=== PATIENT | male | born 1965 | race Caucasian/White ===

== ENCOUNTER 2016-10-01 12:43 | Inpatient (IN) | payer MEDICARE, OTHER ==
[2016-10-01] MEDS ORDERED: SODIUM CHLORIDE 0.9% 1,000 ML IV STA (13:07)
[2016-10-01] MEDS ORDERED: KETOROLAC 30 MG/ML 1 ML VIAL IVP STA (13:07)
--- NOTE | 2016-10-01 13:25 | ED ---
Abdominal Pain HPI - General Chief Complaint: Abdominal Pain Stated Complaint: Abd Pain Time Seen by Provider: 10/01/16 12:58 Source: patient, EMS, RN notes reviewed Mode of arrival: EMS Limitations: no limitations - History of Present Illness Initial Comments: 51-year-old male presents emergency department via EMS chief complaint abdominal pain. Patient states pain is in his mid abdomen and started on Saturday. Patient states that he has a history of pancreatitis to alcohol drinking but he has been sober of alcohol and drugs for 3 years. Patient denies any fever, chills, vomiting diarrhea constipation. He said some nausea. Patient denies any chest pain or shortness breath or back pain from the usual. Patient states that the pain feels that starts as abdomen and slightly radiates to his back. - Related Data Home Medications Medication Instructions Recorded Confirmed Fenofibrate Nanocrystallized 145 mg PO DAILY 08/07/13 10/01/16 [Fenofibrate] Metoprolol Tartrate [Lopressor] 25 mg PO BID 08/07/13 10/01/16 Montelukast [Singulair] 10 mg PO HS 08/07/13 10/01/16 Pravastatin Sodium [Pravachol] 40 mg PO HS 08/07/13 10/01/16 QUEtiapine [SEROquel] 200 mg PO QAM 08/07/13 10/01/16 Doxepin HCl [SINEquan] 100 mg PO HS 02/05/14 10/01/16 Famotidine [Pepcid] 20 mg PO BID 06/11/14 10/01/16 DULoxetine HCL [Cymbalta] 30 mg PO BID 10/01/16 10/01/16 Lubiprostone [Amitiza] 24 mcg PO BID@0900,1400 10/01/16 10/01/16 Meloxicam [Meloxicam] 7.5 mg PO BID 10/01/16 10/01/16 Ondansetron HCl [Zofran] 8 mg PO Q6H PRN 10/01/16 10/01/16 QUEtiapine FUMARATE [SEROquel] 100 mg PO DAILY@1400 10/01/16 10/01/16 QUEtiapine FUMARATE [SEROquel] 400 mg PO HS 10/01/16 10/01/16 Sleep Aid Otc 1 tab PO HS PRN 10/01/16 10/01/16 Varenicline [Chantix] 0.5 mg PO BID 10/01/16 10/01/16 lamoTRIgine [lamoTRIgine] 200 mg PO BID 10/01/16 10/01/16 traZODone HCL 150 mg PO HS 10/01/16 10/01/16 Previous Rx's Medication Instructions Recorded Doxycycline Hyclate 100 mg PO BID #60 tab 06/15/14 Allergies Allergy/AdvReac Type Severity Reaction Status Date / Time haloperidol [From Haldol] AdvReac Hallucinati Verified 10/01/16 13:15 ons haloperidol lactate AdvReac Hallucinati Verified 10/01/16 13:15 [From Haldol] ons Review of Systems ROS Statement: Those systems with pertinent positive or pertinent negative responses have been documented in the HPI. ROS Other: All systems not noted in ROS Statement are negative. Past Medical History Past Medical History: Diabetes Mellitus, Hypertension Additional Past Medical History / Comment(s): chronic back pain, sleep apnea, osteomyolitis, pancreatitis History of Any Multi-Drug Resistant Organisms: MRSA Date of last positivie culture/infection: 2008 MDRO Source:: back Past Surgical History: Back Surgery, Cholecystectomy, Tonsillectomy Additional Past Surgical History / Comment(s): spinal fusion at L4 and L5, pancreatic surg, osteomyelitis Past Anesthesia/Blood Transfusion Reactions: No Reported Reaction Past Psychological History: Anxiety, Depression Smoking Status: Current every day smoker Past Alcohol Use History: None Reported Past Drug Use History: Marijuana, Opiates - Past Family History Mother Family Medical History: No Reported History Additional Family Medical History / Comment(s): Pt states mother had no health problems. Father Family Medical History: No Reported History Additional Family Medical History / Comment(s): Pt states father had no health problems. General Exam Limitations: no limitations General appearance: alert, in no apparent distress Head exam: Present: atraumatic, normocephalic, normal inspection Respiratory exam: Present: normal lung sounds bilaterally. Absent: respiratory distress, wheezes, rales, rhonchi, stridor Cardiovascular Exam: Present: regular rate, normal rhythm, normal heart sounds. Absent: systolic murmur, diastolic murmur, rubs, gallop, clicks GI/Abdominal exam: Present: soft, tenderness (Moderate midabdominal), normal bowel sounds. Absent: distended, guarding, rebound, rigid Back exam: Absent: CVA tenderness (R), CVA tenderness (L) Skin exam: Present: warm, dry, intact, normal color. Absent: rash Course Vital Signs 10/01/16 12:49 Temperature 97.7 F Pulse Rate 87 Respiratory 18 Rate Blood Pressure 136/79 O2 Sat by Pulse 93 L Oximetry Medical Decision Making - Lab Data Result diagrams: 10/01/16 12:42 10/01/16 12:42 Lab Results 10/01/16 10/01/16 10/01/16 Range/Units 12:42 12:42 12:42 WBC 13.7 H (3.8-10.6) k/uL RBC 4.56 (4.30-5.90) m/uL Hgb 14.2 (13.0-17.5) gm/dL Hct 41.2 (39.0-53.0) % MCV 90.4 (80.0-100.0) fL MCH 31.1 (25.0-35.0) pg MCHC 34.3 (31.0-37.0) g/dL RDW 14.4 (11.5-15.5) % Plt Count 220 (150-450) k/uL Neutrophils % 87 % Lymphocytes % 9 % Monocytes % 2 % Eosinophils % 1 % Basophils % 0 % Neutrophils # 11.9 H (1.3-7.7) k/uL Lymphocytes # 1.3 (1.0-4.8) k/uL Monocytes # 0.3 (0-1.0) k/uL Eosinophils # 0.1 (0-0.7) k/uL Basophils # 0.0 (0-0.2) k/uL PT (9.0-12.0) sec INR (<1.2) APTT (22.0-30.0) sec Sodium 133 L (137-145) mmol/L Potassium 4.1 (3.5-5.1) mmol/L Chloride 94 L (98-107) mmol/L Carbon Dioxide 27 (22-30) mmol/L Anion Gap 12 mmol/L BUN 13 (9-20) mg/dL Creatinine 0.80 (0.66-1.25) mg/dL Est GFR (MDRD) Af Amer >60 (>60 ml/min/1.73 sqM) Est GFR (MDRD) Non-Af >60 (>60 ml/min/1.73 sqM) Glucose 309 H (74-99) mg/dL Plasma Lactic Acid Jerrell 2.5 H* (0.7-2.0) mmol/L Calcium 9.5 (8.4-10.2) mg/dL Total Bilirubin 0.5 (0.2-1.3) mg/dL AST 17 (17-59) U/L ALT 33 (21-72) U/L Alkaline Phosphatase 82 (38-126) U/L Total Protein 6.7 (6.3-8.2) g/dL Albumin 3.9 (3.5-5.0) g/dL Amylase 151 H (30-110) U/L Lipase 2207 H (23-300) U/L Urine Color Urine Appearance (Clear) Urine pH (5.0-8.0) Ur Specific [place] (1.001-1.035) Urine Protein (Negative) Urine Glucose (UA) (Negative) Urine Ketones (Negative) Urine Blood (Negative) Urine Nitrite (Negative) Urine Bilirubin (Negative) Urine Urobilinogen (<2.0) mg/dL Ur Leukocyte Esterase (Negative) 10/01/16 10/01/16 Range/Units 12:42 13:42 WBC (3.8-10.6) k/uL RBC (4.30-5.90) m/uL Hgb (13.0-17.5) gm/dL Hct (39.0-53.0) % MCV (80.0-100.0) fL MCH (25.0-35.0) pg MCHC (31.0-37.0) g/dL RDW (11.5-15.5) % Plt Count (150-450) k/uL Neutrophils % % Lymphocytes % % Monocytes % % Eosinophils % % Basophils % % Neutrophils # (1.3-7.7) k/uL Lymphocytes # (1.0-4.8) k/uL Monocytes # (0-1.0) k/uL Eosinophils # (0-0.7) k/uL Basophils # (0-0.2) k/uL PT 10.7 (9.0-12.0) sec INR 1.1 (<1.2) APTT 25.9 (22.0-30.0) sec Sodium (137-145) mmol/L Potassium (3.5-5.1) mmol/L Chloride (98-107) mmol/L Carbon Dioxide (22-30) mmol/L Anion Gap mmol/L BUN (9-20) mg/dL Creatinine (0.66-1.25) mg/dL Est GFR (MDRD) Af Amer (>60 ml/min/1.73 sqM) Est GFR (MDRD) Non-Af (>60 ml/min/1.73 sqM) Glucose (74-99) mg/dL Plasma Lactic Acid Jerrell (0.7-2.0) mmol/L Calcium (8.4-10.2) mg/dL Total Bilirubin (0.2-1.3) mg/dL AST (17-59) U/L ALT (21-72) U/L Alkaline Phosphatase (38-126) U/L Total Protein (6.3-8.2) g/dL Albumin (3.5-5.0) g/dL Amylase (30-110) U/L Lipase (23-300) U/L Urine Color Yellow Urine Appearance Clear (Clear) Urine pH 6.0 (5.0-8.0) Ur Specific [place] 1.025 (1.001-1.035) Urine Protein Trace H (Negative) Urine Glucose (UA) 4+ H (Negative) Urine Ketones Negative (Negative) Urine Blood Negative (Negative) Urine Nitrite Negative (Negative) Urine Bilirubin Negative (Negative) Urine Urobilinogen 2.0 (<2.0) mg/dL Ur Leukocyte Esterase Negative (Negative) Disposition Clinical Impression: Acute pancreatitis Disposition: ADMITTED IP TO THIS HOSP Condition: Fair Referrals: Jordon Wood MD [Primary Care Provider] - 1-2 days
[2016-10-01 13:28] LABS: Basophils % (A) 0 %; CH 31.5; Eosinophils # (A) 0.1 k/uL (0-0.7); Eosinophils % (A) 1 %; HCT 41.2 % (39.0-53.0); HDW 2.53; HGB 14.2 gm/dL (13.0-17.5); Luc % (Auto) 1; Lymphocytes # (A) 1.3 k/uL (1.0-4.8); Lymphocytes % (A) 9 %; MCH 31.1 pg (25.0-35.0); MCHC 34.3 g/dL (31.0-37.0); MCV 90.4 fL (80.0-100.0); Mean Platelet Volume 8.1; Monocytes # (A) 0.3 k/uL (0-1.0); Monocytes % (A) 2 %; Neutrophils # (A) 11.9 k/uL (1.3-7.7); Neutrophils % (A) 87 %; RBC 4.56 m/uL (4.30-5.90); RDW 14.4 % (11.5-15.5); WBC 13.7 k/uL (3.8-10.6); WBC (Perox) 14.12
[2016-10-01 13:31] LABS: ALT 33 U/L (21-72); AST 17 U/L (17-59); Alkaline Phosphatase 82 U/L (38-126); Amylase 151 U/L (30-110); Blood Urea Nitrogen 13 mg/dL (9-20); Calcium 9.5 mg/dL (8.4-10.2); Carbon Dioxide 27 mmol/L (22-30); Chloride 94 mmol/L (98-107); Glucose 309 mg/dL (74-99); Non-African American GFR(MDRD) >60 (>60 ml/min/1.73 sqM); Potassium 4.1 mmol/L (3.5-5.1); Total Bilirubin 0.5 mg/dL (0.2-1.3); Total Protein 6.7 g/dL (6.3-8.2)
[2016-10-01] MEDS ORDERED: RX INFO: IV CONTRAST WAS GIVEN 1 EACH MISC MISCELLANE PRN (13:32)
[2016-10-01 13:39] LABS: INR 1.1 (<1.2); Partial Thromboplastin Time 25.9 sec (22.0-30.0); Prothrombin Time 10.7 sec (9.0-12.0)
[2016-10-01 13:55] LABS: Appearance,Urine Clear (Clear); Bilirubin,Urine Negative (Negative); Glucose,Urine (UA) 4+ (Negative); Ketones,Urine Negative (Negative); Leukocyte Esterase,Urine Negative (Negative); Nitrite,Urine Negative (Negative); Protein,Urine Trace (Negative); Specific Gravity,Urine 1.025 (1.001-1.035); UA Billing (MACRO vs. MICRO) CHEM
[2016-10-01 14:10] LABS: Anion Gap 12 mmol/L; Sodium 133 mmol/L (137-145)
--- NOTE | 2016-10-01 15:11 | CT ---
EXAMINATION TYPE: CT abdomen pelvis w con DATE OF EXAM: 10/01/2016 COMPARISON: CT abdomen pelvis dated 08/07/2013. HISTORY: Mid abdominal pain. History of pancreatitis. CT DLP: 2080.70 mGycm Automated exposure control for dose reduction was used. TECHNIQUE: Helical acquisition of images was performed from the lung bases through the pelvis. CONTRAST: Performed without Oral Contrast and with IV Contrast, patient injected with 100 mL of Omnipaque 300. FINDINGS: LUNG BASES: Left hemidiaphragm is elevated with left lower lobe subsegmental atelectasis, developed i n the interim. Minimal right basilar subsegmental atelectasis is also incidentally noted. LIVER/GB: Hepatic attenuation is homogeneous. No intrahepatic biliary ductal dilatation. Cholecystect sachin clips are seen within the gallbladder fossa. PANCREAS: There is atrophy of the pancreatic tail and diffuse peripancreatic fat stranding of the rosenberg creatic body, pancreatic head, and uncinate process. A small peripancreatic fluid collection is noted that is associated with the lesser curvature of the gastric body measuring 4.1 x 2.5 cm. This was pr esent on the prior examination of 08/07/2013 and may represent a gastric diverticulum or chronic peripa ncreatic fluid collection. This is overall and unchanged and therefore unlikely to represent a peripa ncreatic abscess. The pancreas is ill-defined due to surrounding fat stranding in atrophy and therefo re evaluation for pancreatic necrosis is limited. No splenic aneurysm is identified. SPLEEN: No significant abnormality is seen. ADRENALS: No significant abnormality is seen. KIDNEYS: A hardening artifact from metallic postsurgical changes of the lumbar spine create decreased visualization of the inferior pole of the right kidney creating artifactual hypoattenuation. FREE AIR: No free air is visualized. RETROPERITONEAL ADENOPATHY: Peripancreatic adenopathy is seen with the largest lymph node measuring up to 1.2 cm in short axis on series 3 image 28. REPRODUCTIVE ORGANS: No significant abnormality is seen URINARY BLADDER: No significant abnormality is seen. PELVIC ADENOPATHY: None visualized. OSSEOUS STRUCTURES: Postsurgical changes are seen of the lower lumbar spine. There is straightening of the usual lumbar lordosis and degenerative changes of the thoracolumbar spine. Osseous structures are intact. BOWEL: Few sigmoid diverticula are seen without surrounding pericolonic fat stranding. OTHER: None IMPRESSION: 1. ACUTE PANCREATITIS WITH REACTIVE PERIPANCREATIC ADENOPATHY. 2. FLUID COLLECTION JUST SUPERIOR TO THE PANCREAS CLOSELY ASSOCIATED WITH THE GASTRIC BODY THAT IS OV ERALL STABLE DATING BACK TO 08/07/2013 AND MAY REPRESENT A GASTRIC DIVERTICULUM OR CHRONIC PSEUDOCYST. FINDINGS DISCUSSED WITH THE ORDERING PHYSICIAN DR. LAMB BY DR. MONTELONGO AT 1505 ON 10/01/2016.
[2016-10-01] MEDS ORDERED: SODIUM CHLORIDE 0.9% 2,000 ML IV ONE (15:14)
[2016-10-01] MEDS ORDERED: NALOXONE 0.4 MG/ML 1 ML VIAL IV PRN (15:15)
[2016-10-01] MEDS ORDERED: ONDANSETRON 4 MG/2 ML VIAL IVP PRN (15:15)
[2016-10-01] MEDS: SODIUM CHLORIDE 0.9% 1,000 ML IV SCH (15:57)
[2016-10-01 16:51] LABS: Glucose,Whole Blood 262 mg/dL (75-99)
[2016-10-01 16:58] VITALS: BMI 37.3
[2016-10-01] MEDS: VARENICLINE 0.5 MG TAB PO SCH (18:51)
[2016-10-01] MEDS: traZODone HCL 50 MG TAB PO SCH (19:56)
[2016-10-01] MEDS: PRAVASTATIN SODIUM 40 MG TAB PO SCH (19:57)
[2016-10-01] MEDS: QUEtiapine 200 MG TAB PO SCH (19:57)
[2016-10-01] MEDS: MONTELUKAST 10 MG TAB PO SCH (19:57)
[2016-10-01] MEDS: METOPROLOL TARTRATE 25 MG TAB PO SCH (19:57)
[2016-10-01] MEDS: DULoxetine HCL 30 MG CAPSULE.DR PO SCH (19:58)
[2016-10-01] MEDS: FAMOTIDINE 20 MG TAB PO SCH (19:58)
[2016-10-01] MEDS: lamoTRIgine 100 MG TAB PO SCH (19:58)
[2016-10-01] MEDS: DOXYCYCLINE 50 MG CAP PO SCH (19:59)
[2016-10-01] MEDS: KETOROLAC 30 MG/ML 1 ML VIAL IVP PRN (19:59)
[2016-10-01] MEDS: DOXEPIN 25 MG CAP PO SCH (19:59)
[2016-10-01 20:56] LABS: Glucose,Whole Blood 189 mg/dL (75-99)
--- NOTE | 2016-10-01 21:30 | P.HPIM ---
History of Present Illness H&P Date: 10/01/16 Chief Complaint: Abdominal pain This is a 51-year-old patient of Dr. thomas. Chronic stable medical conditions include diabetes, hypertension, anxiety depression, sleep apnea uses CPAP machine. Patient got chronic pain. Patient had discitis and osteomyelitis of the spine. For 4 days patient been having increasing abdominal pain diffuse going to the back some nausea denies any fever and chills bowel pattern is unchanged. Patient diagnosed with acute pancreatitis in the ER and admitted for the same. Patient last alcoholic drink was about 2 or 3 years ago he states. Significant past medical history: Diabetes type 2, hypertension, chronic pain syndrome, obstructive sleep apnea, anxiety depression, discitis and os tenderness of the spine. Review of Systems GEN.: Tired EYES: None HEENT: None NECK: None RESPIRATORY: Some wheezing cough shortness of breath CARDIOVASCULAR: None GASTROINTESTINAL: As above GENITOURINARY: None MUSCULOSKELETAL: Chronic low back pain LYMPHATICS: None HEMATOLOGICAL: None PSYCHIATRY: Anxiety NEUROLOGICAL: None Past Medical History Past Medical History: Diabetes Mellitus, Hypertension Additional Past Medical History / Comment(s): chronic back pain, sleep apnea, osteomyolitis, pancreatitis History of Any Multi-Drug Resistant Organisms: MRSA Date of last positivie culture/infection: 2008 MDRO Source:: back Past Surgical History: Back Surgery, Cholecystectomy, Tonsillectomy Additional Past Surgical History / Comment(s): spinal fusion at L4 and L5, pancreatic surgery Past Anesthesia/Blood Transfusion Reactions: No Reported Reaction Past Psychological History: Anxiety, Bipolar, Depression Smoking Status: Current every day smoker Past Alcohol Use History: None Reported Past Drug Use History: Marijuana, Opiates Additional History: Patient smoking a pack a day for close to 34 years. Last alcoholic drink was about 2 years ago. She did did take opiates and marijuana in the past. Lives with his roommate - Past Family History Mother Family Medical History: No Reported History Additional Family Medical History / Comment(s): Pt states mother had no health problems. Father Family Medical History: No Reported History Additional Family Medical History / Comment(s): Pt states father had no health problems. Medications and Allergies Home Medications Medication Instructions Recorded Confirmed Type Fenofibrate Nanocrystallized 145 mg PO DAILY 08/07/13 10/01/16 History [Fenofibrate] Metoprolol Tartrate [Lopressor] 25 mg PO BID 08/07/13 10/01/16 History Montelukast [Singulair] 10 mg PO HS 08/07/13 10/01/16 History Pravastatin Sodium [Pravachol] 40 mg PO HS 08/07/13 10/01/16 History QUEtiapine [SEROquel] 200 mg PO QAM 08/07/13 10/01/16 History Doxepin HCl [SINEquan] 100 mg PO HS 02/05/14 10/01/16 History Famotidine [Pepcid] 20 mg PO BID 06/11/14 10/01/16 History DULoxetine HCL [Cymbalta] 30 mg PO BID 10/01/16 10/01/16 History Lubiprostone [Amitiza] 24 mcg PO BID@0900,1400 10/01/16 10/01/16 History Meloxicam [Meloxicam] 7.5 mg PO BID 10/01/16 10/01/16 History Ondansetron HCl [Zofran] 8 mg PO Q6H PRN 10/01/16 10/01/16 History QUEtiapine FUMARATE [SEROquel] 100 mg PO DAILY@1400 10/01/16 10/01/16 History QUEtiapine FUMARATE [SEROquel] 400 mg PO HS 10/01/16 10/01/16 History Sleep Aid Otc 1 tab PO HS PRN 10/01/16 10/01/16 History Varenicline [Chantix] 0.5 mg PO BID 10/01/16 10/01/16 History lamoTRIgine [lamoTRIgine] 200 mg PO BID 10/01/16 10/01/16 History traZODone HCL 150 mg PO HS 10/01/16 10/01/16 History Allergies Allergy/AdvReac Type Severity Reaction Status Date / Time haloperidol [From Haldol] AdvReac Hallucinati Verified 10/01/16 13:15 ons haloperidol lactate AdvReac Hallucinati Verified 10/01/16 13:15 [From Haldol] ons Physical Exam Vitals: Vital Signs Temp Pulse Pulse Resp BP BP Pulse Ox 10/01/16 16:34 97.6 F 76 16 97/59 91 L 10/01/16 16:00 97.9 F 77 18 105/58 92 L 10/01/16 12:49 97.7 F 87 18 136/79 93 L Intake and Output Patient Weight 10/02/16 06:59 Weight 128.593 kg VITAL SIGNS: Reviewed. BMI noted GENERAL: Average built, laying in bed tired appearing. EYES: Pupils equal. Conjunctiva normal. HEENT: External appearance of nose and ears normal, oral cavity grossly normal. NECK: JVD not raised; masses not palpable. HEART: First and second heart sounds are normal; no edema. LUNGS: Respiratory rate increased, diminished breath sounds and wheezing. ABDOMEN: Soft, tender, no guarding or rigidity, liver spleen not palpable, no masses palpable. LYMPHATICS: No lymph nodes palpable in the axilla and neck. PSYCH: Alert and oriented x3; mood and affect normal. NEUROLOGICAL: Cranial nerves grossly intact; no facial asymmetry, power and sensation grossly intact. Results CBC & Chem 7: 10/01/16 12:42 10/01/16 12:42 Labs: Abnormal Lab Results - Last 24 Hours (Table) 10/01/16 10/01/16 10/01/16 Range/Units 12:42 12:42 12:42 WBC 13.7 H (3.8-10.6) k/uL Neutrophils # 11.9 H (1.3-7.7) k/uL Sodium 133 L (137-145) mmol/L Chloride 94 L (98-107) mmol/L Glucose 309 H (74-99) mg/dL POC Glucose (mg/dL) (75-99) mg/dL Plasma Lactic Acid Jerrell 2.5 H* (0.7-2.0) mmol/L Amylase 151 H (30-110) U/L Lipase 2207 H (23-300) U/L Urine Protein (Negative) Urine Glucose (UA) (Negative) 10/01/16 10/01/16 10/01/16 Range/Units 13:42 16:49 20:54 WBC (3.8-10.6) k/uL Neutrophils # (1.3-7.7) k/uL Sodium (137-145) mmol/L Chloride (98-107) mmol/L Glucose (74-99) mg/dL POC Glucose (mg/dL) 262 H 189 H (75-99) mg/dL Plasma Lactic Acid Jerrell (0.7-2.0) mmol/L Amylase (30-110) U/L Lipase (23-300) U/L Urine Protein Trace H (Negative) Urine Glucose (UA) 4+ H (Negative) Computed tomography scan abdomen results noted Assessment and Plan Plan: Assessment: Acute pancreatitis in a patient with history of fracture alcoholism Diabetes mellitus type 2 uncontrolled infection -Assessment essential hypertension Obstetrical sleep apnea uses CPAP machine Anxiety depression not otherwise specified Chronic chronic diverticulosis History of spinal osteomyelitis and discitis Obesity BMI 37.4 COPD in a current smoker Chronic nicotine dependence patient is a cigarette smoker Plan: Patient counseled against smoking and will be started on nicotine patch. Patient been made nothing by mouth except for ice chips given IV fluids patient can take his home medications care was discussed with the patient. Questions were answered
[2016-10-02 03:18] LABS: Glucose,Whole Blood 209 mg/dL (75-99)
[2016-10-02] MEDS: KETOROLAC 30 MG/ML 1 ML VIAL IVP PRN ×4 (03:34→19:04)
[2016-10-02] MEDS: SODIUM CHLORIDE 0.9% 1,000 ML IV SCH ×2 (03:37→14:15)
[2016-10-02 07:33] LABS: Glucose,Whole Blood 197 mg/dL (75-99)
[2016-10-02] MEDS: ALBUTEROL NEBULIZED 2.5 MG/3 ML INHALATION SCH ×4 (07:45→20:17)
[2016-10-02] MEDS: DOXYCYCLINE 50 MG CAP PO SCH ×2 (08:27→21:27)
[2016-10-02] MEDS: VARENICLINE 0.5 MG TAB PO SCH ×2 (08:27→17:32)
[2016-10-02] MEDS: lamoTRIgine 100 MG TAB PO SCH ×2 (08:28→21:27)
[2016-10-02] MEDS: DULoxetine HCL 30 MG CAPSULE.DR PO SCH ×2 (08:28→21:27)
[2016-10-02] MEDS: FAMOTIDINE 20 MG TAB PO SCH ×2 (08:28→21:27)
[2016-10-02] MEDS: FENOFIBRATE 160 MG TAB PO SCH (08:28)
[2016-10-02] MEDS: QUEtiapine 200 MG TAB PO SCH ×2 (08:29→21:27)
[2016-10-02] MEDS: METOPROLOL TARTRATE 25 MG TAB PO SCH ×2 (08:29→21:27)
[2016-10-02 08:39] LABS: Amylase 131 U/L (30-110); Anion Gap 8 mmol/L; Blood Urea Nitrogen 13 mg/dL (9-20); Calcium 8.6 mg/dL (8.4-10.2); Carbon Dioxide 26 mmol/L (22-30); Chloride 105 mmol/L (98-107); Glucose 144 mg/dL (74-99); Non-African American GFR(MDRD) >60 (>60 ml/min/1.73 sqM); Potassium 3.7 mmol/L (3.5-5.1); Sodium 139 mmol/L (137-145)
[2016-10-02 09:58] LABS: Glucose,Whole Blood 110 mg/dL (75-99)
[2016-10-02 11:42] LABS: Glucose,Whole Blood 73 mg/dL (75-99)
[2016-10-02 12:04] LABS: Glucose,Whole Blood 72 mg/dL (75-99)
[2016-10-02 13:50] LABS: Glucose,Whole Blood 83 mg/dL (75-99)
[2016-10-02] MEDS: QUEtiapine 100 MG TAB PO SCH (14:15)
--- NOTE | 2016-10-02 15:47 | P.PN ---
Progress Note - Text Date of service: 10/02/2016 Presenting complaint abdominal pain Interval history: This is a 51-year-old patient of Dr. thomas. Chronic stable medical conditions include diabetes, hypertension, anxiety depression, sleep apnea uses CPAP machine. Patient got chronic pain. Patient had discitis and osteomyelitis of the spine. For 4 days patient been having increasing abdominal pain diffuse going to the back some nausea denies any fever and chills bowel pattern is unchanged. Patient diagnosed with acute pancreatitis in the ER and admitted for the same. Patient last alcoholic drink was about 2 or 3 years ago he states. 10/02/2016 Today patient still having abdominal pain diffuse. No nausea vomiting. No fever. No bowel movement. Laying in bed. Tired appearing. Review of systems: Was done for constitutional, cardiovascular, GI, pulmonary. relevant finding as above Current medications are reviewed Assessment: Vitals: 96.1, 82, 18, 141/86, 96% room air GENERAL: laying in bed tired appearing. EYES: Pupils equal. Conjunctiva normal. HEENT: External appearance of nose and ears normal, oral cavity grossly normal. NECK: JVD not raised; masses not palpable. HEART: First and second heart sounds are normal; no edema. LUNGS: Respiratory rate increased, diminished breath sounds and wheezing. ABDOMEN: Soft, diffuse tender, no guarding or rigidity, liver spleen not palpable, no masses palpable. PSYCH: Alert and oriented x3; mood and affect normal. Labs: Potassium 3.7 Amylase 131, lipase 1944 Assessment: Acute pancreatitis in a patient with history of alcoholism, slow to respond Diabetes mellitus type 2 uncontrolled infection -essential hypertension Obstructive sleep apnea uses CPAP machine Anxiety depression not otherwise specified Chronic colonic diverticulosis History of spinal osteomyelitis and discitis Obesity BMI 37.4 COPD in a current smoker Chronic nicotine dependence patient is a cigarette smoker Plan: Patient be kept on ice chips. Care was discussed with the patient. Encouraged to sit up in a chair. Continue with IV fluids. Increase to 1 25 mL an hour
[2016-10-02 16:27] LABS: Glucose,Whole Blood 122 mg/dL (75-99)
[2016-10-02] MEDS: LACTATED RINGERS 1,000 ML IV SCH (17:28)
[2016-10-02 17:45] LABS: Glucose,Whole Blood 116 mg/dL (75-99)
[2016-10-02 21:03] LABS: Glucose,Whole Blood 123 mg/dL (75-99)
[2016-10-02] MEDS: traZODone HCL 50 MG TAB PO SCH (21:26)
[2016-10-02] MEDS: PRAVASTATIN SODIUM 40 MG TAB PO SCH (21:27)
[2016-10-02] MEDS: MONTELUKAST 10 MG TAB PO SCH (21:27)
[2016-10-02] MEDS: DOXEPIN 25 MG CAP PO SCH (21:28)
[2016-10-02] MEDS: ACETAMINOPHEN TAB 325 MG TAB PO PRN (23:02)
[2016-10-03] MEDS: ALBUTEROL NEBULIZED 2.5 MG/3 ML INHALATION SCH ×6 (00:57→21:10)
[2016-10-03 01:58] LABS: Glucose,Whole Blood 146 mg/dL (75-99)
[2016-10-03] MEDS: KETOROLAC 30 MG/ML 1 ML VIAL IVP PRN ×4 (02:21→21:26)
[2016-10-03] MEDS: LACTATED RINGERS 1,000 ML IV SCH ×3 (02:24→14:59)
[2016-10-03] MEDS: ACETAMINOPHEN TAB 325 MG TAB PO PRN (05:12)
[2016-10-03 06:58] LABS: Glucose,Whole Blood 161 mg/dL (75-99)
[2016-10-03 09:17] LABS: Basophils % (A) 0 %; CH 31.2; CHCM 33.7; Eosinophils # (A) 0.2 k/uL (0-0.7); Eosinophils % (A) 3 %; HCT 35.5 % (39.0-53.0); HDW 2.43; HGB 11.5 gm/dL (13.0-17.5); Luc # (Auto) 0.13; Luc % (Auto) 2; Lymphocytes # (A) 2.1 k/uL (1.0-4.8); Lymphocytes % (A) 28 %; MCH 30.2 pg (25.0-35.0); MCHC 32.5 g/dL (31.0-37.0); Mean Platelet Volume 8.1; Monocytes # (A) 0.3 k/uL (0-1.0); Monocytes % (A) 4 %; Neutrophils # (A) 4.7 k/uL (1.3-7.7); Neutrophils % (A) 62 %; RBC 3.81 m/uL (4.30-5.90); WBC 7.5 k/uL (3.8-10.6)
[2016-10-03] MEDS: VARENICLINE 0.5 MG TAB PO SCH ×2 (09:17→18:31)
[2016-10-03] MEDS: lamoTRIgine 100 MG TAB PO SCH ×2 (09:18→21:26)
[2016-10-03] MEDS: METOPROLOL TARTRATE 25 MG TAB PO SCH ×2 (09:18→21:25)
[2016-10-03] MEDS: QUEtiapine 200 MG TAB PO SCH ×2 (09:18→21:26)
[2016-10-03] MEDS: DOXYCYCLINE 50 MG CAP PO SCH ×2 (09:18→21:25)
[2016-10-03] MEDS: DULoxetine HCL 30 MG CAPSULE.DR PO SCH ×2 (09:19→21:25)
[2016-10-03] MEDS: FENOFIBRATE 160 MG TAB PO SCH (09:19)
[2016-10-03] MEDS: FAMOTIDINE 20 MG TAB PO SCH ×2 (09:19→21:26)
[2016-10-03 09:30] LABS: Amylase 67 U/L (30-110); Anion Gap 9 mmol/L; Blood Urea Nitrogen 11 mg/dL (9-20); Calcium 8.5 mg/dL (8.4-10.2); Carbon Dioxide 26 mmol/L (22-30); Chloride 103 mmol/L (98-107); Glucose 155 mg/dL (74-99); Non-African American GFR(MDRD) >60 (>60 ml/min/1.73 sqM); Potassium 3.8 mmol/L (3.5-5.1); Sodium 138 mmol/L (137-145)
[2016-10-03 10:20] LABS: Glucose,Whole Blood 182 mg/dL (75-99)
[2016-10-03] MEDS ORDERED: ACETAMINOPHEN IV (For NPO) 1,000 MG in EMPTY BAG 1 BAG IVPB ONE (10:30)
[2016-10-03 11:55] LABS: Glucose,Whole Blood 175 mg/dL (75-99)
[2016-10-03] MEDS: NON-FORMULARY DRUG (Lubiprostone [Amitiza] 24 MCG) PO SCH (13:04)
[2016-10-03] MEDS: QUEtiapine 100 MG TAB PO SCH (13:47)
[2016-10-03 17:11] LABS: Glucose,Whole Blood 244 mg/dL (75-99)
--- NOTE | 2016-10-03 18:26 | P.PN ---
<Bella Llamas - Last Filed: 10/03/16 18:15> Progress Note - Text DATE OF SERVICE: 10/03/2016 PRESENTING COMPLAINT: Abdominal pain INTERVAL HISTORY: 51-year-old patient of Dr. Wood. Chronic stable medical conditions include diabetes hypertension anxiety depression sleep apnea uses a CPAP machine. Patient has chronic pain, discitis and osteomyelitis of the spine. For 4 days patient had been having increasing abdominal pain diffuse going to the back and some nausea denied any fevers or chills or any bowel pattern changes. Patient diagnosed with acute pancreatitis in the ER and admitted for the same. Patient' s last alcoholic drink was about 2-3 years ago. 10/02/2016 Today patient still having abdominal pain diffuse. No nausea vomiting. No fever. No bowel movement. Laying in bed. Tired appearing. 10/03/2016: Patient continues to complain of diffuse abdominal pain stating his pain is not being well controlled. No nausea no vomiting no fever, no bowel movement. Lying in bed with his CPAP machine on. Appears slightly agitated yet tired. REVIEW OF SYSTEMS: Done for constitutional ,cardiovascular, GI, pulmonary with relevant findings as above. CURRENT MEDICATIONS Doxepin, Vibramycin, Cymbalta, Pepcid, Lamictal, Lopressor, Seroquel., PHYSICAL EXAM VITAL SIGNS: Temperature 97.3, pulse 71, respiratory rate 18, blood pressure 145/95, oxygen saturation 98%. GENERAL APPEARANCE: Obese. Lying in bed, not in distress. EYES: Pupils equal. Conjunctiva normal. NECK: JVD not raised. Mass not palpable. RESPIRATORY: Respiratory effort normal. Diminished breath sounds with wheezing bilaterally. CARDIOVASCULAR: First and second sounds normal. No edema. ABDOMEN: Soft. Liver and spleen not palpable. No tenderness. No mass palpable. PSYCHIATRY: Alert and oriented x3. Mood and affect normal. INVESTIGATIONS: Hemoglobin 11.5, Accu-Cheks noted. All other labs are unremarkable ASSESSMENT: -Acute pancreatitis in a patient with history of alcoholism slow to respond. -Diabetes mellitus type 2 uncontrolled, line-essential hypertension. -Obstructive sleep apnea uses CPAP machine. -Anxiety depression not otherwise specified. -Chronic colonic diverticulosis. -History of spinal osteomyelitis and discitis. -Obesity body mass index of 37.4. -COPD and a current smoker. -Chronic nicotine dependence patient is a cigarette smoker. PLAN: Pain is improved, diet was advanced and patient tolerating this. We'll continue current medication and treatment plan, plan of care discussed with the patient and he is in agreement. 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 Mendoza <Guy Mendoza - Last Filed: 10/03/16 23:08> Progress Note - Text Attending note. Date of service-10/03/2016 This patient was seen and examined by me . I reviewed the note of my nurse practitioner, Ms. Llamas. Discussed with her, additional findings as below. Admitted with acute pancreatitis. Abdominal pain is doing better. Tolerating some clear liquids. On examination: Decrease abdominal tenderness. Investigations: Amylase normal at 67, lipase 837 Assessment and plan: Acute pancreatitis with both biochemical and clinical improvement Started on clear liquids advance diet as tolerated
[2016-10-03] MEDS: PRAVASTATIN SODIUM 40 MG TAB PO SCH (21:25)
[2016-10-03] MEDS: traZODone HCL 50 MG TAB PO SCH (21:25)
[2016-10-03] MEDS: MONTELUKAST 10 MG TAB PO SCH (21:25)
[2016-10-03] MEDS: DOXEPIN 25 MG CAP PO SCH (21:25)
[2016-10-03 21:40] LABS: Glucose,Whole Blood 137 mg/dL (75-99)
[2016-10-03] MEDS ORDERED: ALBUTEROL NEBULIZED 2.5 MG/3 ML INHALATION PRN (23:08)
[2016-10-04] MEDS: LACTATED RINGERS 1,000 ML IV SCH ×3 (00:06→16:34)
[2016-10-04 02:05] LABS: Glucose,Whole Blood 96 mg/dL (75-99)
[2016-10-04] MEDS: ALBUTEROL NEBULIZED 2.5 MG/3 ML INHALATION SCH ×3 (07:08→15:37)
[2016-10-04 07:28] LABS: Glucose,Whole Blood 78 mg/dL (75-99)
[2016-10-04 07:28] LABS: Glucose,Whole Blood 61 mg/dL (75-99)
[2016-10-04 07:28] LABS: Glucose,Whole Blood 47 mg/dL (75-99)
[2016-10-04] MEDS: DULoxetine HCL 30 MG CAPSULE.DR PO SCH (07:59)
[2016-10-04] MEDS: DOXYCYCLINE 50 MG CAP PO SCH (08:00)
[2016-10-04] MEDS: FAMOTIDINE 20 MG TAB PO SCH (08:00)
[2016-10-04] MEDS: VARENICLINE 0.5 MG TAB PO SCH (08:00)
[2016-10-04] MEDS: lamoTRIgine 100 MG TAB PO SCH (08:00)
[2016-10-04] MEDS: QUEtiapine 200 MG TAB PO SCH (08:00)
[2016-10-04] MEDS: METOPROLOL TARTRATE 25 MG TAB PO SCH (08:01)
[2016-10-04] MEDS: KETOROLAC 30 MG/ML 1 ML VIAL IVP PRN ×2 (08:01→13:53)
[2016-10-04] MEDS: FENOFIBRATE 160 MG TAB PO SCH (08:01)
[2016-10-04 08:12] LABS: Glucose,Whole Blood 192 mg/dL (75-99)
[2016-10-04 09:22] LABS: Amylase 59 U/L (30-110); Anion Gap 9 mmol/L; Blood Urea Nitrogen 9 mg/dL (9-20); Calcium 9.4 mg/dL (8.4-10.2); Carbon Dioxide 31 mmol/L (22-30); Chloride 102 mmol/L (98-107); Glucose 175 mg/dL (74-99); Non-African American GFR(MDRD) >60 (>60 ml/min/1.73 sqM); Potassium 4.2 mmol/L (3.5-5.1); Sodium 142 mmol/L (137-145)
[2016-10-04 09:25] LABS: Glucose,Whole Blood 192 mg/dL (75-99)
[2016-10-04 12:22] LABS: Glucose,Whole Blood 160 mg/dL (75-99)
[2016-10-04] MEDS: QUEtiapine 100 MG TAB PO SCH (14:05)
[2016-10-04 14:58] VITALS: BP 148/85; PULSE 86; RESP 19; TEMP 98
--- NOTE | 2016-10-05 18:46 | P.DS ---
Providers Date of admission: 10/01/16 15:30 Expected date of discharge: 10/04/16 Attending physician: Guy Mendoza Primary care physician: Jordon Wood Hospital Course: Final diagnosis: -Acute pancreatitis in a patient with history of alcoholism slow to respond. -Diabetes mellitus type 2 uncontrolled, line-essential hypertension. -Obstructive sleep apnea uses CPAP machine. -Anxiety depression not otherwise specified. -Chronic colonic diverticulosis. -History of spinal osteomyelitis and discitis. -Obesity body mass index of 37.4. -COPD and a current smoker. -Chronic nicotine dependence patient is a cigarette smoker. Hospital course: This is a patient who had excessive alcohol in the past stopped about 2-3 years ago presents with acute pancreatitis. Patient was managed conservatively. By the time of discharge abdominal pain had nearly resolved and patient was tolerating a soft diet. Physical examination: Abdomen soft nontender, psych AO 3 Patient Condition at Discharge: Fair Plan - Discharge Summary New Discharge Prescriptions: Continue QUEtiapine [SEROquel] 200 mg PO QAM Fenofibrate Nanocrystallized [Fenofibrate] 145 mg PO DAILY Pravastatin Sodium [Pravachol] 40 mg PO HS Montelukast [Singulair] 10 mg PO HS Metoprolol Tartrate [Lopressor] 25 mg PO BID Doxepin HCl [SINEquan] 100 mg PO HS Famotidine [Pepcid] 20 mg PO BID Doxycycline Hyclate 100 mg PO BID #60 tab DULoxetine HCL [Cymbalta] 30 mg PO BID QUEtiapine FUMARATE [SEROquel] 400 mg PO HS QUEtiapine FUMARATE [SEROquel] 100 mg PO DAILY@1400 traZODone HCL 150 mg PO HS lamoTRIgine 200 mg PO BID Meloxicam 7.5 mg PO BID Varenicline [Chantix] 0.5 mg PO BID Lubiprostone [Amitiza] 24 mcg PO BID@0900,1400 Ondansetron HCl [Zofran] 8 mg PO Q6H PRN PRN Reason: Nausea No Action Sleep Aid Otc 1 tab PO HS PRN PRN Reason: Insomnia Discharge Medication List Fenofibrate Nanocrystallized [Fenofibrate] 145 mg PO DAILY 08/07/13 [History] Metoprolol Tartrate [Lopressor] 25 mg PO BID 08/07/13 [History] Montelukast [Singulair] 10 mg PO HS 08/07/13 [History] Pravastatin Sodium [Pravachol] 40 mg PO HS 08/07/13 [History] QUEtiapine [SEROquel] 200 mg PO QAM 08/07/13 [History] Doxepin HCl [SINEquan] 100 mg PO HS 02/05/14 [History] Famotidine [Pepcid] 20 mg PO BID 06/11/14 [History] Doxycycline Hyclate 100 mg PO BID #60 tab 06/15/14 [Rx] DULoxetine HCL [Cymbalta] 30 mg PO BID 10/01/16 [History] Lubiprostone [Amitiza] 24 mcg PO BID@0900,1400 10/01/16 [History] Meloxicam 7.5 mg PO BID 10/01/16 [History] Ondansetron HCl [Zofran] 8 mg PO Q6H PRN 10/01/16 [History] QUEtiapine FUMARATE [SEROquel] 100 mg PO DAILY@1400 10/01/16 [History] QUEtiapine FUMARATE [SEROquel] 400 mg PO HS 10/01/16 [History] Sleep Aid Otc 1 tab PO HS PRN 10/01/16 [History] Varenicline [Chantix] 0.5 mg PO BID 10/01/16 [History] lamoTRIgine 200 mg PO BID 10/01/16 [History] traZODone HCL 150 mg PO HS 10/01/16 [History] Follow up Appointment(s)/Referral(s): Jordon Wood MD [Primary Care Provider] - 10/09/16 3:15 pm Patient Instructions/Handouts: Pancreatitis (DC) Activity/Diet/Wound Care/Special Instructions: Soft bland, diabetic diet. NO smoking, cessation information given. No alcohol consumption. Bipap at home with previous setting. Discharge Disposition: HOME SELF-CARE
--- NOTE | 2016-10-08 16:42 | CDI ---
In responding to this query, please exercise your independent professional judgment. The [facility] Coding Staff and Clinical Documentation Specialists appreciate your assistance in clarifying documentation, maintaining compliance with coding guidelines, accurately documenting patients condition and capturing severity of illness. The fact that a question is asked does not imply that any particular answer is desired or expected. Communication forms are a method of clarifying documentation and are not made part of the Legal Health Record. Thank you in advance for your clarification. Last Revision, January 2015 Prem Mckoy [address] [place] [address] Documentation Clarification Form Date: 10/08/2016 4:28:00 PM From: Yasmeen Bernstein [facility] Admit Date: 10/01/2016 3:30:00 PM Patient Name: Sergio Martini Visit Number: [id number] Discharge Date: 10-04-16 Dr. Guy Mendoza Please clarify if the patient has diabetes mellitus --"Diabetes type II, uncontrolled" is on the Discharge Summary. Patient is not on any diabetic medications. YOU MAY INDICATE YOUR RESPONSE TO THIS QUERY FORM AT THE BOTTOM BY INSERTING TEXT. IN DOING SO, YOU WILL NOT NEED TO DO AN ADDENDUM. Clinical Indicators : Glucose: 7--17 = 309, 8-1-17 = 144, 8-2-17 = 155, 8-3- 17 = 175. POC glucose --17 at 1659 = 262. 8-3-17 at 0658 = 47. 8-3-17 at 0659 = 61. 8 -3-17 at 0714 = 78. 8-3-17 at 0811 = 192. at 0921 = 192. at 1215 = 160. Treatment: No insulin or oral diabetes medication given during hospital stay or prescribed at discharge. No dietary consult. In order to capture the severity of Illness and necessary documentation specificity, please clarify: DM Type 1 DM Type 2 DM due to underlying condition, specify (e.g. Cushings syndrome) Drug/chemical induced DM (document the drug/chemical) Gestational DM Unable to Determine Other Condition Please document any body system complications or specific manifestations related to the diabetes: Diabetic Nephropathy Diabetic Autonomic Neuropathy Diabetic Amyotrophy Diabetic Peripheral Vascular Disease Proliferative diabetic retinopathy with macular edema Diabetic foot ulcers, specify location Ketoacidosis Hypoglycemia with or without coma Hyperglycemia Hyperosmolarity Coma/nonketotic hyperglycemic-hyperosmolar coma Other condition If you have a question about this query, please contact Ade Barnett Law Researcher at [phone] between 8am-5pm. FYI: Press F11 to launch patient chart. BULMARO
--- NOTE | 2016-10-15 12:55 | CDI ---
In responding to this query, please exercise your independent professional judgment. The [facility] Coding Staff and Clinical Documentation Specialists appreciate your assistance in clarifying documentation, maintaining compliance with coding guidelines, accurately documenting patients condition and capturing severity of illness. The fact that a question is asked does not imply that any particular answer is desired or expected. Communication forms are a method of clarifying documentation and are not made part of the Legal Health Record. Thank you in advance for your clarification. Last Revision, January 2015 Prem Mckoy [address] [place] [address] Documentation Clarification Form Date: 10/08/2016 4:28:00 PM From: Yasmeen Bernstein [facility] Admit Date: 10/01/2016 3:30:00 PM Patient Name: Sergio Martini Visit Number: [id number] Discharge Date: 10-04-16 Dr. Guy Mendoza Please clarify if the patient has diabetes mellitus --"Diabetes type II, uncontrolled" is on the Discharge Summary. Patient is not on any diabetic medications. Clinical Indicators : Glucose: 10-01-16 = 309, 8-117 = 144, 8-2-17 = 155, 8-- 17 = 175. POC glucose 10-01-16 at 1659 = 262. 8-3-17 at 0658 = 47. 8-3-17 at 0659 = 61. 8 -3-17 at 0714 = 78. 8-3-17 at 0811 = 192. at 0921 = 192. at 1215 = 160. Treatment: No insulin or oral diabetes medication given during hospital stay or prescribed at discharge. No dietary consult. In order to capture the severity of Illness and necessary documentation specificity, please clarify: DM Type 1 DM Type 2 DM due to underlying condition, specify (e.g. Cushings syndrome) Drug/chemical induced DM (document the drug/chemical) Gestational DM Unable to Determine Other Condition Please document any body system complications or specific manifestations related to the diabetes: Diabetic Nephropathy Diabetic Autonomic Neuropathy Diabetic Amyotrophy Diabetic Peripheral Vascular Disease Proliferative diabetic retinopathy with macular edema Diabetic foot ulcers, specify location Ketoacidosis Hypoglycemia with or without coma Hyperglycemia Hyperosmolarity Coma/nonketotic hyperglycemic-hyperosmolar coma Other condition Please dictate an addendum to the Discharge Summary re: presence or absence of diabetes. If you have a question about this query, please contact Ade Barnett Money Room Teller at [phone] between 8am-5pm. FYI: Press F11 to launch patient chart. MTDD
--- NOTE | 2016-10-20 12:10 | DS ---
ADDENDUM TO DISCHARGE SUMMARY: DATE OF ADMISSION: 10/01/2016 DATE OF DISCHARGE: 10/04/2016 ADDENDUM TO FINAL DIAGNOSES: Diabetes mellitus 2, uncontrolled, diet controlled. DANNYD
== END 2016-10-04 17:22 | disposition home or self-care (01) | DRG 440 ==
LOC: EC 12:43 → 4MS4W 15:30
PROVIDERS: ADMIT Hospitalist; ATTEND Hospitalist
DX: K85.90 Acute pancreatitis without necrosis or infection, unspecified (principal); E11.65 Type 2 diabetes mellitus with hyperglycemia; I10 Essential (primary) hypertension; E66.9 Obesity, unspecified; J44.9 Chronic obstructive pulmonary disease, unspecified; G47.33 Obstructive sleep apnea (adult) (pediatric); K57.30 Diverticulosis of large intestine without perforation or abscess without bleeding; G89.4 Chronic pain syndrome; F41.9 Anxiety disorder, unspecified; F32.9 Major depressive disorder, single episode, unspecified; M54.5 Low back pain; F10.20 Alcohol dependence, uncomplicated; R06.2 Wheezing; F17.210 Nicotine dependence, cigarettes, uncomplicated; Z90.49 Acquired absence of other specified parts of digestive tract; Z86.14 Personal history of Methicillin resistant Staphylococcus aureus infection; Z87.19 Personal history of other diseases of the digestive system; Z79.899 Other long term (current) drug therapy; Z98.1 Arthrodesis status; Z88.8 Allergy status to other drugs, medicaments and biological substances; Z86.19 Personal history of other infectious and parasitic diseases; Z87.39 Personal history of other diseases of the musculoskeletal system and connective tissue; Z79.2 Long term (current) use of antibiotics; Z79.1 Long term (current) use of non-steroidal anti-inflammatories (NSAID); Z71.6 Tobacco abuse counseling; Z71.41 Alcohol abuse counseling and surveillance of alcoholic
CPT/HCPCS: 36415; 74177; 80048; 80053; 81003; 82150; 83605; 83690; 85025; 85610; 85730; 94640; 96361; 96374; 99285

== ENCOUNTER 2016-10-22 13:09 | Inpatient (IN) | payer MEDICARE, OTHER ==
[2016-10-22] MEDS ORDERED: SODIUM CHLORIDE 0.9% 1,000 ML IV STA ×2 (13:39)
[2016-10-22] MEDS ORDERED: SODIUM CHLORIDE 0.9% 500 ML IV STA (13:39)
[2016-10-22] MEDS ORDERED: MORPHINE SULFATE 4 MG/ML SYRINGE IVP STA ×2 (13:40→14:51)
--- NOTE | 2016-10-22 13:54 | ED ---
General Adult HPI - General Chief complaint: Shortness of Breath Stated complaint: SOB/Abd Pain Time Seen by Provider: 10/22/16 13:39 Source: patient, RN notes reviewed, old records reviewed Mode of arrival: wheelchair Limitations: no limitations - History of Present Illness Initial comments: This is a 51-year-old male to the ER for evaluation today. Patient presents here for evaluation regarding shortness of breath. Recent discharge regarding pancreatitis. She continues to call complaining of worsening epigastric pain with nausea vomiting. No fevers no cough congestion, occasional shortness of breath. Pain worse with a deep breath. - Related Data Home Medications Medication Instructions Recorded Confirmed Fenofibrate Nanocrystallized 145 mg PO DAILY 08/07/13 10/22/16 [Fenofibrate] Metoprolol Tartrate [Lopressor] 25 mg PO BID 08/07/13 10/22/16 Montelukast [Singulair] 10 mg PO HS 08/07/13 10/22/16 Pravastatin Sodium [Pravachol] 40 mg PO HS 08/07/13 10/22/16 QUEtiapine [SEROquel] 200 mg PO QAM 08/07/13 10/22/16 Doxepin HCl [SINEquan] 100 mg PO HS 02/05/14 10/22/16 Famotidine [Pepcid] 20 mg PO BID 06/11/14 10/22/16 Lubiprostone [Amitiza] 24 mcg PO BID@0900,1400 10/01/16 10/22/16 Meloxicam 7.5 mg PO BID 10/01/16 10/22/16 Ondansetron HCl [Zofran] 8 mg PO Q6H PRN 10/01/16 10/22/16 QUEtiapine FUMARATE [SEROquel] 100 mg PO DAILY@1400 10/01/16 10/22/16 QUEtiapine FUMARATE [SEROquel] 400 mg PO HS 10/01/16 10/22/16 Varenicline [Chantix] 0.5 mg PO BID 10/01/16 10/22/16 lamoTRIgine 200 mg PO BID 10/01/16 10/22/16 traZODone HCL 150 mg PO HS 10/01/16 10/22/16 Albuterol Inhaler [Ventolin Hfa 1 - 2 puff INHALATION RT-Q6H PRN 10/22/16 Inhaler] DULoxetine HCL [Cymbalta] 60 mg PO BID 10/22/16 10/22/16 Gabapentin [Neurontin] 100 mg PO TID 10/22/16 10/22/16 Melatonin 10 mg PO HS 10/22/16 10/22/16 Multivitamins, Thera [Multivitamin 1 tab PO DAILY 10/22/16 10/22/16 (formulary)] Naloxegol Oxalate [Movantik] 25 mg PO HS 10/22/16 10/22/16 amLODIPine [Norvasc] 5 mg PO DAILY 10/22/16 10/22/16 diphenhydrAMINE [Benadryl] 50 mg PO HS PRN 10/22/16 10/22/16 Previous Rx's Medication Instructions Recorded Doxycycline Hyclate 100 mg PO BID #60 tab 06/15/14 Allergies Allergy/AdvReac Type Severity Reaction Status Date / Time haloperidol [From Haldol] AdvReac Hallucinati Verified 10/22/16 14:39 ons haloperidol lactate AdvReac Hallucinati Verified 10/22/16 14:39 [From Haldol] ons Review of Systems ROS Statement: Those systems with pertinent positive or pertinent negative responses have been documented in the HPI. ROS Other: All systems not noted in ROS Statement are negative. Past Medical History Past Medical History: Diabetes Mellitus, Hypertension Additional Past Medical History / Comment(s): chronic back pain, sleep apnea, osteomyolitis, pancreatitis History of Any Multi-Drug Resistant Organisms: MRSA Date of last positivie culture/infection: 2008 MDRO Source:: back Past Surgical History: Back Surgery, Cholecystectomy, Tonsillectomy Additional Past Surgical History / Comment(s): spinal fusion at L4 and L5, pancreatic surgery Past Anesthesia/Blood Transfusion Reactions: No Reported Reaction Past Psychological History: Anxiety, Bipolar, Depression Smoking Status: Current every day smoker Past Alcohol Use History: None Reported Past Drug Use History: Marijuana, Opiates - Past Family History Mother Family Medical History: No Reported History Additional Family Medical History / Comment(s): Pt states mother had no health problems. Father Family Medical History: No Reported History Additional Family Medical History / Comment(s): Pt states father had no health problems. General Exam Limitations: no limitations General appearance: alert, in no apparent distress Head exam: Present: atraumatic, normocephalic, normal inspection Eye exam: Present: normal appearance, PERRL, EOMI. Absent: scleral icterus, conjunctival injection, periorbital swelling ENT exam: Present: normal exam, mucous membranes moist Neck exam: Present: normal inspection. Absent: tenderness, meningismus, lymphadenopathy Respiratory exam: Present: normal lung sounds bilaterally. Absent: respiratory distress, wheezes, rales, rhonchi, stridor Cardiovascular Exam: Present: regular rate, normal rhythm, normal heart sounds. Absent: systolic murmur, diastolic murmur, rubs, gallop, clicks GI/Abdominal exam: Present: soft, normal bowel sounds. Absent: distended, tenderness, guarding, rebound, rigid Extremities exam: Present: normal inspection, full ROM, normal capillary refill. Absent: tenderness, pedal edema, joint swelling, calf tenderness Back exam: Present: normal inspection Neurological exam: Present: alert, oriented X3, CN II-XII intact Psychiatric exam: Present: normal affect, normal mood Skin exam: Present: warm, dry, intact, normal color. Absent: rash Course Vital Signs 10/22/16 10/22/16 13:18 14:00 Temperature 97.2 F L Pulse Rate 105 H 102 H Respiratory 22 22 Rate Blood Pressure 105/54 102/68 O2 Sat by Pulse 94 L 94 L Oximetry - Reevaluation(s) Reevaluation #1: 10/22/16 14:53 Prior hospitalizations thoroughly reviewed Reevaluation #2: 10/22/16 14:53 Past control EKG Findings - EKG Comments: EKG Findings:: EKG shows sinus tachycardia rate 108, ID 156, QRS 110, QTC 45 Medical Decision Making - Medical Decision Making Female here for evaluation of epigastric pain chest pain. Patient with positive nausea no vomiting no fever, congestion, will admit for acute on chronic pancreatitis - Lab Data Result diagrams: 10/22/16 13:53 10/22/16 13:53 Lab Results 10/22/16 10/22/16 10/22/16 Range/Units 13:53 13:53 13:53 WBC 14.6 H (3.8-10.6) k/uL RBC 4.74 (4.30-5.90) m/uL Hgb 14.4 (13.0-17.5) gm/dL Hct 44.1 (39.0-53.0) % MCV 93.0 (80.0-100.0) fL MCH 30.4 (25.0-35.0) pg MCHC 32.7 (31.0-37.0) g/dL RDW 13.8 (11.5-15.5) % Plt Count 277 (150-450) k/uL Neutrophils % 83 % Lymphocytes % 11 % Monocytes % 3 % Eosinophils % 2 % Basophils % 0 % Neutrophils # 12.1 H (1.3-7.7) k/uL Lymphocytes # 1.7 (1.0-4.8) k/uL Monocytes # 0.5 (0-1.0) k/uL Eosinophils # 0.2 (0-0.7) k/uL Basophils # 0.1 (0-0.2) k/uL PT (9.0-12.0) sec INR (<1.2) APTT (22.0-30.0) sec D-Dimer (<0.60) mg/L FEU Sodium 135 L (137-145) mmol/L Potassium 4.4 (3.5-5.1) mmol/L Chloride 101 (98-107) mmol/L Carbon Dioxide 22 (22-30) mmol/L Anion Gap 12 mmol/L BUN 14 (9-20) mg/dL Creatinine 1.28 H (0.66-1.25) mg/dL Est GFR (MDRD) Af Amer >60 (>60 ml/min/1.73 sqM) Est GFR (MDRD) Non-Af 59 (>60 ml/min/1.73 sqM) Glucose 206 H (74-99) mg/dL Calcium 9.8 (8.4-10.2) mg/dL Magnesium 1.4 L (1.6-2.3) mg/dL Total Bilirubin 0.5 (0.2-1.3) mg/dL AST 26 (17-59) U/L ALT 27 (21-72) U/L Alkaline Phosphatase 53 (38-126) U/L Total Creatine Kinase 436 H (55-170) U/L NT-Pro-B Natriuret Pep pg/mL Total Protein 7.0 (6.3-8.2) g/dL Albumin 4.2 (3.5-5.0) g/dL Lipase 1972 H (23-300) U/L 10/22/16 10/22/16 Range/Units 13:53 13:53 WBC (3.8-10.6) k/uL RBC (4.30-5.90) m/uL Hgb (13.0-17.5) gm/dL Hct (39.0-53.0) % MCV (80.0-100.0) fL MCH (25.0-35.0) pg MCHC (31.0-37.0) g/dL RDW (11.5-15.5) % Plt Count (150-450) k/uL Neutrophils % % Lymphocytes % % Monocytes % % Eosinophils % % Basophils % % Neutrophils # (1.3-7.7) k/uL Lymphocytes # (1.0-4.8) k/uL Monocytes # (0-1.0) k/uL Eosinophils # (0-0.7) k/uL Basophils # (0-0.2) k/uL PT 11.0 (9.0-12.0) sec INR 1.1 (<1.2) APTT 26.3 (22.0-30.0) sec D-Dimer 1.06 H (<0.60) mg/L FEU Sodium (137-145) mmol/L Potassium (3.5-5.1) mmol/L Chloride (98-107) mmol/L Carbon Dioxide (22-30) mmol/L Anion Gap mmol/L BUN (9-20) mg/dL Creatinine (0.66-1.25) mg/dL Est GFR (MDRD) Af Amer (>60 ml/min/1.73 sqM) Est GFR (MDRD) Non-Af (>60 ml/min/1.73 sqM) Glucose (74-99) mg/dL Calcium (8.4-10.2) mg/dL Magnesium (1.6-2.3) mg/dL Total Bilirubin (0.2-1.3) mg/dL AST (17-59) U/L ALT (21-72) U/L Alkaline Phosphatase (38-126) U/L Total Creatine Kinase (55-170) U/L NT-Pro-B Natriuret Pep 98 pg/mL Total Protein (6.3-8.2) g/dL Albumin (3.5-5.0) g/dL Lipase (23-300) U/L - Radiology Data Radiology results: report reviewed (Chest x-ray is negative for acute disease), image reviewed Disposition Clinical Impression: Pancreatitis, Acute pancreatitis Disposition: ADMITTED IP TO THIS HOSP Condition: Fair Referrals: Jordon Wood MD [Primary Care Provider] - 1-2 days
[2016-10-22 14:01] LABS: Basophils # (A) 0.1 k/uL (0-0.2); Basophils % (A) 0 %; CH 31.7; CHCM 34.2; Eosinophils # (A) 0.2 k/uL (0-0.7); Eosinophils % (A) 2 %; HCT 44.1 % (39.0-53.0); HDW 2.32; HGB 14.4 gm/dL (13.0-17.5); Luc # (Auto) 0.09; Luc % (Auto) 1; Lymphocytes # (A) 1.7 k/uL (1.0-4.8); Lymphocytes % (A) 11 %; MCH 30.4 pg (25.0-35.0); MCHC 32.7 g/dL (31.0-37.0); Mean Platelet Volume 7.3; Monocytes # (A) 0.5 k/uL (0-1.0); Monocytes % (A) 3 %; Neutrophils # (A) 12.1 k/uL (1.3-7.7); Neutrophils % (A) 83 %; RBC 4.74 m/uL (4.30-5.90); RDW 13.8 % (11.5-15.5); WBC 14.6 k/uL (3.8-10.6); WBC (Perox) 14.05
[2016-10-22 14:18] LABS: INR 1.1 (<1.2); Partial Thromboplastin Time 26.3 sec (22.0-30.0)
[2016-10-22 14:19] LABS: ALT 27 U/L (21-72); AST 26 U/L (17-59); Alkaline Phosphatase 53 U/L (38-126); Anion Gap 12 mmol/L; Blood Urea Nitrogen 14 mg/dL (9-20); Calcium 9.8 mg/dL (8.4-10.2); Carbon Dioxide 22 mmol/L (22-30); Chloride 101 mmol/L (98-107); Glucose 206 mg/dL (74-99); Magnesium 1.4 mg/dL (1.6-2.3); Non-African American GFR(MDRD) 59 (>60 ml/min/1.73 sqM); Potassium 4.4 mmol/L (3.5-5.1); Sodium 135 mmol/L (137-145); Total Bilirubin 0.5 mg/dL (0.2-1.3)
--- NOTE | 2016-10-22 14:24 | XR ---
EXAMINATION TYPE: XR chest 2V DATE OF EXAM: 10/22/2016 COMPARISON: 07/11/2014 TECHNIQUE: PA and lateral views submitted. HISTORY: Chest pain FINDINGS: Elevated left hemidiaphragm with left lower lobe subsegmental consolidation and small effusion. Media stinum is somewhat prominent but may be related to lordotic technique. No pneumothorax. No overt fail ure. Heart size within normal limits. IMPRESSION: 1. Left basilar infiltrate and small effusion with elevated hemidiaphragm.
[2016-10-22 14:40] LABS: Creatine Kinase 436 U/L (55-170)
[2016-10-22 14:50] LABS: Troponin I <0.012 ng/mL (0.000-0.034)
[2016-10-22] MEDS ORDERED: SODIUM CHLORIDE 0.9% 1,000 ML IV ONE (14:51)
[2016-10-22] MEDS ORDERED: RX INFO: IV CONTRAST WAS GIVEN 1 EACH MISC MISCELLANE PRN (14:51)
[2016-10-22] MEDS ORDERED: ONDANSETRON 4 MG/2 ML VIAL IVP PRN (14:51)
[2016-10-22 15:01] LABS: Creatine Kinase MB 7.7 ng/mL (0.0-2.4)
--- NOTE | 2016-10-22 16:18 | CT ---
EXAMINATION TYPE: CT angio chest DATE OF EXAM: 10/22/2016 4:03 PM COMPARISON: NONE HISTORY: Patient complains of difficulty breathing. CT DLP: 599 mGycm Automated exposure control for dose reduction was used. CONTRAST: CTA scan of the thorax is performed with IV Contrast, patient injected with 80 mL of Visipaque 320, p ulmonary embolism protocol. . FINDINGS: LUNGS: Coarsened interstitial pattern noted seen with chronic interstitial pneumonitis or congestion. Subsegmental consolidation involving both lungs there is central basilar bronchiectasis. No pneumoth orax. Paraseptal emphysematous changes particularly involving the lung apices are noted. Calcified gr anuloma measuring 2 mm lateral margin right upper lobe. Subsegmental changes are seen bilaterally. MEDIASTINUM: There is a 1.5 cm area of adenopathy in the subcarinal region and short axis measurement of 2.1 cm in the right hilum. Additional adenopathy within the prevascular space and mediastinum not ed with the largest node measuring 1.1 cm in short axis. There is suboptimal enhancement of the secondary and distal branches of the pulmonary artery. No cent ral pulmonary embolism seen. Coronary artery calcification noted. OTHER: Gynecomastia noted bilaterally. There appears to be inflammatory change in the peripancreatic region near the posterior wall the stomach. This was reported on recent CT scan. Correlate for pancr eatitis. Chronic rib deformity suggests previous trauma. Curvature of the spine noted. IMPRESSION: 1. Limited exam due to suboptimal opacification of the secondary and distal branches. No central pulm onary embolism. 2. Bilateral areas of subsegmental atelectasis or infiltrate 3. Nonspecific mediastinal and right hilar adenopathy 4. Correlate for acute pancreatitis as demonstrated on a recent CT scan of the abdomen pelvis dated . Follow resolution to exclude other etiologies. 5. Coarsened interstitium in the mid and upper lung zones bilaterally. This can be seen with chronic interstitial lung disease or interstitial pneumonitis. Venous congestion less likely consideration gi fallon the lack of pleural fluid. Correlate clinically.
[2016-10-22] MEDS: MORPHINE SULFATE 4 MG/ML SYRINGE IVP PRN ×2 (18:34→22:46)
[2016-10-22] MEDS ORDERED: diphenhydrAMINE 50 MG CAP PO PRN (19:26)
[2016-10-22] MEDS ORDERED: HYDROmorphone 1 MG/ML 1 ML SYRINGE IVP STA (19:28)
[2016-10-22 20:17] LABS: Glucose,Whole Blood 104 mg/dL (75-99)
[2016-10-22] MEDS: DULoxetine HCL 60 MG CAPSULE.DR PO SCH (21:38)
[2016-10-22] MEDS: DOXEPIN 25 MG CAP PO SCH (21:38)
[2016-10-22] MEDS: DOXYCYCLINE 50 MG CAP PO SCH (21:38)
[2016-10-22] MEDS: FAMOTIDINE 20 MG TAB PO SCH (21:38)
[2016-10-22] MEDS: lamoTRIgine 100 MG TAB PO SCH (21:39)
[2016-10-22] MEDS: MELOXICAM 7.5 MG TAB PO SCH (21:39)
[2016-10-22] MEDS: METOPROLOL TARTRATE 25 MG TAB PO SCH (21:39)
[2016-10-22] MEDS: MONTELUKAST 10 MG TAB PO SCH (21:39)
[2016-10-22] MEDS: MELATONIN 5 MG TABLET PO SCH (21:39)
[2016-10-22] MEDS: VARENICLINE 0.5 MG TAB PO SCH (21:40)
[2016-10-22] MEDS: QUEtiapine 400 MG TAB PO SCH (21:40)
[2016-10-22] MEDS: traZODone HCL 50 MG TAB PO SCH (21:40)
[2016-10-22] MEDS: PRAVASTATIN SODIUM 40 MG TAB PO SCH (21:40)
[2016-10-22] MEDS: GABAPENTIN 100 MG CAP PO SCH (21:54)
[2016-10-23] MEDS: MORPHINE SULFATE 4 MG/ML SYRINGE IVP PRN ×5 (02:38→22:52)
[2016-10-23 06:00] LABS: Glucose,Whole Blood 85 mg/dL (75-99)
[2016-10-23 07:49] LABS: Glucose,Whole Blood 79 mg/dL (75-99)
[2016-10-23] MEDS: ENOXAPARIN 40 MG/0.4 ML SYRINGE SQ SCH (10:25)
[2016-10-23 11:55] LABS: Glucose,Whole Blood 78 mg/dL (75-99)
[2016-10-23] MEDS: IPRATROPIUM-ALBUTEROL 3 ML NEB INHALATION SCH ×3 (13:59→20:09)
[2016-10-23] MEDS: BUDESONIDE 1 MG/2 ML NEBU INHALATION SCH ×2 (13:59→20:08)
[2016-10-23 14:02] VITALS: RESP 16
[2016-10-23] MEDS: amLODIPine 5 MG TAB PO SCH (14:28)
[2016-10-23] MEDS: DOXYCYCLINE 50 MG CAP PO SCH ×2 (14:28→20:56)
[2016-10-23] MEDS: lamoTRIgine 100 MG TAB PO SCH ×2 (14:28→20:56)
[2016-10-23] MEDS: MELOXICAM 7.5 MG TAB PO SCH ×2 (14:28→20:56)
[2016-10-23] MEDS: DULoxetine HCL 60 MG CAPSULE.DR PO SCH ×2 (14:28→20:56)
[2016-10-23] MEDS: GABAPENTIN 100 MG CAP PO SCH ×3 (14:28→20:58)
[2016-10-23] MEDS: FAMOTIDINE 20 MG TAB PO SCH ×2 (14:28→20:56)
[2016-10-23] MEDS: FENOFIBRATE 160 MG TAB PO SCH (14:28)
[2016-10-23] MEDS: MULTIVITAMINS, THERA 1 EACH TAB PO SCH (14:29)
[2016-10-23] MEDS: METOPROLOL TARTRATE 25 MG TAB PO SCH ×2 (14:29→20:57)
[2016-10-23] MEDS: VARENICLINE 0.5 MG TAB PO SCH ×2 (14:30→20:58)
[2016-10-23] MEDS: QUEtiapine 200 MG TAB PO SCH ×2 (14:30→18:07)
[2016-10-23] MEDS: NICOTINE 21MG/24HR PATCH TRANSDERM SCH (14:52)
[2016-10-23] MEDS: methylPREDNISolone SOD SUCCI 40 MG/ML 1 ML VIAL IV SCH ×2 (14:53→18:08)
[2016-10-23 17:24] LABS: Glucose,Whole Blood 81 mg/dL (75-99)
[2016-10-23 20:25] LABS: Glucose,Whole Blood 263 mg/dL (75-99)
[2016-10-23] MEDS: DOXEPIN 25 MG CAP PO SCH (20:56)
[2016-10-23] MEDS: MELATONIN 5 MG TABLET PO SCH (20:56)
[2016-10-23] MEDS: PRAVASTATIN SODIUM 40 MG TAB PO SCH (20:57)
[2016-10-23] MEDS: QUEtiapine 400 MG TAB PO SCH (20:57)
[2016-10-23] MEDS: MONTELUKAST 10 MG TAB PO SCH (20:57)
[2016-10-23] MEDS: traZODone HCL 50 MG TAB PO SCH (20:58)
[2016-10-23 21:26] LABS: Glucose,Whole Blood 240 mg/dL (75-99)
--- NOTE | 2016-10-23 22:08 | HP ---
DATE OF ADMISSION: 10/22/2016 PRESENTING COMPLAINT: Abdominal pain, shortness of breath. HISTORY OF PRESENTING COMPLAINT: This is a gentleman known to me from prior admissions with a rather extensive medical history. He follows with Dr. Wood. The patient's chronic stable medical conditions include diabetes mellitus, type 2, hypertension, anxiety, depression, sleep apnea; uses a CPAP machine. He also has chronic pain. He also has a history of discitis and osteomyelitis of the spine, for which he is on doxycycline. The patient was in the hospital in September of this year with acute pancreatitis. Patient's last alcoholic drink was about 3 years ago. He continues to smoke. Patient presents with 2 days of increasing abdominal pain, some nausea. Denies any fever. No diarrhea. The patient at the same time was also rather short of breath, wheezing , with cough with some clear sputum. Very short of breath at rest. Admitted from the ER. Also found to have acute pancreatitis. REVIEW OF SYSTEMS: CONSTITUTIONAL: Tired. HEENT: None. RESPIRATORY: As above. CARDIOVASCULAR: None. GASTROINTESTINAL: As above. GENITOURINARY: None. MUSCULOSKELETAL: Chronic low back pain. DERMATOLOGICAL: None. HEMATOLOGICAL: None. LYMPHATICS: None. PSYCHIATRY: Anxiety. NEUROLOGICAL: None. PAST MEDICAL HISTORY: 1. Diabetes mellitus, type 2. 2. Essential hypertension. 3. Chronic pain syndrome. 4. Obstructive sleep apnea; uses CPAP. 5. Anxiety. 6. Depression. 7. Discitis and osteomyelitis of the spine. 8. Pancreatitis. PAST SURGICAL HISTORY: 1. Back surgery. 2. Cholecystectomy. 3. Tonsillectomy. 4. Spinal fusion, L4-L5. 5. Pancreatic surgery. PAST PSYCHIATRIC HISTORY: 1. Anxiety. 2. Bipolar. 3. Depression. SOCIAL HISTORY: Patient has been smoking a pack a day close to 35 years. Last alcoholic drink was 2 to 3 years ago. Did opiates and marijuana in the past. Lives with a roommate. FAMILY HISTORY: Reviewed; noncontributory to presentation. HOME MEDICATIONS: 1. Trazodone 150 mg p.o. at bedtime. 2. Lamictal 200 mg p.o. b.i.d. 3. Benadryl 50 mg p.o. at bedtime p.r.n. 4. Norvasc 5 mg p.o. daily. 5. Chantix 0.5 mg p.o. b.i.d. 6. Seroquel 100 mg at 2 p.m. and 400 mg at night. 7. Seroquel 200 mg in the morning. 8. Pravachol 40 mg at bedtime. 9. Zofran 8 mg q.6 p.r.n. 10. Movantik 25 mg p.o. at bedtime. 11. Multivitamin 1 tablet p.o. daily. 12. Singulair 10 mg at bedtime. 13. Lopressor 25 mg p.o. b.i.d. 14. Meloxicam 7.5 mg p.o. b.i.d. 15. Melatonin 10 mg p.o. at bedtime. 16. Amitiza 24 mcg p.o. b.i.d. 17. Neurontin 100 mg p.o. t.i.d. 18. TriCor 145 mg p.o. daily. 19. Pepcid 20 mg p.o. b.i.d. 20. Doxycycline 100 mg p.o. b.i.d. 21. Doxepin 100 mg p.o. at bedtime. 22. Cymbalta 60 mg p.o. b.i.d. 23. Ventolin HFA 1 to 2 puffs q.6 p.r.n. ALLERGIES: HALDOL. On examination, vital signs on presentation were temperature 97.2, pulse 105, respiration 22, blood pressure 105/54, pulse ox 94% on room air. GENERAL APPEARANCE: Well built; BMI of 35.1. Lying in bed. Tired-appearing. Short of breath. EYES: Pupils equal. Conjunctivae normal. HEENT: Oral cavity normal. NECK: JVD not raised. Mass not palpable. RESPIRATORY: Effort increased. LUNGS: Diminished breath sounds. Prolonged expiration and wheezing. Some dry cough. CARDIOVASCULAR: First and second sounds normal. No edema. ABDOMEN: Epigastric tenderness. No guarding or rigidity. Liver and spleen not palpable. LYMPHATICS: No lymph node palpable in neck or axillae. PSYCHIATRY: Alert and oriented x3. Mood and affect slightly anxious-appearing. NEUROLOGICAL: Pupils equal. Cranial nerves grossly intact. Power and sensation grossly intact. INVESTIGATIONS: White count 14.6, hemoglobin 14.4. Potassium 4.4. BUN 14, creatinine 1.28. Lipase 1972. ASSESSMENT: 1. Acute pancreatitis in a patient who has had prior episodes with a prior history of alcoholism. 2. Acute chronic obstructive pulmonary disease exacerbation in a smoker. 3. Chronic nicotine dependence. Patient is a smoker. 4. Diabetes mellitus, type 2. 5. Essential hypertension. 6. Obstructive sleep apnea; uses a CPAP machine. 7. Anxiety, depression not otherwise specified. 8. Chronic colonic diverticulosis. 9. History of spinal osteomyelitis and discitis, on doxycycline. 10. Obesity; BMI 37.4. PLAN: The patient on admission was made NPO. Home medications will be resumed. Will be given nebulized bronchodilators, Solu-Medrol, IV pain medications, Lovenox for DVT prophylaxis. Patient is counseled against smoking. Rather tired right now. MTDD
[2016-10-24] MEDS: methylPREDNISolone SOD SUCCI 40 MG/ML 1 ML VIAL IV SCH ×3 (00:32→15:43)
[2016-10-24] MEDS: MORPHINE SULFATE 4 MG/ML SYRINGE IVP PRN ×5 (03:42→19:33)
[2016-10-24] MEDS: IPRATROPIUM-ALBUTEROL 3 ML NEB INHALATION SCH ×4 (06:58→20:52)
[2016-10-24] MEDS: BUDESONIDE 1 MG/2 ML NEBU INHALATION SCH ×2 (06:58→20:52)
[2016-10-24 07:21] LABS: Glucose,Whole Blood 207 mg/dL (75-99)
[2016-10-24] MEDS: amLODIPine 5 MG TAB PO SCH (08:06)
[2016-10-24] MEDS: NICOTINE 21MG/24HR PATCH TRANSDERM SCH (08:07)
[2016-10-24] MEDS: MULTIVITAMINS, THERA 1 EACH TAB PO SCH (08:07)
[2016-10-24] MEDS: METOPROLOL TARTRATE 25 MG TAB PO SCH ×2 (08:07→20:45)
[2016-10-24] MEDS: FAMOTIDINE 20 MG TAB PO SCH ×2 (08:07→20:43)
[2016-10-24] MEDS: MELOXICAM 7.5 MG TAB PO SCH ×2 (08:08→20:44)
[2016-10-24] MEDS: ENOXAPARIN 40 MG/0.4 ML SYRINGE SQ SCH (08:09)
[2016-10-24] MEDS: GABAPENTIN 100 MG CAP PO SCH ×3 (08:09→20:45)
[2016-10-24] MEDS: DOXYCYCLINE 50 MG CAP PO SCH ×2 (08:09→20:42)
[2016-10-24] MEDS: QUEtiapine 200 MG TAB PO SCH ×2 (08:10→15:43)
[2016-10-24] MEDS: DULoxetine HCL 60 MG CAPSULE.DR PO SCH ×2 (08:10→20:45)
[2016-10-24] MEDS: FENOFIBRATE 160 MG TAB PO SCH (08:11)
[2016-10-24] MEDS: lamoTRIgine 100 MG TAB PO SCH ×2 (08:12→20:43)
[2016-10-24] MEDS: VARENICLINE 0.5 MG TAB PO SCH ×2 (08:12→20:46)
[2016-10-24 08:39] LABS: Amylase 58 U/L (30-110)
[2016-10-24 11:42] LABS: Glucose,Whole Blood 281 mg/dL (75-99)
--- NOTE | 2016-10-24 17:01 | P.PN ---
<Bella Llamas - Last Filed: 10/24/16 16:33> Progress Note - Text DATE OF SERVICE: 10/24/2016 PRESENTING COMPLAINT: Abdominal pain shortness of breath INTERVAL HISTORY: 51-year-old male with 2 days of increasing abdominal pain some nausea. Lab values reveal acute pancreatitis with an elevated amylase and lipase. Patient also has shortness of breath wheezing with a cough and clear sputum. 10/24/2016: Patient lying in bed appears comfortable, however continues to take IV pain medication, would like to have his diet advanced. Discussion had with patient about pain meds mask symptoms and the necessity of backing off pain meds before we can advance diet. Patient verbalized understanding. Tolerating his clear liquid diet, no nausea but continues to have some pain, ambulatory in the room and [place], last BM prior to admission. REVIEW OF SYSTEMS: Done for constitutional ,cardiovascular, GI, pulmonary with relevant findings as above. CURRENT MEDICATIONS DuoNeb, Pulmicort, Norvasc, Benadryl, doxepin, doxycycline, Cymbalta, Lovenox, Lamictal, Neurontin, melatonin, Lopid, Solu-Medrol, PHYSICAL EXAM VITAL SIGNS: Temperature 96.8, pulse 82, respirations 16, blood pressure 118/71, oxygen saturation 95% on room air. GENERAL APPEARANCE: Lying in bed, not in distress. EYES: Pupils equal. Conjunctiva normal. NECK: JVD not raised. Mass not palpable. RESPIRATORY: Respiratory effort mildly increased. Lungs diminished to auscultation. CARDIOVASCULAR: First and second sounds normal. No edema. ABDOMEN: Soft. Liver and spleen not palpable. Tenderness to the left upper quadrant. No mass palpable. PSYCHIATRY: Alert and oriented x3. Mood and affect normal. INVESTIGATIONS: Lipase 199 amylase 58 Accu-Cheks noted ASSESSMENT: -Acute pancreatitis in a patient who has had prior episodes with prior history of alcoholism. -Acute chronic obstructive pulmonary disease exacerbation in a smoker. -Chronic nicotine dependence. Patient is a smoker. -Diabetes mellitus type 2. -Essential hypertension. -Obstructive sleep apnea, uses a CPAP machine. -Anxiety, depression not otherwise specified. -Chronic colonic diverticulosis. -History of spinal osteomyelitis and discitis on doxycycline. -Obesity body mass index 37.4 PLAN: Continue Solu-Medrol and will wean as appropriate. Reduce pain medications to determine how much pain patient is actually having. Pain decreased we'll advance diet. Discharge planning for the next 24-48 hours. Plan of care discussed with the patient at the bedside he is in agreement. We'll continue to follow closely. FIRESETTER statement: Patient was seen and examined by nurse practitioner Bella Llamas and all elements of the case discussed with attending Dr. Mendoza <Guy Mendoza - Last Filed: 10/24/16 21:17> Progress Note - Text Attending note. Date of service-10/24/2016 This patient was seen and examined by me . I reviewed the note of my nurse practitioner, Ms. Llamas. Discussed with her, additional findings as below. Abdominal pain is better. Did tolerate some liquid diet. Had a bowel movement. On examination: Lungs-decreased breath sound decreased wheezing, abdomen soft mild epigastric tenderness Investigations: Amylase and lipase normal, H B A1c 10.5 Assessment and plan: Acute pancreatitis with a prior history of alcoholism clinically and biochemically improving, acute COPD exacerbation improving Care was discussed with the patient. we'll advance to full liquids. And does final advanced to soft bland in the morning. Discussed with the patient will stop the IV pain medication and tried Tylenol 3
[2016-10-24 17:15] LABS: Glucose,Whole Blood 205 mg/dL (75-99)
[2016-10-24] MEDS: INSULIN LISPRO (humaLOG) 300 UNIT/3 ML VIAL SQ SCH ×2 (17:53→21:36)
[2016-10-24 18:11] LABS: Hemoglobin A1C 10.5 % (4.2-6.1)
[2016-10-24] MEDS ORDERED: QUEtiapine 100 MG TAB PO SCH (18:35)
[2016-10-24 19:59] LABS: Glucose,Whole Blood 299 mg/dL (75-99)
[2016-10-24] MEDS: DOXEPIN 25 MG CAP PO SCH (20:42)
[2016-10-24] MEDS: MELATONIN 5 MG TABLET PO SCH (20:42)
[2016-10-24] MEDS: traZODone HCL 50 MG TAB PO SCH (20:44)
[2016-10-24] MEDS: QUEtiapine 400 MG TAB PO SCH (20:46)
[2016-10-24] MEDS: PRAVASTATIN SODIUM 40 MG TAB PO SCH (20:46)
[2016-10-24] MEDS ORDERED: Acetaminophen-Codeine 300-30mg TAB PO PRN (21:13)
[2016-10-24] MEDS: MONTELUKAST 10 MG TAB PO SCH (21:35)
[2016-10-25] MEDS: MORPHINE SULFATE 4 MG/ML SYRINGE IVP PRN ×2 (02:24→09:11)
[2016-10-25 07:42] LABS: Glucose,Whole Blood 111 mg/dL (75-99)
[2016-10-25] MEDS: BUDESONIDE 1 MG/2 ML NEBU INHALATION SCH (07:44)
[2016-10-25] MEDS: IPRATROPIUM-ALBUTEROL 3 ML NEB INHALATION SCH ×2 (07:44→11:24)
[2016-10-25 08:31] VITALS: BP 106/69; TEMP 96.9
[2016-10-25 08:33] VITALS: BMI 35.1
[2016-10-25 08:33] LABS: Amylase <30 U/L (30-110); Anion Gap 10 mmol/L; Blood Urea Nitrogen 15 mg/dL (9-20); Calcium 9.3 mg/dL (8.4-10.2); Carbon Dioxide 24 mmol/L (22-30); Chloride 107 mmol/L (98-107); Glucose 121 mg/dL (74-99); Non-African American GFR(MDRD) >60 (>60 ml/min/1.73 sqM); Potassium 4.1 mmol/L (3.5-5.1); Sodium 141 mmol/L (137-145)
[2016-10-25] MEDS: INSULIN LISPRO (humaLOG) 300 UNIT/3 ML VIAL SQ SCH ×2 (08:36→13:12)
[2016-10-25] MEDS: NON-FORMULARY DRUG (Lubiprostone [Amitiza] 24 MCG) PO SCH ×2 (08:42→08:43)
[2016-10-25] MEDS: NON-FORMULARY DRUG (Naloxegol Oxalate [Movantik] 25 MG) PO SCH ×2 (08:42→08:43)
[2016-10-25] MEDS: FENOFIBRATE 160 MG TAB PO SCH (08:49)
[2016-10-25] MEDS: lamoTRIgine 100 MG TAB PO SCH (08:50)
[2016-10-25] MEDS: METOPROLOL TARTRATE 25 MG TAB PO SCH (08:50)
[2016-10-25] MEDS: MULTIVITAMINS, THERA 1 EACH TAB PO SCH (08:50)
[2016-10-25] MEDS: DULoxetine HCL 60 MG CAPSULE.DR PO SCH (08:50)
[2016-10-25] MEDS: FAMOTIDINE 20 MG TAB PO SCH (08:50)
[2016-10-25] MEDS: DOXYCYCLINE 50 MG CAP PO SCH (08:50)
[2016-10-25] MEDS: amLODIPine 5 MG TAB PO SCH (08:51)
[2016-10-25] MEDS: GABAPENTIN 100 MG CAP PO SCH (08:51)
[2016-10-25] MEDS: ENOXAPARIN 40 MG/0.4 ML SYRINGE SQ SCH (08:51)
[2016-10-25] MEDS: NICOTINE 21MG/24HR PATCH TRANSDERM SCH (08:52)
[2016-10-25] MEDS: VARENICLINE 0.5 MG TAB PO SCH (08:52)
[2016-10-25] MEDS: QUEtiapine 200 MG TAB PO SCH (08:52)
[2016-10-25] MEDS ORDERED: predniSONE 20 MG TAB PO SCH (09:00)
[2016-10-25] MEDS ORDERED: INSULIN LISPRO (humaLOG) 300 UNIT/3 ML VIAL SQ PRN (09:56)
[2016-10-25] MEDS ORDERED: INSPUCOR MISCELLANE PRN ×2 (09:56→11:00)
[2016-10-25] MEDS ORDERED: INSULIN PUMP BASAL RATES 1 EACH MISC MISCELLANE PRN (09:56)
[2016-10-25] MEDS ORDERED: INSULIN PUMP TARGET GLUCOSE 1 EACH MISC MISCELLANE PRN (10:58)
[2016-10-25] MEDS ORDERED: INSULIN PUMP ACTIVE INSULIN 1 EACH MISC MISCELLANE PRN (10:58)
--- NOTE | 2016-10-25 11:29 | P.DS ---
<JyotimissaelBella Soo - Last Filed: 10/25/16 11:28> Providers Date of admission: 10/22/16 14:51 Expected date of discharge: 10/25/16 Attending physician: Guy Mendoza Primary care physician: Jordon Wood Patient Condition at Discharge: Fair Plan - Discharge Summary New Discharge Prescriptions: New Acetaminophen-Codeine 300-30mg [Tylenol w/codeine #3] 1 each PO Q6HR PRN #30 tab PRN Reason: Pain INSULIN LISPRO (humaLOG) [humaLOG (formulary)] 1 / SQ DAILY PRN vial PRN Reason: Insulin Pump Replacement Ipratropium [place] [Atrovent Hfa] 2 puff INHALATION QID #1 inhaler Nicotine 21Mg/24Hr Patch [Habitrol] 1 patch TRANSDERM DAILY #14 patch Nicotine Polacrilex [Nicotine Gum] 4 mg BUCCAL Q4-6H #60 piece gum predniSONE See Taper PO DIRECTED #10 tab Continue QUEtiapine [SEROquel] 200 mg PO QAM Fenofibrate Nanocrystallized [Fenofibrate] 145 mg PO DAILY Pravastatin Sodium [Pravachol] 40 mg PO HS Montelukast [Singulair] 10 mg PO HS Metoprolol Tartrate [Lopressor] 25 mg PO BID Doxepin HCl [SINEquan] 100 mg PO HS Famotidine [Pepcid] 20 mg PO BID Doxycycline Hyclate 100 mg PO BID #60 tab QUEtiapine FUMARATE [SEROquel] 400 mg PO HS QUEtiapine FUMARATE [SEROquel] 100 mg PO DAILY@1400 traZODone HCL 150 mg PO HS lamoTRIgine 200 mg PO BID Varenicline [Chantix] 0.5 mg PO BID Lubiprostone [Amitiza] 24 mcg PO BID@0900,1400 Ondansetron HCl [Zofran] 8 mg PO Q6H PRN PRN Reason: Nausea Albuterol Inhaler [Ventolin Hfa Inhaler] 1 - 2 puff INHALATION RT-Q6H PRN PRN Reason: Shortness Of Breath amLODIPine [Norvasc] 5 mg PO DAILY Naloxegol Oxalate [Movantik] 25 mg PO HS Multivitamins, Thera [Multivitamin (formulary)] 1 tab PO DAILY Gabapentin [Neurontin] 100 mg PO TID DULoxetine HCL [Cymbalta] 60 mg PO BID Discontinued Meloxicam 7.5 mg PO BID Melatonin 10 mg PO HS diphenhydrAMINE [Benadryl] 50 mg PO HS PRN PRN Reason: Insomnia Discharge Medication List Fenofibrate Nanocrystallized [Fenofibrate] 145 mg PO DAILY 08/07/13 [History] Metoprolol Tartrate [Lopressor] 25 mg PO BID 08/07/13 [History] Montelukast [Singulair] 10 mg PO HS 08/07/13 [History] Pravastatin Sodium [Pravachol] 40 mg PO HS 08/07/13 [History] QUEtiapine [SEROquel] 200 mg PO QAM 08/07/13 [History] Doxepin HCl [SINEquan] 100 mg PO HS 02/05/14 [History] Famotidine [Pepcid] 20 mg PO BID 06/11/14 [History] Doxycycline Hyclate 100 mg PO BID #60 tab 06/15/14 [Rx] Lubiprostone [Amitiza] 24 mcg PO BID@0900,1400 10/01/16 [History] Ondansetron HCl [Zofran] 8 mg PO Q6H PRN 10/01/16 [History] QUEtiapine FUMARATE [SEROquel] 100 mg PO DAILY@1400 10/01/16 [History] QUEtiapine FUMARATE [SEROquel] 400 mg PO HS 10/01/16 [History] Varenicline [Chantix] 0.5 mg PO BID 10/01/16 [History] lamoTRIgine 200 mg PO BID 10/01/16 [History] traZODone HCL 150 mg PO HS 10/01/16 [History] Albuterol Inhaler [Ventolin Hfa Inhaler] 1 - 2 puff INHALATION RT-Q6H PRN [History] DULoxetine HCL [Cymbalta] 60 mg PO BID 10/22/16 [History] Gabapentin [Neurontin] 100 mg PO TID 10/22/16 [History] Multivitamins, Thera [Multivitamin (formulary)] 1 tab PO DAILY 10/22/16 [History ] Naloxegol Oxalate [Movantik] 25 mg PO HS 10/22/16 [History] amLODIPine [Norvasc] 5 mg PO DAILY 10/22/16 [History] Acetaminophen-Codeine 300-30mg [Tylenol w/codeine #3] 1 each PO Q6HR PRN #30 tab 10/25/16 [Rx] INSULIN LISPRO (humaLOG) [humaLOG (formulary)] 1 / SQ DAILY PRN vial 10/25/16 [ Rx] Ipratropium [place] [Atrovent Hfa] 2 puff INHALATION QID #1 inhaler 10/25/16 [Rx ] Nicotine 21Mg/24Hr Patch [Habitrol] 1 patch TRANSDERM DAILY #14 patch 10/25/16 [ Rx] Nicotine Polacrilex [Nicotine Gum] 4 mg BUCCAL Q4-6H #60 piece gum 10/25/16 [Rx] predniSONE See Taper PO DIRECTED #10 tab 10/25/16 [Rx] Follow up Appointment(s)/Referral(s): Jordon Wood MD [Primary Care Provider] - 3 Days Activity/Diet/Wound Care/Special Instructions: diabetic/soft/low fat <Guy Mendoza - Last Filed: 10/25/16 11:32> Hospital Course: Attending note. Date of service-10/25/2016 This patient was seen and examined by me . Discussed the patient with my nurse practitioner Ms. Llamas. patient doing better. Tolerating regular diet. Breathing better. Abdominal pain well controlled. On examination: lungs-decreased breath soundswheezing., Abdomen-soft nontender Investigations: amylase lipase normal Assessment and plan: acute COPD exacerbation is smoker improved Acute recurrent pancreatitis and X alcoholic improved. Patient counseled against smoking. Home medications discussed.
[2016-10-25 11:33] VITALS: PULSE 81
[2016-10-25 12:13] LABS: Glucose,Whole Blood 273 mg/dL (75-99)
[2016-10-25] MEDS ORDERED: INSULIN PUMP MEAL BOLUS 1 UNIT MISC MISCELLANE SCH ×2 (12:30)
--- NOTE | 2016-10-26 16:40 | P.DS ---
Providers Date of admission: 10/22/16 14:51 Expected date of discharge: 10/25/16 Attending physician: Guy Mendoza Primary care physician: Jordon Wood Hospital Course: Final diagnoses: -Acute on recurrent pancreatitis in a patient who has had prior episodes with prior history of alcoholism. -Acute chronic obstructive pulmonary disease exacerbation in a smoker. -Chronic nicotine dependence. Patient is a smoker. -Diabetes mellitus type 2. -Essential hypertension. -Obstructive sleep apnea, uses a CPAP machine. -Anxiety, depression not otherwise specified. -Chronic colonic diverticulosis. -History of spinal osteomyelitis and discitis on doxycycline. -Obesity body mass index 37.4 Hospital course: Patient presented with acute pancreatitis with a prior history of alcoholism doing much better the time of discharge. Tolerating a diet. Abdominal pain had gone. Having bowel movements. Also had acute COPD exacerbation counseled against smoking. Breathing much improved. Care was discussed with the patient. On examination: Lungs decreased breath sounds, no wheezing. Abdomen-soft nontender Patient Condition at Discharge: Fair Plan - Discharge Summary New Discharge Prescriptions: New Acetaminophen-Codeine 300-30mg [Tylenol w/codeine #3] 1 each PO Q6HR PRN #30 tab PRN Reason: Pain INSULIN LISPRO (humaLOG) [humaLOG (formulary)] 1 / SQ DAILY PRN vial PRN Reason: Insulin Pump Replacement Ipratropium [place] [Atrovent Hfa] 2 puff INHALATION QID #1 inhaler Nicotine 21Mg/24Hr Patch [Habitrol] 1 patch TRANSDERM DAILY #14 patch Nicotine Polacrilex [Nicotine Gum] 4 mg BUCCAL Q4-6H #60 piece gum predniSONE See Taper PO DIRECTED #10 tab Continue QUEtiapine [SEROquel] 200 mg PO QAM Fenofibrate Nanocrystallized [Fenofibrate] 145 mg PO DAILY Pravastatin Sodium [Pravachol] 40 mg PO HS Montelukast [Singulair] 10 mg PO HS Metoprolol Tartrate [Lopressor] 25 mg PO BID Doxepin HCl [SINEquan] 100 mg PO HS Famotidine [Pepcid] 20 mg PO BID Doxycycline Hyclate 100 mg PO BID #60 tab QUEtiapine FUMARATE [SEROquel] 400 mg PO HS QUEtiapine FUMARATE [SEROquel] 100 mg PO DAILY@1400 traZODone HCL 150 mg PO HS lamoTRIgine 200 mg PO BID Varenicline [Chantix] 0.5 mg PO BID Lubiprostone [Amitiza] 24 mcg PO BID@0900,1400 Ondansetron HCl [Zofran] 8 mg PO Q6H PRN PRN Reason: Nausea Albuterol Inhaler [Ventolin Hfa Inhaler] 1 - 2 puff INHALATION RT-Q6H PRN PRN Reason: Shortness Of Breath amLODIPine [Norvasc] 5 mg PO DAILY Naloxegol Oxalate [Movantik] 25 mg PO HS Multivitamins, Thera [Multivitamin (formulary)] 1 tab PO DAILY Gabapentin [Neurontin] 100 mg PO TID DULoxetine HCL [Cymbalta] 60 mg PO BID Discontinued Meloxicam 7.5 mg PO BID Melatonin 10 mg PO HS diphenhydrAMINE [Benadryl] 50 mg PO HS PRN PRN Reason: Insomnia Discharge Medication List Fenofibrate Nanocrystallized [Fenofibrate] 145 mg PO DAILY 08/07/13 [History] Metoprolol Tartrate [Lopressor] 25 mg PO BID 08/07/13 [History] Montelukast [Singulair] 10 mg PO HS 08/07/13 [History] Pravastatin Sodium [Pravachol] 40 mg PO HS 08/07/13 [History] QUEtiapine [SEROquel] 200 mg PO QAM 08/07/13 [History] Doxepin HCl [SINEquan] 100 mg PO HS 02/05/14 [History] Famotidine [Pepcid] 20 mg PO BID 06/11/14 [History] Doxycycline Hyclate 100 mg PO BID #60 tab 06/15/14 [Rx] Lubiprostone [Amitiza] 24 mcg PO BID@0900,1400 10/01/16 [History] Ondansetron HCl [Zofran] 8 mg PO Q6H PRN 10/01/16 [History] QUEtiapine FUMARATE [SEROquel] 100 mg PO DAILY@1400 10/01/16 [History] QUEtiapine FUMARATE [SEROquel] 400 mg PO HS 10/01/16 [History] Varenicline [Chantix] 0.5 mg PO BID 10/01/16 [History] lamoTRIgine 200 mg PO BID 10/01/16 [History] traZODone HCL 150 mg PO HS 10/01/16 [History] Albuterol Inhaler [Ventolin Hfa Inhaler] 1 - 2 puff INHALATION RT-Q6H PRN [History] DULoxetine HCL [Cymbalta] 60 mg PO BID 10/22/16 [History] Gabapentin [Neurontin] 100 mg PO TID 10/22/16 [History] Multivitamins, Thera [Multivitamin (formulary)] 1 tab PO DAILY 10/22/16 [History ] Naloxegol Oxalate [Movantik] 25 mg PO HS 10/22/16 [History] amLODIPine [Norvasc] 5 mg PO DAILY 10/22/16 [History] Acetaminophen-Codeine 300-30mg [Tylenol w/codeine #3] 1 each PO Q6HR PRN #30 tab 10/25/16 [Rx] INSULIN LISPRO (humaLOG) [humaLOG (formulary)] 1 / SQ DAILY PRN vial 10/25/16 [ Rx] Ipratropium [place] [Atrovent Hfa] 2 puff INHALATION QID #1 inhaler 10/25/16 [Rx ] Nicotine 21Mg/24Hr Patch [Habitrol] 1 patch TRANSDERM DAILY #14 patch 10/25/16 [ Rx] Nicotine Polacrilex [Nicotine Gum] 4 mg BUCCAL Q4-6H #60 piece gum 10/25/16 [Rx] predniSONE See Taper PO DIRECTED #10 tab 10/25/16 [Rx] Follow up Appointment(s)/Referral(s): Jordon Wood MD [Primary Care Provider] - 10/29/16 12:45 pm Patient Instructions/Handouts: Acetaminophen/Codeine (By mouth), Ipratropium ( By breathing), Prednisone (By mouth), Nicotine (Into the mouth), Nicotine ( Absorbed through the skin), How to Stop Smoking (DC), Pancreatitis (DC) Activity/Diet/Wound Care/Special Instructions: PREDNISONE DOSING TAPER INSTRUCTIONS take 40 mg x 1 day 30 mg x 1 day 20 mg x 1 day 10 mg x 1 day THEN STOP diabetic/soft/low fat Discharge Disposition: HOME SELF-CARE
== END 2016-10-25 15:00 | disposition home or self-care (01) | DRG 439 ==
LOC: EC 13:09 → 5MS5E 14:51
PROVIDERS: ADMIT Hospitalist; ATTEND Hospitalist
DX: K85.90 Acute pancreatitis without necrosis or infection, unspecified (principal); J44.1 Chronic obstructive pulmonary disease with (acute) exacerbation; I10 Essential (primary) hypertension; M86.9 Osteomyelitis, unspecified; F10.21 Alcohol dependence, in remission; K86.1 Other chronic pancreatitis; M46.40 Discitis, unspecified, site unspecified; G47.33 Obstructive sleep apnea (adult) (pediatric); E11.9 Type 2 diabetes mellitus without complications; F17.200 Nicotine dependence, unspecified, uncomplicated; G89.4 Chronic pain syndrome; Z68.37 Body mass index [BMI] 37.0-37.9, adult; F41.9 Anxiety disorder, unspecified; F32.9 Major depressive disorder, single episode, unspecified; K57.30 Diverticulosis of large intestine without perforation or abscess without bleeding; E66.9 Obesity, unspecified; Z79.899 Other long term (current) drug therapy; Z79.1 Long term (current) use of non-steroidal anti-inflammatories (NSAID); Z79.2 Long term (current) use of antibiotics; Z71.3 Dietary counseling and surveillance; Z98.1 Arthrodesis status; Z86.14 Personal history of Methicillin resistant Staphylococcus aureus infection; Z90.49 Acquired absence of other specified parts of digestive tract
CPT/HCPCS: 36415; 71020; 71275; 80048; 80053; 82150; 82550; 82553; 83036; 83690; 83735; 83880; 84484; 85025; 85379; 85610; 85730; 93005; 94640; 94760; 96361; 96374; 96376; 99285

== ENCOUNTER 2016-11-06 17:14 | Emergency (ER) | payer MEDICARE, OTHER ==
[2016-11-06] MEDS ORDERED: ONDANSETRON 4 MG/2 ML VIAL IVP STA (17:49)
[2016-11-06] MEDS ORDERED: HYDROmorphone 1 MG/ML 1 ML SYRINGE IVP STA (17:49)
[2016-11-06] MEDS ORDERED: SODIUM CHLORIDE 0.9% 1,000 ML IV STA (17:49)
[2016-11-06] MEDS ORDERED: PANTOPRAZOLE 40 MG/10 ML VIAL IVP STA (17:49)
[2016-11-06] MEDS ORDERED: IPRATROPIUM-ALBUTEROL 3 ML NEB INHALATION STA (17:50)
--- NOTE | 2016-11-06 17:57 | ED ---
Abdominal Pain HPI - General Chief Complaint: Abdominal Pain Stated Complaint: SOB Time Seen by Provider: 11/06/16 17:38 Source: patient Mode of arrival: wheelchair Limitations: no limitations - History of Present Illness Initial Comments: This 51-year-old white male presents with a complaint of some abdominal pain. He states that it is in the left upper abdomen. It is a severe sharp pain that started yesterday. He does have a history of pancreatitis and this would be his third time in the hospital over the last month. He is had some nausea but no vomiting diarrhea or constipation or urinary complaints. He denies any fevers. This is very similar to his previous pancreatitis episodes. No other complaints or modifying factors. He states that he has been able to eat but is still on a light diet. He denies drinking any alcohol for the last 10 years. He denies any nonsteroidal anti-inflammatory drug use. He does take Pepcid regularly. He denies any known history of peptic ulcer disease or gastritis. - Related Data Home Medications Medication Instructions Recorded Confirmed Fenofibrate Nanocrystallized 145 mg PO DAILY 08/07/13 11/06/16 [Fenofibrate] Metoprolol Tartrate [Lopressor] 25 mg PO BID 08/07/13 11/06/16 Montelukast [Singulair] 10 mg PO HS 08/07/13 11/06/16 Pravastatin Sodium [Pravachol] 40 mg PO HS 08/07/13 11/06/16 QUEtiapine [SEROquel] 200 mg PO QAM 08/07/13 11/06/16 Doxepin HCl [SINEquan] 100 mg PO HS 02/05/14 11/06/16 Famotidine [Pepcid] 20 mg PO BID 06/11/14 11/06/16 Lubiprostone [Amitiza] 24 mcg PO BID@0900,1400 10/01/16 11/06/16 Ondansetron HCl [Zofran] 8 mg PO Q6H PRN 10/01/16 11/06/16 QUEtiapine FUMARATE [SEROquel] 100 mg PO DAILY@1400 10/01/16 11/06/16 QUEtiapine FUMARATE [SEROquel] 400 mg PO HS 10/01/16 11/06/16 Varenicline [Chantix] 0.5 mg PO BID 10/01/16 11/06/16 lamoTRIgine 200 mg PO BID 10/01/16 11/06/16 traZODone HCL 150 mg PO HS 10/01/16 11/06/16 Albuterol Inhaler [Ventolin Hfa 1 - 2 puff INHALATION RT-Q6H PRN 10/22/16 Inhaler] DULoxetine HCL [Cymbalta] 60 mg PO BID 10/22/16 11/06/16 Gabapentin [Neurontin] 100 mg PO TID 10/22/16 11/06/16 Multivitamins, Thera [Multivitamin 1 tab PO DAILY 10/22/16 11/06/16 (formulary)] Naloxegol Oxalate [Movantik] 25 mg PO HS 10/22/16 11/06/16 amLODIPine [Norvasc] 5 mg PO DAILY 10/22/16 11/06/16 Acetaminophen-Codeine 300-30mg 1 tab PO Q6HR PRN 11/06/16 11/06/16 [Tylenol w/codeine #3] INSULIN LISPRO (humaLOG) [humaLOG 1 unit SQ DAILY PRN 11/06/16 11/06/16 (formulary)] Ipratropium [place] [Atrovent Hfa] 2 puff INHALATION RT-QID 11/06/16 11/06/16 Previous Rx's Medication Instructions Recorded Dicyclomine [Bentyl] 20 mg PO QID PRN #30 tablet 11/06/16 Omeprazole [PriLOSEC] 40 mg PO DAILY #30 capsule. 11/06/16 Ondansetron [Zofran ODT] 8 mg PO Q8HR PRN #12 tab 11/06/16 Allergies Allergy/AdvReac Type Severity Reaction Status Date / Time haloperidol [From Haldol] AdvReac Hallucinati Verified 11/06/16 18:12 ons haloperidol lactate AdvReac Hallucinati Verified 11/06/16 18:12 [From Haldol] ons Review of Systems ROS Statement: Those systems with pertinent positive or pertinent negative responses have been documented in the HPI. ROS Other: All systems not noted in ROS Statement are negative. Past Medical History Past Medical History: Diabetes Mellitus, Hypertension Additional Past Medical History / Comment(s): chronic back pain, sleep apnea, osteomyolitis, pancreatitis History of Any Multi-Drug Resistant Organisms: MRSA Date of last positivie culture/infection: 2008 MDRO Source:: back Past Surgical History: Back Surgery, Cholecystectomy, Tonsillectomy Additional Past Surgical History / Comment(s): spinal fusion at L4 and L5, pancreatic surgery Past Anesthesia/Blood Transfusion Reactions: No Reported Reaction Past Psychological History: Anxiety, Bipolar, Depression Smoking Status: Current every day smoker Past Alcohol Use History: None Reported Past Drug Use History: None Reported - Past Family History Mother Family Medical History: Hypertension Additional Family Medical History / Comment(s): Pt states mother had no health problems. Father Family Medical History: No Reported History Additional Family Medical History / Comment(s): pt stated his father is - had no medicals problems nad of natrual causes. General Exam - General Exam Comments Initial Comments: GENERAL: The patient is well nourished and well hydrated. VITAL SIGNS: Heart rate, blood pressure, respiratory rate reviewed as recorded in nurse's notes. EYES: Pupils are round and reactive. Extraocular movements are intact. No conjunctival / lid redness or swelling. ENT: No external evidence of injury, swelling, or ecchymosis. Airway is patent. Throat is clear. NECK: Nontender. No swelling or evidence of injury. No subcutaneous emphysema. Trachea is midline. No thyroid mass. HEART: Regular rate and rhythm. Good peripheral pulses. LUNGS/CHEST: Breath sounds clear and equal bilaterally. No rales, rhonchi, or wheezes. No ecchymosis, subcutaneous emphysema, or tenderness. ABDOMEN: There is some tenderness noted to the mid to left upper abdomen. No peritoneal signs, abdomen is soft. No palpable masses or organomegaly. No peritoneal signs. No abdominal wall swelling or ecchymosis. EXTREMITIES: No extremity tenderness. Normal muscle tone and function. No thoracolumbar tenderness. NEUROLOGIC: Sensation is grossly intact. Cranial nerve exam reveals face is symmetrical, tongue is midline, speech is clear. SKIN: No abrasions or ecchymosis is noted. No induration or masses noted. PSYCHIATRIC: Alert and oriented. Appropriate behavior and judgment. Limitations: no limitations Course Vital Signs 11/06/16 11/06/16 11/06/16 17:29 18:42 19:42 Temperature 98.8 F Pulse Rate 104 H 96 97 Respiratory 20 18 Rate Blood Pressure 113/71 132/64 O2 Sat by Pulse 96 95 Oximetry 11/06/16 20:27 Temperature Pulse Rate 94 Respiratory 20 Rate Blood Pressure 116/64 O2 Sat by Pulse 99 Oximetry Medical Decision Making - Medical Decision Making The patient was seen and examined. All diagnostics were reviewed. An IV is started and he is hydrated. He also receives some Dilaudid, Zofran, and Protonix intravenously. The EKG shows a normal sinus rhythm at a rate of 97. There is no acute ST-T wave changes identified. The PA interval is 184, the QRS duration is 110, and the QTc interval is 474. The laboratory is reviewed. The amylase and lipase are normal at this time. He is feeling much improved on recheck and is sleeping. The acute abdominal series does not show any acute process per my review with final radiologic review pending. The laboratory was all essentially within normal limits except for an elevation of the glucose at 271 and this is consistent with his history of diabetes. The pancreatic enzymes are negative. It is felt less likely that his symptoms are related to pancreatitis at this time. His symptomatology could be related to a gastritis or peptic ulcer disease. His felt as though he is stable for discharge and we will add some Prilosec to his medication and he is instructed to stop the Pepcid. It is felt as though he may benefit from follow-up with a welt sole layer. Return parameters are discussed. - Lab Data Result diagrams: 11/06/16 17:55 11/06/16 17:55 Lab Results 11/06/16 11/06/16 11/06/16 Range/Units 17:55 17:55 17:55 WBC 11.4 H (3.8-10.6) k/uL RBC 4.35 (4.30-5.90) m/uL Hgb 13.4 (13.0-17.5) gm/dL Hct 39.4 (39.0-53.0) % MCV 90.7 (80.0-100.0) fL MCH 30.7 (25.0-35.0) pg MCHC 33.9 (31.0-37.0) g/dL RDW 13.7 (11.5-15.5) % Plt Count 226 (150-450) k/uL Neutrophils % 76 % Lymphocytes % 17 % Monocytes % 3 % Eosinophils % 3 % Basophils % 0 % Neutrophils # 8.7 H (1.3-7.7) k/uL Lymphocytes # 1.9 (1.0-4.8) k/uL Monocytes # 0.4 (0-1.0) k/uL Eosinophils # 0.3 (0-0.7) k/uL Basophils # 0.1 (0-0.2) k/uL PT 10.8 (9.0-12.0) sec INR 1.1 (<1.2) APTT 25.9 (22.0-30.0) sec Sodium 135 L (137-145) mmol/L Potassium 4.6 (3.5-5.1) mmol/L Chloride 100 (98-107) mmol/L Carbon Dioxide 23 (22-30) mmol/L Anion Gap 12 mmol/L BUN 23 H (9-20) mg/dL Creatinine 1.00 (0.66-1.25) mg/dL Est GFR (MDRD) Af Amer >60 (>60 ml/min/1.73 sqM) Est GFR (MDRD) Non-Af >60 (>60 ml/min/1.73 sqM) Glucose 271 H (74-99) mg/dL Calcium 9.9 (8.4-10.2) mg/dL Total Bilirubin 0.3 (0.2-1.3) mg/dL AST 17 (17-59) U/L ALT 28 (21-72) U/L Alkaline Phosphatase 52 (38-126) U/L Total Protein 6.6 (6.3-8.2) g/dL Albumin 4.0 (3.5-5.0) g/dL Amylase 33 (30-110) U/L Lipase 143 (23-300) U/L Urine Color Urine Appearance (Clear) Urine pH (5.0-8.0) Ur Specific [place] (1.001-1.035) Urine Protein (Negative) Urine Glucose (UA) (Negative) Urine Ketones (Negative) Urine Blood (Negative) Urine Nitrite (Negative) Urine Bilirubin (Negative) Urine Urobilinogen (<2.0) mg/dL Ur Leukocyte Esterase (Negative) 11/06/16 Range/Units 19:25 WBC (3.8-10.6) k/uL RBC (4.30-5.90) m/uL Hgb (13.0-17.5) gm/dL Hct (39.0-53.0) % MCV (80.0-100.0) fL MCH (25.0-35.0) pg MCHC (31.0-37.0) g/dL RDW (11.5-15.5) % Plt Count (150-450) k/uL Neutrophils % % Lymphocytes % % Monocytes % % Eosinophils % % Basophils % % Neutrophils # (1.3-7.7) k/uL Lymphocytes # (1.0-4.8) k/uL Monocytes # (0-1.0) k/uL Eosinophils # (0-0.7) k/uL Basophils # (0-0.2) k/uL PT (9.0-12.0) sec INR (<1.2) APTT (22.0-30.0) sec Sodium (137-145) mmol/L Potassium (3.5-5.1) mmol/L Chloride (98-107) mmol/L Carbon Dioxide (22-30) mmol/L Anion Gap mmol/L BUN (9-20) mg/dL Creatinine (0.66-1.25) mg/dL Est GFR (MDRD) Af Amer (>60 ml/min/1.73 sqM) Est GFR (MDRD) Non-Af (>60 ml/min/1.73 sqM) Glucose (74-99) mg/dL Calcium (8.4-10.2) mg/dL Total Bilirubin (0.2-1.3) mg/dL AST (17-59) U/L ALT (21-72) U/L Alkaline Phosphatase (38-126) U/L Total Protein (6.3-8.2) g/dL Albumin (3.5-5.0) g/dL Amylase (30-110) U/L Lipase (23-300) U/L Urine Color Yellow Urine Appearance Clear (Clear) Urine pH 7.0 (5.0-8.0) Ur Specific [place] 1.014 (1.001-1.035) Urine Protein Negative (Negative) Urine Glucose (UA) 2+ H (Negative) Urine Ketones Negative (Negative) Urine Blood Negative (Negative) Urine Nitrite Negative (Negative) Urine Bilirubin Negative (Negative) Urine Urobilinogen <2.0 (<2.0) mg/dL Ur Leukocyte Esterase Negative (Negative) Disposition Clinical Impression: Abdominal pain, Nausea, Gastritis Disposition: HOME SELF-CARE Condition: Good Instructions: Gastritis (ED), Abdominal Pain (ED) Prescriptions: Dicyclomine [Bentyl] 20 mg PO QID PRN #30 tablet PRN Reason: Pain Omeprazole [PriLOSEC] 40 mg PO DAILY #30 capsule. Ondansetron [Zofran ODT] 8 mg PO Q8HR PRN #12 tab PRN Reason: Nausea Referrals: Jordon Wood MD [Primary Care Provider] - 1-2 days Sarai Lemos MD [STAFF PHYSICIAN] - 11/09/16 Time of Disposition: 20:51
[2016-11-06 18:13] LABS: Basophils # (A) 0.1 k/uL (0-0.2); Basophils % (A) 0 %; CH 31.7; CHCM 35.1; Eosinophils # (A) 0.3 k/uL (0-0.7); Eosinophils % (A) 3 %; HCT 39.4 % (39.0-53.0); HDW 2.26; HGB 13.4 gm/dL (13.0-17.5); Luc # (Auto) 0.14; Luc % (Auto) 1; Lymphocytes # (A) 1.9 k/uL (1.0-4.8); Lymphocytes % (A) 17 %; MCH 30.7 pg (25.0-35.0); MCHC 33.9 g/dL (31.0-37.0); MCV 90.7 fL (80.0-100.0); Mean Platelet Volume 7.4; Monocytes # (A) 0.4 k/uL (0-1.0); Monocytes % (A) 3 %; Neutrophils # (A) 8.7 k/uL (1.3-7.7); Neutrophils % (A) 76 %; RBC 4.35 m/uL (4.30-5.90); RDW 13.7 % (11.5-15.5); WBC 11.4 k/uL (3.8-10.6); WBC (Perox) 11.48
[2016-11-06 18:25] LABS: INR 1.1 (<1.2); Partial Thromboplastin Time 25.9 sec (22.0-30.0); Prothrombin Time 10.8 sec (9.0-12.0)
[2016-11-06 18:37] LABS: ALT 28 U/L (21-72); AST 17 U/L (17-59); Alkaline Phosphatase 52 U/L (38-126); Amylase 33 U/L (30-110); Anion Gap 12 mmol/L; Blood Urea Nitrogen 23 mg/dL (9-20); Calcium 9.9 mg/dL (8.4-10.2); Carbon Dioxide 23 mmol/L (22-30); Chloride 100 mmol/L (98-107); Glucose 271 mg/dL (74-99); Non-African American GFR(MDRD) >60 (>60 ml/min/1.73 sqM); Potassium 4.6 mmol/L (3.5-5.1); Sodium 135 mmol/L (137-145); Total Bilirubin 0.3 mg/dL (0.2-1.3); Total Protein 6.6 g/dL (6.3-8.2)
[2016-11-06 19:51] LABS: Appearance,Urine Clear (Clear); Bilirubin,Urine Negative (Negative); Glucose,Urine (UA) 2+ (Negative); Ketones,Urine Negative (Negative); Leukocyte Esterase,Urine Negative (Negative); Nitrite,Urine Negative (Negative); Protein,Urine Negative (Negative); Specific Gravity,Urine 1.014 (1.001-1.035); UA Billing (MACRO vs. MICRO) CHEM; Urobilinogen,Urine <2.0 mg/dL (<2.0)
[2016-11-06 21:07] VITALS: BP 135/78; PULSE 96; RESP 18; TEMP 98
--- NOTE | 2016-11-07 13:57 | XR ---
EXAMINATION TYPE: XR abdomen acute w cxr DATE OF EXAM: 11/06/2016 CLINICAL HISTORY: Abdomen pain TECHNIQUE: Single frontal view of chest is obtained. Supine and upright views of the abdomen are acq uired. COMPARISON: None. FINDINGS: 0.6 cm nodular density may be in the periphery of the left upper outer lung field. No suspi cious infiltrates are evident. Heart size is normal. No pneumothorax is evident. Osseous structures are intact. No free air is under the diaphragm. Normal colonic bowel gas is presen t. Psoas margins are normal. Cholecystectomy clips are present. Postsurgical changes are in the lower lumbar spine. No mass effect is evident. Suspicious calcifications are not evident. Advanced degener ative changes are at the right hip. IMPRESSION: 1. Nodular density left upper outer chest. Follow-up chest study in 3 months is recommended. 2. Nonspecific bowel gas pattern.
== END 2016-11-06 21:07 | disposition home or self-care (01) ==
LOC: EC 17:14
DX: K29.70 Gastritis, unspecified, without bleeding (principal); I10 Essential (primary) hypertension; E11.9 Type 2 diabetes mellitus without complications; G47.30 Sleep apnea, unspecified; Z86.14 Personal history of Methicillin resistant Staphylococcus aureus infection; F41.9 Anxiety disorder, unspecified; F31.9 Bipolar disorder, unspecified; F17.200 Nicotine dependence, unspecified, uncomplicated; Z90.49 Acquired absence of other specified parts of digestive tract; Z79.899 Other long term (current) drug therapy; Z88.8 Allergy status to other drugs, medicaments and biological substances
CPT/HCPCS: 36415; 94640; 93005; 80053; 82150; 83690; 85025; 85610; 85730; 81003; 74022; 99284; 96374; 96375 ×2; 96361 ×3; J2405; J1170; C9113

== ENCOUNTER → 2016-12-05 | Outpatient (CLI) | payer MEDICARE, OTHER | END | disposition home or self-care (01) | LOC: RADMRIMAIN 18:47 | PROVIDERS: ATTEND Physician Assistant | DX: Z53.9 Procedure and treatment not carried out, unspecified reason (principal) ==

== ENCOUNTER → 2017-04-18 | Outpatient (CLI) | payer MEDICARE, OTHER ==
--- NOTE | 2017-04-18 15:06 | PN ---
PROGRESS NOTE DATE OF SERVICE: 04/18/17 52-year-old gentleman who has been followed in [facility] for treatment of extremely severe obstructive sleep apnea-hypopnea syndrome. His apnea-hypopnea index is 121.4 by results of sleep study done in 2010. Since that time, patient lost 82 pounds and recently has extreme difficulties with his PAP unit. Previous visit was done on 09/14/2015. At that time, I recommended to repeat CPAP titration because at that time patient already lost 57 pounds, but test was not done. I checked the patient machine. BiPAP pressure is 20/16. Again, patient has difficulties to use the equipment. Recently usage for more than 4 hours is 5/30 nights for the last month. 6 months is 150 out of 180 for more than 4 hours. Average usage is 7.1 hour. [place] Sleepiness Scale today is 7. MEDICATIONS: Amitiza, Centrum, Cymbalta, Doxepin, doxycycline, duloxetine, Famotidine, fenofibrate, gabapentin, Lamictal, meloxicam, metoprolol. PHYSICAL EXAM: Patient in no distress, BP 120/82, HR 102, RR 18, height 5 feet 11 inches, weight 267.8, BMI 37.0, oxygen saturation on room air 92%. Oropharynx extremely low position of soft palate. Mallampati 4. Lungs wheezes. Abdomen slightly obese. Neck Supple, no JVD. Thyroid is not palpable. LUNGS Clear to percussion and to auscultation. Good air exchange. No wheezing or rhonchi. HEART S1, S2 regular. No murmurs, gallops, or rubs. ABDOMEN: Obese. Soft and nontender. Bowel sounds are present. No organomegaly appreciated. EXTREMITIES No clubbing or cyanosis. TAR AND AMMONIA PUMP OPERATOR Awake, alert, and oriented X3. Cranial nerves 2 to 7 intact. There is no fasciculation or atrophy. noted. No focal deficits observed. IMPRESSION: 1. Extremely severe obstructive sleep apnea-hypopnea syndrome; apnea-hypopnea index 121 with oxygen desaturation to 65%. Patient lost 82 pounds since the previous titration. Cannot use his equipment at the present time because does not feel comfortable to breath with that. 2. Obesity. 3. Diabetes mellitus. 4. Bipolar. 5. Anxiety. 6. Hypertension. 7. Hyperlipidemia. 8. Chronic obstructive pulmonary disease. 9. Acid reflux. 10.History of pancreatitis, history of pancreatic cyst, status post stent insertion. 11.History of spinal abscess. 12.Status post cholecystectomy. 13.Status post tonsillectomy. PLAN: 1. Repeat CPAP if necessary BiPAP titration for evaluation of effective pressure at the present time after the patient lost 82 pounds of weight. 2. Continue losing weight. 3. Sleep hygiene with regular time in bed for at least 8 hours. 4. No driving if feeling sleepiness. Thank you very much for allowing me to participate in management of your patient. Sincerely, Tulio Tejeda MD, PhD, FAASM Diplomat of [employer] Payroll Bookkeeper of [facility] [place] MMODL / NICOLEN: [id number] /
== END | disposition home or self-care (01) ==
LOC: SLEEP 13:35
PROVIDERS: ATTEND Internal Medicine
DX: G47.33 Obstructive sleep apnea (adult) (pediatric) (principal); E66.9 Obesity, unspecified; I10 Essential (primary) hypertension; E11.9 Type 2 diabetes mellitus without complications; F31.9 Bipolar disorder, unspecified; F41.9 Anxiety disorder, unspecified; E78.5 Hyperlipidemia, unspecified; J44.9 Chronic obstructive pulmonary disease, unspecified; K21.9 Gastro-esophageal reflux disease without esophagitis; Z87.19 Personal history of other diseases of the digestive system; Z86.69 Personal history of other diseases of the nervous system and sense organs; Z90.49 Acquired absence of other specified parts of digestive tract; Z90.89 Acquired absence of other organs; Z99.89 Dependence on other enabling machines and devices; Z79.899 Other long term (current) drug therapy; Z79.891 Long term (current) use of opiate analgesic; Z79.2 Long term (current) use of antibiotics; Z79.1 Long term (current) use of non-steroidal anti-inflammatories (NSAID); Z95.828 Presence of other vascular implants and grafts

== ENCOUNTER → 2017-07-04 | Outpatient (CLI) | payer MEDICARE, OTHER ==
--- NOTE | 2017-07-04 14:55 | SFUN ---
SLEEP CENTER FOLLOW UP NOTE DATE OF SERVICE: 07/04/2017 The 52-year-old gentleman has been followed in Sleep Center for treatment of severe obstructive sleep apnea-hypopnea syndrome. Recently we repeated his titration procedure because patient lost a significant amount of weight and titration was successful. Subsequently, he received his new BiPAP machine and today is his first visit after he received his new machine. I checked reading from his machine. BiPAP pressure is 18/14 cm of water. Usage is 93% of the time more than 4 hours. Average usage 8 hours and 1 minute. Apnea-hypopnea index reading from the machine for last month only 1.6, which is totally perfect. Sometimes patient has leak from the mask, but again his breathing is on full control. Previously patient was on oxygen supplement during the night. During the test the patient also used additional oxygen 2 L/minute and according to him his oxygen generator now does not work. The patient likes his new machine. It is not noisy and the patient feels comfortable with it. MEDICATIONS: Amitiza, Cymbalta, doxepin, duloxetine, famotidine, fenofibrate, gabapentin, Lamictal, meloxicam, metoprolol. PHYSICAL EXAM: GENERAL Patient in no distress. VITAL SIGNS BP 111/66, HR 96, RR 16, weight 270, temp 96.8, oxygen saturation room air 95%. HEENT PERRLA, EOMI, evaluation of oropharynx showed extremely low position of soft palate. NECK Supple, no JVD. Thyroid is not palpable. LUNGS Clear to percussion and to auscultation. Good air exchange. No wheezing or rhonchi. HEART S1, S2 regular. No murmurs, gallops, or rubs. ABDOMEN Slightly obese, soft and nontender. Bowel sounds are present. No organomegaly appreciated. EXTREMITIES No clubbing or cyanosis. PRINCIPAL PROCESS ENGINEER Awake, alert, and oriented X3. Cranial nerves 2 to 7 intact. There is no fasciculation or atrophy. noted. No focal deficits observed. IMPRESSION: 1. Obstructive sleep apnea-hypopnea syndrome on control with BiPAP on 18/14 cm of water. Patient demonstrated very good compliance with treatment benefitting from treatment. 2. Severe periodic limb movements during titration. 3. Obesity. 4. Diabetes mellitus. 5. Bipolar. 6. Anxiety. 7. Hypertension. 8. Hyperlipidemia. 9. Chronic obstructive pulmonary disease. 10.Acid reflux. 11.History of pancreatitis, pancreatic cyst, status post stent insertion. 12.History of spinal sepsis. 13.Status post cholecystectomy. 14.Status post tonsillectomy. PLAN: 1. Continue treatment with BiPAP every night for the whole night with 2 L/minute oxygen supplement. During the sleep study oxygen level was below normal during the titration for 19 minutes. 2. Losing weight. 3. Sleep hygiene with regular time in bed for at least 8 hours. 4. No driving if feeling any sleepiness. 5. Watching and losing weight. Thank you very much for allowing me to participate in management of your patient. Sincerely, Tulio Tejeda MD, PhD, FAASM Diplomat of [employer] [employer] Superintendent [employer] [facility] [place] MMODL / NICOLEN: [id number] /
== END | disposition home or self-care (01) ==
LOC: SLEEP 13:37
PROVIDERS: ATTEND Internal Medicine
DX: G47.33 Obstructive sleep apnea (adult) (pediatric) (principal); G47.61 Periodic limb movement disorder; E66.9 Obesity, unspecified; E11.9 Type 2 diabetes mellitus without complications; F31.9 Bipolar disorder, unspecified; F41.9 Anxiety disorder, unspecified; I10 Essential (primary) hypertension; E78.5 Hyperlipidemia, unspecified; J44.9 Chronic obstructive pulmonary disease, unspecified; K21.9 Gastro-esophageal reflux disease without esophagitis; Z90.49 Acquired absence of other specified parts of digestive tract; Z98.890 Other specified postprocedural states; Z87.19 Personal history of other diseases of the digestive system; Z79.899 Other long term (current) drug therapy; Z99.89 Dependence on other enabling machines and devices; Z87.39 Personal history of other diseases of the musculoskeletal system and connective tissue; Z79.84 Long term (current) use of oral hypoglycemic drugs

== ENCOUNTER → 2017-10-24 | Outpatient (CLI) | payer MEDICARE, OTHER ==
[2017-10-24 18:04] LABS: MCH 29.7 pg (25.0-35.0); MCHC 31.8 g/dL (31.0-37.0); MCV 93.4 fL (80.0-100.0); Mean Platelet Volume 7.1; Platelet Count 196 k/uL (150-450); RBC 4.71 m/uL (4.30-5.90); RDW 12.8 % (11.5-15.5); WBC 8.1 k/uL (3.8-10.6)
[2017-10-24 18:09] LABS: ALT 35 U/L (21-72); AST 24 U/L (17-59); Albumin 3.9 g/dL (3.5-5.0); Alkaline Phosphatase 46 U/L (38-126); Anion Gap 7 mmol/L; Blood Urea Nitrogen 14 mg/dL (9-20); Calcium 9.6 mg/dL (8.4-10.2); Carbon Dioxide 28 mmol/L (22-30); Chloride 103 mmol/L (98-107); Glucose 184 mg/dL (74-99); Potassium 4.8 mmol/L (3.5-5.1); Sodium 138 mmol/L (137-145); Total Bilirubin 0.6 mg/dL (0.2-1.3); Total Protein 6.7 g/dL (6.3-8.2)
[2017-10-24 18:13] LABS: INR 1.1 (<1.2); Partial Thromboplastin Time 25.5 sec (22.0-30.0); Prothrombin Time 10.8 sec (9.0-12.0)
[2017-10-24 18:34] LABS: Appearance,Urine Clear (Clear); Bilirubin,Urine Negative (Negative); Blood,Urine Negative (Negative); Color,Urine Yellow; Glucose,Urine (UA) Negative (Negative); Ketones,Urine Negative (Negative); Leukocyte Esterase,Urine Negative (Negative); Nitrite,Urine Negative (Negative); PH, Urine 6.5 (5.0-8.0); Protein,Urine Negative (Negative); Specific Gravity,Urine 1.013 (1.001-1.035)
== END | disposition home or self-care (01) ==
LOC: LABPAT 16:49
PROVIDERS: ATTEND Orthopaedic Surgery
DX: Z01.812 Encounter for preprocedural laboratory examination (principal)
CPT/HCPCS: 36415; 80053; 81003; 85027; 85610; 85730; 86850; 86900; 86901; 87070

== ENCOUNTER 2017-10-28 07:21 | Inpatient (IN) | payer MEDICARE, OTHER ==
[~2017-10-28 07:21] MED LIST: ACETAMINOPHEN TAB 500 MG TAB PO ONE; DEXAMETHASONE SOD PHOSPHATE 10 MG/ML 1 ML VIAL IV ONE; LACTATED RINGERS 1,000 ML IV SCH; MELOXICAM 7.5 MG TAB PO ONE; MIDAZOLAM 2 MG/2 ML VIAL IV PRN; ONDANSETRON 4 MG/2 ML VIAL IVP ONE; ROPIVACAINE 246.25 MG, EPINEPHrine 0.5 MG, KETOROLAC 30 MG, cloNIDine HCL/PF 80 MCG, WA... MISCELLANE ONE; SCOPOLAMINE 1.5MG/72HR PATCH TRANSDERM ONE; TRANEXAMIC ACID 1,000 MG in SODIUM CHLORIDE 0.9% 50 ML IVPB ONE; fentaNYL (PF) 50 MCG/ML 2 ML AMP IV PRN
[2017-10-28 08:19] LABS: Glucose,Whole Blood 150 mg/dL (75-99)
[2017-10-28] MEDS ORDERED: LIDOCAINE 1% 20 ML VIAL (10MG/ML) FOR IV START INTRADERMA ONE (08:20)
[2017-10-28] MEDS ORDERED: MAGNESIUM HYDROXIDE 2,400 MG/10 ML CUP PO PRN (08:46)
[2017-10-28] MEDS ORDERED: DIAZEPAM 5 MG TAB PO PRN ×2 (08:46)
[2017-10-28] MEDS ORDERED: NALOXONE 0.4 MG/ML 1 ML VIAL IV PRN (08:46)
[2017-10-28] MEDS ORDERED: HYDROmorphone 1 MG/ML 1 ML SYRINGE IVP PRN ×2 (08:46)
[2017-10-28] MEDS ORDERED: ONDANSETRON 4 MG/2 ML VIAL IVP PRN (08:46)
[2017-10-28] MEDS ORDERED: HYDROcodone/APAP 7.5-325MG 1 EACH TAB PO PRN (08:46)
[2017-10-28] MEDS ORDERED: hydrOXYzine PAMOATE 25 MG CAP PO PRN (08:46)
[2017-10-28] MEDS ORDERED: MIDAZOLAM 2 MG/2 ML VIAL ONE (09:25)
[2017-10-28] MEDS ORDERED: diphenhydrAMINE 50 MG/ML 1 ML VIAL ONE (09:25)
[2017-10-28] MEDS ORDERED: SODIUM CHLORIDE 0.9% IRRIG 1,000 ML BTL IRRIGATION ONE (09:25)
[2017-10-28] MEDS ORDERED: fentaNYL (PF) 50 MCG/ML 2 ML AMP ONE (09:25)
[2017-10-28] MEDS ORDERED: PROPOFOL 10 MG/ML 20 ML VIAL IV ONE (09:25)
[2017-10-28] MEDS ORDERED: KETAMINE 10 MG/ML 20 ML VIAL ONE (09:25)
[2017-10-28] MEDS ORDERED: HEPARIN SODIUM,PORCINE 10,000 UNIT/ML 1 ML VIAL ONE (09:25)
[2017-10-28] MEDS ORDERED: TRANEXAMIC ACID 1,000 MG/10 ML VIAL ONE (09:25)
[2017-10-28] MEDS ORDERED: SODIUM CHLORIDE 0.9% 100 ML BAG ONE (09:25)
[2017-10-28] MEDS ORDERED: ceFAZolin 3,000 MG in SODIUM CHLORIDE 0.9% IRRIGATIO 3,000 ML IRRIGATION ONE (10:06)
--- NOTE | 2017-10-28 10:54 | P.OP ---
Date of Procedure: 10/28/17 Preoperative Diagnosis: Severe osteoarthritis right hip Postoperative Diagnosis: Severe osteoarthritis right hip Procedure(s) Performed: Right total hip arthroplasty with a direct anterior approach Implants: Godinez and nephew Polarstem size 5 standard Godinez & Nephew R3, 3 hole acetabular shell, 52 mm Godinez [employer] Nephew reflection 6.5 mm cancellus screw, 20 mm 2 Godinez [employer] Nephew R3, XLPE 20 acetabular liner Godinez & Nephew Oxinium femoral head 36 m, +8 All components were press-fit. The articulation is Oxinium on polyethylene. Anesthesia: spinal Surgeon: Trey Villalobos Personal Trainer #1: Katherine Cesar Estimated Blood Loss (ml): 150 (65 mL returned with Cell Saver) Pathology: other (Femoral head) Condition: stable Disposition: PACU Indications for Procedure: After failure of conservative treatment we discussed the surgical and nonsurgical treatment options at length. Patient wishes to proceed with a total hip arthroplasty with a direct anterior approach. Complications specific to this procedure were discussed at length, including but not limited to infection, leg length discrepancy, dislocation, and nerve injury. Patient is aware of all these complications and informed consent was obtained Operative Findings: The operative findings are consistent with severe osteoarthritis of the right hip Description of Procedure: Patient was seen and evaluated in the preoperative area, consent was reviewed, and the surgical site was marked with a skin marker. Patient was then brought to the operating room and given prophylactic antibiotics intravenously. 1 g of Tranexamic acid was also given. A spinal anesthetic was administered by the anesthesia department. The patient was then placed on the Wellman table with the bony prominences well-padded. The hip area was then prepped and draped in usual sterile fashion. A universal timeout was then performed, which confirmed the patient's name, surgical site, ALLERGIES, and procedure being performed. Next the incision site was located at 1 cm distal and 1 cm lateral to the anterior superior iliac spine. The skin and subcutaneous tissues were sharply incised. Incision was carefully dissected down to the fascia overlying the tensor fascia natasha muscle. This fascia was then incised in line with the incision. Next, using blunt finger dissection, the tensor fascia natasha muscle was dissected off its investing fascia. The muscle was then carefully retracted laterally with a cobra retractor over the lateral neck of the femur. Next, the circumflex vessels were identified and cauterized using the AquaMantis device. The anterior hip capsule was then exposed. The capsule was then opened and an inverted T fashion. Cobra retractors were then placed intracapsularly. The proximal femur was then visualized. The femoral neck was then osteotomized appropriate level above the lesser trochanter. Small amount of traction was placed with the Wellman table. A small wedge of bone was then removed from the remaining femoral head. Next, using a corkscrew femoral head was easily removed from the acetabulum. On gross visual inspection, the femoral head had complete loss of articular cartilage in multiple periarticular osteophytes. Attention was then turned to the acetabulum. the acetabulum was exposed and any remaining labrum was excised. Sequential reaming of the acetabulum was performed using fluoroscopic guidance. When the appropriate size was reached, a trial was then placed. The position and fit of the trial was checked with fluoroscopy. The trial was then removed. Then, using fluoroscopic guidance, the final implant was impacted at 20 of anteversion and 40 of abduction, and fully seated in the acetabulum. 2 screws were then placed in the acetabulum. Again fluoroscopy was used to check position of the screws. Next, the liner was then impacted, with a 20 elevated liner located in the anterior superior quadrant. Component locking was confirmed. Attention was then directed to the femur. With the aid of the Wellman table, the femur was externally rotated to approximately 130, extended, and abducted under the opposite leg. A side hook was then placed under the proximal femur, and the side hook elevator was used to elevate the proximal femur. Retractors were then placed. A capsular release was performed, as well as a release of the conjoined tendon, which afforded excellent visualization of the proximal femur. Next, a box osteotome was used to lateralize the proximal femur. A machine shorthand teacher was then used to locate the femoral canal. Sequential broaching was then performed with appropriate size which afforded excellent fixation in the proximal femur. A trial was then placed with appropriate head and neck, and the hip was gently reduced with the aid of the Wellman table. Fluoroscopy was then used to check position of the components, as well as to ensure equal leg lengths. The hip was then gently dislocated and the trials were then removed. Final implants were then impacted and the hip was again reduced. Final fluoroscopic x-rays confirmed that the components were in anatomic position, as well as equal leg lengths. The hip was also taken through range of motion, and found to be stable. The hip was then copiously irrigated with antibiotic solution with pulsatile lavage. The hip was then irrigated with Irrisept solution. The soft tissues were then injected with a ropivacaine solution, which consisted of 246.25 mg of ropivacaine, 0.5 mg of epinephrine, 30 mg of Toradol, 80 g of clonidine, and 48.45 mL of sterile water, for a total of 100 mL of fluid injected. A second dose of 1 g of Tranexamic acid was also given. the fascia was then closed with 2-0 strata fix suture. The subcutaneous tissue was closed with 3-0 Vicryl. The subcuticular tissue was closed with 3-0 strata fix suture. The skin was then closed with Dermabond glue and a sterile silver dressing. The patient was then transferred to the recovery room in stable condition. The hearing aid assistant LUCILLE Irby was required due to the complexity of surgery, and the need for skilled director medical surgical for positioning, draping, exposure, retraction, and closure of the wound.
--- NOTE | 2017-10-28 10:59 | FL ---
Fluoroscopy History: Rt Hip Replacement Rt hip replacement of the anterior aspect. 2 images scanned. 61 sec fluoro.
[2017-10-28] MEDS ORDERED: LACTATED RINGERS 1,000 ML IV ONE (11:09)
--- NOTE | 2017-10-28 11:37 | XR ---
EXAMINATION TYPE: XR Hip Limited RT DATE OF EXAM: 10/28/2017 CLINICAL HISTORY: Postoperative evaluation TECHNIQUE: Single portable view of the right hip was submitted. FINDINGS: Noted are changes of total hip arthroplasty with femoral and acetabular components appearin g well seated. Alignment is anatomic. Postsurgical soft tissue changes are evident. IMPRESSION: Satisfactory postoperative alignment
[2017-10-28 11:40] LABS: Glucose,Whole Blood 209 mg/dL (75-99)
[2017-10-28] MEDS ORDERED: INSULIN ASPART 100 UNIT/ML 1 ML 10 ML VIAL SQ ONE (11:44)
[2017-10-28] MEDS ORDERED: ceFAZolin 3 GM in SODIUM CHLORIDE 0.9% 100 ML IVPB SCH (16:00)
[2017-10-28] MEDS: SODIUM CHLORIDE 0.9% 1,000 ML IV SCH (17:08)
[2017-10-28] MEDS: ceFAZolin IN SWFI 2 GM/20 ML SYRINGE IVP SCH ×2 (17:09→23:34)
[2017-10-28] MEDS: HYDROcodone/APAP 7.5-325MG 1 EACH TAB PO PRN ×2 (17:11→23:33)
[2017-10-28 17:30] LABS: Glucose,Whole Blood 306 mg/dL (75-99)
[2017-10-28] MEDS: INSULIN ASPART 100 UNIT/ML 1 ML 10 ML VIAL SQ SCH ×2 (17:35→20:25)
[2017-10-28] MEDS: HYDROmorphone 1 MG/ML 1 ML SYRINGE IVP PRN (19:21)
[2017-10-28 20:07] LABS: Glucose,Whole Blood 201 mg/dL (75-99)
[2017-10-28] MEDS: ASPIRIN 325 MG TAB PO SCH (20:24)
[2017-10-28] MEDS: FAMOTIDINE 20 MG TAB PO SCH (20:25)
[2017-10-28] MEDS: DULoxetine HCL 60 MG CAPSULE.DR PO SCH (20:25)
[2017-10-28] MEDS: METOPROLOL TARTRATE 25 MG TAB PO SCH (20:26)
[2017-10-28] MEDS ORDERED: SENNOSIDES-DOCUSATE SODIUM 1 EACH TAB PO SCH (21:00)
[2017-10-28] MEDS ORDERED: MONTELUKAST 10 MG TAB PO SCH (21:00)
[2017-10-28] MEDS ORDERED: traZODone HCL 50 MG TAB PO SCH (21:00)
[2017-10-28] MEDS ORDERED: QUEtiapine 200 MG TAB PO SCH (21:00)
[2017-10-28] MEDS ORDERED: PRAVASTATIN SODIUM 40 MG TAB PO SCH (21:00)
[2017-10-28] MEDS ORDERED: HYDROCORTISONE 1% CREAM 30 GM TUBE TOPICAL PRN (22:10)
[2017-10-28] MEDS ORDERED: DICYCLOMINE 20 MG TAB PO PRN (22:10)
[2017-10-28] MEDS ORDERED: ONDANSETRON ODT 8 MG TAB.RAPDIS PO PRN (22:10)
[2017-10-28] MEDS ORDERED: Insulin Aspart (For Pump) 100 UNIT/ML VIAL SQ-PUMP SCH (22:15)
[2017-10-28] MEDS ORDERED: MELATONIN 5 MG TABLET PO SCH (22:15)
[2017-10-28] MEDS ORDERED: lamoTRIgine 100 MG TAB PO SCH (22:15)
[2017-10-28] MEDS ORDERED: DOXEPIN 25 MG CAP PO SCH (22:15)
[2017-10-28] MEDS ORDERED: INSPUCOR MISCELLANE PRN (22:49)
--- NOTE | 2017-10-28 22:54 | CONS ---
CONSULTATION DATE OF CONSULTATION: 10/28/2017 REASON FOR CONSULTATION: Medical management requested by Dr. Villalobos. CONSULTATION: This is a pleasant 52-year-old patient of Dr. Wood from [facility]. The patient has undergone a right total hip arthroplasty. Pain is controlled. No nausea, vomiting. Chronic stable medical conditions include diabetes mellitus on non-insulin pump. The patient has taken it off for the surgery, GERD, hypertension, obstructive sleep apnea and uses CPAP machine, bipolar disorder and chronic low back pain. Denies any chest pressure. No nausea, vomiting. REVIEW OF SYSTEM: CONSTITUTIONAL: None. HEENT: None. RESPIRATORY: Occasional wheezing. CARDIOVASCULAR: None. GASTROINTESTINAL: Heartburn. GENITOURINARY: None. MUSCULOSKELETAL: Chronic low back pain. DERMATOLOGICAL: None. HEMATOLOGIC: None. LYMPHATIC: None. PSYCHIATRY: Bipolar controlled. NEUROLOGICAL: None. PAST MEDICAL HISTORY: Diabetes on insulin pump, GERD, hypertension, primary osteoarthritis, sleep apnea, uses CPAP, BiPAP machine, arthritis in the spine after fusion surgery, pancreatitis, MRSA infection. PAST SURGICAL HISTORY: Back surgery, cholecystectomy, tonsillectomy, spinal fusion L4-L5, pancreatic surgery for pseudocyst with stent. PAST PSYCH HISTORY: Bipolar disorder. SOCIAL HISTORY: The patient lives with a roommate and a pet dog. Has BiPAP and home oxygen and uses 6 L of the BiPAP and insulin pump. The patient been smoking close to 35 years down from a pack a day to quarter pack a day. The patient has a history of opiate abuse, quit 4 years ago. Does not use alcohol for over 2 years. FAMILY HISTORY: Hypertension. HOME MEDICATIONS: 1. Trazodone 150 mg q.h.s. 2. Lamictal 4 mg q.h.s. 3. Norvasc 5 mg p.o. daily. 4. Seroquel 300 mg in the morning and 200 mg at night. 5. Pravachol 40 mg q.h.s. 6. Zofran 8 mg p.o. q.8h p.r.n. 7. Prilosec 40 mg p.o. daily. 8. Bactroban 2% 1 application nasal t.i.d. 9. Multivitamin 1 tablet p.o. daily. 10.Singulair 10 mg p.o. at bedtime. 11.Lopressor 25 p.o. b.i.d. 12.Mobic 7.5 p.o. daily. 13.Melatonin 10 mg q.h.s. 14.NovoLog pump. 15.Hydrocortisone 2.5% 1 application topical b.i.d. p.r.n. 16.Neurontin 100 mg t.i.d. 17.Tricor 145 mg p.o. daily. 18.Pepcid 20 mg p.o. b.i.d. 19.Doxycycline 100 mg b.i.d. 20.Doxepin 200 mg q.h.s. 21.Bentyl 20 mg q.i.d. p.r.n. 22.Cymbalta 60 mg p.o. b.i.d. 23.Suboxone 8 one q.h.s. 24.Ventolin HFA 1-2 puffs q.6h p.r.n. ALLERGIES: HALDOL. EXAMINATION: Temperature 98.9, pulse 83, respiratory rate 18, blood pressure 96/62, pulse ox 95% on room air. GENERAL APPEARANCE: Well-built, BMI 34.3, sitting up in the bed, not in distress. EYES: Pupils are equal and conjunctivae normal HEENT: External appearance of nose and ears. Oral cavity normal. NECK: JVD not raised. Mass not palpable. RESPIRATORY: Effort normal. LUNGS: Decreased breath sounds, mild wheezing. CARDIOVASCULAR: First and second sounds, no edema. ABDOMEN: Soft, nontender. Liver and spleen not palpable. LYMPHATICS: No lymph node palpable in the neck or axillae. PSYCHIATRY: Alert and oriented x3. Mood and affect normal. NEUROLOGICAL: Pupils are grossly intact. Power and sensation grossly intact. MUSCULOSKELETAL: Dressing over the right hip. INVESTIGATIONS: Accu-Cheks are noted. ASSESSMENT: 1. Right total hip arthroplasty. 2. Diabetes mellitus type 2, chronically on insulin pump. 3. Gastroesophageal reflux disease. 4. Essential hypertension. 5. Obstructive sleep apnea, uses BiPAP machine. 6. Bipolar disorder. 7. Chronic low back pain. 8. Obesity; BMI 34.3. 9. Chronic nicotine dependence. The patient is a cigarette smoker. PLAN: Patient now asked to get his insulin pump in and get started using it in the morning. Home medications resumed. Accu-Cheks to be followed with sliding scale insulin. The patient is also on IV Ancef for the surgery. Care was discussed with the patient. Questions were answered. Thank you, Griselda. ANITA / IJN: [id number] /
[2017-10-28] MEDS ORDERED: INSULIN NPH 300 UNIT/3 ML VIAL SQ ONE (23:00)
[2017-10-28] MEDS: GABAPENTIN 100 MG CAP PO SCH (23:33)
[2017-10-29 02:30] LABS: Glucose,Whole Blood 228 mg/dL (75-99)
[2017-10-29] MEDS: SODIUM CHLORIDE 0.9% 1,000 ML IV SCH ×2 (02:44→16:48)
[2017-10-29] MEDS ORDERED: INSPUCOR MISCELLANE PRN (04:56)
[2017-10-29] MEDS: HYDROmorphone 1 MG/ML 1 ML SYRINGE IVP PRN ×2 (05:23→08:59)
[2017-10-29 06:49] LABS: Basophils % (A) 0 %; Eosinophils # (A) 0.1 k/uL (0-0.7); Eosinophils % (A) 1 %; HGB 12.3 gm/dL (13.0-17.5); Lymphocytes # (A) 2.6 k/uL (1.0-4.8); Lymphocytes % (A) 24 %; MCH 30.8 pg (25.0-35.0); MCHC 33.3 g/dL (31.0-37.0); MCV 92.4 fL (80.0-100.0); Mean Platelet Volume 7.7; Monocytes # (A) 0.6 k/uL (0-1.0); Monocytes % (A) 5 %; Neutrophils # (A) 7.3 k/uL (1.3-7.7); Neutrophils % (A) 68 %; Platelet Count 167 k/uL (150-450); RDW 12.9 % (11.5-15.5); WBC 10.7 k/uL (3.8-10.6)
[2017-10-29 07:10] LABS: Glucose,Whole Blood 175 mg/dL (75-99)
[2017-10-29] MEDS ORDERED: PANTOPRAZOLE 40 MG TABLET PO SCH (07:30)
[2017-10-29] MEDS: INSULIN ASPART 100 UNIT/ML 1 ML 10 ML VIAL SQ SCH ×2 (07:53→12:41)
[2017-10-29] MEDS: HYDROcodone/APAP 7.5-325MG 1 EACH TAB PO PRN ×2 (07:58→14:18)
[2017-10-29] MEDS ORDERED: INSULIN PUMP BASAL RATES 1 EACH MISC MISCELLANE PRN (08:00)
[2017-10-29] MEDS: FAMOTIDINE 20 MG TAB PO SCH (08:57)
[2017-10-29] MEDS: DULoxetine HCL 60 MG CAPSULE.DR PO SCH (08:57)
[2017-10-29] MEDS: ASPIRIN 325 MG TAB PO SCH (08:57)
[2017-10-29] MEDS: GABAPENTIN 100 MG CAP PO SCH ×2 (08:57→16:53)
[2017-10-29] MEDS: METOPROLOL TARTRATE 25 MG TAB PO SCH (08:58)
[2017-10-29] MEDS: MUPIROCIN 2% OINT 22 GM TUBE NASAL SCH ×2 (08:59→16:52)
[2017-10-29] MEDS ORDERED: MULTIVITAMINS, THERA 1 EACH TAB PO SCH (09:00)
[2017-10-29] MEDS ORDERED: NICOTINE 7MG/24HR PATCH TRANSDERM SCH (09:00)
[2017-10-29] MEDS ORDERED: QUEtiapine 100 MG TAB PO SCH (09:00)
[2017-10-29] MEDS ORDERED: FENOFIBRATE 160 MG TAB PO SCH (09:00)
[2017-10-29] MEDS ORDERED: MELOXICAM 7.5 MG TAB PO SCH (09:00)
[2017-10-29] MEDS ORDERED: amLODIPine 5 MG TAB PO SCH (09:00)
--- NOTE | 2017-10-29 09:10 | P.DS ---
Providers Date of admission: 10/28/17 07:21 Expected date of discharge: 10/29/17 Attending physician: Trey Villalobos Consults: 10/28/17 08:46 Consult Physician Routine Consulting Provider: Jordon Wood Consult Reason/Comments: medical management Do you want consulting provider notified?: Yes 10/28/17 11:57 Consult Physician Routine Consulting Provider: Guy Mendoza Consult Reason/Comments: medical management Do you want consulting provider notified?: Yes Primary care physician: Jordon Wood - Discharge Diagnosis(es) (1) Primary osteoarthritis of right hip Current Visit: Yes Status: Acute (2) S/P total hip arthroplasty Current Visit: Yes Status: Acute Hospital Course: This is a 52-year-old male with known history of degenerative arthritis of the right hip. The patient presents for evaluation. After discussion and consideration patient elects to proceed with total hip arthroplasty. The patient is seen preoperatively by Dr. Villalobos and medically cleared for surgery by their primary care physician. Patient is admitted to [facility] on 10/28/2017 for total hip arthroplasty. The procedures performed without complication or sequelae. The patient is doing well postoperatively. Labs and vital signs are stable on day of discharge. On day of discharge patient's hip incision is healing well. There is minimal erythema. There is no drainage noted at this time. There is minimal soft tissue swelling to the hip and thigh. Patient has full foot and ankle motion without difficulty or pain. Neurovascular status to the right lower extremity is intact. Patient is discharged home in good condition. Please see med rec for accurate list of home medications. Plan - Discharge Summary Discharge Rx Participant: Yes New Discharge Prescriptions: New Aspirin 325 mg PO BID #60 tab HYDROcodone/APAP 7.5-325MG [Crestone 7.5-325] 1 - 2 tab PO Q4-6H PRN #84 tab PRN Reason: Pain Sennosides [Senokot] 1 tab PO BID #60 tablet No Action QUEtiapine [SEROquel] 200 mg PO HS Fenofibrate Nanocrystallized [Fenofibrate] 145 mg PO DAILY Pravastatin Sodium [Pravachol] 40 mg PO HS Montelukast [Singulair] 10 mg PO HS Metoprolol Tartrate [Lopressor] 25 mg PO BID Doxepin HCl [SINEquan] 200 mg PO HS Famotidine [Pepcid] 20 mg PO BID QUEtiapine FUMARATE [SEROquel] 300 mg PO QAM traZODone HCL 150 mg PO HS lamoTRIgine 400 mg PO HS Albuterol Inhaler [Ventolin Hfa Inhaler] 1 - 2 puff INHALATION RT-Q6H PRN PRN Reason: Shortness Of Breath amLODIPine [Norvasc] 5 mg PO DAILY Multivitamins, Thera [Multivitamin (formulary)] 1 tab PO DAILY Gabapentin [Neurontin] 100 mg PO TID DULoxetine HCL [Cymbalta] 60 mg PO BID Dicyclomine [Bentyl] 20 mg PO QID PRN #30 tablet PRN Reason: Pain Omeprazole [PriLOSEC] 40 mg PO DAILY #30 capsule. Ondansetron [Zofran ODT] 8 mg PO Q8HR PRN #12 tab PRN Reason: Nausea Mupirocin 2% Oint [Bactroban 2% Oint] 1 applic NASAL TID #15 gm Insulin Aspart (For Pump) [NovoLOG (For Pump)] 0.01 unit SQ-PUMP CONTINUOUS Meloxicam [Mobic] 7.5 mg PO DAILY Hydrocortisone Cream [Hydrocortisone 2.5% Cream] 1 applic TOPICAL BID PRN PRN Reason: Skin Irritation Melatonin 10 mg PO HS Buprenorphine HCl/Naloxone HCl [Suboxone 8 mg-2 mg Sl Film] 1 film SL HS Doxycycline Hyclate 100 mg PO BID Discharge Medication List Fenofibrate Nanocrystallized [Fenofibrate] 145 mg PO DAILY 08/07/13 [History] Metoprolol Tartrate [Lopressor] 25 mg PO BID 08/07/13 [History] Montelukast [Singulair] 10 mg PO HS 08/07/13 [History] Pravastatin Sodium [Pravachol] 40 mg PO HS 08/07/13 [History] QUEtiapine [SEROquel] 200 mg PO HS 08/07/13 [History] Doxepin HCl [SINEquan] 200 mg PO HS 02/05/14 [History] Famotidine [Pepcid] 20 mg PO BID 06/11/14 [History] QUEtiapine FUMARATE [SEROquel] 300 mg PO QAM 10/01/16 [History] lamoTRIgine 400 mg PO HS 10/01/16 [History] traZODone HCL 150 mg PO HS 10/01/16 [History] Albuterol Inhaler [Ventolin Hfa Inhaler] 1 - 2 puff INHALATION RT-Q6H PRN [History] DULoxetine HCL [Cymbalta] 60 mg PO BID 10/22/16 [History] Gabapentin [Neurontin] 100 mg PO TID 10/22/16 [History] Multivitamins, Thera [Multivitamin (formulary)] 1 tab PO DAILY 10/22/16 [History ] amLODIPine [Norvasc] 5 mg PO DAILY 10/22/16 [History] Dicyclomine [Bentyl] 20 mg PO QID PRN #30 tablet 11/06/16 [Rx] Omeprazole [PriLOSEC] 40 mg PO DAILY #30 capsule. 11/06/16 [Rx] Ondansetron [Zofran ODT] 8 mg PO Q8HR PRN #12 tab 11/06/16 [Rx] Mupirocin 2% Oint [Bactroban 2% Oint] 1 applic NASAL TID #15 gm 10/10/17 [Rx] Buprenorphine HCl/Naloxone HCl [Suboxone 8 mg-2 mg Sl Film] 1 film SL HS [History] Hydrocortisone Cream [Hydrocortisone 2.5% Cream] 1 applic TOPICAL BID PRN [History] Insulin Aspart (For Pump) [NovoLOG (For Pump)] 0.01 unit SQ-PUMP CONTINUOUS [History] Melatonin 10 mg PO HS 10/23/17 [History] Meloxicam [Mobic] 7.5 mg PO DAILY 10/23/17 [History] Doxycycline Hyclate 100 mg PO BID 10/24/17 [History] Aspirin 325 mg PO BID #60 tab 10/29/17 [Rx] HYDROcodone/APAP 7.5-325MG [Crestone 7.5-325] 1 - 2 tab PO Q4-6H PRN #84 tab [Rx] Sennosides [Senokot] 1 tab PO BID #60 tablet 10/29/17 [Rx] Follow up Appointment(s)/Referral(s): Trey Villalobos DO [Doctor of Osteopathic Medicine] - 2 Weeks Activity/Diet/Wound Care/Special Instructions: Weightbearing as tolerated with walker Leave dressing intact. Dressing may be removed by home care nurse in 10 days. May shower with dressing on. Follow-up with [facility] in 2 weeks, please call with any questions or concerns [phone] Discharge Disposition: HOME WITH HOME HEALTH SERVICES
[2017-10-29 09:38] VITALS: BMI 33.0
[2017-10-29] MEDS ORDERED: INSULIN PUMP ACTIVE INSULIN 1 EACH MISC MISCELLANE PRN (09:42)
[2017-10-29] MEDS ORDERED: INSULIN PUMP TARGET GLUCOSE 1 EACH MISC MISCELLANE PRN (09:42)
[2017-10-29] MEDS: INSULIN PUMP MEAL BOLUS 1 UNIT MISC MISCELLANE SCH ×3 (12:34→17:05)
[2017-10-29 12:38] LABS: Glucose,Whole Blood 245 mg/dL (75-99)
[2017-10-29 13:24] LABS: Hemoglobin A1C 7.9 % (4.0-6.0)
[2017-10-29 15:16] VITALS: BP 88/50; PULSE 92; RESP 12; TEMP 98.2
--- NOTE | 2017-10-30 00:05 | PN ---
PROGRESS NOTE DATE OF SERVICE: 10/29/2017. PRESENTING COMPLAINT: Right hip surgery. INTERVAL HISTORY: Patient is status post right hip surgery doing well. Pain is controlled. No nausea, vomiting, tolerating a diet. The patient did put his insulin pump back on this morning. REVIEW OF SYSTEMS: Done for constitutional, cardiovascular, GI, pulmonary, musculoskeletal and relevant findings as above. CURRENT MEDICATIONS: Include insulin pump. PHYSICAL EXAMINATION: Temperature 97.6, pulse 72, respiration 16, blood pressure 114/77, pulse ox 94% on room air. GENERAL APPEARANCE : Sitting up, comfortable. EYES: Pupils are equal. Conjunctivae normal. HEENT: External appearance of nose and ears normal. NECK: JVD not raised. Mass not palpable. RESPIRATORY: Effort normal. LUNGS: Diminished breath sounds. CARDIOVASCULAR: First and seconds sounds normal, no edema. ABDOMEN: Soft, nontender. Liver and spleen not palpable. PSYCHIATRY: Alert and oriented x3. Mood and affect normal. INVESTIGATIONS: Hemoglobin 12.3. ASSESSMENT: 1. Right total hip arthroplasty. 2. Diabetes mellitus type 2, chronically on insulin pump. 3. Gastroesophageal reflux disease. 4. Essential hypertension. 5. Obstructive sleep apnea, uses a BiPAP machine. 6. Bipolar disorder. 7. Chronic low back pain from arthritis, probably. 8. Obesity; BMI 34.3. 9. Chronic nicotine dependence. The patient is a cigarette smoker. PLAN: Care was discussed with the patient. The patient's pump was working fine. Should follow with his family doctor. MMODL / IJN: [id number] /
== END 2017-10-29 17:10 | disposition home health service (06) | DRG 470 ==
LOC: 2ORMAIN 07:21 → 3SUR 11:09
PROVIDERS: ADMIT Orthopaedic Surgery; ATTEND Orthopaedic Surgery
PROC: 30233N0 Transfusion of Autologous Red Blood Cells into Peripheral Vein, Percutaneous Approach (ICD-10-PCS; 2017-10-28)
PROC: 0SR906A Replacement of Right Hip Joint with Oxidized Zirconium on Polyethylene Synthetic Substitute, Uncemented, Open Approach (ICD-10-PCS; principal; 2017-10-28 09:15)
DX: M16.0 Bilateral primary osteoarthritis of hip (principal); E66.9 Obesity, unspecified; Z68.33 Body mass index [BMI] 33.0-33.9, adult; E11.9 Type 2 diabetes mellitus without complications; M17.0 Bilateral primary osteoarthritis of knee; I10 Essential (primary) hypertension; F31.9 Bipolar disorder, unspecified; K21.9 Gastro-esophageal reflux disease without esophagitis; F17.210 Nicotine dependence, cigarettes, uncomplicated; G47.33 Obstructive sleep apnea (adult) (pediatric); F11.11 Opioid abuse, in remission; G89.29 Other chronic pain; M54.5 Low back pain; Z79.4 Long term (current) use of insulin; Z79.1 Long term (current) use of non-steroidal anti-inflammatories (NSAID); Z79.899 Other long term (current) drug therapy; Z96.41 Presence of insulin pump (external) (internal); Z98.1 Arthrodesis status; Z86.14 Personal history of Methicillin resistant Staphylococcus aureus infection; Z90.49 Acquired absence of other specified parts of digestive tract; Z87.19 Personal history of other diseases of the digestive system; Z88.8 Allergy status to other drugs, medicaments and biological substances; Z82.49 Family history of ischemic heart disease and other diseases of the circulatory system
CPT/HCPCS: 73501; 83036; 85025; 86850; 86891; 86900; 86901; 88300

== ENCOUNTER 2018-10-30 19:32 | Inpatient (IN) | payer MEDICARE, OTHER ==
[2018-10-30] MEDS ORDERED: SODIUM CHLORIDE 0.9% 1,000 ML IV STA (20:03)
[2018-10-30] MEDS ORDERED: HYDROmorphone 1 MG/ML 1 ML SYRINGE IVP STA ×2 (20:03→23:45)
[2018-10-30] MEDS ORDERED: ONDANSETRON 4 MG/2 ML VIAL IVP STA (20:03)
[2018-10-30] MEDS ORDERED: SODIUM CHLORIDE 0.9% 500 ML 500 ML IV STA (20:03)
--- NOTE | 2018-10-30 20:50 | ED ---
Abdominal Pain HPI - General Source: patient Mode of arrival: ambulatory Limitations: no limitations <Cindy Powell - Last Filed: 10/31/18 00:12> <Anika Grossman - Last Filed: 10/31/18 21:34> - General Chief Complaint: Abdominal Pain Stated Complaint: abdominal pain Time Seen by Provider: 10/30/18 19:56 - History of Present Illness Initial Comments: 53-year-old male patient with past medical history significant for diabetes, acid reflux, hypertension, and pancreatitis presents to the emergency department today for evaluation of upper abdominal pain, vomiting, and diarrhea. Patient states symptoms have been going on for the last 3-4 days. Patient states for the last 2 days he has had several episodes of vomiting per day. States that he has had 2-3 episodes of loose diarrhea over the last couple of days. Denies hematemesis, hematochezia, or melena. Denies any fever or chills. Patient states he does have a history of pancreatitis. He states that he drank a fifth of [place] daily for 16 years. He states he has been sober for [address] drug use. Patient denies any recent rash, shortness breath, chest pain, back pain, numbness, tingling, dizziness, weakness, hematuria, dysuria, urinary urgency, urinary frequency, headache, visual changes, or any other complaints. (Cindy Powell) - Related Data Home Medications Medication Instructions Recorded Confirmed Fenofibrate Nanocrystallized 145 mg PO DAILY 08/07/13 10/31/18 [Fenofibrate] Metoprolol Tartrate [Lopressor] 25 mg PO BID 08/07/13 10/31/18 Montelukast [Singulair] 10 mg PO HS 08/07/13 10/31/18 Pravastatin Sodium [Pravachol] 40 mg PO HS 08/07/13 10/31/18 QUEtiapine FUMARATE [SEROquel] 300 mg PO QA 10/01/16 10/31/18 lamoTRIgine 200 mg PO 10/01/16 10/31/18 traZODone HCL 150 mg PO 10/01/16 10/31/18 Albuterol Inhaler [Ventolin Hfa 1 - 2 puff INHALATION RT-Q6H PRN 10/22/16 10/31/18 Inhaler] Multivitamins, Thera [Multivitamin 1 tab PO DAILY 10/22/16 10/31/18 (formulary)] amLODIPine [Norvasc] 5 mg PO DAILY 10/22/16 10/31/18 Insulin Aspart (For Pump) [NovoLOG 0.01 unit SQ-PUMP CONTINUOUS 10/23/1710/04 (For Pump)] Meloxicam [Mobic] 7.5 mg PO BID 10/23/17 10/31/18 Ergocalciferol [Vitamin D2] 50,000 unit PO Q7D 10/31/18 10/31/18 Gabapentin [Neurontin] 300 mg PO BID 10/31/18 10/31/18 Insulin Glargine,Hum.rec.anlog 50 unit SQ DAILY 10/31/18 10/31/18 [Basaglar Kwikpen U-100] Melatonin 10 mg PO HS 10/31/18 10/31/18 Previous Rx's Medication Instructions Recorded Dicyclomine [Bentyl] 20 mg PO QID PRN #30 tablet 11/06/16 Omeprazole [PriLOSEC] 40 mg PO DAILY #30 capsule. 11/06/16 Ondansetron [Zofran ODT] 8 mg PO Q8HR PRN #12 tab 11/06/16 Mupirocin 2% Oint [Bactroban 2% 1 applic NASAL TID #15 gm 10/10/17 Oint] Aspirin 325 mg PO BID #60 tab 10/29/17 Allergies Allergy/AdvReac Type Severity Reaction Status Date / Time haloperidol [From Haldol] AdvReac Hallucinati Verified 10/31/18 10:53 ons haloperidol lactate AdvReac Hallucinati Verified 10/31/18 10:53 [From Haldol] ons Review of Systems ROS Other: All systems not noted in ROS Statement are negative. <Cindy Powell M - Last Filed: 10/31/18 00:12> ROS Other: All systems not noted in ROS Statement are negative. <Anika Grossman - Last Filed: 10/31/18 21:34> ROS Statement: Those systems with pertinent positive or pertinent negative responses have been documented in the HPI. 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, pancreatitis History of Any Multi-Drug Resistant Organisms: MRSA Date of last positivie culture/infection: 11/03/08 MDRO Source:: spine Past Surgical History: Cholecystectomy Additional Past Surgical History / Comment(s): spinal fusion at L4 and L5, pancreatic surgery for pseudocyst w/stent Past Anesthesia/Blood Transfusion Reactions: No Reported Reaction Past Psychological History: Anxiety, Bipolar, Depression Smoking Status: Current every day smoker Past Drug Use History: Opiates - Past Family History Mother Family Medical History: Hypertension Additional Family Medical History / Comment(s): Pt states mother had no health problems. Father Family Medical History: No Reported History Additional Family Medical History / Comment(s): pt stated his father is - had no medicals problems nad of natrual causes. <Cindy Powell M - Last Filed: 10/31/18 00:12> General Exam Limitations: no limitations General appearance: alert, in no apparent distress, other (This is a well- developed, well-nourished adult male patient in no acute distress. Vital signs upon presentation are temperature 99.5F, pulse 108, respirations 20, blood pr essure 120/78, pulse ox 98% on room air.) Eye exam: Present: normal appearance, PERRL, EOMI. Absent: scleral icterus, conjunctival injection, periorbital swelling ENT exam: Present: normal exam, normal oropharynx, mucous membranes moist Respiratory exam: Present: normal lung sounds bilaterally. Absent: respiratory distress, wheezes, rales, rhonchi, stridor Cardiovascular Exam: Present: regular rate, normal rhythm, normal heart sounds. Absent: systolic murmur, diastolic murmur, rubs, gallop, clicks GI/Abdominal exam: Present: soft, tenderness (Upper abdominal tenderness), normal bowel sounds. Absent: distended, guarding, rebound, rigid Neurological exam: Present: alert, oriented X3, CN II-XII intact Psychiatric exam: Present: normal affect, normal mood Skin exam: Present: warm, dry, intact, normal color. Absent: rash <Cindy Powell - Last Filed: 10/31/18 00:12> Course Vital Signs 10/30/18 10/30/18 10/30/18 19:38 21:00 22:00 Temperature 99.5 F Pulse Rate 108 H 92 88 Respiratory 20 20 20 Rate Blood Pressure 120/78 132/59 132/56 O2 Sat by Pulse 98 99 99 Oximetry 10/31/18 10/31/18 00:01 02:06 Temperature Pulse Rate 52 L 95 Respiratory 16 18 Rate Blood Pressure 161/98 141/94 O2 Sat by Pulse 95 96 Oximetry Medical Decision Making - Lab Data Result diagrams: 10/30/18 20:50 10/30/18 20:50 - Radiology Data Radiology results: report reviewed, image reviewed <Cindy Powell - Last Filed: 10/31/18 00:12> - Lab Data Result diagrams: 10/31/18 10:12 10/31/18 10:12 <Anika Grossman - Last Filed: 10/31/18 21:34> - Medical Decision Making 53-year-old male patient presents to the emergency department today for evaluation of upper abdominal pain, nausea, vomiting. Physical examination does reveal upper abdominal tenderness especially over the midepigastric region. Labs reviewed and are relatively unremarkable except for elevated glucose. Given patient's level tenderness and pain we did perform CT of the abdomen and pelvis which showed evidence for inflammation surrounding the pancreatic head indicating early pancreatitis. Patient remained in quite a bit of pain with nausea. Given CT findings we will clinically diagnosed with pancreatitis and admitted to the hospital for further evaluation, IV fluids, and pain management. Patient is agreeable with this plan. (Cindy Powell) I personally saw and evaluated the patient who continues to complain of epigastric discomfort. Patient will be admitted to medicine with IVF and pain management. Patient care discussed with Mihaela the midlevel provider for [facility] who accepts admission. (Anika Grossman) - Lab Data Lab Results 10/30/18 10/30/18 10/30/18 Range/Units 20:50 20:50 22:20 WBC 11.4 H (3.8-10.6) k/uL RBC 4.95 (4.30-5.90) m/uL Hgb 15.2 (13.0-17.5) gm/dL Hct 44.4 (39.0-53.0) % MCV 89.6 (80.0-100.0) fL MCH 30.6 (25.0-35.0) pg MCHC 34.1 (31.0-37.0) g/dL RDW 13.9 (11.5-15.5) % Plt Count 200 (150-450) k/uL Neutrophils % 69 % Lymphocytes % 23 % Monocytes % 5 % Eosinophils % 1 % Basophils % 0 % Neutrophils # 7.9 H (1.3-7.7) k/uL Lymphocytes # 2.6 (1.0-4.8) k/uL Monocytes # 0.6 (0-1.0) k/uL Eosinophils # 0.1 (0-0.7) k/uL Basophils # 0.1 (0-0.2) k/uL Sodium 134 L (137-145) mmol/L Potassium 4.1 (3.5-5.1) mmol/L Chloride 93 L (98-107) mmol/L Carbon Dioxide 32 H (22-30) mmol/L Anion Gap 9 mmol/L BUN 15 (9-20) mg/dL Creatinine 1.03 (0.66-1.25) mg/dL Est GFR (CKD-EPI)AfAm >90 (>60 ml/min/1.73 sqM) Est GFR (CKD-EPI)NonAf 84 (>60 ml/min/1.73 sqM) Glucose 312 H (74-99) mg/dL POC Glucose (mg/dL) (75-99) mg/dL POC Glu Medical Logistics Specialist ID Calcium 10.6 H (8.4-10.2) mg/dL Total Bilirubin 0.8 (0.2-1.3) mg/dL AST 24 (17-59) U/L ALT 24 (21-72) U/L Alkaline Phosphatase 51 (38-126) U/L Total Protein 7.7 (6.3-8.2) g/dL Albumin 4.7 (3.5-5.0) g/dL Amylase 56 (30-110) U/L Lipase 42 (23-300) U/L Urine Color Yellow Urine Appearance Clear (Clear) Urine pH 6.5 (5.0-8.0) Ur Specific [place] 1.021 (1.001-1.035) Urine Protein Trace H (Negative) Urine Glucose (UA) 4+ H (Negative) Urine Ketones Negative (Negative) Urine Blood Negative (Negative) Urine Nitrite Negative (Negative) Urine Bilirubin Negative (Negative) Urine Urobilinogen <2.0 (<2.0) mg/dL Ur Leukocyte Esterase Negative (Negative) 10/31/18 Range/Units 00:00 WBC (3.8-10.6) k/uL RBC (4.30-5.90) m/uL Hgb (13.0-17.5) gm/dL Hct (39.0-53.0) % MCV (80.0-100.0) fL MCH (25.0-35.0) pg MCHC (31.0-37.0) g/dL RDW (11.5-15.5) % Plt Count (150-450) k/uL Neutrophils % % Lymphocytes % % Monocytes % % Eosinophils % % Basophils % % Neutrophils # (1.3-7.7) k/uL Lymphocytes # (1.0-4.8) k/uL Monocytes # (0-1.0) k/uL Eosinophils # (0-0.7) k/uL Basophils # (0-0.2) k/uL Sodium (137-145) mmol/L Potassium (3.5-5.1) mmol/L Chloride (98-107) mmol/L Carbon Dioxide (22-30) mmol/L Anion Gap mmol/L BUN (9-20) mg/dL Creatinine (0.66-1.25) mg/dL Est GFR (CKD-EPI)AfAm (>60 ml/min/1.73 sqM) Est GFR (CKD-EPI)NonAf (>60 ml/min/1.73 sqM) Glucose (74-99) mg/dL POC Glucose (mg/dL) 265 H (75-99) mg/dL POC Glu Medical Logistics Specialist ID Greenberg, Yomaira, A Calcium (8.4-10.2) mg/dL Total Bilirubin (0.2-1.3) mg/dL AST (17-59) U/L ALT (21-72) U/L Alkaline Phosphatase (38-126) U/L Total Protein (6.3-8.2) g/dL Albumin (3.5-5.0) g/dL Amylase (30-110) U/L Lipase (23-300) U/L Urine Color Urine Appearance (Clear) Urine pH (5.0-8.0) Ur Specific [place] (1.001-1.035) Urine Protein (Negative) Urine Glucose (UA) (Negative) Urine Ketones (Negative) Urine Blood (Negative) Urine Nitrite (Negative) Urine Bilirubin (Negative) Urine Urobilinogen (<2.0) mg/dL Ur Leukocyte Esterase (Negative) - Radiology Data Two-view x-ray of the abdomen is obtained. Report was reviewed in its entirety. Impression by Dr. Lopez shows nonacute abdomen. No adverse change compared to old exam. CT abdomen and pelvis with contrast was obtained. Report was reviewed in its entirety. Impression by Dr. papo pettit and shows cystic structure which appears to be arising from the superior aspect of the body of the pancreas. 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 Similar finding was noted in the previous study as discussed above. Very minimal stranding is noted about the pancreatic head suggestive of probable early acute pancreatitis. Clinical correlation is advised. (Cindy Powell) Disposition Decision to Admit Reason: Admit from EC Decision Date: 10/30/18 Decision Time: 23:47 <Cindy Powell - Last Filed: 10/31/18 00:12> <Anika Grossman - Last Filed: 10/31/18 21:34> Clinical Impression: Pancreatitis, Abdominal pain Disposition: ADMITTED IP TO THIS [facility] Condition: Serious
--- NOTE | 2018-10-30 21:09 | XR ---
EXAMINATION TYPE: XR KUB DATE OF EXAM: 10/30/2018 COMPARISON: 11/06/2016 HISTORY: Abdominal pain TECHNIQUE: 2 views upright FINDINGS: There is no sign of intestinal obstruction or pneumoperitoneum. Fecal pattern is normal. Th ere is previous lumbar spine posterior fusion surgery. There is right hip prosthesis. There are clips from cholecystectomy. IMPRESSION: Nonacute abdomen. No adverse change compared to old exam.
[2018-10-30 21:20] LABS: Basophils # (A) 0.1 k/uL (0-0.2); Basophils % (A) 0 %; Eosinophils # (A) 0.1 k/uL (0-0.7); Eosinophils % (A) 1 %; HCT 44.4 % (39.0-53.0); HGB 15.2 gm/dL (13.0-17.5); Lymphocytes # (A) 2.6 k/uL (1.0-4.8); Lymphocytes % (A) 23 %; MCH 30.6 pg (25.0-35.0); MCHC 34.1 g/dL (31.0-37.0); MCV 89.6 fL (80.0-100.0); Mean Platelet Volume 7.2; Monocytes # (A) 0.6 k/uL (0-1.0); Monocytes % (A) 5 %; Neutrophils # (A) 7.9 k/uL (1.3-7.7); Neutrophils % (A) 69 %; Platelet Count 200 k/uL (150-450); RBC 4.95 m/uL (4.30-5.90); RDW 13.9 % (11.5-15.5); WBC 11.4 k/uL (3.8-10.6)
[2018-10-30 21:25] LABS: ALT 24 U/L (21-72); AST 24 U/L (17-59); African American GFR (CKD) >90 (>60 ml/min/1.73 sqM); Albumin 4.7 g/dL (3.5-5.0); Alkaline Phosphatase 51 U/L (38-126); Amylase 56 U/L (30-110); Anion Gap 9 mmol/L; Blood Urea Nitrogen 15 mg/dL (9-20); Calcium 10.6 mg/dL (8.4-10.2); Carbon Dioxide 32 mmol/L (22-30); Chloride 93 mmol/L (98-107); Glucose 312 mg/dL (74-99); Potassium 4.1 mmol/L (3.5-5.1); Sodium 134 mmol/L (137-145); Total Bilirubin 0.8 mg/dL (0.2-1.3); Total Protein 7.7 g/dL (6.3-8.2)
--- NOTE | 2018-10-30 22:26 | CT ---
EXAM: CT Abdomen and Pelvis With Intravenous Contrast CLINICAL HISTORY: Abdominal pain. Reason: Pain TECHNIQUE: Axial computed tomography images of the abdomen and pelvis with intravenous contrast. CTDI is 36.5 mGy and DLP is 7-6.4 mGy-cm. This CT exam was performed using one or more of the following dose reduction techniques: automated exposure control, adjustment of the mA and/or kV according to patient size, and/or use of iterative reconstruction technique. COMPARISON: 10/01/2016. FINDINGS: Lung bases: Minimal subsegmental atelectasis at the left lung base. ABDOMEN: Liver: Unremarkable. No mass. Gallbladder and bile ducts: The patient is status post cholecystectomy. No ductal dilation. Pancreas: Very minimal inflammatory changes are noted about the pancreatic head suggestive of early acute pancreatitis. Correlation with laboratory values and clinical correlation are advised. No ductal dilation. Spleen: Unremarkable. No splenomegaly. Adrenals: Unremarkable. No mass. Kidneys and ureters: Unremarkable. No solid mass. No hydronephrosis. Stomach and bowel: A 3.9 x 2.5 Teddy or cystic structure is noted arising from the superior aspect of the pancreatic body and located just beneath the stomach most likely pancreatic pseudocyst. Less likely etiology is a gastric diverticulum. Finding is similar to that noted on the previous study. No obstruction. No mucosal thickening. PELVIS: Appendix: Appendicoliths are noted. No inflammatory changes about the appendix which is best visualized on series 202 image 36. Bladder: Unremarkable. No mass. Reproductive: Unremarkable as visualized. ABDOMEN and PELVIS: Intraperitoneal space: Unremarkable. No free air. No significant fluid collection. Bones/joints: Moderate degenerative disc disease of the spinal column is noted. Postsurgical changes of the lower lumbar spine are noted. Total right hip prosthesis is noted in place with streak artifact which limits evaluation. No acute fracture. No dislocation. Soft tissues: Unremarkable. Vasculature: 0.5 cm probable left adrenal adenoma. Atherosclerotic disease of the abdominal aorta is noted without aneurysmal dilatation. Lymph nodes: Unremarkable. No enlarged lymph nodes. IMPRESSION: There is a cystic structure which appears to be arising from the superior aspect of the body of the pancreas. Finding is most likely a chronic pseudocyst. Similar finding was noted on the previous study as discussed above. Very minimal stranding is noted about the pancreatic head suggestive of probable early acute pancreatitis. Clinical correlation is advised. Please see above discussion.
[2018-10-30 22:48] LABS: Appearance,Urine Clear (Clear); Bilirubin,Urine Negative (Negative); Blood,Urine Negative (Negative); Color,Urine Yellow; Glucose,Urine (UA) 4+ (Negative); Ketones,Urine Negative (Negative); Leukocyte Esterase,Urine Negative (Negative); Nitrite,Urine Negative (Negative); PH, Urine 6.5 (5.0-8.0); Protein,Urine Trace (Negative); Specific Gravity,Urine 1.021 (1.001-1.035); Urobilinogen,Urine <2.0 mg/dL (<2.0)
[2018-10-30] MEDS ORDERED: NALOXONE 0.4 MG/ML 1 ML VIAL IV PRN (23:45)
[2018-10-30] MEDS ORDERED: ACETAMINOPHEN TAB 325 MG TAB PO PRN (23:45)
[2018-10-30] MEDS ORDERED: ONDANSETRON 4 MG/2 ML VIAL IVP PRN (23:45)
[2018-10-30] MEDS: SODIUM CHLORIDE 0.9% 1,000 ML IV SCH (23:57)
[2018-10-31 00:08] LABS: Glucose,Whole Blood 265 mg/dL (75-99)
[2018-10-31] MEDS ORDERED: INSULIN ASPART (NovoLOG) 100 UNIT/ML VIAL SQ ONE (00:08)
[2018-10-31] MEDS: HYDROmorphone 1 MG/ML 1 ML SYRINGE IVP PRN ×5 (02:44→20:33)
[2018-10-31] MEDS: KETOROLAC 30 MG/ML 1 ML VIAL IVP PRN ×2 (05:52→14:53)
[2018-10-31] MEDS: SODIUM CHLORIDE 0.9% 1,000 ML IV SCH ×3 (07:28→20:33)
[2018-10-31 08:15] LABS: Glucose,Whole Blood 162 mg/dL (75-99)
[2018-10-31] MEDS: INSULIN ASPART (NovoLOG) 100 UNIT/ML VIAL SQ SCH ×4 (09:29→20:50)
[2018-10-31 10:32] LABS: Basophils # (A) 0.1 k/uL (0-0.2); Basophils % (A) 1 %; Eosinophils # (A) 0.3 k/uL (0-0.7); Eosinophils % (A) 2 %; HCT 42.3 % (39.0-53.0); HGB 14.3 gm/dL (13.0-17.5); Lymphocytes # (A) 3.4 k/uL (1.0-4.8); Lymphocytes % (A) 30 %; MCH 30.6 pg (25.0-35.0); MCHC 33.9 g/dL (31.0-37.0); MCV 90.3 fL (80.0-100.0); Mean Platelet Volume 7.3; Monocytes # (A) 0.6 k/uL (0-1.0); Monocytes % (A) 5 %; Neutrophils # (A) 6.8 k/uL (1.3-7.7); Neutrophils % (A) 60 %; Platelet Count 187 k/uL (150-450); RBC 4.68 m/uL (4.30-5.90); RDW 14.2 % (11.5-15.5); WBC 11.3 k/uL (3.8-10.6)
[2018-10-31 10:43] LABS: ALT 29 U/L (21-72); AST 38 U/L (17-59); African American GFR (CKD) >90 (>60 ml/min/1.73 sqM); Alkaline Phosphatase 50 U/L (38-126); Anion Gap 9 mmol/L; Blood Urea Nitrogen 15 mg/dL (9-20); Calcium 9.3 mg/dL (8.4-10.2); Carbon Dioxide 30 mmol/L (22-30); Chloride 98 mmol/L (98-107); Glucose 174 mg/dL (74-99); Potassium 3.6 mmol/L (3.5-5.1); Sodium 137 mmol/L (137-145); Total Bilirubin 0.8 mg/dL (0.2-1.3); Total Protein 6.8 g/dL (6.3-8.2)
[2018-10-31 11:30] LABS: Glucose,Whole Blood 174 mg/dL (75-99)
[2018-10-31] MEDS ORDERED: DICYCLOMINE 20 MG TAB PO PRN (13:35)
[2018-10-31] MEDS ORDERED: ALBUTEROL NEBULIZED 2.5 MG/3 ML INHALATION PRN (13:35)
[2018-10-31] MEDS ORDERED: ONDANSETRON ODT 8 MG TAB.RAPDIS PO PRN (13:35)
[2018-10-31] MEDS ORDERED: Insulin Aspart (For Pump) 100 UNIT/ML VIAL SQ-PUMP SCH (13:45)
[2018-10-31] MEDS: INSULIN DETEMIR (LEVEMIR) 100 UNIT/ML SYR SQ SCH (14:48)
[2018-10-31] MEDS: METOPROLOL TARTRATE 25 MG TAB PO SCH ×2 (14:53→21:07)
[2018-10-31] MEDS: GABAPENTIN 300 MG CAP PO SCH ×2 (14:53→20:50)
[2018-10-31] MEDS: PANTOPRAZOLE 40 MG TABLET PO SCH (14:53)
[2018-10-31] MEDS: FENOFIBRATE 160 MG TAB PO SCH (14:54)
[2018-10-31] MEDS: amLODIPine 5 MG TAB PO SCH (14:54)
[2018-10-31] MEDS: MELOXICAM 7.5 MG TAB PO SCH ×2 (14:54→21:08)
[2018-10-31] MEDS: MUPIROCIN 2% OINT 22 GM TUBE NASAL SCH ×2 (15:06→21:05)
[2018-10-31 16:34] LABS: Glucose,Whole Blood 170 mg/dL (75-99)
--- NOTE | 2018-10-31 17:05 | P.HPIM ---
History of Present Illness H&P Date: 10/31/18 Chief Complaint: Abdominal pain History of presenting complaint: This is a 53-year-old patient who follows with Dr. thomas from [place]. Chronic stable medical conditions include cavity is mellitus type II on insulin pump. Patient is awaiting a new pump hence is using Levemir currently. Other chronic stable medical conditions include GERD, hypertension, obstructive sleep apnea uses CPAP, bipolar disorder and chronic low back pain. About 4 days ago patient started of with pain that became severe across the upper abdomen. Did not radiate anywhere. Patient is having bouts of vomiting 2. There are no fever no chills. For 2 days patient also had some diarrhea. And decided to come in. Patient's last vomited 2 days ago. Patient also had some diarrhea but there is no blood. Since he came to the hospital overnight patient is already further vomiting. Patient also slept well. As he did not slept bilateral home. Review of systems: GEN.: Tired EYES: None HEENT: None NECK: None RESPIRATORY: Occasional wheezing CARDIOVASCULAR: None GASTROINTESTINAL: As above GENITOURINARY: None MUSCULOSKELETAL: Chronic back pain LYMPHATICS: None HEMATOLOGICAL: None PSYCHIATRY: None NEUROLOGICAL: None Past medical history: Diabetes on insulin pump currently on Levemir air awaiting a new pump, GERD, hypertension, primary osteoarthritis, sleep apnea uses CPAP, arthritis of the lumbar spine, pancreatitis, Social history: Lives with his roommate and a pet dog. Has a BiPAP at home. Patient be smoking over 35 years, currently half a pack a day. Did have or. Abuse in the past 4 years ago. Has not had any alcohol for 2 years. Family history: Hypertension Physical examination: VITAL SIGNS: 99.5, 108, 20, 120/78, 98% room air GENERAL: BMI 31.7, laying in bed appears comfortable. EYES: Pupils equal. Conjunctiva normal. HEENT: External appearance of nose and ears normal, oral cavity grossly normal. NECK: JVD not raised; masses not palpable. HEART: First and second heart sounds are normal; no edema. LUNGS: Respiratory rate normal; clear to auscultation. ABDOMEN: Soft, minimal epigastric tenderness, no guarding rigidity, liver spleen not palpable, no masses palpable. PSYCH: Alert and oriented x3; mood and affect normal. NEUROLOGICAL: Cranial nerves grossly intact; no facial asymmetry, power and sensation grossly intact. LYMPHATICS: No lymph nodes palpable in the axilla and neck INVESTIGATIONS, reviewed in the clinical context: White count 9.4 hemoglobin 15.2 potassium 4.1 creatinine 1.03 Amylase lipase both normal Computed tomography scan of the abdomen shows some evidence of mild pancreatitis and a possible chronic small pseudocyst Assessment: -Acute and chronic pancreatitis, with normal pancreatic enzymes with some clin ical improvement -Chronic small pseudocyst -Diabetes mellitus type 2 chronically insulin pump currently on insulin -GERD -Essential hypertension -Obstructive sleep apnea uses a BiPAP machine -Bipolar disorder -Chronic low back pain -Obesity BMI 31.7 -Chronic nicotine dependence patient cigarette smoker Plan: Patient was initially made nothing by mouth. Has had no further vomiting after about 12 hours. We will try the patient on clear liquids. Resumed on home dose of Lantus to with the decreased dose. Other home medications resumed. Patient was given IV Dilaudid from the ER. We'll DC that as a cause significant nausea. Clinically patient is greatly improved was very comfortable when I saw this patient does earlier today. This was also noted by the nurse. Patient encouraged is to be out of bed. Accu-Cheks will be followed. 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, pancreatitis History of Any Multi-Drug Resistant Organisms: MRSA Date of last positivie culture/infection: 11/03/08 MDRO Source:: spine Past Surgical History: Cholecystectomy Additional Past Surgical History / Comment(s): spinal fusion at L4 and L5, pancreatic surgery for pseudocyst w/stent Past Anesthesia/Blood Transfusion Reactions: No Reported Reaction Past Psychological History: Anxiety, Bipolar, Depression Smoking Status: Current every day smoker Past Alcohol Use History: None Reported Additional Past Alcohol Use History / Comment(s): 1/2 ppd - Past Family History Mother Family Medical History: Hypertension Additional Family Medical History / Comment(s): Pt states mother had no health problems. Father Family Medical History: No Reported History Additional Family Medical History / Comment(s): pt stated his father is - had no medicals problems and of natural causes. Medications and Allergies Home Medications Medication Instructions Recorded Confirmed Type Fenofibrate Nanocrystallized 145 mg PO DAILY 06/06/14 08/30/19 History [Fenofibrate] Metoprolol Tartrate [Lopressor] 25 mg PO BID 08/07/13 10/31/18 History Montelukast [Singulair] 10 mg PO HS 08/07/13 10/31/18 History Pravastatin Sodium [Pravachol] 40 mg PO HS 08/07/13 10/31/18 History QUEtiapine FUMARATE [SEROquel] 300 mg PO QAM 10/01/16 10/31/18 History lamoTRIgine 200 mg PO HS 10/01/16 10/31/18 History traZODone HCL 150 mg PO HS 10/01/16 10/31/18 History Albuterol Inhaler [Ventolin Hfa 1 - 2 puff INHALATION RT-Q6H PRN 10/22/16 10/31/18 History Inhaler] Multivitamins, Thera [Multivitamin 1 tab PO DAILY 10/22/16 10/31/18 History (formulary)] amLODIPine [Norvasc] 5 mg PO DAILY 10/22/16 10/31/18 History Dicyclomine [Bentyl] 20 mg PO QID PRN #30 tablet 11/06/16 10/31/18 Rx Omeprazole [PriLOSEC] 40 mg PO DAILY #30 capsule. 11/06/16 10/31/18 Rx Ondansetron [Zofran ODT] 8 mg PO Q8HR PRN #12 tab 11/06/16 10/31/18 Rx Mupirocin 2% Oint [Bactroban 2% 1 applic NASAL TID #15 gm 10/10/17 10/31/18 Rx Oint] Insulin Aspart (For Pump) [NovoLOG 0.01 unit SQ-PUMP CONTINUOUS 10/23/17 10/31/18 History (For Pump)] Meloxicam [Mobic] 7.5 mg PO BID 10/23/17 10/31/18 History Aspirin 325 mg PO BID #60 tab 10/29/17 10/31/18 Rx Ergocalciferol [Vitamin D2] 50,000 unit PO Q7D 10/31/18 10/31/18 History Gabapentin [Neurontin] 300 mg PO BID 10/31/18 10/31/18 History Insulin Glargine,Hum.rec.anlog 50 unit SQ DAILY 10/31/18 10/31/18 History [Basaglar Kwikpen U-100] Melatonin 10 mg PO HS 10/31/18 10/31/18 History Allergies Allergy/AdvReac Type Severity Reaction Status Date / Time haloperidol [From Haldol] AdvReac Hallucinati Verified 10/31/18 10:53 ons haloperidol lactate AdvReac Hallucinati Verified 10/31/18 10:53 [From Haldol] ons Physical Exam Vitals: Vital Signs Temp Pulse Pulse Resp BP BP Pulse Ox 10/31/18 14:46 98.5 F 99 16 138/89 95 10/31/18 08:00 84 16 10/31/18 07:00 98.5 F 84 16 159/92 97 10/31/18 02:19 99.0 F 90 18 143/89 94 L 10/31/18 02:06 95 18 141/94 96 10/31/18 00:01 52 L 16 161/98 95 10/30/18 22:00 88 20 132/56 99 10/30/18 21:00 92 20 132/59 99 10/30/18 19:38 99.5 F 108 H 20 120/78 98 Intake and Output 10/31/18 10/31/18 10/31/18 06:59 14:59 22:59 Other: Voiding Method Toilet Toilet # Voids 2 2 Results CBC & Chem 7: 10/31/18 10:12 10/31/18 10:12 Labs: Abnormal Lab Results - Last 24 Hours (Table) 10/30/18 10/30/18 10/30/18 Range/Units 20:50 20:50 22:20 WBC 11.4 H (3.8-10.6) k/uL Neutrophils # 7.9 H (1.3-7.7) k/uL Sodium 134 L (137-145) mmol/L Chloride 93 L (98-107) mmol/L Carbon Dioxide 32 H (22-30) mmol/L Glucose 312 H (74-99) mg/dL POC Glucose (mg/dL) (75-99) mg/dL Calcium 10.6 H (8.4-10.2) mg/dL Urine Protein Trace H (Negative) Urine Glucose (UA) 4+ H (Negative) 10/31/18 10/31/18 10/31/18 Range/Units 00:00 08:14 10:12 WBC 11.3 H (3.8-10.6) k/uL Neutrophils # (1.3-7.7) k/uL Sodium (137-145) mmol/L Chloride (98-107) mmol/L Carbon Dioxide (22-30) mmol/L Glucose (74-99) mg/dL POC Glucose (mg/dL) 265 H 162 H (75-99) mg/dL Calcium (8.4-10.2) mg/dL Urine Protein (Negative) Urine Glucose (UA) (Negative) 10/31/18 10/31/18 10/31/18 Range/Units 10:12 11:29 16:32 WBC (3.8-10.6) k/uL Neutrophils # (1.3-7.7) k/uL Sodium (137-145) mmol/L Chloride (98-107) mmol/L Carbon Dioxide (22-30) mmol/L Glucose 174 H (74-99) mg/dL POC Glucose (mg/dL) 174 H 170 H (75-99) mg/dL Calcium (8.4-10.2) mg/dL Urine Protein (Negative) Urine Glucose (UA) (Negative) Thrombosis Risk Factor Assmnt - Choose All That Apply Each Factor Represents 1 point: Age 41-60 years, Obesity (BMI >25) Thrombosis Risk Factor Assessment Total Risk Factor Score: 2 Thrombosis Risk Factor Assessment Level: Low Risk
[2018-10-31] MEDS: ASPIRIN 325 MG TAB PO SCH (20:36)
[2018-10-31 20:39] LABS: Glucose,Whole Blood 264 mg/dL (75-99)
[2018-10-31] MEDS ORDERED: traZODone HCL 50 MG TAB PO SCH (21:00)
[2018-10-31] MEDS ORDERED: PRAVASTATIN SODIUM 40 MG TAB PO SCH (21:00)
[2018-10-31] MEDS ORDERED: MONTELUKAST 10 MG TAB PO SCH (21:00)
[2018-10-31] MEDS ORDERED: MELATONIN 5 MG TABLET PO SCH (21:00)
[2018-10-31] MEDS ORDERED: lamoTRIgine 100 MG TAB PO SCH (21:00)
[2018-11-01] MEDS: HYDROmorphone 1 MG/ML 1 ML SYRINGE IVP PRN ×4 (00:04→16:27)
[2018-11-01] MEDS: SODIUM CHLORIDE 0.9% 1,000 ML IV SCH ×3 (01:45→16:29)
[2018-11-01] MEDS: KETOROLAC 30 MG/ML 1 ML VIAL IVP PRN (01:55)
[2018-11-01 07:00] LABS: Glucose,Whole Blood 226 mg/dL (75-99)
[2018-11-01] MEDS: INSULIN DETEMIR (LEVEMIR) 100 UNIT/ML SYR SQ SCH (07:45)
[2018-11-01] MEDS: MUPIROCIN 2% OINT 22 GM TUBE NASAL SCH ×2 (07:46→16:37)
[2018-11-01] MEDS: INSULIN ASPART (NovoLOG) 100 UNIT/ML VIAL SQ SCH ×3 (07:47→17:27)
[2018-11-01] MEDS: METOPROLOL TARTRATE 25 MG TAB PO SCH (07:48)
[2018-11-01] MEDS: amLODIPine 5 MG TAB PO SCH (07:48)
[2018-11-01] MEDS: PANTOPRAZOLE 40 MG TABLET PO SCH (07:48)
[2018-11-01] MEDS: FENOFIBRATE 160 MG TAB PO SCH (07:48)
[2018-11-01] MEDS: ASPIRIN 325 MG TAB PO SCH (07:48)
[2018-11-01] MEDS: GABAPENTIN 300 MG CAP PO SCH (07:49)
[2018-11-01] MEDS: MELOXICAM 7.5 MG TAB PO SCH (07:49)
[2018-11-01] MEDS ORDERED: QUEtiapine 200 MG TAB PO SCH (09:00)
[2018-11-01] MEDS ORDERED: MULTIVITAMINS, THERA 1 EACH TAB PO SCH (09:00)
[2018-11-01 12:12] LABS: Glucose,Whole Blood 223 mg/dL (75-99)
[2018-11-01 15:55] VITALS: BP 120/77; PULSE 78; RESP 17; TEMP 98.4
[2018-11-01 17:01] LABS: Glucose,Whole Blood 166 mg/dL (75-99)
--- NOTE | 2018-11-01 21:57 | P.DS ---
Providers Date of admission: 10/31/18 00:46 Expected date of discharge: 11/01/18 Attending physician: Guy Mendoza Primary care physician: Jordon Wood [facility] Course: Hospital course: This is a 53-year-old patient who follows with Dr. wood from [place]. Chronic stable medical conditions include cavity is mellitus type II on insulin pump. Patient is awaiting a new pump hence is using Levemir currently. Other chronic stable medical conditions include GERD, hypertension, obstructive sleep apnea uses CPAP, bipolar disorder and chronic low back pain. About 4 days ago patient started of with pain that became severe across the upper abdomen. Did not radiate anywhere. Patient is having bouts of vomiting 2. There are no fever no chills. For 2 days patient also had some diarrhea. And decided to come in. Patient's last vomited 2 days ago. Patient also had some diarrhea but there is no blood. Since he came to the hospital overnight patient is already further vomiting. Patient also slept well. As he did not slept well at home. Patient says symptoms completely resolved. Doing well today. Regarding a regular diet. Up and about. Patient is currently on Levemir has is awaiting a new insulin pump. Care was discussed with the patient. Physical examination: VITAL SIGNS: 98.4, 78, 17, 120/77, and the 100% on BiPAP GENERAL: BMI 31.7, laying in bed appears comfortable. EYES: Pupils equal. Conjunctiva normal. HEENT: External appearance of nose and ears normal, oral cavity grossly normal. NECK: JVD not raised; masses not palpable. HEART: First and second heart sounds are normal; no edema. LUNGS: Respiratory rate normal; clear to auscultation. ABDOMEN: Soft, minimal epigastric tenderness, no guarding rigidity, liver spleen not palpable, no masses palpable. PSYCH: Alert and oriented x3; mood and affect normal. INVESTIGATIONS, reviewed in the clinical context: White count 9.4 hemoglobin 15.2 potassium 4.1 creatinine 1.03 Amylase lipase both normal Computed tomography scan of the abdomen shows some evidence of mild pancreatitis and a possible chronic small pseudocyst Assessment: -Acute on chronic pancreatitis, with normal pancreatic enzymes -Chronic small pseudocyst -Diabetes mellitus type 2 chronically insulin pump currently on insulin -GERD -Essential hypertension -Obstructive sleep apnea uses a BiPAP machine -Bipolar disorder -Chronic low back pain -Obesity BMI 31.7 -Chronic nicotine dependence patient cigarette smoker Plan: Disposition home Patient Condition at Discharge: Stable Plan - Discharge Summary Discharge Rx Participant: Yes New Discharge Prescriptions: New Acetaminophen Tab [Tylenol] 650 mg PO Q6HR PRN tab PRN Reason: Mild Pain Or Fever > 100.5 Continue Fenofibrate Nanocrystallized [Fenofibrate] 145 mg PO DAILY Pravastatin Sodium [Pravachol] 40 mg PO HS Montelukast [Singulair] 10 mg PO HS Metoprolol Tartrate [Lopressor] 25 mg PO BID QUEtiapine FUMARATE [SEROquel] 300 mg PO QAM traZODone HCL 150 mg PO HS lamoTRIgine 200 mg PO HS Albuterol Inhaler [Ventolin Hfa Inhaler] 1 - 2 puff INHALATION RT-Q6H PRN PRN Reason: Shortness Of Breath amLODIPine [Norvasc] 5 mg PO DAILY Multivitamins, Thera [Multivitamin (formulary)] 1 tab PO DAILY Dicyclomine [Bentyl] 20 mg PO QID PRN #30 tablet PRN Reason: Pain Omeprazole [PriLOSEC] 40 mg PO DAILY #30 capsule. Ondansetron [Zofran ODT] 8 mg PO Q8HR PRN #12 tab PRN Reason: Nausea Mupirocin 2% Oint [Bactroban 2% Oint] 1 applic NASAL TID #15 gm Meloxicam [Mobic] 7.5 mg PO BID Aspirin 325 mg PO BID #60 tab Ergocalciferol [Vitamin D2 (DRISDOL)] 50,000 unit PO Q7D Gabapentin [Neurontin] 300 mg PO BID Insulin Glargine,Hum.rec.anlog [Basaglar Kwikpen U-100] 50 unit SQ DAILY Melatonin 10 mg PO HS Discontinued Insulin Aspart (For Pump) [NovoLOG (For Pump)] 0.01 unit SQ-PUMP CONTINUOUS Discharge Medication List Fenofibrate Nanocrystallized [Fenofibrate] 145 mg PO DAILY 08/07/13 [History] Metoprolol Tartrate [Lopressor] 25 mg PO BID 08/07/13 [History] Montelukast [Singulair] 10 mg PO HS 08/07/13 [History] Pravastatin Sodium [Pravachol] 40 mg PO HS 08/07/13 [History] QUEtiapine FUMARATE [SEROquel] 300 mg PO QAM 10/01/16 [History] lamoTRIgine 200 mg PO HS 10/01/16 [History] traZODone HCL 150 mg PO HS 10/01/16 [History] Albuterol Inhaler [Ventolin Hfa Inhaler] 1 - 2 puff INHALATION RT-Q6H PRN 10/22/16 [History] Multivitamins, Thera [Multivitamin (formulary)] 1 tab PO DAILY 10/22/16 [History] amLODIPine [Norvasc] 5 mg PO DAILY 10/22/16 [History] Dicyclomine [Bentyl] 20 mg PO QID PRN #30 tablet 11/06/16 [Rx] Omeprazole [PriLOSEC] 40 mg PO DAILY #30 capsule.dr 11/06/16 [Rx] Ondansetron [Zofran ODT] 8 mg PO Q8HR PRN #12 tab 11/06/16 [Rx] Mupirocin 2% Oint [Bactroban 2% Oint] 1 applic NASAL TID #15 gm 10/10/17 [Rx] Meloxicam [Mobic] 7.5 mg PO BID 10/23/17 [History] Aspirin 325 mg PO BID #60 tab 10/29/17 [Rx] Ergocalciferol [Vitamin D2 (DRISDOL)] 50,000 unit PO Q7D 10/31/18 [History] Gabapentin [Neurontin] 300 mg PO BID 10/31/18 [History] Insulin Glargine,Hum.rec.anlog [Basaglar Kwikpen U-100] 50 unit SQ DAILY 10/31/18 [History] Melatonin 10 mg PO HS 10/31/18 [History] Acetaminophen Tab [Tylenol] 650 mg PO Q6HR PRN tab 11/01/18 [Rx] Follow up Appointment(s)/Referral(s): Jordon Wood MD [Primary Care Provider] - 1-2 days (office closed at time of discharge please call to make appointment) Patient Instructions/Handouts: Pancreatitis (DC) Activity/Diet/Wound Care/Special Instructions: diabetic soft bland diet Discharge Disposition: HOME SELF-CARE
== END 2018-11-01 17:49 | disposition home or self-care (01) | DRG 439 ==
LOC: EC 19:32 → 4SSUR 10-31 00:46 → UNDOADMOB 10-31 00:46 → 4SSUR 10-31 00:46
PROVIDERS: ADMIT Hospitalist; ATTEND Hospitalist
DX: K85.90 Acute pancreatitis without necrosis or infection, unspecified (principal); K86.3 Pseudocyst of pancreas; K86.1 Other chronic pancreatitis; E11.65 Type 2 diabetes mellitus with hyperglycemia; E66.9 Obesity, unspecified; Z68.31 Body mass index [BMI] 31.0-31.9, adult; F17.210 Nicotine dependence, cigarettes, uncomplicated; F31.9 Bipolar disorder, unspecified; F41.9 Anxiety disorder, unspecified; G47.33 Obstructive sleep apnea (adult) (pediatric); G89.29 Other chronic pain; I10 Essential (primary) hypertension; K21.9 Gastro-esophageal reflux disease without esophagitis; Z79.1 Long term (current) use of non-steroidal anti-inflammatories (NSAID); Z79.4 Long term (current) use of insulin; Z79.82 Long term (current) use of aspirin; Z79.899 Other long term (current) drug therapy; Z82.49 Family history of ischemic heart disease and other diseases of the circulatory system; Z96.41 Presence of insulin pump (external) (internal); Z98.1 Arthrodesis status; Z99.89 Dependence on other enabling machines and devices; Z88.8 Allergy status to other drugs, medicaments and biological substances; M46.96 Unspecified inflammatory spondylopathy, lumbar region; R19.7 Diarrhea, unspecified
CPT/HCPCS: 36415; 74018; 74177; 80053; 81003; 82150; 83690; 85025; 94640; 96361; 96374; 96375; 96376; 99285

== ENCOUNTER 2018-11-04 09:57 | Emergency (ER) | payer MEDICARE ==
[2018-11-04] MEDS ORDERED: SODIUM CHLORIDE 0.9% 1,000 ML IV STA (10:22)
[2018-11-04] MEDS ORDERED: MAG HYDROX/AL HYDROX/SIMETH 30 ML, HYOSCYAMINE ELIXIR 10 ML, CIMETIDINE HCL 300 MG, LID... PO STA ×4 (10:22)
[2018-11-04] MEDS ORDERED: KETOROLAC 30 MG/ML 1 ML VIAL IVP STA (10:22)
[2018-11-04] MEDS ORDERED: FAMOTIDINE 20 MG/2 ML VIAL IV STA (10:22)
--- NOTE | 2018-11-04 10:36 | ED ---
General Adult HPI - General Chief complaint: Abdominal Pain Stated complaint: abd pain, headache Time Seen by Provider: 11/04/18 10:05 Source: patient, RN notes reviewed Mode of arrival: wheelchair - History of Present Illness Initial comments: 53-year-old male with a past medical history of IDDM, GERD, hypertension, pancreatitis presents to the emergency department for a chief complaint of abdominal pain. Patient states that he has had upper abdominal pain for about a week. States that a few days ago he was admitted for pancreatitis and this did improve somewhat during his hospital stay. However when he was discharged home after 2 day admission he started to have upper abdominal pain again. States this is consistent with previous bouts of pancreatitis. States he was diagnosed with a pancreatic pseudocyst. States she has not been able to eat or drink because he is afraid that this pain may worsen. Patient does have a history of cholecystectomy. Patient states is a history of alcoholism but has not drank for 6 years. States he used to drink a gallon of [place] every day for years. Patient has no other complaints at this time including shortness of breath, chest pain, nausea or vomiting, headache, or visual changes. - Related Data Home Medications Medication Instructions Recorded Confirmed Fenofibrate Nanocrystallized 145 mg PO DAILY 08/07/13 10/31/18 [Fenofibrate] Metoprolol Tartrate [Lopressor] 25 mg PO BID 08/07/13 10/31/18 Montelukast [Singulair] 10 mg PO HS 08/07/13 10/31/18 Pravastatin Sodium [Pravachol] 40 mg PO HS 08/07/13 10/31/18 QUEtiapine FUMARATE [SEROquel] 300 mg PO QA 10/01/16 10/31/18 lamoTRIgine 200 mg PO HS 10/01/16 10/31/18 traZODone HCL 150 mg PO HS 10/01/16 10/31/18 Albuterol Inhaler [Ventolin Hfa 1 - 2 puff INHALATION RT-Q6H PRN 10/22/16 10/31/18 Inhaler] Multivitamins, Thera [Multivitamin 1 tab PO DAILY 10/22/16 10/31/18 (formulary)] amLODIPine [Norvasc] 5 mg PO DAILY 10/22/16 10/31/18 Meloxicam [Mobic] 7.5 mg PO BID 10/23/17 10/31/18 Ergocalciferol [Vitamin D2 50,000 unit PO Q7D 10/31/18 10/31/18 (DRISDOL)] Gabapentin [Neurontin] 300 mg PO BID 10/31/18 10/31/18 Insulin Glargine,Hum.rec.anlog 50 unit SQ DAILY 10/31/18 10/31/18 [Basaglar Kwikpen U-100] Melatonin 10 mg PO HS 10/31/18 10/31/18 Previous Rx's Medication Instructions Recorded Dicyclomine [Bentyl] 20 mg PO QID PRN #30 tablet 11/06/16 Omeprazole [PriLOSEC] 40 mg PO DAILY #30 capsule.dr 11/06/16 Ondansetron [Zofran ODT] 8 mg PO Q8HR PRN #12 tab 11/06/16 Mupirocin 2% Oint [Bactroban 2% 1 applic NASAL TID #15 gm 10/10/17 Oint] Aspirin 325 mg PO BID #60 tab 10/29/17 Acetaminophen Tab [Tylenol] 650 mg PO Q6HR PRN tab 11/01/18 Allergies Allergy/AdvReac Type Severity Reaction Status Date / Time haloperidol [From Haldol] AdvReac Hallucinati Verified 10/31/18 10:53 ons haloperidol lactate AdvReac Hallucinati Verified 10/31/18 10:53 [From Haldol] ons Review of Systems ROS Statement: Those systems with pertinent positive or pertinent negative responses have been documented in the HPI. ROS Other: All systems not noted in ROS Statement are negative. Past Medical History Past Medical History: Diabetes Mellitus, GERD/Reflux, Hypertension, Osteoarthr itis (OA), Sleep Apnea/CPAP/BIPAP Additional Past Medical History / Comment(s): chronic back pain, uses BIPAP, osteomyolitis in spine after fusion surgery, pancreatitis History of Any Multi-Drug Resistant Organisms: MRSA Date of last positivie culture/infection: 11/03/08 MDRO Source:: spine Past Surgical History: Cholecystectomy Additional Past Surgical History / Comment(s): spinal fusion at L4 and L5, pancreatic surgery for pseudocyst w/stent Past Anesthesia/Blood Transfusion Reactions: No Reported Reaction Past Psychological History: Anxiety, Bipolar, Depression Smoking Status: Current every day smoker Past Alcohol Use History: None Reported Past Drug Use History: None Reported - Past Family History Mother Family Medical History: Hypertension Additional Family Medical History / Comment(s): Pt states mother had no health problems. Father Family Medical History: No Reported History Additional Family Medical History / Comment(s): pt stated his father is - had no medicals problems and of natural causes. General Exam General appearance: alert, in no apparent distress Head exam: Present: atraumatic, normocephalic, normal inspection Eye exam: Present: normal appearance, PERRL, EOMI. Absent: scleral icterus, conjunctival injection, periorbital swelling ENT exam: Present: normal exam, mucous membranes moist Neck exam: Present: normal inspection, full ROM. Absent: tenderness, meningismus, lymphadenopathy Respiratory exam: Present: normal lung sounds bilaterally. Absent: respiratory distress, wheezes, rales, rhonchi, stridor Cardiovascular Exam: Present: regular rate, normal rhythm, normal heart sounds. Absent: systolic murmur, diastolic murmur, rubs, gallop, clicks GI/Abdominal exam: Present: soft, tenderness (tenderness noted in the eipgastric and LUQ areas. no lower abdominal tenderness whatsoever), normal bowel sounds. Absent: distended, guarding, rebound, rigid Neurological exam: Present: alert Course Vital Signs 11/04/18 09:59 Temperature 98.2 F Pulse Rate 108 H Respiratory 18 Rate Blood Pressure 141/76 O2 Sat by Pulse 97 Oximetry - Reevaluation(s) Reevaluation #1: 11/04/18 10:39 53-year-old male with a past medical history of alcoholism currently sober for 6 years as well as pancreatitis presents for upper abdominal pain. Patient had recent admission for acute pancreatitis with normal pinprick enzymes. CT results from 10/30/2018 were reviewed and are as documented. Today patient pr esented for recurrence of pain. Exam did reveal epigastric tenderness. Medical Decision Making - Medical Decision Making CT obtained on 10/30/2018 shows very minimal inflammatory changes noted about the pancreatic head suggestive of early acute pancreatitis. Cystic structure noted which appears to be arising from the superior aspect of the body of the pancreas and most likely chronic pseudocyst. Similar finding was noted on previous study. Amylase and lipase were normal at that time. History was obtained from patient and documented in the HPI. Physical exam as documented and significant for epigastric and left upper quadrant tenderness. CBC is unremarkable. CMP does show a mild hypokalemia of 3.3, which was replaced by mouth. Patient also has a magnesium level of 1.1, given IV and oral magnesium. Urine and alcohol are negative. X-ray of the abdomen shows a nonobstructive bowel gas pattern. Amylase and lipase are normal. CT was reviewed from 10/30/2018 and is as documented. At this time we feel patient can follow up outpatient. He states he is supposed to follow-up with Dr. Suh. Pain did improve with pain medication. He will return here for any worsening symptoms. - Lab Data Result diagrams: 11/04/18 10:21 11/04/18 10:21 Lab Results 11/04/18 11/04/18 11/04/18 Range/Units 10:21 10:21 11:11 WBC 11.2 H (3.8-10.6) k/uL RBC 4.85 (4.30-5.90) m/uL Hgb 14.6 (13.0-17.5) gm/dL Hct 42.9 (39.0-53.0) % MCV 88.5 (80.0-100.0) fL MCH 30.2 (25.0-35.0) pg MCHC 34.1 (31.0-37.0) g/dL RDW 14.4 (11.5-15.5) % Plt Count 230 (150-450) k/uL Neutrophils % 72 % Lymphocytes % 20 % Monocytes % 4 % Eosinophils % 2 % Basophils % 0 % Neutrophils # 8.1 H (1.3-7.7) k/uL Lymphocytes # 2.3 (1.0-4.8) k/uL Monocytes # 0.5 (0-1.0) k/uL Eosinophils # 0.3 (0-0.7) k/uL Basophils # 0.0 (0-0.2) k/uL Sodium 134 L (137-145) mmol/L Potassium 3.3 L (3.5-5.1) mmol/L Chloride 97 L (98-107) mmol/L Carbon Dioxide 24 (22-30) mmol/L Anion Gap 13 mmol/L BUN 7 L (9-20) mg/dL Creatinine 0.83 (0.66-1.25) mg/dL Est GFR (CKD-EPI)AfAm >90 (>60 ml/min/1.73 sqM) Est GFR (CKD-EPI)NonAf >90 (>60 ml/min/1.73 sqM) Glucose 222 H (74-99) mg/dL Calcium 10.2 (8.4-10.2) mg/dL Magnesium 1.1 L (1.6-2.3) mg/dL Total Bilirubin 0.8 (0.2-1.3) mg/dL AST 27 (17-59) U/L ALT 31 (21-72) U/L Alkaline Phosphatase 47 (38-126) U/L Total Protein 7.3 (6.3-8.2) g/dL Albumin 4.3 (3.5-5.0) g/dL Amylase 41 (30-110) U/L Lipase 35 (23-300) U/L Urine Color Yellow Urine Appearance Clear (Clear) Urine pH 6.0 (5.0-8.0) Ur Specific [place] 1.008 (1.001-1.035) Urine Protein Negative (Negative) Urine Glucose (UA) Trace H (Negative) Urine Ketones Negative (Negative) Urine Blood Negative (Negative) Urine Nitrite Negative (Negative) Urine Bilirubin Negative (Negative) Urine Urobilinogen <2.0 (<2.0) mg/dL Ur Leukocyte Esterase Negative (Negative) Serum Alcohol <10 mg/dL Disposition Clinical Impression: Epigastric pain, History of pancreatitis, Hypomagnesemia Disposition: HOME SELF-CARE Condition: Good Instructions (If sedation given, give patient instructions): Pancreatitis (ED), Clear Liquid Diet (ED) Additional Instructions: Please follow up with primary care in 1-2 days to repeat blood work. Please follow up with GI as soon as possible. Try a clear liquid diet to see if that helps with your pain. If you have worsening symptoms return to the emergency department. Is patient prescribed a controlled substance at d/c from ED?: No Referrals: Jordon Wood MD [Primary Care Provider] - 1-2 days Sarai Lemos MD [STAFF PHYSICIAN] - 1-2 days Time of Disposition: 12:14
[2018-11-04 10:51] LABS: ALT 31 U/L (21-72); AST 27 U/L (17-59); African American GFR (CKD) >90 (>60 ml/min/1.73 sqM); Albumin 4.3 g/dL (3.5-5.0); Alcohol <10 mg/dL; Alkaline Phosphatase 47 U/L (38-126); Amylase 41 U/L (30-110); Anion Gap 13 mmol/L; Blood Urea Nitrogen 7 mg/dL (9-20); Calcium 10.2 mg/dL (8.4-10.2); Carbon Dioxide 24 mmol/L (22-30); Chloride 97 mmol/L (98-107); Glucose 222 mg/dL (74-99); Magnesium 1.1 mg/dL (1.6-2.3); Potassium 3.3 mmol/L (3.5-5.1); Sodium 134 mmol/L (137-145); Total Bilirubin 0.8 mg/dL (0.2-1.3); Total Protein 7.3 g/dL (6.3-8.2)
--- NOTE | 2018-11-04 11:07 | XR ---
EXAMINATION TYPE: XR abdomen 2V DATE OF EXAM: 11/04/2018 11:00 AM CLINICAL HISTORY: Abdominal pain, nausea, and vomiting TECHNIQUE: Upright and supine images of the abdomen were obtained. COMPARISON: 10/30/2018. FINDINGS: The lung bases are well aerated. Moderate degenerative changes of the spine with postsurgic al changes of the lower lumbar spine and right hip. Surgical clips are seen within the right mid abdo men and right hemipelvis. Moderate degenerative changes of the left hip are seen. No dilated large or small bowel. No pneumoperitoneum. No abnormal calcifications in the abdomen or pelvis. IMPRESSION: Nonobstructive bowel gas pattern.
[2018-11-04 11:13] LABS: Basophils % (A) 0 %; Eosinophils # (A) 0.3 k/uL (0-0.7); Eosinophils % (A) 2 %; HCT 42.9 % (39.0-53.0); HGB 14.6 gm/dL (13.0-17.5); Lymphocytes # (A) 2.3 k/uL (1.0-4.8); Lymphocytes % (A) 20 %; MCH 30.2 pg (25.0-35.0); MCHC 34.1 g/dL (31.0-37.0); MCV 88.5 fL (80.0-100.0); Mean Platelet Volume 7.5; Monocytes # (A) 0.5 k/uL (0-1.0); Monocytes % (A) 4 %; Neutrophils # (A) 8.1 k/uL (1.3-7.7); Neutrophils % (A) 72 %; Platelet Count 230 k/uL (150-450); RBC 4.85 m/uL (4.30-5.90); RDW 14.4 % (11.5-15.5); WBC 11.2 k/uL (3.8-10.6)
[2018-11-04] MEDS ORDERED: MAGNESIUM SULFATE-D5W PMX 1 GM in DEXTROSE/WATER 1 100ML.BAG IVPB ONE (11:20)
[2018-11-04 11:22] LABS: Appearance,Urine Clear (Clear); Bilirubin,Urine Negative (Negative); Blood,Urine Negative (Negative); Color,Urine Yellow; Glucose,Urine (UA) Trace (Negative); Ketones,Urine Negative (Negative); Leukocyte Esterase,Urine Negative (Negative); Nitrite,Urine Negative (Negative); Protein,Urine Negative (Negative); Specific Gravity,Urine 1.008 (1.001-1.035); Urobilinogen,Urine <2.0 mg/dL (<2.0)
[2018-11-04] MEDS ORDERED: POTASSIUM CHLORIDE ER 20 MEQ TAB.ER PO STA (11:27)
[2018-11-04] MEDS ORDERED: MAGNESIUM OXIDE 400 MG TAB PO STA (11:27)
[2018-11-04] MEDS ORDERED: ONDANSETRON 4 MG/2 ML VIAL IVP STA (11:35)
[2018-11-04] MEDS ORDERED: MORPHINE SULFATE 4 MG/ML SYRINGE IVP STA (11:35)
[2018-11-04 14:12] VITALS: BP 136/82; PULSE 81; RESP 16; TEMP 98.3
== END 2018-11-04 13:30 | disposition home or self-care (01) ==
LOC: EC 09:57
DX: E83.42 Hypomagnesemia (principal); R10.13 Epigastric pain; E87.6 Hypokalemia; R10.812 Left upper quadrant abdominal tenderness; R10.816 Epigastric abdominal tenderness; E11.9 Type 2 diabetes mellitus without complications; I10 Essential (primary) hypertension; G47.30 Sleep apnea, unspecified; F41.9 Anxiety disorder, unspecified; F31.9 Bipolar disorder, unspecified; F17.200 Nicotine dependence, unspecified, uncomplicated; Z79.4 Long term (current) use of insulin; Z79.1 Long term (current) use of non-steroidal anti-inflammatories (NSAID); Z79.899 Other long term (current) drug therapy; Z88.8 Allergy status to other drugs, medicaments and biological substances; Z90.49 Acquired absence of other specified parts of digestive tract; Z98.1 Arthrodesis status
CPT/HCPCS: 99284; 36415; 80053; 82150; 83690; 83735; 85025; 81003; 74019; 96365; 96375 ×4; 96361; G0480; J2270; J2405; J1885; J3475; 80320

== ENCOUNTER → 2019-03-26 | Outpatient (CLI) | payer MEDICARE, OTHER ==
--- NOTE | 2019-03-26 21:56 | PN ---
PROGRESS NOTE DATE OF SERVICE: 03/26/2019 This is a 53-year-old gentleman who [facility] of obstructive sleep apnea-hypopnea syndrome. The patient continues to use his CPAP equipment; no snoring with the machine. [place] Sleepiness Scale today is 12. I checked the patient's BiPAP unit. Pressure is 18/14 cm of water. The patient is using it every night, and about 20 out of 30 nights more than 4 hours. His average usage is 5.2 hours per night. Leak is 11 L/minute, which is normal range for the full-face mask. Apnea-hypopnea index is 3.8, which is totally normal range. The patient is using AirTouch F20 large full-face mask. MEDICATIONS: Amitiza, Cymbalta, doxepin, duloxetine, famotidine, fenofibrate, gabapentin, Lamictal, meloxicam, metoprolol. PHYSICAL EXAMINATION: GENERAL: The patient is in no distress. VITAL SIGNS: BP 90/66, HR 90, RR 16, height 6 feet 0 inches, weight 259, which is about 11 pounds less than during the previous visit about 1-1/2 years ago. Temperature 97.0, oxygen saturation at room air 94%. HEENT: PERRLA, EOMI, evaluation of oropharynx showed tongue protrudes midline. Oropharynx: Extremely low position of soft palate, Mallampati IV. NECK: Supple, no JVD. Thyroid is not palpable. LUNGS: Clear to percussion and to auscultation. Good air exchange. No wheezing or rhonchi. HEART: S1, S2 regular. No murmurs, gallops, or rubs. ABDOMEN: Soft and nontender. Bowel sounds are present. No organomegaly appreciated. EXTREMITIES: No clubbing or cyanosis. TALENT COORDINATOR: Awake, alert, and oriented X3. Cranial nerves 2 to 7 intact. There is no fasciculation or atrophy. noted. No focal deficits observed. IMPRESSION: 1. Obstructive sleep apnea-hypopnea syndrome, controlled with BiPAP 18/14 cm of water, benefitting from treatment. 2. History of periodic limb movements. 3. Obesity. BMI 35.2. 4. Diabetes mellitus. 5. Bipolar. 6. History of anxiety. 7. Hypertension. 8. Hyperlipidemia. 9. Chronic obstructive pulmonary disease. 10.Acid reflux. 11.History of pancreatitis, pancreatic cyst, status post stent insertion. 12.History of spinal sepsis. 13.Status post cholecystectomy. 14.Status post tonsillectomy. PLAN: 1. Continue treatment with BiPAP every night for the whole night, with 2 liters per minute oxygen supplement. 2. Continue losing weight. 3. Precautions related to driving; no driving if feeling any sleepiness. 4. Prescriptions for all necessary supplies, including full-face mask, tube, filters. Thank you very much for allowing me to participate in the management of your patient. Sincerely, Tulio Tejeda MD, PhD, FAASM Diplomat of [employer] [employer] Tube Inspector of [facility] [place] MMODL / IJN: [id number] /
== END | disposition home or self-care (01) ==
LOC: SLEEP 14:26
PROVIDERS: ATTEND Internal Medicine
DX: G47.33 Obstructive sleep apnea (adult) (pediatric) (principal); E66.9 Obesity, unspecified; Z68.35 Body mass index [BMI] 35.0-35.9, adult; E11.9 Type 2 diabetes mellitus without complications; F31.9 Bipolar disorder, unspecified; I10 Essential (primary) hypertension; E78.5 Hyperlipidemia, unspecified; J44.9 Chronic obstructive pulmonary disease, unspecified; K21.9 Gastro-esophageal reflux disease without esophagitis; Z87.39 Personal history of other diseases of the musculoskeletal system and connective tissue; Z86.59 Personal history of other mental and behavioral disorders; Z90.49 Acquired absence of other specified parts of digestive tract; Z95.5 Presence of coronary angioplasty implant and graft; Z90.89 Acquired absence of other organs; Z87.19 Personal history of other diseases of the digestive system; Z99.89 Dependence on other enabling machines and devices; Z79.1 Long term (current) use of non-steroidal anti-inflammatories (NSAID); Z79.899 Other long term (current) drug therapy

== ENCOUNTER 2019-09-02 14:28 | Inpatient (IN) | payer MEDICARE, OTHER ==
--- NOTE | 2019-09-02 14:57 | ED ---
General Adult HPI - General Source: patient, RN notes reviewed Mode of arrival: wheelchair Limitations: no limitations <Domenic Ryan - Last Filed: 09/02/19 14:53> <Gerald Patel - Last Filed: 09/02/19 16:49> - General Chief complaint: Syncope Stated complaint: Syncope, knee and head injury Time Seen by Provider: 09/02/19 14:42 - History of Present Illness Initial comments: Patient is a pleasant 54-year-old male presenting to the emergency department following syncopal episodes. Episodes occurred 4 days ago while at home. Patient had 3 episodes. Patient is unclear how long they lasted for. Patient did strike his head. Patient has had some intermittent left eye double vision since that time. Patient did go to his doctor and was seen by an customer assistant there. Patient states he also twisted his right knee and is having a lot of discomfort, mostly in the anterior portion of the knee. Patient is having some mild headaches. During examination patient agrees that his left arm seems weak. (Domenic Ryan) - Related Data Home Medications Medication Instructions Recorded Confirmed Fenofibrate Nanocrystallized 145 mg PO DAILY 08/07/13 09/02/19 [Fenofibrate] Metoprolol Tartrate [Lopressor] 25 mg PO BID 08/07/13 09/02/19 Montelukast [Singulair] 10 mg PO HS 08/07/13 09/02/19 Pravastatin Sodium [Pravachol] 40 mg PO HS 08/07/13 09/02/19 QUEtiapine FUMARATE [SEROquel] 400 mg PO HS 10/01/16 09/02/19 lamoTRIgine 200 mg PO BID 10/01/16 09/02/19 Multivitamins, Thera [Multivitamin 1 tab PO DAILY 10/22/16 09/02/19 (formulary)] amLODIPine [Norvasc] 5 mg PO DAILY 10/22/16 09/02/19 Meloxicam [Mobic] 7.5 mg PO BID 10/23/17 09/02/19 Ergocalciferol [Vitamin D2 50,000 unit PO SA 10/31/18 09/02/19 (DRISDOL)] Gabapentin [Neurontin] 300 mg PO BID 10/31/18 09/02/19 Insulin Glargine,Hum.rec.anlog 74 unit SQ 10/31/18 09/02/19 [Basaglar Kwikpen U-100] Melatonin 10 mg PO HS 10/31/18 09/02/19 Albuterol Sulfate [Ventolin HFA] 1 - 2 puff INHALATION RT-Q6H PRN 09/02/19 09/02/19 Aspirin EC [Ecotrin] 325 mg PO DAILY 09/02/19 09/02/19 Buprenorphine HCl/Naloxone HCl 1 film SL BID 09/02/19 09/02/19 [Suboxone 8 mg-2 mg Sl Film] Canagliflozin [Invokana] 100 mg PO DIRECTED 09/02/19 09/02/19 DULoxetine HCL [Cymbalta] 30 mg PO BID 09/02/19 09/02/19 Diclofenac Sodium Gel [Voltaren 2 gm TOPICAL QID 09/02/19 09/02/19 Gel] Dicyclomine [Bentyl] 20 mg PO Q6H PRN 09/02/19 09/02/19 Doxepin HCl 75 mg PO DIRECTED 09/02/19 09/02/19 Doxycycline Monohydrate [Monodox] 100 mg PO BID 09/02/19 09/02/19 Famotidine 40 mg PO DAILY 09/02/19 09/02/19 Glycopyrrolate/Formoterol Fum 2 puff INHALATION DIRECTED 09/02/19 09/02/19 [Bevespi Aerosphere Inhaler] Insulin Aspart (For Pump) [NovoLOG 0.01 unit SQ-PUMP CONTINUOUS 09/02/19 09/02/19 (For Pump)] Omeprazole [PriLOSEC] 40 mg PO DIRECTED 09/02/19 09/02/19 QUEtiapine [SEROquel] 100 mg PO BID@0800,1200 09/02/19 09/02/19 traZODone HCL [Desyrel] 100 mg PO HS 09/02/19 09/02/19 Allergies Allergy/AdvReac Type Severity Reaction Status Date / Time haloperidol [From Haldol] AdvReac Hallucinati Verified 09/02/19 16:00 ons haloperidol lactate AdvReac Hallucinati Verified 09/02/19 16:00 [From Haldol] ons Review of Systems ROS Other: All systems not noted in ROS Statement are negative. Constitutional: Denies: fever Eyes: Reports: as per HPI, vision change ENT: Denies: ear pain Respiratory: Denies: cough Cardiovascular: Denies: chest pain Endocrine: Denies: fatigue Gastrointestinal: Denies: abdominal pain Genitourinary: Denies: dysuria Musculoskeletal: Denies: back pain Skin: Denies: rash Neurological: Reports: as per HPI, headache <ConnorDomenic - Last Filed: 09/02/19 14:53> ROS Other: All systems not noted in ROS Statement are negative. <Gerald Patel - Last Filed: 09/02/19 16:49> ROS Statement: Those systems with pertinent positive or pertinent negative responses have been documented in the HPI. 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, pancreatitis History of Any Multi-Drug Resistant Organisms: MRSA Date of last positivie culture/infection: 11/03/2008 MDRO Source:: spine Past Surgical History: Cholecystectomy Additional Past Surgical History / Comment(s): spinal fusion at L4 and L5, pancreatic surgery for pseudocyst w/stent Past Anesthesia/Blood Transfusion Reactions: No Reported Reaction Past Psychological History: Anxiety, Bipolar, Depression Smoking Status: Current every day smoker Past Alcohol Use History: None Reported Past Drug Use History: None Reported - Past Family History Mother Family Medical History: Hypertension Additional Family Medical History / Comment(s): Pt states mother had no health problems. Father Family Medical History: No Reported History Additional Family Medical History / Comment(s): pt stated his father is - had no medicals problems and of natural causes. <Domenic Ryan - Last Filed: 09/02/19 14:53> General Exam Limitations: no limitations General appearance: alert, in no apparent distress Head exam: Present: normocephalic Eye exam: Present: normal appearance, PERRL, EOMI. Absent: nystagmus ENT exam: Present: normal oropharynx Neck exam: Present: normal inspection. Absent: tenderness Respiratory exam: Present: normal lung sounds bilaterally Cardiovascular Exam: Present: regular rate, normal rhythm GI/Abdominal exam: Present: soft. Absent: tenderness Extremities exam: Present: tenderness (Right anterior knee with abrasions and swelling and tenderness in the proximal tibia and patella region.). Absent: calf tenderness Neurological exam: Present: alert, oriented X3, CN II-XII intact Expanded Neurological exam: Present: protecting the airway Speech: Present: fluid speech Cranial nerves: EOM's Intact: Normal Sensory exam: Upper Extremity Light Touch: Normal, Lower Extremity Light Touch: Normal Motor strength exam: RUE: 5, LUE: 4, RLE: 5, LLE: 5 Eye Response: (4) open spontaneously Motor Response: (6) obeys commands Verbal Response: (5) oriented Psychiatric exam: Present: normal affect, normal mood Skin exam: Present: abrasion <Domenic Ryan - Last Filed: 09/02/19 14:53> Course <Gerald Patel - Last Filed: 09/02/19 16:49> Vital Signs 09/02/19 09/02/19 09/02/19 14:31 15:00 15:15 Temperature 98.2 F Pulse Rate 90 89 87 Respiratory 18 18 18 Rate Blood Pressure 106/80 78/50 94/62 O2 Sat by Pulse 97 94 L 93 L Oximetry 09/02/19 09/02/19 15:45 16:15 Temperature Pulse Rate 85 85 Respiratory 18 18 Rate Blood Pressure 101/65 103/64 O2 Sat by Pulse 98 98 Oximetry - Reevaluation(s) Reevaluation #1: 09/02/19 15:32 The patient was endorsed me at our shift change pending lab work. He was noted be hypotensive and is in the process of getting a 1 L bolus of normal saline. Labs and CAT scan pending at this time the patient does admit that he has not been eating or drinking much the last several days he does demonstrate very dry oral mucosa. (Gerald Patel) Reevaluation #2: 09/02/19 16:43 Reevaluation patient his pressure did improve after IV hydration. Patient will be admitted computed tomography scan is negative for acute findings x-ray negative for acute findings. Patient be admitted for evaluation syncope acute kidney injury hypotensive episode failure to thrive (Gerald Patel) EKG Findings - EKG Comments: EKG Findings:: Normal sinus rhythm 94. AR 162. QRS 106. QT 366. QTc 457. Normal axis. Incomplete right bundle-branch block. No acute ST change. <Domenic Ryan - Last Filed: 09/02/19 14:53> Medical Decision Making - Lab Data Result diagrams: 09/02/19 15:10 09/02/19 15:10 <JorgeGerald - Last Filed: 09/02/19 16:49> - Lab Data Lab Results 09/02/19 09/02/19 09/02/19 Range/Units 15:10 15:10 15:10 WBC 13.5 H (3.8-10.6) k/uL RBC 4.57 (4.30-5.90) m/uL Hgb 14.3 (13.0-17.5) gm/dL Hct 42.5 (39.0-53.0) % MCV 93.0 (80.0-100.0) fL MCH 31.2 (25.0-35.0) pg MCHC 33.5 (31.0-37.0) g/dL RDW 12.4 (11.5-15.5) % Plt Count 274 (150-450) k/uL Neutrophils % 67 % Lymphocytes % 23 % Monocytes % 4 % Eosinophils % 4 % Basophils % 0 % Neutrophils # 9.0 H (1.3-7.7) k/uL Lymphocytes # 3.2 (1.0-4.8) k/uL Monocytes # 0.6 (0-1.0) k/uL Eosinophils # 0.6 (0-0.7) k/uL Basophils # 0.1 (0-0.2) k/uL PT 9.8 (9.0-12.0) sec INR 0.9 (<1.2) APTT 26.5 (22.0-30.0) sec Sodium 134 L (137-145) mmol/L Potassium 4.2 (3.5-5.1) mmol/L Chloride 99 (98-107) mmol/L Carbon Dioxide 28 (22-30) mmol/L Anion Gap 7 mmol/L BUN 26 H (9-20) mg/dL Creatinine 1.60 H (0.66-1.25) mg/dL Est GFR (CKD-EPI)AfAm 56 (>60 ml/min/1.73 sqM) Est GFR (CKD-EPI)NonAf 49 (>60 ml/min/1.73 sqM) Glucose 205 H (74-99) mg/dL Calcium 9.9 (8.4-10.2) mg/dL Total Bilirubin 0.4 (0.2-1.3) mg/dL AST 27 (17-59) U/L ALT 20 (4-49) U/L Alkaline Phosphatase 74 (38-126) U/L Troponin I (0.000-0.034) ng/mL Total Protein 7.2 (6.3-8.2) g/dL Albumin 4.1 (3.5-5.0) g/dL 09/02/19 Range/Units 15:10 WBC (3.8-10.6) k/uL RBC (4.30-5.90) m/uL Hgb (13.0-17.5) gm/dL Hct (39.0-53.0) % MCV (80.0-100.0) fL MCH (25.0-35.0) pg MCHC (31.0-37.0) g/dL RDW (11.5-15.5) % Plt Count (150-450) k/uL Neutrophils % % Lymphocytes % % Monocytes % % Eosinophils % % Basophils % % Neutrophils # (1.3-7.7) k/uL Lymphocytes # (1.0-4.8) k/uL Monocytes # (0-1.0) k/uL Eosinophils # (0-0.7) k/uL Basophils # (0-0.2) k/uL PT (9.0-12.0) sec INR (<1.2) APTT (22.0-30.0) sec Sodium (137-145) mmol/L Potassium (3.5-5.1) mmol/L Chloride (98-107) mmol/L Carbon Dioxide (22-30) mmol/L Anion Gap mmol/L BUN (9-20) mg/dL Creatinine (0.66-1.25) mg/dL Est GFR (CKD-EPI)AfAm (>60 ml/min/1.73 sqM) Est GFR (CKD-EPI)NonAf (>60 ml/min/1.73 sqM) Glucose (74-99) mg/dL Calcium (8.4-10.2) mg/dL Total Bilirubin (0.2-1.3) mg/dL AST (17-59) U/L ALT (4-49) U/L Alkaline Phosphatase (38-126) U/L Troponin I <0.012 (0.000-0.034) ng/mL Total Protein (6.3-8.2) g/dL Albumin (3.5-5.0) g/dL Critical Care Time Critical Care Time: Yes Total Critical Care Time: 31 <Gerald Patel - Last Filed: 09/02/19 16:49> Critical Care Time: 31 minutes of critical care time which includes sign out reevaluation the patient on several occasions discussion with the admitting physician Dr. Mendoza admission orders documentation of the above (Gerald Patel) Disposition <Domenic Ryan - Last Filed: 09/02/19 14:53> <Gerald Patel - Last Filed: 09/02/19 16:49> Clinical Impression: Syncopal episodes, Acute kidney injury, Dehydration, Hypotensive episode, Visua l disturbance Disposition: ADMITTED IP TO THIS HOSP Condition: Fair Referrals: Jordon Wood MD [Primary Care Provider] - 1-2 days
[2019-09-02] MEDS ORDERED: SODIUM CHLORIDE 0.9% 1,000 ML IV STA (15:14)
[2019-09-02 15:18] LABS: Basophils # (A) 0.1 k/uL (0-0.2); Basophils % (A) 0 %; Eosinophils # (A) 0.6 k/uL (0-0.7); Eosinophils % (A) 4 %; HCT 42.5 % (39.0-53.0); HGB 14.3 gm/dL (13.0-17.5); Lymphocytes # (A) 3.2 k/uL (1.0-4.8); Lymphocytes % (A) 23 %; MCH 31.2 pg (25.0-35.0); MCHC 33.5 g/dL (31.0-37.0); Mean Platelet Volume 7.4; Monocytes # (A) 0.6 k/uL (0-1.0); Monocytes % (A) 4 %; Neutrophils % (A) 67 %; Platelet Count 274 k/uL (150-450); RBC 4.57 m/uL (4.30-5.90); RDW 12.4 % (11.5-15.5); WBC 13.5 k/uL (3.8-10.6)
[2019-09-02 15:26] LABS: INR 0.9 (<1.2); Partial Thromboplastin Time 26.5 sec (22.0-30.0); Prothrombin Time 9.8 sec (9.0-12.0)
[2019-09-02 15:36] LABS: Albumin 4.1 g/dL (3.5-5.0); Calcium 9.9 mg/dL (8.4-10.2); Potassium 4.2 mmol/L (3.5-5.1); Total Bilirubin 0.4 mg/dL (0.2-1.3); Total Protein 7.2 g/dL (6.3-8.2)
--- NOTE | 2019-09-02 15:48 | XR ---
EXAMINATION TYPE: XR chest 2V DATE OF EXAM: 09/02/2019 COMPARISON: October 22, 2016 HISTORY: Shortness of breath TECHNIQUE: Frontal and lateral views of the chest are obtained. FINDINGS: Scattered senescent parenchymal changes noted. Hyperinflation compatible with COPD. No evidence for infiltrate. No evidence for atelectasis. Heart size is stable. Mediastinal structures are stable and grossly unremarkable. No evidence for hilar prominence. Degenerative changes dorsal spine. IMPRESSION: 1. No evidence for acute pulmonary disease.
--- NOTE | 2019-09-02 15:51 | XR ---
EXAMINATION TYPE: XR knee complete RT DATE OF EXAM: 09/02/2019 CLINICAL HISTORY: pain TECHNIQUE: Three views of the right knee are obtained. COMPARISON: None. FINDINGS: Chronic bony fragmentation from chronic Wainwright Schlatter disease with thickening of the pa tellar tendon. There is vague cortical lucency noted which likely reflects hairline fracture. Correla te clinically. The overlying soft tissue appears unremarkable. IMPRESSION: Vague cortical lucency anterior tibial diametaphyseal region just below the tibial tubero sity may reflect hairline fracture. Changes of chronic Jacqui-Schlatter disease.
--- NOTE | 2019-09-02 15:54 | CT ---
EXAMINATION TYPE: CT brain wo con DATE OF EXAM: 09/02/2019 COMPARISON: 07/11/2014 HISTORY: Weakness CT DLP: 1168.[address] of the brain was performed. The ventricles, basal cisterns and sulci overlying the cerebral convexities demonstrate mild enlargem ent. There is no evidence for intracranial hemorrhage or sulcal effacement. There is decreased attenuation about the periventricular white matter and deep white matter of both c erebral hemispheres, compatible with chronic small vessel ischemia. Differential diagnosis does inclu de demyelination. No mass effects are seen.No midline shift. Osseous calvarium is intact. If symptoms persist consider MRI. IMPRESSION: 1. Age related atrophic and chronic small vessel ischemic change without acute intracranial process s een at this time.
[2019-09-02] MEDS ORDERED: NALOXONE 0.4 MG/ML 1 ML VIAL IV PRN (16:50)
[2019-09-02] MEDS ORDERED: ALBUTEROL NEBULIZED 2.5 MG/3 ML INHALATION PRN (16:56)
[2019-09-02] MEDS ORDERED: DICYCLOMINE 20 MG TAB PO PRN (16:56)
[2019-09-02] MEDS ORDERED: Insulin Aspart (For Pump) 100 UNIT/ML VIAL SQ-PUMP SCH (17:00)
[2019-09-02] MEDS ORDERED: NON FORMULARY DRUG (Omeprazole 40 MG) PO SCH (17:00)
[2019-09-02] MEDS: SODIUM CHLORIDE 0.9% 1,000 ML IV SCH (17:17)
[2019-09-02] MEDS: DICLOFENAC SODIUM GEL 100 GM TUBE TOPICAL SCH ×2 (19:11→21:59)
[2019-09-02] MEDS: FORMOTEROL FUMARATE 20 MCG/2 ML NEBU INHALATION SCH (20:14)
[2019-09-02] MEDS: IPRATROPIUM 0.5 MG/2.5 ML NEBU INHALATION SCH (20:14)
[2019-09-02] MEDS ORDERED: GABAPENTIN 300 MG CAP PO SCH (21:00)
[2019-09-02 21:27] LABS: Glucose,Whole Blood 259 mg/dL (75-99)
[2019-09-02 21:46] LABS: Appearance,Urine Clear (Clear); Bilirubin,Urine Negative (Negative); Blood,Urine Negative (Negative); Color,Urine Yellow; Glucose,Urine (UA) 3+ (Negative); Ketones,Urine Negative (Negative); Leukocyte Esterase,Urine Negative (Negative); Nitrite,Urine Negative (Negative); Protein,Urine Negative (Negative); Specific Gravity,Urine 1.019 (1.001-1.035)
[2019-09-02] MEDS: ACETAMINOPHEN TAB 325 MG TAB PO PRN (21:59)
[2019-09-02] MEDS: MELOXICAM 7.5 MG TAB PO SCH (22:00)
[2019-09-02] MEDS: MELATONIN 5 MG TABLET PO SCH (22:00)
[2019-09-02] MEDS: DULoxetine HCL 30 MG CAPSULE.DR PO SCH (22:00)
[2019-09-02] MEDS: traZODone HCL 100 MG TAB PO SCH (22:01)
[2019-09-02] MEDS: lamoTRIgine 100 MG TAB PO SCH (22:01)
[2019-09-02] MEDS: PRAVASTATIN SODIUM 40 MG TAB PO SCH (22:01)
[2019-09-02] MEDS: MONTELUKAST 10 MG TAB PO SCH (22:01)
[2019-09-02] MEDS: INSULIN DETEMIR (LEVEMIR) 100 UNIT/ML SYR SQ SCH (22:01)
[2019-09-02] MEDS: QUEtiapine 400 MG TAB PO SCH (22:02)
[2019-09-02] MEDS: DOXYCYCLINE 100 MG CAP PO SCH (22:03)
[2019-09-03] MEDS: ACETAMINOPHEN TAB 325 MG TAB PO PRN (04:59)
[2019-09-03] MEDS: NON FORMULARY DRUG (Buprenorphine Hcl/Naloxone Hcl [Suboxone 8 Mg-2 Mg Sl Film] 1 FILM) SUBLINGUAL SCH ×3 (06:34→21:00)
[2019-09-03] MEDS: SODIUM CHLORIDE 0.9% 1,000 ML IV SCH ×3 (06:35→19:35)
[2019-09-03 06:39] LABS: Glucose,Whole Blood 138 mg/dL (75-99)
[2019-09-03] MEDS: INSULIN ASPART (NovoLOG) 100 UNIT/ML VIAL SQ SCH ×4 (06:41→22:07)
[2019-09-03] MEDS: IPRATROPIUM 0.5 MG/2.5 ML NEBU INHALATION SCH ×4 (08:04→19:59)
[2019-09-03] MEDS: FORMOTEROL FUMARATE 20 MCG/2 ML NEBU INHALATION SCH ×2 (08:04→19:59)
[2019-09-03 08:32] VITALS: RESP 18
[2019-09-03] MEDS: MELOXICAM 7.5 MG TAB PO SCH (08:40)
[2019-09-03] MEDS: MULTIVITAMINS, THERA 1 EACH TAB PO SCH (08:40)
[2019-09-03] MEDS: FAMOTIDINE 20 MG TAB PO SCH (08:41)
[2019-09-03] MEDS: lamoTRIgine 100 MG TAB PO SCH ×2 (08:41→22:06)
[2019-09-03] MEDS: amLODIPine 5 MG TAB PO SCH (08:41)
[2019-09-03] MEDS: FENOFIBRATE 160 MG TAB PO SCH (08:41)
[2019-09-03] MEDS: DULoxetine HCL 30 MG CAPSULE.DR PO SCH ×2 (08:41→22:06)
[2019-09-03] MEDS: DOXYCYCLINE 100 MG CAP PO SCH ×2 (08:42→22:06)
[2019-09-03] MEDS: QUEtiapine 200 MG TAB PO SCH ×2 (08:43→12:41)
[2019-09-03] MEDS: DICLOFENAC SODIUM GEL 100 GM TUBE TOPICAL SCH ×4 (08:44→22:05)
[2019-09-03] MEDS ORDERED: DOXEPIN 25 MG CAP PO SCH (09:00)
[2019-09-03] MEDS ORDERED: ASPIRIN 325 MG TAB PO SCH (09:00)
[2019-09-03 12:28] LABS: Glucose,Whole Blood 150 mg/dL (75-99)
--- NOTE | 2019-09-03 14:52 | P.CNNES ---
History of Present Illness Consult date: 09/03/19 Requesting physician: Gerald Patel Reason for Consult: Syncope History of Present Illness: Patient is a 54-year-old male who came to the hospital for pain in the right knee. Patient states that on 08/29/2019 he was walking to the deck men his left leg gave out and he fell. He does not believe that he lost c onsciousness although he is not very sure. Patient got up and shortly after fell down again because left leg gave out. He bruised his right knee, left shoulder. He stayed home. As his symptoms persisted, he decided to come to the ER yesterday at 2 PM. 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 He also has history of right hip surgery in December 2017. At present patient complains of pain in his right knee, left shoulder, weakness of the left hand. Patient denies any history of seizures. Chest x-ray showed no acute cardiopulmonary disease. Computed tomography scan of the head showed age-related atrophic and chronic small vessel ischemic dennis ges without acute intracranial process seen at this time. X-ray of the right knee showed very cortical lucency anterior tibial diametaphyseal region just below the tibial tuberosity may reflect hairline fracture. Changes of Jacqui- Schlatter's disease. EKG shows normal sinus rhythm with incomplete right bundle branch block. Patient previously had an EEG performed on 06/14/2014 for "syncopal episode and altered mental status with patient confused/encephalopathic", which was normal. Patient's blood test shows W BC 13.5 hemoglobin 14.3 platelets 274. PT/PTT normal. Sodium 134 potassium 4.2. BUN 26, creatinine 1.60. His last hemoglobin A1c 13.1 on 03/07/2018. Patient's previous rheumatoid factor, LETICIA negative. Patient has history of diabetes, which she claims is controlled although his last A1c was 13.1. He has smoked slightly less than one pack per day since age 17. Still smokes. He drinks 3 pops per day. Denies any alcohol use. Review of Systems As mentioned above in detail. Patient complains of pain in multiple parts of the body. Denies any chest pain, shortness of breath, wheezing or cough. Denies nausea vomiting diarrhea. Denies abdominal pain. Complains of weight gain. 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, pancreatitis History of Any Multi-Drug Resistant Organisms: MRSA Date of last positivie culture/infection: 11/03/2008 MDRO Source:: spine Past Surgical History: Cholecystectomy Additional Past Surgical History / Comment(s): spinal fusion at L4 and L5, pancreatic surgery for pseudocyst w/stent Past Anesthesia/Blood Transfusion Reactions: No Reported Reaction Past Psychological History: Anxiety, Bipolar, Depression Additional Psychological History / Comment(s): pt states gets minor panic attacks. PT LIVES WITH A ROOMATE AND 1 PET DOF. NO HOME CARE SERVICES. HAS BIPAP AND 02 CONCENTRATOR STATES HE" USES 6 LITERS W/ BIPAP AT HS", INSULIN PUMP Smoking Status: Current every day smoker Past Alcohol Use History: None Reported Additional Past Alcohol Use History / Comment(s): 1/2 ppd Past Drug Use History: None Reported Additional Drug Use History / Comment(s): Pt has hx of opiate abuse- quit 4 years ago . - Past Family History Mother Family Medical History: Hypertension Additional Family Medical History / Comment(s): Pt states mother had no health problems. Father Family Medical History: No Reported History Additional Family Medical History / Comment(s): pt stated his father is - had no medicals problems and of natural causes. Medications and Allergies Home Medications Medication Instructions Recorded Confirmed Type Fenofibrate Nanocrystallized 145 mg PO DAILY 08/07/13 09/02/19 History [Fenofibrate] Metoprolol Tartrate [Lopressor] 25 mg PO BID 08/07/13 09/02/19 History Montelukast [Singulair] 10 mg PO HS 08/07/13 09/02/19 History QUEtiapine FUMARATE [SEROquel] 300 mg PO HS 10/01/16 09/02/19 History lamoTRIgine 200 mg PO BID 10/01/16 09/02/19 History Multivitamins, Thera [Multivitamin 1 tab PO DAILY 10/22/16 09/02/19 History (formulary)] amLODIPine [Norvasc] 5 mg PO DAILY 10/22/16 09/02/19 History Meloxicam [Mobic] 7.5 mg PO BID 10/23/17 09/02/19 History Ergocalciferol [Vitamin D2 50,000 unit PO SA 10/31/18 09/02/19 History (DRISDOL)] Insulin Glargine,Hum.rec.anlog 74 unit SQ HS 10/31/18 09/02/19 History [Basaglar Kwikpen U-100] Melatonin 10 mg PO HS 10/31/18 09/02/19 History Albuterol Sulfate [Ventolin HFA] 1 - 2 puff INHALATION RT-Q6H PRN 09/02/19 09/02/19 History Aspirin EC [Ecotrin Low Dose] 81 mg PO DAILY 09/02/19 09/02/19 History Buprenorphine HCl/Naloxone HCl 1 film SL BID 09/02/19 09/02/19 History [Suboxone 8 mg-2 mg Sl Film] DULoxetine HCL [Cymbalta] 30 mg PO BID 09/02/19 09/02/19 History Diclofenac Sodium Gel [Voltaren 2 gm TOPICAL QID 09/02/19 09/02/19 History Gel] Dicyclomine [Bentyl] 20 mg PO Q6H PRN 09/02/19 09/02/19 History Doxycycline Monohydrate [Monodox] 100 mg PO BID 09/02/19 09/02/19 History Famotidine 40 mg PO DAILY 09/02/19 09/02/19 History INSULIN ASPART (NovoLOG) [NovoLOG See Protocol SQ ACHS 09/02/19 09/02/19 History (formulary)] QUEtiapine [SEROquel] 100 mg PO BID@0800,1200 09/02/19 09/02/19 History traZODone HCL [Desyrel] 100 mg PO HS 09/02/19 09/02/19 History Allergies Allergy/AdvReac Type Severity Reaction Status Date / Time haloperidol [From Haldol] AdvReac Hallucinati Verified 09/02/19 16:00 ons haloperidol lactate AdvReac Hallucinati Verified 09/02/19 16:00 [From Haldol] ons Physical Examination - Vital Signs Vital Signs: Vital Signs Temp Pulse Pulse Resp BP BP Pulse Ox 09/03/19 11:34 98.5 F 95 18 135/74 94 L 09/03/19 08:31 97.6 F 89 18 140/82 92 L 09/03/19 08:24 74 09/03/19 08:14 68 09/03/19 08:13 72 09/03/19 08:06 74 09/03/19 08:00 89 18 09/03/19 03:43 98.2 F 101 H 16 127/72 93 L 09/03/19 00:00 97.8 F 85 18 132/79 91 L 09/02/19 21:45 98.7 F 86 17 159/85 92 L 09/02/19 20:24 82 16 09/02/19 20:20 84 16 09/02/19 20:14 85 18 09/02/19 20:00 97.7 F 85 18 123/90 96 09/02/19 18:15 97.8 F 84 18 106/58 96 09/02/19 17:00 87 18 101/68 93 L 09/02/19 16:15 85 18 103/64 98 09/02/19 15:45 85 18 101/65 98 09/02/19 15:15 87 18 94/62 93 L 09/02/19 15:00 89 18 78/50 94 L 09/02/19 14:31 98.2 F 90 18 106/80 97 Intake and Output 09/02/19 09/03/19 09/03/19 22:59 06:59 14:59 Intake Total 125 Output Total 1150 Balance -1150 125 Intake: Oral 125 Output: Urine 1150 Other: Voiding Method Urinal Urinal Urinal # Voids 1 Weight 108.862 kg 122.5 kg On examination patient is a middle aged male, in no acute distress. Patient appears older than his stated age. He is alert and awake fully oriented. Speech and language functions are normal. Attention and concentration fund of knowledge is adequate. On cranial examination pupils are round and reactive to light, visual carbone are full on confrontation. Extraocular muscles are intact with no nystagmus. Face is symmetric, tongue protrudes the midline. Palatal elevation sensation normal. Hearing and shoulder shrug normal. On muscle strength testing the strength appears mildly decreased in the left shoulder 5-with pain. Right shoulder is normal. Biceps triceps are normal. Lead Loader is mildly decreased in the left 5-. In the lower limbs, (R/L) hip flexion is 5-/5, right knee not checked because of pain. Left knee extension is normal. Ankles are normal. Toe extension is 5/4-, toe flexion 5/3+4-. Reflexes are biceps 1+/1, brachioradialis 1/1, triceps 1/trace, knee not checked/3, ankle 1/1, plantar is questionable up on the right and down and left. Sensory touch is equal. No ataxia for [id number] testing. Tone and bulk of muscles normal. Gait deferred. There is no obvious bruit, S1 and S2 audible. Peripheral pulses present. Mild peripheral edema only the right leg. Abdomen soft nontender. Chest is clear. Results - Laboratory Findings CBC and BMP: 09/02/19 15:10 09/02/19 15:10 Abnormal Lab Findings: Abnormal Labs 09/02/19 09/02/19 09/02/19 15:10 15:10 21:24 WBC 13.5 H Neutrophils # 9.0 H Sodium 134 L BUN 26 H Creatinine 1.60 H Glucose 205 H POC Glucose (mg/dL) 259 H Urine Glucose (UA) 09/02/19 09/03/19 21:27 06:38 WBC Neutrophils # Sodium BUN Creatinine Glucose POC Glucose (mg/dL) 138 H Urine Glucose (UA) 3+ H Assessment and Plan Assessment: * Recurrent falls, unclear etiology. Likely multifactorial. Patient not sure if he lost consciousness with these falls or just fell due to losing balance. * Possible right knee fracture. * Diabetes poorly controlled * Obesity * Tobacco user * Hypertension * History of L3 4 discitis osteomyelitis in around 2009. Plan: * Patient will undergo syncope workup. * We will check carotid Doppler to rule out carotid stenosis. * 2-D echo to rule out any embolic source. * Continue aspirin and statins. * We will check hemoglobin A1c, fasting lipid panel, B12, folate, RPR, TSH. * Tobacco cessation. * We will follow.
--- NOTE | 2019-09-03 14:57 | XR ---
EXAMINATION TYPE: XR shoulder complete LT DATE OF EXAM: 09/03/2019 COMPARISON: NONE HISTORY: 54-year-old male fall and left shoulder pain TECHNIQUE: 3 views FINDINGS: Moderate to severe degenerative change at the AC joint. The some vacuum, marginal spurring, capsular hypertrophy. Bony spurring and sclerosis of the greater tuberosity. Degenerative spurring along the inferior gleno id. Suspect a loose body along the bicipital groove. No acute fracture, subluxation, dislocation seen . Focal 3.6 cm soft tissue protuberance from the lateral aspect of the upper arm. IMPRESSION: 1. Moderate to severe AC joint OA. Mild degenerative change at the glenohumeral joint. There may be a tiny 4 mm loose body along the bicipital groove. 2. No acute osseous abnormality seen. 3. Correlate with physical exam findings to exclude a soft tissue mass along the lateral aspect of th e upper arm estimated to measure 3.6 cm. Appropriate follow-up recommended.
--- NOTE | 2019-09-03 15:02 | US ---
EXAMINATION TYPE: US kidneys/renal and bladder DATE OF EXAM: 09/03/2019 COMPARISON: CT 10/30/2018 CLINICAL HISTORY: 54-year-old male renal failure. Abnormal labs. Patient voided before exam. TECHNIQUE: Multiple sonographic images of the kidneys and bladder are obtained. FINDINGS: EXAM MEASUREMENTS: Right Kidney: 10.3 x 5.6 x 5.6 cm Left Kidney: 11.0 x 5.5 x 6.1 cm Right Kidney: Cortical lobulations. Possible dromedary hump. Lower pole hypoechoic lesion measuring 1.0 x 0.8 x 0.8 cm. No hydronephrosis. Left Kidney: Cortical lobulations. No hydronephrosis. Bladder: Underdistended. This is to be circumferential wall thickening. Bilateral Jets not seen IMPRESSION: 1. No hydronephrosis. 2. A 1 cm hypoechoic lesion lower pole right kidney. As a small cyst was seen in this region on the CT, one-year follow-up ultrasound recommended to ensure stability.
--- NOTE | 2019-09-03 15:57 | P.CNOR ---
History of Present Illness - [facility] Consult date: 09/03/19 Consult reason: other (Left shoulder pain and right knee pain) History of present illness: The patient is a 54-year-old male with a past medical history including diabetes mellitus, GERD, hypertension, osteoarthritis, sleep apnea. He presented to the emergency department yesterday following syncopal episodes. He states the episodes occurred 5 days ago. During one of the episodes he did twist his right knee and fall onto his left shoulder. The patient was admitted for further evaluation by internal medicine and neurology. Orthopedics was consulted for further evaluation of his right knee and left shoulder. Patient does have a history of Jacqui-Schlatter's when he was younger. He states that there is pain upon weight-bearing of the right leg and he has been limping since the injury. He does smoke just under a pack per day. Today, he complains of left scapula pain and right knee pain which has not improved since admission. Review of Systems Constitutional: Denies chills, Denies fever Cardiovascular: Denies chest pain, Denies shortness of breath Respiratory: Denies cough Gastrointestinal: Denies abdominal pain, Denies diarrhea, Denies nausea, Denies vomiting Musculoskeletal: right: knee pain, knee stiffness, knee swelling, left: shoulder pain, shoulder stiffness 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, pancreatitis History of Any Multi-Drug Resistant Organisms: MRSA Year Discovered:: 11/03/2008 MDRO Source:: spine Past Surgical History: Cholecystectomy Additional Past Surgical History / Comment(s): spinal fusion at L4 and L5, pancreatic surgery for pseudocyst w/stent Past Anesthesia/Blood Transfusion Reactions: No Reported Reaction Past Psychological History: Anxiety, Bipolar, Depression Additional Psychological History / Comment(s): pt states gets minor panic attacks. PT LIVES WITH A ROOMATE AND 1 PET DOF. NO HOME CARE SERVICES. HAS BIPAP AND 02 CONCENTRATOR STATES HE" USES 6 LITERS W/ BIPAP AT HS", INSULIN PUMP Smoking Status: Current every day smoker Past Alcohol Use History: None Reported Additional Past Alcohol Use History / Comment(s): 1/2 ppd Past Drug Use History: None Reported Additional Drug Use History / Comment(s): Pt has hx of opiate abuse- quit 4 years ago . - Past Family History Mother Family Medical History: Hypertension Additional Family Medical History / Comment(s): Pt states mother had no health problems. Father Family Medical History: No Reported History Additional Family Medical History / Comment(s): pt stated his father is - had no medicals problems and of natural causes. Medications and Allergies Home Medications Medication Instructions Recorded Confirmed Type Fenofibrate Nanocrystallized 145 mg PO DAILY 08/07/13 09/02/19 History [Fenofibrate] Metoprolol Tartrate [Lopressor] 25 mg PO BID 08/07/13 09/02/19 History Montelukast [Singulair] 10 mg PO HS 08/07/13 09/02/19 History QUEtiapine FUMARATE [SEROquel] 300 mg PO HS 10/01/16 09/02/19 History lamoTRIgine 200 mg PO BID 10/01/16 09/02/19 History Multivitamins, Thera [Multivitamin 1 tab PO DAILY 10/22/16 09/02/19 History (formulary)] amLODIPine [Norvasc] 5 mg PO DAILY 10/22/16 09/02/19 History Meloxicam [Mobic] 7.5 mg PO BID 10/23/17 09/02/19 History Ergocalciferol [Vitamin D2 50,000 unit PO SA 10/31/18 09/02/19 History (DRISDOL)] Insulin Glargine,Hum.rec.anlog 74 unit SQ HS 10/31/18 09/02/19 History [Berylaglar Yuan U-100] Melatonin 10 mg PO HS 10/31/18 09/02/19 History Albuterol Sulfate [Ventolin HFA] 1 - 2 puff INHALATION RT-Q6H PRN 09/02/19 09/02/19 History Aspirin EC [Ecotrin Low Dose] 81 mg PO DAILY 09/02/19 09/02/19 History Buprenorphine HCl/Naloxone HCl 1 film SL BID 09/02/19 09/02/19 History [Suboxone 8 mg-2 mg Sl Film] DULoxetine HCL [Cymbalta] 30 mg PO BID 09/02/19 09/02/19 History Diclofenac Sodium Gel [Voltaren 2 gm TOPICAL QID 09/02/19 09/02/19 History Gel] Dicyclomine [Bentyl] 20 mg PO Q6H PRN 09/02/19 09/02/19 History Doxycycline Monohydrate [Monodox] 100 mg PO BID 09/02/19 09/02/19 History Famotidine 40 mg PO DAILY 09/02/19 09/02/19 History INSULIN ASPART (NovoLOG) [NovoLOG See Protocol SQ ACHS 09/02/19 09/02/19 History (formulary)] QUEtiapine [SEROquel] 100 mg PO BID@0800,1200 09/02/19 09/02/19 History traZODone HCL [Desyrel] 100 mg PO HS 09/02/19 09/02/19 History Allergies Allergy/AdvReac Type Severity Reaction Status Date / Time haloperidol [From Haldol] AdvReac Hallucinati Verified 09/02/19 16:00 ons haloperidol lactate AdvReac Hallucinati Verified 09/02/19 16:00 [From Haldol] ons Physical Examination The patient is a 54-year-old male who is in no acute distress. He is alert and oriented 3. Exam of the left shoulder reveals no pain upon palpation to the AC joint, anterior, or posterior shoulder. No joint laxity noted. The patient was laying on the left shoulder before the exam started. There is tenderness superior to the scapula which appears to be muscular. There is full active range of motion of the shoulder without significant pain. Exam of the right knee reveals point tenderness to the anterior tibia just below the tibial tuberosity. There is full active range of motion with pain on the endpoint of flexion and with full extension. Calf is soft and nontender neurological and circulatory status is intact to the bilateral upper and lower extremities. Results - Labs Labs: Abnormal Lab Results - Last 24 Hours (Table) 09/02/19 09/02/19 09/03/19 Range/Units 21:24 21:27 06:38 POC Glucose (mg/dL) 259 H 138 H (75-99) mg/dL Urine Glucose (UA) 3+ H (Negative) 09/03/19 Range/Units 12:27 POC Glucose (mg/dL) 150 H (75-99) mg/dL Urine Glucose (UA) (Negative) H & H 09/02/19 Range/Units 15:10 Hgb 14.3 (13.0-17.5) gm/dL Hct 42.5 (39.0-53.0) % Coagulation 09/02/19 Range/Units 15:10 INR 0.9 (<1.2) Result Diagrams: 09/02/19 15:10 09/02/19 15:10 - Diagnostic results Shoulder x-ray: image reviewed (x-rays of the left shoulderdictated 09/03/2019 reveals moderate to severe AC jointosteoarthritis. Mild degenerative changes to the glenohumeral joint. No acute fracture seen.) Knee x-ray: image reviewed (x-rays of the right knee dated 09/02/2019 revealed a slight lucency to the anterior tibial region just below the tibial tuberosity. The fracture is nondisplaced.) Assessment and Plan (1) Closed tibial fracture Current Visit: Yes Status: Acute Code(s): S82.209A - UNSP FRACTURE OF SHAFT OF UNSP TIBIA, INIT FOR CLOS FX SNOMED Code(s): 946930135 (2) Shoulder pain, left Current Visit: Yes Status: Acute Code(s): M25.512 - PAIN IN LEFT SHOULDER SNOMED Code(s): 69045946 (3) Syncopal episodes Current Visit: Yes Status: Acute Code(s): R55 - SYNCOPE AND COLLAPSE SNOMED Code(s): 596692236 (4) Diabetes mellitus Current Visit: Yes Status: Acute Code(s): E11.9 - TYPE 2 DIABETES MELLITUS WITHOUT COMPLICATIONS SNOMED Code(s): 46364651 (5) Hypertension Current Visit: Yes Status: Acute Code(s): I10 - ESSENTIAL (PRIMARY) H YPERTENSION SNOMED Code(s): 69914603 Plan: The clinical and x-ray findings were discussed with the patient. The case was discussed at length with Dr. Rodriguez. We will order a CT of the right knee to further evaluate the tibial fracture. He may toe-touch weight-bear to the right leg with a walker as tolerated. Continue conservative treatment to the left shoulder including ice and/or heat and anti-inflammatories as tolerated. We will await CT findings for further recommendations at this time.
--- NOTE | 2019-09-03 16:49 | CT ---
EXAMINATION TYPE: CT knee RT wo con DATE OF EXAM: 09/03/2019 COMPARISON: None HISTORY: right knee pain CT DLP: 137.9 mGycm Automated exposure control for dose reduction was used. Unenhanced CT of the right knee was performed with bone and soft tissue window settings submitted. FINDINGS: There is hairline fracture at the level of the tibial tuberosity. No significant displacement is iden tified. Chronic fragmentation of [place]-Schlatter disease. Thickening of the patellar tendon. Small s uprapatellar joint effusion. Mild degenerative narrowing patellofemoral joint space and tibiofemoral joint space. Patellar spurring noted. IMPRESSION: ANTERIOR TIBIAL HAIRLINE FRACTURE JUST BELOW THE TIBIAL TUBEROSITY
[2019-09-03 17:01] LABS: Glucose,Whole Blood 133 mg/dL (75-99)
--- NOTE | 2019-09-03 18:23 | P.HPIM ---
History of Present Illness H&P Date: 09/03/19 Chief Complaint: Syncope History of presenting complaint: This is a 54-year-old patient who follows with Dr. thomas from [place]. Chronic stable medical conditions include diabetes mellitus type II on insulin pump.,GERD, hypertension, obstructive sleep apnea uses CPAP, chronic pancreatitis, bipolar disorder and chronic low back pain. About 5 days ago patient leaves the house. Retired when he felt a bit dizzy and nearly passed out. Very briefly. Did bump his head to the ground. No double vision. No focal weakness. He did injure his left shoulder and is having some discomfort in the same. Patient also twisted his knee is having. The right knee. Denies any chest pain or palpitation. No fever no chills. She does continue to smoke. Review of systems: GEN.: Tired EYES: None HEENT: None NECK: None RESPIRATORY: Occasional wheezing CARDIOVASCULAR: None GASTROINTESTINAL: As above GENITOURINARY: None MUSCULOSKELETAL: Chronic low back pain, shoulder pain in right knee pain secondary to fall LYMPHATICS: None HEMATOLOGICAL: None PSYCHIATRY: None NEUROLOGICAL: None Past medical history: Diabetes on insulin pump, chronic pancreatitis, GERD, hypertension, primary osteoarthritis, sleep apnea uses CPAP, arthritis of the lumbar spine, Social history: Lives with his roommate and a pet dog. Has a BiPAP at home. Patient be smoking over 35 years, currently half a pack a day. History of alcohol abuse in the past close to 3 years ago. Family history: Hypertension Physical examination: VITAL SIGNS: 97.6, 89, 18, 140/82, 92% room air GENERAL: BMI 35.6, sitting up in bed, somewhat tired EYES: Pupils equal. Conjunctiva normal. HEENT: External appearance of nose and ears normal, oral cavity grossly normal. NECK: JVD not raised; masses not palpable. HEART: First and second heart sounds are normal; no edema. LUNGS: Respiratory rate increased, diminished breath sounds mild wheezing ABDOMEN: Soft, non-tenderness, no guarding rigidity, liver spleen not palpable, no masses palpable. PSYCH: Alert and oriented x3; mood and affect normal. NEUROLOGICAL: Cranial nerves grossly intact; no facial asymmetry, power and sensation grossly intact. LYMPHATICS: No lymph nodes palpable in the axilla and neck INVESTIGATIONS, reviewed in the clinical context: White count 13.5 hemoglobin 40.3 platelets 234 potassium 4.2 bun 26 creatinine 1.60 Chest x-ray film personally reviewed by me-shows some prominent pulmonary artery Right knee x-ray with cortical lucency anterior tibial timewise metaphysical region. May reflect hairline fracture Computed tomography scan of the brain-aged related to atrophic changes -EKG tracing personally reviewed by me shows-normal sinus rhythm Previous testing: On October 2018 patient's bun was 15 creatinine was 0.97 Assessment: -Syncope likely from dehydration in a patient with acute kidney injury. Denies any cardiac symptoms. Has no other focal neurological symptoms. We'll put on telemetry to rule out any arrhythmia. -Blunt injury to the right knee and left shoulder secondary to fall. Rule out meniscal injury. -Diabetes mellitus type 2 chronically insulin pump -GERD -Essential hypertension -Obstructive sleep apnea uses a BiPAP machine -Bipolar disorder -Chronic low back pain -Obesity BMI 31.7 -Chronic nicotine dependence patient cigarette smoker -Acute kidney injury likely prerenal and the patient was also taking baby aspirin, Mobic Plan: Patient put on IV fluids. I'll review the ultrasound. Repeat labs in the morning. Patient is very keen to go home. Explained to him. We'll get or thopedic consultation for a left shoulder injury and the right knee injury and pain. Patient also put on telemetry to rule out any arrhythmia. Neurological consultation also none. 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, pancreatitis History of Any Multi-Drug Resistant Organisms: MRSA Date of last positivie culture/infection: 11/03/2008 MDRO Source:: spine Past Surgical History: Cholecystectomy Additional Past Surgical History / Comment(s): spinal fusion at L4 and L5, pancreatic surgery for pseudocyst w/stent Past Anesthesia/Blood Transfusion Reactions: No Reported Reaction Past Psychological History: Anxiety, Bipolar, Depression Additional Psychological History / Comment(s): pt states gets minor panic attacks. PT LIVES WITH A ROOMATE AND 1 PET DOF. NO HOME CARE SERVICES. HAS BIPAP AND 02 CONCENTRATOR STATES HE" USES 6 LITERS W/ BIPAP AT HS", INSULIN PUMP Smoking Status: Current every day smoker Past Alcohol Use History: None Reported Additional Past Alcohol Use History / Comment(s): 2 ppd Past Drug Use History: None Reported Additional Drug Use History / Comment(s): Pt has hx of opiate abuse- quit 4 years ago . - Past Family History Mother Family Medical History: Hypertension Additional Family Medical History / Comment(s): Pt states mother had no health problems. Father Family Medical History: No Reported History Additional Family Medical History / Comment(s): pt stated his father is - had no medicals problems and of natural causes. Medications and Allergies Home Medications Medication Instructions Recorded Confirmed Type Fenofibrate Nanocrystallized 145 mg PO DAILY 08/07/13 09/02/19 History [Fenofibrate] Metoprolol Tartrate [Lopressor] 25 mg PO BID 08/07/13 09/02/19 History Montelukast [Singulair] 10 mg PO HS 08/07/13 09/02/19 History QUEtiapine FUMARATE [SEROquel] 300 mg PO HS 10/01/16 09/02/19 History lamoTRIgine 200 mg PO BID 10/01/16 09/02/19 History Multivitamins, Thera [Multivitamin 1 tab PO DAILY 10/22/16 09/02/19 History (formulary)] amLODIPine [Norvasc] 5 mg PO DAILY 10/22/16 09/02/19 History Meloxicam [Mobic] 7.5 mg PO BID 10/23/17 09/02/19 History Ergocalciferol [Vitamin D2 50,000 unit PO SA 10/31/18 09/02/19 History (DRISDOL)] Insulin Glargine,Hum.rec.anlog 74 unit SQ HS 10/31/18 09/02/19 History [Basaglar Kwikpen U-100] Melatonin 10 mg PO HS 10/31/18 09/02/19 History Albuterol Sulfate [Ventolin HFA] 1 - 2 puff INHALATION RT-Q6H PRN 09/02/19 09/02/19 History Aspirin EC [Ecotrin Low Dose] 81 mg PO DAILY 09/02/19 09/02/19 History Buprenorphine HCl/Naloxone HCl 1 film SL BID 09/02/19 09/02/19 History [Suboxone 8 mg-2 mg Sl Film] DULoxetine HCL [Cymbalta] 30 mg PO BID 09/02/19 09/02/19 History Diclofenac Sodium Gel [Voltaren 2 gm TOPICAL QID 09/02/19 09/02/19 History Gel] Dicyclomine [Bentyl] 20 mg PO Q6H PRN 09/02/19 09/02/19 History Doxycycline Monohydrate [Monodox] 100 mg PO BID 09/02/19 09/02/19 History Famotidine 40 mg PO DAILY 09/02/19 09/02/19 History INSULIN ASPART (NovoLOG) [NovoLOG See Protocol SQ ACHS 09/02/19 09/02/19 History (formulary)] QUEtiapine [SEROquel] 100 mg PO BID@0800,1200 09/02/19 09/02/19 History traZODone HCL [Desyrel] 100 mg PO HS 09/02/19 09/02/19 History Allergies Allergy/AdvReac Type Severity Reaction Status Date / Time haloperidol [From Haldol] AdvReac Hallucinati Verified 09/02/19 16:00 ons haloperidol lactate AdvReac Hallucinati Verified 09/02/19 16:00 [From Haldol] ons Physical Exam Vitals: Vital Signs Temp Pulse Pulse Resp BP BP Pulse Ox 09/03/19 08:31 97.6 F 89 18 140/82 92 L 09/03/19 08:24 74 09/03/19 08:14 68 09/03/19 08:13 72 09/03/19 08:06 74 09/03/19 08:00 89 18 09/03/19 03:43 98.2 F 101 H 16 127/72 93 L 09/03/19 00:00 97.8 F 85 18 132/79 91 L 09/02/19 21:45 98.7 F 86 17 159/85 92 L 09/02/19 20:24 82 16 09/02/19 20:20 84 16 09/02/19 20:14 85 18 09/02/19 20:00 97.7 F 85 18 123/90 96 09/02/19 18:15 97.8 F 84 18 106/58 96 09/02/19 17:00 87 18 101/68 93 L 09/02/19 16:15 85 18 103/64 98 09/02/19 15:45 85 18 101/65 98 09/02/19 15:15 87 18 94/62 93 L 07/01/20 15:00 89 18 78/50 94 L 09/02/19 14:31 98.2 F 90 18 106/80 97 Intake and Output 09/02/19 09/03/19 09/03/19 22:59 06:59 14:59 Intake Total 125 Output Total 1150 Balance -1150 125 Intake: Oral 125 Output: Urine 1150 Other: Voiding Method Urinal Urinal Urinal # Voids 1 Weight 108.862 kg 122.5 kg Results CBC & Chem 7: 09/02/19 15:10 09/02/19 15:10 Labs: Abnormal Lab Results - Last 24 Hours (Table) 09/02/19 09/02/19 09/02/19 Range/Units 15:10 15:10 21:24 WBC 13.5 H (3.8-10.6) k/uL Neutrophils # 9.0 H (1.3-7.7) k/uL Sodium 134 L (137-145) mmol/L BUN 26 H (9-20) mg/dL Creatinine 1.60 H (0.66-1.25) mg/dL Glucose 205 H (74-99) mg/dL POC Glucose (mg/dL) 259 H (75-99) mg/dL Urine Glucose (UA) (Negative) 09/02/19 09/03/19 Range/Units 21:27 06:38 WBC (3.8-10.6) k/uL Neutrophils # (1.3-7.7) k/uL Sodium (137-145) mmol/L BUN (9-20) mg/dL Creatinine (0.66-1.25) mg/dL Glucose (74-99) mg/dL POC Glucose (mg/dL) 138 H (75-99) mg/dL Urine Glucose (UA) 3+ H (Negative) Thrombosis Risk Factor Assmnt - Choose All That Apply Each Factor Represents 1 point: Age 41-60 years, Obesity (BMI >25) Thrombosis Risk Factor Assessment Total Risk Factor Score: 2 Thrombosis Risk Factor Assessment Level: Low Risk
--- NOTE | 2019-09-03 19:05 | ECHOF ---
Referral Reason:Syncope MEASUREMENTS -------- HEIGHT: 185.4 cm WEIGHT: 122.5 kg BP: RVIDd: 3.3 cm (< 3.3) IVSd: 1.3 cm (0.6 - 1.1) LVIDd: 5.4 cm (3.9 - 5.3) LVPWd: 1.2 cm (0.6 - 1.1) IVSs: 2.1 cm LVIDs: 3.2 cm LVPWs: 1.9 cm LA Diam: 3.9 cm (2.7 - 3.8) LAESV Index (A-L): 26.64 ml/m Ao Diam: 3.4 cm (2.0 - 3.7) AV Cusp: 2.5 cm (1.5 - 2.6) MV EXCURSION: 19.436 mm (> 18.000) MV EF SLOPE: 126 mm/s (70 - 150) EPSS: 1.4 cm MV E Addison: 1.50 m/s MV DecT: 194 ms MV A Addison: 1.71 m/s MV E/A Ratio: 0.88 FINDINGS -------- Sinus rhythm. This was a technically good study. The left ventricular size is normal. There is mild concentric left ventricular hypertrophy. Overa ll left ventricular systolic function is normal with, an EF between 60 - 65 %. The right ventricle is mildly enlarged. Normal LA size by volume 22+/-6 ml/m2. The right atrium is normal in size. Interatrial and interventricular septum intact. Aortic valve is trileaflet and is mildly thickened. The mitral valve is normal. The tricuspid valve appears structurally normal. There is no pulmonic regurgitation present. The aortic root size is normal. Normal inferior vena cava with normal inspiratory collapse consistent with estimated right atrial pre ssure of 5 mmHg. There is no pericardial effusion. CONCLUSIONS -------- 1. Sinus rhythm. 2. This was a technically good study. 3. The left ventricular size is normal. 4. There is mild concentric left ventricular hypertrophy. 5. Overall left ventricular systolic function is normal with, an EF between 60 - 65 %. 6. The right ventricle is mildly enlarged. 7. Normal LA size by volume 22+/-6 ml/m2. 8. The right atrium is normal in size. 9. Interatrial and interventricular septum intact. 10. Aortic valve is trileaflet and is mildly thickened. 11. The mitral valve is normal. 12. The tricuspid valve appears structurally normal. 13. There is no pulmonic regurgitation present. 14. The aortic root size is normal. 15. Normal inferior vena cava with normal inspiratory collapse consistent with estimated right atrial pressure of 5 mmHg. 16. There is no pericardial effusion. SOFTWARE RELEASE MANAGER: Marcela Sal RDCS
[2019-09-03 21:00] LABS: Glucose,Whole Blood 141 mg/dL (75-99)
[2019-09-03] MEDS: PRAVASTATIN SODIUM 40 MG TAB PO SCH (22:06)
[2019-09-03] MEDS: QUEtiapine 400 MG TAB PO SCH (22:06)
[2019-09-03] MEDS: MONTELUKAST 10 MG TAB PO SCH (22:07)
[2019-09-03] MEDS: traZODone HCL 100 MG TAB PO SCH (22:07)
[2019-09-03] MEDS: MELATONIN 5 MG TABLET PO SCH (22:07)
[2019-09-03] MEDS: INSULIN DETEMIR (LEVEMIR) 100 UNIT/ML SYR SQ SCH (22:08)
[2019-09-03] MEDS: NICOTINE 21MG/24HR PATCH TRANSDERM SCH (22:11)
--- NOTE | 2019-09-03 22:29 | US ---
EXAMINATION TYPE: US carotid duplex BILAT DATE OF EXAM: 09/03/2019 COMPARISON: US 2011 CLINICAL HISTORY: Syncope. Syncope. EXAM MEASUREMENTS: RIGHT: Peak Systolic Velocity (PSV) cm/sec ----- Right CCA: 59.5 ----- Right ICA: 56.6 ----- Right ECA: 100.0 ICA/CCA ratio: 1.0 RIGHT: End Diastole cm/sec ----- Right CCA: 12.9 ----- Right ICA: 23.1 ----- Right ECA: 19.2 LEFT: Peak Systolic Velocity (PSV) cm/sec ----- Left CCA: 76.5 ----- Left ICA: 77.6 ----- Left ECA: 91.4 ICA/CCA ratio: 1.0 LEFT: End Diastole cm/sec ----- Left CCA: 21.5 ----- Left ICA: 21.5 ----- Left ECA: 10.7 VERTEBRALS (direction of flow): Right Vertebral: Not seen Left Vertebral: Not seen Rhythm: Normal Hyperechoic plaque seen bilateral carotid bifurcations. No elevated velocities obtained at this time. Prox CCA is limited bilaterally due to patient's neck positioning. Slightly limited exam due to annetta ent's movement. Hypoechoic area with hyperechoic center seen left neck measurin.0 x 1.3 x 0.5 cm. -JH and NW. IMPRESSION: Vertebral arteries were not evaluated. Limited exam. Images and measurements suggest 30% stenosis in both internal carotid arteries. Criteria for Assigning % of Stenosis / Diameter reduction (Estimation based on the indirect measurements of the internal carotid artery velocities (ICA PSV). 1. Normal (no stenosis)=ICA PSV < 125 cm/s: ratio < 2.0: ICA EDV<40 cm/s. 2. Less than 50% stenosis=ICA PSV < 125 cm/s: ratio < 2.0: ICA EDV<40 cm/s. 3. 50 to 69% stenosis=ICA PSV of 125 to 230 cm/s: ration 2.0 ? 4.0: ICA EDV 40-100 cm/s. 4. Greater than 70% stenosis to near occlusion= ICA PSV > 230 cm/s: ratio > 4.0: ICA EDV > 100 cm/s. 5. Near occlusion= ICA PSV velocities may be low or undetectable: variable ratio and ICA EDV. 6. Total occlusion=unable to detect flow.
[2019-09-04 00:37] LABS: Hemoglobin A1C 11.3 % (4.0-6.0)
[2019-09-04 02:49] LABS: Folate, Serum 18.8 ng/mL
[2019-09-04] MEDS: SODIUM CHLORIDE 0.9% 1,000 ML IV SCH ×2 (03:00→08:48)
[2019-09-04 06:28] LABS: African American GFR (CKD) >90 (>60 ml/min/1.73 sqM); Anion Gap 4 mmol/L; Blood Urea Nitrogen 16 mg/dL (9-20); Calcium 9.1 mg/dL (8.4-10.2); Carbon Dioxide 29 mmol/L (22-30); Chloride 106 mmol/L (98-107); Glucose 104 mg/dL (74-99); Non-African American GFR(CKD) >90 (>60 ml/min/1.73 sqM); Sodium 139 mmol/L (137-145)
[2019-09-04 06:30] LABS: Glucose,Whole Blood 117 mg/dL (75-99)
[2019-09-04] MEDS: INSULIN ASPART (NovoLOG) 100 UNIT/ML VIAL SQ SCH ×2 (06:38→12:37)
[2019-09-04] MEDS: IPRATROPIUM 0.5 MG/2.5 ML NEBU INHALATION SCH ×2 (07:08→11:03)
[2019-09-04] MEDS: FORMOTEROL FUMARATE 20 MCG/2 ML NEBU INHALATION SCH (07:08)
[2019-09-04] MEDS: lamoTRIgine 100 MG TAB PO SCH (08:39)
[2019-09-04] MEDS: FAMOTIDINE 20 MG TAB PO SCH (08:39)
[2019-09-04] MEDS: FENOFIBRATE 160 MG TAB PO SCH (08:40)
[2019-09-04] MEDS: NICOTINE 21MG/24HR PATCH TRANSDERM SCH (08:40)
[2019-09-04] MEDS: amLODIPine 5 MG TAB PO SCH (08:40)
[2019-09-04] MEDS: DULoxetine HCL 30 MG CAPSULE.DR PO SCH (08:40)
[2019-09-04] MEDS: DOXYCYCLINE 100 MG CAP PO SCH (08:41)
[2019-09-04] MEDS: QUEtiapine 200 MG TAB PO SCH ×2 (08:41→12:39)
[2019-09-04] MEDS: DICLOFENAC SODIUM GEL 100 GM TUBE TOPICAL SCH ×2 (08:42→12:38)
[2019-09-04] MEDS: MULTIVITAMINS, THERA 1 EACH TAB PO SCH (08:45)
[2019-09-04] MEDS ORDERED: NON FORMULARY DRUG (Buprenorphine Hcl/Naloxone Hcl [Suboxone 8 Mg-2 Mg Sl Film] 1 FILM) SUBLINGUAL SCH (09:00)
[2019-09-04] MEDS ORDERED: ASPIRIN 81 MG PO SCH (09:00)
[2019-09-04 09:47] VITALS: PULSE 95
[2019-09-04 12:34] LABS: Glucose,Whole Blood 81 mg/dL (75-99)
[2019-09-04 14:01] VITALS: BP 137/81; TEMP 98.2
--- NOTE | 2019-09-04 14:11 | P.PN ---
Subjective Progress Note Date: 09/04/19 This patient is a 54- year old male with a past medical history including diabetes mellitus, GERD, hypertension, osteoarthritis, sleep apnea. He presented to the emergency department yesterday following syncopal episodes. He states the episodes occurred 5 days ago. During one of the episodes he did twis t his right knee and fall onto his left shoulder. CT scan of the right knee was ordered yesterday and confirmed a non-displaced tibia fracture just below the tibial tuberosity. Patient is seen and examined bedside this morning. Patient continues to complain of right knee pain, located to the anterior tibia. He states he is continuing to experience pain in the scapular region. He denies pain with passive range of motion of the left shoulder. He has no new complaints this morning. Vital signs stable. Objective - Vital Signs Vital signs: Vital Signs Temp 99 F 09/04/19 08:00 Pulse 95 09/04/19 08:00 Resp 18 09/04/19 08:00 BP 143/90 09/04/19 08:00 Pulse Ox 96 09/04/19 08:00 Intake & Output 09/03/19 09/04/19 09/04/19 18:59 06:59 18:59 Intake Total 587 1560 Output Total 450 Balance 587 1110 Weight 112 kg Intake: Intake, IV Titration 1560 Amount Sodium Chloride 0.9% 1, 1560 000 ml @ 130 mls/hr IV . Q7H42M [facility] Rx#:[id number] Oral 587 Output: Urine 450 Other: Voiding Method Urinal Urinal Urinal # Voids 4 1 - Exam On examination, the patient is sitting up in bed in no apparent distress. He is alert and oriented 3. On inspection of the right knee, there is a superficial abrasion to the anterior knee with no surrounding erythema or warmth, or drainage. There is moderate pain with palpation of the anterior tibia just below the tibial tuberosity. No pain with PROM of the knee. The patient has good strength and range of motion of the right ankle. Motor and sensory function are intact of the right lower extremity. Dorsalis pedis pulse +2. Right lower extremity is warm and well-perfused with brisk capillary refill distally. Calf is soft and nontender to palpation. On inspection of the left shoulder, there is no erythema or swelling. No lacerations, skin is intact. There is pain on palpation just superior to the scapula which appears to be muscular in origin. No pain with PROM of the shoulder No pain on palpation of the C-spine. - Labs CBC & Chem 7: 09/02/19 15:10 09/04/19 05:54 Labs: Abnormal Lab Results - Last 24 Hours (Table) 09/03/19 09/03/19 09/03/19 Range/Units 15:20 17:00 20:58 Glucose (74-99) mg/dL POC Glucose (mg/dL) 133 H 141 H (75-99) mg/dL Hemoglobin A1c 11.3 H (4.0-6.0) % 09/04/19 09/04/19 Range/Units 05:54 06:25 Glucose 104 H (74-99) mg/dL POC Glucose (mg/dL) 117 H (75-99) mg/dL Hemoglobin A1c (4.0-6.0) % Assessment and Plan Assessment: Non-displaced proximal right tibia fracture. Left shoulder pain. Plan: - The clinical and imaging findings were discussed with patient. Patient was discussed with Dr. Rodriguez. The patient's right knee will be immobilized in a knee immobilizer. He may bear weight to tolerance on the right knee while wearing a knee immobilizer, ambulation with crutches or walker. He may remove the knee immobilizer while at rest. - Continue fall precautions. Up with assistance only. - Continue conservative treatment in regards to the left shoulder with topical heat/ice as tolerated, and PRN NSAIDs. - We will continue to follow patient while he remains inpatient. Patient may follow-up with Dr. Rodriguez in 1 week following discharge.
[2019-09-04 15:15] VITALS: BMI 32.5
--- NOTE | 2019-09-04 23:13 | P.DS ---
Providers Date of admission: 09/04/19 10:33 Expected date of discharge: 09/04/19 Attending physician: Guy Mendoza Consults: 09/02/19 16:54 Consult Physician Routine Consulting Provider: Jasmyn Leonard Consult Reason/Comments: Syncope Do you want consulting provider notified?: Yes 09/03/19 11:17 Consult Physician Routine Consulting Provider: Trey Villalobos Consult Reason/Comments: left shoulder/r knee pain Do you want consulting provider notified?: Yes Primary care physician: Jordon Wood [facility] Course: Chief Complaint: Syncope History of presenting complaint: This is a 54-year-old patient who follows with Dr. wood from [place]. Chronic stable medical conditions include diabetes mellitus type II on insulin pump.,GERD, hypertension, obstructive sleep apnea uses CPAP, chronic pancreatitis, bipolar disorder and chronic low back pain. About 5 days ago patient leaves the house. Retired when he felt a bit dizzy and nearly passed out. Very briefly. Did bump his head to the ground. No double vision. No focal weakness. He did injure his left shoulder and is having some discomfort in the same. Patient also twisted his knee is having. The right knee. Denies any chest pain or palpitation. No fever no chills. She does continue to smoke. X-ray did confirm a hairline fracture of the right tibia-just below the tibial tuberosity. Patient seen by Dr[facility] Patient is to wear immobilizer and weight-bear as tolerated. Carotid Doppler, 2-D echocardiogram, computed tomography scan of the brain did not show any acute findings. Patient advised against smoking. Care was discussed with the patient. Repeat labs outpatient. Discussion and discharge planning more than 35 minutes Consultation: Dr. Velasquez from orthopedics Dr. Chau from neurology Physical examination: VITAL SIGNS: 98.2, 95, 18, 1 3781, 95% room air GENERAL: BMI 35.6, sitting up in bed, somewhat tired EYES: Pupils equal. Conjunctiva normal. HEENT: External appearance of nose and ears normal, oral cavity grossly normal. NECK: JVD not raised; masses not palpable. HEART: First and second heart sounds are normal; no edema. LUNGS: Respiratory rate increased, diminished breath sounds mild wheezing ABDOMEN: Soft, non-tenderness, no guarding rigidity, liver spleen not palpable, no masses palpable. PSYCH: Alert and oriented x3; mood and affect normal. INVESTIGATIONS, reviewed in the clinical context: White count 13.5 hemoglobin 40.3 platelets 234 potassium 4.2 bun 26 creatinine 1.60 Chest x-ray film personally reviewed by me-shows some prominent pulmonary artery Right knee x-ray with cortical lucency anterior tibial timewise metaphysical region. May reflect hairline fracture Computed tomography scan of the brain-aged related to atrophic changes -EKG tracing personally reviewed by me shows-normal sinus rhythm Previous testing: On October 2018 patient's bun was 15 creatinine was 0.97 Assessment: -Syncope likely from dehydration in a patient with acute kidney injury. Denies any cardiac symptoms. Has no other focal neurological symptoms. -Hairline fracture to the right tibia just below the tibial tuberosity. -Diabetes mellitus type 2 chronically insulin pump -GERD -Essential hypertension -Obstructive sleep apnea uses a BiPAP machine -Bipolar disorder -Chronic low back pain -Obesity BMI 31.7 -Chronic nicotine dependence patient cigarette smoker -Acute kidney injury likely prerenal and the patient was also taking baby aspirin, Mobic-improved Disposition: Home Patient Condition at Discharge: Stable Plan - Discharge Summary New Discharge Prescriptions: New Nicotine 21Mg/24Hr Patch [Habitrol] 1 patch TRANSDERM DAILY #14 patch Pravastatin Sodium [Pravachol] 40 mg PO HS #30 tab Continue Fenofibrate Nanocrystallized [Fenofibrate] 145 mg PO DAILY Montelukast [Singulair] 10 mg PO HS Metoprolol Tartrate [Lopressor] 25 mg PO BID QUEtiapine FUMARATE [SEROquel] 300 mg PO HS lamoTRIgine 200 mg PO BID amLODIPine [Norvasc] 5 mg PO DAILY Multivitamins, Thera [Multivitamin (formulary)] 1 tab PO DAILY Ergocalciferol [Vitamin D2 (DRISDOL)] 50,000 unit PO SA Insulin Glargine,Hum.rec.anlog [Basaglar Kwikpen U-100] 74 unit SQ HS Melatonin 10 mg PO HS Albuterol Sulfate [Ventolin HFA] 1 - 2 puff INHALATION RT-Q6H PRN PRN Reason: Shortness Of Breath Buprenorphine HCl/Naloxone HCl [Suboxone 8 mg-2 mg Sl Film] 1 film SL BID Diclofenac Sodium Gel [Voltaren Gel] 2 gm TOPICAL QID Dicyclomine [Bentyl] 20 mg PO Q6H PRN PRN Reason: CRAMPS Doxycycline Monohydrate [Monodox] 100 mg PO BID DULoxetine HCL [Cymbalta] 30 mg PO BID Famotidine 40 mg PO DAILY QUEtiapine [SEROquel] 100 mg PO BID@0800,1200 traZODone HCL [Desyrel] 100 mg PO HS Aspirin EC [Ecotrin Low Dose] 81 mg PO DAILY INSULIN ASPART (NovoLOG) [NovoLOG (formulary)] See Protocol SQ ACHS Changed Meloxicam [Mobic] 7.5 mg PO BID PRN #0 PRN Reason: Pain Discharge Medication List Fenofibrate Nanocrystallized [Fenofibrate] 145 mg PO DAILY 08/07/13 [History] Metoprolol Tartrate [Lopressor] 25 mg PO BID 08/07/13 [History] Montelukast [Singulair] 10 mg PO HS 08/07/13 [History] QUEtiapine FUMARATE [SEROquel] 300 mg PO HS 10/01/16 [History] lamoTRIgine 200 mg PO BID 10/01/16 [History] Multivitamins, Thera [Multivitamin (formulary)] 1 tab PO DAILY 10/22/16 [History] amLODIPine [Norvasc] 5 mg PO DAILY 10/22/16 [History] Ergocalciferol [Vitamin D2 (DRISDOL)] 50,000 unit PO SA 10/31/18 [History] Insulin Glargine,Hum.rec.anlog [Basaglar Kwikpen U-100] 74 unit SQ HS 10/31/18 [History] Melatonin 10 mg PO HS 10/31/18 [History] Albuterol Sulfate [Ventolin HFA] 1 - 2 puff INHALATION RT-Q6H PRN 09/02/19 [History] Aspirin EC [Ecotrin Low Dose] 81 mg PO DAILY 09/02/19 [History] Buprenorphine HCl/Naloxone HCl [Suboxone 8 mg-2 mg Sl Film] 1 film SL BID 09/02/19 [History] DULoxetine HCL [Cymbalta] 30 mg PO BID 09/02/19 [History] Diclofenac Sodium Gel [Voltaren Gel] 2 gm TOPICAL QID 09/02/19 [History] Dicyclomine [Bentyl] 20 mg PO Q6H PRN 09/02/19 [History] Doxycycline Monohydrate [Monodox] 100 mg PO BID 09/02/19 [History] Famotidine 40 mg PO DAILY 09/02/19 [History] INSULIN ASPART (NovoLOG) [NovoLOG (formulary)] See Protocol SQ ACHS 09/02/19 [History] QUEtiapine [SEROquel] 100 mg PO BID@0800,1200 09/02/19 [History] traZODone HCL [Desyrel] 100 mg PO HS 09/02/19 [History] Meloxicam [Mobic] 7.5 mg PO BID PRN #0 09/04/19 [Rx] Nicotine 21Mg/24Hr Patch [Habitrol] 1 patch TRANSDERM DAILY #14 patch 09/04/19 [Rx] Pravastatin Sodium [Pravachol] 40 mg PO HS #30 tab 09/04/19 [Rx] Follow up Appointment(s)/Referral(s): Clotilde Sanchez NPC [Nurse Practitioner] - 1 Week Jordon Wood MD [Primary Care Provider] - 1-2 days Patient Instructions/Handouts: Dehydration (DC), Leg Fracture (ED), Acute Kidney Injury (DC) Discharge Disposition: HOME SELF-CARE
[2019-09-05] MEDS ORDERED: ERGOCALCIFEROL 50,000 UNIT CAP PO SCH (09:00)
== END 2019-09-04 15:10 | disposition home or self-care (01) | DRG 683 ==
LOC: EC 14:28 → 3SCARD 16:50 → OBSVTOIN 09-04 10:33
PROVIDERS: ADMIT Hospitalist; ATTEND Hospitalist
DX: N17.9 Acute kidney failure, unspecified (principal); S82.154A Nondisplaced fracture of right tibial tuberosity, initial encounter for closed fracture; E86.0 Dehydration; M46.96 Unspecified inflammatory spondylopathy, lumbar region; F17.210 Nicotine dependence, cigarettes, uncomplicated; W19.XXXA Unspecified fall, initial encounter; Z96.41 Presence of insulin pump (external) (internal); Y93.01 Activity, walking, marching and hiking; E66.9 Obesity, unspecified; F31.9 Bipolar disorder, unspecified; M54.5 Low back pain; R29.6 Repeated falls; I45.10 Unspecified right bundle-branch block; M25.512 Pain in left shoulder; K21.9 Gastro-esophageal reflux disease without esophagitis; F41.9 Anxiety disorder, unspecified; I10 Essential (primary) hypertension; E11.65 Type 2 diabetes mellitus with hyperglycemia; G47.33 Obstructive sleep apnea (adult) (pediatric); G89.29 Other chronic pain; Z11.59 Encounter for screening for other viral diseases; Z79.1 Long term (current) use of non-steroidal anti-inflammatories (NSAID); Z79.4 Long term (current) use of insulin; Z79.82 Long term (current) use of aspirin; Z79.899 Other long term (current) drug therapy; Z88.8 Allergy status to other drugs, medicaments and biological substances; Z86.14 Personal history of Methicillin resistant Staphylococcus aureus infection; Z90.49 Acquired absence of other specified parts of digestive tract; Z98.1 Arthrodesis status; Z98.890 Other specified postprocedural states; Z82.49 Family history of ischemic heart disease and other diseases of the circulatory system; Z68.31 Body mass index [BMI] 31.0-31.9, adult; X50.1XXA Overexertion from prolonged static or awkward postures, initial encounter
CPT/HCPCS: 36415; 70450; 71046; 76770; 80048; 80053; 81003; 82607; 82746; 83036; 84443; 84484; 85025; 85610; 85730; 86780; 93005; 93306; 93880; 94640; 96360; 96361; 99291

== ENCOUNTER 2019-10-06 20:19 | Inpatient (IN) | payer MEDICARE, OTHER ==
[2019-10-06] MEDS ORDERED: KETOROLAC 30 MG/ML 1 ML VIAL IVP STA (20:52)
[2019-10-06] MEDS ORDERED: SODIUM CHLORIDE 0.9% 1,000 ML IV STA (20:52)
[2019-10-06 21:24] LABS: Basophils # (A) 0.1 k/uL (0-0.2); Basophils % (A) 0 %; Eosinophils # (A) 0.3 k/uL (0-0.7); Eosinophils % (A) 2 %; HCT 44.6 % (39.0-53.0); HGB 14.3 gm/dL (13.0-17.5); Lymphocytes # (A) 3.5 k/uL (1.0-4.8); Lymphocytes % (A) 19 %; MCH 29.2 pg (25.0-35.0); MCV 91.3 fL (80.0-100.0); Mean Platelet Volume 7.3; Monocytes # (A) 0.6 k/uL (0-1.0); Monocytes % (A) 3 %; Neutrophils # (A) 13.5 k/uL (1.3-7.7); Neutrophils % (A) 75 %; Platelet Count 387 k/uL (150-450); RBC 4.89 m/uL (4.30-5.90); RDW 12.6 % (11.5-15.5); WBC 18.1 k/uL (3.8-10.6)
--- NOTE | 2019-10-06 21:27 | ED ---
Abdominal Pain HPI - General Chief Complaint: Abdominal Pain Stated Complaint: Abd Pain Time Seen by Provider: 10/06/19 20:43 Source: patient Mode of arrival: ambulatory - History of Present Illness Initial Comments: Patient is a 54-year-old male, history of diabetes, hypertension, COPD, presenting to the emergency Department with complaints of left-sided abdominal pain that started 2-3 days ago. Patient states he has a history of pancreatitis and feels like this is the same thing. He does admit to history of pancreatic stent as well as cholecystectomy. No other abdominal surgeries. He denies history of fever or chills. He states the pain started in his left side and did wrap around to his left upper quadrant. Patient states the pain has been consistent and increasing over the past 2 days. He states he has been having regular bowel movements, no urinary complaints. He denies any nausea or vomiting or diarrhea. He does admit to being an every day smoker, he denies alcohol use. He has no further complaints at this time. Upon arrival to the ER, his vital signs are stable. - Related Data Home Medications Medication Instructions Recorded Confirmed Fenofibrate Nanocrystallized 145 mg PO DAILY 08/07/13 10/06/19 [Fenofibrate] Metoprolol Tartrate [Lopressor] 25 mg PO BID 08/07/13 10/06/19 Montelukast [Singulair] 10 mg PO HS 08/07/13 10/06/19 QUEtiapine FUMARATE [SEROquel] 300 mg PO HS 10/01/16 10/06/19 lamoTRIgine 200 mg PO BID 10/01/16 10/06/19 Multivitamins, Thera [Multivitamin 1 tab PO DAILY 10/22/16 10/06/19 (formulary)] amLODIPine [Norvasc] 5 mg PO DAILY 10/22/16 10/06/19 Ergocalciferol [Vitamin D2 50,000 unit PO SA 10/31/18 10/06/19 (DRISDOL)] Insulin Glargine,Hum.rec.anlog 72 unit SQ HS 10/31/18 10/06/19 [Basaglar Kwikpen U-100] Melatonin 10 mg PO HS 10/31/18 10/06/19 Albuterol Sulfate [Ventolin HFA] 1 - 2 puff INHALATION RT-Q6H PRN 09/02/19 10/06/19 Aspirin EC [Ecotrin Low Dose] 81 mg PO DAILY 09/02/19 10/06/19 DULoxetine HCL [Cymbalta] 30 mg PO BID 09/02/19 10/06/19 Diclofenac Sodium Gel [Voltaren 2 gm TOPICAL QID 09/02/19 10/06/19 Gel] Dicyclomine [Bentyl] 20 mg PO Q6H PRN 09/02/19 10/06/19 Doxycycline Monohydrate [Monodox] 100 mg PO BID 09/02/19 10/06/19 Famotidine 40 mg PO DAILY 09/02/19 10/06/19 INSULIN ASPART (NovoLOG) [NovoLOG See Protocol SQ ACHS 09/02/19 10/06/19 (formulary)] QUEtiapine [SEROquel] 100 mg PO BID@0800,1200 09/02/19 10/06/19 traZODone HCL [Desyrel] 100 mg PO HS 09/02/19 10/06/19 Gabapentin [Neurontin] 300 mg PO BID 10/06/19 10/06/19 Previous Rx's Medication Instructions Recorded Meloxicam [Mobic] 7.5 mg PO BID PRN #0 09/04/19 Pravastatin Sodium [Pravachol] 40 mg PO HS #30 tab 09/04/19 Allergies Allergy/AdvReac Type Severity Reaction Status Date / Time haloperidol [From Haldol] AdvReac Hallucinati Verified 10/06/19 21:31 ons haloperidol lactate AdvReac Hallucinati Verified 10/06/19 21:31 [From Haldol] ons Review of Systems ROS Statement: Those systems with pertinent positive or pertinent negative responses have been documented in the HPI. ROS Other: All systems not noted in ROS Statement are negative. Past Medical History Past Medical History: Diabetes Mellitus, GERD/Reflux, Hypertension, Osteo arthritis (OA), Sleep Apnea/CPAP/BIPAP Additional Past Medical History / Comment(s): chronic back pain, uses BIPAP, osteomyolitis in spine after fusion surgery, pancreatitis History of Any Multi-Drug Resistant Organisms: MRSA Date of last positivie culture/infection: 11/03/2008 MDRO Source:: spine Past Surgical History: Cholecystectomy Additional Past Surgical History / Comment(s): spinal fusion at L4 and L5, pancreatic surgery for pseudocyst w/stent Past Anesthesia/Blood Transfusion Reactions: No Reported Reaction Past Psychological History: Anxiety, Bipolar, Depression Smoking Status: Current every day smoker Past Alcohol Use History: None Reported Past Drug Use History: None Reported - Past Family History Mother Family Medical History: Hypertension Additional Family Medical History / Comment(s): Pt states mother had no health problems. Father Family Medical History: No Reported History Additional Family Medical History / Comment(s): pt stated his father is - had no medicals problems and of natural causes. General Exam - General Exam Comments Initial Comments: GENERAL: Patient is well-developed and well-nourished. Patient is nontoxic and in no acute distress. HEAD: Atraumatic, normocephalic. EYES: Pupils equal round and reactive to light, extraocular movements intact, sclera anicteric, conjunctiva are normal. Eyelids were unremarkable. ENT: TMs normal, nares patent, oropharynx clear without exudates. Moist mucous membranes. NECK: Normal range of motion, supple without lymphadenopathy or JVD. LUNGS: Unlabored respirations. Breath sounds clear to auscultation bilaterally and equal. No wheezes rales or rhonchi. HEART: Regular rate and rhythm without murmurs, rubs or gallops. ABDOMEN: Patient has tenderness with palpation of the left side of the abdomen, left upper quadrant, epigastric area. Soft, normoactive bowel sounds. No masses appreciated. : Deferred MUSCULOSKELETAL: Normal extremities with adequate strength and normal range of motion, no pitting or edema. No clubbing or cyanosis. NEUROLOGICAL: Patient is alert and oriented x 3. Motor and sensory are also intact. Normal speech, normal gait. PSYCH: Normal mood, normal affect. SKIN: Warm, Dry, normal turgor, no rashes or lesions noted. Course Vital Signs 10/06/19 20:23 Temperature 98.5 F Pulse Rate 105 H Respiratory 17 Rate Blood Pressure 133/80 O2 Sat by Pulse 97 Oximetry Medical Decision Making - Medical Decision Making Patient is a 54-year-old male here for left upper quadrant pain 2-3 days. He doesn't history of pancreatitis and feels this feels similar. His vital signs are stable. Labwork revealed white count of 18.1, sodium is low at 131, glucose is 254, lactic acid is 1.4, lipase is 478. Computed tomography scan does show a pseudocyst which is stable on previous exam on his pancreas, no other acute findings. He was given fluids, pain control. He reports only very mild improvement in his symptoms. I will increase his pain meds. Given patient's age, white count, elevated lipase, I did recommend admission for acute pancreatitis. Patient is in agreement with this plan of care. Patient will be continued on fluids and pain control. Patient was accepted by Dr. Mendoza, GI consult. Case discussed with Dr. Ryan. - Lab Data Result diagrams: 10/06/19 21:07 10/06/19 21:07 Lab Results 10/06/19 10/06/19 10/06/19 Range/Units 21:07 21:07 21:07 WBC 18.1 H (3.8-10.6) k/uL RBC 4.89 (4.30-5.90) m/uL Hgb 14.3 (13.0-17.5) gm/dL Hct 44.6 (39.0-53.0) % MCV 91.3 (80.0-100.0) fL MCH 29.2 (25.0-35.0) pg MCHC 32.0 (31.0-37.0) g/dL RDW 12.6 (11.5-15.5) % Plt Count 387 (150-450) k/uL Neutrophils % 75 % Lymphocytes % 19 % Monocytes % 3 % Eosinophils % 2 % Basophils % 0 % Neutrophils # 13.5 H (1.3-7.7) k/uL Lymphocytes # 3.5 (1.0-4.8) k/uL Monocytes # 0.6 (0-1.0) k/uL Eosinophils # 0.3 (0-0.7) k/uL Basophils # 0.1 (0-0.2) k/uL PT 10.2 (9.0-12.0) sec INR 1.0 (<1.2) APTT 25.4 (22.0-30.0) sec Sodium 131 L (137-145) mmol/L Potassium 4.4 (3.5-5.1) mmol/L Chloride 95 L (98-107) mmol/L Carbon Dioxide 27 (22-30) mmol/L Anion Gap 9 mmol/L BUN 25 H (9-20) mg/dL Creatinine 0.84 (0.66-1.25) mg/dL Est GFR (CKD-EPI)AfAm >90 (>60 ml/min/1.73 sqM) Est GFR (CKD-EPI)NonAf >90 (>60 ml/min/1.73 sqM) Glucose 254 H (74-99) mg/dL Plasma Lactic Acid Jerrell (0.7-2.0) mmol/L Calcium 9.9 (8.4-10.2) mg/dL Total Bilirubin 0.7 (0.2-1.3) mg/dL AST 29 (17-59) U/L ALT 25 (4-49) U/L Alkaline Phosphatase 167 H (38-126) U/L Total Protein 6.8 (6.3-8.2) g/dL Albumin 3.9 (3.5-5.0) g/dL Amylase 58 (30-110) U/L Lipase 478 H (23-300) U/L 10/06/19 Range/Units 21:07 WBC (3.8-10.6) k/uL RBC (4.30-5.90) m/uL Hgb (13.0-17.5) gm/dL Hct (39.0-53.0) % MCV (80.0-100.0) fL MCH (25.0-35.0) pg MCHC (31.0-37.0) g/dL RDW (11.5-15.5) % Plt Count (150-450) k/uL Neutrophils % % Lymphocytes % % Monocytes % % Eosinophils % % Basophils % % Neutrophils # (1.3-7.7) k/uL Lymphocytes # (1.0-4.8) k/uL Monocytes # (0-1.0) k/uL Eosinophils # (0-0.7) k/uL Basophils # (0-0.2) k/uL PT (9.0-12.0) sec INR (<1.2) APTT (22.0-30.0) sec Sodium (137-145) mmol/L Potassium (3.5-5.1) mmol/L Chloride (98-107) mmol/L Carbon Dioxide (22-30) mmol/L Anion Gap mmol/L BUN (9-20) mg/dL Creatinine (0.66-1.25) mg/dL Est GFR (CKD-EPI)AfAm (>60 ml/min/1.73 sqM) Est GFR (CKD-EPI)NonAf (>60 ml/min/1.73 sqM) Glucose (74-99) mg/dL Plasma Lactic Acid Jerrell 1.4 (0.7-2.0) mmol/L Calcium (8.4-10.2) mg/dL Total Bilirubin (0.2-1.3) mg/dL AST (17-59) U/L ALT (4-49) U/L Alkaline Phosphatase (38-126) U/L Total Protein (6.3-8.2) g/dL Albumin (3.5-5.0) g/dL Amylase (30-110) U/L Lipase (23-300) U/L Disposition Clinical Impression: Pancreatitis, Leukocytosis Disposition: ADMITTED IP TO THIS [facility] Condition: Stable Referrals: Jordon Wood MD [Primary Care Provider] - 1-2 days Decision Date: 10/06/19 Decision Time: 22:36
[2019-10-06 21:32] LABS: ALT 25 U/L (4-49); AST 29 U/L (17-59); African American GFR (CKD) >90 (>60 ml/min/1.73 sqM); Albumin 3.9 g/dL (3.5-5.0); Alkaline Phosphatase 167 U/L (38-126); Amylase 58 U/L (30-110); Anion Gap 9 mmol/L; Blood Urea Nitrogen 25 mg/dL (9-20); Calcium 9.9 mg/dL (8.4-10.2); Carbon Dioxide 27 mmol/L (22-30); Chloride 95 mmol/L (98-107); Glucose 254 mg/dL (74-99); Non-African American GFR(CKD) >90 (>60 ml/min/1.73 sqM); Partial Thromboplastin Time 25.4 sec (22.0-30.0); Potassium 4.4 mmol/L (3.5-5.1); Prothrombin Time 10.2 sec (9.0-12.0); Sodium 131 mmol/L (137-145); Total Bilirubin 0.7 mg/dL (0.2-1.3); Total Protein 6.8 g/dL (6.3-8.2)
--- NOTE | 2019-10-06 22:16 | CT ---
EXAMINATION TYPE: CT abdomen pelvis w con DATE OF EXAM: 10/06/2019 COMPARISON: 10/30/2018 HISTORY: Left upper quadrant abdominal pain CT DLP: 1868.40 mGycm Automated exposure control for dose reduction was used. CONTRAST: Performed with IV Contrast, patient injected with 100 mL of Isovue 300. Multiple axial sections were obtained from the diaphragm to the floor the pelvis with IV contrast FINDINGS: Lung bases are clear. There is no pleural effusion. Heart size is normal. There is no pericardial eff usion. Liver spleen appear normal. There are clips from cholecystectomy. Bile ducts are not dilated. There i s thin wall 3.5 x 2.5 cm cyst on the superior aspect of the body of the pancreas. Unchanged. The panc reatic duct is not dilated. There is no adrenal mass. Kidneys show satisfactory contrast opacification. There is [address] lower pole right kidney. There is no hydronephrosis. Ureters are not dilated. There is no retroper itoneal adenopathy. Bladder distends smoothly. There is right hip prosthesis. The appendix is posteri or and appears normal. There is no mesenteric edema. There is no ascites or free air. There is no bowel obstruction. There i s posterior fusion surgery in the lumbar spine at L4-5. There is moderate L4-5 disc space narrowing. The bony pelvis is intact. There is some degree of spinal stenosis at L4-5. Detail is limited by meta l artifact. IMPRESSION: Normal appendix. No renal stone or obstruction. Thin wall cyst on the body of the pancreas consistent with a pseudocyst unchanged compared to old exa m and consistent with benign disease.
[2019-10-06] MEDS ORDERED: MORPHINE SULFATE 4 MG/ML SYRINGE IVP STA (22:28)
[2019-10-06] MEDS ORDERED: NALOXONE 0.4 MG/ML 1 ML VIAL IV PRN (22:57)
[2019-10-06 23:12] LABS: Appearance,Urine Clear (Clear); Bilirubin,Urine Negative (Negative); Blood,Urine Negative (Negative); Color,Urine Yellow; Glucose,Urine (UA) 1+ (Negative); Ketones,Urine Negative (Negative); Leukocyte Esterase,Urine Negative (Negative); Nitrite,Urine Negative (Negative); Protein,Urine Negative (Negative)
[2019-10-06 23:15] LABS: Specific Gravity,Urine 1.049 (1.001-1.035)
[2019-10-07] MEDS ORDERED: ONDANSETRON 4 MG/2 ML VIAL IVP PRN
[2019-10-07] MEDS ORDERED: ACETAMINOPHEN TAB 325 MG TAB PO PRN
[2019-10-07] MEDS: MORPHINE SULFATE 4 MG/ML SYRINGE IV PRN ×6 (01:28→20:39)
[2019-10-07] MEDS: KETOROLAC 30 MG/ML 1 ML VIAL IVP PRN ×3 (01:59→22:21)
[2019-10-07] MEDS: SODIUM CHLORIDE 0.9% 1,000 ML IV SCH ×2 (02:21→12:21)
[2019-10-07 07:22] LABS: Glucose,Whole Blood 182 mg/dL (75-99)
[2019-10-07] MEDS: lamoTRIgine 100 MG TAB PO SCH ×2 (10:04→20:42)
[2019-10-07] MEDS: QUEtiapine 100 MG TAB PO SCH ×3 (10:04→20:51)
[2019-10-07] MEDS: amLODIPine 5 MG TAB PO SCH (10:05)
[2019-10-07] MEDS: METOPROLOL TARTRATE 25 MG TAB PO SCH ×2 (10:05→20:43)
[2019-10-07] MEDS: GABAPENTIN 300 MG CAP PO SCH ×2 (10:06→20:42)
[2019-10-07] MEDS: ASPIRIN 81 MG PO SCH (10:07)
[2019-10-07] MEDS: DULoxetine HCL 30 MG CAPSULE.DR PO SCH ×2 (10:07→20:41)
[2019-10-07] MEDS: FAMOTIDINE 20 MG TAB PO SCH (10:07)
[2019-10-07] MEDS ORDERED: DICYCLOMINE 20 MG TAB PO PRN (10:15)
[2019-10-07 11:11] LABS: Glucose,Whole Blood 187 mg/dL (75-99)
[2019-10-07 12:20] LABS: Basophils # (A) 0.1 k/uL (0-0.2); Basophils % (A) 0 %; Eosinophils # (A) 0.3 k/uL (0-0.7); Eosinophils % (A) 2 %; HCT 44.2 % (39.0-53.0); HGB 14.1 gm/dL (13.0-17.5); Lymphocytes # (A) 2.5 k/uL (1.0-4.8); Lymphocytes % (A) 20 %; MCH 29.8 pg (25.0-35.0); MCHC 31.8 g/dL (31.0-37.0); MCV 93.6 fL (80.0-100.0); Mean Platelet Volume 7.1; Monocytes # (A) 0.5 k/uL (0-1.0); Monocytes % (A) 4 %; Neutrophils % (A) 73 %; Platelet Count 281 k/uL (150-450); RBC 4.72 m/uL (4.30-5.90); RDW 12.8 % (11.5-15.5); WBC 12.4 k/uL (3.8-10.6)
[2019-10-07] MEDS: DICLOFENAC SODIUM GEL 100 GM TUBE TOPICAL SCH ×3 (12:21→22:28)
[2019-10-07] MEDS: FENOFIBRATE 160 MG TAB PO SCH (12:21)
[2019-10-07 12:38] LABS: Cholesterol 152 mg/dL (<200); HDL Cholesterol 53 mg/dL (40-60); LDL Cholesterol,Calculated 63 mg/dL (0-99); Triglycerides 180 mg/dL (<150)
[2019-10-07] MEDS: methylPREDNISolone SOD SUCCI 125 MG/2 ML VIAL IV SCH ×2 (14:46→20:49)
[2019-10-07 17:27] LABS: Glucose,Whole Blood 214 mg/dL (75-99)
[2019-10-07] MEDS ORDERED: INSULIN ASPART (NovoLOG) 100 UNIT/ML VIAL SQ SCH (17:30)
--- NOTE | 2019-10-07 19:05 | MR ---
EXAMINATION TYPE: MR cervical spine wo/w con DATE OF EXAM: 10/07/2019 COMPARISON: CT scan cervical spine 07/26/2011 HISTORY: Left hand numb CONTRAST: Standard multiplanar, multisequence MRI departmental protocol utilizing 11 mL intravenous Gadavist ga dolinium contrast. There is mild straightening of the cervical spine. There is loss of height of C7 vertebral body with decreased signal in the anterior body on the T1 images. This also has decreased signal on T2 images a nd could relate to osteosclerosis. There is a small posterior disc herniation at C6-7 impinging on th e spinal canal. There is slight deflection of the cervical spinal cord. Spinal canal measures 7.5 mm at C6-7. Cervical cord shows no evidence of edema. There is uncovertebral spurring with neural forami nal narrowing on the left side at C6-7. There is mild uncovertebral spurring on the right side at C6- 7. The visualized brainstem appears intact. The remaining cervical vertebra appear intact. IMPRESSION: Mild compression fracture of C7 is probably old. There is some neural foraminal impingement bilateral ly at C6-7 and worse on the left side due to uncovertebral spurring and posterior disc bulging. There is a mild relative spinal stenosis at C6-7. C7 fracture appears new compared to old CT scan of 2011.
[2019-10-07 20:07] LABS: Glucose,Whole Blood 454 mg/dL (75-99)
[2019-10-07 20:07] LABS: Glucose,Whole Blood 503 mg/dL (75-99)
[2019-10-07] MEDS ORDERED: INSULIN REGULAR BOLUS (FROM DRIP BAG) IV ONE (20:24)
[2019-10-07] MEDS: MELATONIN 5 MG TABLET PO SCH (20:42)
[2019-10-07] MEDS: PRAVASTATIN SODIUM 40 MG TAB PO SCH (20:43)
[2019-10-07] MEDS: MONTELUKAST 10 MG TAB PO SCH (20:43)
[2019-10-07] MEDS: traZODone HCL 100 MG TAB PO SCH (20:44)
[2019-10-07] MEDS ORDERED: INSULIN DETEMIR (LEVEMIR) 100 UNIT/ML SYR SQ SCH (21:00)
[2019-10-07] MEDS ORDERED: INSULIN REGULAR 100 UNIT/ML VIAL IV ONE (21:05)
[2019-10-07] MEDS ORDERED: INSULIN REGULAR 100 UNIT in SODIUM CHLORIDE 0.9% 100 ML IV SCH (21:15)
[2019-10-07 21:21] LABS: Glucose,Whole Blood 409 mg/dL (75-99)
--- NOTE | 2019-10-07 21:42 | P.HPIM ---
History of Present Illness H&P Date: 10/07/19 Chief Complaint: Abdominal pain History of presenting complaint: This is a 54-year-old patient who follows with Dr. thomas from [place]. Chronic stable medical conditions include diabetes mellitus type II on insulin pump.,GERD, hypertension, obstructive sleep apnea uses CPAP, chronic pancreatitis, bipolar disorder and chronic low back pain. Recently in the hospital with syncope and a fall. Found to have a hairline fracture to the right tibia just below the tibial tuberosity. Patient now presents with 3 days of left lower quadrant pain. Has been having bowel movements. No nausea vomiting. Has some low-grade fever. Patient also follow up with Dr. Shanks from orthopedic spine. Her having neck pain. He's also been having left arm weakness. And some numbness. Due for an MRI. Patient has continued to smoke Review of systems: GEN.: Tired EYES: None HEENT: None NECK: None RESPIRATORY: Occasional wheezing CARDIOVASCULAR: None GASTROINTESTINAL: As above GENITOURINARY: None MUSCULOSKELETAL: Chronic low back pain, and also neck pain LYMPHATICS: None HEMATOLOGICAL: None PSYCHIATRY: None NEUROLOGICAL: Left arm weakness Past medical history: Diabetes on insulin pump, chronic pancreatitis, GERD, hypertension, primary osteoarthritis, sleep apnea uses CPAP, arthritis of the lumbar spine, Social history: Lives with his roommate and a pet dog. Has a BiPAP at home. Patient be smoking over 35 years, currently half a pack a day. History of alcohol abuse in the past close to 3 years ago. Family history: Hypertension Physical examination: VITAL SIGNS: 98.5, 105, 17, 133/80, 97% on room air GENERAL: BMI 31.7, sitting at edge of bed, awake 100 distressed EYES: Pupils equal. Conjunctiva normal. HEENT: External appearance of nose and ears normal, oral cavity grossly normal. NECK: JVD not raised; masses not palpable. HEART: First and second heart sounds are normal; no edema. LUNGS: Respiratory rate increased, diminished breath sounds mild wheezing ABDOMEN: Soft, left-sided tenderness,, no guarding rigidity, liver spleen not palpable, no masses palpable. PSYCH: Alert and oriented x3; mood and affect normal. NEUROLOGICAL: Cranial nerves grossly intact; no facial asymmetry, decreased bone of the left arm 4 / 5 LYMPHATICS: No lymph nodes palpable in the axilla and neck INVESTIGATIONS, reviewed in the clinical context: White count 8.1 hemoglobin 14.3 platelets 387 potassium 4.4 creatinine 0.84, lipase 478 Computed tomography scan of the abdomen and pelvis with contrast-findings noted. Including pseudocyst unchanged from previous exam. Previous testing: On October 2018 patient's bun was 15 creatinine was 0.97 Assessment: -Patient had 3 days of left-sided abdominal pain. No guarding rigidity. No nausea vomiting. Slight elevation of lipase. This could be acute flareup of chronic pancreatitis. Abdominal CT scan relatively benign-appearing. Patient is made nothing by mouth in the ER. -Left arm weakness and neck pain likely from cervical spine radiculopathy and possibly nerve encroachment to be followed by Dr. Shanks -Diabetes mellitus type 2 chronically insulin pump -GERD -Essential hypertension -Obstructive sleep apnea uses a BiPAP machine -Bipolar disorder -Chronic low back pain -Obesity BMI 31.7 -Chronic nicotine dependence patient cigarette smoker -COPD in a current smoker Plan: Patient was started on clear liquids. Home medications resumed. Consultation made to GI and also Dr. Shanks from orthopedics. Lovenox for DVT prophylaxis. Care was discussed with the patient. Questions answered. 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, pancreatitis History of Any Multi-Drug Resistant Organisms: MRSA Date of last positivie culture/infection: 11/03/2008 MDRO Source:: spine Past Surgical History: Cholecystectomy Additional Past Surgical History / Comment(s): spinal fusion at L4 and L5, pancreatic surgery for pseudocyst w/stent Past Anesthesia/Blood Transfusion Reactions: No Reported Reaction Past Psychological History: Anxiety, Bipolar, Depression Additional Psychological History / Comment(s): pt states gets minor panic attacks. PT LIVES WITH A ROOMATE AND 1 PET DOF. NO HOME CARE SERVICES. HAS BIPAP AND 02 CONCENTRATOR STATES HE" USES 6 LITERS W/ BIPAP AT HS", INSULIN PUMP Smoking Status: Current every day smoker Past Alcohol Use History: None Reported Additional Past Alcohol Use History / Comment(s): 1/2 ppd Past Drug Use History: None Reported Additional Drug Use History / Comment(s): Pt has hx of opiate abuse- quit 4 years ago . - Past Family History Mother Family Medical History: Hypertension Additional Family Medical History / Comment(s): Pt states mother had no health problems. Father Family Medical History: No Reported History Additional Family Medical History / Comment(s): pt stated his father is - had no medicals problems and of natural causes. Medications and Allergies Home Medications Medication Instructions Recorded Confirmed Type Fenofibrate Nanocrystallized 145 mg PO DAILY 08/07/13 10/06/19 History [Fenofibrate] Metoprolol Tartrate [Lopressor] 25 mg PO BID 08/07/13 10/06/19 History Montelukast [Singulair] 10 mg PO HS 08/07/13 10/06/19 History QUEtiapine FUMARATE [SEROquel] 300 mg PO HS 10/01/16 10/06/19 History lamoTRIgine 200 mg PO BID 10/01/16 10/06/19 History Multivitamins, Thera [Multivitamin 1 tab PO DAILY 10/22/16 10/06/19 History (formulary)] amLODIPine [Norvasc] 5 mg PO DAILY 10/22/16 10/06/19 History Ergocalciferol [Vitamin D2 50,000 unit PO SA 10/31/18 10/06/19 History (DRISDOL)] Insulin Glargine,Hum.rec.anlog 72 unit SQ HS 10/31/18 10/06/19 History [Basaglar Kwikpen U-100] Melatonin 10 mg PO HS 10/31/18 10/06/19 History Albuterol Sulfate [Ventolin HFA] 1 - 2 puff INHALATION RT-Q6H PRN 09/02/19 0 10/06/19 History Aspirin EC [Ecotrin Low Dose] 81 mg PO DAILY 09/02/19 10/06/19 History DULoxetine HCL [Cymbalta] 30 mg PO BID 09/02/19 10/06/19 History Diclofenac Sodium Gel [Voltaren 2 gm TOPICAL QID 09/02/19 10/06/19 History Gel] Dicyclomine [Bentyl] 20 mg PO Q6H PRN 09/02/19 10/06/19 History Doxycycline Monohydrate [Monodox] 100 mg PO BID 09/02/19 10/06/19 History Famotidine 40 mg PO DAILY 09/02/19 10/06/19 History INSULIN ASPART (NovoLOG) [NovoLOG See Protocol SQ ACHS 09/02/19 10/06/19 History (formulary)] QUEtiapine [SEROquel] 100 mg PO BID@0800,1200 09/02/19 10/06/19 History traZODone HCL [Desyrel] 100 mg PO HS 09/02/19 10/06/19 History Meloxicam [Mobic] 7.5 mg PO BID PRN #0 09/04/19 10/06/19 Rx Pravastatin Sodium [Pravachol] 40 mg PO HS #30 tab 09/04/19 10/06/19 Rx Gabapentin [Neurontin] 300 mg PO BID 10/06/19 10/06/19 History Allergies Allergy/AdvReac Type Severity Reaction Status Date / Time haloperidol [From Haldol] AdvReac Hallucinati Verified 10/06/19 21:31 ons haloperidol lactate AdvReac Hallucinati Verified 10/06/19 21:31 [From Haldol] ons Physical Exam Vitals: Vital Signs Temp Pulse Pulse Resp BP BP Pulse Ox 10/07/19 04:22 98.0 F 82 18 163/82 94 L 10/07/19 00:30 98.1 F 91 18 162/98 93 L 10/06/19 23:47 98.6 F 88 16 144/94 97 10/06/19 20:23 98.5 F 105 H 17 133/80 97 Intake and Output 10/06/19 10/07/19 10/07/19 22:59 06:59 14:59 Other: # Voids 1 Weight 108.862 kg 108.862 kg Results CBC & Chem 7: 10/07/19 11:40 10/06/19 21:07 Labs: Abnormal Lab Results - Last 24 Hours (Table) 10/06/19 10/06/19 10/06/19 Range/Units 21:07 21:07 22:45 WBC 18.1 H (3.8-10.6) k/uL Neutrophils # 13.5 H (1.3-7.7) k/uL Sodium 131 L (137-145) mmol/L Chloride 95 L (98-107) mmol/L BUN 25 H (9-20) mg/dL Glucose 254 H (74-99) mg/dL POC Glucose (mg/dL) (75-99) mg/dL Alkaline Phosphatase 167 H (38-126) U/L Lipase 478 H (23-300) U/L Ur Specific [place] 1.049 H (1.001-1.035) Urine Glucose (UA) 1+ H (Negative) 10/07/19 Range/Units 07:20 WBC (3.8-10.6) k/uL Neutrophils # (1.3-7.7) k/uL Sodium (137-145) mmol/L Chloride (98-107) mmol/L BUN (9-20) mg/dL Glucose (74-99) mg/dL POC Glucose (mg/dL) 182 H (75-99) mg/dL Alkaline Phosphatase (38-126) U/L Lipase (23-300) U/L Ur Specific [place] (1.001-1.035) Urine Glucose (UA) (Negative) Thrombosis Risk Factor Assmnt - Choose All That Apply Any of the Below Risk Factors Present?: Yes Each Factor Represents 1 point: Age 41-60 years, Obesity (BMI >25) Other Risk Factors: No Thrombosis Risk Factor Assessment Total Risk Factor Score: 2 Thrombosis Risk Factor Assessment Level: Low Risk
[2019-10-07 21:58] LABS: Glucose,Whole Blood 326 mg/dL (75-99)
[2019-10-07 22:28] LABS: Glucose,Whole Blood 227 mg/dL (75-99)
--- NOTE | 2019-10-07 22:57 | CONS ---
CONSULTATION DATE OF SERVICE: October 07, 2019. REQUESTING PHYSICIAN: Dr. Wood. REASON FOR CONSULTATION: Acute pancreatitis. HISTORY OF PRESENT ILLNESS: The patient is a 54-year-old pleasant white male with history of heavy alcohol abuse in the past. He quit drinking about 8 years ago. Multiple episodes of pancreatitis, admitted to the hospital with acute onset of epigastric pain for the last 2 days duration. He was having some nausea, vomiting. The pain continued to increase and hence he came into the emergency room and subsequently admitted to hospital with mild elevation of lipase consistent with acute pancreatitis. The patient states that approximately 4 or 5 years ago he had a large pseudocyst of the pancreas for which he was transferred to [facility] and had cyst drainage endoscopically. PAST MEDICAL HISTORY: Significant for hypertension, hyperlipidemia, COPD, anxiety, depression, diabetes mellitus, degenerative joint disease. MEDICATIONS: Medications at home include Neurontin, Desyrel, Seroquel, NovoLog, Bentyl, Voltaren, Cymbalta, Ventolin, Drisdol, multivitamin, Norvasc, Lamictal, Fenofibrate, Singulair, Lopressor, and Seroquel. ALLERGIES: TO HALDOL. SOCIAL HISTORY: Chronic smoker, heavy alcohol abuse in the past, quit drinking 8 years ago. PAST SURGICAL HISTORY: Cholecystectomy, pancreatic pseudocyst drainage. FAMILY HISTORY: Mother has hypertension. Father no reported history. REVIEW OF SYSTEMS: CARDIOPULMONARY denies any chest pain, shortness of breath. no dysuria or hematuria. MUSCULOSKELETAL unremarkable. Skin unremarkable. Endocrine unremarkable. Psychiatric unremarkable other than anxiety, depression. ENT: Vision unremarkable. CONSTITUTIONAL: No recent weight loss. No fever, chills, night sweats. PHYSICAL EXAMINATION: He appears comfortable. No apparent distress. Vital signs stable. Blood pressure is 142/86, pulse rate 92, temperature 98.4. HEENT examination unremarkable. Conjunctivae pink. Sclerae anicteric. Oral cavity no lesions. NECK no JVD or lymph node enlargement. CHEST was clear to auscultation. HEART: Regular rate and rhythm. ABDOMEN: Soft, mild tenderness in the epigastric area. Bowel sounds are positive. No organomegaly. EXTREMITIES: No pedal edema. SKIN: No rashes. NEURO: Alert and oriented times three. No focal deficits. LABS: WBC 18.1, hemoglobin 14.2, platelets normal. Basic metabolic panel was within normal limits. BUN 25, creatinine 0.84, lipase was 78 and amylase was 58. AST, ALT normal, alk phos 167, T-bilirubin 0.7. Triglycerides are 180. CT of the abdomen and pelvis done in the emergency room did show a 3.5 x 2.5 cm cyst in the superior aspect of the body of the pancreas unchanged from the prior CT scan done in October of 2018 evidence of cholecystectomy. IMPRESSION: 1. The patient presented to the hospital with epigastric pain for the last 2 days duration, prior history of multiple episodes of chronic pancreatitis related to heavy alcohol abuse in the past. He states that he quit drinking about 7 years ago. Now presents to the hospital with worsening epigastric pain for the last 2 days and mild elevation of lipase consistent with chronic relapsing pancreatitis. CT scan of the abdomen showed a 3.5 x 2.5 cm cyst in the body of the pancreas. 2. Remote history of heavy alcohol abuse. 3. History of hypertension and hyperlipidemia. 4. Longstanding history of diabetes mellitus. 5. Degenerative joint disease. 6. Anxiety, depression. RECOMMENDATIONS: 1. Clear liquid diet. 2. Pain medications as needed. 3. Monitor labs closely. 4. Patient is already started on broad-spectrum antibiotics and recommended to continue. 5. Repeat labs in the morning. 6. 7. Based on her symptoms, we will advance diet as tolerated tomorrow. 8. In regard to the pancreatic pseudocyst, we can watch it closely at this time. 9. We will follow with you. Thank you for this consultation. ANITA / NICOLEN: [id number] /
[2019-10-07 23:32] LABS: Glucose,Whole Blood 101 mg/dL (75-99)
[2019-10-08 00:33] LABS: Glucose,Whole Blood 159 mg/dL (75-99)
[2019-10-08] MEDS: MORPHINE SULFATE 4 MG/ML SYRINGE IV PRN ×6 (00:35→21:28)
[2019-10-08 01:31] LABS: Glucose,Whole Blood 189 mg/dL (75-99)
[2019-10-08] MEDS: SODIUM CHLORIDE 0.9% 1,000 ML IV SCH ×2 (02:58→22:18)
[2019-10-08 03:31] LABS: Glucose,Whole Blood 186 mg/dL (75-99)
[2019-10-08] MEDS: MELOXICAM 7.5 MG TAB PO PRN ×2 (03:39→21:50)
[2019-10-08 05:34] LABS: Glucose,Whole Blood 140 mg/dL (75-99)
[2019-10-08] MEDS: KETOROLAC 30 MG/ML 1 ML VIAL IVP PRN ×2 (05:40→21:53)
[2019-10-08 07:15] LABS: ALT 28 U/L (4-49); AST 28 U/L (17-59); African American GFR (CKD) >90 (>60 ml/min/1.73 sqM); Albumin 3.1 g/dL (3.5-5.0); Alkaline Phosphatase 137 U/L (38-126); Anion Gap 3 mmol/L; Blood Urea Nitrogen 19 mg/dL (9-20); Carbon Dioxide 29 mmol/L (22-30); Chloride 100 mmol/L (98-107); Glucose 144 mg/dL (74-99); Non-African American GFR(CKD) >90 (>60 ml/min/1.73 sqM); Potassium 5.3 mmol/L (3.5-5.1); Sodium 132 mmol/L (137-145); Total Bilirubin 0.5 mg/dL (0.2-1.3); Total Protein 5.7 g/dL (6.3-8.2)
[2019-10-08 07:46] LABS: Glucose,Whole Blood 139 mg/dL (75-99)
[2019-10-08] MEDS: FAMOTIDINE 20 MG TAB PO SCH (07:49)
[2019-10-08] MEDS: FENOFIBRATE 160 MG TAB PO SCH (07:49)
[2019-10-08] MEDS: ASPIRIN 81 MG PO SCH (07:49)
[2019-10-08] MEDS: METOPROLOL TARTRATE 25 MG TAB PO SCH ×2 (07:50→21:33)
[2019-10-08] MEDS: amLODIPine 5 MG TAB PO SCH (07:50)
[2019-10-08] MEDS: DULoxetine HCL 30 MG CAPSULE.DR PO SCH ×2 (07:50→21:33)
[2019-10-08] MEDS: MULTIVITAMINS, THERA 1 EACH TAB PO SCH (07:50)
[2019-10-08] MEDS: GABAPENTIN 300 MG CAP PO SCH ×2 (07:50→21:31)
[2019-10-08] MEDS: methylPREDNISolone SOD SUCCI 125 MG/2 ML VIAL IV SCH (07:50)
[2019-10-08] MEDS: lamoTRIgine 100 MG TAB PO SCH ×2 (07:50→21:32)
[2019-10-08] MEDS: DICLOFENAC SODIUM GEL 100 GM TUBE TOPICAL SCH ×4 (07:53→21:39)
[2019-10-08] MEDS: QUEtiapine 100 MG TAB PO SCH ×3 (08:08→21:32)
[2019-10-08] MEDS: INSULIN ASPART (NovoLOG) 100 UNIT/ML VIAL SQ SCH ×5 (08:08→21:53)
[2019-10-08 09:37] LABS: Glucose,Whole Blood 266 mg/dL (75-99)
[2019-10-08 11:13] LABS: IgG Subclass 3 18.3 mg/dL (11.0-85.0); IgG Subclass 4 30.9 mg/dL (3.0-175.0)
[2019-10-08 11:22] LABS: Glucose,Whole Blood 69 mg/dL (75-99)
[2019-10-08 11:39] LABS: Glucose,Whole Blood 122 mg/dL (75-99)
[2019-10-08 13:09] LABS: Glucose,Whole Blood 301 mg/dL (75-99)
[2019-10-08 13:44] LABS: Glucose,Whole Blood 350 mg/dL (75-99)
--- NOTE | 2019-10-08 14:47 | P.CNOR ---
History of Present Illness - HPI Consult date: 10/08/19 Consult reason: other (Left upper extremity weakness and C7 compression fracture) History of present illness: Patient 54-year-old male who is well known to our service. He seen and examined today at bedside. I also reviewed the MRI. The patient was seen in our office last week as well. We did order an MRI at that point but he presented to the hospital before that was completed. He is currently admitted in regards to acute pancreatitis. He has had history of multiple episodes of pancreatitis in the past and has history of alcohol. Regards to his neck and upper extremity he has been having weakness of his left upper extremity over the past several weeks. He had multiple falls 3 where he fell his shoulder and hit his head. He says he is not particularly having neck pain but he has been having left upper extremity problems and worsening over the past several weeks. He says that now he is unable to use his hand well and unable to extend his arm well. His right upper extremity is doing well. He denies any nausea vomiting. He denies any history of problems with his left upper extremity. He feels weak in his left arm. He denies pain at his neck. Review of Systems Had abdominal pain. He has weakness of left upper extremity and issues of his arm. Otherwise as per his HPI. He denies any fevers or chills. Denies any chest pain. History of lumbar spine surgery. History lumbar discectomy. History lumbar discitis. Past Medical History Past Medical History: Diabetes Mellitus, GERD/Reflux, Hypertension, Osteoarthri tis (OA), Sleep Apnea/CPAP/BIPAP Additional Past Medical History / Comment(s): chronic back pain, uses BIPAP, osteomyolitis in spine after fusion surgery, pancreatitis History of Any Multi-Drug Resistant Organisms: MRSA Year Discovered:: 11/03/2008 MDRO Source:: spine Past Surgical History: Cholecystectomy Additional Past Surgical History / Comment(s): spinal fusion at L4 and L5, pancreatic surgery for pseudocyst w/stent Past Anesthesia/Blood Transfusion Reactions: No Reported Reaction Past Psychological History: Anxiety, Bipolar, Depression Additional Psychological History / Comment(s): pt states gets minor panic attacks. PT LIVES WITH A ROOMATE AND 1 PET DOF. NO HOME CARE SERVICES. HAS BIPAP AND 02 CONCENTRATOR STATES HE" USES 6 LITERS W/ BIPAP AT HS", INSULIN PUMP Smoking Status: Current every day smoker Past Alcohol Use History: None Reported Additional Past Alcohol Use History / Comment(s): 1/2 ppd Past Drug Use History: None Reported Additional Drug Use History / Comment(s): Pt has hx of opiate abuse- quit 4 years ago . - Past Family History Mother Family Medical History: Hypertension Additional Family Medical History / Comment(s): Pt states mother had no health problems. Father Family Medical History: No Reported History Additional Family Medical History / Comment(s): pt stated his father is - had no medicals problems and of natural causes. Medications and Allergies Home Medications Medication Instructions Recorded Confirmed Type Fenofibrate Nanocrystallized 145 mg PO DAILY 08/07/13 10/06/19 History [Fenofibrate] Metoprolol Tartrate [Lopressor] 25 mg PO BID 08/07/13 10/06/19 History Montelukast [Singulair] 10 mg PO HS 08/07/13 10/06/19 History QUEtiapine FUMARATE [SEROquel] 300 mg PO HS 10/01/16 10/06/19 History lamoTRIgine 200 mg PO BID 10/01/16 10/06/19 History Multivitamins, Thera [Multivitamin 1 tab PO DAILY 10/22/16 10/06/19 History (formulary)] amLODIPine [Norvasc] 5 mg PO DAILY 10/22/16 10/06/19 History Ergocalciferol [Vitamin D2 50,000 unit PO SA 10/31/18 10/06/19 History (DRISDOL)] Insulin Glargine,Hum.rec.anlog 72 unit SQ 10/31/18 10/06/19 History [Basaglar Kwikpen U-100] Melatonin 10 mg PO 10/31/18 10/06/19 History Albuterol Sulfate [Ventolin HFA] 1 - 2 puff INHALATION RT-Q6H PRN 09/02/19 10/06/19 History Aspirin EC [Ecotrin Low Dose] 81 mg PO DAILY 09/02/19 10/06/19 History DULoxetine HCL [Cymbalta] 30 mg PO BID 09/02/19 10/06/19 History Diclofenac Sodium Gel [Voltaren 2 gm TOPICAL QID 09/02/19 10/06/19 History Gel] Dicyclomine [Bentyl] 20 mg PO Q6H PRN 09/02/19 10/06/19 History Doxycycline Monohydrate [Monodox] 100 mg PO BID 09/02/19 10/06/19 History Famotidine 40 mg PO DAILY 09/02/19 10/06/19 History INSULIN ASPART (NovoLOG) [NovoLOG See Protocol SQ ACHS 09/02/19 10/06/19 History (formulary)] QUEtiapine [SEROquel] 100 mg PO BID@0800,1200 09/02/19 10/06/19 History traZODone HCL [Desyrel] 100 mg PO HS 09/02/19 10/06/19 History Meloxicam [Mobic] 7.5 mg PO BID PRN #0 09/04/19 10/06/19 Rx Pravastatin Sodium [Pravachol] 40 mg PO HS #30 tab 09/04/19 10/06/19 Rx Gabapentin [Neurontin] 300 mg PO BID 10/06/19 10/06/19 History Allergies Allergy/AdvReac Type Severity Reaction Status Date / Time haloperidol [From Haldol] AdvReac Hallucinati Verified 10/06/19 21:31 ons haloperidol lactate AdvReac Hallucinati Verified 10/06/19 21:31 [From Haldol] ons Physical Examination Osteopathic Statement: *. No significant issues noted on an osteopathic structural exam other than those noted in the History and Physical/Consult. - Shoulder left Appearance: atrophy (At his left upper extremity he has difficulty with extension at his triceps. He essentially has 1 out of 5 extension strength of his triceps. He has about 2 out of 5 dorsiflexion at his left wrist. 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 3 out of 5 thumb extension. He has 4 out of 5 biceps. His his right upper extremity has full active and passive range of motion.) Results - Labs Labs: Abnormal Lab Results - Last 24 Hours (Table) 10/07/19 10/07/19 10/07/19 Range/Units 11:40 17:25 20:02 Sodium (137-145) mmol/L Potassium (3.5-5.1) mmol/L Glucose (74-99) mg/dL POC Glucose (mg/dL) 214 H 503 H (75-99) mg/dL Alkaline Phosphatase (38-126) U/L Total Protein (6.3-8.2) g/dL Albumin (3.5-5.0) g/dL IgG2 150.0 L (169.0-640.0) mg/dL 10/07/19 10/07/19 10/07/19 Range/Units 20:04 21:19 21:54 Sodium (137-145) mmol/L Potassium (3.5-5.1) mmol/L Glucose (74-99) mg/dL POC Glucose (mg/dL) 454 H 409 H 326 H (75-99) mg/dL Alkaline Phosphatase (38-126) U/L Total Protein (6.3-8.2) g/dL Albumin (3.5-5.0) g/dL IgG2 (169.0-640.0) mg/dL 10/07/19 10/07/19 10/08/19 Range/Units 22:24 23:28 00:30 Sodium (137-145) mmol/L Potassium (3.5-5.1) mmol/L Glucose (74-99) mg/dL POC Glucose (mg/dL) 227 H 101 H 159 H (75-99) mg/dL Alkaline Phosphatase (38-126) U/L Total Protein (6.3-8.2) g/dL Albumin (3.5-5.0) g/dL IgG2 (169.0-640.0) mg/dL 10/08/19 10/08/19 10/08/19 Range/Units 01:28 03:28 05:30 Sodium (137-145) mmol/L Potassium (3.5-5.1) mmol/L Glucose (74-99) mg/dL POC Glucose (mg/dL) 189 H 186 H 140 H (75-99) mg/dL Alkaline Phosphatase (38-126) U/L Total Protein (6.3-8.2) g/dL Albumin (3.5-5.0) g/dL IgG2 (169.0-640.0) mg/dL 10/08/19 10/08/19 10/08/19 Range/Units 06:41 07:35 09:24 Sodium 132 L (137-145) mmol/L Potassium 5.3 H (3.5-5.1) mmol/L Glucose 144 H (74-99) mg/dL POC Glucose (mg/dL) 139 H 266 H (75-99) mg/dL Alkaline Phosphatase 137 H (38-126) U/L Total Protein 5.7 L (6.3-8.2) g/dL Albumin 3.1 L (3.5-5.0) g/dL IgG2 (169.0-640.0) mg/dL 10/08/19 10/08/19 10/08/19 Range/Units 11:21 11:38 13:03 Sodium (137-145) mmol/L Potassium (3.5-5.1) mmol/L Glucose (74-99) mg/dL POC Glucose (mg/dL) 69 L 122 H 301 H (75-99) mg/dL Alkaline Phosphatase (38-126) U/L Total Protein (6.3-8.2) g/dL Albumin (3.5-5.0) g/dL IgG2 (169.0-640.0) mg/dL 10/08/19 Range/Units 13:42 Sodium (137-145) mmol/L Potassium (3.5-5.1) mmol/L Glucose (74-99) mg/dL POC Glucose (mg/dL) 350 H (75-99) mg/dL Alkaline Phosphatase (38-126) U/L Total Protein (6.3-8.2) g/dL Albumin (3.5-5.0) g/dL IgG2 (169.0-640.0) mg/dL H & H 10/06/19 10/07/19 Range/Units 21:07 11:40 Hgb 14.3 14.1 (13.0-17.5) gm/dL Hct 44.6 44.2 (39.0-53.0) % Coagulation 10/06/19 Range/Units 21:07 INR 1.0 (<1.2) Result Diagrams: 10/07/19 11:40 10/08/19 06:41 - Diagnostic results Cervical MRI with contrast: report reviewed, image reviewed (Review the imaging cervical spine MRI. There seems to be a compression deformity at C7 it is uncertain age and chronicity. There is disc protrusion particular to the left side causing significant left foraminal stenosis.) Assessment and Plan Assessment: Left upper extremity weakness, Compression fracture C7, Foraminal stenosis C6 7 Acute pancreatitis Plan: Left upper extremity weakness, Compression fracture C7, Foraminal stenosis C6 7 Acute pancreatitis Regards the patient's pancreatitis he is being managed by medicine and the GI service. Certainly he will need to clear this before we can entertain surgical intervention. He would need medical clearance and GI clearance before pursuing surgical intervention. I think that he is a candidate for surgery at his cervical spine. I think this would give him a chance of alleviating some of the symptoms at his left upper extremity and hoping to potentially regain some strength of his left arm. It is difficult to determine the chronicity of the C7 fracture. It was not present in 2011 when he had his computed tomography scan of his neck. It could've happened when he fell recently. He is not having significant neck pain but I would like him to wear his hard cervical collar and it and I instructed him of this. I think that he should undergo anterior cervical decompression with discectomy and fusion with partial corpectomy of C7 and discectomy at C5-C6 7 and fusion at C6 7 once he is stable from a medical and GI standpoint. I think this could give him the best chance of potentially regaining some of the strength and st opping the worsening of his function in his left upper extremity. I discussed this with him at length. I discussed risks, patient alternatives and benefits including but not limited to risk of bleeding risk infection was need for further surgery risk of decreased or loss of motion loss of function malunion nonunion hardware failure nerve damage problems with his voice positive swallowing as well as the fact that surgery may not alleviate his symptoms was explained to him. Patient like to proceed with surgical intervention. We will have him sign informed consent. As his pancreatitis improved when able up her able to pursue surgical intervention this weekend. Time with Patient: Greater than 30
[2019-10-08 17:17] LABS: Glucose,Whole Blood 170 mg/dL (75-99)
--- NOTE | 2019-10-08 20:14 | P.PN ---
Progress Note - Text Progress Note Date: 10/08/19 Chief Complaint: Abdominal pain History of presenting complaint: This is a 54-year-old patient who follows with Dr. thomas from [place]. Chronic stable medical conditions include diabetes mellitus type II on insulin pump.,GERD, hypertension, obstructive sleep apnea uses CPAP, chronic pancreatitis, bipolar disorder and chronic low back pain. Recently in the hospital with syncope and a fall. Found to have a hairline fracture to the right tibia just below the tibial tuberosity. Patient now presents with 3 days of left lower quadrant pain. Has been having bowel movements. No nausea vomiting. Has some low-grade fever. Patient also follow up with Dr. Shanks from orthopedic spine. Her having neck pain. He's also been having left arm weakness. And some numbness. Due for an MRI. Patient has continued to smoke Admitted with recurrent acute pancreatitis, foraminal stenosis at C6-C7 and compression fractures C7 with left arm weakness or necropathy. Made nothing by mouth. IV fluids. Patient is started on IV steroids by orthopedics. Accu- Cheks ran tired to 400s particularly insulin drip. Today-has been this morning on insulin drip. Did tolerate a clear liquid diet. Requesting more food. Has been on IV Solu-Medrol. Some decrease in abdominal pain. Review of systems: Was done for constitutional, cardiovascular, GI, pulmonary. relevant finding as above Active Medications Acetaminophen (Tylenol Tab) 650 mg PO Q6HR PRN PRN Reason: Mild Pain or Fever > 100.5 Amlodipine Besylate (Norvasc) 5 mg PO DAILY [facility] Last Admin: 10/08/19 07:50 Dose: 5 mg Documented by: Aspirin (Aspirin) 81 mg PO DAILY [facility] Last Admin: 10/08/19 07:49 Dose: 81 mg Documented by: Diclofenac Sodium (Voltaren Gel) 2 gm TOPICAL QID [facility] Last Admin: 10/08/19 13:11 Dose: 2 gm Documented by: Dicyclomine HCl (Bentyl) 20 mg PO Q6H PRN PRN Reason: CRAMPS Duloxetine HCl (Cymbalta) 30 mg PO BID [facility] Last Admin: 10/08/19 07:50 Dose: 30 mg Documented by: Famotidine (Pepcid) 40 mg PO DAILY [facility] Last Admin: 10/08/19 07:49 Dose: 40 mg Documented by: Fenofibrate (Lofibra) 160 mg PO DAILY [facility] Last Admin: 10/08/19 07:49 Dose: 160 mg Documented by: Gabapentin (Neurontin) 300 mg PO BID [facility] Last Admin: 10/08/19 07:50 Dose: 300 mg Documented by: Sodium Chloride (Saline 0.9%) 1,000 mls @ 75 mls/hr IV .[id number] [facility] Last Admin: 10/08/19 02:58 Dose: Not Given Documented by: Ceftriaxone Sodium 1 gm/ (Sodium Chloride) 50 mls @ 100 mls/hr IVPB Q24HR [facility] Last Admin: 10/08/19 07:51 Dose: 100 mls/hr Documented by: Insulin Aspart (Novolog) 14 unit 0.13 unit/kg (14 unit) SQ AC-TID [facility] Last Admin: 10/08/19 17:27 Dose: 14 unit Documented by: Insulin Aspart (Novolog) 0 unit SQ ACHS [facility]; Protocol Last Admin: 10/08/19 17:27 Dose: Not Given Documented by: Ketorolac Tromethamine (Toradol) 30 mg IVP Q6H PRN PRN Reason: Moderate Pain Stop: 10/11/19 23:01 Last Admin: 10/08/19 05:40 Dose: 30 mg Documented by: Lamotrigine (Lamictal) 200 mg PO BID [facility] Last Admin: 10/08/19 07:50 Dose: 200 mg Documented by: Melatonin (Melatonin) 10 mg PO [facility] Last Admin: 10/07/19 20:42 Dose: 10 mg Documented by: Meloxicam (Mobic) 7.5 mg PO BID PRN PRN Reason: Pain Last Admin: 10/08/19 03:39 Dose: 7.5 mg Documented by: Methylprednisolone Sodium Succinate (Solu-Medrol) 80 mg IV Q12HR [facility] Last Admin: 10/08/19 07:50 Dose: 80 mg Documented by: Metoprolol Tartrate (Lopressor) 25 mg PO BID [facility] Last Admin: 10/08/19 07:50 Dose: 25 mg Documented by: Montelukast Sodium (Singulair) 10 mg PO [facility] Last Admin: 10/07/19 20:43 Dose: 10 mg Documented by: Morphine Sulfate (Morphine Sulfate (Inj)) 4 mg IV Q4HR PRN PRN Reason: Severe Pain Last Admin: 10/08/19 17:13 Dose: 4 mg Documented by: Multivitamins (Theragran) 1 each PO DAILY [facility] Last Admin: 10/08/19 07:50 Dose: 1 each Documented by: Naloxone HCl (Narcan) 0.2 mg IV Q2M PRN PRN Reason: Opioid Reversal Ondansetron HCl (Zofran) 4 mg IVP Q8HR PRN PRN Reason: Nausea And Vomiting Pravastatin Sodium (Pravachol) 40 mg PO [facility] Last Admin: 10/07/19 20:43 Dose: 40 mg Documented by: Quetiapine Fumarate (Seroquel) 100 mg PO BID@0800,1200 [facility] Last Admin: 10/08/19 13:02 Dose: 100 mg Documented by: Quetiapine Fumarate (Seroquel) 300 mg PO HS [facility] Last Admin: 10/07/19 20:51 Dose: 300 mg Documented by: Trazodone HCl (Desyrel) 100 mg PO [facility] Last Admin: 10/07/19 20:44 Dose: 100 mg Documented by: Physical examination: VITAL SIGNS: 98.5, 89, 17, 145/64, 97% room air GENERAL: sitting at edge of bed, awake, less uncomfortable EYES: Pupils equal. Conjunctiva normal. HEENT: External appearance of nose and ears normal, oral cavity grossly normal. NECK: JVD not raised; masses not palpable. HEART: First and second heart sounds are normal; no edema. LUNGS: Respiratory rate increased, diminished breath sounds mild wheezing ABDOMEN: Soft, left-sided tenderness,, no guarding rigidity, liver spleen not palpable, no masses palpable. PSYCH: Alert and oriented x3; mood and affect normal. NEUROLOGICAL: decreased strength of the left arm 4 / 5 INVESTIGATIONS, reviewed in the clinical context: Potassium 5.3 creatinine 0.85 Accu-Cheks noted White count 8.1 hemoglobin 14.3 platelets 387 potassium 4.4 creatinine 0.84, lipase 478 Computed tomography scan of the abdomen and pelvis with contrast-findings noted. Including pseudocyst unchanged from previous exam. Previous testing: On October 2018 patient's bun was 15 creatinine was 0.97 Assessment: -Patient had 3 days of left-sided abdominal pain. No guarding rigidity. No nausea vomiting. Slight elevation of lipase. This could be acute flareup of chronic pancreatitis. Abdominal CT scan relatively benign-appearing. Patient is made nothing by mouth in the ER.-Some improvement -Compression deformity T7 with foraminal stenosis at C6-C7 causing left arm weakness and radicular. -Diabetes mellitus type 2 chronically insulin pump, uncontrolled with hyperglycemia secondary to steroids -GERD -Essential hypertension -Obstructive sleep apnea uses a BiPAP machine -Bipolar disorder -Chronic low back pain -Obesity BMI 31.7 -Chronic nicotine dependence patient cigarette smoker -COPD in a current smoker Plan: Patient advanced to full liquids. On IV Solu-Medrol by orthopedics. Late in the day IV insulin drip discontinued. Cutbacks on Solu-Medrol to 40 mg every 12. Discussed with patient.
--- NOTE | 2019-10-08 20:37 | PN ---
PROGRESS NOTE DATE OF SERVICE: October 08, 2019 Patient is a 54-year-old pleasant white male with history of acute alcoholic pancreatitis, admitted to the hospital 3 days ago with abdominal pain, nausea, vomiting. He is feeling much better today. No nausea, no vomiting. PHYSICAL EXAMINATION: Appears comfortable. VITAL SIGNS: Stable. Blood pressure 125/64, pulse rate 89. Temperature 98.5. HEENT examination unremarkable. Conjunctivae pink. Sclerae anicteric. Oral cavity no lesions. NECK: No JVD or lymph node enlargement. CHEST was clear to auscultation. HEART: Regular rate and rhythm. ABDOMEN soft pulses are positive. EXTREMITIES: No pedal edema. NEURO: He is alert and oriented x3. No focal deficits. LABS: From today, basic metabolic panel is within normal limits. AST and ALT are normal. Alkaline phosphatase is 137. CBC not done. IMPRESSION: 1. Acute pancreatitis resolving. 3. Heavy alcohol abuse. RECOMMENDATIONS: 1. Continue with low-fat diet.. 2. Monitor labs closely. 3. Abstinence from alcohol Thank you for this consultation. MMODL / IJN: [id number] / BULMARO
[2019-10-08 21:19] LABS: Glucose,Whole Blood 356 mg/dL (75-99)
[2019-10-08] MEDS: traZODone HCL 100 MG TAB PO SCH (21:32)
[2019-10-08] MEDS: PRAVASTATIN SODIUM 40 MG TAB PO SCH (21:32)
[2019-10-08] MEDS: MONTELUKAST 10 MG TAB PO SCH (21:33)
[2019-10-08] MEDS: MELATONIN 5 MG TABLET PO SCH (21:33)
[2019-10-08] MEDS: methylPREDNISolone SOD SUCCI 40 MG/ML 1 ML VIAL IV SCH (22:18)
[2019-10-08] MEDS ORDERED: INSULIN ASPART (NovoLOG) 100 UNIT/ML VIAL SQ ONE (22:38)
[2019-10-09] MEDS: MORPHINE SULFATE 4 MG/ML SYRINGE IV PRN ×4 (02:49→20:13)
[2019-10-09] MEDS: KETOROLAC 30 MG/ML 1 ML VIAL IVP PRN ×3 (05:06→17:58)
[2019-10-09] MEDS: SODIUM CHLORIDE 0.9% 1,000 ML IV SCH ×2 (05:25→18:03)
[2019-10-09 07:00] LABS: Glucose,Whole Blood 379 mg/dL (75-99)
[2019-10-09] MEDS: INSULIN ASPART (NovoLOG) 100 UNIT/ML VIAL SQ SCH ×7 (08:08→22:14)
[2019-10-09] MEDS: methylPREDNISolone SOD SUCCI 40 MG/ML 1 ML VIAL IV SCH ×2 (08:10→22:03)
[2019-10-09] MEDS: FAMOTIDINE 20 MG TAB PO SCH (08:10)
[2019-10-09] MEDS: ASPIRIN 81 MG PO SCH (08:10)
[2019-10-09] MEDS: GABAPENTIN 300 MG CAP PO SCH ×2 (08:10→22:04)
[2019-10-09] MEDS: DULoxetine HCL 30 MG CAPSULE.DR PO SCH ×2 (08:11→22:04)
[2019-10-09] MEDS: MULTIVITAMINS, THERA 1 EACH TAB PO SCH (08:11)
[2019-10-09] MEDS: amLODIPine 5 MG TAB PO SCH (08:11)
[2019-10-09] MEDS: lamoTRIgine 100 MG TAB PO SCH ×2 (08:11→22:03)
[2019-10-09] MEDS: FENOFIBRATE 160 MG TAB PO SCH (08:11)
[2019-10-09] MEDS: METOPROLOL TARTRATE 25 MG TAB PO SCH ×2 (08:11→22:03)
[2019-10-09] MEDS: QUEtiapine 100 MG TAB PO SCH ×3 (08:12→22:05)
[2019-10-09] MEDS: DICLOFENAC SODIUM GEL 100 GM TUBE TOPICAL SCH ×4 (08:34→22:09)
[2019-10-09 11:16] LABS: Basophils % (A) 0 %; Eosinophils # (A) 0.1 k/uL (0-0.7); Eosinophils % (A) 1 %; HCT 47.4 % (39.0-53.0); HGB 14.7 gm/dL (13.0-17.5); Lymphocytes # (A) 0.8 k/uL (1.0-4.8); Lymphocytes % (A) 5 %; MCH 29.1 pg (25.0-35.0); MCHC 31.1 g/dL (31.0-37.0); MCV 93.6 fL (80.0-100.0); Mean Platelet Volume 7.2; Monocytes # (A) 0.4 k/uL (0-1.0); Monocytes % (A) 3 %; Neutrophils # (A) 14.4 k/uL (1.3-7.7); Neutrophils % (A) 91 %; Platelet Count 305 k/uL (150-450); RBC 5.06 m/uL (4.30-5.90); RDW 12.8 % (11.5-15.5); WBC 15.8 k/uL (3.8-10.6)
[2019-10-09 11:26] LABS: ALT 28 U/L (4-49); AST 25 U/L (17-59); African American GFR (CKD) >90 (>60 ml/min/1.73 sqM); Albumin 3.9 g/dL (3.5-5.0); Alkaline Phosphatase 147 U/L (38-126); Anion Gap 7 mmol/L; Blood Urea Nitrogen 24 mg/dL (9-20); Calcium 9.7 mg/dL (8.4-10.2); Carbon Dioxide 27 mmol/L (22-30); Chloride 98 mmol/L (98-107); Glucose 342 mg/dL (74-99); Non-African American GFR(CKD) >90 (>60 ml/min/1.73 sqM); Potassium 5.5 mmol/L (3.5-5.1); Sodium 132 mmol/L (137-145); Total Bilirubin 0.5 mg/dL (0.2-1.3); Total Protein 6.7 g/dL (6.3-8.2)
[2019-10-09 12:10] LABS: Glucose,Whole Blood 328 mg/dL (75-99)
--- NOTE | 2019-10-09 13:16 | P.PN ---
Progress Note - Text Progress Note Date: 10/09/19 Orthopedics: Orthopedic spine: Patient is a very pleasant 54-year-old male who is seen and examined at the bedside for further evaluation of his cervical spine left upper extremity. Since being seen examined yesterday he has not had any significant change or improvement of symptoms. He has some discomfort which is not significant. He continues to have significant left upper extremity radiculopathy and pain. He is holding his left arm upright and guarding it. He is very uncomfortable at the bedside. He continues to have pain that radiates radiates down the left upper extremity to the fingers the left hand. He also has significant weakness with his left upper extremity including decorator lighting fixtures, interosseous, and thumb extension most significantly. He does have some improvement of his arm pain if he is able to elevate his left upper extremity above his head and if he sits with his head and cervical flexion. He denies any right upper extremity radiculopathy or weakness. Cervical MRI imaging was performed which showed evidence of si gnificant changes at C6-7 along with C7 fracture. Patient was prescribed a hard cervical collar and has not been wearing this brace much as he's had difficulty with pain control with the brace intact at that exacerbates his pain. He is continued to be seen and examined by medicine and gastroenterology. He is currently being treated for acute pancreatitis. We are planning for surgical intervention at his cervical spine once cleared by medicine and gastroenterology. Physical exam: Patient is awake, alert, and oriented 3 Vital signs stable Good chest excursion with deep inspiration and expiration Abdomen soft nontender Examination of the cervical spine reveals skin is intact with no abrasions, lacerations, or bruises; no erythema, purulence or signs of infection Patient is sitting with his neck in a cervical flexion position as is alleviates his left upper extremity pain Right upper extremity strength is 5/5 throughout range of motion Significant weakness with the left upper extremity including 2/5 with interosseous and thumb extension Left upper extremity strength 3/5 including decorator lighting fixtures Left upper extremity strength 1/5 including triceps Left upper extremity strength is 4/5 including the biceps Patient is holding his left arm in a flexed position guarding it due to pain Patient is able to perform some range of motion with the deltoids, biceps, triceps on the left Evidence of left hand atrophy Pertinent studies: MRI of the cervical spine with contrast taken on 10/08/2019: C7 compression fracture deformity of uncertain age and chronicity; C6-7 posterior disc protrusion particulate to the left resulting in significant left neural foraminal stenosis Assessment: C6-7 left neural foraminal stenosis C7 compression fracture deformity of uncertain age and chronicity Left upper extremity weakness Cervicalgia Acute pancreatitis Plan: 1. Patient has been discussed in detail with Dr. Jose Manuel Barger who has also seen examined the patient at the bedside yesterday following his cervical MRI. At this time, patient does have significant change of his cervical spine at C6-7. He also has evidence of left upper extremity weakness and is experiencing radiculopathy of the left upper extremity. Given his significant physical exam findings along with changes on MRI imaging, at this time we will plan to proceed forward with surgical intervention. The proposed surgical intervention is a C6- 7 anterior cervical decompression and fusion with partial corpectomy of C7. We discussed we would plan to proceed forward with surgical intervention as early as Saturday morning, 10/11/2019, if cleared by medicine and gastroenterology. Patient may continue to eat regular food today and tomorrow but will become nothing by mouth status starting at midnight on 10/11/2019 in anticipation for surgical intervention. We also discussed his C7 fracture and discussed the pa tient should continue to wear his hard cervical collar especially while sitting upright and with activities. Patient had significant difficulty with wearing the hard cervical collar and states it exacerbates his pain further. We discussed he should avoid any strenuous activities with the cervical spine or left upper extremity. We discussed he could benefit from lying down to take some pressure off his cervical spine. Patient states he is ready to proceed forward with surgical intervention once cleared. 2. Continue pain control medications as set forth by medicine; patient does have a significant history of narcotics abuse in the past. We will not currently planned to increase his pain medication. 3. Patient will continue be seen examined by medicine and gastroenterology for his other medical conditions including acute pancreatitis. Patient will need clearance by both providers prior to surgical intervention.
[2019-10-09 18:11] LABS: Glucose,Whole Blood 337 mg/dL (75-99)
[2019-10-09] MEDS: PRAVASTATIN SODIUM 40 MG TAB PO SCH (22:03)
[2019-10-09] MEDS: MONTELUKAST 10 MG TAB PO SCH (22:03)
[2019-10-09] MEDS: MELATONIN 5 MG TABLET PO SCH (22:03)
[2019-10-09] MEDS: traZODone HCL 100 MG TAB PO SCH (22:04)
[2019-10-09 22:10] LABS: Glucose,Whole Blood 269 mg/dL (75-99)
--- NOTE | 2019-10-09 23:17 | P.PN ---
Progress Note - Text Progress Note Date: 10/09/19 Chief Complaint: Abdominal pain History of presenting complaint: This is a 54-year-old patient who follows with Dr. thomas from [place]. Chronic stable medical conditions include diabetes mellitus type II on insulin pump.,GERD, hypertension, obstructive sleep apnea uses CPAP, chronic pancreatitis, bipolar disorder and chronic low back pain. Recently in the hospital with syncope and a fall. Found to have a hairline fracture to the right tibia just below the tibial tuberosity. Patient now presents with 3 days of left lower quadrant pain. Has been having bowel movements. No nausea vomiting. Has some low-grade fever. Patient also follow up with Dr. Shanks from orthopedic spine. Her having neck pain. He's also been having left arm weakness. And some numbness. Due for an MRI. Patient has continued to smoke Admitted with recurrent acute pancreatitis, foraminal stenosis at C6-C7 and compression fractures C7 with left arm weakness or necropathy. Made nothing by mouth. IV fluids. Patient is started on IV steroids by orthopedics. Accu- Cheks ran tired to 400s particularly insulin drip. Today-abdominal pain much better. tolerating liquid diet. Left arm weakness still present.patient does not like wearing the neck collar that has been prescr ibed orthopedics. Review of systems: Was done for constitutional, cardiovascular, GI, pulmonary. relevant finding as above Active Medications Acetaminophen (Tylenol Tab) 650 mg PO Q6HR PRN PRN Reason: Mild Pain or Fever > 100.5 Amlodipine Besylate (Norvasc) 5 mg PO DAILY [facility] Last Admin: 10/09/19 08:11 Dose: 5 mg Documented by: Aspirin (Aspirin) 81 mg PO DAILY [facility] Last Admin: 10/09/19 08:10 Dose: 81 mg Documented by: Diclofenac Sodium (Voltaren Gel) 2 gm TOPICAL QID [facility] Last Admin: 10/09/19 22:09 Dose: Not Given Documented by: Dicyclomine HCl (Bentyl) 20 mg PO Q6H PRN PRN Reason: CRAMPS Duloxetine HCl (Cymbalta) 30 mg PO BID [facility] Last Admin: 10/09/19 22:04 Dose: 30 mg Documented by: Famotidine (Pepcid) 40 mg PO DAILY [facility] Last Admin: 10/09/19 08:10 Dose: 40 mg Documented by: Fenofibrate (Lofibra) 160 mg PO DAILY [facility] Last Admin: 10/09/19 08:11 Dose: 160 mg Documented by: Gabapentin (Neurontin) 300 mg PO BID [facility] Last Admin: 10/09/19 22:04 Dose: 300 mg Documented by: Sodium Chloride (Saline 0.9%) 1,000 mls @ 75 mls/hr IV .[id number] [facility] Last Admin: 10/09/19 18:03 Dose: 75 mls/hr Documented by: Ceftriaxone Sodium 1 gm/ (Sodium Chloride) 50 mls @ 100 mls/hr IVPB Q24HR [facility] Last Admin: 10/09/19 08:07 Dose: 100 mls/hr Documented by: Insulin Aspart (Novolog) 14 unit 0.13 unit/kg (14 unit) SQ AC-TID [facility] Last Admin: 10/09/19 17:58 Dose: 14 unit Documented by: Insulin Aspart (Novolog) 0 unit SQ ACHS [facility]; Protocol Last Admin: 10/09/19 22:14 Dose: 8 unit Documented by: Ketorolac Tromethamine (Toradol) 30 mg IVP Q6H PRN PRN Reason: Moderate Pain Stop: 10/11/19 23:01 Last Admin: 10/09/19 17:58 Dose: 30 mg Documented by: Lamotrigine (Lamictal) 200 mg PO BID [facility] Last Admin: 10/09/19 22:03 Dose: 200 mg Documented by: Melatonin (Melatonin) 10 mg PO [facility] Last Admin: 10/09/19 22:03 Dose: 10 mg Documented by: Meloxicam (Mobic) 7.5 mg PO BID PRN PRN Reason: Pain Last Admin: 10/08/19 21:50 Dose: 7.5 mg Documented by: Methylprednisolone Sodium Succinate (Solu-Medrol) 40 mg IV Q12H [facility] Last Admin: 10/09/19 22:03 Dose: 40 mg Documented by: Metoprolol Tartrate (Lopressor) 25 mg PO BID [facility] Last Admin: 10/09/19 22:03 Dose: 25 mg Documented by: Montelukast Sodium (Singulair) 10 mg PO [facility] Last Admin: 10/09/19 22:03 Dose: 10 mg Documented by: Morphine Sulfate (Morphine Sulfate (Inj)) 4 mg IV Q4HR PRN PRN Reason: Severe Pain Last Admin: 10/09/19 20:13 Dose: 4 mg Documented by: Multivitamins (Theragran) 1 each PO DAILY [facility] Last Admin: 10/09/19 08:11 Dose: 1 each Documented by: Naloxone HCl (Narcan) 0.2 mg IV Q2M PRN PRN Reason: Opioid Reversal Ondansetron HCl (Zofran) 4 mg IVP Q8HR PRN PRN Reason: Nausea And Vomiting Pravastatin Sodium (Pravachol) 40 mg PO [facility] Last Admin: 10/09/19 22:03 Dose: 40 mg Documented by: Quetiapine Fumarate (Seroquel) 100 mg PO BID@0800,1200 [facility] Last Admin: 10/09/19 12:55 Dose: 100 mg Documented by: Quetiapine Fumarate (Seroquel) 300 mg PO [facility] Last Admin: 10/09/19 22:05 Dose: 300 mg Documented by: Trazodone HCl (Desyrel) 100 mg PO [facility] Last Admin: 10/09/19 22:04 Dose: 100 mg Documented by: Physical examination: VITAL SIGNS: 98.6, 87, 18, 113/74, 93% room air GENERAL: sitting at edge of bed, awake, l EYES: Pupils equal. Conjunctiva normal. HEENT: External appearance of nose and ears normal, oral cavity grossly normal. NECK: JVD not raised; masses not palpable. HEART: First and second heart sounds are normal; no edema. LUNGS: Respiratory rate increased, diminished breath sounds mild wheezing ABDOMEN: Soft, left-sided tenderness,, no guarding rigidity, liver spleen not palpable, no masses palpable. PSYCH: Alert and oriented x3; mood and affect normal. NEUROLOGICAL: decreased strength of the left arm 4 / 5 INVESTIGATIONS, reviewed in the clinical context: white count 15.8 hemoglobin 14.7 potassium 5.5 creatinine 0.9 to White count 8.1 hemoglobin 14.3 platelets 387 potassium 4.4 creatinine 0.84, lipase 478 Computed tomography scan of the abdomen and pelvis with contrast-findings noted. Including pseudocyst unchanged from previous exam. Previous testing: On October 2018 patient's bun was 15 creatinine was 0.97 Assessment: -Patient had 3 days of left-sided abdominal pain. No guarding rigidity. No nausea vomiting. Slight elevation of lipase. This could be acute flareup of chronic pancreatitis. Abdominal CT scan relatively benign-appearing. Patient is made nothing by mouth in the ER.-Some improvement -Compression deformity T7 with foraminal stenosis at C6-C7 causing left arm weakness and radicular.-not improving -Diabetes mellitus type 2 chronically insulin pump, uncontrolled with hyperglycemia secondary to steroids -GERD -Essential hypertension -Obstructive sleep apnea uses a BiPAP machine -Bipolar disorder -Chronic low back pain -Obesity BMI 31.7 -Chronic nicotine dependence patient cigarette smoker -COPD in a current smoker Plan: Will change the patient to oral prednisone. Other medications to continue. IV fluids. Orthopedics is planning for doing surgery on Saturday.
[2019-10-10] MEDS: MELOXICAM 7.5 MG TAB PO PRN ×2 (00:04→21:46)
[2019-10-10] MEDS: KETOROLAC 30 MG/ML 1 ML VIAL IVP PRN ×3 (02:43→17:45)
[2019-10-10] MEDS: MORPHINE SULFATE 4 MG/ML SYRINGE IV PRN ×6 (04:01→21:39)
[2019-10-10 06:53] LABS: Glucose,Whole Blood 326 mg/dL (75-99)
[2019-10-10] MEDS: GABAPENTIN 300 MG CAP PO SCH ×2 (08:02→21:45)
[2019-10-10] MEDS: INSULIN ASPART (NovoLOG) 100 UNIT/ML VIAL SQ SCH ×7 (08:02→21:41)
[2019-10-10] MEDS: FAMOTIDINE 20 MG TAB PO SCH (08:02)
[2019-10-10] MEDS: QUEtiapine 100 MG TAB PO SCH ×3 (08:02→21:51)
[2019-10-10] MEDS: ASPIRIN 81 MG PO SCH (08:02)
[2019-10-10] MEDS: DULoxetine HCL 30 MG CAPSULE.DR PO SCH ×2 (08:03→21:45)
[2019-10-10] MEDS: FENOFIBRATE 160 MG TAB PO SCH (08:03)
[2019-10-10] MEDS: MULTIVITAMINS, THERA 1 EACH TAB PO SCH (08:03)
[2019-10-10] MEDS: METOPROLOL TARTRATE 25 MG TAB PO SCH ×2 (08:03→21:46)
[2019-10-10] MEDS: amLODIPine 5 MG TAB PO SCH (08:03)
[2019-10-10] MEDS: lamoTRIgine 100 MG TAB PO SCH ×2 (08:04→21:45)
[2019-10-10 08:51] LABS: African American GFR (CKD) >90 (>60 ml/min/1.73 sqM); Anion Gap 5 mmol/L; Blood Urea Nitrogen 28 mg/dL (9-20); Calcium 9.4 mg/dL (8.4-10.2); Carbon Dioxide 28 mmol/L (22-30); Chloride 98 mmol/L (98-107); Glucose 346 mg/dL (74-99); Non-African American GFR(CKD) 83 (>60 ml/min/1.73 sqM); Potassium 5.5 mmol/L (3.5-5.1); Sodium 131 mmol/L (137-145)
[2019-10-10] MEDS ORDERED: predniSONE 20 MG TAB PO SCH (09:00)
[2019-10-10] MEDS: DICLOFENAC SODIUM GEL 100 GM TUBE TOPICAL SCH ×4 (09:28→21:51)
[2019-10-10 11:17] LABS: Glucose,Whole Blood 265 mg/dL (75-99)
--- NOTE | 2019-10-10 14:01 | P.PN ---
Subjective Progress Note Date: 10/09/19 Principal diagnosis: Acute alcoholic pancreatitis, abdominal pain The patient is seen standing bedside reporting that her abdominal pain is improving. He has tolerated diet. Objective - Vital Signs Vital signs: Vital Signs Temp 98.6 F 10/09/19 12:16 Pulse 87 10/09/19 12:16 Resp 18 10/09/19 12:16 BP 113/74 10/09/19 12:16 Pulse Ox 93 L 10/09/19 12:16 Intake & Output 10/08/19 10/09/19 10/09/19 18:59 06:59 18:59 Intake Total 743.186 6481 Balance 545.736 6163 Intake: Intake, IV Titration 647.867 Amount Insulin Regular 100 unit 7.867 In Sodium Chloride 0.9% 100 ml @ Titrate IV .Q0M [facility] Rx#:[id number] Sodium Chloride 0.9% 1, 640 000 ml @ 75 mls/hr IV . [id number] [facility] Rx#:[id number] Oral 1250 Other: Voiding Method Toilet Toilet Toilet # Voids 3 2 1 - Exam On physical examination, patient appears comfortable in no apparent distress. HEAD: Normocephalic, atraumatic. EYES: No scleral icterus. No conjunctival injection. MOUTH: No lesions, tongue midline. NECK: Trachea midline, no gross abnormalities. ABDOMEN: Soft, obese. Bowel sounds are positive. No organomegaly. No guarding or rigidity. EXTREMITIES: No pedal edema. SKIN: No rashes, no jaundice. NEUROLOGIC: Alert and oriented x3. No focal deficits. - Labs CBC & Chem 7: 10/09/19 10:45 10/10/19 08:13 Labs: Abnormal Lab Results - Last 24 Hours (Table) 10/08/19 10/09/19 10/09/19 Range/Units 21:16 06:57 10:45 WBC 15.8 H (3.8-10.6) k/uL Neutrophils # 14.4 H (1.3-7.7) k/uL Lymphocytes # 0.8 L (1.0-4.8) k/uL Sodium (137-145) mmol/L Potassium (3.5-5.1) mmol/L BUN (9-20) mg/dL Glucose (74-99) mg/dL POC Glucose (mg/dL) 356 H 379 H (75-99) mg/dL Alkaline Phosphatase (38-126) U/L 10/09/19 10/09/19 10/09/19 Range/Units 10:45 12:06 18:02 WBC (3.8-10.6) k/uL Neutrophils # (1.3-7.7) k/uL Lymphocytes # (1.0-4.8) k/uL Sodium 132 L (137-145) mmol/L Potassium 5.5 H (3.5-5.1) mmol/L BUN 24 H (9-20) mg/dL Glucose 342 H (74-99) mg/dL POC Glucose (mg/dL) 328 H 337 H (75-99) mg/dL Alkaline Phosphatase 147 H (38-126) U/L Assessment and Plan (1) Acute pancreatitis Narrative/Plan: 54-year-old male who presented to the hospital with complaints of abdominal pain, nausea and vomiting found to have acute alcoholic pancreatitis. Currently resolving. Current Visit: No Status: Acute Code(s): K85.90 - ACUTE PANCREATITIS WITHOUT NECROSIS OR INFECTION, UNSP SNOMED Code(s): 057695141 (2) Abdominal pain Current Visit: No Status: Acute Code(s): R10.9 - UNSPECIFIED ABDOMINAL PAIN SNOMED Code(s): 48832936 Plan: Supportive care IV fluid hydration Okay for diet as tolerated, low-fat Alcohol abstinence Thank you for allowing us to be dissipated in the care of the patient, the GI service will stand by, please call us back with any questions or concerns
[2019-10-10] MEDS: SODIUM CHLORIDE 0.9% 1,000 ML IV SCH ×2 (15:10→21:44)
[2019-10-10 17:22] LABS: Glucose,Whole Blood 280 mg/dL (75-99)
[2019-10-10 21:19] LABS: Glucose,Whole Blood 245 mg/dL (75-99)
[2019-10-10] MEDS: MONTELUKAST 10 MG TAB PO SCH (21:45)
[2019-10-10] MEDS: MELATONIN 5 MG TABLET PO SCH (21:46)
[2019-10-10] MEDS: traZODone HCL 100 MG TAB PO SCH (21:46)
[2019-10-10] MEDS: PRAVASTATIN SODIUM 40 MG TAB PO SCH (21:51)
--- NOTE | 2019-10-10 22:02 | P.PN ---
Progress Note - Text Progress Note Date: 10/10/19 Chief Complaint: Abdominal pain History of presenting complaint: This is a 54-year-old patient who follows with Dr. thomas from [place]. Chronic stable medical conditions include diabetes mellitus type II on insulin pump.,GERD, hypertension, obstructive sleep apnea uses CPAP, chronic pancreatitis, bipolar disorder and chronic low back pain. Recently in the hospital with syncope and a fall. Found to have a hairline fracture to the right tibia just below the tibial tuberosity. Patient now presents with 3 days of left lower quadrant pain. Has been having bowel movements. No nausea vomiting. Has some low-grade fever. Patient also follow up with Dr. Shanks from orthopedic spine. Her having neck pain. He's also been having left arm weakness. And some numbness. Due for an MRI. Patient has continued to smoke Admitted with recurrent acute pancreatitis, foraminal stenosis at C6-C7 and compression fractures C7 with left arm weakness or necropathy. Made nothing by mouth. IV fluids. Patient is started on IV steroids by orthopedics. Accu- Cheks ran tired to 400s particularly insulin drip. Today-abdominal pain improved. tolerating diet. Left arm weakness still present.-Unwitting surgery tomorrow morning Review of systems: Was done for constitutional, cardiovascular, GI, pulmonary. relevant finding as above Active Medications Acetaminophen (Tylenol Tab) 650 mg PO Q6HR PRN PRN Reason: Mild Pain or Fever > 100.5 Amlodipine Besylate (Norvasc) 5 mg PO DAILY [facility] Last Admin: 10/10/19 08:03 Dose: 5 mg Documented by: Aspirin (Aspirin) 81 mg PO DAILY [facility] Last Admin: 10/10/19 08:02 Dose: 81 mg Documented by: Diclofenac Sodium (Voltaren Gel) 2 gm TOPICAL QID [facility] Last Admin: 10/10/19 21:51 Dose: Not Given Documented by: Dicyclomine HCl (Bentyl) 20 mg PO Q6H PRN PRN Reason: CRAMPS Duloxetine HCl (Cymbalta) 30 mg PO BID [facility] Last Admin: 10/10/19 21:45 Dose: 30 mg Documented by: Famotidine (Pepcid) 40 mg PO DAILY [facility] Last Admin: 10/10/19 08:02 Dose: 40 mg Documented by: Fenofibrate (Lofibra) 160 mg PO DAILY [facility] Last Admin: 10/10/19 08:03 Dose: 160 mg Documented by: Gabapentin (Neurontin) 300 mg PO BID [facility] Last Admin: 10/10/19 21:45 Dose: 300 mg Documented by: Sodium Chloride (Saline 0.9%) 1,000 mls @ 75 mls/hr IV .[id number] [facility] Last Admin: 10/10/19 21:44 Dose: 75 mls/hr Documented by: Ceftriaxone Sodium 1 gm/ (Sodium Chloride) 50 mls @ 100 mls/hr IVPB Q24HR [facility] Last Admin: 10/10/19 08:04 Dose: 100 mls/hr Documented by: Insulin Aspart (Novolog) 14 unit 0.13 unit/kg (14 unit) SQ AC-TID [facility] Last Admin: 10/10/19 17:44 Dose: 14 unit Documented by: Insulin Aspart (Novolog) 0 unit SQ ACHS [facility]; Protocol Last Admin: 10/10/19 21:41 Dose: 8 unit Documented by: Ketorolac Tromethamine (Toradol) 30 mg IVP Q6H PRN PRN Reason: Moderate Pain Stop: 10/11/19 23:01 Last Admin: 10/10/19 17:45 Dose: 30 mg Documented by: Lamotrigine (Lamictal) 200 mg PO BID [facility] Last Admin: 10/10/19 21:45 Dose: 200 mg Documented by: Melatonin (Melatonin) [address] [facility] Last Admin: 10/10/19 21:46 Dose: 10 mg Documented by: Meloxicam (Mobic) 7.5 mg PO BID PRN PRN Reason: Pain Last Admin: 10/10/19 21:46 Dose: 7.5 mg Documented by: Metoprolol Tartrate (Lopressor) 25 mg PO BID [facility] Last Admin: 10/10/19 21:46 Dose: 25 mg Documented by: Montelukast Sodium (Singulair) 10 [address] [facility] Last Admin: 10/10/19 21:45 Dose: 10 mg Documented by: Morphine Sulfate (Morphine Sulfate (Inj)) 4 mg IV Q4HR PRN PRN Reason: Severe Pain Last Admin: 10/10/19 21:39 Dose: 4 mg Documented by: Multivitamins (Theragran) 1 each PO DAILY [facility] Last Admin: 10/10/19 08:03 Dose: 1 each Documented by: Naloxone HCl (Narcan) 0.2 mg IV Q2M PRN PRN Reason: Opioid Reversal Ondansetron HCl (Zofran) 4 mg IVP Q8HR PRN PRN Reason: Nausea And Vomiting Pravastatin Sodium (Pravachol) 40 mg PO [facility] Last Admin: 10/10/19 21:51 Dose: 40 mg Documented by: Prednisone () 60 mg PO DAILY [facility] Last Admin: 10/10/19 08:02 Dose: 60 mg Documented by: Quetiapine Fumarate (Seroquel) 100 mg PO BID@0800,1200 [facility] Last Admin: 10/10/19 12:40 Dose: 100 mg Documented by: Quetiapine Fumarate (Seroquel) 300 mg PO [facility] Last Admin: 10/10/19 21:51 Dose: 300 mg Documented by: Trazodone HCl (Desyrel) [address] [facility] Last Admin: 10/10/19 21:46 Dose: 100 mg Documented by: Physical examination: VITAL SIGNS: 98.1, 94, 16, 130/74, 97% on room air GENERAL: Sitting up in a chair, cheerful l EYES: Pupils equal. Conjunctiva normal. HEENT: External appearance of nose and ears normal, oral cavity grossly normal. NECK: JVD not raised; masses not palpable. HEART: First and second heart sounds are normal; no edema. LUNGS: Respiratory rate increased, diminished breath sounds mild wheezing ABDOMEN: Soft, left-sided tenderness,, no guarding rigidity, liver spleen not palpable, no masses palpable. PSYCH: Alert and oriented x3; mood and affect normal. NEUROLOGICAL: decreased strength of the left arm 4 / 5 INVESTIGATIONS, reviewed in the clinical context: Potassium 5.5 creatinine 1.03 Previous testing White count 8.1 hemoglobin 14.3 platelets 387 potassium 4.4 creatinine 0.84, lipase 478 Computed tomography scan of the abdomen and pelvis with contrast-findings noted. Including pseudocyst unchanged from previous exam. Previous testing: On October 2018 patient's bun was 15 creatinine was 0.97 Assessment: -Patient had 3 days of left-sided abdominal pain. No guarding rigidity. No nausea vomiting. Slight elevation of lipase. This could be acute flareup of chronic pancreatitis. Abdominal CT scan relatively benign-appearing. Patient is made nothing by mouth in the ER.-Improved -Compression deformity T7 with foraminal stenosis at C6-C7 causing left arm weakness and radicular.-not improving-for surgery tomorrow -Diabetes mellitus type 2 chronically insulin pump, uncontrolled with hyperglycemia secondary to steroids -GERD -Essential hypertension -Obstructive sleep apnea uses a BiPAP machine -Bipolar disorder -Chronic low back pain -Obesity BMI 31.7 -Chronic nicotine dependence patient cigarette smoker -COPD in a current smoker Plan: Give Kayexalate 30 g. Repeat labs in the morning. Decrease prednisone to 40 mg. Discussed with the patient.
[2019-10-10] MEDS ORDERED: SODIUM POLYSTYRENE SULFONATE 15 GM/60 ML BOTTLE PO STA (22:03)
[2019-10-11] MEDS: KETOROLAC 30 MG/ML 1 ML VIAL IVP PRN ×3 (01:05→20:51)
[2019-10-11] MEDS: MORPHINE SULFATE 4 MG/ML SYRINGE IV PRN ×3 (01:48→11:49)
[2019-10-11 06:35] LABS: HCT 45.7 % (39.0-53.0); HGB 14.1 gm/dL (13.0-17.5); MCH 28.8 pg (25.0-35.0); MCHC 30.8 g/dL (31.0-37.0); MCV 93.3 fL (80.0-100.0); Mean Platelet Volume 7.4; Platelet Count 249 k/uL (150-450); RBC 4.89 m/uL (4.30-5.90); RDW 12.9 % (11.5-15.5); WBC 15.1 k/uL (3.8-10.6)
[2019-10-11 06:42] LABS: African American GFR (CKD) >90 (>60 ml/min/1.73 sqM); Anion Gap 4 mmol/L; Blood Urea Nitrogen 28 mg/dL (9-20); Calcium 9.2 mg/dL (8.4-10.2); Carbon Dioxide 31 mmol/L (22-30); Chloride 99 mmol/L (98-107); Glucose 232 mg/dL (74-99); Non-African American GFR(CKD) 82 (>60 ml/min/1.73 sqM); Sodium 134 mmol/L (137-145)
[2019-10-11 06:59] LABS: Glucose,Whole Blood 218 mg/dL (75-99)
[2019-10-11] MEDS ORDERED: fentaNYL (PF) 50 MCG/ML 2 ML AMP IVP PRN (07:31)
[2019-10-11] MEDS: QUEtiapine 100 MG TAB PO SCH ×3 (07:42→20:56)
[2019-10-11] MEDS: amLODIPine 5 MG TAB PO SCH (07:42)
[2019-10-11] MEDS: ASPIRIN 81 MG PO SCH (07:42)
[2019-10-11] MEDS: INSULIN ASPART (NovoLOG) 100 UNIT/ML VIAL SQ SCH ×7 (07:42→20:57)
[2019-10-11] MEDS: GABAPENTIN 300 MG CAP PO SCH ×2 (07:43→20:55)
[2019-10-11] MEDS: MULTIVITAMINS, THERA 1 EACH TAB PO SCH (07:43)
[2019-10-11] MEDS: DULoxetine HCL 30 MG CAPSULE.DR PO SCH ×2 (07:43→20:57)
[2019-10-11] MEDS: FENOFIBRATE 160 MG TAB PO SCH (07:43)
[2019-10-11] MEDS: METOPROLOL TARTRATE 25 MG TAB PO SCH ×2 (07:43→20:55)
[2019-10-11] MEDS: lamoTRIgine 100 MG TAB PO SCH ×2 (07:43→20:55)
[2019-10-11] MEDS: FAMOTIDINE 20 MG TAB PO SCH (07:43)
[2019-10-11] MEDS ORDERED: PROPOFOL 10 MG/ML 20 ML VIAL IV ONE (08:05)
[2019-10-11] MEDS ORDERED: fentaNYL (PF) 50 MCG/ML 2 ML AMP ONE (08:05)
[2019-10-11] MEDS ORDERED: PHENYLEPHRINE-0.9% NACL SYG 1 MG/10 ML SYRINGE ONE (08:05)
[2019-10-11] MEDS ORDERED: KETAMINE 10 MG/ML 20 ML VIAL ONE (08:05)
[2019-10-11] MEDS ORDERED: SUCCINYLCHOLINE CHLORIDE 100 MG/5 ML SYR IV ONE (08:05)
[2019-10-11] MEDS ORDERED: MIDAZOLAM 2 MG/2 ML VIAL ONE (08:05)
[2019-10-11] MEDS ORDERED: IV FLUID CONTINUATION 1,000 ML IV ONE (08:09)
[2019-10-11] MEDS ORDERED: LACTATED RINGERS 1,000 ML IV ONE (08:26)
[2019-10-11] MEDS ORDERED: BUPIVACAINE (PF) 0.5% 30 ML VIAL SQ ONE ×2 (08:42)
[2019-10-11] MEDS ORDERED: LIDOCAINE 2%-EPI 1:100,000 20 ML VIAL SQ ONE ×2 (08:42)
[2019-10-11] MEDS ORDERED: predniSONE 20 MG TAB PO SCH (09:00)
[2019-10-11] MEDS: SODIUM CHLORIDE 0.9% 1,000 ML IV SCH ×5 (09:56→23:54)
[2019-10-11] MEDS: DICLOFENAC SODIUM GEL 100 GM TUBE TOPICAL SCH ×4 (09:56→21:08)
[2019-10-11] MEDS ORDERED: HYDROmorphone 0.5 MG/0.5 ML SYRINGE IVP PRN (10:32)
[2019-10-11] MEDS ORDERED: MAGNESIUM HYDROXIDE 2,400 MG/10 ML CUP PO PRN (10:32)
[2019-10-11] MEDS ORDERED: BENZOCAINE/MENTHOL LOZENG 1 EACH LOZENGE MUCOUS MEM PRN (10:32)
[2019-10-11] MEDS ORDERED: ONDANSETRON 4 MG/2 ML VIAL IVP PRN (10:33)
[2019-10-11] MEDS ORDERED: ALBUTEROL NEBULIZED 2.5 MG/3 ML INHALATION PRN (10:35)
[2019-10-11] MEDS: LACTATED RINGERS 1,000 ML IV SCH ×2 (10:38→23:54)
[2019-10-11] MEDS: HYDROmorphone 0.5 MG/0.5 ML SYRINGE IVP PRN ×2 (10:40→10:45)
--- NOTE | 2019-10-11 10:51 | P.OP ---
Date of Procedure: 10/11/19 Preoperative Diagnosis: C7 fracture, cervical stenosis C6 7 and behind C7, myelopathy, left upper extremity weakness, looked upper extremity radiculopathy, disc herniation C67 Postoperative Diagnosis: Same plus evidence of burst fracture at C6 7, subacute Anesthesia: GETA Pathology: other (Portions of C7 vertebral bodies to pathology) Condition: stable Disposition: PACU Description of Procedure: BRIEF OPERATIVE NOTE Preoperative Diagnosis:C7 fracture, cervical stenosis C6 7 and behind C7, myelopathy, left upper extremity weakness, looked upper extremity radiculopathy, disc herniation C67 Postoperative Diagnosis:C7 fracture, cervical stenosis C6 7 and behind C7, myelopathy, left upper extremity weakness, looked upper extremity radiculopathy, disc herniation C67 plus evidence of subacute burst fracture at C7 Procedure: Open reduction internal fixation of C7 burst fracture Anterior cervical decompression with discectomy C6 7 C7-T1 with fusion of C6 to T1 Corpectomy of C7 with removal of bone fragments from C7 vertebral body Placement of interbody graft from C6 to T1 Local autogenous bone grafting Application of anterior cervical plate C6 to T1 Surgeon: Dr. Barger Operations Supervisor Chemical Cleaning: Surgical scrub store administrative assistant Anesthesia: General anesthesia Estimated blood loss: Approximately 100 mL Complications: None apparent Components implanted: [place] interbody cage filled with local autogenous bone graft and bio4 bone graft to supplement the autogenous bone graft and Dimmit anterior cervical plate from K2M with screws Disposition: To recovery room in good stable condition. OPERATIVE INDICATIONS The patient has been having severe issues that his left upper extremity with weakness in his left upper extremity or the past few weeks. He says that he sustained a couple of falls a few weeks ago and hit his shoulder and his head. He was being treated for those things and noticed that he was having problems in his left upper extremity with weakness. He denied specific neck pain. He says that his arm was giving him deep aching at his upper arm and weakness into his hand and fingers. He is having weakness along his triceps and with any sort of pushing and his apple sorter. He was being worked up for this through our office with close care but then was admitted this past week for acute pancreatitis. He has a history of multiple episodes of pancreatitis in the past. He has a history of alcohol. He has been treated over the past few days for his acute pancreatitis and was found to be making progress and was able to be medically cleared for surgery for his cervical spine yesterday. We proceeded as soon as possible with continuing care for his cervical spine where he was found have evidence of a compression fracture at C7 with left stenosis and distortion of the spinal cord from C6-7 disc space and behind C7 vertebral body. We placed him in a hard cervical collar but he had some issues with compliance for this. We discussed various treatment options including surgery, and the patient wishes to proceed with surgery. He understood that there would be significant risk of his left upper extremity not being able to return to its normal function and continuing to have potentially permanent weakness and strength issues. I explained to this to him at length. He understood that the surgery may not alleviate his symptoms but would give him the chance of making improvement with the pressure of his nerves. We discussed the risk, patient's alternatives and benefits of surgery including but not limited to, risk of bleeding risk of infection, risk of need for further surgery, risk of decreased, loss of motion, muscle function, malunion nonunion, hardware failure, nerve damage, paralysis, heart attack, and . OPERATIVE SUMMARY After discussing all the risks, patient alternatives and benefits at length, the patient elected to proceed with surgical intervention, signed informed consent, and presented for their procedure. The patient was seen and examined in the preoperative holding area and the surgical site was marked. The patient was given antibiotics and brought to the operating room. The patient was positioned on the operating room table in a supine position being careful to pad any bony prominences and pressure points. The patient was sedated and intubated by anesthesia in standard fashion. Once the airway and C- spine were stabilized the patient's arms were padded and tucked at her side, with her shoulders gently taped. The head was placed in a donut pad with the neck in good neutral alignment and position. We were careful to maintain the patient's cervical spine and good neutral alignment and position throughout. The patient was prepped and draped in a normal standard fashion. An appropriate timeout and keystone protocol performed. We were able to proceed with the surgery. The local wound area was infiltrated with local anesthetic. An incision was made transversely approximately 2-1/2 cm over the appropriate levels over C7. Dissection was taken down subcutaneously to the level of the platysma which was split in line with its fibers. Dissection was taken with a carotid approach, with the trachea and esophagus medial and the carotid sheath laterally. We dissected down to the anterior surface of the vertebral bodies. Intraoperative x-ray was taken which showed a marker at C5 vertebral body. With that identified I was able to easily identify the C5 6 disc space and then moved down to the C6 7 disc space and also expose the C7-T1 disc space. There was some evidence of hematoma over the C67 disc and C7 triple body. With the appropriate level positively confirmed, we were able to proceed with discectomy at the appropriate levels starting at C6 7. All of the operative levels were exposed appropriately. The patient had all their twitches back, and there was no evidence of recurrent laryngeal issue. The wound was copiously irrigated and suctioned dry as had been done periodically throughout the case. At the appropriate level/levels, starting at C6 7 I established an annulotomy with an 11 blade scalpel. A discectomy was performed with a combination of pituitary rongeurs, curettes, a high-speed bur, and Kerrison rongeurs. Upon removing the disc from C6 7 it was obvious that there was still fracture at the C7 vertebral body. There were notable chunks of bone and comminuted bone that were removed and fractured from the C7 vertebral body still attached to disc at C6 7. Upon removing these pieces of disc portions of bone were being removed as well from the fracture. The fracture extended primarily toward the left side of the vertebral body out the left lateral wall and through the posterior wall as well to establish burst component. Portions of the disc and bone were passed for pathology. Other portions of the bone appeared to be normal fractured bone fragments and these were saved for local autogenous bone grafting. It was evident that the fracture extended down to the caudal endplate of C7 and that there would not be good stabilization using any portion of the C7 vertebrae area I decided then to do a full corpectomy of C7 and extend the fusion down to T1 for appropriate open reduction and internal fixation of the area from C6 to T1. The posterior longitudinal ligament was taken down as were any posterior osteophytes. This gave good central and bilateral foraminal decompression. Any further bony fragments posteriorly were removed. I was able get excellent central decompression. There is no evidence of any dural tear or leak. The endplates were prepared with a high-speed bur. With the endplates in good parallel position, I was able to size for the appropriate size interbody graft. I used an appropriate caliper to measure for the appropriate graft length. A [place] cage was chosen and filled with local autogenous bone graft and Bio4 bone graft supplement The wound was irrigated and suctioned dry. We had the anesthesiologist do gentle in-line traction of the cervical spine and with that intact the graft was prepared and placed in position and malleted into position from C6 to T1. It had good alignment and position with the anterior surface flush with the anterior surface of the vertebral bodies from C6 to T1. With the grafts intact, I was able to measure and contour and appropriate sized plate. The plate was positioned at the midline over the appropriate levels from C6 to T1. Screw holes were established with a hand drill and drill guide. Screws were placed in good alignment and position with excellent bony purchase. They were seated under the locking device. The construct was checked and found to be stable. Intraoperative x-ray was taken which showed good alignment and position of the implants at the appropriate levels. There was no evidence of any dural tear or leak. Good hemostasis was maintained. The wound was copiously irrigated and suctioned dry as had been done periodically throughout the case. The platysma was closed with absorbable suture. The subcutaneous tissue was closed. The subcuticular tissue was closed with absorbable suture. The wound was cleaned and dried and dressed appropriately. A soft cervical collar was placed appropriately. The patient was woken up by anesthesia, extubated, transferred back gently to their hospital bed and brought to the recovery room in good stable condition. The patient will be admitted to the hospital for appropriate postoperative care, medical management and monitoring. We will continue to follow them closely about the postoperative course.
[2019-10-11 11:03] LABS: Glucose,Whole Blood 226 mg/dL (75-99)
[2019-10-11] MEDS ORDERED: INSULIN ASPART (NovoLOG) 100 UNIT/ML VIAL SQ ONE (11:15)
--- NOTE | 2019-10-11 14:55 | XR ---
EXAMINATION TYPE: XR cervical spine 1V DATE OF EXAM: 10/11/2019 TECHNIQUE: Lateral crosstable view of the cervical spine obtained. HISTORY: NEEDLE PLACEMENT COMPARISON: None FINDINGS: The cervical spine is partially visualized from C1 through C5. Needle placement is seen at the level of the C5 vertebral body. Endotracheal tube present. IMPRESSION: Needle placement at the level of the C5 vertebral body.
--- NOTE | 2019-10-11 14:58 | XR ---
EXAMINATION TYPE: XR cervical spine 1V DATE OF EXAM: 10/11/2019 TECHNIQUE: Lateral crosstable view of the cervical spine obtained HISTORY: Hardware placement COMPARISON: Cervical radiograph 10/11/2019 at 8:56 AM FINDINGS: The cervical spine is incompletely visualized from the level of C1-C5. There may be hardwa re at the level of C6-C7, which is obscured due to overlying shoulder. Endotracheal tube remains. IMPRESSION: Possible inferior cervical spine surgical hardware, however obscured due to overlapping shoulders.
[2019-10-11] MEDS: HYDROmorphone 1 MG/ML 1 ML SYRINGE IVP PRN ×2 (16:31→20:53)
[2019-10-11 17:11] LABS: Glucose,Whole Blood 111 mg/dL (75-99)
--- NOTE | 2019-10-11 17:20 | P.PN ---
Progress Note - Text Progress Note Date: 10/11/19 Chief Complaint: Abdominal pain History of presenting complaint: This is a 54-year-old patient who follows with Dr. thomas from [facility]. Chronic stable medical conditions include diabetes mellitus type II on insulin pump.,GERD, hypertension, obstructive sleep apnea uses CPAP, chronic pancreatitis, bipolar disorder and chronic low back pain. Recently in the hospital with syncope and a fall. Found to have a hairline fracture to the right tibia just below the tibial tuberosity. Patient now presents with 3 days of left lower quadrant pain. Has been having bowel movements. No nausea vomiting. Has some low-grade fever. Patient also follow up with Dr. Shanks from orthopedic spine. Her having neck pain. He's also been having left arm weakness. And some numbness. Due for an MRI. Patient has continued to smoke Admitted with recurrent acute pancreatitis, foraminal stenosis at C6-C7 and compression fractures C7 with left arm weakness or necropathy. Made nothing by mouth. IV fluids. Patient is started on IV steroids by orthopedics. Accu- Cheks ran tired to 400s particularly insulin drip. Secondary to steroids.. Today-underwent cervical spine surgery by Dr. Shanks today. Postprocedure sitting up in a chair. Left arm feeling better. Pain control. Review of systems: Was done for constitutional, cardiovascular, GI, pulmonary. Muscular skeletal relevant finding as above Active Medications Acetaminophen (Tylenol Tab) 650 mg PO Q6HR PRN PRN Reason: Mild Pain or Fever > 100.5 Hydrocodone Bitart/Acetaminophen (Willard 5-325) 1 each PO Q4HR PRN PRN Reason: Moderate Pain Albuterol Sulfate (Ventolin Nebulized) 2.5 mg INHALATION RT-Q6H PRN PRN Reason: Shortness Of Breath Amlodipine Besylate (Norvasc) 5 mg PO DAILY [facility] Last Admin: 10/11/19 07:42 Dose: Not Given Documented by: Aspirin (Aspirin) 81 mg PO DAILY [facility] Last Admin: 10/11/19 07:42 Dose: Not Given Documented by: Benzocaine/Menthol (Cepacol Lozenge) 1 each MUCOUS MEM Q4HR PRN PRN Reason: Sore Throat Diclofenac Sodium (Voltaren Gel) 2 gm TOPICAL QID [facility] Last Admin: 10/11/19 12:00 Dose: Not Given Documented by: Dicyclomine HCl (Bentyl) 20 mg PO Q6H PRN PRN Reason: CRAMPS Doxycycline Monohydrate (Vibramycin) 100 mg PO BID [facility] Duloxetine HCl (Cymbalta) 30 mg PO BID [facility] Last Admin: 10/11/19 07:43 Dose: Not Given Documented by: Ergocalciferol (Vitamin D2) 50,000 unit PO [facility] Famotidine (Pepcid) 40 mg PO DAILY [facility] Last Admin: 10/11/19 07:43 Dose: Not Given Documented by: Fenofibrate (Lofibra) 160 mg PO DAILY [facility] Last Admin: 10/11/19 07:43 Dose: Not Given Documented by: Fentanyl Citrate (Sublimaze) 50 mcg IVP Q3M PRN PRN Reason: Pain Control Stop: 10/11/19 23:00 Gabapentin (Neurontin) 300 mg PO BID [facility] Last Admin: 10/11/19 07:43 Dose: Not Given Documented by: Hydromorphone HCl (Dilaudid) 0.5 mg IVP Q5M PRN PRN Reason: Pain Control Stop: 10/12/19 07:32 Last Admin: 10/11/19 10:45 Dose: 0.5 mg Documented by: Hydromorphone HCl (Dilaudid) 0.5 mg IVP Q4HR PRN PRN Reason: Pain Hydromorphone HCl (Dilaudid) 1 mg IVP Q4HR PRN PRN Reason: Pain Last Admin: 10/11/19 16:31 Dose: 1 mg Documented by: Sodium Chloride (Saline 0.9%) 1,000 mls @ 75 mls/hr IV .[id number] [facility] Last Admin: 10/11/19 16:31 Dose: 75 mls/hr Documented by: Ceftriaxone Sodium 1 gm/ (Sodium Chloride) 50 mls @ 100 mls/hr IVPB Q24HR [facility] Last Admin: 10/11/19 11:49 Dose: 100 mls/hr Documented by: Lactated Ringer's (Lactated Ringers) 1,000 mls @ 20 mls/hr IV .Q24H [facility] Last Admin: 10/11/19 10:38 Dose: 50 mls Documented by: Cefazolin Sodium 2 gm/ Sodium (Chloride) 50 mls @ 100 mls/hr IVPB Q8HR [facility] Stop: 10/12/19 00:29 Last Admin: 10/11/19 16:31 Dose: 100 mls/hr Documented by: Sodium Chloride (Saline 0.9%) 1,000 mls @ 75 mls/hr IV .[id number] [facility] Insulin Aspart (Novolog) 14 unit 0.13 unit/kg (14 unit) SQ AC-TID [facility] Last Admin: 10/11/19 12:44 Dose: 14 unit Documented by: Insulin Aspart (Novolog) 0 unit SQ ACHS [facility]; Protocol Last Admin: 10/11/19 12:44 Dose: 2 unit Documented by: Ketorolac Tromethamine (Toradol) 30 mg IVP Q6H PRN PRN Reason: Moderate Pain Stop: 10/11/19 23:01 Last Admin: 10/11/19 07:37 Dose: 30 mg Documented by: Lamotrigine (Lamictal) 200 mg PO BID [facility] Last Admin: 10/11/19 07:43 Dose: Not Given Documented by: Magnesium Hydroxide (Milk Of Magnesia) 2,400 mg PO DAILY PRN PRN Reason: Constipation Melatonin (Melatonin) 10 mg PO [facility] Last Admin: 10/10/19 21:46 Dose: 10 mg Documented by: Meloxicam (Mobic) 7.5 mg PO BID PRN PRN Reason: Pain Last Admin: 10/10/19 21:46 Dose: 7.5 mg Documented by: Metoprolol Tartrate (Lopressor) 25 mg PO BID [facility] Last Admin: 10/11/19 07:43 Dose: Not Given Documented by: Montelukast Sodium (Singulair) 10 mg PO [facility] Last Admin: 10/10/19 21:45 Dose: 10 mg Documented by: Morphine Sulfate (Morphine Sulfate (Inj)) 4 mg IV Q4HR PRN PRN Reason: Severe Pain Last Admin: 10/11/19 11:49 Dose: 4 mg Documented by: Multivitamins (Theragran) 1 each PO DAILY [facility] Last Admin: 10/11/19 07:43 Dose: Not Given Documented by: Naloxone HCl (Narcan) 0.2 mg IV Q2M PRN PRN Reason: Opioid Reversal Ondansetron HCl (Zofran) 4 mg IVP Q8HR PRN PRN Reason: Nausea And Vomiting Pravastatin Sodium (Pravachol) 40 mg PO [facility] Last Admin: 10/10/19 21:51 Dose: 40 mg Documented by: Prednisone () 40 mg PO DAILY [facility] Last Admin: 10/11/19 07:44 Dose: Not Given Documented by: Quetiapine Fumarate (Seroquel) 100 mg PO BID@0800,1200 [facility] Last Admin: 10/11/19 11:55 Dose: 100 mg Documented by: Quetiapine Fumarate (Seroquel) 300 mg PO [facility] Last Admin: 10/10/19 21:51 Dose: 300 mg Documented by: Senna/Docusate Sodium (Senokot-S) 1 each PO DAILY [facility] Trazodone HCl (Desyrel) 100 mg PO [facility] Last Admin: 10/10/19 21:46 Dose: 100 mg Documented by: Physical examination: VITAL SIGNS: 98, 92, 20, 117/78, 92% room air GENERAL: Sitting up in a chair, awake EYES: Pupils equal. Conjunctiva normal. HEENT: External appearance of nose and ears normal, oral cavity grossly normal. NECK: JVD unable to assess; masses not palpable. Neck: Collar With dressing. HEART: First and second heart sounds are normal; no edema. LUNGS: Respiratory rate increased, diminished breath sounds mild wheezing ABDOMEN: Soft, left-sided tenderness,, no guarding rigidity, liver spleen not palpable, no masses palpable. PSYCH: Alert and oriented x3; mood and affect normal. NEUROLOGICAL: Able to lift his left arm. Some numbness. INVESTIGATIONS, reviewed in the clinical context: White count 15.1 hemoglobin 14.1 potassium 5 creatinine 1.04 Previous testing White count 8.1 hemoglobin 14.3 platelets 387 potassium 4.4 creatinine 0.84, lipase 478 Computed tomography scan of the abdomen and pelvis with contrast-findings noted. Including pseudocyst unchanged from previous exam. Previous testing: On October 2018 patient's bun was 15 creatinine was 0.97 Assessment: -acute flareup of chronic pancreatitis. Abdominal CT scan relatively benign- appearing. .-Improved -Surgery today on October 10-C6 C7 T1 removal of bone fragments from fracture of C7, decompression fusion and plating-4 C7 fracture, cervical spine stenosis ECX 7, myelopathy disc herniation -Diabetes mellitus type 2 chronically insulin pump, uncontrolled with hyperglycemia secondary to steroids -GERD -Essential hypertension -Obstructive sleep apnea uses a BiPAP machine -Bipolar disorder -Chronic low back pain -Obesity BMI 31.7 -Chronic nicotine dependence patient cigarette smoker -COPD in a current smoker Plan: Decrease prednisone to 30 mg tomorrow. Other medications to continue. Did discuss with the patient. Follow with Dr. Shanks
[2019-10-11 20:24] LABS: Glucose,Whole Blood 286 mg/dL (75-99)
[2019-10-11] MEDS: MONTELUKAST 10 MG TAB PO SCH (20:55)
[2019-10-11] MEDS: PRAVASTATIN SODIUM 40 MG TAB PO SCH (20:55)
[2019-10-11] MEDS: DOXYCYCLINE 100 MG CAP PO SCH (20:55)
[2019-10-11] MEDS: MELATONIN 5 MG TABLET PO SCH (20:56)
[2019-10-11] MEDS: MELOXICAM 7.5 MG TAB PO PRN (20:59)
[2019-10-11] MEDS: traZODone HCL 100 MG TAB PO SCH (21:07)
[2019-10-12] MEDS: HYDROmorphone 1 MG/ML 1 ML SYRINGE IVP PRN ×5 (02:16→22:07)
[2019-10-12] MEDS: HYDROcodone/APAP 5-325MG 1 EACH TAB PO PRN ×4 (05:24→22:08)
[2019-10-12 07:21] LABS: Glucose,Whole Blood 388 mg/dL (75-99)
[2019-10-12 08:07] LABS: African American GFR (CKD) >90 (>60 ml/min/1.73 sqM); Anion Gap 4 mmol/L; Blood Urea Nitrogen 20 mg/dL (9-20); Carbon Dioxide 32 mmol/L (22-30); Chloride 99 mmol/L (98-107); Glucose 376 mg/dL (74-99); Non-African American GFR(CKD) >90 (>60 ml/min/1.73 sqM); Potassium 4.5 mmol/L (3.5-5.1); Sodium 135 mmol/L (137-145)
[2019-10-12] MEDS: DICLOFENAC SODIUM GEL 100 GM TUBE TOPICAL SCH ×4 (08:27→20:35)
[2019-10-12] MEDS: INSULIN ASPART (NovoLOG) 100 UNIT/ML VIAL SQ SCH ×7 (08:28→20:29)
[2019-10-12] MEDS: SENNOSIDES-DOCUSATE SODIUM 1 EACH TAB PO SCH (08:30)
[2019-10-12] MEDS: METOPROLOL TARTRATE 25 MG TAB PO SCH ×2 (08:30→20:30)
[2019-10-12] MEDS: FAMOTIDINE 20 MG TAB PO SCH (08:30)
[2019-10-12] MEDS: ASPIRIN 81 MG PO SCH (08:30)
[2019-10-12] MEDS: FENOFIBRATE 160 MG TAB PO SCH (08:31)
[2019-10-12] MEDS: amLODIPine 5 MG TAB PO SCH (08:31)
[2019-10-12] MEDS: MULTIVITAMINS, THERA 1 EACH TAB PO SCH (08:31)
[2019-10-12] MEDS: GABAPENTIN 300 MG CAP PO SCH ×2 (08:31→20:30)
[2019-10-12] MEDS: DOXYCYCLINE 100 MG CAP PO SCH ×2 (08:31→20:29)
[2019-10-12] MEDS: DULoxetine HCL 30 MG CAPSULE.DR PO SCH ×2 (08:31→20:30)
[2019-10-12] MEDS: lamoTRIgine 100 MG TAB PO SCH ×2 (08:31→20:33)
[2019-10-12] MEDS: QUEtiapine 100 MG TAB PO SCH ×3 (08:32→20:29)
[2019-10-12] MEDS: MELOXICAM 7.5 MG TAB PO PRN ×2 (08:35→20:32)
--- NOTE | 2019-10-12 08:38 | P.PN ---
Progress Note - Text Progress Note Date: 10/12/19 Orthopedic Spine: History of present illness: Patient is a pleasant 54-year-old male who is seen at the bedside following C6-7 and C7-T1 anterior cervical decompression and fusion with corpectomy of C7 performed yesterday. Patient states they are doing better postsurgically. He has less pain in his left upper extremity. He feels he has had better range of motion and strength of the left upper extremity but does admit to continued weakness and pain. He has continue to keep his hard cervical collar intact but is not comfortable with it. He does continue to receive IV Dilaudid and [place] as described for control of symptoms. Currently does not complain of nausea, vomiting, fever, or chills. Patient states pain has been adequately controlled. Patient is eating and voiding freely without difficulty. Patient continues to be seen by medicine for his other medical diagnoses including acute pancreatitis. Patient is unsure if he feels ready for discharge home today. Physical Exam Cervical Fusion: Status post surgical day number 1 Patient is awake, alert, and oriented 3 Vital signs stable Good chest excursion with deep inspiration and expiration; current breathing machine intact Dressing over the surgical site is clean, dry, and intact; no erythema, purulence, or signs of infection Patient is wearing hard cervical collar Right upper extremity strength is 5/5 throughout range of motion Continued weakness with the left upper extremity but improved range of motion postoperatively Patient is holding his left arm in a flexed position guarding it due to pain Evidence of left hand atrophy Assessment: Status post C6-7 and C7-T1 anterior cervical decompression and fusion with corpectomy of C7 C7 burst cervical fracture Cervical myelopathy Left upper extremity weakness and radiculopathy Cervical pain Acute pancreatitis Plan: 1. Ambulate as tolerated; work with Physical Therapy to increase mobilization 2. Continue pain control with medications as prescribed including Dilaudid and [place]; we will need to continue weaning the patient off of Dilaudid in anticipation for discharge home. Prescription has been previously written for [place] 5 mg/325 mg 1 tab every 12 hours as needed for pain, dispensed #14. This was prescribed in the outpatient setting. Patient was unable to vegetable picker this prescription as he did come to the hospital due to his symptoms. We did discuss at the time of discharge he may present to his pharmacy to vegetable picker the preprocedure prescribed narcotic medication 3. Patient should continue to keep hard cervical collar intact at all times. We discussed he will continue wearing this brace over the next 10-12 weeks postoperatively. We did discuss he should shower with this brace intact. Patient is unsure if she'll be able to do so. He does admit to difficulty with wearing the hard cervical collar for states he will do his best to wear as instructed. 4. Patient may shower with Optifoam dressing; patient may remove Optifoam in 4 days and shower without a dressing at that time 5. Medical management can continue to manage patient for patient's other medical diagnoses including acute pancreatitis 6. We will continue to follow the patient closely; from an orthopedic spine standpoint, patient will be cleared for discharge home today if cleared by medicine; Patient can follow-up with Rg Crisostomo PA-C or Dr. Jose Manuel Barger at [facility] in 1 week following discharge
[2019-10-12] MEDS ORDERED: predniSONE 10 MG TAB PO SCH (09:00)
[2019-10-12] MEDS: MORPHINE SULFATE 4 MG/ML SYRINGE IV PRN ×2 (11:43→20:25)
[2019-10-12 12:29] LABS: Glucose,Whole Blood 194 mg/dL (75-99)
[2019-10-12] MEDS: SODIUM CHLORIDE 0.9% 1,000 ML IV SCH (13:29)
[2019-10-12 17:29] LABS: Glucose,Whole Blood 342 mg/dL (75-99)
[2019-10-12] MEDS: NICOTINE 21MG/24HR PATCH TRANSDERM SCH (17:49)
[2019-10-12 20:13] LABS: Glucose,Whole Blood 383 mg/dL (75-99)
[2019-10-12] MEDS: PRAVASTATIN SODIUM 40 MG TAB PO SCH (20:29)
[2019-10-12] MEDS: MELATONIN 5 MG TABLET PO SCH (20:30)
[2019-10-12] MEDS: traZODone HCL 100 MG TAB PO SCH (20:30)
[2019-10-12] MEDS: MONTELUKAST 10 MG TAB PO SCH (20:30)
[2019-10-12 20:52] VITALS: RESP 16
--- NOTE | 2019-10-13 02:04 | P.PN ---
Subjective Progress Note Date: 10/12/19 Principal diagnosis: acute flareup of chronic pancreatitis. This is a 54-year-old patient who follows with Dr. thomas from [place]. Chronic stable medical conditions include diabetes mellitus type II on insulin pump.,GERD, hypertension, obstructive sleep apnea uses CPAP, chronic pancreatitis, bipolar disorder and chronic low back pain. Recently in the hospital with syncope and a fall. Found to have a hairline fracture to the right tibia just below the tibial tuberosity. Patient now presents with 3 days of left lower quadrant pain. Has been having bowel movements. No nausea vomiting. Has some low-grade fever. Patient also follow up with Dr. Shanks from orthopedic spine. Her having neck pain. He's also been having left arm weakness. And some numbness. Due for an MRI. Patient has continued to smoke Admitted with recurrent acute pancreatitis, foraminal stenosis at C6-C7 and compression fractures C7 with left arm weakness or necropathy. Made nothing by mouth. IV fluids. Patient is started on IV steroids by orthopedics. Accu- Cheks ran tired to 400s particularly insulin drip. Secondary to steroids.. 10/10-underwent cervical spine surgery by Dr. Shanks today. Postprocedure sitting up in a chair. Left arm feeling better. Pain control. 10/12/2019 Patient is status post C6-C7, C7 and T1 anterior cervical decompression and fusion with corpectomy of C7 performed. Postoperative day 1. Patient is complaining of shoulder pain but controlled with pain medications. Denied any complaints of chest pain or shortness of breath. No nausea vomiting or abdominal pain. No fever no chills. Patient is voiding appropriately. Cleared from orthopedic surgery standpoint. Anticipate discharge in the next 24 hours. Review of systems: Was done for constitutional, cardiovascular, GI, pulmonary. Muscular skeletal relevant finding as above Objective - Vital Signs Vital signs: Vital Signs Temp 98.8 F 10/12/19 20:10 Pulse 109 H 10/12/19 20:10 Resp 16 10/12/19 20:10 BP 149/103 10/12/19 20:10 Pulse Ox 97 10/12/19 20:10 Intake & Output 10/12/19 10/12/19 10/13/19 06:59 18:59 06:59 Intake Total 2770 480 Balance 2770 480 Intake: Intake, IV Titration 1000 Amount Sodium Chloride 0.9% 1, 900 000 ml @ 75 mls/hr IV . [id number] ASHLEY Rx#:[id number] ceFAZolin 2 gm In Sodium 100 Chloride 0.9% 50 ml @ 100 mls/hr IVPB Q8HR ASHLEY Rx# :[id number] Oral 1770 480 Other: Voiding Method Toilet # Voids 2 3 1 # Bowel Movements 3 - Exam Physical examination: VITAL SIGNS: 98, 92, 20, 117/78, 92% room air GENERAL: Sitting up in a chair, awake EYES: Pupils equal. Conjunctiva normal. HEENT: External appearance of nose and ears normal, oral cavity grossly normal. NECK: JVD unable to assess; masses not palpable. Neck: Collar With dressing. HEART: First and second heart sounds are normal; no edema. LUNGS: Respiratory rate increased, diminished breath sounds mild wheezing ABDOMEN: Soft, left-sided tenderness,, no guarding rigidity, liver spleen not palpable, no masses palpable. PSYCH: Alert and oriented x3; mood and affect normal. NEUROLOGICAL: Able to lift his left arm. Some numbness. - Labs CBC & Chem 7: 10/11/19 06:20 10/12/19 07:00 Labs: Abnormal Lab Results - Last 24 Hours (Table) 10/12/19 10/12/19 10/12/19 Range/Units 07:00 07:20 12:27 Sodium 135 L (137-145) mmol/L Carbon Dioxide 32 H (22-30) mmol/L Glucose 376 H (74-99) mg/dL POC Glucose (mg/dL) 388 H 194 H (75-99) mg/dL 10/12/19 10/12/19 Range/Units 17:28 20:10 Sodium (137-145) mmol/L Carbon Dioxide (22-30) mmol/L Glucose (74-99) mg/dL POC Glucose (mg/dL) 342 H 383 H (75-99) mg/dL Assessment and Plan Assessment: -acute flareup of chronic pancreatitis. Abdominal CT scan relatively benign- appearing. .-Improved -S/ p C6 C7 T1 removal of bone fragments from fracture of C7, decompression fusion and plating-4 C7 fracture, cervical spine stenosis ECX 7, myelopathy disc herniation on 10/11/19 -Diabetes mellitus type 2 chronically insulin pump, uncontrolled with hyperglycemia secondary to steroids -GERD -Essential hypertension -Obstructive sleep apnea uses a BiPAP machine -Bipolar disorder -Chronic low back pain -Obesity BMI 31.7 -Chronic nicotine dependence patient cigarette smoker -COPD in a current smoker Plan: Decrease prednisone to 30-20mg tomorrow. Other medications to continue. Did discuss with the patient. Follow with Dr. Shanks Time with Patient: Greater than 30
[2019-10-13] MEDS: HYDROcodone/APAP 5-325MG 1 EACH TAB PO PRN ×3 (02:44→11:07)
[2019-10-13] MEDS: HYDROmorphone 1 MG/ML 1 ML SYRINGE IVP PRN ×3 (02:45→10:27)
[2019-10-13] MEDS: MORPHINE SULFATE 4 MG/ML SYRINGE IV PRN ×3 (04:27→12:34)
[2019-10-13 05:24] VITALS: BP 147/92; PULSE 96; TEMP 98.4
[2019-10-13] MEDS: LACTATED RINGERS 1,000 ML IV SCH (06:27)
[2019-10-13 07:02] LABS: Glucose,Whole Blood 324 mg/dL (75-99)
[2019-10-13] MEDS: DICLOFENAC SODIUM GEL 100 GM TUBE TOPICAL SCH ×2 (07:52→12:20)
[2019-10-13] MEDS: INSULIN ASPART (NovoLOG) 100 UNIT/ML VIAL SQ SCH ×4 (07:55→13:09)
[2019-10-13] MEDS: NICOTINE 21MG/24HR PATCH TRANSDERM SCH (07:57)
[2019-10-13] MEDS: QUEtiapine 100 MG TAB PO SCH ×2 (07:57→12:34)
[2019-10-13] MEDS: MULTIVITAMINS, THERA 1 EACH TAB PO SCH (07:57)
[2019-10-13] MEDS: FAMOTIDINE 20 MG TAB PO SCH (07:57)
[2019-10-13] MEDS: SENNOSIDES-DOCUSATE SODIUM 1 EACH TAB PO SCH (07:57)
[2019-10-13] MEDS: lamoTRIgine 100 MG TAB PO SCH (07:57)
[2019-10-13] MEDS: DOXYCYCLINE 100 MG CAP PO SCH (07:57)
[2019-10-13] MEDS: GABAPENTIN 300 MG CAP PO SCH (07:57)
[2019-10-13] MEDS: amLODIPine 5 MG TAB PO SCH (07:57)
[2019-10-13] MEDS: FENOFIBRATE 160 MG TAB PO SCH (07:58)
[2019-10-13] MEDS: ASPIRIN 81 MG PO SCH (07:58)
[2019-10-13] MEDS: DULoxetine HCL 30 MG CAPSULE.DR PO SCH (07:58)
[2019-10-13] MEDS: METOPROLOL TARTRATE 25 MG TAB PO SCH (07:58)
[2019-10-13] MEDS ORDERED: predniSONE 10 MG TAB PO SCH (09:00)
[2019-10-13] MEDS ORDERED: INSULIN DETEMIR (LEVEMIR) 100 UNIT/ML SYR SQ STA (10:36)
[2019-10-13 11:52] LABS: Glucose,Whole Blood 202 mg/dL (75-99)
--- NOTE | 2019-10-13 12:50 | P.PN ---
Progress Note - Text Progress Note Date: 10/13/19 Orthopedic Spine: History of present illness: Patient is a pleasant 54-year-old male who is seen at the bedside following C6-7 and C7-T1 anterior cervical decompression and fusion with corpectomy of C7 performed on 10/11/2019. Patient states he continues to have some improvement postsurgically. He has less pain in his left upper extremity. He feels he has had better range of motion and strength of the left upper extremity but does admit to continued weakness and pain. He has continue to keep his hard cervical collar intact but is not comfortable with it. His pain has been fairly well controlled. He has been able to discontinue IV narcotic medications. He has been discharge from a medical standpoint and is getting ready for discharge home. Currently does not complain of nausea, vomiting, fever, or chills. Patient is eating and voiding freely without difficulty. Physical Exam Cervical Fusion: Status post surgical day number 2 Patient is awake, alert, and oriented 3 Vital signs stable Good chest excursion with deep inspiration and expiration; current breathing machine intact Dressing over the surgical site is clean, dry, and intact; no erythema, purulence, or signs of infection Patient is wearing hard cervical collar Right upper extremity strength is 5/5 throughout range of motion Continued weakness with the left upper extremity but improved range of motion postoperatively Patient is holding his left arm in a flexed position guarding it due to pain Evidence of left hand atrophy Assessment: Status post C6-7 and C7-T1 anterior cervical decompression and fusion with corpectomy of C7 C7 burst cervical fracture Cervical myelopathy Left upper extremity weakness and radiculopathy Cervical pain Acute pancreatitis Plan: 1. Ambulate as tolerated; work with Physical Therapy to increase mobilization 2. Continue pain control with medications as prescribed including Gilchrist; patient has been able to discontinue IV Dilaudid. A new prescription for Gilchrist 7.5 mg/325 mg one to have every 4 hours as needed for pain, dispensed #42 has been sent to his pharmacy. He may take this medication as prescribed as needed for control of his symptoms. 3. Patient should continue to keep hard cervical collar intact at all times. We discussed he will continue wearing this brace over the next 10-12 weeks postoperatively. We did discuss he should shower with this brace intact. Patient is unsure if she'll be able to do so. He does admit to difficulty with wearing the hard cervical collar for states he will do his best to wear as instructed. 4. Patient may shower with Optifoam dressing; patient may remove Optifoam in 3 days and shower without a dressing at that time 5. Medical management can continue to manage patient for patient's other medical diagnoses including acute pancreatitis 6. We will continue to follow the patient closely; from an orthopedic spine standpoint, patient will be cleared for discharge home today if cleared by medicine; Patient can follow-up with Rg Crisostomo PA-C or Dr. Jose Manuel Barger at [facility] in 1 week following discharge
[2019-10-13] MEDS ORDERED: INSULIN DETEMIR (LEVEMIR) 100 UNIT/ML SYR SQ SCH (21:00)
[2019-10-17] MEDS ORDERED: ERGOCALCIFEROL 50,000 UNIT CAP PO SCH (12:00)
== END 2019-10-13 13:18 | disposition home health service (06) | DRG 471 ==
LOC: EC 20:19 → 5NMEDONC 22:57 → OBSVTOIN 10-08 14:14 → 5NMEDONC 10-10 11:10
PROVIDERS: ADMIT Hospitalist; ATTEND Hospitalist
PROC: 0RG20A0 Fusion of 2 or more Cervical Vertebral Joints with Interbody Fusion Device, Anterior Approach, Anterior Column, Open Approach (ICD-10-PCS; principal; 2019-10-11 08:00)
DX: M48.02 Spinal stenosis, cervical region (principal); K85.20 Alcohol induced acute pancreatitis without necrosis or infection; S12.690A Other displaced fracture of seventh cervical vertebra, initial encounter for closed fracture; M50.023 Cervical disc disorder at C6-C7 level with myelopathy; K86.0 Alcohol-induced chronic pancreatitis; K86.3 Pseudocyst of pancreas; M50.123 Cervical disc disorder at C6-C7 level with radiculopathy; X58.XXXA Exposure to other specified factors, initial encounter; E11.65 Type 2 diabetes mellitus with hyperglycemia; E66.9 Obesity, unspecified; E78.5 Hyperlipidemia, unspecified; F17.210 Nicotine dependence, cigarettes, uncomplicated; F41.9 Anxiety disorder, unspecified; F31.9 Bipolar disorder, unspecified; G47.33 Obstructive sleep apnea (adult) (pediatric); G89.29 Other chronic pain; I10 Essential (primary) hypertension; J44.9 Chronic obstructive pulmonary disease, unspecified; K21.9 Gastro-esophageal reflux disease without esophagitis; T38.0X5A Adverse effect of glucocorticoids and synthetic analogues, initial encounter; M19.91 Primary osteoarthritis, unspecified site; M47.816 Spondylosis without myelopathy or radiculopathy, lumbar region; Z20.828 Contact with and (suspected) exposure to other viral communicable diseases; D72.829 Elevated white blood cell count, unspecified; Z68.31 Body mass index [BMI] 31.0-31.9, adult; Z79.1 Long term (current) use of non-steroidal anti-inflammatories (NSAID); Z79.4 Long term (current) use of insulin; Z79.82 Long term (current) use of aspirin; Z79.899 Other long term (current) drug therapy; Z96.41 Presence of insulin pump (external) (internal); Z98.1 Arthrodesis status; Z88.8 Allergy status to other drugs, medicaments and biological substances; Z90.49 Acquired absence of other specified parts of digestive tract; Z98.890 Other specified postprocedural states; Z86.14 Personal history of Methicillin resistant Staphylococcus aureus infection; Z99.89 Dependence on other enabling machines and devices; Z82.49 Family history of ischemic heart disease and other diseases of the circulatory system
CPT/HCPCS: 36415; 72020; 72156; 74177; 80048; 80053; 80061; 81003; 82150; 82787; 83605; 83690; 85025; 85027; 85610; 85730; 88307; 88311; 96361; 96374; 96375; 99285

== ENCOUNTER 2019-10-17 05:51 | Inpatient (IN) | payer MEDICARE, OTHER ==
[2019-10-17] MEDS ORDERED: SODIUM CHLORIDE 0.9% 1,000 ML IV STA (06:29)
[2019-10-17] MEDS ORDERED: HYDROmorphone 1 MG/ML 1 ML SYRINGE IVP STA ×2 (06:30→08:57)
--- NOTE | 2019-10-17 06:33 | ED ---
General Adult HPI - General Chief complaint: Back Pain/Injury Stated complaint: Neck Pain Post Op Time Seen by Provider: 10/17/19 06:21 Source: patient, RN notes reviewed, old records reviewed Mode of arrival: ambulatory Limitations: no limitations - History of Present Illness Initial comments: Patient is a 54-year-old male 1 week post op for cervical fusion presents emergency department today with right shoulder pain radiating towards the front of his chest. He reports it started today after he left the hospital. Reports it feels better if he puts pressure on the shoulder blade and stance against a door wall. Patient states that he occasionally gets shooting pains on the right arm. He states the pain is not being managed with [place] and muscle relaxers. Patient states that he has had no specific fevers or chills. He states that the pain does seem worse with coughing or taking a breath. He denies any nausea, vomiting. Denies leg swelling. He is a smoker. - Related Data Home Medications Medication Instructions Recorded Confirmed Fenofibrate Nanocrystallized 145 mg PO DAILY 08/07/13 10/06/19 [Fenofibrate] Metoprolol Tartrate [Lopressor] 25 mg PO BID 08/07/13 10/06/19 Montelukast [Singulair] 10 mg PO HS 08/07/13 10/06/19 QUEtiapine FUMARATE [SEROquel] 300 mg PO HS 10/01/16 10/06/19 lamoTRIgine 200 mg PO BID 10/01/16 10/06/19 Multivitamins, Thera [Multivitamin 1 tab PO DAILY 10/22/16 10/06/19 (formulary)] amLODIPine [Norvasc] 5 mg PO DAILY 10/22/16 10/06/19 Ergocalciferol [Vitamin D2 50,000 unit PO SA 10/31/18 10/06/19 (DRISDOL)] Insulin Glargine,Hum.rec.anlog 72 unit SQ HS 10/31/18 10/06/19 [Basaglar Kwikpen U-100] Melatonin 10 mg PO HS 10/31/18 10/06/19 Albuterol Sulfate [Ventolin HFA] 1 - 2 puff INHALATION RT-Q6H PRN 09/02/19 10/06/19 Aspirin EC [Ecotrin Low Dose] 81 mg PO DAILY 09/02/19 10/06/19 DULoxetine HCL [Cymbalta] 30 mg PO BID 09/02/19 10/06/19 Diclofenac Sodium Gel [Voltaren 2 gm TOPICAL QID 09/02/19 10/06/19 Gel] Dicyclomine [Bentyl] 20 mg PO Q6H PRN 09/02/19 10/06/19 Famotidine 40 mg PO DAILY 09/02/19 10/06/19 INSULIN ASPART (NovoLOG) [NovoLOG See Protocol SQ ACHS 09/02/19 10/06/19 (formulary)] QUEtiapine [SEROquel] 100 mg PO BID@0800,1200 09/02/19 10/06/19 traZODone HCL [Desyrel] 100 mg PO HS 09/02/19 10/06/19 Gabapentin [Neurontin] 300 mg PO BID 10/06/19 10/06/19 Previous Rx's Medication Instructions Recorded Meloxicam [Mobic] 7.5 mg PO BID PRN #0 09/04/19 Pravastatin Sodium [Pravachol] 40 mg PO HS #30 tab 09/04/19 HYDROcodone/APAP 7.5-325MG [[place] 1 tab PO Q4H PRN 7 Days #42 tab 10/12/19 7.5-325] Allergies Allergy/AdvReac Type Severity Reaction Status Date / Time haloperidol [From Haldol] AdvReac Hallucinati Verified 10/17/19 05:57 ons haloperidol lactate AdvReac Hallucinati Verified 10/17/19 05:57 [From Haldol] ons Review of Systems ROS Statement: Those systems with pertinent positive or pertinent negative responses have been documented in the HPI. ROS Other: All systems not noted in ROS Statement are negative. 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, pancreatitis History of Any Multi-Drug Resistant Organisms: MRSA Date of last positivie culture/infection: 11/03/2008 MDRO Source:: spine Past Surgical History: Cholecystectomy Additional Past Surgical History / Comment(s): spinal fusion at L4 and L5, pancreatic surgery for pseudocyst w/stent Past Anesthesia/Blood Transfusion Reactions: No Reported Reaction Past Psychological History: Anxiety, Bipolar, Depression Smoking Status: Current every day smoker Past Alcohol Use History: None Reported Past Drug Use History: None Reported - Past Family History Mother Family Medical History: Hypertension Additional Family Medical History / Comment(s): Pt states mother had no health problems. Father Family Medical History: No Reported History Additional Family Medical History / Comment(s): pt stated his father is - had no medicals problems and of natural causes. General Exam - General Exam Comments Initial Comments: 54-year-old male. Alert and oriented 3. Patient is moderate discomfort. Limitations: no limitations General appearance: alert, in no apparent distress Head exam: Present: atraumatic, normocephalic, normal inspection Eye exam: Present: normal appearance, PERRL, EOMI. Absent: scleral icterus, conjunctival injection, periorbital swelling ENT exam: Present: normal exam, mucous membranes moist Neck exam: Present: normal inspection, other (Patient is a neck brace.). Absent: tenderness, meningismus, lymphadenopathy Respiratory exam: Present: normal lung sounds bilaterally. Absent: respiratory distress, wheezes, rales, rhonchi, stridor Cardiovascular Exam: Present: regular rate, normal rhythm, normal heart sounds. Absent: systolic murmur, diastolic murmur, rubs, gallop, clicks GI/Abdominal exam: Present: soft, normal bowel sounds. Absent: distended, tenderness, guarding, rebound, rigid Extremities exam: Present: normal inspection, full ROM, normal capillary refill. Absent: tenderness, pedal edema, joint swelling, calf tenderness Back exam: Present: normal inspection, full ROM, tenderness (Patient has tenderness over the right scapula and point tenderness at this spot.) Neurological exam: Present: alert, oriented X3, CN II-XII intact Psychiatric exam: Present: normal affect, normal mood Skin exam: Present: warm, dry, intact, normal color. Absent: rash Course Vital Signs 10/17/19 05:56 Temperature 98.2 F Pulse Rate 113 H Respiratory 20 Rate Blood Pressure 134/86 O2 Sat by Pulse 96 Oximetry Medical Decision Making - Medical Decision Making This patient's a 54-year-old male with a history of recent cervical fusion after a fall last week. He is also negative for pancreatitis. Patient arrives today complaining of right shoulder pain radiating through the chest. He is a smoker. Denied any significant bloody cough. Patient was given IV fluids labwork obtained. Initial concern was for pulmonary animals in. Computed tomography scan shows evidence of alveolar edema concerns for developing infiltrate m ultiple osseous lytic lesions concerning for possible metastatic disease. Patient will be started at this time on IV antibiotics Rocephin and azithromycin for pneumonia. He has had received multiple doses of narcotic pain medication for pain relief still continued to appear in moderate discomfort. Patient at this time will be admitted to [facility]. - Lab Data Result diagrams: 10/17/19 06:33 10/17/19 06:33 Lab Results 10/17/19 10/17/19 10/17/19 Range/Units 06:33 06:33 06:33 WBC 10.5 (3.8-10.6) k/uL RBC 4.10 L (4.30-5.90) m/uL Hgb 12.2 L (13.0-17.5) gm/dL Hct 39.0 (39.0-53.0) % MCV 95.1 (80.0-100.0) fL MCH 29.7 (25.0-35.0) pg MCHC 31.3 (31.0-37.0) g/dL RDW 12.6 (11.5-15.5) % Plt Count 246 (150-450) k/uL Neutrophils % 79 % Lymphocytes % 12 % Monocytes % 5 % Eosinophils % 3 % Basophils % 0 % Neutrophils # 8.3 H (1.3-7.7) k/uL Lymphocytes # 1.3 (1.0-4.8) k/uL Monocytes # 0.5 (0-1.0) k/uL Eosinophils # 0.3 (0-0.7) k/uL Basophils # 0.0 (0-0.2) k/uL PT 9.6 (9.0-12.0) sec INR 0.9 (<1.2) APTT 26.0 (22.0-30.0) sec D-Dimer 1.49 H (<0.60) mg/L FEU Sodium 130 L (137-145) mmol/L Potassium 4.5 (3.5-5.1) mmol/L Chloride 96 L (98-107) mmol/L Carbon Dioxide 27 (22-30) mmol/L Anion Gap 7 mmol/L BUN 19 (9-20) mg/dL Creatinine 0.93 (0.66-1.25) mg/dL Est GFR (CKD-EPI)AfAm >90 (>60 ml/min/1.73 sqM) Est GFR (CKD-EPI)NonAf >90 (>60 ml/min/1.73 sqM) Glucose 606 H* (74-99) mg/dL POC Glucose (mg/dL) (75-99) mg/dL POC Glu [employer] ID Calcium 9.3 (8.4-10.2) mg/dL Magnesium 1.5 L (1.6-2.3) mg/dL Total Bilirubin 0.6 (0.2-1.3) mg/dL AST 22 (17-59) U/L ALT 24 (4-49) U/L Alkaline Phosphatase 154 H (38-126) U/L Troponin I (0.000-0.034) ng/mL NT-Pro-B Natriuret Pep pg/mL Total Protein 6.1 L (6.3-8.2) g/dL Albumin 3.6 (3.5-5.0) g/dL 10/17/19 10/17/19 10/17/19 Range/Units 06:33 06:33 07:19 WBC (3.8-10.6) k/uL RBC (4.30-5.90) m/uL Hgb (13.0-17.5) gm/dL Hct (39.0-53.0) % MCV (80.0-100.0) fL MCH (25.0-35.0) pg MCHC (31.0-37.0) g/dL RDW (11.5-15.5) % Plt Count (150-450) k/uL Neutrophils % % Lymphocytes % % Monocytes % % Eosinophils % % Basophils % % Neutrophils # (1.3-7.7) k/uL Lymphocytes # (1.0-4.8) k/uL Monocytes # (0-1.0) k/uL Eosinophils # (0-0.7) k/uL Basophils # (0-0.2) k/uL PT (9.0-12.0) sec INR (<1.2) APTT (22.0-30.0) sec D-Dimer (<0.60) mg/L FEU Sodium (137-145) mmol/L Potassium (3.5-5.1) mmol/L Chloride (98-107) mmol/L Carbon Dioxide (22-30) mmol/L Anion Gap mmol/L BUN (9-20) mg/dL Creatinine (0.66-1.25) mg/dL Est GFR (CKD-EPI)AfAm (>60 ml/min/1.73 sqM) Est GFR (CKD-EPI)NonAf (>60 ml/min/1.73 sqM) Glucose (74-99) mg/dL POC Glucose (mg/dL) 579 H (75-99) mg/dL POC Glu [employer] Huseiyn Grace Calcium (8.4-10.2) mg/dL Magnesium (1.6-2.3) mg/dL Total Bilirubin (0.2-1.3) mg/dL AST (17-59) U/L ALT (4-49) U/L Alkaline Phosphatase (38-126) U/L Troponin I <0.012 (0.000-0.034) ng/mL NT-Pro-B Natriuret Pep 138 pg/mL Total Protein (6.3-8.2) g/dL Albumin (3.5-5.0) g/dL 10/17/19 Range/Units 08:38 WBC (3.8-10.6) k/uL RBC (4.30-5.90) m/uL Hgb (13.0-17.5) gm/dL Hct (39.0-53.0) % MCV (80.0-100.0) fL MCH (25.0-35.0) pg MCHC (31.0-37.0) g/dL RDW (11.5-15.5) % Plt Count (150-450) k/uL Neutrophils % % Lymphocytes % % Monocytes % % Eosinophils % % Basophils % % Neutrophils # (1.3-7.7) k/uL Lymphocytes # (1.0-4.8) k/uL Monocytes # (0-1.0) k/uL Eosinophils # (0-0.7) k/uL Basophils # (0-0.2) k/uL PT (9.0-12.0) sec INR (<1.2) APTT (22.0-30.0) sec D-Dimer (<0.60) mg/L FEU Sodium (137-145) mmol/L Potassium (3.5-5.1) mmol/L Chloride (98-107) mmol/L Carbon Dioxide (22-30) mmol/L Anion Gap mmol/L BUN (9-20) mg/dL Creatinine (0.66-1.25) mg/dL Est GFR (CKD-EPI)AfAm (>60 ml/min/1.73 sqM) Est GFR (CKD-EPI)NonAf (>60 ml/min/1.73 sqM) Glucose (74-99) mg/dL POC Glucose (mg/dL) 322 H (75-99) mg/dL POC Glu [employer] Huseyin Grace Calcium (8.4-10.2) mg/dL Magnesium (1.6-2.3) mg/dL Total Bilirubin (0.2-1.3) mg/dL AST (17-59) U/L ALT (4-49) U/L Alkaline Phosphatase (38-126) U/L Troponin I (0.000-0.034) ng/mL NT-Pro-B Natriuret Pep pg/mL Total Protein (6.3-8.2) g/dL Albumin (3.5-5.0) g/dL - Radiology Data Radiology results: report reviewed EKG shows demand pacemaker interpretation on physical rhythm. Sinus like her to PVCs. Otherwise normal EKG. Ventricular rate of 122 beats were minute. Pulse 156 ms. Laceration is 108 ms. QT QTc is 350/[address] is negative for acute pulmonary is in. Matter multifocal areas of groundglass opacity could reflect multifocal alveolar edema and/or developing infiltrates. Background mild to moderate underlying emphysema changes. Non- scattered bilateral subcentimeter nodules. Metastatic disease is not excluded. 10 minute short-term follow-up CT in 6 months. Some scattered suspicious lytic lesions throughout a structures. Differential includes lytic metastatic disease versus multiple myeloma. Clinical correlation and follow-up is advised. Disposition Clinical Impression: S/P neck surgery, follow-up exam, Shoulder pain, right, Pneumonia, Abnormal CT scan, chest, Hyperglycemia Disposition: ADMITTED IP TO THIS HOSP Condition: Stable Is patient prescribed a controlled substance at d/c from ED?: No Referrals: Jordon Wood MD [Primary Care Provider] - 1-2 days Time of Disposition: 09:10
[2019-10-17 06:57] LABS: Basophils % (A) 0 %; Eosinophils # (A) 0.3 k/uL (0-0.7); Eosinophils % (A) 3 %; HGB 12.2 gm/dL (13.0-17.5); Lymphocytes # (A) 1.3 k/uL (1.0-4.8); Lymphocytes % (A) 12 %; MCH 29.7 pg (25.0-35.0); MCHC 31.3 g/dL (31.0-37.0); MCV 95.1 fL (80.0-100.0); Mean Platelet Volume 7.7; Monocytes # (A) 0.5 k/uL (0-1.0); Monocytes % (A) 5 %; Neutrophils # (A) 8.3 k/uL (1.3-7.7); Neutrophils % (A) 79 %; Platelet Count 246 k/uL (150-450); RDW 12.6 % (11.5-15.5); WBC 10.5 k/uL (3.8-10.6)
[2019-10-17 07:07] LABS: ALT 24 U/L (4-49); AST 22 U/L (17-59); African American GFR (CKD) >90 (>60 ml/min/1.73 sqM); Albumin 3.6 g/dL (3.5-5.0); Alkaline Phosphatase 154 U/L (38-126); Anion Gap 7 mmol/L; Blood Urea Nitrogen 19 mg/dL (9-20); Calcium 9.3 mg/dL (8.4-10.2); Carbon Dioxide 27 mmol/L (22-30); Chloride 96 mmol/L (98-107); Magnesium 1.5 mg/dL (1.6-2.3); Non-African American GFR(CKD) >90 (>60 ml/min/1.73 sqM); Potassium 4.5 mmol/L (3.5-5.1); Sodium 130 mmol/L (137-145); Total Bilirubin 0.6 mg/dL (0.2-1.3); Total Protein 6.1 g/dL (6.3-8.2)
--- NOTE | 2019-10-17 07:09 | XR ---
EXAMINATION TYPE: XR chest 2V DATE OF EXAM: 10/17/2019 COMPARISON: Chest x-ray September 02, 2019. CTA chest October 22, 2016. HISTORY: Chest and right shoulder pain. TECHNIQUE: Frontal and lateral views of the chest are obtained. FINDINGS: Slightly elevated left hemidiaphragm redemonstrated. Slightly suboptimal as external device overlies the left upper lung. Background chronic emphysematous change seen better on CT versus plain films. There is no new suspicious focal air space opacity, pleural effusion, or pneumothorax seen bi laterally. The cardiac silhouette size remains within normal limits. The osseous structures are in tact. IMPRESSION: Chronic changes without new suspicious acute pulmonary process.
[2019-10-17 07:11] LABS: INR 0.9 (<1.2); Prothrombin Time 9.6 sec (9.0-12.0)
[2019-10-17 07:15] LABS: Glucose 606 mg/dL (74-99)
[2019-10-17 07:16] LABS: D-Dimer 1.49 mg/L FEU (<0.60)
[2019-10-17] MEDS ORDERED: INSULIN REGULAR 100 UNIT/ML VIAL IV ONE (07:16)
[2019-10-17] MEDS ORDERED: KETOROLAC 15 MG/ML 1 ML VIAL IVP STA (07:20)
[2019-10-17 07:21] LABS: Glucose,Whole Blood 579 mg/dL (75-99)
--- NOTE | 2019-10-17 08:22 | CT ---
EXAMINATION TYPE: CT chest angio for PE DATE OF EXAM: 10/17/2019 COMPARISON: Chest x-ray earlier today. HISTORY: Positive d-dimer chest pain. CT DLP: 638.7 mGycm. Automated Exposure Control for Dose Reduction was Utilized. CONTRAST: CTA scan of the thorax is performed without and with IV Contrast, patient injected with 100 ml mL of Isovue 370, pulmonary embolism protocol. MIP Images are created on CT scanner and reviewed. FINDINGS: LUNGS: Background chronic emphysematous change with slightly elevated left hemidiaphragm. Multifocal areas of increased opacity or mosaic attenuation greatest anterior right lobe consistent with multifo fatmata alveolar edema and/or acute infiltrates. A few scattered peripheral calcified nodules or granulom as. There are additional scattered small noncalcified nodules. For reference there is a 4 to 5 mm non calcified nodule in the lower periphery right upper lobe axial image 58. There is 7 x 3 mm superior left lower lobe nodule axial image 62. Scattered smaller noncalcified nodules are noted bilaterally. MEDIASTINUM: There is satisfactory enhancement of the pulmonary artery and its branches, there is no CT evidence for pulmonary embolism. There are prominent thoracic lymph nodes. For reference there is subcarinal lymph node measuring 2.2 x 1.5 cm axial image 75. Additional prominent borderline enlarge d prevascular, right hilar, and paracarinal lymph nodes are present. No cardiomegaly or pericardial e ffusion is seen. Coronary artery calcification or stent proximal LAD axial image 80, correlate clinic ally. OTHER: There is suspected thin-walled 3.5 cm cyst posterior to this greater curvature stomach axial i mage 155 partially imaged, possible duplication cyst, but etiology is not excluded. Osseous structure s are demineralized. Few suspicious scattered tiny lucent or lytic lesions, largest for reference inv olve the T7 vertebra anteriorly coronal image 106. Partial visualization of surgical change in the lo wer cervical spine. Prominent bilateral subareolar gynecomastia. Moderate subcutaneous edema with sma ll focus of air in the anterior lower neck likely reflects product of recent neck surgery 6 days jorge ier. IMPRESSION: 1. No CT evidence for acute pulmonary embolism. 2. Matter multifocal areas of groundglass opacity could reflect multifocal alveolar edema and/or deve loping acute infiltrates. Correlate clinically. 3. Background Mild to moderate underlying emphysematous change. Nonspecific scattered bilateral subce ntimeter nodules. Metastatic disease not excluded. At minimum short-term follow-up CT in 6 months marc e is advised. Correlate clinically. 4. Some scattered suspicious lytic lesions throughout visualized osseous structures, differential inc ludes lytic metastatic disease versus multiple myeloma. Clinical correlation and follow-up advised.
[2019-10-17 08:39] LABS: Glucose,Whole Blood 322 mg/dL (75-99)
[2019-10-17] MEDS ORDERED: AZITHROMYCIN 500 MG in SODIUM CHLORIDE 0.9% 250 ML IVPB STA (08:57)
[2019-10-17] MEDS ORDERED: LORazepam 2 MG/ML INJ IV STA (08:57)
[2019-10-17] MEDS ORDERED: IBUPROFEN 400 MG TAB PO PRN (09:11)
[2019-10-17] MEDS ORDERED: ONDANSETRON 4 MG/2 ML VIAL IVP PRN (09:11)
[2019-10-17] MEDS ORDERED: ACETAMINOPHEN TAB 325 MG TAB PO PRN (09:11)
[2019-10-17] MEDS ORDERED: NALOXONE 0.4 MG/ML 1 ML VIAL IV PRN (09:11)
[2019-10-17] MEDS: SODIUM CHLORIDE 0.9% 1,000 ML IV SCH ×3 (10:01→23:04)
[2019-10-17] MEDS: HYDROmorphone 1 MG/ML 1 ML SYRINGE IVP PRN ×4 (11:34→21:18)
[2019-10-17 12:05] LABS: Glucose,Whole Blood 285 mg/dL (75-99)
[2019-10-17] MEDS: KETOROLAC 15 MG/ML 1 ML VIAL IVP PRN ×2 (12:48→19:32)
[2019-10-17] MEDS: INSULIN ASPART (NovoLOG) 100 UNIT/ML VIAL SQ SCH ×3 (12:48→20:50)
--- NOTE | 2019-10-17 13:21 | P.CNPUL ---
History of Present Illness Consult date: 10/17/19 Requesting physician: Giancarlo Escobar Reason for consult: abnormal CXR/CT Chief complaint: Right scapula pain History of present illness: This is a very pleasant 54-year-old gentleman who follows with Dr. sayra Loera as his primary care provider. He has a history of hypertension, obesity, diabetes mellitus, osteoarthritis, obstructive sleep apnea utilizing BiPAP, osteomyelitis and spine after fusion surgery, pancreatitis, bipolar disorder, chronic tobacco dependence. He had recently undergone cervical spine surgery with fusion of the 67 and C7-T1 and discharged home on 10/13/2019. He presented to the emergency room early this morning with complaints of right shoulder and scapula pain radiating to the front of his chest. Some right arm discomfort. No fever, no chills. No shortness of breath cough or congestion. CT angiogram revealed no evidence of acute pulmonary embolism. There was some multifocal areas of groundglass opacities that could reflect multifocal alveolar edema and/or developing acute infiltrates. Background mild to moderate emphysema. Nonspecific scattered bilateral subcentimeter nodules. We're consulted for the same. There was some scattered suspicious lytic lesions throughout the osseous structures. He is seen today in consultation on the regular medical floor. He is currently sitting up at the bedside. Awake and alert in no acute distress. He denies any pulmonary symptoms. No shortness of breath, cough or congestion. No fever chills or night sweats. He is having ongoing right scapula pain that radiates through to his anterior chest. White count 10.5. Hemoglobin 12.2. D- dimer 1.49. Sodium 1:30. Potassium 4.5. Creatinine 0.93. Glucose 606. ProBNP 138. Troponin negative 1. He was given ceftriaxone and azithromycin in the emergency room. 0.9#830 ML's per hour. He has been receiving Dilaudid, Toradol, Ativan. Review of Systems REVIEW OF SYSTEMS: CONSTITUTIONAL: Denies any recent significant weight loss or weight gain. EYES: Denies change in vision. EARS, NOSE, MOUTH, THROAT: Denies headaches, denies sore throat. CARDIOVASCULAR: Denies chest pain, palpitations or syncopal episodes. RESPIRATORY: Denies shortness of breath, cough, congestion or hemoptysis. GASTROINTESTINAL: Denies change in appetite, denies abdominal pain GENITOURINARY: Denies hematuria, denies infections. MUSKULOSKELETAL: Positive for right scapular, right anterior chest and right arm pain, denies swelling. INTEGUMENTARY: Denies rash, denies eczema. NEUROLOGICAL: Denies recent memory loss, no recent seizure activity. PSYCHIATRIC: Denies anxiety, denies depression. HEMATOLOGIC/LYMPHATIC: Denies anemia, denies enlarged lymph nodes. 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, pancreatitis History of Any Multi-Drug Resistant Organisms: MRSA Date of last positivie culture/infection: 11/03/2008 MDRO Source:: spine Past Surgical History: Cholecystectomy Additional Past Surgical History / Comment(s): spinal fusion at L4 and L5, pancreatic surgery for pseudocyst w/stent Past Anesthesia/Blood Transfusion Reactions: No Reported Reaction Past Psychological History: Anxiety, Bipolar, Depression Smoking Status: Current every day smoker Past Alcohol Use History: None Reported Past Drug Use History: None Reported - Past Family History Mother Family Medical History: Hypertension Additional Family Medical History / Comment(s): Pt states mother had no health problems. Father Family Medical History: No Reported History Additional Family Medical History / Comment(s): pt stated his father is - had no medicals problems and of natural causes. Medications and Allergies Home Medications Medication Instructions Recorded Confirmed Type Fenofibrate Nanocrystallized 145 mg PO DAILY 08/07/13 10/17/19 History [Fenofibrate] Metoprolol Tartrate [Lopressor] 25 mg PO BID 08/07/13 10/17/19 History Montelukast [Singulair] 10 mg PO HS 08/07/13 10/17/19 History QUEtiapine FUMARATE [SEROquel] 300 mg PO HS 10/01/16 10/17/19 History lamoTRIgine 200 mg PO BID 10/01/16 10/17/19 History Multivitamins, Thera [Multivitamin 1 tab PO DAILY 10/22/16 10/17/19 History (formulary)] amLODIPine [Norvasc] 5 mg PO DAILY 10/22/16 10/17/19 History Ergocalciferol [Vitamin D2 50,000 unit PO SA 10/31/18 10/17/19 History (DRISDOL)] Insulin Glargine,Hum.rec.anlog 75 unit SQ HS 10/31/18 10/17/19 History [Basaglar Kwikpen U-100] Melatonin 10 mg PO HS 10/31/18 10/17/19 History Albuterol Sulfate [Ventolin HFA] 1 - 2 puff INHALATION RT-Q6H PRN 09/02/19 10/17/19 History DULoxetine HCL [Cymbalta] 30 mg PO BID 09/02/19 10/17/19 History Diclofenac Sodium Gel [Voltaren 2 gm TOPICAL QID PRN 09/02/19 10/17/19 History Gel] Dicyclomine [Bentyl] 20 mg PO Q6H PRN 09/02/19 10/17/19 History Famotidine 40 mg PO DAILY 09/02/19 10/17/19 History INSULIN ASPART (NovoLOG) [NovoLOG See Protocol SQ ACHS 09/02/19 10/17/19 History (formulary)] QUEtiapine [SEROquel] 100 mg PO BID@0800,1200 09/02/19 10/17/19 History traZODone HCL [Desyrel] 100 mg PO HS 09/02/19 10/17/19 History Meloxicam [Mobic] 7.5 mg PO BID PRN #0 09/04/19 10/17/19 Rx Pravastatin Sodium [Pravachol] 40 mg PO HS #30 tab 09/04/19 10/17/19 Rx Gabapentin [Neurontin] 300 mg PO BID 10/06/19 10/17/19 History HYDROcodone/APAP 7.5-325MG [[place] 1 tab PO Q4H PRN 7 Days #42 tab 10/12/19 10/17/19 Rx 7.5-325] Allergies Allergy/AdvReac Type Severity Reaction Status Date / Time haloperidol [From Haldol] AdvReac Hallucinati Verified 10/17/19 12:39 ons haloperidol lactate AdvReac Hallucinati Verified 10/17/19 12:39 [From Haldol] ons Physical Exam Vitals: Vital Signs Temp Pulse Resp BP Pulse Ox 10/17/19 10:05 112 H 18 144/93 96 10/17/19 05:56 98.2 F 113 H 20 134/86 96 Intake and Output 10/16/19 10/17/19 10/17/19 22:59 06:59 14:59 Other: Weight 108.862 kg GENERAL EXAM: Alert, pleasant 54-year-old gentleman, on room air, uncomfortable in the right scapular region. HEAD: Normocephalic. EYES: Normal reaction of pupils, equal size. NOSE: Clear with pink turbinates. THROAT: No erythema or exudates. NECK: No masses, no JVD. CHEST: No chest wall deformity. LUNGS: Equal air entry with no crackles, wheeze, rhonchi or dullness. CVS: S1 and S2 normal with no audible murmur, regular rhythm. ABDOMEN: No hepatosplenomegaly, normal bowel sounds, no guarding or rigidity. SPINE: No scoliosis or deformity SKIN: Cervical incisions clean dry and approximate from recent surgery No rashes CENTRAL NERVOUS SYSTEM: No focal deficits, tone is normal in all 4 extremities. EXTREMITIES: There is no peripheral edema. No clubbing, no cyanosis. Peripheral pulses are intact. Results - Laboratory Findings CBC and BMP: 10/17/19 06:33 10/17/19 06:33 PT/INR, D-dimer PT 9.6 sec (9.0-12.0) 10/17/19 06:33 INR 0.9 (<1.2) 10/17/19 06:33 D-Dimer 1.49 mg/L FEU (<0.60) H 10/17/19 06:33 Abnormal lab findings: Abnormal Labs 10/17/19 10/17/19 10/17/19 06:33 06:33 06:33 RBC 4.10 L Hgb 12.2 L Neutrophils # 8.3 H D-Dimer 1.49 H Sodium 130 L Chloride 96 L Glucose 606 H* POC Glucose (mg/dL) Magnesium 1.5 L Alkaline Phosphatase 154 H Total Protein 6.1 L 10/17/19 10/17/19 10/17/19 07:19 08:38 11:47 RBC Hgb Neutrophils # D-Dimer Sodium Chloride Glucose POC Glucose (mg/dL) 579 H 322 H 285 H Magnesium Alkaline Phosphatase Total Protein - Diagnostic Findings Chest x-ray: image reviewed CT scan - chest: image reviewed Assessment and Plan Assessment: Significant pain and discomfort in the right shoulder, scapula, anterior chest and right arm of unclear etiology. Recent cervical neck surgery, discharge on 10/13/2019. Pulmonary embolism ruled out. Scattered suspicious lytic lesions throughout the osseous structures, differential includes a lytic metastatic disease versus multiple myeloma Multifocal areas of groundglass opacity with possible multifocal alveolar edema versus developing acute infiltrates without any pulmonary symptoms Mild to moderate underlying emphysematous changes with nonspecific scattered bilateral subcentimeter nodules Chronic and ongoing tobacco dependence Diabetes mellitus Hypertension Morbid obesity Obstructive sleep apnea utilizing BiPAP in the outpatient setting History of pancreatitis with pseudocyst and previous stent placement History of anxiety/depression/bipolar 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 Sifuentes Chest x-ray, computed tomography scan, labs reviewed Nonspecific pulmonary nodules to be followed up in a month with computed t omography scan Obtain protein electrophoresis to rule out multiple myeloma Consult orthopedics for pain management and recent surgical intervention Educated regarding the importance of complete smoking cessation We will continue to follow I, the cosigning physician, performed a history & physical examination of the patient. Lungs sounds are clear. Maintaining good O2 saturations in the 90s on room air. I discussed the assessment and plan of care with my nurse practitioner, Isela Prasad. I attest to the above consultation as dictated by her. Time with Patient: Greater than 30
[2019-10-17] MEDS: LORazepam 0.5 MG TAB PO PRN ×2 (13:40→22:04)
[2019-10-17] MEDS: DEXAMETHASONE SOD PHOSPHATE 4 MG/ML 1 ML VIAL IV SCH ×3 (16:19→23:04)
[2019-10-17] MEDS ORDERED: DICLOFENAC SODIUM GEL 100 GM TUBE TOPICAL PRN (16:22)
[2019-10-17] MEDS ORDERED: ERGOCALCIFEROL 50,000 UNIT CAP PO SCH (16:30)
[2019-10-17] MEDS ORDERED: QUEtiapine 100 MG TAB PO STA (16:35)
[2019-10-17 17:11] LABS: Glucose,Whole Blood 272 mg/dL (75-99)
[2019-10-17] MEDS: NICOTINE 14MG/24HR PATCH TRANSDERM SCH (17:16)
[2019-10-17] MEDS: MAGNESIUM SULFATE-D5W PMX 1 GM in DEXTROSE/WATER 1 100ML.BAG IVPB SCH ×4 (17:17→23:04)
[2019-10-17 17:50] LABS: Protein, Total 6.1 g/dL (6.2-8.2)
[2019-10-17 20:23] LABS: Glucose,Whole Blood 277 mg/dL (75-99)
--- NOTE | 2019-10-17 20:31 | P.HPIM ---
History of Present Illness H&P Date: 10/17/19 Chief Complaint: right arm pain Patient is a 54-year-old male with insulin-dependent diabetes mellitus currently transitioning to a pump, chronic arthritis status post cervical fusion, GERD, hypertension, and obstructive sleep apnea on BiPAP who presented to the hospital complaints of right-sided severe shoulder pain. Patient underwent ORIF C7 burst fracture with cervical dissectomy and fusion on and was discharged on 10/13/2019. On arrival to the emergency department he was noted to be tachycardic with a heart rate of 113. Laboratory analysis showed an elevated d-dimer at 1.49, sodium 1:30, chloride 96, glucose 606, magnesium 1.5. In the emergency department he underwent a CTA of the chest which showed no evidence of acute pulmonary embolism, multifocal groundglass opacities as well as alveolar edema or develop any acute infiltrates, background mild to moderate emphysematous changes, scattered nonspecific bilateral subcentimeter nodules with follow-up CT in 6 month, and scattered suspicious lytic lesions throughout the visualized osseous structures differential includes metastatic disease versus multiple myeloma. Despite receiving multiple medications in the ER he continued to have significant right shoulder plain and arrangements were subsequently made for admission. He was also started on antibiotics for possible pneumonia. Pulmonary was consulted. Patient seen and examined at bedside. He is very sleepy after having received pain medications, he does awake to voice but falls back asleep. After about 10- 15 minutes he awakes fully. He appears to have a racing thoughts and difficulty with concentration. Initially he describes right arm pain that he states started after his cervical spine surgery. He then states that he has had right arm pain for several months that worsened after his surgery. He states that the [place], gabapentin, and Cymbalta that he takes are not helping the pain. He is unable to describe what makes the pain better or worse. He does state that moving his right arm makes the pain worse. He states the pain occurs in the front of his chest, under his right arm, and in his shoulder blade. He reports that he has a chronic cough but states it is increased from normal. Initially tells me this is after surgery that he tells me this has been happening for several months. He denies any fevers or chills. No significant shortness of breath. He denies any history of cancer. 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 We discussed how he has multiple lytic lesions which may be secondary to his prior osteomyelitis versus malignancy and that he needs to be seen by oncology. Patient with a history of bipolar disorder he appears almost manic at this point with a flight of ideas, not being able to site still, and telling me that he hasn't been sleeping. Review of Systems Pertinent positives and negatives as discussed in HPI, a complete review of systems was performed and all other systems are negative. 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, pancreatitis History of Any Multi-Drug Resistant Organisms: MRSA Date of last positivie culture/infection: 11/03/2008 MDRO Source:: spine Past Surgical History: Cholecystectomy Additional Past Surgical History / Comment(s): spinal fusion at L4 and L5, pancreatic surgery for pseudocyst w/stent Past Anesthesia/Blood Transfusion Reactions: No Reported Reaction Past Psychological History: Anxiety, Bipolar, Depression Smoking Status: Current every day smoker (1/2PPD) Past Alcohol Use History: None Reported Past Drug Use History: None Reported Additional History: With roommate - Past Family History Mother Family Medical History: Hypertension Additional Family Medical History / Comment(s): Pt states mother had no health problems. Father Family Medical History: No Reported History Additional Family Medical History / Comment(s): pt stated his father is dece ased- had no medicals problems and of natural causes. Medications and Allergies Home Medications Medication Instructions Recorded Confirmed Type Fenofibrate Nanocrystallized 145 mg PO DAILY 08/07/13 10/17/19 History [Fenofibrate] Metoprolol Tartrate [Lopressor] 25 mg PO BID 08/07/13 10/17/19 History Montelukast [Singulair] 10 mg PO HS 08/07/13 10/17/19 History QUEtiapine FUMARATE [SEROquel] 300 mg PO HS 10/01/16 10/17/19 History lamoTRIgine 200 mg PO BID 10/01/16 10/17/19 History Multivitamins, Thera [Multivitamin 1 tab PO DAILY 10/22/16 10/17/19 History (formulary)] amLODIPine [Norvasc] 5 mg PO DAILY 10/22/16 10/17/19 History Ergocalciferol [Vitamin D2 50,000 unit PO SA 10/31/18 10/17/19 History (DRISDOL)] Insulin Glargine,Hum.rec.anlog 75 unit SQ HS 10/31/18 10/17/19 History [Basaglar Kwikpen U-100] Melatonin 10 mg PO HS 10/31/18 10/17/19 History Albuterol Sulfate [Ventolin HFA] 1 - 2 puff INHALATION RT-Q6H PRN 09/02/19 10/17/19 History DULoxetine HCL [Cymbalta] 30 mg PO BID 09/02/19 10/17/19 History Diclofenac Sodium Gel [Voltaren 2 gm TOPICAL QID PRN 09/02/19 10/17/19 History Gel] Dicyclomine [Bentyl] 20 mg PO Q6H PRN 09/02/19 10/17/19 History Famotidine 40 mg PO DAILY 09/02/19 10/17/19 History INSULIN ASPART (NovoLOG) [NovoLOG See Protocol SQ ACHS 09/02/19 10/17/19 History (formulary)] QUEtiapine [SEROquel] 100 mg PO BID@0800,1200 09/02/19 10/17/19 History traZODone HCL [Desyrel] 100 mg PO HS 09/02/19 10/17/19 History Meloxicam [Mobic] 7.5 mg PO BID PRN #0 09/04/19 10/17/19 Rx Pravastatin Sodium [Pravachol] 40 mg PO HS #30 tab 09/04/19 10/17/19 Rx Gabapentin [Neurontin] 300 mg PO BID 10/06/19 10/17/19 History HYDROcodone/APAP 7.5-325MG [[place] 1 tab PO Q4H PRN 7 Days #42 tab 10/12/19 10/17/19 Rx 7.5-325] Allergies Allergy/AdvReac Type Severity Reaction Status Date / Time haloperidol [From Haldol] AdvReac Hallucinati Verified 10/17/19 12:39 ons haloperidol lactate AdvReac Hallucinati Verified 10/17/19 12:39 [From Haldol] ons Physical Exam Osteopathic Statement: *. No significant issues noted on an osteopathic structural exam other than those noted in the History and Physical/Consult. Vitals: Vital Signs Temp Pulse Pulse Resp BP BP Pulse Ox 10/17/19 15:00 98.1 F 104 H 16 183/97 94 L 10/17/19 10:05 112 H 18 144/93 96 10/17/19 05:56 98.2 F 113 H 20 134/86 96 Intake and Output 10/17/19 10/17/19 10/17/19 06:59 14:59 22:59 Output Total 200 Balance -200 Output: Urine 200 Other: # Voids 1 Weight 108.862 kg General: non toxic, no distress, appears at stated age Derm: warm, dry Head: atraumatic, normocephalic, symmetric Eyes: EOMI, no lid lag, anicteric sclera, pupils equal round reactive to light ENT: Nose and ears atraumatic, no thrush, no pharyngeal erythema Neck: Cervical collar in place, trachea midline, supple Mouth: no lip lesion, mucus membranes moist Cardiovascular: S1S2 reg, no murmur, positive posterior tibial pulse bilateral, no edema, capillary refill less than 2 seconds Lungs: clear to auscultation bilateral, no ronchi, no rales, no wheeze, no accessory muscle use Abdominal: soft, nontender to palpation, no guarding, no appreciable organomegaly, normal bowel sounds Ext: no gross muscle atrophy, muscle strength muscle strength 5 out of 5 in all 4 extremities, no contractures Neuro: CN II-XII grossly intact, light touch intact all 4 extremities, finger to nose within normal limits, Psych: Alert, oriented, anxious flight of ideas on exam intially sleeping and would taking and then fall back sleep, he then rips his bipap off, and is continually moving his arms and legs in bed unable to sit still, he cannot concentrate. Despite complaining of severe uncontrolled pain he is freeling moving his right arm across his body and over his head. He is sitting with both arms above his head at and 90 degree angle and intertwined. Results CBC & Chem 7: 10/17/19 06:33 10/17/19 06:33 Labs: Abnormal Lab Results - Last 24 Hours (Table) 10/17/19 10/17/19 10/17/19 Range/Units 06:33 06:33 06:33 RBC 4.10 L (4.30-5.90) m/uL Hgb 12.2 L (13.0-17.5) gm/dL Neutrophils # 8.3 H (1.3-7.7) k/uL D-Dimer 1.49 H (<0.60) mg/L FEU Sodium 130 L (137-145) mmol/L Chloride 96 L (98-107) mmol/L Glucose 606 H* (74-99) mg/dL POC Glucose (mg/dL) (75-99) mg/dL Magnesium 1.5 L (1.6-2.3) mg/dL Alkaline Phosphatase 154 H (38-126) U/L Total Protein 6.1 L (6.3-8.2) g/dL 10/17/19 10/17/19 10/17/19 Range/Units 07:19 08:38 11:47 RBC (4.30-5.90) m/uL Hgb (13.0-17.5) gm/dL Neutrophils # (1.3-7.7) k/uL D-Dimer (<0.60) mg/L FEU Sodium (137-145) mmol/L Chloride (98-107) mmol/L Glucose (74-99) mg/dL POC Glucose (mg/dL) 579 H 322 H 285 H (75-99) mg/dL Magnesium (1.6-2.3) mg/dL Alkaline Phosphatase (38-126) U/L Total Protein (6.3-8.2) g/dL Chest x-ray: report reviewed CT scan - chest: report reviewed Thrombosis Risk Factor Assmnt - DVT/VTE Prophylaxis DVT/VTE Prophylaxis: Low risk, early ambulation encouraged Assessment and Plan Assessment: Intractable right shoulder painlytic lesion - Pain medications -PT/OT evaluation -Consult orthopedic surgery Recent open reduction internal fixation a C7 burst fracture -Consult orthopedic surgery -Pain control -Continue as hard cervical collar Multiple thoracic lesions in conjunction with multiple pulmonary nodules -Question if this could be related to recurrent malignancy, multiple myeloma, or prior osteomyelitis -Consult oncology -Pulmonary recommendations appreciated -Check serum protein electrophoresis Diabetes mellitus type 2 with hyperglycemia -Continue with long-acting and sliding scale insulin -Follow blood sugars -Last A1c 11.3 09/03/19 Hypomagnesemia -Replace -Recheck in a.m. Hyponatremia, suspect pseudohyponatremia secondary to hyperglycemia -IV fluids -Recheck in a.m. Tobacco abuse -Smoking cessation Hypertension -Resume home meds Obstructive sleep apnea -BiPAP use Bipolar disorder with zachary - resume home psych meds - if no improvement in AM consult psych The patient is placed in observation with an anticipated less than 2 midnight stay for evaluation of intractable shoulder pain. Surrogate decision-maker: roommate CODE STATUS:full DVT prophylaxis: SCDS Discussed with: patient, nursing Anticipated discharge date: in AM Anticipated discharge place: home A total of 35 minutes was spent on the care of this complex patient more than 50% of the time was spent in counseling and care coordination.
[2019-10-17] MEDS: METOPROLOL TARTRATE 25 MG TAB PO SCH (20:50)
[2019-10-17] MEDS: QUEtiapine 100 MG TAB PO SCH (20:50)
[2019-10-17] MEDS: GABAPENTIN 300 MG CAP PO SCH (20:50)
[2019-10-17] MEDS: PRAVASTATIN SODIUM 40 MG TAB PO SCH (20:50)
[2019-10-17] MEDS: DULoxetine HCL 30 MG CAPSULE.DR PO SCH (20:50)
[2019-10-17] MEDS: MONTELUKAST 10 MG TAB PO SCH (20:50)
[2019-10-17] MEDS: traZODone HCL 100 MG TAB PO SCH (20:50)
[2019-10-17] MEDS: MELATONIN 5 MG TABLET PO SCH (20:51)
[2019-10-17] MEDS: lamoTRIgine 100 MG TAB PO SCH (20:51)
[2019-10-17] MEDS: INSULIN DETEMIR (LEVEMIR) 100 UNIT/ML SYR SQ SCH (21:18)
[2019-10-18 02:10] LABS: Glucose,Whole Blood 254 mg/dL (75-99)
[2019-10-18] MEDS: HYDROmorphone 1 MG/ML 1 ML SYRINGE IVP PRN ×6 (03:47→22:19)
[2019-10-18] MEDS: DEXAMETHASONE SOD PHOSPHATE 4 MG/ML 1 ML VIAL IV SCH ×4 (05:37→23:15)
[2019-10-18] MEDS: lamoTRIgine 100 MG TAB PO SCH ×2 (07:42→19:57)
[2019-10-18] MEDS: FENOFIBRATE 160 MG TAB PO SCH (07:42)
[2019-10-18] MEDS: INSULIN ASPART (NovoLOG) 100 UNIT/ML VIAL SQ SCH ×4 (07:42→20:24)
[2019-10-18] MEDS: GABAPENTIN 300 MG CAP PO SCH ×2 (07:42→19:56)
[2019-10-18] MEDS: METOPROLOL TARTRATE 25 MG TAB PO SCH ×2 (07:43→19:56)
[2019-10-18] MEDS: FAMOTIDINE 20 MG TAB PO SCH (07:43)
[2019-10-18] MEDS: amLODIPine 5 MG TAB PO SCH (07:43)
[2019-10-18] MEDS: QUEtiapine 100 MG TAB PO SCH ×3 (07:44→19:57)
[2019-10-18] MEDS: DULoxetine HCL 30 MG CAPSULE.DR PO SCH ×2 (07:44→19:57)
[2019-10-18] MEDS: MULTIVITAMINS, THERA 1 EACH TAB PO SCH (07:44)
[2019-10-18] MEDS: NICOTINE 14MG/24HR PATCH TRANSDERM SCH (07:44)
[2019-10-18 07:45] LABS: Glucose,Whole Blood 244 mg/dL (75-99)
[2019-10-18 08:00] LABS: HCT 38.2 % (39.0-53.0); HGB 12.2 gm/dL (13.0-17.5); MCH 29.3 pg (25.0-35.0); MCV 91.3 fL (80.0-100.0); Mean Platelet Volume 7.5; Platelet Count 244 k/uL (150-450); RBC 4.18 m/uL (4.30-5.90); RDW 12.6 % (11.5-15.5); WBC 13.9 k/uL (3.8-10.6)
[2019-10-18 08:09] LABS: African American GFR (CKD) >90 (>60 ml/min/1.73 sqM); Anion Gap 6 mmol/L; Blood Urea Nitrogen 14 mg/dL (9-20); Calcium 9.5 mg/dL (8.4-10.2); Carbon Dioxide 29 mmol/L (22-30); Chloride 101 mmol/L (98-107); Glucose 200 mg/dL (74-99); Non-African American GFR(CKD) >90 (>60 ml/min/1.73 sqM); Phosphorus 2.8 mg/dL (2.5-4.5); Potassium 4.4 mmol/L (3.5-5.1); Sodium 136 mmol/L (137-145)
[2019-10-18] MEDS: LORazepam 0.5 MG TAB PO PRN ×2 (08:15→16:19)
--- NOTE | 2019-10-18 09:17 | P.CNOR ---
History of Present Illness - HPI Consult date: 10/18/19 Consult reason: other History of present illness: The patient is well known to our service. He underwent anterior cervical decompression with discectomy and corpectomy of C7 with open reduction internal fixation from C6 to T1 for his burst fracture of C7 1 week ago on 10/11/2019. He has been having pain in his left upper extremity with weakness which was new for him and his left upper extremity and underwent his surgery. Postoperatively he improved and his postoperative course was somewhat uneventful. He was making improvement with his left upper extremity and increasing his mobility. He was able to be discharged shortly after surgery and was making further progress at home until yesterday when he noticed some increased pain around his right shoulder blade area he is not having any weakness in his left upper extremity. He is not having new weakness in his arm. He says that he did have a little stumble but did not fall down. He was evaluated found to have potential nodules along his spine and pneumonia. He denied specific shortness of breath or cough or fevers or chills. He says that since he's been the hospital he has been making very good progress and the pain at the shoulder blade is almost gone. He feels his left arm strength is improving since his surgery. He feels his neck is doing well. He swallowing appropriately. He continues to wear his hard cervical collar. Review of Systems Anesthesia per HPI. He was having significant pain at the right side of his posterior chest along his shoulder blade. He denied anterior chest pain. Denies worsening in his strength in his upper extremities. He feels his left upper extremity is improving overall. Otherwise per HPI and medicine note. Past Medical History Past Medical History: Diabetes Mellitus, GERD/Reflux, Hypertension, Musculoskeletal Disorder (History of lumbar spine decompression and fusion. History lumbar discitis which was treated years ago. 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, pancreatitis History of Any Multi-Drug Resistant Organisms: MRSA Year Discovered:: 11/03/2008 MDRO Source:: spine Past Surgical History: Cholecystectomy Additional Past Surgical History / Comment(s): spinal fusion at L4 and L5, pancreatic surgery for pseudocyst w/stent Past Anesthesia/Blood Transfusion Reactions: No Reported Reaction Past Psychological History: Anxiety, Bipolar, Depression Smoking Status: Current every day smoker (1/2PPD) Past Alcohol Use History: None Reported Past Drug Use History: None Reported - Past Family History Mother Family Medical History: Hypertension Additional Family Medical History / Comment(s): Pt states mother had no health problems. Father Family Medical History: No Reported History Additional Family Medical History / Comment(s): pt stated his father is - had no medicals problems and of natural causes. Medications and Allergies Home Medications Medication Instructions Recorded Confirmed Type Fenofibrate Nanocrystallized 145 mg PO DAILY 08/07/13 10/17/19 History [Fenofibrate] Metoprolol Tartrate [Lopressor] 25 mg PO BID 08/07/13 10/17/19 History Montelukast [Singulair] 10 mg PO HS 08/07/13 10/17/19 History QUEtiapine FUMARATE [SEROquel] 300 mg PO HS 10/01/16 10/17/19 History lamoTRIgine 200 mg PO BID 10/01/16 10/17/19 History Multivitamins, Thera [Multivitamin 1 tab PO DAILY 10/22/16 10/17/19 History (formulary)] amLODIPine [Norvasc] 5 mg PO DAILY 10/22/16 10/17/19 History Ergocalciferol [Vitamin D2 50,000 unit PO SA 10/31/18 10/17/19 History (DRISDOL)] Insulin Glargine,Hum.rec.anlog 75 unit SQ 10/31/18 10/17/19 History [Basaglar Kwikpen U-100] Melatonin 10 mg PO 10/31/18 10/17/19 History Albuterol Sulfate [Ventolin HFA] 1 - 2 puff INHALATION RT-Q6H PRN 09/02/19 10/17/19 History DULoxetine HCL [Cymbalta] 30 mg PO BID 09/02/19 10/17/19 History Diclofenac Sodium Gel [Voltaren 2 gm TOPICAL QID PRN 09/02/19 10/17/19 History Gel] Dicyclomine [Bentyl] 20 mg PO Q6H PRN 09/02/19 10/17/19 History Famotidine 40 mg PO DAILY 09/02/19 10/17/19 History INSULIN ASPART (NovoLOG) [NovoLOG See Protocol SQ ACHS 09/02/19 10/17/19 History (formulary)] QUEtiapine [SEROquel] 100 mg PO BID@0800,1200 09/02/19 10/17/19 History traZODone HCL [Desyrel] 100 mg PO HS 09/02/19 10/17/19 History Meloxicam [Mobic] 7.5 mg PO BID PRN #0 09/04/19 10/17/19 Rx Pravastatin Sodium [Pravachol] 40 mg PO HS #30 tab 09/04/19 10/17/19 Rx Gabapentin [Neurontin] 300 mg PO BID 10/06/19 10/17/19 History HYDROcodone/APAP 7.5-325MG [Zachary 1 tab PO Q4H PRN 7 Days #42 tab 10/12/19 10/17/19 Rx 7.5-325] Allergies Allergy/AdvReac Type Severity Reaction Status Date / Time haloperidol [From Haldol] AdvReac Hallucinati Verified 10/17/19 12:39 ons haloperidol lactate AdvReac Hallucinati Verified 10/17/19 12:39 [From Haldol] ons Physical Examination Osteopathic Statement: *. No significant issues noted on an osteopathic structural exam other than those noted in the History and Physical/Consult. - C Spine: dermatomal strength & reflexes bilateral Shoulder strength: flexion: 4/5 (His neck incision sites clean dry and intact. There is no significant swelling there is no drainage. His neck is supple. He holds his head slightly side bent and rotated to the right. His left upper extremity motor function has improved since his surgery. He still has significant weakness in his left tricep with only 2 out of 5 strength at his triceps. 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 He is ambulatory in the room he is able lift his hands and arms up over his head which he was not having good luck with prior to surgery on the left side. He has full active and passive range motion of the right. He still has dexterity changes at his left hand.) Results - Labs Labs: Abnormal Lab Results - Last 24 Hours (Table) 10/17/19 10/17/19 10/17/19 Range/Units 06:33 11:47 16:57 WBC (3.8-10.6) k/uL RBC (4.30-5.90) m/uL Hgb (13.0-17.5) gm/dL Hct (39.0-53.0) % Sodium (137-145) mmol/L Creatinine (0.66-1.25) mg/dL Glucose (74-99) mg/dL POC Glucose (mg/dL) 285 H 272 H (75-99) mg/dL Total Protein (PEP) 6.1 L (6.2-8.2) g/dL 10/17/19 10/18/19 10/18/19 Range/Units 20:21 02:09 07:22 WBC 13.9 H (3.8-10.6) k/uL RBC 4.18 L (4.30-5.90) m/uL Hgb 12.2 L (13.0-17.5) gm/dL Hct 38.2 L (39.0-53.0) % Sodium (137-145) mmol/L Creatinine (0.66-1.25) mg/dL Glucose (74-99) mg/dL POC Glucose (mg/dL) 277 H 254 H (75-99) mg/dL Total Protein (PEP) (6.2-8.2) g/dL 10/18/19 10/18/19 Range/Units 07:22 07:32 WBC (3.8-10.6) k/uL RBC (4.30-5.90) m/uL Hgb (13.0-17.5) gm/dL Hct (39.0-53.0) % Sodium 136 L (137-145) mmol/L Creatinine 0.63 L (0.66-1.25) mg/dL Glucose 200 H (74-99) mg/dL POC Glucose (mg/dL) 244 H (75-99) mg/dL Total Protein (PEP) (6.2-8.2) g/dL H & H 10/17/19 10/18/19 Range/Units 06:33 07:22 Hgb 12.2 L 12.2 L (13.0-17.5) gm/dL Hct 39.0 38.2 L (39.0-53.0) % Coagulation 10/17/19 Range/Units 06:33 INR 0.9 (<1.2) Result Diagrams: 10/18/19 07:22 10/18/19 07:22 Assessment and Plan Assessment: Postoperative day #7 status post anterior cervical decompression with corpectomy of C7 and fusion C6 to T1 for open reduction internal fixation of C7 burst fracture Left upper extremity weakness, improving since surgery Pneumonia Right shoulder posterior pain improving Multiple medical issues Plan: Postoperative day #7 status post anterior cervical decompression with corpectomy of C7 and fusion C6 to T1 for open reduction internal fixation of C7 burst fracture Left upper extremity weakness, improving since surgery Pneumonia Right shoulder posterior pain improving Multiple medical issues The patient is currently admitted to the hospital with his pneumonia and right shoulder pain. His pain is significant improved since he's been in the hospital with further treatment of his pneumonia and that is encouraging. He'll continue medical management for this. He is not having new neurologic changes or decline in his extremities. He may be having some improvement in his extremity function since his surgery. I think that we should check a new x-ray of his cervical spine to reevaluate the position of the hardware given his stumble at home and his increased pain. His pain is improving and he has been using his hard cervical collar which she should continue to use at all times other than bathing. I tried to explain to him that the pain could come from the pneumonia however it could also be a shifting of the fixation at his cervical spine. He says his neck has not had to thin change in its overall feel and hopefully the hardware remains stable for his fixation. He is not having neurologic decline at this point.
[2019-10-18] MEDS: SODIUM CHLORIDE 0.9% 1,000 ML IV SCH ×3 (09:36→19:58)
[2019-10-18] MEDS: KETOROLAC 15 MG/ML 1 ML VIAL IVP PRN ×2 (10:06→16:19)
--- NOTE | 2019-10-18 10:46 | P.CONS ---
History of Present Illness - Reason for Consult Consult date: 10/18/19 Lymphadenopathy, lung nodules, possible bone lesions - History of Present Illness The patient is a 54-year-old white male with multiple medical issues, including long-standing history of heavy smoking as well as heavy alcohol use in the past. The patient recently underwent surgery on the lower cervical spine for trauma related injury. Post surgery his symptoms, specifically numbness and weakness in the left upper extremity had improved. The patient then developed new onset of pain just below the right shoulder blade possibly worsened with deep breathing. He therefore came into the emergency room. He had a CTA done which was negative for PE. However it did show bilateral small groundglass opacities suggestive of either nodules or pneumonia. In addition mediastinal lymph nodes are somewhat prominent with the largest in the subcarina and 2.1 cm. A few small scattered possible lytic lesions were also noted in the skeletal structures including T7. Consult was therefore placed for further evaluation and recommendations. The patient denied any prior history of malignancy. He denied any specific systemic symptoms. Review of Systems Constitutional: Reports fatigue Eyes: denies blurred vision, denies pain Ears: deny: decreased hearing, ear discharge, earache, tinnitus Ears, nose, mouth and throat: Denies headache, Denies sore throat Cardiovascular: Denies chest pain, Denies shortness of breath Respiratory: Denies cough Gastrointestinal: Denies abdominal pain, Denies diarrhea, Denies nausea, Denies vomiting Genitourinary: Reports as per HPI Musculoskeletal: Reports as per HPI, Reports neck pain, Reports neck stiffness Integumentary: Denies pruritus, Denies rash Neurological: Reports as per HPI, Reports numbness (Left upper extremity, improved), Reports weakness ((Extremity, improved) Psychiatric: Denies anxiety, Denies depression Endocrine: Reports fatigue, Denies weight change Hematologic/Lymphatic: Reports as per HPI Past Medical History Past Medical History: Diabetes Mellitus, GERD/Reflux, Hypertension, Musculoskeletal Disorder (History of lumbar spine decompression and fusion. History lumbar discitis which was treated years ago. 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, pancreatitis History of Any Multi-Drug Resistant Organisms: MRSA Year Discovered:: 11/03/2008 MDRO Source:: spine Past Surgical History: Cholecystectomy Additional Past Surgical History / Comment(s): spinal fusion at L4 and L5, pancreatic surgery for pseudocyst w/stent Past Anesthesia/Blood Transfusion Reactions: No Reported Reaction Past Psychological History: Anxiety, Bipolar, Depression Smoking Status: Current every day smoker (1/2PPD) Past Alcohol Use History: None Reported Past Drug Use History: None Reported - Past Family History Mother Family Medical History: Hypertension Additional Family Medical History / Comment(s): Pt states mother had no health problems. Father Family Medical History: No Reported History Additional Family Medical History / Comment(s): pt stated his father is d- had no medicals problems and of natural causes. Medications and Allergies Home Medications Medication Instructions Recorded Confirmed Type Fenofibrate Nanocrystallized 145 mg PO DAILY 08/07/13 10/17/19 History [Fenofibrate] Metoprolol Tartrate [Lopressor] 25 mg PO BID 08/07/13 10/17/19 History Montelukast [Singulair] 10 mg PO HS 08/07/13 10/17/19 History QUEtiapine FUMARATE [SEROquel] 300 mg PO HS 10/01/16 10/17/19 History lamoTRIgine 200 mg PO BID 10/01/16 10/17/19 History Multivitamins, Thera [Multivitamin 1 tab PO DAILY 10/22/16 10/17/19 History (formulary)] amLODIPine [Norvasc] 5 mg PO DAILY 10/22/16 10/17/19 History Ergocalciferol [Vitamin D2 50,000 unit PO SA 10/31/18 10/17/19 History (DRISDOL)] Insulin Glargine,Hum.rec.anlog 75 unit SQ HS 10/31/18 10/17/19 History [Basaglar Kwikpen U-100] Melatonin 10 mg PO HS 10/31/18 10/17/19 History Albuterol Sulfate [Ventolin HFA] 1 - 2 puff INHALATION RT-Q6H PRN 09/02/19 10/17/19 History DULoxetine HCL [Cymbalta] 30 mg PO BID 09/02/19 10/17/19 History Diclofenac Sodium Gel [Voltaren 2 gm TOPICAL QID PRN 09/02/19 10/17/19 History Gel] Dicyclomine [Bentyl] 20 mg PO Q6H PRN 09/02/19 10/17/19 History Famotidine 40 mg PO DAILY 09/02/19 10/17/19 History INSULIN ASPART (NovoLOG) [NovoLOG See Protocol SQ ACHS 09/02/19 10/17/19 History (formulary)] QUEtiapine [SEROquel] 100 mg PO BID@0800,1200 09/02/19 10/17/19 History traZODone HCL [Desyrel] 100 mg PO HS 09/02/19 10/17/19 History Meloxicam [Mobic] 7.5 mg PO BID PRN #0 09/04/19 10/17/19 Rx Pravastatin Sodium [Pravachol] 40 mg PO HS #30 tab 09/04/19 10/17/19 Rx Gabapentin [Neurontin] 300 mg PO BID 10/06/19 10/17/19 History HYDROcodone/APAP 7.5-325MG [Diana 1 tab PO Q4H PRN 7 Days #42 tab 10/12/19 10/17/19 Rx 7.5-325] Allergies Allergy/AdvReac Type Severity Reaction Status Date / Time haloperidol [From Haldol] AdvReac Hallucinati Verified 10/17/19 12:39 ons haloperidol lactate AdvReac Hallucinati Verified 10/17/19 12:39 [From Haldol] ons Physical Exam Vitals: Vital Signs Temp Pulse Pulse Resp BP Pulse Ox 10/18/19 07:00 98.2 F 93 16 166/94 92 L 10/18/19 00:36 98.1 F 91 18 122/78 91 L 10/17/19 20:00 98.7 F 109 H 20 161/96 91 L 10/17/19 16:00 104 H 16 10/17/19 15:00 98.1 F 104 H 16 183/97 94 L Intake and Output 10/17/19 10/18/19 10/18/19 22:59 06:59 14:59 Output Total 200 Balance -200 Output: Urine 200 Other: Voiding Method Toilet Toilet Toilet # Voids 1 2 - Constitutional General appearance: no acute distress - EENT Eyes: EOMI, PERRLA ENT: hearing grossly normal, normal oropharynx - Neck Neck: no lymphadenopathy, other (Incision right lower anterior neck, CDI) Thyroid: bilateral: normal size - Respiratory Respiratory: bilateral: CTA - Cardiovascular Rhythm: regular Heart sounds: normal: S1, S2 - Gastrointestinal General gastrointestinal: no organomegaly, soft, no tenderness - Integumentary Bruising on her right big toe - Neurologic Neurologic: CNII-XII intact - Musculoskeletal Musculoskeletal: generalized weakness, strength equal bilaterally - Psychiatric Psychiatric: A&O x's 3, appropriate affect Results CBC & Chem 7: 10/18/19 07:22 10/18/19 07:22 Labs: Abnormal Lab Results - Last 24 Hours (Table) 10/17/19 10/17/19 10/17/19 Range/Units 06:33 11:47 16:57 WBC (3.8-10.6) k/uL RBC (4.30-5.90) m/uL Hgb (13.0-17.5) gm/dL Hct (39.0-53.0) % Sodium (137-145) mmol/L Creatinine (0.66-1.25) mg/dL Glucose (74-99) mg/dL POC Glucose (mg/dL) 285 H 272 H (75-99) mg/dL Total Protein (PEP) 6.1 L (6.2-8.2) g/dL 10/17/19 10/18/19 10/18/19 Range/Units 20:21 02:09 07:22 WBC 13.9 H (3.8-10.6) k/uL RBC 4.18 L (4.30-5.90) m/uL Hgb 12.2 L (13.0-17.5) gm/dL Hct 38.2 L (39.0-53.0) % Sodium (137-145) mmol/L Creatinine (0.66-1.25) mg/dL Glucose (74-99) mg/dL POC Glucose (mg/dL) 277 H 254 H (75-99) mg/dL Total Protein (PEP) (6.2-8.2) g/dL 10/18/19 10/18/19 Range/Units 07:22 07:32 WBC (3.8-10.6) k/uL RBC (4.30-5.90) m/uL Hgb (13.0-17.5) gm/dL Hct (39.0-53.0) % Sodium 136 L (137-145) mmol/L Creatinine 0.63 L (0.66-1.25) mg/dL Glucose 200 H (74-99) mg/dL POC Glucose (mg/dL) 244 H (75-99) mg/dL Total Protein (PEP) (6.2-8.2) g/dL Chest x-ray: report reviewed CT scan - chest: report reviewed Assessment and Plan (1) Abnormal CT scan, chest Narrative/Plan: The patient's computed tomography scan was done because of his new-onset of right mid back pain, worse with inspiration. It was negative for PE. It did show bilateral lung nodules, as well as somewhat prominent mediastinal adenopat hy. These findings are suspicious but overall nonspecific. The bilateral lung nodules could potentially be related to inflammation but could also represent metastatic disease. Similarly lymph node enlargement in the size range can have both malignant as well as nonmalignant etiologies. The results and implications were discussed with him. At this time we will proceed with additional investigations. Based on the CT description the lung nodules given their size and appearance are probably not good target for biopsy. The mediastinal lymph nodes would likely be better targets either via bron choscopic approach from pulmonary medicine, or a mediastinoscopy with CTS. Current Visit: Yes Status: Acute Code(s): R93.89 - ABNORMAL FINDINGS ON DX IMAGING OF OTH BODY STRUCTURES SNOMED Code(s): 64554715826546638 (2) Bone lesion Narrative/Plan: The computed tomography scan mentions possible scattered small lytic bone lesions. These were not noted on x-ray. Again the radiologic appearance as described is very nonspecific. This sort of appearance can be noted with metastatic disease, but also with venous lakes and scattered demineralization. Therefore at this time it would be considered suspicious but not specific. - Metastatic disease from solid tumors would be very rarely purely lytic. Lytic malignant lesion such as myeloma is a consideration, but the patient has essentially normal hemoglobin, as well as creatinine and calcium. - For additional workup I will order protein electrophoresis studies, and PSA. I will also check bone scan to rule out mixed lytic/blastic lesions. I will also check the x-ray bone survey, though this is unlikely to add much value if it shows similar findings as noted on the computed tomography scan. If these are negative, targeted MRI of specific symptomatic areas can be considered if the patient continues to have persistent symptoms. Current Visit: Yes Status: Acute Code(s): M89.9 - DISORDER OF BONE, UNSPECIFIED SNOMED Code(s): 20404374 Plan: Defer to the admitting service and other consultants for management of his other medical problems
--- NOTE | 2019-10-18 12:04 | P.PN ---
Subjective Progress Note Date: 10/18/19 Principal diagnosis: Intractable right shoulder pain This is a very pleasant 54-year-old gentleman who follows with Dr. Wood as his primary care provider. He has a history of hypertension, obesity, diabetes mellitus, osteoarthritis, obstructive sleep apnea utilizing BiPAP, osteomyelitis and spine after fusion surgery, pancreatitis, bipolar disorder, chronic tobacco dependence. He had recently undergone cervical spine surgery with fusion of the 67 and C7-T1 and discharged home on 10/13/2019. He presented to the emergency room early this morning with complaints of right shoulder and scapula pain radiating to the front of his chest. Some right arm discomfort. No fever, no chills. No shortness of breath cough or congestion. CT angiogram revealed no evidence of acute pulmonary embolism. There was some multifocal areas of groundglass opacities that could reflect multifocal alveolar edema and/or developing acute infiltrates. Background mild to moderate emphysema. Nonspecific scattered bilateral subcentimeter nodules. We're consulted for the same. There was some scattered suspicious lytic lesions throughout the osseous structures. He is seen today in consultation on the regular medical floor. He is currently sitting up at the bedside. Awake and alert in no acute distress. He denies any pulmonary symptoms. No shortness of breath, cough or congestion. No fever chills or night sweats. He is having ongoing right scapula pain that radiates through to his anterior chest. White count 10.5. Hemoglobin 12.2. D- dimer 1.49. Sodium 1:30. Potassium 4.5. Creatinine 0.93. Glucose 606. ProBNP 138. Troponin negative 1. He was given ceftriaxone and azithromycin in the emergency room. 0.9#830 ML's per hour. He has been receiving Dilaudid, Toradol, Ativan. The patient is seen today 10/18/2019 in follow-up on the regular medical floor. He is currently sitting up in chair at the bedside. Awake and alert in no acute distress. His right shoulder pain is improved. Still no complaints of shortness of breath, cough or congestion. Maintaining O2 saturations in the 90s on room air. He's been afebrile. White count 13.9. Hemoglobin 12.2. Sodium 136. Potassium 4.4. Creatinine 0.63. Objective - Vital Signs Vital signs: Vital Signs Temp 98.2 F 10/18/19 07:00 Pulse 93 08/16/20 07:00 Resp 16 10/18/19 07:00 BP 166/94 10/18/19 07:00 Pulse Ox 92 L 10/18/19 07:00 Intake & Output 10/17/19 10/18/19 10/18/19 18:59 06:59 18:59 Output Total 200 Balance -200 Weight 108.862 kg Output: Urine 200 Other: Voiding Method Toilet Toilet # Voids 1 2 - Exam GENERAL EXAM: Alert, pleasant 54-year-old gentleman, on room air, uncomfortable in the right scapular region. HEAD: Normocephalic. EYES: Normal reaction of pupils, equal size. NOSE: Clear with pink turbinates. THROAT: No erythema or exudates. NECK: No masses, no JVD. CHEST: No chest wall deformity. LUNGS: Equal air entry with no crackles, wheeze, rhonchi or dullness. CVS: S1 and S2 normal with no audible murmur, regular rhythm. ABDOMEN: No hepatosplenomegaly, normal bowel sounds, no guarding or rigidity. SPINE: No scoliosis or deformity SKIN: Cervical incisions clean dry and approximate from recent surgery No rashes CENTRAL NERVOUS SYSTEM: No focal deficits, tone is normal in all 4 extremities. EXTREMITIES: There is no peripheral edema. No clubbing, no cyanosis. Peripheral pulses are intact. - Labs CBC & Chem 7: 10/18/19 07:22 10/18/19 07:22 Labs: Abnormal Lab Results - Last 24 Hours (Table) 10/17/19 10/17/19 10/17/19 Range/Units 06:33 11:47 16:57 WBC (3.8-10.6) k/uL RBC (4.30-5.90) m/uL Hgb (13.0-17.5) gm/dL Hct (39.0-53.0) % Sodium (137-145) mmol/L Creatinine (0.66-1.25) mg/dL Glucose (74-99) mg/dL POC Glucose (mg/dL) 285 H 272 H (75-99) mg/dL Total Protein (PEP) 6.1 L (6.2-8.2) g/dL 10/17/19 10/18/19 10/18/19 Range/Units 20:21 02:09 07:22 WBC 13.9 H (3.8-10.6) k/uL RBC 4.18 L (4.30-5.90) m/uL Hgb 12.2 L (13.0-17.5) gm/dL Hct 38.2 L (39.0-53.0) % Sodium (137-145) mmol/L Creatinine (0.66-1.25) mg/dL Glucose (74-99) mg/dL POC Glucose (mg/dL) 277 H 254 H (75-99) mg/dL Total Protein (PEP) (6.2-8.2) g/dL 10/18/19 10/18/19 Range/Units 07:22 07:32 WBC (3.8-10.6) k/uL RBC (4.30-5.90) m/uL Hgb (13.0-17.5) gm/dL Hct (39.0-53.0) % Sodium 136 L (137-145) mmol/L Creatinine 0.63 L (0.66-1.25) mg/dL Glucose 200 H (74-99) mg/dL POC Glucose (mg/dL) 244 H (75-99) mg/dL Total Protein (PEP) (6.2-8.2) g/dL Assessment and Plan Assessment: Significant pain and discomfort in the right shoulder, scapula, anterior chest and right arm of unclear etiology. Recent cervical neck surgery, discharge on 10/13/2019. Pulmonary embolism ruled out. Scattered suspicious lytic lesions throughout the osseous structures, differential includes a lytic metastatic disease versus multiple myeloma Multifocal areas of groundglass opacity with possible multifocal alveolar edema versus developing acute infiltrates without any pulmonary symptoms Mild to moderate underlying emphysematous changes with nonspecific scattered bilateral subcentimeter nodules Chronic and ongoing tobacco dependence Diabetes mellitus Hypertension Morbid obesity Obstructive sleep apnea utilizing BiPAP in the outpatient setting History of pancreatitis with pseudocyst and previous stent placement History of anxiety/depression/bipolar 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 Sifuentes Cleared for discharge from the pulmonary standpoint Nonspecific pulmonary nodules to be followed up in 4 months with computed tomography scan Educated regarding the importance of complete smoking cessation Protein electrophoresis to rule out multiple myeloma, oncology consulted I, the cosigning physician, performed a history & physical examination of the patient. Lungs sounds are clear. Maintaining good O2 saturations in the 90s on room air. I discussed the assessment and plan of care with my nurse practitioner, Isela Prasad. I attest to the above note as dictated by her.
[2019-10-18 12:09] LABS: Glucose,Whole Blood 201 mg/dL (75-99)
--- NOTE | 2019-10-18 14:58 | XR ---
EXAMINATION TYPE: XR bone survey complete DATE OF EXAM: 10/18/2019 COMPARISON: NONE HISTORY: Lytic lesions in the spine TECHNIQUE: 17 views FINDINGS: Calvarium is intact with normal vascular and suture markings. Sella turcica appears normal. There is right hip prosthesis. Pelvic ring is intact. There is posterior fusion surgery in the lower lumbar spine. There is multilevel spondylotic changes in the lower thoracic spine and the lumbar spi ne. I see no significant compression deformity. Left and right humerus appear intact. IMPRESSION: Negative bone survey. No evidence of osteolytic or osteoblastic disease.
--- NOTE | 2019-10-18 16:21 | NM ---
EXAMINATION TYPE: NM bone scan whole body DATE OF EXAM: 10/18/2019 COMPARISON: NONE HISTORY: Bone lesions. Possible metastatic disease. Delayed whole-body scanning was performed following the injection of 25.1 mCi Tc 99m MDP. Images acq uired 3 hours post injection. FINDINGS: There is focal significant increased uptake in the inferior right scapula related to a fracture. Ther e are multiple foci of increased uptake in the anterior left ribs involving the third fourth and fift h ribs as well as the lateral aspect of the left ninth rib. There is increased uptake in the lower ce rvical spine consistent with spine surgery. There is significant increased uptake at the proximal lef t tibia. This is consistent with a fracture. There is single focus of increased uptake in the left fr ontal bone. There is decreased activity at the right hip consistent with hip prosthesis. Chest CT scan from yesterday's reviewed and there are left-sided rib fractures and right scapular fra cture. IMPRESSION: Most of the foci of increased uptake seen are consistent with traumatic fractures. Uptake in the left frontal bone is nonspecific. Multiple foci of slight increased uptake in the thoracic spine are nons pecific. Overall I do not see a pattern of osseous metastatic disease.
[2019-10-18 17:37] LABS: Glucose,Whole Blood 251 mg/dL (75-99)
--- NOTE | 2019-10-18 18:45 | P.PN ---
Subjective Progress Note Date: 10/18/19 Patient was seen and examined. No acute events overnight. Patient continues to report cervical neck pain. Requesting better pain control. He denies any bladder or bowel incontinence. Complains of cramping in his bilateral upper extremities. He denies any chest pain, shortness breath or palpitations. No nausea or vomiting. No fever or chills. Objective - Vital Signs Vital signs: Vital Signs Temp 98.5 F 10/18/19 14:18 Pulse 106 H 10/18/19 14:18 Resp 16 10/18/19 14:18 BP 149/88 10/18/19 14:18 Pulse Ox 96 10/18/19 14:18 Intake & Output 10/17/19 10/18/19 10/18/19 18:59 06:59 18:59 Intake Total 440 Output Total 200 Balance -200 440 Weight 108.862 kg Intake: Oral 440 Output: Urine 200 Other: Voiding Method Toilet Toilet # Voids 1 2 3 - Exam General: [non toxic], [no distress], [appears at stated age] Derm: [warm], [dry] Head: [atraumatic], [normocephalic], [symmetric], cervical collar in place Eyes: [EOMI], [no lid lag], [anicteric sclera] Mouth: [no lip lesion], [mucus membranes moist] Cardiovascular: [S1S2 reg], [no murmur], [positive posterior tibial pulse bilateral], Lungs: [CTA bilateral], [no rhonchi, no rales] , [no accessory muscle use] Abdominal: [soft], [ nontender to palpation], [no guarding], [no appreciable organomegaly] Ext: [no gross muscle atrophy], [no edema], [no contractures] Neuro: [ CN II-XI grossly intact], [no focal neuro deficits] Psych: [Alert], [oriented], [appropriate affect] - Labs CBC & Chem 7: 10/18/19 07:22 10/18/19 07:22 Labs: Abnormal Lab Results - Last 24 Hours (Table) 10/17/19 10/18/19 10/18/19 Range/Units 20:21 02:09 07:22 WBC 13.9 H (3.8-10.6) k/uL RBC 4.18 L (4.30-5.90) m/uL Hgb 12.2 L (13.0-17.5) gm/dL Hct 38.2 L (39.0-53.0) % Sodium (137-145) mmol/L Creatinine (0.66-1.25) mg/dL Glucose (74-99) mg/dL POC Glucose (mg/dL) 277 H 254 H (75-99) mg/dL 10/18/19 10/18/19 10/18/19 Range/Units 07:22 07:32 11:52 WBC (3.8-10.6) k/uL RBC (4.30-5.90) m/uL Hgb (13.0-17.5) gm/dL Hct (39.0-53.0) % Sodium 136 L (137-145) mmol/L Creatinine 0.63 L (0.66-1.25) mg/dL Glucose 200 H (74-99) mg/dL POC Glucose (mg/dL) 244 H 201 H (75-99) mg/dL 10/18/19 Range/Units 17:12 WBC (3.8-10.6) k/uL RBC (4.30-5.90) m/uL Hgb (13.0-17.5) gm/dL Hct (39.0-53.0) % Sodium (137-145) mmol/L Creatinine (0.66-1.25) mg/dL Glucose (74-99) mg/dL POC Glucose (mg/dL) 251 H (75-99) mg/dL Microbiology - Last 24 Hours (Table) 10/17/19 10:55 Blood Culture - Preliminary Blood No Growth after 24 hours Assessment and Plan Assessment: Intractable right shoulder pain, lytic lesion - Pain medications -PT/OT evaluation -Consult orthopedic surgery Recent open reduction internal fixation a C7 burst fracture -Consult orthopedic surgery -Pain control, increase Dilaudid -Continue as hard cervical collar Multiple thoracic lesions in conjunction with multiple pulmonary nodules -Question if this could be related to recurrent malignancy, multiple myeloma, or prior osteomyelitis -Consult oncology -Pulmonary recommendations appreciated -Bone scan ordered, skeletal survey ordered, protein electrophoresis Diabetes mellitus type 2 with hyperglycemia -Continue with long-acting and sliding scale insulin -Follow blood sugars -Last A1c 11.3 7/2/20 Hyponatremia, suspect pseudohyponatremia secondary to hyperglycemia -IV fluids -Recheck in a.m. Tobacco abuse -Smoking cessation Hypertension -Resume home meds Obstructive sleep apnea -BiPAP use Bipolar disorder with zachary - resume home psych meds - if no improvement in AM consult psych
[2019-10-18] MEDS: traZODone HCL 100 MG TAB PO SCH (19:56)
[2019-10-18] MEDS: PRAVASTATIN SODIUM 40 MG TAB PO SCH (19:56)
[2019-10-18] MEDS: MELATONIN 5 MG TABLET PO SCH (19:57)
[2019-10-18] MEDS: MONTELUKAST 10 MG TAB PO SCH (19:57)
[2019-10-18] MEDS: LORazepam 2 MG/ML INJ IV PRN (19:58)
[2019-10-18 20:19] LABS: Glucose,Whole Blood 400 mg/dL (75-99)
[2019-10-18] MEDS: INSULIN DETEMIR (LEVEMIR) 100 UNIT/ML SYR SQ SCH (20:24)
[2019-10-19] MEDS: HYDROmorphone 1 MG/ML 1 ML SYRINGE IVP PRN ×10 (00:23→23:18)
[2019-10-19] MEDS: LORazepam 2 MG/ML INJ IV PRN ×5 (03:41→21:30)
[2019-10-19] MEDS: DEXAMETHASONE SOD PHOSPHATE 4 MG/ML 1 ML VIAL IV SCH ×4 (05:21→23:55)
[2019-10-19] MEDS: SODIUM CHLORIDE 0.9% 1,000 ML IV SCH ×3 (05:21→23:56)
[2019-10-19 07:06] LABS: Glucose,Whole Blood 320 mg/dL (75-99)
[2019-10-19] MEDS: INSULIN ASPART (NovoLOG) 100 UNIT/ML VIAL SQ SCH ×4 (08:06→22:24)
[2019-10-19] MEDS: MULTIVITAMINS, THERA 1 EACH TAB PO SCH (08:07)
[2019-10-19] MEDS: FENOFIBRATE 160 MG TAB PO SCH (08:07)
[2019-10-19] MEDS: FAMOTIDINE 20 MG TAB PO SCH (08:07)
[2019-10-19] MEDS: lamoTRIgine 100 MG TAB PO SCH ×2 (08:07→20:44)
[2019-10-19] MEDS: GABAPENTIN 300 MG CAP PO SCH ×2 (08:07→20:44)
[2019-10-19] MEDS: METOPROLOL TARTRATE 25 MG TAB PO SCH ×2 (08:07→20:44)
[2019-10-19] MEDS: amLODIPine 5 MG TAB PO SCH (08:08)
[2019-10-19] MEDS: NICOTINE 14MG/24HR PATCH TRANSDERM SCH (08:08)
[2019-10-19] MEDS: DULoxetine HCL 30 MG CAPSULE.DR PO SCH ×2 (08:13→20:44)
[2019-10-19] MEDS: QUEtiapine 100 MG TAB PO SCH ×3 (08:13→21:13)
[2019-10-19] MEDS: HYDROcodone/APAP 7.5-325MG 1 EACH TAB PO PRN ×3 (09:14→19:32)
[2019-10-19] MEDS: LORazepam 0.5 MG TAB PO PRN (09:14)
--- NOTE | 2019-10-19 10:20 | P.PN ---
Progress Note - Text Progress Note Date: 10/19/19 Patient is seen and examined today at bedside. He is ambulatory in his room. He is a bit agitated and upset today because he had to get up and start moving around for the students observation. We were able to settle him down appropriately. He is answering questions and follow commands for us. He says that whenever he gets up he has increased pain toward his right shoulder and into his right arm. The pain is around his scapula and his posterior right arm. He says this pain was not there prior to his surgery. And not occur immediately after surgery. He says the pain started on that right side. Days ago when he presented to the hospital. Says the pain in the scapula is improved but he still has irritating toward his right triceps. He says that when he fell a month ago he feels that he did hit his shoulders his knee and his head and saw stars. He did not report to us issues in his right lower extremity around his knee. He says he had a brace for that at the time. He has been ambulatory without any assistance and without any limp. On exam he is agitated today but we're able, and down. He is following commands appropriately he is conversant. His neck incision is clean and dry. He is able to turn his head gently from side to side and up and down without any significant pain. At his scapula there is some mild tenderness inferiorly but there is no erythema there is no skin and swelling there is no crepitus. 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 There is no erythema there is no new swelling or edema. He admits to some soreness around his proximal tibia. He has some skin changes at his toes. At his upper extremities he is actually having good improvement in his range of motion and some of the strength of the left. He saw significant weakness in his triceps on the left. His triceps on the right has adequate strength. His bone survey including neck x-rays are reviewed. The hardware at C6 through T1 is intact. It appears to be adequately placed within the vertebral bodies just off center on the right. I do not see any obvious loosening or any hardware failure Bone scan shows uptake at his inferior pole of the scapula as well as his proximal tibia on the right. The bone scan report itself states that it is the left proximal tibia but it appears to be the right proximal tibia and we will obtain new dedicated images of his right scapula and his right tibia and right knee. There is some uptake around his ribs as well. They state that is not a metastatic pattern. He also evidence of some uptake along his cervical spine which is consistent for the surgery Assessment and plan 12 days postop status post anterior cervical decompression and fusion with open reduction internal fixation of C7 burst fracture and fusion from C6 to T1 Right scapular pain and right upper extremity pain Increased uptake on bone scan at the right scapula and right proximal tibia Multiple areas uptake at the ribs consistent with fracture I think that we need to obtain further imaging of his right knee and proximal tibia on the right as well as his right scapula to further evaluate the bony makeup and evaluate for fracture. The scapular pain on the right seems to just started in the past couple of days. He had not complained of leg pain or knee pain to me in the past regarding his right small tibia but with the positive bone scan we need to obtain further imaging to evaluate for possible fracture. In regards to his cervical spine, his left upper extremity has had continued gradual improvement of his neurologic function and is happy with the result. His neck incision sites appears to be healing well and the hardware appears to b e stable. Physical to determine if this right upper extremity symptoms is radicular in nature but is not having acute neurologic decline on the right. We'll continue to monitor this closely and he should continue his hard cervical collar. He continues to have his treatment for his pneumonia. He is continuing to be managed by medicine service. We will follow closely along with you
[2019-10-19] MEDS: KETOROLAC 15 MG/ML 1 ML VIAL IVP PRN ×2 (10:58→20:44)
[2019-10-19 11:39] LABS: Glucose,Whole Blood 224 mg/dL (75-99)
--- NOTE | 2019-10-19 12:31 | P.PN ---
Subjective Progress Note Date: 10/19/19 Principal diagnosis: Intractable right shoulder pain This is a very pleasant 54-year-old gentleman who follows with Dr. Wood as his primary care provider. He has a history of hypertension, obesity, diabetes mellitus, osteoarthritis, obstructive sleep apnea utilizing BiPAP, osteomyelitis and spine after fusion surgery, pancreatitis, bipolar disorder, chronic tobacco dependence. He had recently undergone cervical spine surgery with fusion of the 67 and C7-T1 and discharged home on 10/13/2019. He presented to the emergency room early this morning with complaints of right shoulder and scapula pain radiating to the front of his chest. Some right arm discomfort. No fever, no chills. No shortness of breath cough or congestion. CT angiogram revealed no evidence of acute pulmonary embolism. There was some multifocal areas of groundglass opacities that could reflect multifocal alveolar edema and/or developing acute infiltrates. Background mild to moderate emphysema. Nonspecific scattered bilateral subcentimeter nodules. We're consulted for the same. There was some scattered suspicious lytic lesions throughout the osseous structures. He is seen today in consultation on the regular medical floor. He is currently sitting up at the bedside. Awake and alert in no acute distress. He denies any pulmonary symptoms. No shortness of breath, cough or congestion. No fever chills or night sweats. He is having ongoing right scapula pain that radiates through to his anterior chest. White count 10.5. Hemoglobin 12.2. D- dimer 1.49. Sodium 1:30. Potassium 4.5. Creatinine 0.93. Glucose 606. ProBNP 138. Troponin negative 1. He was given ceftriaxone and azithromycin in the emergency room. 0.9#830 ML's per hour. He has been receiving Dilaudid, T oradol, Ativan. The patient is seen today 10/18/2019 in follow-up on the regular medical floor. He is currently sitting up in chair at the bedside. Awake and alert in no acute distress. His right shoulder pain is improved. Still no complaints of shortness of breath, cough or congestion. Maintaining O2 saturations in the 90s on room air. He's been afebrile. White count 13.9. Hemoglobin 12.2. Sodium 136. Potassium 4.4. Creatinine 0.63. On 10/19/2019 patient seen in follow-up on general medical surgical floor. He is awake and alert, currently on 2 L of oxygen the pulse ox of 97%, he states he still having a lot of pain in his shoulder. But denies any difficulty breathing. Breathing seems to be comfortable. He has his CPAP at the bedside, he has been using it at bedtime. No fever or chills, hemodynamically stable, no complaint of chest pain. Denies any cough or congestion. Vital signs have been stable. Has had no acute events overnight. He is receiving pain medications for the right shoulder pain, and PT and OT services have been consulted. Objective - Vital Signs Vital signs: Vital Signs Temp 97.3 F L 10/19/19 07:00 Pulse 80 10/19/19 07:00 Resp 18 10/19/19 07:00 BP 160/102 10/19/19 07:00 Pulse Ox 97 10/19/19 07:00 Intake & Output 10/18/19 10/19/19 10/19/19 18:59 06:59 18:59 Intake Total 440 390 Balance 440 390 Intake: Intake, IV Titration 390 Amount Sodium Chloride 0.9% 1, 390 000 ml @ 130 mls/hr IV . [id number] [facility] Rx#:[id number] Oral 440 Other: Voiding Method Toilet Toilet Toilet # Voids 3 3 - Exam GENERAL EXAM: Alert, very pleasant, white male, 2 L of oxygen, resting comfortably in bed, with a pulse ox of 97%, comfortable in no apparent distress. HEAD: Normocephalic/atraumatic. EYES: Normal reaction of pupils, equal size. Conjunctiva pink, sclera white. NOSE: Clear with pink turbinates. THROAT: No erythema or exudates. NECK: No masses, no JVD, no thyroid enlargement, no adenopathy. CHEST: No chest wall deformity. Symmetrical expansion. LUNGS: Equal air entry with no crackles, wheeze, rhonchi or dullness. CVS: Regular rate and rhythm, normal S1 and S2, no gallops, no murmurs, no rubs ABDOMEN: Soft, nontender. No hepatosplenomegaly, normal bowel sounds, no guarding or rigidity. EXTREMITIES: No clubbing, no edema, no cyanosis, 2+ pulses and upper and lower extremities. MUSCULOSKELETAL: Muscle strength and tone normal. SPINE: No scoliosis or deformity SKIN: No rashes CENTRAL NERVOUS SYSTEM: Alert and oriented -3. No focal deficits, tone is normal in all 4 extremities. PSYCHIATRIC: Alert and oriented -3. Appropriate affect. Intact judgment and insight. - Labs CBC & Chem 7: 10/18/19 07:22 10/18/19 07:22 Labs: Abnormal Lab Results - Last 24 Hours (Table) 10/18/19 10/18/19 10/19/19 Range/Units 17:12 20:18 07:04 POC Glucose (mg/dL) 251 H 400 H 320 H (75-99) mg/dL 10/19/19 Range/Units 11:36 POC Glucose (mg/dL) 224 H (75-99) mg/dL Microbiology - Last 24 Hours (Table) 10/17/19 10:55 Blood Culture - Preliminary Blood No Growth after 24 hours Assessment and Plan Plan: Assessment: Significant pain and discomfort in the right shoulder, scapula, anterior chest and right arm of unclear etiology. Recent cervical neck surgery, discharge on 10/13/2019. Pulmonary embolism ruled out. Scattered suspicious lytic lesions throughout the osseous structures, differential includes a lytic metastatic disease versus multiple myeloma Multifocal areas of groundglass opacity with possible multifocal alveolar edema versus developing acute infiltrates without any pulmonary symptoms Mild to moderate underlying emphysematous changes with nonspecific scattered bilateral subcentimeter nodules Chronic and ongoing tobacco dependence Diabetes mellitus Hypertension Morbid obesity Obstructive sleep apnea utilizing BiPAP in the outpatient setting History of pancreatitis with pseudocyst and previous stent placement History of anxiety/depression/bipolar 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 I performed a history & physical examination of the patient and discussed their management with my nurse practitioner, Aurelia Arenas. I reviewed the nurse practitioner's note and agree with the documented findings and plan of care. Lung sounds are positive for diminished breath sounds. The findings and the impression was discussed with the patient. I attest to the documentation by the nurse practitioner. Time with Patient: Less than 30
[2019-10-19 13:06] LABS: Albumin 3.24 g/dL (3.80-4.90); Gamma Globulin 0.64 g/dL (0.70-1.50)
--- NOTE | 2019-10-19 13:15 | XR ---
EXAMINATION TYPE: XR knee complete 3 views RT, XR tibia fibula 2 views RT DATE OF EXAM: 10/19/2019 COMPARISON: 09/03/2019 HISTORY: 54-year-old male with positive bone scan proximal tibia FINDINGS: KNEE: There is progressively increasing heterogeneous density across the proximal tibial metaphysis coursin g obliquely downward and posteriorly on the lateral view. Stable horizontal lucency involving the ant erior cortex just below the fragmented tibial tuberosity. Extensive fragmentation at the tibial tuber osity is chronic with associated soft tissue thickening compatible with old atherosclerotic disease. No sizable joint effusion. Vascular calcifications behind the knee. TIBIA/FIBULA: No acute fracture of the more mid to distal tibia or fibula. Ankle joint appears grossly intact. IMPRESSION (knee and tibia/fibula): 1. Progressive abnormal sclerosis along the proximal tibial metaphysis and interval development of randolph btle periostitis along the anterolateral cortex. Unable to exclude underlying osseous metastasis, pos sible pathologic fracture given anterior cortical lucency on the lateral view. 2. 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 3. Workup for potential underlying primary neoplasm in the patient.
--- NOTE | 2019-10-19 13:18 | XR ---
EXAMINATION TYPE: XR scapula RT DATE OF EXAM: 10/19/2019 COMPARISON: Correlation bone scan 10/18/2019 HISTORY: 54-year-old male positive bone scan at right scapula, pain TECHNIQUE: 2 views FINDINGS: There is a transverse fracture at the inferior tip of the scapula with 1.5 cm of posterior displaceme nt and mild periosteal callus formation. IMPRESSION: Subacute fracture inferior tip of the scapula with 1.5 cm of posterior displacement. This may represe nt a pathologic fracture given the osseous changes described in the proximal tibia of the same day, o verall bone scan findings of 10/18/2019, and also the osseous findings seen on the PE CT of 10/17/2019.
--- NOTE | 2019-10-19 17:01 | P.PN ---
Subjective Progress Note Date: 10/19/19 Patient was seen and examined. No acute events overnight. Patient continues to report cervical neck pain. Complains of right-sided scapular pain. Requesting better pain control. He denies any bladder or bowel incontinence. Complains of cramping in his bilateral upper extremities. He denies any chest pain, shortness breath or palpitations. No nausea or vomiting. No fever or chills. Objective - Vital Signs Vital signs: Vital Signs Temp 98.5 F 10/19/19 14:49 Pulse 89 10/19/19 14:49 Resp 20 10/19/19 14:49 BP 146/89 10/19/19 14:49 Pulse Ox 97 10/19/19 14:49 Intake & Output 10/18/19 10/19/19 10/19/19 18:59 06:59 18:59 Intake Total 440 390 Balance 440 390 Intake: Intake, IV Titration 390 Amount Sodium Chloride 0.9% 1, 390 000 ml @ 130 mls/hr IV . Q7H42M [facility] Rx#:[id number] Oral 440 Other: Voiding Method Toilet Toilet Toilet # Voids 3 3 2 - Exam General: [non toxic], [no distress], [appears at stated age] Derm: [warm], [dry] Head: [atraumatic], [normocephalic], [symmetric], cervical collar in place with midline scar Eyes: [EOMI], [no lid lag], [anicteric sclera] Mouth: [no lip lesion], [mucus membranes moist] Cardiovascular: [S1S2 reg], [no murmur], [positive DP pulse bilateral], Lungs: [CTA bilateral], [no rhonchi, no rales] , [no accessory muscle use] Abdominal: [soft], [ nontender to palpation], [no guarding], [no appreciable organomegaly] Ext: [no gross muscle atrophy], [no edema], [no contractures], tenderness to palpation over the medial scapula Neuro: [no focal neuro deficits] Psych: [Alert], [oriented], [appropriate affect] - Labs CBC & Chem 7: 10/18/19 07:22 10/18/19 07:22 Labs: Abnormal Lab Results - Last 24 Hours (Table) 08/10/18/19 10/18/19 Range/Units 06:33 17:12 20:18 POC Glucose (mg/dL) 251 H 400 H (75-99) mg/dL Albumin (PEP) 3.24 L (3.80-4.90) g/dL Skihm-3-Tyrnqjauu 0.49 H (0.10-0.40) g/dL Gamma Globulins 0.64 L (0.70-1.50) g/dL 10/19/19 10/19/19 Range/Units 07:04 11:36 POC Glucose (mg/dL) 320 H 224 H (75-99) mg/dL Albumin (PEP) (3.80-4.90) g/dL Wjhst-7-Rqfhovvis (0.10-0.40) g/dL Gamma Globulins (0.70-1.50) g/dL Microbiology - Last 24 Hours (Table) 10/17/19 10:55 Blood Culture - Preliminary Blood No Growth after 48 hours Assessment and Plan Assessment: Intractable right shoulder pain, scapular fracture - Pain medications -Plans for MRI of the scapula and tibial/fibula by orthopedic surgery -PT/OT evaluation -Consult orthopedic surgery Leukocytosis -Likely related to steroid therapy no signs of infection we'll continue to monitor Recent open reduction internal fixation a C7 burst fracture -Consult orthopedic surgery -Pain control, increase Dilaudid and add baclofen as needed -Continue as hard cervical collar Multiple thoracic lesions in conjunction with multiple pulmonary nodules -Question if this could be related to recurrent malignancy, multiple myeloma, or prior osteomyelitis -Consult oncology -Pulmonary recommendations appreciated -Bone scan and skeletal survey were is not suspicious for metastatic bone cancer -PSA added by oncology -Follow protein electrophoresis Diabetes mellitus type 2 with hyperglycemia -Continue with long-acting and sliding scale insulin -Follow blood sugars -Last A1c 11.3 09/03/19 Hyponatremia, suspect pseudohyponatremia secondary to hyperglycemia -IV fluids -Recheck in AM Tobacco abuse -Smoking cessation Hypertension -Resume home meds Obstructive sleep apnea -BiPAP use Bipolar disorder with zachary - resume home psych meds - if no improvement in AM consult psych [Patient needs better pain control. MRI scapula and tibial/fibula pending. Orthopedic surgery on board. Likely DC in 1-2 days.]
[2019-10-19 17:05] LABS: Glucose,Whole Blood 319 mg/dL (75-99)
[2019-10-19] MEDS: BACLOFEN 10 MG TAB PO PRN (17:06)
[2019-10-19 18:59] LABS: Glucose,Whole Blood 320 mg/dL (75-99)
--- NOTE | 2019-10-19 19:36 | MR ---
EXAMINATION TYPE: MR scapula RT wo con DATE OF EXAM: 10/19/2019 COMPARISON: None HISTORY: Fx of rt scapula seen in Xray T1 axial and coronal images were obtained of the right scapula and shoulder. There is T2 axial images also. Exam limited somewhat by motion. There is 1 cm degenerative cyst in the greater tuberosity of the humerus. The glenohumeral joint is a natomic. Body of the scapula is intact. There is some deformity of the inferior scapula that is not w ell demonstrated related to a nondisplaced fracture. There is no significant bone edema. There is no soft tissue fluid collection. Unfortunately the T2 images are not satisfactory for evaluation of the soft tissues and fluid. There is no evidence of a soft tissue mass. Muscles around the scapula appear intact. IMPRESSION: Mild deformity inferior scapular relate to a fracture without evidence of fluid or edema. This is con sistent with an old fracture. The CT scan of 10/17/2019 reviewed and there is osteosclerosis on both s ides of the inferior scapula fracture consistent with old ununited fracture. I do not see a pattern o f metastatic disease.
[2019-10-19] MEDS: MELATONIN 5 MG TABLET PO SCH (20:44)
[2019-10-19] MEDS: traZODone HCL 100 MG TAB PO SCH (20:44)
[2019-10-19] MEDS: MONTELUKAST 10 MG TAB PO SCH (20:44)
[2019-10-19] MEDS: PRAVASTATIN SODIUM 40 MG TAB PO SCH (21:13)
--- NOTE | 2019-10-19 22:10 | P.PN ---
Subjective Progress Note Date: 10/19/19 Principal diagnosis: recurrent fractures Bone scan reviewed and no ltic lesions identified, multiple fractures, patient states he is always hurting himself? No monoclonal proteins identified. Objective - Vital Signs Vital signs: Vital Signs Temp 98.5 F 10/19/19 14:49 Pulse 89 10/19/19 14:49 Resp 20 10/19/19 14:49 BP 146/89 10/19/19 14:49 Pulse Ox 97 10/19/19 14:49 Intake & Output 10/18/19 10/19/19 10/19/19 18:59 06:59 18:59 Intake Total 440 390 Balance 440 390 Intake: Intake, IV Titration 390 Amount Sodium Chloride 0.9% 1, 390 000 ml @ 130 mls/hr IV . Q7H42M [facility] Rx#:[id number] Oral 440 Other: Voiding Method Toilet Toilet Toilet # Voids 3 3 2 - Exam - Constitutional General appearance: no acute distress - EENT Eyes: EOMI, PERRLA ENT: hearing grossly normal, normal oropharynx - Neck Neck: no lymphadenopathy, other (Incision right lower anterior neck, CDI) Thyroid: bilateral: normal size - Respiratory Respiratory: bilateral: CTA - Cardiovascular Rhythm: regular Heart sounds: normal: S1, S2 - Gastrointestinal General gastrointestinal: no organomegaly, soft, no tenderness - Integumentary Bruising on her right big toe - Neurologic Neurologic: CNII-XII intact - Musculoskeletal Musculoskeletal: generalized weakness, strength equal bilaterally - Psychiatric Psychiatric: A&O x's 3, appropriate affect Very anxious - Labs CBC & Chem 7: 10/18/19 07:22 10/18/19 07:22 Labs: Abnormal Lab Results - Last 24 Hours (Table) 10/17/19 10/18/19 10/18/19 Range/Units 06:33 17:12 20:18 POC Glucose (mg/dL) 251 H 400 H (75-99) mg/dL Albumin (PEP) 3.24 L (3.80-4.90) g/dL Kpvet-9-Efjwmojzi 0.49 H (0.10-0.40) g/dL Gamma Globulins 0.64 L (0.70-1.50) g/dL 10/19/19 10/19/19 Range/Units 07:04 11:36 POC Glucose (mg/dL) 320 H 224 H (75-99) mg/dL Albumin (PEP) (3.80-4.90) g/dL Yoakk-1-Lctxdcifs (0.10-0.40) g/dL Gamma Globulins (0.70-1.50) g/dL Microbiology - Last 24 Hours (Table) 10/17/19 10:55 Blood Culture - Preliminary Blood No Growth after 48 hours Assessment and Plan Plan: Chest x-ray: report reviewed CT scan - chest: report reviewed Assessment and Plan: Abnormal CT scan, chest: - Negative Pulmonary Embolism - Bilateral lung nodules which appear non-specific (inflammation versus metastatic disease) with somewhat prominent mediastinal adenopathy. - Defer tissue biopsy of mediastinal nodes to pulmonary medicine. Possibly via bronchoscopy Bone lesion - The computed tomography scan mentions possible scattered small lytic bone lesions. - Bone scan negative for lytic lesions - No monoclonal proteins seen - PSA pending Plan: Defer to the admitting service and other consultants for management of his other medic
[2019-10-19 22:21] LABS: Glucose,Whole Blood 386 mg/dL (75-99)
[2019-10-19] MEDS: INSULIN DETEMIR (LEVEMIR) 100 UNIT/ML SYR SQ SCH (22:25)
[2019-10-20] MEDS: HYDROmorphone 1 MG/ML 1 ML SYRINGE IVP PRN ×8 (01:26→21:59)
[2019-10-20] MEDS: LORazepam 2 MG/ML INJ IV PRN ×5 (01:27→20:54)
[2019-10-20 01:50] LABS: Glucose,Whole Blood 199 mg/dL (75-99)
[2019-10-20] MEDS: BACLOFEN 10 MG TAB PO PRN ×3 (02:31→20:52)
[2019-10-20] MEDS: HYDROcodone/APAP 7.5-325MG 1 EACH TAB PO PRN ×5 (02:31→21:59)
[2019-10-20] MEDS: DEXAMETHASONE SOD PHOSPHATE 4 MG/ML 1 ML VIAL IV SCH ×3 (05:25→17:32)
[2019-10-20 07:02] LABS: Glucose,Whole Blood 375 mg/dL (75-99)
[2019-10-20] MEDS: NICOTINE 14MG/24HR PATCH TRANSDERM SCH (07:23)
[2019-10-20] MEDS: FAMOTIDINE 20 MG TAB PO SCH (07:24)
[2019-10-20] MEDS: FENOFIBRATE 160 MG TAB PO SCH (07:24)
[2019-10-20] MEDS: QUEtiapine 100 MG TAB PO SCH ×3 (07:24→20:53)
[2019-10-20] MEDS: DULoxetine HCL 30 MG CAPSULE.DR PO SCH ×2 (07:24→20:52)
[2019-10-20] MEDS: lamoTRIgine 100 MG TAB PO SCH ×2 (07:24→20:52)
[2019-10-20] MEDS: amLODIPine 5 MG TAB PO SCH (07:25)
[2019-10-20] MEDS: MULTIVITAMINS, THERA 1 EACH TAB PO SCH (07:25)
[2019-10-20] MEDS: METOPROLOL TARTRATE 25 MG TAB PO SCH ×2 (07:25→20:52)
[2019-10-20] MEDS: GABAPENTIN 300 MG CAP PO SCH ×2 (07:26→20:52)
[2019-10-20] MEDS: KETOROLAC 15 MG/ML 1 ML VIAL IVP PRN (07:31)
--- NOTE | 2019-10-20 07:32 | P.PN ---
Subjective Progress Note Date: 10/20/19 Principal diagnosis: Shoulder pain Physical complaint is shoulder pain, no chest pain, no abdominal pain. He describes the pain as moderate. Objective - Vital Signs Vital signs: Vital Signs Temp 97.9 F 10/20/19 05:00 Pulse 101 H 10/20/19 05:00 Resp 20 10/20/19 05:00 BP 146/94 10/20/19 00:22 Pulse Ox 92 L 10/20/19 05:00 Intake & Output 10/19/19 10/20/19 10/20/19 18:59 06:59 18:59 Intake Total 2700 Balance 2700 Intake: Intake, IV Titration 1070 Amount Sodium Chloride 0.9% 1, 1070 000 ml @ 130 mls/hr IV . Q7H42M [facility] Rx#:[id number] Oral 1630 Other: Voiding Method Toilet Toilet # Voids 2 2 - Exam General: [non toxic], [no distress], [appears at stated age] Derm: [warm], [dry] Head: [atraumatic], [normocephalic], [symmetric], cervical collar in place with midline scar Eyes: [EOMI], [no lid lag], [anicteric sclera] Mouth: [no lip lesion], [mucus membranes moist] Cardiovascular: [S1S2 reg], [no murmur], Lungs: [CTA bilateral], [no rhonchi, no rales] , [no accessory muscle use] Abdominal: [soft], [ nontender to palpation], [no guarding], Ext: [no gross muscle atrophy], [no edema], [no contractures], tenderness to palpation over the medial scapula Neuro: [no focal neuro deficits] Psych: [Alert], [oriented] - Labs CBC & Chem 7: 10/18/19 07:22 10/18/19 07:22 Labs: Abnormal Lab Results - Last 24 Hours (Table) 10/17/19 10/19/19 10/19/19 Range/Units 06:33 11:36 17:03 POC Glucose (mg/dL) 224 H 319 H (75-99) mg/dL Albumin (PEP) 3.24 L (3.80-4.90) g/dL Ytrhr-7-Nehuctsln 0.49 H (0.10-0.40) g/dL Gamma Globulins 0.64 L (0.70-1.50) g/dL 10/19/19 10/19/19 10/20/19 Range/Units 18:49 22:10 01:38 POC Glucose (mg/dL) 320 H 386 H 199 H (75-99) mg/dL Albumin (PEP) (3.80-4.90) g/dL Zmvxg-4-Lbnjwlkiq (0.10-0.40) g/dL Gamma Globulins (0.70-1.50) g/dL 10/20/19 Range/Units 07:00 POC Glucose (mg/dL) 375 H (75-99) mg/dL Albumin (PEP) (3.80-4.90) g/dL Puodp-7-Avrgymcyr (0.10-0.40) g/dL Gamma Globulins (0.70-1.50) g/dL Microbiology - Last 24 Hours (Table) 10/17/19 10:55 Blood Culture - Preliminary Blood No Growth after 48 hours Assessment and Plan Plan: Intractable right shoulder pain, scapular fracture - Pain medications -MRI of the scapula and tibial/fibula no acute fracture, consistent with old fracture right shoulder. -PT/OT evaluation, input appreciated -Consult orthopedic surgery appreciated Leukocytosis -Likely related to steroid therapy no signs of infection , monitor pending the Recent open reduction internal fixation a C7 burst fracture -Consult orthopedic surgery -Pain control, increase Dilaudid and baclofen as needed -Continue as hard cervical collar Multiple thoracic lesions in conjunction with multiple pulmonary nodules -Question if this could be related to recurrent malignancy, multiple myeloma, or prior osteomyelitis -Consult oncology -Pulmonary recommendations appreciated -Bone scan and skeletal survey were is not suspicious for metastatic bone cancer -PSA added by oncology -Follow protein electrophoresis Diabetes mellitus type 2 with hyperglycemia -Continue with long-acting and sliding scale insulin -Follow blood sugars -Last A1c 11.3 09/03/19 Hyponatremia, suspect pseudohyponatremia secondary to hyperglycemia -IV fluids Tobacco abuse -Smoking cessation Hypertension -Resume home meds Obstructive sleep apnea -BiPAP use Bipolar disorder with zachary -Continue home psych meds -Consider consulting psych Disposition: Home likely tomorrow once pain is better controlled.
[2019-10-20] MEDS: INSULIN ASPART (NovoLOG) 100 UNIT/ML VIAL SQ SCH ×4 (07:35→20:53)
--- NOTE | 2019-10-20 10:03 | P.PN ---
Subjective Progress Note Date: 10/20/19 Principal diagnosis: Intractable right shoulder pain This is a very pleasant 54-year-old gentleman who follows with Dr. Wood as his primary care provider. He has a history of hypertension, obesity, diabetes mellitus, osteoarthritis, obstructive sleep apnea utilizing BiPAP, osteomyelitis and spine after fusion surgery, pancreatitis, bipolar disorder, chronic tobacco dependence. He had recently undergone cervical spine surgery with fusion of the 68 and C7-T1 and discharged home on 10/13/2019. He presented to the emergency room early this morning with complaints of right shoulder and scapula pain radiating to the front of his chest. Some right arm discomfort. No fever, no chills. No shortness of breath cough or congestion. CT angiogram revealed no evidence of acute pulmonary embolism. There was some multifocal areas of groundglass opacities that could reflect multifocal alveolar edema and/or developing acute infiltrates. Background mild to moderate emphysema. Nonspecific scattered bilateral subcentimeter nodules. We're consulted for the same. There was some scattered suspicious lytic lesions throughout the osseous structures. He is seen today in consultation on the regular medical floor. He is currently sitting up at the bedside. Awake and alert in no acute distress. He denies any pulmonary symptoms. No shortness of breath, cough or congestion. No fever chills or night sweats. He is having ongoing right scapula pain that radiates through to his anterior chest. White count 10.5. Hemoglobin 12.2. D- dimer 1.49. Sodium 1:30. Potassium 4.5. Creatinine 0.93. Glucose 606. ProBNP 138. Troponin negative 1. He was given ceftriaxone and azithromycin in the emergency room. 0.9#830 ML's per hour. He has been receiving Dilaudid, T oradol, Ativan. The patient is seen today 10/18/2019 in follow-up on the regular medical floor. He is currently sitting up in chair at the bedside. Awake and alert in no acute distress. His right shoulder pain is improved. Still no complaints of shortness of breath, cough or congestion. Maintaining O2 saturations in the 90s on room air. He's been afebrile. White count 13.9. Hemoglobin 12.2. Sodium 136. Potassium 4.4. Creatinine 0.63. On 10/19/2019 patient seen in follow-up on general medical surgical floor. He is awake and alert, currently on 2 L of oxygen the pulse ox of 97%, he states he still having a lot of pain in his shoulder. But denies any difficulty breathing. Breathing seems to be comfortable. He has his CPAP at the bedside, he has been using it at bedtime. No fever or chills, hemodynamically stable, no complaint of chest pain. Denies any cough or congestion. Vital signs have been stable. Has had no acute events overnight. He is receiving pain medications for the right shoulder pain, and PT and OT services have been consulted. On 10/20/2019 patient seen in follow-up on the general medical oncology floor, he is resting comfortably in bed, he denies any pulmonary complaints, his vital signs are stable, sounds positive for a few scattered rhonchi, no wheezing, room air pulse ox is 92-94%, hemodynamically stable, breathing is nonlabored. Complaints of chest pain, no hemoptysis, still having some mild right shoulder pain, which is the same according to the patient, orthopedic surgery is following the patient, medical oncology is following. Bone scan was done and there was not a pattern of osseous metastatic disease. Objective - Vital Signs Vital signs: Vital Signs Temp 97.9 F 10/20/19 05:00 Pulse 101 H 10/20/19 05:00 Resp 20 10/20/19 05:00 BP 146/94 10/20/19 00:22 Pulse Ox 92 L 10/20/19 05:00 Intake & Output 10/19/19 10/20/19 10/20/19 18:59 06:59 18:59 Intake Total 2700 Balance 2700 Intake: Intake, IV Titration 1070 Amount Sodium Chloride 0.9% 1, 1070 000 ml @ 130 mls/hr IV . Q7H42M [facility] Rx#:[id number] Oral 1630 Other: Voiding Method Toilet Toilet # Voids 2 2 - Exam GENERAL EXAM: Alert, very pleasant, white male, on room air resting comfortably in bed, with a pulse ox of 92%, comfortable in no apparent distress. HEAD: Normocephalic/atraumatic. EYES: Normal reaction of pupils, equal size. Conjunctiva pink, sclera white. NOSE: Clear with pink turbinates. THROAT: No erythema or exudates. NECK: No masses, no JVD, no thyroid enlargement, no adenopathy. CHEST: No chest wall deformity. Symmetrical expansion. LUNGS: Equal air entry with no crackles, wheeze, rhonchi or dullness. CVS: Regular rate and rhythm, normal S1 and S2, no gallops, no murmurs, no rubs ABDOMEN: Soft, nontender. No hepatosplenomegaly, normal bowel sounds, no guarding or rigidity. EXTREMITIES: No clubbing, no edema, no cyanosis, 2+ pulses and upper and lower extremities. MUSCULOSKELETAL: Muscle strength and tone normal. SPINE: No scoliosis or deformity SKIN: No rashes CENTRAL NERVOUS SYSTEM: Alert and oriented -3. No focal deficits, tone is normal in all 4 extremities. PSYCHIATRIC: Alert and oriented -3. Appropriate affect. Intact judgment and insight. - Labs CBC & Chem 7: 10/18/19 07:22 10/18/19 07:22 Labs: Abnormal Lab Results - Last 24 Hours (Table) 10/17/19 10/19/19 10/19/19 Range/Units 06:33 11:36 17:03 POC Glucose (mg/dL) 224 H 319 H (75-99) mg/dL Albumin (PEP) 3.24 L (3.80-4.90) g/dL Vxsjn-4-Jgesqcjfw 0.49 H (0.10-0.40) g/dL Gamma Globulins 0.64 L (0.70-1.50) g/dL 10/19/19 10/19/19 10/20/19 Range/Units 18:49 22:10 01:38 POC Glucose (mg/dL) 320 H 386 H 199 H (75-99) mg/dL Albumin (PEP) (3.80-4.90) g/dL Rvtym-3-Wehejxosj (0.10-0.40) g/dL Gamma Globulins (0.70-1.50) g/dL 10/20/19 Range/Units 07:00 POC Glucose (mg/dL) 375 H (75-99) mg/dL Albumin (PEP) (3.80-4.90) g/dL Jxait-4-Yldjbtbaz (0.10-0.40) g/dL Gamma Globulins (0.70-1.50) g/dL Microbiology - Last 24 Hours (Table) 10/17/19 10:55 Blood Culture - Preliminary Blood No Growth after 48 hours Assessment and Plan Plan: Assessment: Significant pain and discomfort in the right shoulder, scapula, anterior chest and right arm of unclear etiology. Recent cervical neck surgery, discharge on 10/13/2019. Pulmonary embolism ruled out. Scattered suspicious lytic lesions throughout the osseous structures, differenti al includes a lytic metastatic disease versus multiple myeloma Multifocal areas of groundglass opacity with possible multifocal alveolar edema versus developing acute infiltrates without any pulmonary symptoms Mild to moderate underlying emphysematous changes with nonspecific scattered bilateral subcentimeter nodules Chronic and ongoing tobacco dependence Diabetes mellitus Hypertension Morbid obesity Obstructive sleep apnea utilizing BiPAP in the outpatient setting History of pancreatitis with pseudocyst and previous stent placement History of anxiety/depression/bipolar 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 I performed a history & physical examination of the patient and discussed their management with my nurse practitioner, Aurelia Arenas. I reviewed the nurse practitioner's note and agree with the documented findings and plan of care. Lung sounds are positive for diminished breath sounds. The findings and the imp ression was discussed with the patient. I attest to the documentation by the nurse practitioner. Time with Patient: Less than 30
[2019-10-20 11:54] LABS: Glucose,Whole Blood 245 mg/dL (75-99)
[2019-10-20] MEDS ORDERED: IOPAMIDOL CONTRAST (ORAL USE) VIAL PO PRN (14:01)
--- NOTE | 2019-10-20 14:20 | MR ---
EXAMINATION TYPE: MR tib fib RT wo/w con DATE OF EXAM: 10/20/2019 COMPARISON: Right leg x-ray from yesterday. Whole body bone scan 2 days ago. HISTORY: Abnormal sclerosis, R/O pathologic fracture. CONTRAST: Standard multiplanar, multisequence MRI departmental protocol utilizing 10 mL intravenous Gadavist ga dolinium contrast. FINDINGS: Exam is suboptimal as due to patient's constant motion and noncooperation, shortened protoc ol had to be utilized. Corresponding to recent x-ray and bone scan there is heterogeneity at area of clinical concern proximal tibial metaphysis. Seen best on sagittal images there is irregular linear l ow T1 signal consistent with acute comminuted nondisplaced fracture as suspected on x-ray. There is o verall some diminished T1 signal at this level without definitive postcontrast enhancement. No adjace nt soft tissue mass is clearly identified. Generalized diminished T1 signal at this level versus gi rika of femur likely corresponds to the irregular sclerosis. No definitive cystic lesion noted. Muscle bulk and bilateral legs is maintained. There is likely additional subchondral insufficiency fr acture in the proximal tibia with serpiginous low T1 and T2 signal areas noted versus bone infarcts. IMPRESSION: Confirmation of comminuted nondisplaced proximal tibial fracture. Fracture suspected more subacute in age given the presence of lucency and sclerosis on recent x-ray. Lack of axial lesions i n the spine or pelvis makes underlying metastatic disease unlikely. Primary bone lesion at this level not entirely excluded especially if cannot correlate with history of recent trauma though favored un likely.
--- NOTE | 2019-10-20 14:48 | P.PN ---
<Phoebe Duckworth - Last Filed: 10/20/19 22:17> Subjective Progress Note Date: 10/20/19 Principal diagnosis: recurrent fractures Further discussed with pulmonology no plan for bronch at this time, repeat CT in 3-4 months Objective - Vital Signs Vital signs: Vital Signs Temp 97.9 F 10/20/19 05:00 Pulse 101 H 10/20/19 05:00 Resp 20 10/20/19 05:00 BP 146/94 10/20/19 00:22 Pulse Ox 92 L 10/20/19 05:00 Intake & Output 10/19/19 10/20/19 10/20/19 18:59 06:59 18:59 Intake Total 2700 Balance 2700 Intake: Intake, IV Titration 1070 Amount Sodium Chloride 0.9% 1, 1070 000 ml @ 130 mls/hr IV . Q7H42M [facility] Rx#:[id number] Oral 1630 Other: Voiding Method Toilet Toilet # Voids 2 2 - Exam - Constitutional General appearance: no acute distress - EENT Eyes: EOMI, PERRLA ENT: hearing grossly normal, normal oropharynx - Neck Neck: no lymphadenopathy, other (Incision right lower anterior neck, CDI) Thyroid: bilateral: normal size - Respiratory Respiratory: bilateral: CTA - Cardiovascular Rhythm: regular Heart sounds: normal: S1, S2 - Gastrointestinal General gastrointestinal: no organomegaly, soft, no tenderness - Integumentary Bruising on her right big toe - Neurologic Neurologic: CNII-XII intact - Musculoskeletal Musculoskeletal: generalized weakness, strength equal bilaterally - Psychiatric Psychiatric: A&O x's 3, appropriate affect Very anxious - Labs CBC & Chem 7: 10/20/19 14:40 10/20/19 14:40 Labs: Abnormal Lab Results - Last 24 Hours (Table) 10/19/19 10/19/19 10/19/19 Range/Units 17:03 18:49 22:10 POC Glucose (mg/dL) 319 H 320 H 386 H (75-99) mg/dL 10/20/19 10/20/19 10/20/19 Range/Units 01:38 07:00 11:52 POC Glucose (mg/dL) 199 H 375 H 245 H (75-99) mg/dL Microbiology - Last 24 Hours (Table) 10/17/19 10:55 Blood Culture - Preliminary Blood No Growth after 72 hours Assessment and Plan Plan: Chest x-ray: report reviewed CT scan - chest: report reviewed Assessment and Plan: Abnormal CT scan, chest: - Negative Pulmonary Embolism - Bilateral lung nodules which appear non-specific (inflammation versus metastatic disease) with somewhat prominent mediastinal adenopathy. - Defer tissue biopsy of mediastinal nodes to pulmonary medicine. Possibly via bronchoscopy Will discuss with pulmonology if planning for this versus repeat CT (per progress note). Bone lesion - The computed tomography scan mentions possible scattered small lytic bone lesions. - Bone scan negative for lytic lesions - No monoclonal proteins seen - PSA pending Bipolar: - Patient reports he falls often and is intense in his everyday activity - Psych consultation may be beneficial Plan: - Further imaging as thoracic abnormalities, if a malignant process, consideration as appearance more consistent with a metastatic process - Bone density as outpatient for recurrent fractures - Defer Lymph node biopsy of mediastinal nodes to Pulmonary, pulm nodules non-specific and can be follow-up in 3 to 4 months with repeat imaging - Pancreas body lesion per radiology is cystic and benign appearance. - Await ortho recs - Await PSA Defer to the admitting service and other consultants for management of his other medical issues <Macho,Ata - Last Filed: 10/22/19 09:25> Objective - Vital Signs Vital signs: Vital Signs Temp 97.5 F L 10/22/19 05:00 Pulse 88 10/22/19 05:00 Resp 20 10/22/19 05:00 BP 160/98 10/22/19 05:00 Pulse Ox 96 10/22/19 05:00 Intake & Output 10/21/19 10/22/19 10/22/19 18:59 06:59 18:59 Intake Total 600 Balance 600 Intake: Oral 600 Other: Voiding Method Toilet Toilet # Voids 1 4 # Bowel Movements 1 - Labs CBC & Chem 7: 10/22/19 06:25 10/22/19 06:25 Labs: Abnormal Lab Results - Last 24 Hours (Table) 10/21/19 10/21/19 10/22/19 Range/Units 11:00 20:10 06:25 WBC 17.4 H (3.8-10.6) k/uL Neutrophils # 15.3 H (1.3-7.7) k/uL Sodium (137-145) mmol/L Chloride (98-107) mmol/L BUN (9-20) mg/dL Glucose (74-99) mg/dL POC Glucose (mg/dL) 183 H 111 H (75-99) mg/dL Alkaline Phosphatase (38-126) U/L 10/22/19 10/22/19 Range/Units 06:25 07:14 WBC (3.8-10.6) k/uL Neutrophils # (1.3-7.7) k/uL Sodium 135 L (137-145) mmol/L Chloride 97 L (98-107) mmol/L BUN 26 H (9-20) mg/dL Glucose 285 H (74-99) mg/dL POC Glucose (mg/dL) 340 H (75-99) mg/dL Alkaline Phosphatase 142 H (38-126) U/L Microbiology - Last 24 Hours (Table) 10/17/19 10:55 Blood Culture - Preliminary Blood No Growth after 96 hours Assessment and Plan (1) Abnormal CT scan, chest Current Visit: Yes Status: Acute Code(s): R93.89 - ABNORMAL FINDINGS ON DX IMAGING OF OTH BODY STRUCTURES SNOMED Code(s): 72172505216375840 (2) Bone lesion Current Visit: Yes Status: Acute Code(s): M89.9 - DISORDER OF BONE, UNSPECIFIED SNOMED Code(s): 16790016 Plan: As above; Add: PSA is also normal Thus there is no definite evidence of malignancy at this time. Agree with plan to repeat CT in 3-4 mths, and consider biopsy in case of progression of adenopathy/any new , suspicious findings
[2019-10-20 14:58] LABS: Basophils % (A) 0 %; Eosinophils # (A) 0.1 k/uL (0-0.7); Eosinophils % (A) 1 %; HCT 43.5 % (39.0-53.0); HGB 13.8 gm/dL (13.0-17.5); Lymphocytes # (A) 1.2 k/uL (1.0-4.8); Lymphocytes % (A) 7 %; MCH 28.9 pg (25.0-35.0); MCHC 31.7 g/dL (31.0-37.0); MCV 91.3 fL (80.0-100.0); Mean Platelet Volume 7.1; Monocytes # (A) 0.4 k/uL (0-1.0); Monocytes % (A) 2 %; Neutrophils # (A) 15.1 k/uL (1.3-7.7); Neutrophils % (A) 89 %; Platelet Count 313 k/uL (150-450); RBC 4.76 m/uL (4.30-5.90); RDW 12.6 % (11.5-15.5); WBC 16.9 k/uL (3.8-10.6)
[2019-10-20] MEDS ORDERED: HYDROmorphone 0.5 MG/0.5 ML SYRINGE IM PRN (14:59)
[2019-10-20] MEDS ORDERED: HYDROmorphone 0.5 MG/0.5 ML SYRINGE IVP PRN (15:05)
[2019-10-20 15:15] LABS: ALT 25 U/L (4-49); AST 26 U/L (17-59); African American GFR (CKD) >90 (>60 ml/min/1.73 sqM); Albumin 4.1 g/dL (3.5-5.0); Alkaline Phosphatase 148 U/L (38-126); Anion Gap 10 mmol/L; Blood Urea Nitrogen 24 mg/dL (9-20); Calcium 10.1 mg/dL (8.4-10.2); Carbon Dioxide 25 mmol/L (22-30); Chloride 98 mmol/L (98-107); Glucose 240 mg/dL (74-99); Non-African American GFR(CKD) >90 (>60 ml/min/1.73 sqM); Potassium 4.4 mmol/L (3.5-5.1); Sodium 133 mmol/L (137-145); Total Bilirubin 0.6 mg/dL (0.2-1.3)
[2019-10-20 17:09] LABS: Glucose,Whole Blood 473 mg/dL (75-99)
--- NOTE | 2019-10-20 17:09 | P.PN ---
Progress Note - Text Progress Note Date: 10/20/19 Orthopedics: History of present illness: Patient is a very pleasant 54-year-old male well-known to our service was seen and examined the bedside following evaluation in regards to his cervical spine, right scapula, and right lower extremity. Since being seen and examined yesterday he has not had any significant change in his symptoms. He continues to experience right inferior scapular pain which has been ongoing over the past couple days without known injury. He has difficulty lying down and sitting in a comfortable position. He changes positions frequently. He continues to deny any falls following his recent discharge from the hospital following surgical intervention on his cervical spine. He is status post C6-7 and C7-T1 anterior cervical decompression and fusion with open reduction internal fixation of C7 due to a burst fracture performed 13 days ago. He states his right scapular pain has been debilitating. Elevating his right upper extremity above the head helps alleviate some of his right scapular pain. Postoperatively he is at significant improvement of his left upper extremity. He has continued to have some discomfort in the left upper extremity but overall his symptoms have significantly improved. He has much better active range of motion of the left upper extremity. He does continue to have some atrophy and weakness postoperatively with the left upper extremity. He continues to wear his hard cervical collar as instructed previously. In regards to his right lower extremity, he states that he is not currently experiencing any significant pain below the knee. He has difficulty sitting still and has been ambulating in the room frequently during my physical examination. He is able to ambulate without any significant difficulty. He is scheduled to undergo an MRI of the left tibia with without contrast this afternoon. He continues to be seen in exam by multiple medical providers including medicine and oncology and is undergoing extensive evaluation regards to the multiple findings found on multiple imaging modalities. He has been to ambulate in the hallways without difficulty and is not currently experiencing any significant difficulties with his lower extremities. Physical exam: Postoperative day #13 at his cervical spine Patient is awake, alert, and oriented 3 Vital signs stable Good chest excursion with deep inspiration and expiration Abdomen soft nontender Examination of the cervical spine reveals skin is intact with no abrasions, lacerations, or bruises; no erythema, purulence or signs of infection Incision over the cervical spine is healing well Hard cervical collar intact Adequate but reduced range of motion of the cervical spine with adequate flexion, extension, and bilateral rotation Information Systems Consultant strength, 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, interosseous strength, biceps strength, triceps strength, and shoulder strength positive sustained bilaterally Patient does have some chronic weakness and evidence of atrophy at the left upper extremity but has had significant improvement of active range of motion of the left upper extremity postoperatively Significant pain with palpation along the right inferior medial scapular border and at the inferior of the right scapula He protects his right upper extremity and frequently lifts his right upper extremity above his head to help reduce his scapular pain No specific pain with palpation over the right tibia History of [place]-Schlatter's at the right knee Pertinent studies: MRI of the scapula taken on 10/19/2019: Mild deformity of the inferior scapula without evidence of fluid or edema X-rays of the scapula taken on 10/19/2019: Evidence of fracture the anterior tip of the scapula with 1.5 cm of posterior displacement which may represent pathologic fracture given osseous changes described at the proximal tibia and other findings found on bone scan and CT imaging X-rays of the right tibia-fibula and knee taken on 10/19/2019: Progressive abnormal sclerosis along the proximal tibial metaphysis and interval development of subtle periostitis along the anterior lateral cortex which may represent pathologic fracture; old [place]-Schlatter's disease Nuclear medicine whole-body bone scan taken on 10/18/2019: Increased uptake at the right inferior scapula; multiple foci of increased uptake at the anterior left ribs of the third, fourth, fifth, and ninth ribs; increased uptake lower cervical spine consistent with recent surgery; significant increased uptake at the left proximal tibia; single focus of increased uptake in the left frontal bone; decreased activity the right hip consistent with hip prosthesis Complete bone survey taken on 10/18/2019: Negative bone survey; no evidence of osteolytic or osteoblastic disease CTA of the chest taken on 10/17/2019: No evidence of acute pulmonary embolism; multifocal areas of groundglass opacities cervical mild to moderate underlying emphysematous change and nonspecific scatter bilateral subcentimeter nodules in which metastatic disease is not excluded; some scattered suspicious lytic lesions throughout the visualized osseous structures Assessment: Status post C6-7 and C7-T1 anterior cervical decompression and fusion open reduction internal fixation of C7 due to a burst fracture Left upper extremity weakness and radiculopathy Right scapular pain and shoulder pain Deformity of the right inferior scapula which may represent pathologic fracture Right lower extremity pain, improving Abnormal sclerosis of the right proximal tibia Pulmonary nodules Scattered lytic lesions of the osseous structures Multiple areas of increased uptake at multiple left ribs, right inferior scapula, right proximal tibia and frontal bone Plan: 1. Patient has been discussed in detail with Dr. Jose Manuel Barger. We will continue to gather information from his multiple imaging modalities. Patient did have difficulty obtaining the MRI of the right scapula due to his pain. Imaging does show evidence of fracture at the right scapula but it is difficult to determine if this is a pathologic fracture. Patient continues to experience significant right scapular pain over the past several days without known injury. The symptoms were not present during his admission to the hospital when he underwent fusion at his cervical spine. He does continue to have some right knee pain at the tibia but is not currently complaining of any significant knee pain. X-ray imaging did show evidence of abnormal sclerotic change at the right proximal tibia. Patient is currently scheduled to undergo MRI of the right tibia/fibula with and without contrast today. Following the completion of his right lower extremity MRI, we are planning to review the right lower extremity MRI results and follow-up with the patient is discuss these results and determine plan of care proceeding forward. We will continue to follow patient closely during this admission. 2. Patient will continue to be seen by multiple other medical providers including medicine, pulmonology, and oncology 3. Continue medications for pain control as prescribed
[2019-10-20] MEDS ORDERED: INSULIN ASPART (NovoLOG) 100 UNIT/ML VIAL SQ ONE (17:52)
[2019-10-20 20:12] LABS: Glucose,Whole Blood 321 mg/dL (75-99)
[2019-10-20] MEDS: MONTELUKAST 10 MG TAB PO SCH (20:52)
[2019-10-20] MEDS: INSULIN DETEMIR (LEVEMIR) 100 UNIT/ML SYR SQ SCH (20:52)
[2019-10-20] MEDS: MELATONIN 5 MG TABLET PO SCH (20:52)
[2019-10-20] MEDS: traZODone HCL 100 MG TAB PO SCH (20:52)
[2019-10-20] MEDS: PRAVASTATIN SODIUM 40 MG TAB PO SCH (20:54)
[2019-10-21] MEDS: HYDROmorphone 1 MG/ML 1 ML SYRINGE IVP PRN ×8 (00:04→19:50)
[2019-10-21] MEDS: HYDROcodone/APAP 7.5-325MG 1 EACH TAB PO PRN ×4 (02:17→17:48)
[2019-10-21] MEDS: LORazepam 2 MG/ML INJ IV PRN ×4 (02:24→17:48)
[2019-10-21] MEDS: DEXAMETHASONE SOD PHOSPHATE 4 MG/ML 1 ML VIAL IV SCH ×5 (05:01→23:31)
[2019-10-21 06:59] LABS: Glucose,Whole Blood 254 mg/dL (75-99)
[2019-10-21] MEDS: INSULIN ASPART (NovoLOG) 100 UNIT/ML VIAL SQ SCH ×4 (07:37→20:41)
[2019-10-21] MEDS: NICOTINE 14MG/24HR PATCH TRANSDERM SCH (07:40)
[2019-10-21] MEDS: amLODIPine 5 MG TAB PO SCH (07:40)
[2019-10-21] MEDS: MULTIVITAMINS, THERA 1 EACH TAB PO SCH (07:40)
[2019-10-21] MEDS: FAMOTIDINE 20 MG TAB PO SCH (07:40)
[2019-10-21] MEDS: GABAPENTIN 300 MG CAP PO SCH ×2 (07:40→20:39)
[2019-10-21] MEDS: DULoxetine HCL 30 MG CAPSULE.DR PO SCH ×2 (07:40→20:40)
[2019-10-21] MEDS: METOPROLOL TARTRATE 25 MG TAB PO SCH ×2 (07:40→20:39)
[2019-10-21] MEDS: FENOFIBRATE 160 MG TAB PO SCH (07:41)
[2019-10-21] MEDS: lamoTRIgine 100 MG TAB PO SCH ×2 (07:41→20:39)
--- NOTE | 2019-10-21 08:12 | P.PN ---
Subjective Principal diagnosis: Shoulder pain Still complains of shoulder pain that did not improve with tapering IV pain meds Objective - Vital Signs Vital signs: Vital Signs Temp 98.1 F 10/21/19 05:00 Pulse 99 10/21/19 05:00 Resp 17 10/21/19 05:00 BP 170/92 10/21/19 05:00 Pulse Ox 94 L 10/21/19 05:00 Intake & Output 10/20/19 10/21/19 10/21/19 18:59 06:59 18:59 Intake Total 1580 Balance 1580 Intake: Oral 1580 Other: Voiding Method Toilet # Voids 4 2 - Exam General: [non toxic], [no distress], [appears at stated age] Derm: [warm], [dry] Head: [atraumatic], [normocephalic], [symmetric], cervical collar in place with midline scar Eyes: [EOMI], [no lid lag], [anicteric sclera] Mouth: [no lip lesion], [mucus membranes moist] Cardiovascular: [S1S2 reg], [no murmur], Lungs: [CTA bilateral], [no rhonchi, no rales] Abdominal: [soft], [ nontender to palpation], [no guarding], Ext: [no gross muscle atrophy], [no edema], tenderness to palpation over the medial scapula Neuro: [no focal neuro deficits] Psych: [Alert], [oriented] - Labs CBC & Chem 7: 10/20/19 14:40 10/20/19 14:40 Labs: Abnormal Lab Results - Last 24 Hours (Table) 10/20/19 10/20/19 10/20/19 Range/Units 11:52 14:40 14:40 WBC 16.9 H (3.8-10.6) k/uL Neutrophils # 15.1 H (1.3-7.7) k/uL Sodium 133 L (137-145) mmol/L BUN 24 H (9-20) mg/dL Glucose 240 H (74-99) mg/dL POC Glucose (mg/dL) 245 H (75-99) mg/dL Alkaline Phosphatase 148 H (38-126) U/L 10/20/19 10/20/19 10/21/19 Range/Units 17:07 20:06 06:57 WBC (3.8-10.6) k/uL Neutrophils # (1.3-7.7) k/uL Sodium (137-145) mmol/L BUN (9-20) mg/dL Glucose (74-99) mg/dL POC Glucose (mg/dL) 473 H 321 H 254 H (75-99) mg/dL Alkaline Phosphatase (38-126) U/L Microbiology - Last 24 Hours (Table) 10/17/19 10:55 Blood Culture - Preliminary Blood No Growth after 72 hours Assessment and Plan Plan: Intractable right shoulder pain, scapular fracture - Pain medications -MRI of the scapula and tibial/fibula no acute fracture, consistent with old fracture right shoulder. -PT/OT evaluation, input appreciated -Consult orthopedic surgery appreciated - Comminuted nondisplaced proximal tibial fracture, likely subacute: Continue pain control as indicated, Ortho following Leukocytosis -Likely related to steroid therapy no signs of infection , monitor pending the Recent open reduction internal fixation a C7 burst fracture -Consult orthopedic surgery -Pain control, increase Dilaudid and baclofen as needed -Continue as hard cervical collar Multiple thoracic lesions in conjunction with multiple pulmonary nodules -Question if this could be related to recurrent malignancy, multiple myeloma, or prior osteomyelitis -Consult oncology -Pulmonary recommendations appreciated -Bone scan and skeletal survey were is not suspicious for metastatic bone cancer -PSA added by oncology -Follow protein electrophoresis Diabetes mellitus type 2 with hyperglycemia -Continue with long-acting and sliding scale insulin -Follow blood sugars -Last A1c 11.3 09/03/19 Hyponatremia, suspect pseudohyponatremia secondary to hyperglycemia -IV fluids Tobacco abuse -Smoking cessation Hypertension, essential -continue home meds Obstructive sleep apnea -BiPAP use Bipolar disorder with zachary -Continue home psych meds -consult psych Disposition: Home likely tomorrow once pain is better controlled , if cleared by Ortho
[2019-10-21] MEDS: QUEtiapine 100 MG TAB PO SCH ×3 (10:33→20:40)
[2019-10-21 11:01] LABS: Glucose,Whole Blood 183 mg/dL (75-99)
[2019-10-21] MEDS: BACLOFEN 10 MG TAB PO PRN ×2 (13:17→20:52)
--- NOTE | 2019-10-21 13:32 | P.PN ---
Progress Note - Text Progress Note Date: 10/21/19 Patient is seen and examined at bedside. He is in terrible pain at the back of his shoulders in the middle of his back. He says he also has pain down the back of his bilateral arms. He denies any new weakness. Denies any changes in neurologic status. He is mobile all over the room and he is having an extremely difficult time trying to hold still because he feels he has to move around and bend forward to alleviate the pain at the back of his shoulders. His incision site looks clear. His neck has no cigarette swelling. He has been taking on and off his cervical collar. He has improved motion in his left upper extremity and continued good motion in his right upper extremity. He is able lift his arms above his head and open and close his hands well been flex and extend his elbows. He does not have any hyperreflexia. His lower extremities have full active and passive range of motion. He has some soreness at his proximal tibia on the right. The imaging of his knee has reviewed as well as imaging of her his scapula. There is evidence of chronic fractures. The knee fracture may have occurred at the time he fractured his C7 vertebrae about a few weeks ago. He is unsure as to the time of line of the fracture at the scapula. It is quite in place for fracture from a regular fall and this may need further workup. Currently patient is having severe pain is writhing in pain. Psych has been counseled that for him as he is quite agitated. We are try to control this with some medication. Given his new surgery with the T7 burst fracture and fusion from C6 to T1 I think that we need to obtain new imaging with computed tomography scan to evaluate the position of the hardware and to see if there is anything new going on around the spinal column. There certainly will be some fluid collection which is to be expected with a new surgery. He is neurologically intact and he is not having neurologic demise. It is difficult to determine the specific source of his symptoms as he is somewhat difficult to manage in his overall mannerism and his traumatic presentation. But he is still trying to be cooperative. We'll continue following him closely.
--- NOTE | 2019-10-21 14:22 | CT ---
EXAMINATION TYPE: CT cervical spine wo con DATE OF EXAM: 10/21/2019 COMPARISON: CT neck 2012 HISTORY: Cervical fusion follow-up C6 to T1 CT DLP: 1048.3 mGycm. Automated Exposure Control for Dose Reduction was Utilized. TECHNIQUE: CT scan of the cervical spine is obtained without contrast, axial images are obtained, sa gittal and coronal reformatted images are also reviewed. FINDINGS: Cervical spine is visualized in its entirety from C1 through upper thoracic levels, there i s now a shaped scoliosis on coronal images dextroconvex curvature of the lower cervical spine and lev oconvex curvature centered at T3-T4 level. Sagittal images show reversal of normal cervical curvature centered C7 level. There is new anterior fusion plate with superior screws along the inferior C6 cooper tebra extending into the northway C6-C7 disc space and inferior screws through the superior to mid T1 v ertebra. There is metallic cage running between the plate new from prior. The disc space heights are fairly well maintained. Moderate multilevel anterior and posterior spurring effaces anterior thecal s ac along the posterior superior C3 through inferior C6 vertebra on sagittal images. Axial images confirm posterior marginal spurring effacing anterior thecal sac along with mild bilater al neural foraminal narrowing C3-C4 level and fairly moderate bilateral neural foraminal narrowing at C4-C5 level. Gas from recent surgery is seen in the prevertebral soft tissue with mild diffuse swell ing.. Lung apices show no pneumothorax. Thyroid gland show slight asymmetric prominence right thyroid lobe. IMPRESSION: As above.
--- NOTE | 2019-10-21 14:53 | P.CN ---
Psychiatric Consult - . Consult date: 10/21/19 Consult:: 10/21/19 14:45 IDENTIFYING DATA: This patient is a 54-year-old male currently lives with a roommate in a house's divorce has 3 kids and is unemployed. HISTORY OF PRESENT ILLNESS: The patient presented to the hospital with comp laints of severe shoulder pain as he recently underwent a orthopedic surgery. Patient was found to have a scapular fracture and worth of following a long for evaluation of patient's condition post surgery and also recommendations for pain management. Psychiatry was consulted for "bipolar". Patient's nurse claims that he has been bizarre and has been demanding medications for pain and has been started on Ativan and Dilaudid and Valium along with steroids for the pain. Patient was seen by telegraphic typewriter operator chief today in his room and appeared to be in severe distress secondary to shoulder and back pain. Patient was in his bathroom and bending forward in pain over his sink. He was attempting to cooperate and was directable to sit on his bed. Patient was able to answer most questions had minimal irritability. Patient was not agitated and following commands. He admitted to being compliant with his medications at home and in the hospital. He states that for the past month this pain has been worsening after his surgery. He claims that his sleep has been poor due to the pain. He states that his mood is "bad" which is been related to his pain. Patient was alert and oriented 3 today and had fair attention span. At this time patient denies any suicidal or homical ideations, intent or plan. Patient denies any auditory, visual hallucinations and denies any paranoia or delusions. Patients admits to using cigarettes daily and denies any other recreational drug use. PAST PSYCHIATRIC HISTORY: Patient has a a history of bipolar disorder. Patient has been on several different medications in the past including Ativan, Cymbalta, Lamictal, melatonin, Seroquel and trazodone which he is currently on. Patient denies any previous psychiatric hospitalizations. Patient states that he is to follow-up with Dr. Castelan in the past as a psychiatrist Patient denies any history of suicide attempts in the past. PAST MEDICAL HISTORY: Diabetes mellitus, osteoarthritis, GERD, hypertension, O SA. ALLERGIES: as per EMR. CHEMICAL DEPENDENCY HISTORY: as per HPI. FAMILY PSYCHIATRIC/SUBSTANCE USE HISTORY: denies SOCIAL HISTORY: Patient was born and raised in [place] and moved to [place]. He states that he currently lives with a roommate in house's divorce has 3 kids and is unemployed. He claims that he has a master's degree from school. He denied any legal problems in the past. MENTAL STATUS EXAM: General Appearance: Patient appears to be older than stated age is alert, attempts to cooperate however is in significant distress secondary to pain. Patient appears to have fair hygiene and grooming wearing hospital gown with poor eye contact. Behavior: Patient is writhing in pain. Speech: Patient's speech is fluent and nonpressured. Mood/Affect: Patient reports their mood is "bad", affect is congruent Suicidality/Homicidality: Patient denies having any suicidal or homicidal ideation intent or plan. Perceptions: Patient denies any visual hallucinations and denies any auditory hallucinations Though content/process: There is no evidence of any delusional thought content and thought process is linear and goal-directed. Focused on pain and medications. Memory and concentration: AOX3, grossly intact for the purposes of this session. Can spell "WORLD" backwards Judgment and insight: Limited IMPRESSIONS: Bipolar disorder unspecified Nicotine dependence PLAN: -At this time patient DOES NOT meet criteria for inpatient psychiatric admission. -Delirium precautions recommended with patient including - avoiding use of narcotics and FILENET ADMIN sedatives, limit anticholinergic medications when possible, frequent re-orientation, minimize use of restraints, open window shades during the day and close them at night. Patient is at increased risk of a manic episode due to excessive narcotics, benzodiazepines and opiates. -Would recommend the following medication changes/additions: Patient can continue on his psychiatric medications as prescribed. Primary team along with orthopedic surgery to try and limit patient's pain medications and steroids, benzodiazepines and opiates. -Continue with investigation of underlying cause of pain -Psychiatry will sign off at this point, please contact with any questions.
[2019-10-21] MEDS: diazePAM 5 MG TAB PO PRN (15:16)
--- NOTE | 2019-10-21 16:34 | P.PN ---
Progress Note - Text Progress Note Date: 10/21/19 Patient was seen as dictated earlier today. The new computed tomography scan is reviewed of the cervical spine. It shows the hardware at C6 to T1 with corpectomy of C7 and anterior cervical plate from see 6 to T1. The plate and interbody graft. Be it good alignment and position. There may be some mild subsidence of the graft into T1 but it appears to be stable without displacement. There is no evidence of impingement into the neural structures. There is no evidence of significant compression of the neural structures. There is some degenerative changes at his upper cervical spine and mid cervical spine. These appear stable. I do not have plans for surgical further intervention for his cervical spine at this point. We will continue to work on his pain control and monitor his status.
[2019-10-21 17:57] LABS: Glucose,Whole Blood 93 mg/dL (75-99)
[2019-10-21 20:12] LABS: Glucose,Whole Blood 111 mg/dL (75-99)
[2019-10-21] MEDS: traZODone HCL 100 MG TAB PO SCH (20:39)
[2019-10-21] MEDS: PRAVASTATIN SODIUM 40 MG TAB PO SCH (20:39)
[2019-10-21] MEDS: MELATONIN 5 MG TABLET PO SCH (20:39)
[2019-10-21] MEDS: MONTELUKAST 10 MG TAB PO SCH (20:40)
[2019-10-21] MEDS: INSULIN DETEMIR (LEVEMIR) 100 UNIT/ML SYR SQ SCH (20:47)
[2019-10-22] MEDS: HYDROmorphone 1 MG/ML 1 ML SYRINGE IVP PRN ×7 (00:55→21:49)
[2019-10-22] MEDS: BACLOFEN 10 MG TAB PO PRN ×3 (04:12→16:47)
[2019-10-22] MEDS: LORazepam 2 MG/ML INJ IV PRN (05:20)
[2019-10-22] MEDS: DEXAMETHASONE SOD PHOSPHATE 4 MG/ML 1 ML VIAL IV SCH ×3 (06:01→18:01)
[2019-10-22 07:15] LABS: Glucose,Whole Blood 340 mg/dL (75-99)
[2019-10-22 07:37] LABS: Basophils % (A) 0 %; Eosinophils % (A) 0 %; HCT 43.3 % (39.0-53.0); HGB 13.8 gm/dL (13.0-17.5); Lymphocytes # (A) 1.3 k/uL (1.0-4.8); Lymphocytes % (A) 8 %; MCH 29.1 pg (25.0-35.0); MCHC 31.9 g/dL (31.0-37.0); MCV 91.1 fL (80.0-100.0); Mean Platelet Volume 7.3; Monocytes # (A) 0.6 k/uL (0-1.0); Monocytes % (A) 3 %; Neutrophils # (A) 15.3 k/uL (1.3-7.7); Neutrophils % (A) 88 %; Platelet Count 342 k/uL (150-450); RBC 4.76 m/uL (4.30-5.90); RDW 12.8 % (11.5-15.5); WBC 17.4 k/uL (3.8-10.6)
[2019-10-22 07:49] LABS: ALT 28 U/L (4-49); AST 36 U/L (17-59); African American GFR (CKD) >90 (>60 ml/min/1.73 sqM); Alkaline Phosphatase 142 U/L (38-126); Anion Gap 9 mmol/L; Blood Urea Nitrogen 26 mg/dL (9-20); Calcium 9.6 mg/dL (8.4-10.2); Carbon Dioxide 29 mmol/L (22-30); Chloride 97 mmol/L (98-107); Glucose 285 mg/dL (74-99); Non-African American GFR(CKD) >90 (>60 ml/min/1.73 sqM); Potassium 4.6 mmol/L (3.5-5.1); Sodium 135 mmol/L (137-145); Total Bilirubin 0.7 mg/dL (0.2-1.3)
[2019-10-22] MEDS: amLODIPine 5 MG TAB PO SCH (07:59)
[2019-10-22] MEDS: lamoTRIgine 100 MG TAB PO SCH ×2 (07:59→20:32)
[2019-10-22] MEDS: GABAPENTIN 300 MG CAP PO SCH ×2 (07:59→20:32)
[2019-10-22] MEDS: MULTIVITAMINS, THERA 1 EACH TAB PO SCH (07:59)
[2019-10-22] MEDS: NICOTINE 14MG/24HR PATCH TRANSDERM SCH (07:59)
[2019-10-22] MEDS: METOPROLOL TARTRATE 25 MG TAB PO SCH ×2 (07:59→20:32)
[2019-10-22] MEDS: FAMOTIDINE 20 MG TAB PO SCH (07:59)
[2019-10-22] MEDS: INSULIN ASPART (NovoLOG) 100 UNIT/ML VIAL SQ SCH ×4 (07:59→20:32)
[2019-10-22] MEDS: FENOFIBRATE 160 MG TAB PO SCH (08:00)
[2019-10-22] MEDS: DULoxetine HCL 30 MG CAPSULE.DR PO SCH ×2 (08:00→20:32)
[2019-10-22] MEDS: QUEtiapine 100 MG TAB PO SCH ×3 (08:00→20:32)
[2019-10-22] MEDS: diazePAM 5 MG TAB PO PRN ×3 (08:08→20:32)
[2019-10-22 11:11] LABS: Glucose,Whole Blood 224 mg/dL (75-99)
[2019-10-22] MEDS: oxyCODONE-APAP 10-325MG 1 EACH TAB PO PRN ×3 (13:04→20:07)
--- NOTE | 2019-10-22 14:21 | P.PN ---
Progress Note - Text Progress Note Date: 10/22/19 The patient is seen and examined at bedside. I was, with calcific nursing as well as internal medicine physician. The patient is significant for a better today than he was yesterday. He is much more comfortable. He is able to stand and sit and have a conversation. He is still a bit hyper pressured with his speech and affect in general. He seems to understand that he needs to wean down off of his medications that we are trying to accomplish. He had a fall yesterday and says that he hit his head but does not feel any significant effects today. He feels that his left arm may not be moving as well as was yesterday but he seems to be moving appropriately. His vital signs are stable Neck incision sites clear without any drainage or significant swelling. He is able to lift his arms up. He is able to move his elbows with adequate strength in flexion but still decreased strength in extension from his triceps on the left. He is no change in motion of his fingers. He is wearing his knee brace on his right knee and he is ambulatory without any changes. There is some hyperpigmentation of his toes bilaterally particularly on the right. This seems to be some chronic change and may have to with his microvascular at work with his diabetes. Assessment and plan Status post anterior cervical decompression with corpectomy of C7 and fusion internal fixation for his C7 burst fracture and neurologic change at his bilateral upper extremities worse on the left than the right Intractable pain at the right shoulder seems to be improving Fracture at the inferior pole of his scapula which appears to be subacute Subacute fracture of the right proximal tibia appears to be healing ap propriately History of substance abuse Diabetes The patient has been very difficult to manage. Hospital over the past few days. His pain is much better today which is encouraging. His computed tomography scan was completed yesterday and I reviewed it shows the hardware in good alignment good position and stable. He had a fall yesterday but does not have any new neurologic changes and I think that is stable as well. Yesterday it was very difficult to discuss anything with him as he was physically moving all over about the room changing positions constantly and essentially trying to hang u pside down to try to manage his pain. Today he feels significant better he is ambulatory is walking around and conversant in the hallways. His difficult to determine the specific etiology of his dramatic affect. He has been seen by psychiatry and I think that is appropriate. We are trying to control his pain. This is somewhat difficult as he does have history of substance abuse. He had been off narcotics for Any period of time but with his new injury he had to restart narcotic medication. Now he is requesting regular narcotic medication but is open trying to wean down the medication slowly. We'll start to spread out the dose of the allotted I try to convert him over to orals so that we could continue to try to manage this on an outpatient basis. He is agreeable to this and we'll try to make that change.
--- NOTE | 2019-10-22 17:07 | P.PN ---
Subjective Progress Note Date: 10/22/19 Patient was seen and examined. No acute events overnight. Complains of right-sided scapular pain, 12/11. Requesting better pain control. He denies any bladder or bowel incontinence. Complains of cramping in his bilateral upper extremities. He denies any chest pain, shortness breath or palpitations. No nausea or vomiting. No fever or chills. Objective - Vital Signs Vital signs: Vital Signs Temp 98 F 10/22/19 11:39 Pulse 87 10/22/19 11:39 Resp 17 10/22/19 11:39 BP 159/97 10/22/19 11:39 Pulse Ox 93 L 10/22/19 11:39 Intake & Output 10/21/19 10/22/19 10/22/19 18:59 06:59 18:59 Intake Total 600 Balance 600 Intake: Oral 600 Other: Voiding Method Toilet Toilet # Voids 1 4 3 # Bowel Movements 1 - Exam General: [non toxic], [no distress], [appears at stated age] Derm: [warm], [dry] Head: [atraumatic], [normocephalic], [symmetric], cervical collar in place with midline scar Eyes: [EOMI], [no lid lag], [anicteric sclera] Mouth: [no lip lesion], [mucus membranes moist] Cardiovascular: [S1S2 reg], [no murmur], [positive DP pulse bilateral], Lungs: [CTA bilateral], [no rhonchi, no rales] , [no accessory muscle use] Abdominal: [soft], [ nontender to palpation], [no guarding], [no appreciable organomegaly] Ext: [no gross muscle atrophy], [no edema], [no contractures], tenderness to palpation over the medial scapula Neuro: [no focal neuro deficits] Psych: [Alert], [oriented], [appropriate affect] - Labs CBC & Chem 7: 10/22/19 06:25 10/22/19 06:25 Labs: Abnormal Lab Results - Last 24 Hours (Table) 10/21/19 10/22/19 10/22/19 Range/Units 20:10 06:25 06:25 WBC 17.4 H (3.8-10.6) k/uL Neutrophils # 15.3 H (1.3-7.7) k/uL Sodium 135 L (137-145) mmol/L Chloride 97 L (98-107) mmol/L BUN 26 H (9-20) mg/dL Glucose 285 H (74-99) mg/dL POC Glucose (mg/dL) 111 H (75-99) mg/dL Alkaline Phosphatase 142 H (38-126) U/L 10/22/19 10/22/19 Range/Units 07:14 11:10 WBC (3.8-10.6) k/uL Neutrophils # (1.3-7.7) k/uL Sodium (137-145) mmol/L Chloride (98-107) mmol/L BUN (9-20) mg/dL Glucose (74-99) mg/dL POC Glucose (mg/dL) 340 H 224 H (75-99) mg/dL Alkaline Phosphatase (38-126) U/L Microbiology - Last 24 Hours (Table) 10/17/19 10:55 Blood Culture - Preliminary Blood No Growth after 120 hours Assessment and Plan Assessment: Intractable right shoulder pain, scapular fracture - Change [place] to Percocet 10 one tab every 4 hours, decreased Dilaudid frequency from 1 mg every 2 hours to every 4 hours as needed only for breakthrough pain -MRI of the scapula shows fracture of the inferior tip of the scapula with 1.5 cm posterior displacement -PT/OT evaluation -Consult orthopedic surgery Leukocytosis -Likely related to steroid therapy no signs of infection we'll continue to monitor Recent open reduction internal fixation a C7 burst fracture -Consult orthopedic surgery -CT cervical spine shows multilevel anterior and posterior spurring, mild bilateral neural foraminal narrowing C3-C4, C4-C5. -Pain control, decrease frequency of Dilaudid and continue baclofen as needed along with Percocet 10s -Continue as hard cervical collar Multiple thoracic lesions in conjunction with multiple pulmonary nodules -Question if this could be related to recurrent malignancy, multiple myeloma, or prior osteomyelitis -Consult oncology, recommends repeat CT chest in 3 months -Pulmonary recommendations appreciated -Bone scan and skeletal survey is not suspicious for metastatic bone cancer -PSA added by oncology is within normal limits -Protein electrophoresis shows no monoclonal paraprotein recognize Diabetes mellitus type 2 with hyperglycemia -Continue with long-acting and sliding scale insulin -Follow blood sugars -Last A1c 11.3 09/03/19 Hyponatremia, suspect pseudohyponatremia secondary to hyperglycemia -IV fluids -Recheck in AM Tobacco abuse -Smoking cessation Hypertension -Resume home meds Obstructive sleep apnea -BiPAP use Bipolar disorder with zachary - resume home psych meds -Psychiatry recommends tapering off narcotic pain medication as this can lead to manic episode [Patient continues to be in pain. Patient was seen with Dr. Barger. Patient agreeable to wean off IV narcotics for hopeful discharge tomorrow. Orthopedic surgery on board.]
[2019-10-22 17:29] LABS: Glucose,Whole Blood 213 mg/dL (75-99)
[2019-10-22 20:02] LABS: Glucose,Whole Blood 432 mg/dL (75-99)
[2019-10-22] MEDS: INSULIN DETEMIR (LEVEMIR) 100 UNIT/ML SYR SQ SCH (20:30)
[2019-10-22] MEDS: PRAVASTATIN SODIUM 40 MG TAB PO SCH (20:31)
[2019-10-22] MEDS: MONTELUKAST 10 MG TAB PO SCH (20:31)
[2019-10-22] MEDS: traZODone HCL 100 MG TAB PO SCH (20:32)
[2019-10-22] MEDS: MELATONIN 5 MG TABLET PO SCH (20:32)
[2019-10-22] MEDS ORDERED: HYDROmorphone 1 MG/ML 1 ML SYRINGE IVP STA (23:42)
[2019-10-23] MEDS: DEXAMETHASONE SOD PHOSPHATE 4 MG/ML 1 ML VIAL IV SCH ×5 (00:59→23:37)
[2019-10-23] MEDS: HYDROmorphone 1 MG/ML 1 ML SYRINGE IVP PRN ×4 (02:40→18:41)
[2019-10-23] MEDS: diazePAM 5 MG TAB PO PRN ×4 (02:40→23:37)
[2019-10-23] MEDS: oxyCODONE-APAP 10-325MG 1 EACH TAB PO PRN ×2 (04:26→09:24)
[2019-10-23] MEDS: BACLOFEN 10 MG TAB PO PRN ×3 (04:28→21:56)
[2019-10-23 07:04] LABS: Glucose,Whole Blood 305 mg/dL (75-99)
[2019-10-23] MEDS: INSULIN ASPART (NovoLOG) 100 UNIT/ML VIAL SQ SCH ×4 (08:05→21:52)
[2019-10-23] MEDS: NICOTINE 14MG/24HR PATCH TRANSDERM SCH (08:05)
[2019-10-23] MEDS: lamoTRIgine 100 MG TAB PO SCH ×2 (08:11→21:53)
[2019-10-23] MEDS: FENOFIBRATE 160 MG TAB PO SCH (08:12)
[2019-10-23] MEDS: DULoxetine HCL 30 MG CAPSULE.DR PO SCH ×2 (08:12→21:52)
[2019-10-23] MEDS: FAMOTIDINE 20 MG TAB PO SCH (08:12)
[2019-10-23] MEDS: GABAPENTIN 300 MG CAP PO SCH ×3 (08:13→21:56)
[2019-10-23] MEDS: METOPROLOL TARTRATE 25 MG TAB PO SCH ×2 (08:13→21:53)
[2019-10-23] MEDS: amLODIPine 5 MG TAB PO SCH (08:13)
[2019-10-23] MEDS: MULTIVITAMINS, THERA 1 EACH TAB PO SCH (08:13)
[2019-10-23] MEDS: QUEtiapine 100 MG TAB PO SCH ×3 (08:14→22:08)
[2019-10-23 08:27] LABS: Basophils % (A) 0 %; Eosinophils # (A) 0.1 k/uL (0-0.7); Eosinophils % (A) 0 %; HCT 42.5 % (39.0-53.0); HGB 13.7 gm/dL (13.0-17.5); Lymphocytes # (A) 1.3 k/uL (1.0-4.8); Lymphocytes % (A) 7 %; MCH 29.4 pg (25.0-35.0); MCHC 32.2 g/dL (31.0-37.0); MCV 91.3 fL (80.0-100.0); Mean Platelet Volume 7.3; Monocytes # (A) 0.5 k/uL (0-1.0); Monocytes % (A) 3 %; Neutrophils # (A) 16.6 k/uL (1.3-7.7); Neutrophils % (A) 89 %; Platelet Count 367 k/uL (150-450); RBC 4.66 m/uL (4.30-5.90); RDW 12.6 % (11.5-15.5); WBC 18.7 k/uL (3.8-10.6)
[2019-10-23 08:35] LABS: ALT 29 U/L (4-49); AST 34 U/L (17-59); African American GFR (CKD) >90 (>60 ml/min/1.73 sqM); Alkaline Phosphatase 139 U/L (38-126); Anion Gap 9 mmol/L; Blood Urea Nitrogen 29 mg/dL (9-20); Calcium 9.7 mg/dL (8.4-10.2); Carbon Dioxide 28 mmol/L (22-30); Chloride 96 mmol/L (98-107); Glucose 302 mg/dL (74-99); Non-African American GFR(CKD) >90 (>60 ml/min/1.73 sqM); Potassium 4.7 mmol/L (3.5-5.1); Sodium 133 mmol/L (137-145); Total Bilirubin 0.7 mg/dL (0.2-1.3); Total Protein 6.9 g/dL (6.3-8.2)
--- NOTE | 2019-10-23 09:14 | P.PN ---
Subjective Progress Note Date: 10/23/19 Principal diagnosis: C7 burst fracture. Status post anterior cervical decompression with corpectomy of C7 and fusion internal fixation for his C7 burst fracture and neurologic change at his bilateral upper extremities worse on the left than the right. This is a 54-year-old male who is status post C7 corpectomy with anterior cervical fusion for C7 burst fracture with neurologic change. The patient states that he had "the worst night of his last night" secondary to his pa in medications having been decreased. The patient is quite angry this morning that his narcotic pain medication is dispensed only every 4 hours. He states that he "has better pain management at home". He is afebrile. His vital signs are stable. Heart rate and blood pressure is slightly elevated. Objective - Vital Signs Vital signs: Vital Signs Temp 98 F 10/23/19 05:00 Pulse 99 10/23/19 05:00 Resp 18 10/23/19 05:00 BP 153/79 10/23/19 05:00 Pulse Ox 93 L 10/23/19 05:00 Intake & Output 10/22/19 10/23/19 10/23/19 18:59 06:59 18:59 Intake Total 240 Balance 240 Intake: Oral 240 Other: Voiding Method Toilet # Voids 3 3 # Bowel Movements 0 - Exam This is a 54-year-old male in no acute distress. He is agitated this morning. Exam of the neck reveals that his incision is well-healed. Hard cervical collar is in place. Exam of the upper extremities reveals continued weakness to the left upper extremity, particularly to the thumb and wrist. Ag[employer] strength is weak is to the left upper extremity compared to the right. Exam of the lower extremities is unremarkable. He has full foot and ankle motion bilaterally. - Labs CBC & Chem 7: 10/23/19 06:43 10/23/19 06:43 Labs: Abnormal Lab Results - Last 24 Hours (Table) 10/22/19 10/22/19 10/22/19 Range/Units 11:10 17:27 20:00 WBC (3.8-10.6) k/uL Neutrophils # (1.3-7.7) k/uL Sodium (137-145) mmol/L Chloride (98-107) mmol/L BUN (9-20) mg/dL Glucose (74-99) mg/dL POC Glucose (mg/dL) 224 H 213 H 432 H (75-99) mg/dL Alkaline Phosphatase (38-126) U/L 10/23/19 10/23/19 10/23/19 Range/Units 06:43 06:43 07:02 WBC 18.7 H (3.8-10.6) k/uL Neutrophils # 16.6 H (1.3-7.7) k/uL Sodium 133 L (137-145) mmol/L Chloride 96 L (98-107) mmol/L BUN 29 H (9-20) mg/dL Glucose 302 H (74-99) mg/dL POC Glucose (mg/dL) 305 H (75-99) mg/dL Alkaline Phosphatase 139 H (38-126) U/L Microbiology - Last 24 Hours (Table) 10/17/19 10:55 Blood Culture - Preliminary Blood No Growth after 120 hours Assessment and Plan (1) S/P neck surgery, follow-up exam Current Visit: Yes Status: Acute Code(s): Z09 - ENCNTR FOR F/U EXAM AFT TRTMT FOR COND OTH THAN MALIG NEOPLM SNOMED Code(s): 682724758 (2) Diabetes mellitus Current Visit: No Status: Acute Code(s): E11.9 - TYPE 2 DIABETES MELLITUS WITHOUT COMPLICATIONS SNOMED Code(s): 09577237 Plan: The clinical findings are discussed the patient. The patient has been difficult since surgery. I advised the patient that I would not be increasing his pain medication or the frequency. Patient states that he will take it up with internal medicine. The patient also states that he is not leaving the hospital until his pain management is to his satisfaction. We had a discussion regarding his history of substance abuse and also regarding his recent falls with narcotic medication. I encouraged him to work with us regarding reasonable pain management so that he does not end up injuring himself further. He did not wish to discuss it any further. We will continue to follow.
[2019-10-23] MEDS ORDERED: oxyCODONE-APAP 10-325MG 1 EACH TAB PO SCH (10:45)
[2019-10-23 11:44] LABS: Glucose,Whole Blood 190 mg/dL (75-99)
--- NOTE | 2019-10-23 12:13 | P.PN ---
Progress Note - Text Progress Note Date: 10/23/19 Patient is seen and examined today at bedside. Dr. Flanagan is present as well. The patient was sleeping when I entered the room. Apparently he had a very bad night with his pain. The stretch out his Dilaudid to 1 mg every 4 hours with Percocet 10 mg every 4 hours and Valium 5 mg every 6 hours. He does have history of substance abuse and narcotic addiction. We will long discussion with him today again at bedside. He does not seem to have new changes in his neurologic status. He is wearing his collar. On exam his left upper extremity still has significant weakness particularly in the triceps. They're essentially unchanged from the days prior. He moves constantly even while he is lying flat in bed he moves his arms constantly up over his head and around. His speech is somewhat pressured. He is certainly anxious. He is able to move his legs adequately. Assessment and plan Status post anterior cervical decompression with discectomy and corpectomy of C7 with fusion C6 to T1 for his C7 burst fracture Upper extremity weakness due to a burst fracture at cord compression History narcotic and opioid addiction with significant requirement for opioids at present Diabetes Neuropathy The patient had some improvement since Saturday but still having significant troubles with his pain control. We continue to try to wean his pain medications but he is having great difficulty with this. He states that there is significant pain and certainly there is likely pain but a good portion of it is also due to his behavior and likely habit forming issues with substances. I tried to explain this to him today at length. I have known the patient along time and I'll try to talk frankly with him and he seems to respond to some degree. He is obviously very intelligent person but is very difficult for him to deal with this pain especially in the scope of his addiction issues. We disc ussed the attempts to continue to try to wean the medications. We will try to spread out the frequency of the Dilaudid but slightly increase the dose as it may give him longer lasting relief over a greater period of time. Certainly would like to get him off the IV medications and that he will be able to go home. This will be quite difficult given his dramatic response to his pain and issues as the medication absorbs. We'll continue to try to manage his closely. We also tried to consult pain management in this regard but they're not available Saturday through Saturday each week. We will continue follow them closely.
[2019-10-23] MEDS: oxyCODONE-APAP 10-325MG 1 EACH TAB PO SCH ×3 (14:28→21:55)
--- NOTE | 2019-10-23 14:41 | P.PN ---
Subjective Progress Note Date: 10/23/19 Patient was seen and examined. No acute events overnight. Complains of right-sided scapular pain, 12/11. Complains of cramping in his bilateral upper extremities. Patient states he had the "worst night of his life", due to the pain that he is in. Dr. Barger was present during the encounter as well. He denies any chest pain, shortness breath or palpitations. No nausea or vomiting. No fever or chills. Objective - Vital Signs Vital signs: Vital Signs Temp 97.9 F 10/23/19 13:00 Pulse 89 10/23/19 13:00 Resp 20 10/23/19 13:00 BP 138/87 10/23/19 13:00 Pulse Ox 96 10/23/19 13:00 Intake & Output 10/22/19 10/23/19 10/23/19 18:59 06:59 18:59 Intake Total 240 Balance 240 Intake: Oral 240 Other: Voiding Method Toilet Toilet # Voids 3 3 # Bowel Movements 0 - Exam General: [non toxic], [moderate distress], [appears at stated age] Derm: [warm], [dry] Head: [atraumatic], [normocephalic], [symmetric], cervical collar in place with midline scar Eyes: [EOMI], [no lid lag], [anicteric sclera] Mouth: [no lip lesion], [mucus membranes moist] Cardiovascular: [S1S2 reg], [tachycardic], [positive DP pulse bilateral], Lungs: [CTA bilateral], [no rhonchi, no rales] , [no accessory muscle use] Abdominal: [soft], [ nontender to palpation], [no guarding], [no appreciable organomegaly] Ext: [no gross muscle atrophy], [no edema], [no contractures], tenderness to palpation over the medial scapula Neuro: [no focal neuro deficits] Psych: [Alert], [oriented], [appropriate affect] - Labs CBC & Chem 7: 10/23/19 06:43 10/23/19 06:43 Labs: Abnormal Lab Results - Last 24 Hours (Table) 10/22/19 10/22/19 10/23/19 Range/Units 17:27 20:00 06:43 WBC 18.7 H (3.8-10.6) k/uL Neutrophils # 16.6 H (1.3-7.7) k/uL Sodium (137-145) mmol/L Chloride (98-107) mmol/L BUN (9-20) mg/dL Glucose (74-99) mg/dL POC Glucose (mg/dL) 213 H 432 H (75-99) mg/dL Alkaline Phosphatase (38-126) U/L 10/23/19 10/23/19 10/23/19 Range/Units 06:43 07:02 11:43 WBC (3.8-10.6) k/uL Neutrophils # (1.3-7.7) k/uL Sodium 133 L (137-145) mmol/L Chloride 96 L (98-107) mmol/L BUN 29 H (9-20) mg/dL Glucose 302 H (74-99) mg/dL POC Glucose (mg/dL) 305 H 190 H (75-99) mg/dL Alkaline Phosphatase 139 H (38-126) U/L Microbiology - Last 24 Hours (Table) 10/17/19 10:55 Blood Culture - Final Blood No Growth after 144 hours Assessment and Plan Assessment: Intractable right shoulder pain, scapular fracture - Change [place] to Percocet 10 one tab every 4 hours, Dilaudid frequency changed to 2mg every 6 hours as needed only for breakthrough pain -MRI of the scapula shows fracture of the inferior tip of the scapula with 1.5 cm posterior displacement -PT/OT evaluation -Consult orthopedic surgery Leukocytosis -Likely related to steroid therapy no signs of infection we'll continue to monitor Recent open reduction internal fixation a C7 burst fracture -Consult orthopedic surgery -CT cervical spine shows multilevel anterior and posterior spurring, mild bilateral neural foraminal narrowing C3-C4, C4-C5. -Pain control, Dilaudid and continue baclofen as needed along with Percocet 10s -Increase gabapentin dosing to 300 mg by mouth 3 times a day. -Continue with cervical collar Multiple thoracic lesions in conjunction with multiple pulmonary nodules -Question if this could be related to recurrent malignancy, multiple myeloma, or prior osteomyelitis -Consult oncology, recommends repeat CT chest in 3 months -Pulmonary recommendations appreciated -Bone scan and skeletal survey is not suspicious for metastatic bone cancer -PSA added by oncology is within normal limits -Protein electrophoresis shows no monoclonal paraprotein recognize Diabetes mellitus type 2 with hyperglycemia -Continue with long-acting and sliding scale insulin -Follow blood sugars -Last A1c 11.3 09/03/19 Hyponatremia, suspect pseudohyponatremia secondary to hyperglycemia -IV fluids -Recheck in AM Tobacco abuse -Smoking cessation Hypertension -Resume home meds Obstructive sleep apnea -BiPAP use Bipolar disorder with zachary - resume home psych meds -Psychiatry recommends tapering off narcotic pain medication as this can lead to manic episode [Patient continues to be in pain. Patient continues to be in excruciating pain. Case discussed with Dr. Barger, will attempt decreasing frequency of Dilaudid but increasing dose. Likely DC in 1-2 days.]
[2019-10-23 17:14] LABS: Glucose,Whole Blood 490 mg/dL (75-99)
--- NOTE | 2019-10-23 17:28 | P.PN ---
Subjective Progress Note Date: 10/23/19 Principal diagnosis: recurrent fractures planning discharge Objective - Vital Signs Vital signs: Vital Signs Temp 97.9 F 10/23/19 13:00 Pulse 89 10/23/19 13:00 Resp 20 10/23/19 13:00 BP 138/87 10/23/19 13:00 Pulse Ox 96 10/23/19 13:00 Intake & Output 10/22/19 10/23/19 10/23/19 18:59 06:59 18:59 Intake Total 240 Balance 240 Intake: Oral 240 Other: Voiding Method Toilet Toilet # Voids 3 3 4 # Bowel Movements 0 - Exam - Constitutional General appearance: no acute distress - EENT Eyes: EOMI, PERRLA ENT: hearing grossly normal, normal oropharynx - Neck Neck: no lymphadenopathy, other (Incision right lower anterior neck, CDI) Thyroid: bilateral: normal size - Respiratory Respiratory: bilateral: CTA - Cardiovascular Rhythm: regular Heart sounds: normal: S1, S2 - Gastrointestinal General gastrointestinal: no organomegaly, soft, no tenderness - Integumentary Bruising on her right big toe - Neurologic Neurologic: CNII-XII intact - Musculoskeletal Musculoskeletal: generalized weakness, strength equal bilaterally - Psychiatric Psychiatric: A&O x's 3, appropriate affect Very anxious - Labs CBC & Chem 7: 10/23/19 06:43 10/23/19 06:43 Labs: Abnormal Lab Results - Last 24 Hours (Table) 10/22/19 10/22/19 10/23/19 Range/Units 17:27 20:00 06:43 WBC 18.7 H (3.8-10.6) k/uL Neutrophils # 16.6 H (1.3-7.7) k/uL Sodium (137-145) mmol/L Chloride (98-107) mmol/L BUN (9-20) mg/dL Glucose (74-99) mg/dL POC Glucose (mg/dL) 213 H 432 H (75-99) mg/dL Alkaline Phosphatase (38-126) U/L 10/23/19 10/23/19 10/23/19 Range/Units 06:43 07:02 11:43 WBC (3.8-10.6) k/uL Neutrophils # (1.3-7.7) k/uL Sodium 133 L (137-145) mmol/L Chloride 96 L (98-107) mmol/L BUN 29 H (9-20) mg/dL Glucose 302 H (74-99) mg/dL POC Glucose (mg/dL) 305 H 190 H (75-99) mg/dL Alkaline Phosphatase 139 H (38-126) U/L 10/23/19 Range/Units 17:13 WBC (3.8-10.6) k/uL Neutrophils # (1.3-7.7) k/uL Sodium (137-145) mmol/L Chloride (98-107) mmol/L BUN (9-20) mg/dL Glucose (74-99) mg/dL POC Glucose (mg/dL) 490 H (75-99) mg/dL Alkaline Phosphatase (38-126) U/L Microbiology - Last 24 Hours (Table) 10/17/19 10:55 Blood Culture - Final Blood No Growth after 144 hours Assessment and Plan Plan: Chest x-ray: report reviewed CT scan - chest: report reviewed Assessment and Plan: Abnormal CT scan, chest: - Negative Pulmonary Embolism - Bilateral lung nodules which appear non-specific (inflammation versus metastatic disease) with somewhat prominent mediastinal adenopathy. - Defer tissue biopsy of mediastinal nodes to pulmonary medicine. Possibly via bronchoscopy Will discuss with pulmonology if planning for this versus repeat CT (per progress note). Bone lesion - The computed tomography scan mentions possible scattered small lytic bone lesions. - Bone scan negative for lytic lesions - No monoclonal proteins seen - PSA not elevated Bipolar: - Patient reports he falls often and is intense in his everyday activity - Psych consultation may be beneficial Plan: - patient to follow-up with pulmonology for repet CT imaging 3 months he is aware Defer to the admitting service and other consultants for management of his other medical issues
[2019-10-23] MEDS ORDERED: INSULIN ASPART (NovoLOG) 100 UNIT/ML VIAL SQ ONE (19:00)
[2019-10-23 19:43] LABS: Glucose,Whole Blood 289 mg/dL (75-99)
[2019-10-23 21:06] LABS: Glucose,Whole Blood 181 mg/dL (75-99)
[2019-10-23] MEDS: INSULIN DETEMIR (LEVEMIR) 100 UNIT/ML SYR SQ SCH (21:53)
[2019-10-23] MEDS: MELATONIN 5 MG TABLET PO SCH (21:53)
[2019-10-23] MEDS: PRAVASTATIN SODIUM 40 MG TAB PO SCH (21:54)
[2019-10-23] MEDS: MONTELUKAST 10 MG TAB PO SCH (21:54)
[2019-10-23] MEDS: traZODone HCL 100 MG TAB PO SCH (21:55)
[2019-10-23] MEDS: ALBUTEROL NEBULIZED 2.5 MG/3 ML INHALATION PRN (22:16)
[2019-10-24] MEDS: oxyCODONE-APAP 10-325MG 1 EACH TAB PO SCH ×4 (01:40→13:41)
[2019-10-24] MEDS: HYDROmorphone 1 MG/ML 1 ML SYRINGE IVP PRN ×3 (02:14→14:29)
[2019-10-24] MEDS: DEXAMETHASONE SOD PHOSPHATE 4 MG/ML 1 ML VIAL IV SCH ×2 (06:11→12:24)
[2019-10-24 06:20] VITALS: RESP 18
[2019-10-24] MEDS: ALBUTEROL NEBULIZED 2.5 MG/3 ML INHALATION PRN ×2 (07:26→10:51)
[2019-10-24] MEDS: lamoTRIgine 100 MG TAB PO SCH (07:42)
[2019-10-24] MEDS: DULoxetine HCL 30 MG CAPSULE.DR PO SCH (07:42)
[2019-10-24] MEDS: QUEtiapine 100 MG TAB PO SCH ×2 (07:42→12:24)
[2019-10-24] MEDS: amLODIPine 5 MG TAB PO SCH (07:42)
[2019-10-24] MEDS: FENOFIBRATE 160 MG TAB PO SCH (07:42)
[2019-10-24] MEDS: FAMOTIDINE 20 MG TAB PO SCH (07:42)
[2019-10-24] MEDS: GABAPENTIN 300 MG CAP PO SCH (07:42)
[2019-10-24] MEDS: METOPROLOL TARTRATE 25 MG TAB PO SCH (07:42)
[2019-10-24] MEDS: MULTIVITAMINS, THERA 1 EACH TAB PO SCH (07:42)
[2019-10-24] MEDS: NICOTINE 14MG/24HR PATCH TRANSDERM SCH (07:43)
[2019-10-24 07:47] LABS: Glucose,Whole Blood 311 mg/dL (75-99)
[2019-10-24] MEDS: BACLOFEN 10 MG TAB PO PRN (07:48)
[2019-10-24 07:58] LABS: Basophils % (A) 0 %; Eosinophils # (A) 0.1 k/uL (0-0.7); Eosinophils % (A) 1 %; HCT 42.3 % (39.0-53.0); HGB 13.4 gm/dL (13.0-17.5); Lymphocytes # (A) 1.4 k/uL (1.0-4.8); Lymphocytes % (A) 9 %; MCH 28.7 pg (25.0-35.0); MCHC 31.7 g/dL (31.0-37.0); MCV 90.7 fL (80.0-100.0); Mean Platelet Volume 7.1; Monocytes # (A) 0.5 k/uL (0-1.0); Monocytes % (A) 3 %; Neutrophils # (A) 14.1 k/uL (1.3-7.7); Neutrophils % (A) 87 %; Platelet Count 353 k/uL (150-450); RBC 4.66 m/uL (4.30-5.90); RDW 12.7 % (11.5-15.5); WBC 16.2 k/uL (3.8-10.6)
[2019-10-24 08:14] LABS: ALT 27 U/L (4-49); AST 30 U/L (17-59); African American GFR (CKD) >90 (>60 ml/min/1.73 sqM); Albumin 3.6 g/dL (3.5-5.0); Alkaline Phosphatase 125 U/L (38-126); Anion Gap 7 mmol/L; Blood Urea Nitrogen 29 mg/dL (9-20); Calcium 9.6 mg/dL (8.4-10.2); Carbon Dioxide 30 mmol/L (22-30); Chloride 98 mmol/L (98-107); Glucose 299 mg/dL (74-99); Non-African American GFR(CKD) >90 (>60 ml/min/1.73 sqM); Potassium 4.6 mmol/L (3.5-5.1); Sodium 135 mmol/L (137-145); Total Bilirubin 0.5 mg/dL (0.2-1.3); Total Protein 6.3 g/dL (6.3-8.2)
[2019-10-24] MEDS: INSULIN ASPART (NovoLOG) 100 UNIT/ML VIAL SQ SCH ×2 (08:34→12:49)
[2019-10-24 09:25] VITALS: BMI 31.6
--- NOTE | 2019-10-24 11:49 | P.DS ---
Providers Date of admission: 10/21/19 13:47 Expected date of discharge: 10/24/19 Attending physician: Giancarlo Escobar MD Consults: 10/17/19 09:11 Consult Physician Stat Consulting Provider: Parvez Sifuentes Consult Reason/Comments: Pneumonia, abnormal chest ct Do you want consulting provider notified?: Yes 10/17/19 11:40 Consult Physician Routine Consulting Provider: Srinivas Barger Consult Reason/Comments: Neck pain Do you want consulting provider notified?: Yes 10/17/19 16:34 Consult Physician Routine Consulting Provider: Ata Pritchard Consult Reason/Comments: lytic lesion in spine Do you want consulting provider notified?: Yes 10/21/19 08:14 Consult Physician Routine Consulting Provider: Huseyin Tineo Consult Reason/Comments: bipolar Do you want consulting provider notified?: Yes 10/23/19 10:25 Consult Physician Stat Consulting Provider: Tamar Reyes Consult Reason/Comments: pain management, uncontrolled back scapula fx Do you want consulting provider notified?: Yes Primary care physician: Jordon Wood Hospital Course: Patient is a 54-year-old male with insulin-dependent diabetes mellitus currently transitioning to a pump, chronic arthritis status post cervical fusion, GERD, hypertension, and obstructive sleep apnea on BiPAP who presented to the hospital complaints of right-sided severe shoulder pain. Patient underwent ORIF C7 burst fracture with cervical dissectomy and fusion on and was discharged on 10/13/2019. On arrival to the emergency department he was noted to be tachycardic with a heart rate of 113. Laboratory analysis showed an elevated d-dimer at 1.49, sodium 1:30, chloride 96, glucose 606, magnesium 1.5. In the emergency department he underwent a CTA of the chest which showed no evidence of acute pulmonary embolism, multifocal groundglass opacities as well as alveolar edema or develop any acute infiltrates, background mild to moderate emphysematous changes, scattered nonspecific bilateral subcentimeter nodules with follow-up CT in 6 month, and scattered suspicious lytic lesions throughout the visualized osseous structures differential includes metastatic disease versus multiple myeloma. Despite receiving multiple medications in the ER he continued to have significant right shoulder plain and arrangements were subsequently made for admission. He was also started on antibiotics for poss ible pneumonia. Pulmonary was consulted. He appeared to have a racing thoughts and difficulty with concentration. Initially he described right arm pain that he states started after his cervical spine surgery. He then states that he has had right arm pain for several months that worsened after his surgery. He states that the Horicon, gabapentin, and Cymbalta that he takes are not helping the pain. 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 His pain was controlled with Dilaudid as needed along with oxycodone, baclofen, and Valium. Orthopedic surgery was consulted and recommended further imaging to evaluate his neck, right knee and right scapular pain. MRI of the right scapula showed mild deformity of the inferior scapula related to a fracture that appeared to be consistent with old fracture. Right knee MRI showed comminuted nondisplaced proximal tibial fracture. He was given a knee brace. Cervical spine CT showed scoliosis, moderate multilevel anterior and posterior spurring, mild bilateral neural foraminal narrowing C3-C4, C4-C5 and postsurgical changes along with asymmetric prominence of the right thyroid lobe. Orthopedic surgery recommended no surgical intervention. Patient continued to complain of excruciating pain and was constantly requesting increase in IV narcotics. He was continued on gabapentin and Cymbalta. With regard to possible lytic lesions, oncology was consulted. Oncology recommended repeat CT chest for possible nodules that was seen on chest CTA. Bone scan and skeletal survey did not appear to be consistent with metastatic disease. Protein electrophoresis was negative. CA-19-9 was negative. PSA was negative. Oncology recommended no further workup. Psychiatry was consulted for history of bipolar disorder and recommended limiting narcotics as it could lead to a manic episode. He was started on insulin sliding scale for his diabetes mellitus along with continuation of long-acting insulin. Patient was seen and examined. No acute events overnight. Patient reports continued cervical neck pain along with right scapular pain. Wanting increased frequency of Dilaudid. He denies any chest pain, shortness of breath or palpitations. No nausea or vomiting. No fever or chills. Appears to be comfortably speaking to someone on the phone when examiner is not in the room. General: [non toxic], [mild distress], [appears at stated age] Derm: [warm], [dry] Head: [atraumatic], [normocephalic], [symmetric], cervical collar in place with midline scar Eyes: [EOMI], [no lid lag], [anicteric sclera] Mouth: [no lip lesion], [mucus membranes moist] Cardiovascular: [S1S2 reg], [tachycardic], [positive DP pulse bilateral], Lungs: [Scattered wheezing bilateral], [no rhonchi, no rales] , [no accessory muscle use] Abdominal: [soft], [ nontender to palpation], [no guarding], [no appreciable organomegaly] Ext: [no gross muscle atrophy], [no edema], [no contractures], tenderness to palpation over the medial scapula Neuro: [no focal neuro deficits] Psych: [Alert], [oriented], [appropriate affect] Intractable right shoulder pain, scapular fracture -Plans on DC home with 7 days of Percocet along with baclofen and Valium as needed -MRI of the scapula shows fracture of the inferior tip of the scapula with 1.5 cm posterior displacement -PT/OT evaluation -Consult orthopedic surgery Leukocytosis -Likely related to steroid therapy no signs of infection we'll continue to monitor Recent open reduction internal fixation a C7 burst fracture -Consult orthopedic surgery -CT cervical spine shows multilevel anterior and posterior spurring, mild bilateral neural foraminal narrowing C3-C4, C4-C5. -Pain control as above -Medrol dosepak on discharge -Continue with cervical collar Multiple thoracic lesions in conjunction with multiple pulmonary nodules -Question if this could be related to recurrent malignancy, multiple myeloma, or prior osteomyelitis -Consult oncology, recommends repeat CT chest in 3 months -Pulmonary recommendations appreciated -Bone scan and skeletal survey is not suspicious for metastatic bone cancer -PSA added by oncology is within normal limits -Protein electrophoresis shows no monoclonal paraprotein recognize Diabetes mellitus type 2 with hyperglycemia -Continue with long-acting and sliding scale insulin -Follow blood sugars -Last A1c 11.3 09/03/19 Hyponatremia, suspect pseudohyponatremia secondary to hyperglycemia -IV fluids -Recheck in AM Tobacco abuse -Smoking cessation Hypertension -Resume home meds Obstructive sleep apnea -BiPAP use Bipolar disorder with zachary - resume home psych meds -Psychiatry recommends tapering off narcotic pain medication as this can lead to manic episode [Patient has received an incredible amount of narcotic medication during this hospital admission. I do suspect that he is in pain given recent surgical p rocedure but there is some malingering. Patient to be discharged home today with Percocet, Valium and baclofen as needed. He will only get a seven-day supply. Also Medrol Dosepak. Follow-up with PCP within 3 days. Follow-up with orthopedic surgery within 1 week. He will need a repeat CT chest in 6 months to evaluate for progression of pulmonary nodules. This complex discharge took about 45 minutes to complete.] Pertinent Studies: Chest x-ray, chest CTA, skeletal survey, bone scan, knee x-ray, tibia-fibula x- ray, scapula x-ray, scapula MRI, tibia-fibula MRI, cervical spine CT Patient Condition at Discharge: Stable Plan - Discharge Summary Discharge Rx Participant: Yes New Discharge Prescriptions: New Baclofen [Lioresal] 10 mg PO TID PRN #21 tab PRN Reason: Muscle Spasm oxyCODONE-APAP 10-325MG [Percocet 10-325 mg] 1 - 2 each PO Q4H 7 Days #42 tab diazePAM [Valium] 5 mg PO QID PRN 7 Days #28 tab PRN Reason: Anxiety methylPREDNISolone [Medrol Dose Pack] 4 mg PO DIRECTED #1 pack Continue Fenofibrate Nanocrystallized [Fenofibrate] 145 mg PO DAILY Montelukast [Singulair] 10 mg PO HS Metoprolol Tartrate [Lopressor] 25 mg PO BID QUEtiapine FUMARATE [SEROquel] 300 mg PO HS lamoTRIgine 200 mg PO BID amLODIPine [Norvasc] 5 mg PO DAILY Multivitamins, Thera [Multivitamin (formulary)] 1 tab PO DAILY Ergocalciferol [Vitamin D2 (DRISDOL)] 50,000 unit PO SA Insulin Glargine,Hum.rec.anlog [Basaglar Kwikpen U-100] 75 unit SQ HS Melatonin 10 mg PO HS Albuterol Sulfate [Ventolin HFA] 1 - 2 puff INHALATION RT-Q6H PRN PRN Reason: Shortness Of Breath Diclofenac Sodium Gel [Voltaren Gel] 2 gm TOPICAL QID PRN PRN Reason: ARMS Dicyclomine [Bentyl] 20 mg PO Q6H PRN PRN Reason: CRAMPS DULoxetine HCL [Cymbalta] 30 mg PO BID Famotidine 40 mg PO DAILY QUEtiapine [SEROquel] 100 mg PO BID@0800,1200 traZODone HCL [Desyrel] 100 mg PO HS INSULIN ASPART (NovoLOG) [NovoLOG (formulary)] See Protocol SQ ACHS Pravastatin Sodium [Pravachol] 40 mg PO HS #30 tab Gabapentin [Neurontin] 300 mg PO BID Discontinued Meloxicam [Mobic] 7.5 mg PO BID PRN #0 PRN Reason: Pain HYDROcodone/APAP 7.5-325MG [Horicon 7.5-325] 1 tab PO Q4H PRN 7 Days #42 tab PRN Reason: Pain Discharge Medication List Fenofibrate Nanocrystallized [Fenofibrate] 145 mg PO DAILY 08/07/13 [History] Metoprolol Tartrate [Lopressor] 25 mg PO BID 08/07/13 [History] Montelukast [Singulair] 10 mg PO HS 08/07/13 [History] QUEtiapine FUMARATE [SEROquel] 300 mg PO HS 10/01/16 [History] lamoTRIgine 200 mg PO BID 10/01/16 [History] Multivitamins, Thera [Multivitamin (formulary)] 1 tab PO DAILY 10/22/16 [History] amLODIPine [Norvasc] 5 mg PO DAILY 10/22/16 [History] Ergocalciferol [Vitamin D2 (DRISDOL)] 50,000 unit PO SA 10/31/18 [History] Insulin Glargine,Hum.rec.anlog [Basaglar Kwikpen U-100] 75 unit SQ HS 10/31/18 [History] Melatonin 10 mg PO HS 10/31/18 [History] Albuterol Sulfate [Ventolin HFA] 1 - 2 puff INHALATION RT-Q6H PRN 09/02/19 [History] DULoxetine HCL [Cymbalta] 30 mg PO BID 09/02/19 [History] Diclofenac Sodium Gel [Voltaren Gel] 2 gm TOPICAL QID PRN 09/02/19 [History] Dicyclomine [Bentyl] 20 mg PO Q6H PRN 09/02/19 [History] Famotidine 40 mg PO DAILY 09/02/19 [History] INSULIN ASPART (NovoLOG) [NovoLOG (formulary)] See Protocol SQ ACHS 09/02/19 [History] QUEtiapine [SEROquel] 100 mg PO BID@0800,1200 09/02/19 [History] traZODone HCL [Desyrel] 100 mg PO HS 09/02/19 [History] Pravastatin Sodium [Pravachol] 40 mg PO HS #30 tab 09/04/19 [Rx] Gabapentin [Neurontin] 300 mg PO BID 10/06/19 [History] Baclofen [Lioresal] 10 mg PO TID PRN #21 tab 10/24/19 [Rx] diazePAM [Valium] 5 mg PO QID PRN 7 Days #28 tab 10/24/19 [Rx] methylPREDNISolone [Medrol Dose Pack] 4 mg PO DIRECTED #1 pack 10/24/19 [Rx] oxyCODONE-APAP 10-325MG [Percocet 10-325 mg] 1 - 2 each PO Q4H 7 Days #42 tab 10/24/19 [Rx] Follow up Appointment(s)/Referral(s): [facility], [NON-STAFF] - As Needed Srinivas Barger DO [Doctor of Osteopathic Medicine] - 1 Week Gerald Magallon DO [Doctor of Osteopathic Medicine] - 1 Week Jordon Wood MD [Primary Care Provider] - 1-2 days Activity/Diet/Wound Care/Special Instructions: Please contact [employer] regarding shower grab bars: #[phone]. Please call Medicaid in order to arrange medical rides to appointments. Medicaid will need at least 2-3 days notice prior to appointment. Diet: Diabetic Follow-up PCP within 2 days of discharge. Follow-up with orthopedic surgery within 7 days of discharge. Take all medications as advised. Note to PCP: Repeat CT chest in 6 months to evaluate for any changes in pulmonary nodules. Discharge Disposition: HOME SELF-CARE
--- NOTE | 2019-10-24 12:02 | P.PN ---
Progress Note - Text Progress Note Date: 10/24/19 The patient is seen and examined again today at bedside. I appreciate Dr. Washburn note. I had a long discussion with the patient again today at bedside. He is actually more mobile space pain was better controlled overnight last night. He is not having new changes in his neurologic status and his upper or lower extremities today. On exam his incision site is clean and dry. His neck is soft and supple. Several extremity some weakness bilaterally worse on the left than the right. His lower extremities have sustained dorsal flexion plantar flexion and EHL intact. Assessment and plan Intractable pain at his right shoulders and his right scapula Status post open reduction internal fixation of C7 burst fracture with fusion and C 6 to T1 with corpectomy of C7. Right scapular fracture Right proximal tibia fracture The patient's construct his cervical thoracic spine appears to be stable. He is not having neurologic decline. His scapular fracture and tibial fracture. Be stable and healing appropriately. Overall the patient's main issue has been his pain control. His long issues with substance abuse and has been difficult to control his pain overall. He has a plan for weaning himself down off of his pain medications. Given his long- term use think that the plan he has is somewhat reasonable. He would like to have Percocet 10 mg 1-2 tablets every 4 hours as needed for the next week and then taper down to 1-2 tablets every 6 hours as needed for a week and then one t ablet every 6 hours as needed for a week and then tapering further thereafter. Overall we will continue the baclofen and the Valium and the steroid for short course. He is still required some Dilaudid IV for breakthrough pain here in Hospital. If he is able to stay off of the dilated then we will be able get him home. It is likely that he will need to stay to morning and be discharged home on Saturday. I told him I would be okay to continue to follow him weekly to manage his tapering pain course.
[2019-10-24 12:32] LABS: Glucose,Whole Blood 394 mg/dL (75-99)
[2019-10-24 13:06] VITALS: BP 136/83; TEMP 98
[2019-10-24 15:23] VITALS: PULSE 104
--- NOTE | 2019-10-27 08:01 | CDI ---
Documentation Clarification Form Date: 10/27/19 From: Brigette Nguyen Phone: If you have a question about this query, please contact Ade Barnett Management Development Specialist at [phone] between 8am and 5pm. Admit Date: 10/21/19 Discharge Date:10/24/19 Patient Name: Sergio Martini Visit Number: [id number] ATTENTION: The Clinical Documentation Specialists (CDI) and [facility] Coding Staff appreciate your assistance in clarifying documentation. Please respond to the clarification below the line at the bottom and electronically sign. The CDI & [facility] Coding staff will review the response and follow-up if needed. Please note: Queries are made part of the Legal Health Record. If you have any questions, please contact the author of this message via ITS. Dear Dr. Montano Patient has been diagnosed with a fracture of the inferior tip of the right scapula and right proximal tibia fracture. History/Risk Factors: History of fall, cervical fracture with open reduction internal fixation from C6 to C11, multiple thoracic lesions, pulmonary nodules. Clinical Indications: Pain in right shoulder, right knee pain X-Ray Results: RT Scapula - Evidence of fracture the anterior tip of the scapula with 1.5 cm of posterior displacement which may represent pathologic fracture given osseous changes described at the proximal tibia and other findings found on bone scan and CT imaging. RT Tibia-fibula - Progressive abnormal sclerosis along the proximal tibial metaphysis and interval development of subtle periostitis along the anterior lateral cortex which may represent pathologic fracture. Treatment: Consult 10/[address] Barger documented - Deformity of the right inferior scapula which may represent pathologic fracture. Right lower extremity pain, improving. Medications: IV Dilaudid, IV Toradol In your professional opinion, please specify the following: Etiology of tibia and scapula fracture: Traumatic Pathological (specify cause): Neoplastic disease Osteoporosis Other (please specify): Unable to determine Episode of care: Initial Subsequent with delayed healing Subsequent with malunion Subsequent with nonunion Sequela unable to determine, orthopedic surgery would be better to determine this MTDD
--- NOTE | 2019-10-27 08:15 | CDI ---
Documentation Clarification Form Date: 10/27/19 From: Brigette Nguyen Phone: If you have a question about this query, please contact Ade Barnett, Donor Relations Associate at [phone] between 8am and 5pm. Admit Date: 10/21/19 Discharge Date:10/24/19 Patient Name: Sergio Martini Visit Number: [id number] ATTENTION: The Clinical Documentation Specialists (CDI) and [facility] Coding Staff appreciate your assistance in clarifying documentation. Please respond to the clarification below the line at the bottom and electronically sign. The CDI & [facility] Coding staff will review the response and follow-up if needed. Please note: Queries are made part of the Legal Health Record. If you have any questions, please contact the author of this message via ITS. Dear Dr. Montano Your patient has a documented diagnosis of pneumonia - which may lack sufficient clinical evidence/support. History/Risk Factors: Chronic cough, chest pain, pulmonary nodules, thoracic lesions Clinical Indicators: Developing infiltrate on CT scan Vital signs: T. 98.2, P. 113, R. 20, BP 134/86 WBC/Left Shift: 10.5/79% X-ray: Chronic changes without new suspicious acute pulmonary process CT Chest: Matter multifocal areas of ground glass opacity could reflect multifocal alveolar edema and/or developing acute infiltrates. Correlate clinically. Lung/breathing assessment: Clear to auscultation bilateral, no rhonchi, no rales, no wheeze, no accessory muscle use. Treatment: Antibiotics: IV Zithromax 500 mg once, IV Rocephin 1 gm once O2: Room air Breathing tx: Ventolin 2.5 mg x 3 treatments Based on the clinical evidence and your professional judgment, do you feel pneumonia is a valid diagnosis? Yes, pneumonia present/active during this admission as evidence by (additional clinical support): No, pneumonia was ruled out. Other (please specify diagnosis) Unable to determine PNA ruled out MTDD
--- NOTE | 2019-10-27 14:55 | CDI ---
Documentation Clarification Form Date: 10/27/19 From: Brigette Nguyen Phone: If you have a question about this query, please contact Ade Barnett Provider Enrollment Specialist at [phone] between 8am and 5pm. Admit Date: 10/21/19 Discharge Date:10/24/19 Patient Name: Sergio Martini Visit Number: [id number] ATTENTION: The Clinical Documentation Specialists (CDI) and [facility] Coding Staff appreciate your assistance in clarifying documentation. Please respond to the clarification below the line at the bottom and electronically sign. The CDI & [facility] Coding staff will review the response and follow-up if needed. Please note: Queries are made part of the Legal Health Record. If you have any questions, please contact the author of this message via ITS. Dear Dr. Barger Patient has been diagnosed with a fracture of the inferior tip of the right scapula and right proximal tibia fracture. History/Risk Factors: History of fall, cervical fracture with open reduction internal fixation from C6 to C11, multiple thoracic lesions, pulmonary nodules. Documentation in you 10/19 progress note - Deformity of the right inferior scapula which may represent pathologic fracture. Right lower extremity pain, improving. Clinical Indications: Pain in right shoulder, right knee pain X-Ray Results: RT Scapula - Evidence of fracture the anterior tip of the scapula with 1.5 cm of posterior displacement which may represent pathologic fracture given osseous changes described at the proximal tibia and other findings found on bone scan and CT imaging. RT Tibia-fibula - Progressive abnormal sclerosis along the proximal tibial metaphysis and interval development of subtle periostitis along the anterior lateral cortex which may represent pathologic fracture. Treatment: Medications: IV Dilaudid, IV Toradol In your professional opinion, please specify the following: Etiology of tibia and scapula fracture: Traumatic Pathological (specify cause): Neoplastic disease Osteoporosis Other (please specify): Unable to determine Episode of care: Initial Subsequent with delayed healing Subsequent with malunion Subsequent with nonunion Sequela Fractures of the scapula and tibia are presumed to be traumatic as the patient had a traumatic fall. he may require further workup in the future if not prgressing appropriately MTDD
== END 2019-10-24 16:11 | disposition home health service (06) | DRG 565 ==
LOC: EC 05:51 → 4SSUR 08:50 → 5NMEDONC 10-19 19:05 → OBSVTOIN 10-21 13:47
PROVIDERS: ADMIT Internal Medicine; ATTEND Internal Medicine
DX: S42.191A Fracture of other part of scapula, right shoulder, initial encounter for closed fracture (principal); S82.191A Other fracture of upper end of right tibia, initial encounter for closed fracture; E87.1 Hypo-osmolality and hyponatremia; F31.10 Bipolar disorder, current episode manic without psychotic features, unspecified; K86.3 Pseudocyst of pancreas; E11.40 Type 2 diabetes mellitus with diabetic neuropathy, unspecified; E11.65 Type 2 diabetes mellitus with hyperglycemia; E66.01 Morbid (severe) obesity due to excess calories; E83.42 Hypomagnesemia; F17.200 Nicotine dependence, unspecified, uncomplicated; F41.9 Anxiety disorder, unspecified; G47.33 Obstructive sleep apnea (adult) (pediatric); I10 Essential (primary) hypertension; J43.9 Emphysema, unspecified; M19.90 Unspecified osteoarthritis, unspecified site; M41.9 Scoliosis, unspecified; T38.0X5A Adverse effect of glucocorticoids and synthetic analogues, initial encounter; G89.29 Other chronic pain; K21.9 Gastro-esophageal reflux disease without esophagitis; R45.1 Restlessness and agitation; R59.1 Generalized enlarged lymph nodes; R79.89 Other specified abnormal findings of blood chemistry; M54.9 Dorsalgia, unspecified; D72.829 Elevated white blood cell count, unspecified; R07.9 Chest pain, unspecified; F11.21 Opioid dependence, in remission; M89.9 Disorder of bone, unspecified; Z91.81 History of falling; Z79.1 Long term (current) use of non-steroidal anti-inflammatories (NSAID); Z79.4 Long term (current) use of insulin; Z79.82 Long term (current) use of aspirin; Z79.899 Other long term (current) drug therapy; Z98.1 Arthrodesis status; Z88.8 Allergy status to other drugs, medicaments and biological substances; Z90.49 Acquired absence of other specified parts of digestive tract; Z86.14 Personal history of Methicillin resistant Staphylococcus aureus infection; Z68.31 Body mass index [BMI] 31.0-31.9, adult; Z98.890 Other specified postprocedural states; Z99.89 Dependence on other enabling machines and devices; Z96.41 Presence of insulin pump (external) (internal); Z82.49 Family history of ischemic heart disease and other diseases of the circulatory system; W19.XXXA Unspecified fall, initial encounter
CPT/HCPCS: 36415; 71046; 71275; 72125; 77075; 78306; 80048; 80053; 82306; 83605; 83735; 83880; 83883; 83921; 84100; 84153; 84165; 84484; 85025; 85027; 85379; 85610; 85730; 86301; 86334; 87040; 93005; 94640; 96361; 96365; 96375; 99285

== ENCOUNTER 2019-10-30 18:18 | Inpatient (IN) | payer MEDICARE, OTHER ==
[2019-10-30] MEDS ORDERED: HYDROmorphone 1 MG/ML 1 ML SYRINGE IVP STA (19:03)
--- NOTE | 2019-10-30 19:10 | ED ---
General Adult HPI - General Chief complaint: Neck Pain/Injury Stated complaint: Neck pain, Diabetic, Dehydration Time Seen by Provider: 10/30/19 18:39 Source: patient, Caregiver Mode of arrival: wheelchair Limitations: physical limitation - History of Present Illness Initial comments: Dictation was produced using [email or web address] dictation software. please excuse any grammatical, word or spelling errors. This patient was cared for during a federal and state declared state of emergency secondary to Covid 19 Chief Complaint: 54-year-old male recently discharged from the hospital presents after fall and debility History of Present Illness: 54-year-old male presents to the emergency department after fall. Patient was just discharged from the hospital 6 days ago. Patient was admitted for severe shoulder pain. Patient had surgery for his cervical spine approximately 19 days ago. He was seen in the emergency department recently where a CT angios the chest performed showing abnormal parenchymal findings. He was found have significant pain and was admitted for intractable pain. He was evaluated by orthopedic surgery and showed abnormality to the scapula consistent with old fracture. He was evaluated by oncology with findings to suggest cancer. He was evaluated by psychiatry for bipolar disorder. Patient's caretakers at bedside. She reports that he fell today landing on his back. Patient complains of neck pain and right scapular pain. States that the pain is worse than when he was admitted to the hospital. Patient denies any bleeding. Denies any loss of consciousness. Caretakers at bedside reports that patient has not been doing well at home and feels that he needs rehabilitation admission. Patient states that the pain is excruciating. Denies any numbness and paresthesias to the arms or legs. States that he can't take care of himself because the pain is so bad. The ROS documented in this emergency department record has been reviewed and confirmed by me. Those systems with pertinent positive or negative responses have been documented in the HPI. All other systems are other negative and/or noncontributory. PHYSICAL EXAM: General Impression: Alert and oriented x3, not in acute distress, cervical c ollar in place HEENT: Normocephalic atraumatic, extra-ocular movements intact, pupils equal and reactive to light bilaterally, mucous membranes moist. Cardiovascular: Heart regular rate and rhythm Chest: Able to complete full sentences, no retractions, no tachypnea Abdomen: abdomen soft, non-tender, non-distended, no organomegaly Musculoskeletal: Pulses present and equal in all extremities, no peripheral edema Motor: no focal deficits noted Neurological: CN II-XII grossly intact, no focal motor or sensory deficits noted Skin: Intact with no visualized rashes Psych: Anxious ED course: 54-year-old male presents with acute on chronic neck and shoulder pain. Patient's history of chronic pain to that area. He did fall today and exacerbated his chronic pain. Vital signs upon arrival shows heart rate of 125, oxygen saturation 90% on room air. Patient is CT angios the last time he was here was negative for pulmonary emboli.Computed tomography scan of the head and C-spine was obtained. There is dislocation of the anterior cervical fusion and spacer device previously located at C7. The device appears to be anterior and left lateral spinal vertebral column. There is also a fracture of the left C6 level. Laboratory evaluation shows hyperglycemia. Rest of labs are unremarkable. He does have mild hyponatremia pseudohyponatremia from hyperglycemia. Discussed patient case with Dr. Granados who agrees for patient to be admitted. Several minutes later did discuss patient case with Dr. Barger who is patient's primary surgeon. Dr. Barger will come to the bedside to evaluate patient and likely take him to the operating room for surgical intervention. Patient be maintained nothing by mouth. EKG interpretation: Ventricular rate 127, sinus tachycardia,. 1:30, QRS 12, QTc 467. No SC prolongation, no QTC prolongation, no ST or T-wave changes noted. EKG compared to 10/17/2019 showing no changes. Overall, this EKG is unremarkable - Related Data Home Medications Medication Instructions Recorded Confirmed RX: Fenofibrate Nanocrystallized 145 mg PO DAILY 08/07/13 10/30/19 [Fenofibrate] RX: Metoprolol Tartrate [Lopressor] 25 mg PO BID 08/07/13 10/30/19 RX: Montelukast [Singulair] 10 mg PO HS 08/07/13 10/30/19 RX: QUEtiapine FUMARATE [SEROquel] 300 mg PO HS 10/01/16 10/30/19 RX: lamoTRIgine 200 mg PO BID 10/01/16 10/30/19 RX: Multivitamins, Thera 1 tab PO DAILY 10/22/16 10/30/19 [Multivitamin (formulary)] RX: amLODIPine [Norvasc] 5 mg PO DAILY 10/22/16 10/30/19 RX: Ergocalciferol [Vitamin D2 50,000 unit PO SA 10/31/18 10/30/19 (DRISDOL)] RX: Insulin Glargine,Hum.rec.anlog 75 unit SQ HS 10/31/18 10/30/19 [Basaglar Kwikpen U-100] RX: Melatonin 10 mg PO HS 10/31/18 10/30/19 RX: Albuterol Sulfate [Ventolin 2 puff INHALATION RT-Q4H PRN 09/02/19 10/30/19 HFA] RX: DULoxetine HCL [Cymbalta] 30 mg PO BID 09/02/19 10/30/19 RX: Diclofenac Sodium Gel 2 gm TOPICAL QID PRN 09/02/19 10/30/19 [Voltaren Gel] RX: Dicyclomine [Bentyl] 20 mg PO Q6H PRN 09/02/19 10/30/19 RX: Famotidine 40 mg PO DAILY 09/02/19 10/30/19 RX: INSULIN ASPART (NovoLOG) See Protocol SQ QID 09/02/19 10/30/19 [NovoLOG (formulary)] RX: QUEtiapine [SEROquel] 100 mg PO BID@0800,1200 09/02/19 10/30/19 RX: traZODone HCL [Desyrel] 100 mg PO HS 09/02/19 10/30/19 RX: Gabapentin [Neurontin] 300 mg PO BID 10/06/19 10/30/19 RX: oxyCODONE-APAP 10-325MG 1 - 2 tab PO Q4H PRN 10/30/19 10/30/19 [Percocet 10-325 mg] Previous Rx's Medication Instructions Recorded RX: Pravastatin Sodium [Pravachol] 40 mg PO HS #30 tab 09/04/19 RX: Baclofen [Lioresal] 10 mg PO TID PRN #21 tab 10/24/19 RX: diazePAM [Valium] 5 mg PO QID PRN 7 Days #28 tab 10/24/19 Allergies Allergy/AdvReac Type Severity Reaction Status Date / Time haloperidol [From Haldol] AdvReac Hallucinati Verified 10/30/19 20:27 ons haloperidol lactate AdvReac Hallucinati Verified 10/30/19 20:27 [From Haldol] ons Review of Systems ROS Statement: Those systems with pertinent positive or pertinent negative responses have been documented in the HPI. ROS Other: All systems not noted in ROS Statement are negative. 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, pancreatitis History of Any Multi-Drug Resistant Organisms: MRSA Date of last positivie culture/infection: 11/03/2008 MDRO Source:: spine Past Surgical History: Cholecystectomy Additional Past Surgical History / Comment(s): spinal fusion at L4 and L5, pancreatic surgery for pseudocyst w/stent Past Anesthesia/Blood Transfusion Reactions: No Reported Reaction Past Psychological History: Anxiety, Bipolar, Depression Smoking Status: Current every day smoker Past Alcohol Use History: None Reported Past Drug Use History: None Reported - Past Family History Mother Family Medical History: Hypertension Additional Family Medical History / Comment(s): Pt states mother had no health problems. Father Family Medical History: No Reported History Additional Family Medical History / Comment(s): pt stated his father is - had no medicals problems and of natural causes. General Exam Limitations: physical limitation Course Vital Signs 10/30/19 10/30/19 10/30/19 18:21 19:47 20:47 Temperature 98.5 F Pulse Rate 125 H 122 H 120 H Respiratory 18 18 18 Rate Blood Pressure 138/101 156/85 152/93 O2 Sat by Pulse 93 L 95 95 Oximetry 10/30/19 21:53 Temperature Pulse Rate 123 H Respiratory 18 Rate Blood Pressure 148/99 O2 Sat by Pulse 98 Oximetry Medical Decision Making - Lab Data Result diagrams: 10/30/19 19:12 10/30/19 19:12 Lab Results 10/30/19 10/30/19 10/30/19 Range/Units 19:12 19:12 19:12 WBC 19.2 H (3.8-10.6) k/uL RBC 5.31 (4.30-5.90) m/uL Hgb 15.4 (13.0-17.5) gm/dL Hct 47.2 (39.0-53.0) % MCV 88.8 (80.0-100.0) fL MCH 28.9 (25.0-35.0) pg MCHC 32.6 (31.0-37.0) g/dL RDW 12.8 (11.5-15.5) % Plt Count 450 (150-450) k/uL Neutrophils % 86 % Lymphocytes % 8 % Monocytes % 4 % Eosinophils % 1 % Basophils % 0 % Neutrophils # 16.4 H (1.3-7.7) k/uL Lymphocytes # 1.6 (1.0-4.8) k/uL Monocytes # 0.8 (0-1.0) k/uL Eosinophils # 0.1 (0-0.7) k/uL Basophils # 0.1 (0-0.2) k/uL PT 11.1 (9.0-12.0) sec INR 1.1 (<1.2) APTT 25.9 (22.0-30.0) sec Sodium 128 L (137-145) mmol/L Potassium 4.7 (3.5-5.1) mmol/L Chloride 90 L (98-107) mmol/L Carbon Dioxide 24 (22-30) mmol/L Anion Gap 14 mmol/L BUN 33 H (9-20) mg/dL Creatinine 0.85 (0.66-1.25) mg/dL Est GFR (CKD-EPI)AfAm >90 (>60 ml/min/1.73 sqM) Est GFR (CKD-EPI)NonAf >90 (>60 ml/min/1.73 sqM) Glucose 488 H (74-99) mg/dL POC Glucose (mg/dL) (75-99) mg/dL POC Glu [employer]er ID Calcium 10.1 (8.4-10.2) mg/dL 10/30/19 Range/Units 19:15 WBC (3.8-10.6) k/uL RBC (4.30-5.90) m/uL Hgb (13.0-17.5) gm/dL Hct (39.0-53.0) % MCV (80.0-100.0) fL MCH (25.0-35.0) pg MCHC (31.0-37.0) g/dL RDW (11.5-15.5) % Plt Count (150-450) k/uL Neutrophils % % Lymphocytes % % Monocytes % % Eosinophils % % Basophils % % Neutrophils # (1.3-7.7) k/uL Lymphocytes # (1.0-4.8) k/uL Monocytes # (0-1.0) k/uL Eosinophils # (0-0.7) k/uL Basophils # (0-0.2) k/uL PT (9.0-12.0) sec INR (<1.2) APTT (22.0-30.0) sec Sodium (137-145) mmol/L Potassium (3.5-5.1) mmol/L Chloride (98-107) mmol/L Carbon Dioxide (22-30) mmol/L Anion Gap mmol/L BUN (9-20) mg/dL Creatinine (0.66-1.25) mg/dL Est GFR (CKD-EPI)AfAm (>60 ml/min/1.73 sqM) Est GFR (CKD-EPI)NonAf (>60 ml/min/1.73 sqM) Glucose (74-99) mg/dL POC Glucose (mg/dL) 475 H (75-99) mg/dL POC Glu Soccer [employer] As[employer]er ID Eileen Mena Calcium (8.4-10.2) mg/dL Disposition Clinical Impression: Neck fracture Disposition: ADMITTED IP TO THIS HOSP Condition: Critical Decision Time: 22:26
[2019-10-30 19:18] LABS: Glucose,Whole Blood 475 mg/dL (75-99)
--- NOTE | 2019-10-30 19:21 | XR ---
EXAMINATION TYPE: XR chest 1V portable DATE OF EXAM: 10/30/2019 COMPARISON: 10/17/2019 INDICATION: Fall TECHNIQUE: Single frontal view of the chest is obtained. FINDINGS: The heart size is normal. The pulmonary vasculature is normal. The lungs are clear. IMPRESSION: 1. No acute pulmonary process.
[2019-10-30 19:29] LABS: Basophils # (A) 0.1 k/uL (0-0.2); Basophils % (A) 0 %; Eosinophils # (A) 0.1 k/uL (0-0.7); Eosinophils % (A) 1 %; HCT 47.2 % (39.0-53.0); HGB 15.4 gm/dL (13.0-17.5); Lymphocytes # (A) 1.6 k/uL (1.0-4.8); Lymphocytes % (A) 8 %; MCH 28.9 pg (25.0-35.0); MCHC 32.6 g/dL (31.0-37.0); MCV 88.8 fL (80.0-100.0); Mean Platelet Volume 7.9; Monocytes # (A) 0.8 k/uL (0-1.0); Monocytes % (A) 4 %; Neutrophils # (A) 16.4 k/uL (1.3-7.7); Neutrophils % (A) 86 %; Platelet Count 450 k/uL (150-450); RBC 5.31 m/uL (4.30-5.90); RDW 12.8 % (11.5-15.5); WBC 19.2 k/uL (3.8-10.6)
[2019-10-30 19:42] LABS: African American GFR (CKD) >90 (>60 ml/min/1.73 sqM); Anion Gap 14 mmol/L; Blood Urea Nitrogen 33 mg/dL (9-20); Calcium 10.1 mg/dL (8.4-10.2); Carbon Dioxide 24 mmol/L (22-30); Chloride 90 mmol/L (98-107); Glucose 488 mg/dL (74-99); Non-African American GFR(CKD) >90 (>60 ml/min/1.73 sqM); Potassium 4.7 mmol/L (3.5-5.1); Sodium 128 mmol/L (137-145)
[2019-10-30 19:44] LABS: INR 1.1 (<1.2); Partial Thromboplastin Time 25.9 sec (22.0-30.0); Prothrombin Time 11.1 sec (9.0-12.0)
[2019-10-30] MEDS ORDERED: INSULIN REGULAR 100 UNIT/ML VIAL IV ONE (19:51)
[2019-10-30] MEDS ORDERED: SODIUM CHLORIDE 0.9% 1,000 ML IV STA (19:52)
[2019-10-30] MEDS ORDERED: NALOXONE 0.4 MG/ML 1 ML VIAL IV PRN (21:55)
[2019-10-30] MEDS ORDERED: HYDROmorphone 2 MG TAB PO PRN (21:55)
[2019-10-30] MEDS ORDERED: ONDANSETRON 4 MG/2 ML VIAL IVP PRN (21:55)
--- NOTE | 2019-10-30 22:20 | CT ---
EXAMINATION TYPE: CT brain kareenine wo con DATE OF EXAM: 10/30/2019 COMPARISON: 10/21/2019 HISTORY: fall, recent cervical injury CT DLP: 1655.9 mGycm, Automated exposure control for dose reduction was used. CONTRAST: Patient injected with 0 mL of Isovue 300. CT of the brain is performed utilizing 3 mm thick sections through the posterior fossa and 3 mm thick sections through the remaining calvarium. Study is performed within 24 hours of arrival to the hospital. No abnormal hyperdensity is present to suggest an acute intracranial hemorrhage. No mass lesion is evident. No acute infarcts are evident. Ventricles and sulci are appropriate for the patient age. Paranasal sinuses and mastoid air cells within the [id number] are clear. IMPRESSIONS: 1. No acute intracranial process. CT cervical spine. COMPARISON: None CT of the cervical spine is performed in the axial plane at 2 mm thick sections. Reconstructed image s in the coronal, and sagittal plane are reviewed on the computer. There is dislocation of the anterior cervical fusion plate and fixation device. This appears unstable compared to the recent examination. Recommend limited motion. Report was called to Dr. Mora by Dr Kranthi Bundy by telephone [id number] hours at the time of preliminary interpretation. Endplate spurring from the inferior endplate of C3 is evident. Small anterior vertebral body spurs ar e present at C3-4. Uncovertebral joint hypertrophy is present C5-3-4 with moderate foraminal stenosis . Uncovertebral joint hypertrophy at C4-5 has left foraminal stenosis. Some endplate spurring superio r endplate of C5 is present. Inferior endplate C5 spurring is present in the right paracentral region . No spinal canal stenosis is present. There is been a prior C6 through T1 fusion with a spacer placed. This plate is anterior laterally dis placed away from the vertebral bodies. The orientation of the spacer device appears horizontal wherea s was more vertical on the previous exam. Hardware appears to be within the prevertebral soft tissues with some contact with the T1 vertebral level. There is a fracture of the left posterior lamina of C6. Additional reformatted images are obtained. Posterior right C6 endplate spurring is present which may has some extension to the spinal canal. No spinal canal stenosis is present. Neural foramen appear p atent. IMPRESSIONS: 1. Dislocation of the anterior cervical fusion and spacer device previously located C7 This is anteri or and left lateral spinal vertebral column. There is increased kyphosis at the C6-C7vel compared to the prior exam. Should be treated as an unstable fracture. 2. Fracture of the left C6 lamina.
[2019-10-30] MEDS: HYDROmorphone 1 MG/ML 1 ML SYRINGE IVP PRN (22:22)
[2019-10-30] MEDS: SODIUM CHLORIDE 0.9% 1,000 ML IV SCH (22:26)
[2019-10-30 22:57] LABS: Glucose,Whole Blood 238 mg/dL (75-99)
--- NOTE | 2019-10-30 23:49 | P.HPOR ---
History of Present Illness H&P Date: 10/30/19 Chief Complaint: Neck pain Visit 54-year-old male who is well known to our service. We did surgery on his cervical spine just a few weeks ago on October 10 for his traumatic T7 burst fracture. He underwent anterior cervical over reduction internal fixation with corpectomy of C7 and fusion from C6 to T1. He was in the hospital for several days. His last week for pain control around his right scapula and with base of his neck. His neurologic status had been compromised at the time of his injury and he fell and he had weakness at his extremities particularly his left upper extremity prior to his surgical corpectomy and fusion. Postoperatively he had some improvement of the motion and strength his left upper extremity and was overall making progress with his mobilization. Despite his difficulty with pain control he is able to be discharged home with oral medications. Apparently he was having limited activity at home. In the hospital we had some difficulty wi th his compliance in terms of his activity and usage of his collar. We difficulty with maintaining his pain under control despite significant efforts with our service and the medicine service as well. Apparently this evening he was at home and had a witnessed fall. His roommate was with him. Apparently patient fell backwards. He says that he hit his head Against the banister and had significant pain in his neck. He presented to the emergency room. He had further evaluation he did not seem to have any new neurologic change with continued to have weakness at his extremities particularly his left upper extremity. His incision site is anterior neck looked okay. He was talking conversant and was not short of breath. He had further evaluation was found to have displacement of the internal fixation and graft at C6 to T1. Patient remained in his hard cervical collar and was flat supine in bed on bedrest and I saw him in the emergency room. He continues have some weakness of his left upper extremity. It is not changed since the time of his postoperative course and discharge from the hospital a few days ago. He denies fevers chills. He says he has been having great trouble eating. He says his pain is difficult control. But he has been on a plan to try to reduce his Percocet use and has been trying to follow through with this. He denies new changes in his upper extremities or lower extremities. He says he tripped when he fell. He denies loss of consciousness. Review of Systems As stated per HPI. Denies new changes in neurologic status tonight. Denies changing his breathing. Denies loss of consciousness. 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, pancreatitis History of Any Multi-Drug Resistant Organisms: MRSA Date of last positivie culture/infection: 11/03/2008 MDRO Source:: spine Past Surgical History: Cholecystectomy Additional Past Surgical History / Comment(s): spinal fusion at L4 and L5, pancreatic surgery for pseudocyst w/stent Past Anesthesia/Blood Transfusion Reactions: No Reported Reaction Past Psychological History: Anxiety, Bipolar, Depression Smoking Status: Current every day smoker Past Alcohol Use History: None Reported Past Drug Use History: None Reported - Past Family History Mother Family Medical History: Hypertension Additional Family Medical History / Comment(s): Pt states mother had no health problems. Father Family Medical History: No Reported History Additional Family Medical History / Comment(s): pt stated his father is - had no medicals problems and of natural causes. Medications and Allergies Home Medications Medication Instructions Recorded Confirmed Type Fenofibrate Nanocrystallized 145 mg PO DAILY 08/07/13 10/30/19 History [Fenofibrate] Metoprolol Tartrate [Lopressor] 25 mg PO BID 08/07/13 10/30/19 History Montelukast [Singulair] 10 mg PO 08/07/13 10/30/19 History QUEtiapine FUMARATE [SEROquel] 300 mg PO 10/01/16 10/30/19 History lamoTRIgine 200 mg PO BID 10/01/16 10/30/19 History Multivitamins, Thera [Multivitamin 1 tab PO DAILY 10/22/16 10/30/19 History (formulary)] amLODIPine [Norvasc] 5 mg PO DAILY 10/22/16 10/30/19 History Ergocalciferol [Vitamin D2 50,000 unit PO 10/31/18 10/30/19 History (DRISDOL)] Insulin Glargine,Hum.rec.anlog 75 unit SQ 10/31/18 10/30/19 History [Basaglar Yuan U-100] Melatonin 10 mg PO HS 10/31/18 10/30/19 History Albuterol Sulfate [Ventolin HFA] 2 puff INHALATION RT-Q4H PRN 09/02/19 10/30/19 History DULoxetine HCL [Cymbalta] 30 mg PO BID 09/02/19 10/30/19 History Diclofenac Sodium Gel [Voltaren 2 gm TOPICAL QID PRN 09/02/19 10/30/19 History Gel] Dicyclomine [Bentyl] 20 mg PO Q6H PRN 09/02/19 10/30/19 History Famotidine 40 mg PO DAILY 09/02/19 10/30/19 History INSULIN ASPART (NovoLOG) [NovoLOG See Protocol SQ QID 09/02/19 10/30/19 History (formulary)] QUEtiapine [SEROquel] 100 mg PO BID@0800,1200 09/02/19 10/30/19 History traZODone HCL [Desyrel] 100 mg PO HS 09/02/19 10/30/19 History Pravastatin Sodium [Pravachol] 40 mg PO HS #30 tab 09/04/19 10/30/19 Rx Gabapentin [Neurontin] 300 mg PO BID 10/06/19 10/30/19 History Baclofen [Lioresal] 10 mg PO TID PRN #21 tab 10/24/19 10/30/19 Rx diazePAM [Valium] 5 mg PO QID PRN 7 Days #28 tab 10/24/19 10/30/19 Rx oxyCODONE-APAP 10-325MG [Percocet 1 - 2 tab PO Q4H PRN 10/30/19 10/30/19 History 10-325 mg] Allergies Allergy/AdvReac Type Severity Reaction Status Date / Time haloperidol [From Haldol] AdvReac Hallucinati Verified 10/30/19 20:27 ons haloperidol lactate AdvReac Hallucinati Verified 10/30/19 20:27 [From Haldol] ons Physical Examination Osteopathic Statement: *. No significant issues noted on an osteopathic structural exam other than those noted in the History and Physical/Consult. - C Spine: dermatomal strength & reflexes left Shoulder strength: flexion: 4/5 (His left tricep has significant weakness with 2-3 out of 5 strength. He has decreased dexterity his left hand and wrist. This is essentially unchanged from his prior exam at discharge last week. His right upper extremity has some weakness in his hand and fingers. This is also unchanged. His neck incision site is clear. His neck is supple at the front. He HAD side bent slightly to the right and rotated to the right. His chest is good excursion deep inspiration and expiration abdomen soft nontender. He is talking appropriately breathing appropriately on room air.) Results - Labs Labs: Abnormal Lab Results - Last 24 Hours (Table) 10/30/19 10/30/19 10/30/19 Range/Units 19:12 19:12 19:15 WBC 19.2 H (3.8-10.6) k/uL Neutrophils # 16.4 H (1.3-7.7) k/uL Sodium 128 L (137-145) mmol/L Chloride 90 L (98-107) mmol/L BUN 33 H (9-20) mg/dL Glucose 488 H (74-99) mg/dL POC Glucose (mg/dL) 475 H (75-99) mg/dL 10/30/19 Range/Units 22:54 WBC (3.8-10.6) k/uL Neutrophils # (1.3-7.7) k/uL Sodium (137-145) mmol/L Chloride (98-107) mmol/L BUN (9-20) mg/dL Glucose (74-99) mg/dL POC Glucose (mg/dL) 238 H (75-99) mg/dL H & H 10/30/19 Range/Units 19:12 Hgb 15.4 (13.0-17.5) gm/dL Hct 47.2 (39.0-53.0) % Coagulation 10/30/19 Range/Units 19:12 INR 1.1 (<1.2) Result Diagrams: 10/30/19 19:12 10/30/19 19:12 - Diagnostic results CT scan - cervical: report reviewed, image reviewed (A new computed tomography scan is performed. There is no official reading yet. I am able to view it and repaired to the films from October 20. There is obvious change of the hardware from C6 to T1 with displacement of the corpectomy strut cage from C6 to T1. She is prior image from October 20. It shows displacement of the plate anteriorly into the right with displacement of the strut cage extending anteriorly at the distal aspect. There does not seem to be posterior displacement.) Assessment and Plan Assessment: Traumatic displacement of anterior cervical internal fixation from C6 to T1 18 days status post anterior cervical decompression and internal fixation with corpectomy and fusion from C6 to T1 for traumatic burst fracture of C7 Cervical myelopathy due to traumatic C7 burst fracture Bilateral upper extremity weakness worse on the left and the right, currently unchanged Status post fall at home tonight Hyperglycemia History of pancreatitis multiple times History of substance dependence History of alcohol dependence Plan: Traumatic displacement of anterior cervical internal fixation from C6 to T1 18 days status post anterior cervical decompression and internal fixation with corpectomy and fusion from C6 to T1 for traumatic burst fracture of C7 Cervical myelopathy due to traumatic C7 burst fracture Bilateral upper extremity weakness worse on the left and the right, currently unchanged Status post fall at home tonight Hyperglycemia History of pancreatitis multiple times History of substance dependence History of alcohol dependence The patient sustained a fall at home and has a traumatic displacement of his internal fixation from C6 to T1 where he had undergone corpectomy of C7 with internal fixation and fusion from C6 to T1 for his C7 burst fracture which occurred 2 to a separate fall. The patient does not seem to have acute new neurologic changes or deficits at this point but he is obvious displacement of his internal fixation and hardware. Certainly he is in some jeopardy of further displacement of the hardware and I think that he needs urgent revision of the internal fixation. I think the best approach would be to remove the hardware and do revision anterior cervical corpectomy and fusion. We may have to extend the fusion up to C5 for appropriate internal fixation anteriorly. I think that we need to back up the fusion and corpectomy with posterior cervical fusion. I would plan to do this at the same setting of anesthesia. This evening we are unable to obtain the appropriate instrumentation and hardware for the procedure and we are working on obtaining for tomorrow morning. We will make him nothing by mouth after midnight and plan for anterior and posterior cervical fusion tomorrow morning once the appropriate equipment is present with us. I stressed at length the severity of the issue with the patient. He is supine flat in bed with a hard cervical collar on. He will remain in this position he will not be able to sit up rollover or remove his cervical collar. If he has neurologic decline and we do not have appropriate instrumentation for both procedures, we may have to do a staged procedure emergently to remove the anterior fixation revise it while we await the appropriate posterior instrumentation. This would be one consideration versus possibility of transfer. He does not wish to be transferred. I discussed this with him. I discussed the risk of his issue in his injury and the displacement of the hardware with him. I discussed the risk of complete paralysis and even with him given the severity and the location of his issues. I emphasized the importance of this issues any appears to understand. We'll plan for surgical intervention urgently in the morning. Time with Patient: Greater than 30
[2019-10-31] MEDS ORDERED: DICYCLOMINE 20 MG TAB PO PRN (00:09)
[2019-10-31] MEDS ORDERED: diazePAM 5 MG TAB PO PRN (00:09)
[2019-10-31] MEDS: ACETAMINOPHEN TAB 325 MG TAB PO PRN (00:46)
[2019-10-31] MEDS: HYDROmorphone 1 MG/ML 1 ML SYRINGE IVP PRN ×7 (01:06→23:18)
[2019-10-31] MEDS: BACLOFEN 10 MG TAB PO PRN ×2 (01:57→09:38)
--- NOTE | 2019-10-31 03:35 | P.CONS ---
History of Present Illness - Reason for Consult Consult date: 10/31/19 - History of Present Illness The patient is a 54-year-old male with an extensive PMH including type II DM, hypertension, KASH, chronic cervical spine DJD with history of traumatic C7 burst fracture status post fusion and discectomy on 10/10 presents to the ED after a witnessed fall at home. The patient reports that he had gotten off his bed when he tripped on something on the ground, and fell backwards, hitting his head. He reports significant pain in the neck and right shoulder since the fall. He denied loss of consciousness or any prodromal symptoms prior to the fall. He reports continued weakness of both upper extremities, though unchanged since his surgery. At time of interview, he reported some improvement in his pain, though continues to rate it at a 7 out of 10. He denied headaches or visual disturbanc es. Denied chest pain, shortness of breath, fever, chills, nausea, vomiting, or abdominal pain. In the emergency room a CT head and cervical spine revealed dislocation of the anterior cervical fusion and spacer device with increased kyphosis of the C6 and C7 level concerning for an unstable fracture along with a fracture of the left C6 lamina. Laboratory evaluation revealed a WBC count of 19.2, hemoglobin 15.4, platelets 450, sodium 128, potassium 4.7, chloride 90, glucose 488, BUN 33, with creatinine 0.85. Review of Systems Pertinent positives and negatives as discussed in HPI, a complete review of systems was performed and all other systems are negative. Past Medical History Past Medical History: Diabetes Mellitus, GERD/Reflux, Hypertension, Musculoskeletal Disorder, Osteoarthritis (OA), Sleep Apnea/CPAP/BIPAP Additional Past Medical History / Comment(s): chronic back pain, uses BIPAP, ost eomyolitis in spine after fusion surgery, pancreatitis History of Any Multi-Drug Resistant Organisms: MRSA Year Discovered:: 11/03/2008 MDRO Source:: spine Past Surgical History: Cholecystectomy Additional Past Surgical History / Comment(s): spinal fusion at L4 and L5, pancreatic surgery for pseudocyst w/stent Past Anesthesia/Blood Transfusion Reactions: No Reported Reaction Past Psychological History: Anxiety, Bipolar, Depression Smoking Status: Current every day smoker Past Alcohol Use History: None Reported Past Drug Use History: None Reported - Past Family History Mother Family Medical History: Hypertension Additional Family Medical History / Comment(s): Pt states mother had no health problems. Father Family Medical History: No Reported History Additional Family Medical History / Comment(s): pt stated his father is - had no medicals problems and of natural causes. Medications and Allergies Home Medications Medication Instructions Recorded Confirmed Type Fenofibrate Nanocrystallized 145 mg PO DAILY 08/07/13 10/30/19 History [Fenofibrate] Metoprolol Tartrate [Lopressor] 25 mg PO BID 08/07/13 10/30/19 History Montelukast [Singulair] 10 mg PO HS 08/07/13 10/30/19 History QUEtiapine FUMARATE [SEROquel] 300 mg PO HS 10/01/16 10/30/19 History lamoTRIgine 200 mg PO BID 10/01/16 10/30/19 History Multivitamins, Thera [Multivitamin 1 tab PO DAILY 10/22/16 10/30/19 History (formulary)] amLODIPine [Norvasc] 5 mg PO DAILY 10/22/16 10/30/19 History Ergocalciferol [Vitamin D2 50,000 unit PO SA 10/31/18 10/30/19 History (DRISDOL)] Insulin Glargine,Hum.rec.anlog 75 unit SQ HS 10/31/18 10/30/19 History [Basaglar Kwikpen U-100] Melatonin 10 mg PO HS 10/31/18 10/30/19 History Albuterol Sulfate [Ventolin HFA] 2 puff INHALATION RT-Q4H PRN 09/02/19 10/30/19 History DULoxetine HCL [Cymbalta] 30 mg PO BID 09/02/19 10/30/19 History Diclofenac Sodium Gel [Voltaren 2 gm TOPICAL QID PRN 09/02/19 10/30/19 History Gel] Dicyclomine [Bentyl] 20 mg PO Q6H PRN 09/02/19 10/30/19 History Famotidine 40 mg PO DAILY 09/02/19 10/30/19 History INSULIN ASPART (NovoLOG) [NovoLOG See Protocol SQ QID 09/02/19 10/30/19 History (formulary)] QUEtiapine [SEROquel] 100 mg PO BID@0800,1200 09/02/19 10/30/19 History traZODone HCL [Desyrel] 100 mg PO HS 09/02/19 10/30/19 History Pravastatin Sodium [Pravachol] 40 mg PO HS #30 tab 09/04/19 10/30/19 Rx Gabapentin [Neurontin] 300 mg PO BID 10/06/19 10/30/19 History Baclofen [Lioresal] 10 mg PO TID PRN #21 tab 10/24/19 10/30/19 Rx diazePAM [Valium] 5 mg PO QID PRN 7 Days #28 tab 10/24/19 10/30/19 Rx oxyCODONE-APAP 10-325MG [Percocet 1 - 2 tab PO Q4H PRN 10/30/19 10/30/19 History 10-325 mg] Allergies Allergy/AdvReac Type Severity Reaction Status Date / Time haloperidol [From Haldol] AdvReac Hallucinati Verified 10/30/19 20:27 ons haloperidol lactate AdvReac Hallucinati Verified 10/30/19 20:27 [From Haldol] ons Physical Exam Vitals: Vital Signs Temp Pulse Pulse Resp BP BP Pulse Ox 10/31/19 00:00 115 H 20 137/96 93 L 10/30/19 22:55 98.8 F 10/30/19 22:26 111 H 20 139/92 97 10/30/19 22:18 98.2 F 115 H 18 134/93 91 L 10/30/19 21:53 123 H 18 148/99 98 10/30/19 20:47 120 H 18 152/93 95 10/30/19 19:47 122 H 18 156/85 95 10/30/19 18:21 98.5 F 125 H 18 138/101 93 L Intake and Output 10/30/19 10/30/19 10/31/19 14:59 22:59 06:59 Other: Voiding Method Urinal # Voids 0 Weight 108.862 kg General: Disheveled male, non toxic, no distress, appears at stated age, normal weight Derm: no unusual rashes/lesions no unusual ecchymoses, warm, dry Head: atraumatic, normocephalic, symmetric Eyes: EOMI, no lid lag, anicteric sclera, pupils equal round reactive to light ENT: Nose and ears atraumatic, no thrush, no pharyngeal erythema Neck: Hard neck collar in place Mouth: no lip lesion, mucus membranes moist Cardiovascular: S1S2 reg, no murmur, positive posterior tibial pulse bilateral, no edema, capillary refill less than 2 seconds Lungs: CTA bilateral, no rhonchi, no rales , no accessory muscle use Abdominal: soft, nontender to palpation, no guarding, no appreciable organomegaly, normal bowel sounds Ext: no gross muscle atrophy, left upper extremity strength 3-4 out of 5 with a right upper extremity strength 4 out of 5, bilateral lower extremity strength 5 out of 5, no contractures Neuro: CN II-XI grossly intact, light touch intact all 4 extremities, finger to nose within normal limits Psych: Alert, oriented, appropriate affect Results CBC & Chem 7: 10/30/19 19:12 10/30/19 19:12 Labs: Abnormal Lab Results - Last 24 Hours (Table) 10/30/19 10/30/19 10/30/19 Range/Units 19:12 19:12 19:15 WBC 19.2 H (3.8-10.6) k/uL Neutrophils # 16.4 H (1.3-7.7) k/uL Sodium 128 L (137-145) mmol/L Chloride 90 L (98-107) mmol/L BUN 33 H (9-20) mg/dL Glucose 488 H (74-99) mg/dL POC Glucose (mg/dL) 475 H (75-99) mg/dL 10/30/19 Range/Units 22:54 WBC (3.8-10.6) k/uL Neutrophils # (1.3-7.7) k/uL Sodium (137-145) mmol/L Chloride (98-107) mmol/L BUN (9-20) mg/dL Glucose (74-99) mg/dL POC Glucose (mg/dL) 238 H (75-99) mg/dL Assessment and Plan Plan: Mechanical fall with subsequent traumatic displacement of cervical internal fixation -Management including pain control as per the surgery service -Patient planned for urgent revision corpectomy and fusion Preoperative evaluation -RCRI score 6.0% -The patient is a low to moderate perioperative cardiac risk due to multiple comorbidities -A modifiable risk factor of hyponatremia is present, which should improve in the next 24 hours. Recommend holding off on non-emergent operative procedures if Na continues to be less than 130 Hyponatremia -Likely due to a combination of poor oral intake and SIADH secondary to acute stressor -C/w IVFs -Monitor BMP for now Type II DM -Lispro insulin sliding scale blood glucose monitoring -Continue with Levemir 75 units daily at bedtime home dose Hypertension -Continue with home meds Leukocytosis -No signs of active infection at this time -Likely due to acute stressor
[2019-10-31] MEDS: SODIUM CHLORIDE 0.9% 1,000 ML IV SCH ×4 (07:10→23:15)
[2019-10-31] MEDS: MULTIVITAMINS, THERA 1 EACH TAB PO SCH (08:10)
[2019-10-31] MEDS: QUEtiapine 200 MG TAB PO SCH ×3 (08:10→20:25)
[2019-10-31] MEDS: ERGOCALCIFEROL 50,000 UNIT CAP PO SCH (08:10)
[2019-10-31 08:26] LABS: HCT 45.8 % (39.0-53.0); HGB 14.7 gm/dL (13.0-17.5); MCH 28.9 pg (25.0-35.0); MCHC 32.2 g/dL (31.0-37.0); MCV 89.8 fL (80.0-100.0); Mean Platelet Volume 7.2; Platelet Count 417 k/uL (150-450); RDW 12.6 % (11.5-15.5); WBC 17.8 k/uL (3.8-10.6)
[2019-10-31 08:31] LABS: African American GFR (CKD) >90 (>60 ml/min/1.73 sqM); Anion Gap 10 mmol/L; Blood Urea Nitrogen 28 mg/dL (9-20); Calcium 9.5 mg/dL (8.4-10.2); Carbon Dioxide 26 mmol/L (22-30); Chloride 93 mmol/L (98-107); Glucose 293 mg/dL (74-99); Non-African American GFR(CKD) >90 (>60 ml/min/1.73 sqM); Sodium 129 mmol/L (137-145)
[2019-10-31 08:39] LABS: Appearance,Urine Clear (Clear); Bilirubin,Urine 1+ (Negative); Blood,Urine Negative (Negative); Color,Urine Yellow; Glucose,Urine (UA) 4+ (Negative); Ketones,Urine 1+ (Negative); Leukocyte Esterase,Urine Negative (Negative); Nitrite,Urine Negative (Negative); Protein,Urine Trace (Negative); Specific Gravity,Urine 1.027 (1.001-1.035)
[2019-10-31] MEDS: METOPROLOL TARTRATE 25 MG TAB PO SCH ×2 (09:38→20:18)
[2019-10-31] MEDS: amLODIPine 5 MG TAB PO SCH (09:46)
[2019-10-31] MEDS ORDERED: ceFAZolin 3 GM in SODIUM CHLORIDE 0.9% 100 ML IVPB ONE (10:00)
[2019-10-31] MEDS: INSULIN ASPART (NovoLOG) 100 UNIT/ML VIAL SQ SCH ×4 (12:32→23:18)
[2019-10-31] MEDS: lamoTRIgine 100 MG TAB PO SCH ×2 (12:39→20:18)
[2019-10-31] MEDS: GABAPENTIN 300 MG CAP PO SCH ×2 (12:39→20:18)
[2019-10-31] MEDS: FENOFIBRATE 160 MG TAB PO SCH (12:39)
[2019-10-31] MEDS: DULoxetine HCL 30 MG CAPSULE.DR PO SCH ×2 (12:39→20:17)
[2019-10-31] MEDS: FAMOTIDINE 20 MG TAB PO SCH (12:39)
[2019-10-31] MEDS ORDERED: LIDOCAINE 1% INJ 10MG/ML (20 ML MDV) ONE (13:05)
[2019-10-31] MEDS ORDERED: NEOSTIGMINE 1 MG/ML 10 ML VIAL ONE (13:05)
[2019-10-31] MEDS ORDERED: SUCCINYLCHOLINE CHLORIDE 100 MG/5 ML SYR IV ONE (13:05)
[2019-10-31] MEDS ORDERED: GLYCOPYRROLATE 0.2 MG/ML 2 ML VIAL ONE (13:05)
[2019-10-31] MEDS ORDERED: MIDAZOLAM 2 MG/2 ML VIAL ONE (13:05)
[2019-10-31] MEDS ORDERED: fentaNYL (PF) 50 MCG/ML 2 ML AMP ONE (13:05)
[2019-10-31] MEDS ORDERED: ROCURONIUM BROMIDE 10 MG/ML 5 ML VIAL IV ONE (13:05)
[2019-10-31] MEDS ORDERED: DEXAMETHASONE SOD PHOS (MDV) 100 MG/10 ML VIAL ONE (13:05)
[2019-10-31] MEDS ORDERED: PROPOFOL 10 MG/ML 20 ML VIAL IV ONE (13:05)
[2019-10-31] MEDS ORDERED: ONDANSETRON 4 MG/2 ML VIAL ONE (13:05)
[2019-10-31] MEDS ORDERED: SODIUM CHLORIDE 0.9% 50 ML with ceFAZolin 2,000 MG IV ONE ×2 (13:40)
[2019-10-31] MEDS ORDERED: IV FLUID CONTINUATION 300 ML IV ONE (13:40)
[2019-10-31] MEDS ORDERED: LACTATED RINGERS 1,000 ML IV ONE ×3 (13:59→18:46)
[2019-10-31] MEDS ORDERED: SODIUM CHLORIDE 0.9% IRRIGATION ONE (14:00)
[2019-10-31] MEDS ORDERED: ceFAZolin 2,000 MG in SODIUM CHLORIDE 0.9% 2,000 ML IRRIGATION ONE (14:00)
[2019-10-31] MEDS ORDERED: ceFAZolin 1,000 MG in SODIUM CHLORIDE 0.9% 1,000 ML IRRIGATION ONE (14:00)
[2019-10-31] MEDS ORDERED: CEFAZOLIN IRRIGATION ONE (14:00)
[2019-10-31] MEDS ORDERED: GELATIN SPONGE,ABSORB (LARGE) 1 EACH SPONGE MISCELLANE ONE (14:00)
[2019-10-31] MEDS ORDERED: THROMBIN (BOVINE) 5,000 UNIT VIAL TOPICAL ONE (14:01)
[2019-10-31] MEDS ORDERED: BUPIVACAINE (PF) 0.5% 30 ML VIAL SQ ONE (14:01)
[2019-10-31] MEDS ORDERED: LIDOCAINE 2%-EPI 1:100,000 20 ML VIAL SQ ONE (14:01)
--- NOTE | 2019-10-31 16:26 | XR ---
EXAMINATION TYPE: XR cervical spine 1V DATE OF EXAM: 10/31/2019 COMPARISON: 10/11/2019, CT cervical spine 10/30/2019 HISTORY: Fall, pain, dislocated anterior fusion plate TECHNIQUE: Single lateral view cervical spine FINDINGS: Is been replacement of the anterior cervical fusion at C5. The distal aspect is not well vi sualized due to underpenetration. Note is made patient is intubated. IMPRESSION: 1. Status post anterior cervical fusion repair
[2019-10-31 19:05] LABS: Glucose,Whole Blood 280 mg/dL (75-99)
[2019-10-31] MEDS ORDERED: MAGNESIUM HYDROXIDE 2,400 MG/10 ML CUP PO PRN (19:09)
[2019-10-31] MEDS ORDERED: BENZOCAINE/MENTHOL LOZENG 1 EACH LOZENGE MUCOUS MEM PRN (19:09)
[2019-10-31] MEDS ORDERED: ONDANSETRON 4 MG/2 ML VIAL IVP PRN (19:09)
[2019-10-31] MEDS ORDERED: bisacodyL 10 MG SUPP RECTAL PRN (19:09)
[2019-10-31] MEDS ORDERED: INSULIN ASPART (NovoLOG) 100 UNIT/ML VIAL SQ ONE (19:15)
[2019-10-31] MEDS ORDERED: VANCOMYCIN 1,250 MG in SODIUM CHLORIDE 0.9% 250 ML IVPB SCH (19:15)
--- NOTE | 2019-10-31 19:32 | FL ---
Fluoroscopy INDICATION: Pain FINDINGS: Fluoroscopy time: 8 seconds. Images obtained: 6. IMPRESSIONS: 1. Documentation of fluoroscopy.
[2019-10-31] MEDS ORDERED: VANCOMYCIN IV PER PHARMACY 1 EACH MISC MISCELLANE PRN (19:37)
--- NOTE | 2019-10-31 19:51 | P.OP ---
Date of Procedure: 10/31/19 Preoperative Diagnosis: Failed internal fixation C6 to T1 and corpectomy of C7 due to new trauma Cervical myelopathy Recent C7 burst fracture with subsequent open reduction internal fixation corpectomy of C7 and fusion of C6 to T1 Bilateral upper extremity weakness worse on the left than the right Status post fall Postoperative Diagnosis: Failed internal fixation C6 to T1 and corpectomy of C7 due to new trauma Cervical myelopathy Recent C7 burst fracture with subsequent open reduction internal fixation corpectomy of C7 and fusion of C6 to T1 Bilateral upper extremity weakness worse on the left than the right Status post fall Also findings intraoperatively of epidural abscess at C7 Also findings intraoperatively of lamina fracture posteriorly at C7 on the left Procedure(s) Performed: Of note this was a staged procedure under one single anesthetic. We first performed anterior cervical surgery and then posterior cervical surgery. Stage I, anterior cervical surgery: Removal of deep hardware C6 to T1, revision internal fixation and corpectomy of C7 Revision internal fixation C6 to T1 Extension of fusion anteriorly to C5 6 Anterior cervical discectomy and fusion C5 6 Application of anterior cervical plate C5 to T1 Placement of titanium strut cage C6 to T1 Irrigation and excisional debridement of epidural abscess C7 Revision anterior cervical decompression C6 to T1 Stage II, posterior cervical surgery: Application of Jaimes wellhead pumper Posterior cervical spinal fusion C5 -6 C6 -7 C7- T1 T1-T2, With a combination of lateral mass screws and pedicle screws Partial laminectomy C5 6 C6 7, Local autogenous bone grafting, Anesthesia: GETA Pathology: other (Deep cultures from anterior C7 epidural space sent to [place] [facility]) Condition: stable Disposition: PACU Description of Procedure: BRIEF OPERATIVE NOTE Preoperative Diagnosis:Failed internal fixation C6 to T1 due to new trauma, cervical myelopathy, recent history of anterior cervical open reduction internal fixation with corpectomy of C7 and fusion C6 to T1 Due to C7 burst fracture which was traumatic, bilateral upper extremity weakness worse on left and right Postoperative Diagnosis:Same plus findings of anterior cervical epidural abscess at C7 and findings of C7 laminar fracture on the left Procedure: Of note this was a 2 staged procedure under one single anesthetic. We first performed anterior cervical surgery and then posterior cervical surgery. Stage I, anterior cervical surgery: Removal of deep hardware C6 to T1, revision internal fixation and corpectomy of C7 Revision internal fixation C6 to T1 Extension of fusion anteriorly to C5 6 Anterior cervical discectomy and fusion C5 6 Application of anterior cervical plate C5 to T1 Placement of titanium strut cage C6 to T1 Irrigation and excisional debridement of epidural abscess C7 Revision anterior cervical decompression C6 to T1 Stage II, posterior cervical surgery: Application of Jaimes wellhead pumper Posterior cervical spinal fusion C5 -6 C6 -7 C7- T1 T1-T2, With a combination of lateral mass screws and pedicle screws Partial laminectomy C5 6 C6 7, Local autogenous bone grafting, Surgeon: Dr. Barger Clay Stain Mixer: Rg ADKINS Anesthesia: General anesthesia Estimated blood loss: Complications: None apparent Components implanted:Titanium anterior cervical cage measuring 34 mm with an anterior cervical Grover K2M plate Posteriorly use K2M 35 polyaxial screws for the lateral mass screws and for the pedicle screws at T1 and T2 with a 4 mm duyen bilaterally I also used Bio4 allograft bone graft placed in the anterior cervical cage as well as at the posterior surgery for the decorticated facet joints lateral masses as well as fibrous DBX bone graft posteriorly Disposition: To recovery room in good stable condition. OPERATIVE INDICATIONS The patient has Had a injury about 3-1/2 weeks agoHe sustained a fall. He had initial workup and was found have a burst fracture at C7 with evidence of weakness and early myelopathy due to trauma. After discussing different treatment options the patient underwent anterior cervical decompression and corpectomy Of C7with open reduction internal fixation from C6 to T1 Performed on October 10. The patient initially made progress particularly with his extremities and his neurologic function. He was experiencing significant amounts of pain and was in the hospital and managed for this. He was able to be discharged home and was mobile and auditory and becoming more comfortable. We had some difficulty is with his compliance in terms of his overall activity and wearing of his collar. We were able to have imaging and new computed tomography scan of the cervical spine which showed his internal fixation from C6 to T1 in good alignment and good position.The patient was given instructions and was attempting to follow them as he could. Over the next week apparently the patient had further difficulties with his pain. His sugars have become uncontrolled has had significant increase in his blood glucose. He sustained a fall last night at home which was witnessed by his roommate where he fell backwards and apparently hit his head. He had subsequent increased pain and presented to the emergency room were he was found to have failed internal fixation at C6 to T1 due to his new trauma that evening. With the instability at his cervical spine at the site of the corpectomy I felt that he needed revision of the internal fixation at his cervical spine. We discussed various treatment options with him and I felt the best treatment course would be to perform revision anterior cervical surgery and posterior cervical fusion as well. I felt we would likely need to do fixation above and below the T7 site with possible fusion from C5 to T2. I discussed this at length with the patient. I discussed the nature of the surgery with himWe discussed various treatment options including surgery, and the patient wishes to proceed with surgery We discussed the risk, patient's alternatives and benefits of surgery including but not limited to, risk of bleeding risk of infection, risk of need for further surgery, risk of decreased, loss of motion, muscle function, malunion nonunion, hardware failure, nerve damage, paralysis, heart attack, and . OPERATIVE SUMMARY After discussing all the risks, patient alternatives and benefits at length, the patient elected to proceed with surgical intervention, signed informed consent, and presented for their procedure. The patient was seen and examined in the preoperative holding area and the surgical site was marked. The patient was given antibiotics and brought to the operating room.We prepared for a two-stage procedure under a single anesthesia. I planned to perform anterior cervical surgery and then once that was completed to apply Jaimes wellhead pumper and flipped the patient prone onto a new operating room table for his posterior cervical surgery under the same anesthesia. Stage I The patient was positioned on the operating room table in a supine position being careful to pad any bony prominences and pressure points. The patient was sedated and intubated by anesthesia in standard fashion. Once the airway and C- spine were stabilized the patient's arms were padded and tucked at her side, with her shoulders gently taped. The head was placed in a donut pad with the neck in good neutral alignment and position. We were careful to maintain the patient's cervical spine and good neutral alignment and position throughout. The patient was prepped and draped in a normal standard fashion. An appropriate timeout and keystone protocol performed. We were able to proceed with the surgery. The local wound area was infiltrated with local anesthetic. An incision was made transversely approximately 2-1/2 cm over the appropriate levelsUtilizing the prior incision site at C7. Dissection was taken down subcutaneously to the level of the platysma which was split in line with its fibers. There is significant amount of scar tissue around the area and inflammatory tissue. Dissection was taken with a carotid approach, with the trachea and esophagus medial and the carotid sheath laterally. As I dissected down onto the field the plate which had been somewhat dislodged. I dissected down over the plate and expose a pocket of turbid yellow fluid which appeared to be pus. It was at least 5 mL of fluid. I took deep cultures 2 for the presumed abscess at C7. The area was copiously irrigated suctioned dry. I was able to remove the plate and screws which were essentially completely dislodged. There examined and found to be in total. I removed the cage from the corpectomy site of C7. It was examined and found to be in total. There is significant denuded tissue which was excised with curettes and Kerrison rongeurs. I was able to explore the area to remove any evidence of infection or further pus or purulence. The wound was copiously irrigated and suctioned dry with antibiotic irrigation. I dissected further to the anterior surfaces of C5 6 and the inferior aspect of T1. There is obvious further fracture at C6 and T1 where the screws had pulled out. I had to do revision of the corpectomy and do a subtotal corpectomy of C6 to get to stable bone. I did some revision of the decompression behind C6 and T1. There was scar tissue over the dura which I partially took down. I was not able to remove all scar tissue as it was significantly adhered to the dura itself. I felt I had good decompression. There is very little bone left at this. Aspect of C6. Some of the infectious material seemed to extend into the disc space at C5 6. I had to remove disc from C5 6. With this I felt that extending the fusion up to C5 anteriorly would give better fixation and also out remove further infectious material. I did anterior cervical discectomy at C5 6. The disc was removed appropriately. There is no further pus or fluid deep into the disc space. I did a wide decompression posteriorly as well. There is some evidence of disc trusion and foraminal stenosis which was removed and decompressed. The endplates were prepared at C5 6. Had good bleeding surfaces at C5 6. I used a the Goran anterior cervical bone graft which is measured in size and placed at C5 6 appropriately with anterior surface flush with the anterior surface of vertebral bodies. It was 9 mm. There is only approximately 3 or 4 mm remaining of C6 superiorly. I was able to drill down to get a good stable surface at C6 for preparation for the graft in the corpectomy. I explored further at C7-T1. There had been further fracture at T1. I had to revise the corpectomy at that level of T1 in order get good surface for the Corpectomy strut cage. I was able to get to good surface that I felt would accept a cage. I had to good decompression from C6 to T1. I measured the space with calipers. The appropriate size cage was prepared and filled with allograft bone graft. There is no further evidence of pus or purulence. I had anesthesia placed in gentle in-line traction at cervical spine was able place the cage appropriately and good alignment and good position with good fit and fill from C6 to T1. We dissected down to the anterior surface of the vertebral bodiesOf T1 and felt I had some space remaining there. I then pr epared to place a plate from C5 to T1. It was measured contoured and I was able place screws 2 at C5 and screws 2 at T1. They had good position and good alignment and bony purchase. There were locked in place appropriately. The wound was copiously irrigated and suctioned dry. Intraoperative x-ray showed good alignment and position of the hardware that we could see. It was difficult to see all the way down to T1 but we were able to get some visualization. Intraoperative x-ray was taken which showed good alignment and position of the implants at the appropriate levels. There was no evidence of any dural tear or leak. Good hemostasis was maintained. There is no evidence of any purulence or pus.The wound was copiously irrigated and suctioned dry as had been done periodically throughout the case. The platysma was closed with absorbable suture. I closed this over a deep drain.The subcutaneous tissue was closed. The subcuticular tissue was closed with absorbable suture. The wound was cleaned and dried and dressed appropriately. Stage II After we broke down the drapes from anterior cervical surgery the patient remained intubated. I carefully placed a Jaimes wellhead pumper appropriately and tightened the pins down to approximately 60 area it seemed to have good fixation at his skull. Then keeping the patient back in good neutral alignment and position I was able to gently rolled patient onto his alternate operating room table with a Eugenio frame and his arms at his side and his head and neck in good neutral alignment and position. The Jaimes frame was attached to the wellhead pumper appropriately and had excellent stability. It was checked and found to be stable. We were able to then proceed with further positioning and prepping and draping. The head and neck remaining good neutral alignment and positioning and stable in the Jaimes wellhead pumper throughout the case. An appropriate keystone protocol appropriate timeout was completed. We will proceed with the posterior spinal fusion. An incision was made sharply through skin and subcutaneous tissue at the midline longitudinally from approximately C5 to T2. Dissection was taken down through the subcu tissue down to the level of fascia which was split in the midline with its fibers over the lamina and facet joints from C5 to T2. Intraoperative x-ray and C-arm was utilized to show appropriate level at C5 6 facet joint. With this positively confirmed I was able to further proceed. No was made of some obvious instability at the C7 spinous process. I explored the area further there was noted to be a nondisplaced fracture at the lamina on the left side. I performed a small laminectomy at C7 lamina as well as C5 6 lamina and the bone was saved for local autogenous bone grafting. The lateral masses of C5 6 and 7 were exposed well as well as the facet joints. I exposed the lamina out to the transverse process tips and the facet joints of T1 and T2 appropriately. With the area exposed properly evaluated I was unable to start placing hardware for the fusion and posterior spine. These lateral mass screws with [facility] approach at C5 and 6 bilaterally and I had to skip C7 lateral masses for appropriate contouring of the construct. I was able place pedicle screws at the midpoint of the transfer processes at T1 and T2 bilaterally. For the pedicle screws I used a thoracic Steffee probe and a ball-tip feeler. I have good for fontenot and a good base and good fixation of the screws bilaterally at C5 C6 T1 and T2. This was done bilaterally. I had good alignment overall. I then decorticated the facet joints and lateral masses as well as the transverse processes from C5 6 and T1-T2. As able place the local autogenous bone graft within the facet joints were decorticated as well as over the lateral masses. I placed further allograft bone graft over the lateral masses and transverse processes which were decorticated as well. I was able place the rods and appropriate. There were contoured bent and placed from C5 6 T1 and T2. The Screws were placed appropriately and torqued properly. This was done at each of the screws. The construct was checked out of e xcellent stability. The wound had been copiously irrigated and suctioned dry there is no evidence of any dural tear or leak and good hemostasis was maintained. There is no evidence of any purulence or pus. We Were able toproceed with closure.For the fascial layer was able to use #1 strata fix suture with excellent reapproximation of the fascia. Wound was irrigated suctioned dry subcu tissues closed with 2-0 Vicryl and the skin was closed with candace. Wound was clean dry dressed appropriately. The drapes were broken down and we were able to place the hard cervical collar back on the patient he was then rolled back to supine position keeping his head and neck in good alignment and position onto his hospital bed. I was unable to remove the [place] wellhead pumper without incident. The sites are clean. The patient will be able to be admitted back to the hospital for continued postoperative care and management. He will continue management for his uncontrolled diabetes as well as his cervical myelopathy. We'll start him moving with his hard cervical collar on. We will also have infectious disease see him and start him on IV antibiotics. He will likely need long-term IV antibiotics as well. The patient will be admitted to the hospital for appropriate postoperative care, medical management and monitoring. We will continue to follow them closely about the postoperative course.
[2019-10-31] MEDS: PANTOPRAZOLE 40 MG/10 ML VIAL IV SCH (20:00)
[2019-10-31] MEDS: VANCOMYCIN 1,500 MG in SODIUM CHLORIDE 0.9% 250 ML IVPB SCH (20:17)
[2019-10-31] MEDS: MONTELUKAST 10 MG TAB PO SCH (20:18)
[2019-10-31] MEDS: traZODone HCL 100 MG TAB PO SCH (20:18)
[2019-10-31] MEDS: PRAVASTATIN SODIUM 40 MG TAB PO SCH (20:18)
[2019-10-31] MEDS: INSULIN DETEMIR (LEVEMIR) 100 UNIT/ML SYR SQ SCH (20:26)
[2019-10-31 20:29] LABS: Glucose,Whole Blood 302 mg/dL (75-99)
[2019-10-31 23:13] LABS: Glucose,Whole Blood 347 mg/dL (75-99)
[2019-11-01] MEDS: INSULIN ASPART (NovoLOG) 100 UNIT/ML VIAL SQ SCH ×5 (01:43→20:44)
[2019-11-01] MEDS: BACLOFEN 10 MG TAB PO PRN (01:45)
[2019-11-01] MEDS: HYDROmorphone 1 MG/ML 1 ML SYRINGE IVP PRN ×7 (02:13→20:51)
[2019-11-01] MEDS: VANCOMYCIN 1,500 MG in SODIUM CHLORIDE 0.9% 250 ML IVPB SCH ×3 (04:28→21:45)
[2019-11-01] MEDS: SODIUM CHLORIDE 0.9% 1,000 ML IV SCH ×3 (06:11→12:13)
[2019-11-01 06:31] LABS: Glucose,Whole Blood 405 mg/dL (75-99)
[2019-11-01] MEDS: oxyCODONE-APAP 10-325MG 1 EACH TAB PO PRN ×4 (07:59→23:32)
[2019-11-01] MEDS: FAMOTIDINE 20 MG TAB PO SCH (08:00)
[2019-11-01] MEDS: DULoxetine HCL 30 MG CAPSULE.DR PO SCH ×2 (08:00→20:35)
[2019-11-01] MEDS: lamoTRIgine 100 MG TAB PO SCH ×2 (08:00→20:34)
[2019-11-01] MEDS: GABAPENTIN 300 MG CAP PO SCH ×2 (08:01→20:35)
[2019-11-01] MEDS: amLODIPine 5 MG TAB PO SCH (08:01)
[2019-11-01] MEDS: METOPROLOL TARTRATE 25 MG TAB PO SCH ×2 (08:01→20:35)
[2019-11-01] MEDS: QUEtiapine 200 MG TAB PO SCH ×4 (08:01→20:35)
[2019-11-01] MEDS: FENOFIBRATE 160 MG TAB PO SCH (08:01)
[2019-11-01] MEDS: MULTIVITAMINS, THERA 1 EACH TAB PO SCH (08:01)
[2019-11-01] MEDS: PANTOPRAZOLE 40 MG/10 ML VIAL IV SCH (08:02)
[2019-11-01] MEDS: SENNOSIDES-DOCUSATE SODIUM 1 EACH TAB PO SCH (08:02)
[2019-11-01] MEDS ORDERED: SENNOSIDES-DOCUSATE SODIUM 1 EACH TAB PO SCH (09:00)
--- NOTE | 2019-11-01 09:30 | P.PN ---
Subjective Progress Note Date: 11/01/19 Principal diagnosis: Status post 2 staged revision of cervical fusion This is a 54 year-old male post removal of deep hardware C6 to T1, revision internal fixation and corpectomy of C7, revision internal fixation C6 to T1, extension of fusion anteriorly to C5 6, anterior cervical discectomy and fusion C5 6, application of anterior cervical plate C5 to T1, placement of titanium strut cage C6 to T1, irrigation and excisional debridement of epidural abscess C7, revision anterior cervical decompression C6 to T1, posterior cervical spinal fusion C5 -6 C6 -7 C7- T1 T1-T2 with a combination of lateral mass screws and pedicle screws, partial laminectomy C5 6 C6 7, and local autogenous bone grafting. This is post-op day 1. The patient was evaluated at the bedside today. The patient denies nausea, vomiting, abdominal pain, shortness of breath, and chest pain this morning. He is very sleepy this morning but does waken to answer questions. He states his pain is controlled at this time. The patient has not been up with physical therapy yet. Infectious disease has been consulted due to the epidural abscess at C7. There is a drain in place with small sanginous output at this time. Objective - Vital Signs Vital signs: Vital Signs Temp 98.3 F 11/01/19 08:21 Pulse 115 H 11/01/19 08:21 Resp 18 11/01/19 08:21 BP 133/65 11/01/19 08:21 Pulse Ox 95 11/01/19 08:21 Intake & Output 10/31/19 11/01/19 11/01/19 18:59 06:59 18:59 Intake Total 2351 100 480 Output Total 1400 30 930 Balance 951 70 -450 Weight 84.5 kg 84 kg Intake: IV 2351 100 Oral 480 Output: Drainage 30 30 Right Anterior Neck 30 30 Urine 1200 900 Estimated Blood Loss 200 Other: Voiding Method Urinal Indwelling Catheter Indwelling Catheter # Bowel Movements 0 - Exam The patient does not appear in acute distress. Alert and orientated x3 but falls back to sleep easily. Abdomen is soft and nontender. Dressings are clean dry and intact. Hard cervical collar in place. He is able to move his arms and legs actively when asked. Bilateral hand drip is weak. Sensation and circulatory status is intact. - Labs CBC & Chem 7: 10/31/19 07:40 10/31/19 07:40 Labs: Abnormal Lab Results - Last 24 Hours (Table) 10/31/19 10/31/19 10/31/19 Range/Units 19:03 20:19 23:12 POC Glucose (mg/dL) 280 H 302 H 347 H (75-99) mg/dL 11/01/19 Range/Units 06:28 POC Glucose (mg/dL) 405 H (75-99) mg/dL Microbiology - Last 24 Hours (Table) 10/31/19 14:30 Gram Stain - Preliminary Back Wound Culture - Preliminary 10/31/19 14:29 Gram Stain - Preliminary Back Wound Culture - Preliminary 10/31/19 14:30 Anaerobic Culture - Preliminary Back 10/31/19 14:29 Anaerobic Culture - Preliminary Back Assessment and Plan (1) Fall Current Visit: Yes Status: Acute Code(s): W19.XXXA - UNSPECIFIED FALL, INITIAL ENCOUNTER SNOMED Code(s): 5208183 (2) Failed hardware Current Visit: Yes Status: Acute Code(s): [id number] - SNOMED Code(s): 853628548 Plan: 1. Continue pain control, Percocet and Dilaudid as needed. 2. Await ID consult for epidural abscess 3. Start physical therapy and ambulation 4. Maintain hard cervical collar
[2019-11-01 11:55] LABS: Glucose,Whole Blood 254 mg/dL (75-99)
[2019-11-01 16:59] LABS: Glucose,Whole Blood 151 mg/dL (75-99)
--- NOTE | 2019-11-01 17:27 | P.PN ---
Progress Note - Text Progress Note Date: 11/01/19 History of presenting complaint: This is a 54-year-old patient who follows with Dr. thomas from [place]. Chronic stable medical conditions include diabetes mellitus type II on insulin pump.,GERD, hypertension, obstructive sleep apnea uses CPAP, chronic pancreatitis, bipolar disorder and chronic low back pain. 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 underwent cervical spine surgery by Dr. Shanks-on October 09. Has also had recently nondisplaced proximal tibia fracture being managed with a knee brace. Recently felt to have some light conditions of the bone. DrKranthi by oncology including a bone scan, skeletal survey, negative protein electrophoresis. No further workup per oncology. Also last admission seen by psychiatry recommended to cut back on narcotics. This occasion he had fallen backwards at home.found to have displacement of the internal fixation and graft at C6 to T1. Patient underwent surgery in October 30. With removal of hardware and revision fixation At multiple levels. Patient is a cervical collar and a drain in place. Today-laying in bed. Rather lethargic. Getting narcotics. Not eating much. Tired. Review of systems: Was done for constitutional, cardiovascular, GI, pulmonary. Muscular skeletal relevant finding as above Active Medications Acetaminophen (Tylenol Tab) 650 mg PO Q6HR PRN PRN Reason: Mild Pain or Fever > 100.5 Last Admin: 10/31/19 00:46 Dose: 650 mg Documented by: Albuterol Sulfate (Ventolin Nebulized) 2.5 mg INHALATION RT-Q4H PRN PRN Reason: Shortness Of Breath Amlodipine Besylate (Norvasc) 5 mg PO DAILY [facility] Last Admin: 11/01/19 08:01 Dose: 5 mg Documented by: Baclofen (Lioresal) 10 mg PO TID PRN PRN Reason: Muscle Spasm Last Admin: 11/01/19 01:45 Dose: 10 mg Documented by: Benzocaine/Menthol (Cepacol Lozenge) 1 each MUCOUS MEM Q4HR PRN PRN Reason: Sore Throat Bisacodyl (Dulcolax) 10 mg RECTAL DAILY PRN PRN Reason: Constipation Diazepam (Valium) 5 mg PO QID PRN PRN Reason: Anxiety Last Admin: 10/31/19 00:46 Dose: 5 mg Documented by: Dicyclomine HCl (Bentyl) 20 mg PO Q6H PRN PRN Reason: CRAMPS Duloxetine HCl (Cymbalta) 30 mg PO BID [facility] Last Admin: 11/01/19 08:00 Dose: 30 mg Documented by: Ergocalciferol (Vitamin D2) 50,000 unit PO Sa@0900 [facility] Last Admin: 10/31/19 08:10 Dose: Not Given Documented by: Famotidine (Pepcid) 40 mg PO DAILY [facility] Last Admin: 11/01/19 08:00 Dose: 40 mg Documented by: Fenofibrate (Lofibra) 160 mg PO DAILY [facility] Last Admin: 11/01/19 08:01 Dose: 160 mg Documented by: Gabapentin (Neurontin) 300 mg PO BID [facility] Last Admin: 11/01/19 08:01 Dose: 300 mg Documented by: Hydromorphone HCl (Dilaudid) 1 mg IVP Q4HR PRN PRN Reason: Pain Last Admin: 11/01/19 15:15 Dose: 1 mg Documented by: Hydromorphone HCl (Dilaudid) 1 mg IVP Q3HR PRN PRN Reason: Pain Last Admin: 11/01/19 11:08 Dose: 1 mg Documented by: Sodium Chloride (Saline 0.9%) 1,000 mls @ 120 mls/hr IV .[id number] [facility] Last Admin: 11/01/19 12:13 Dose: Not Given Documented by: Sodium Chloride (Saline 0.9%) 1,000 mls @ 75 mls/hr IV .[id number] [facility] Last Admin: 11/01/19 08:02 Dose: 75 mls/hr Documented by: Vancomycin HCl 1,500 mg/ (Sodium Chloride) 250 mls @ 125 mls/hr IVPB Q8H [facility] Last Admin: 11/01/19 11:53 Dose: 125 mls/hr Documented by: Cefepime HCl 2 gm/ Sodium (Chloride) 100 mls @ 25 mls/hr IVPB Q12HR [facility] Cefepime HCl 2 gm/ Sodium (Chloride) 100 mls @ 200 mls/hr IVPB ONCE ONE Stop: 11/01/19 21:29 Insulin Aspart (Novolog) 0 unit SQ ACHS [facility]; Protocol Last Admin: 08/30/20 12:22 Dose: 4 unit Documented by: Insulin Detemir (Levemir) 75 unit SQ [facility] Last Admin: 10/31/19 20:26 Dose: 75 unit Documented by: Lamotrigine (Lamictal) 200 mg PO BID [facility] Last Admin: 11/01/19 08:00 Dose: 200 mg Documented by: Magnesium Hydroxide (Milk Of Magnesia) 2,400 mg PO DAILY PRN PRN Reason: Constipation Metoprolol Tartrate (Lopressor) 25 mg PO BID [facility] Last Admin: 11/01/19 08:01 Dose: 25 mg Documented by: Miscellaneous Information (Vancomycin Trough Due) 0 each MISCELLANE DIRECTED ONE Stop: 11/02/19 11:01 Montelukast Sodium (Singulair) 10 mg PO [facility] Last Admin: 10/31/19 20:18 Dose: 10 mg Documented by: Multivitamins (Theragran) 1 each PO DAILY [facility] Last Admin: 11/01/19 08:01 Dose: 1 each Documented by: Naloxone HCl (Narcan) 0.2 mg IV Q2M PRN PRN Reason: Opioid Reversal Ondansetron HCl (Zofran) 4 mg IVP Q8HR PRN PRN Reason: Nausea And Vomiting Last Admin: 10/30/19 22:14 Dose: 4 mg Documented by: Oxycodone/Acetaminophen (Percocet 10-325) 1 - 2 each PO Q4H PRN PRN Reason: Pain Last Admin: 11/01/19 12:20 Dose: 1 each Documented by: Pantoprazole Sodium (Protonix) 40 mg IV DAILY [facility] Last Admin: 11/01/19 08:02 Dose: 40 mg Documented by: Pravastatin Sodium (Pravachol) 40 mg PO [facility] Last Admin: 10/31/19 20:18 Dose: 40 mg Documented by: Quetiapine Fumarate (Seroquel) 100 mg PO BID@0800,1200 [facility] Last Admin: 11/01/19 12:22 Dose: 100 mg Documented by: Quetiapine Fumarate (Seroquel) 300 mg PO [facility] Last Admin: 10/31/19 20:25 Dose: 300 mg Documented by: Senna/Docusate Sodium (Senokot-S) 4 each PO DAILY [facility] Last Admin: 11/01/19 08:02 Dose: 4 each Documented by: Trazodone HCl (Desyrel) 100 mg PO HS [facility] Last Admin: 10/31/19 20:18 Dose: 100 mg Documented by: Physical examination: VITAL SIGNS: 98.6, 113, 20, 134/83, 94% on 2 L GENERAL: Laying in bed, lethargic but arousable EYES: Pupils equal. Conjunctiva normal. HEENT: External appearance of nose and ears normal, oral cavity grossly normal. NECK: Cervical collar in place-as drain in place. HEART: First and second heart sounds are normal; no edema. LUNGS: Respiratory rate increased, diminished breath sounds ABDOMEN: Soft, non-tenderness,, no guarding rigidity, liver spleen not palpable, no masses palpable. PSYCH: Lethargic sleepy but arousable NEUROLOGICAL: Able to move his limbs INVESTIGATIONS, reviewed in the clinical context: White count 7.8 hemoglobin 14.7 potassium 4 creatinine 0.67 sodium 129 Accu-Cheks 405, 254, 151 Previous testing Computed tomography scan of the spine showing dislocation of anterior cervical fusionand C7 increased kyphosis at C6-C7; fracture of the left C6 lamina Assessment: -chronic pancreatitis. - October 10-C6 C7 T1 removal of bone fragments from fracture of C7, decompression fusion and plating-4 C7 fracture, cervical spine stenosis , myelopathy disc herniation: Now presented with trauma with Computed tomography scan of the spine showing dislocation of anterior cervical fusionand C7 increased kyphosis at C6-C7; fracture of the left C6 lamina-status post replacement and repair -Diabetes mellitus type 2 chronically insulin pump, uncontrolled with hyperglycemia -GERD -Essential hypertension -Obstructive sleep apnea uses a BiPAP machine -Bipolar disorder -Chronic low back pain -Obesity BMI 31.7 -Chronic nicotine dependence patient cigarette smoker -COPD in a current smoker - Plan: Patient is on IV cefepime and IV vancomycin. Getting Dilaudid. IV fluids. Repeat labs in the morning.
[2019-11-01 20:17] LABS: Glucose,Whole Blood 146 mg/dL (75-99)
[2019-11-01] MEDS: MONTELUKAST 10 MG TAB PO SCH (20:34)
[2019-11-01] MEDS: traZODone HCL 100 MG TAB PO SCH (20:34)
[2019-11-01] MEDS: PRAVASTATIN SODIUM 40 MG TAB PO SCH (20:34)
[2019-11-01] MEDS: INSULIN DETEMIR (LEVEMIR) 100 UNIT/ML SYR SQ SCH (20:44)
[2019-11-01] MEDS ORDERED: CEFEPIME 2 GM in SODIUM CHLORIDE 0.9% 100 ML IVPB ONE (21:00)
[2019-11-02] MEDS: SODIUM CHLORIDE 0.9% 1,000 ML IV SCH ×2 (00:29→14:00)
[2019-11-02] MEDS: VANCOMYCIN 1,500 MG in SODIUM CHLORIDE 0.9% 250 ML IVPB SCH ×3 (04:59→21:06)
[2019-11-02] MEDS: HYDROmorphone 1 MG/ML 1 ML SYRINGE IVP PRN ×5 (05:03→23:02)
[2019-11-02 05:57] LABS: Glucose,Whole Blood 83 mg/dL (75-99)
[2019-11-02] MEDS: INSULIN ASPART (NovoLOG) 100 UNIT/ML VIAL SQ SCH ×4 (06:30→21:06)
--- NOTE | 2019-11-02 06:55 | P.CONS ---
History of Present Illness - Reason for Consult Consult date: 11/01/19 C7 abscess Requesting physician: Srinivas Barger - Chief Complaint Neck pain and fall x one day - History of Present Illness Patient is a 54-year-old male who is status post anterior cervical over her reduction internal fixation with corpectomy of C7 and fusion from C6 to T1 after apparently the patient did have traumatic T7 burst fracture surgery was done on 10/11/2019, , patient subsequently was discharged home patient has not been brought back to the hospital on 10/30/2019 after pending the patient did have redness for the home patient fell backwards and hit his head against the banister and subsequently the patient did have significant pain in his neck area scan the pain to be more of a sharp almost on a 10 in severity and no significant radiation patient incision site. The leg looked okay on initial evaluation by orthopedic surgery, patient did have a CT of the cervical spine which shows dislocation of the anterior cervical fusion and spacer device is located C7 with anterior and left lateral spine vertebral column fracture of the C6 lamina, patient was subsequently taken back to the OR yesterday evening, patient will was noticed to have failed internal fixation C6 to T1 and corpectomy of C7 due to new trauma and there was evidence of C7 epidural abscess, patient is status post removal of the deep part of a C6 to 27 revision of the internal fixation and corpectomy of C7 revision internal fixation C6 to T1 and extension of fusion anteriorly to C5 6 drainage of the abscess culture were obtained patient was apparently started on vancomycin and infectious disease was consulted for further management of antibiotic therapy Review of Systems Positive point has been mentioned in the HPI rest of the systems are negative 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, pancreatitis History of Any Multi-Drug Resistant Organisms: MRSA Year Discovered:: 11/03/2008 MDRO Source:: spine Past Surgical History: Cholecystectomy Additional Past Surgical History / Comment(s): spinal fusion at L4 and L5, pancreatic surgery for pseudocyst w/stent Past Anesthesia/Blood Transfusion Reactions: No Reported Reaction Past Psychological History: Anxiety, Bipolar, Depression Smoking Status: Current every day smoker Past Alcohol Use History: None Reported Past Drug Use History: None Reported - Past Family History Mother Family Medical History: Hypertension Additional Family Medical History / Comment(s): Pt states mother had no health problems. Father Family Medical History: No Reported History Additional Family Medical History / Comment(s): pt stated his father is - had no medicals problems and of natural causes. Medications and Allergies Home Medications Medication Instructions Recorded Confirmed Type Fenofibrate Nanocrystallized 145 mg PO DAILY 08/07/13 10/30/19 History [Fenofibrate] Metoprolol Tartrate [Lopressor] 25 mg PO BID 08/07/13 10/30/19 History Montelukast [Singulair] 10 mg PO HS 08/07/13 10/30/19 History QUEtiapine FUMARATE [SEROquel] 300 mg PO HS 10/01/16 10/30/19 History lamoTRIgine 200 mg PO BID 10/01/16 10/30/19 History Multivitamins, Thera [Multivitamin 1 tab PO DAILY 10/22/16 10/30/19 History (formulary)] amLODIPine [Norvasc] 5 mg PO DAILY 10/22/16 10/30/19 History Ergocalciferol [Vitamin D2 50,000 unit PO SA 10/31/18 10/30/19 History (DRISDOL)] Insulin Glargine,Hum.rec.anlog 75 unit SQ HS 10/31/18 10/30/19 History [Basaglar Kwikpen U-100] Melatonin 10 mg PO HS 10/31/18 10/30/19 History Albuterol Sulfate [Ventolin HFA] 2 puff INHALATION RT-Q4H PRN 09/02/19 10/30/19 History DULoxetine HCL [Cymbalta] 30 mg PO BID 09/02/19 10/30/19 History Diclofenac Sodium Gel [Voltaren 2 gm TOPICAL QID PRN 09/02/19 10/30/19 History Gel] Dicyclomine [Bentyl] 20 mg PO Q6H PRN 09/02/19 10/30/19 History Famotidine 40 mg PO DAILY 09/02/19 10/30/19 History INSULIN ASPART (NovoLOG) [NovoLOG See Protocol SQ QID 09/02/19 10/30/19 History (formulary)] QUEtiapine [SEROquel] 100 mg PO BID@0800,1200 07/01/20 08/28/20 History traZODone HCL [Desyrel] 100 mg PO HS 09/02/19 10/30/19 History Pravastatin Sodium [Pravachol] 40 mg PO HS #30 tab 09/04/19 10/30/19 Rx Gabapentin [Neurontin] 300 mg PO BID 10/06/19 10/30/19 History Baclofen [Lioresal] 10 mg PO TID PRN #21 tab 10/24/19 10/30/19 Rx diazePAM [Valium] 5 mg PO QID PRN 7 Days #28 tab 10/24/19 10/30/19 Rx oxyCODONE-APAP 10-325MG [Percocet 1 - 2 tab PO Q4H PRN 10/30/19 10/30/19 History 10-325 mg] Allergies Allergy/AdvReac Type Severity Reaction Status Date / Time haloperidol [From Haldol] AdvReac Hallucinati Verified 10/30/19 20:27 ons haloperidol lactate AdvReac Hallucinati Verified 10/30/19 20:27 [From Haldol] ons Physical Exam Vitals: Vital Signs Temp Pulse Resp BP Pulse Ox 11/01/19 15:16 97.9 F 98 20 119/78 98 11/01/19 15:11 113 H 11/01/19 11:06 20 94 L 11/01/19 11:05 98.6 F 113 H 20 134/83 86 L 11/01/19 08:21 98.3 F 115 H 18 133/65 95 11/01/19 03:30 116 H 20 128/86 90 L 11/01/19 00:00 110 H 20 156/94 94 L 10/31/19 20:00 97.6 F 108 H 20 160/98 93 L 10/31/19 19:28 101 H 18 145/93 96 10/31/19 19:14 101 H 18 143/91 95 10/31/19 18:59 97.1 F L 99 16 148/87 97 Intake and Output 11/01/19 11/01/19 11/01/19 06:59 14:59 22:59 Intake Total 480 Output Total 30 930 30 Balance -30 -450 -30 Intake: Oral 480 Output: Drainage 30 30 30 Right Anterior Neck 30 30 30 Urine 900 Other: Voiding Method Indwelling Catheter Indwelling Catheter Indwelling Catheter # Bowel Movements 0 Weight 84 kg GENERAL DESCRIPTION: Middle-aged male lying in bed, no distress. No tachypnea or accessory muscle of respiration use. HEENT: Shows Pallor , no scleral icterus. Oral mucous membrane is dry. No pharyngeal erythema or thrush NECK: Trachea central, no thyromegaly. Patient did have a cervical collar LUNGS: Unlabored breathing. Clear to auscultation anteriorly. No wheeze or crackle. HEART: S1, S2, regular rate and rhythm. No loud murmur ABDOMEN: Soft, no tenderness , guarding or rigidity, no organomegaly EXTREMITIES: No edema of feet. SKIN: No rash, no masses palpable. NEUROLOGICAL: The patient is awake, alert, oriented x3, mood and affect normal. Results CBC & Chem 7: 10/31/19 07:40 10/31/19 07:40 Labs: Abnormal Lab Results - Last 24 Hours (Table) 10/31/19 10/31/19 10/31/19 Range/Units 19:03 20:19 23:12 POC Glucose (mg/dL) 280 H 302 H 347 H (75-99) mg/dL 11/01/19 11/01/19 Range/Units 06:28 11:55 POC Glucose (mg/dL) 405 H 254 H (75-99) mg/dL Microbiology - Last 24 Hours (Table) 10/31/19 14:30 Gram Stain - Preliminary Back Wound Culture - Preliminary 10/31/19 14:29 Gram Stain - Preliminary Back Wound Culture - Preliminary 10/31/19 14:30 Anaerobic Culture - Preliminary Back 10/31/19 14:29 Anaerobic Culture - Preliminary Back Assessment and Plan Assessment: 1- patient is a 54-year-old male who is status post cervical spine surgery after a fracture , readmitted to the hospital after a fall with failure of the hardware and evidence of C7 epidural abscess in this patient who is status post removal of the hardware and drainage of the abscess culture has been obtained which are currently pending in view of the recent hospitalization and surgery will need to cover for the resistant gram-positive and gram-negative with a likely pathogen (1) Abscess in epidural space of cervical spine Current Visit: Yes Status: Acute Code(s): G06.1 - INTRASPINAL ABSCESS AND GRANULOMA SNOMED Code(s): 048172133 Plan: 1-blood cultures 1 2- Vancomycin pharmacy to dose target trough of 15 while watching his kidney function and Vanco trough closely 3- we'll add cefepime 2 g every 12 hours while waiting for the culture finalized 4- Baseline sed rate and CRP 5- He will need PICC line for outpatient IV antibiotic therapy We will follow on clinical condition and cultures to further adjust medication if needed Thank you for this consultation will follow this patient with you Time with Patient: Greater than 30
[2019-11-02] MEDS: oxyCODONE-APAP 10-325MG 1 EACH TAB PO PRN ×3 (07:16→22:00)
[2019-11-02 07:35] LABS: HCT 35.7 % (39.0-53.0); MCH 28.5 pg (25.0-35.0); MCHC 31.4 g/dL (31.0-37.0); MCV 90.8 fL (80.0-100.0); Mean Platelet Volume 7.4; Platelet Count 267 k/uL (150-450); RBC 3.93 m/uL (4.30-5.90); RDW 12.9 % (11.5-15.5); WBC 12.2 k/uL (3.8-10.6)
[2019-11-02 07:49] LABS: HGB 11.2 gm/dL (13.0-17.5)
[2019-11-02 08:03] LABS: African American GFR (CKD) >90 (>60 ml/min/1.73 sqM); Anion Gap 3 mmol/L; Blood Urea Nitrogen 14 mg/dL (9-20); Calcium 8.5 mg/dL (8.4-10.2); Carbon Dioxide 33 mmol/L (22-30); Chloride 99 mmol/L (98-107); Glucose 56 mg/dL (74-99); Non-African American GFR(CKD) >90 (>60 ml/min/1.73 sqM); Potassium 3.6 mmol/L (3.5-5.1); Sodium 135 mmol/L (137-145)
[2019-11-02 08:36] LABS: C Reactive Protein 206.8 mg/L (<10.0)
[2019-11-02 09:08] LABS: Erythrocyte Sedimentation Rate 96 mm/hr (0-15)
[2019-11-02] MEDS: QUEtiapine 200 MG TAB PO SCH ×3 (09:28→21:21)
[2019-11-02] MEDS: PANTOPRAZOLE 40 MG/10 ML VIAL IV SCH (09:47)
[2019-11-02] MEDS: METOPROLOL TARTRATE 25 MG TAB PO SCH ×2 (09:48→21:05)
[2019-11-02] MEDS: FAMOTIDINE 20 MG TAB PO SCH (09:48)
[2019-11-02] MEDS: lamoTRIgine 100 MG TAB PO SCH ×2 (09:48→21:06)
[2019-11-02] MEDS: FENOFIBRATE 160 MG TAB PO SCH (09:48)
[2019-11-02] MEDS: amLODIPine 5 MG TAB PO SCH (09:48)
[2019-11-02] MEDS: GABAPENTIN 300 MG CAP PO SCH ×2 (09:48→21:06)
[2019-11-02] MEDS: SENNOSIDES-DOCUSATE SODIUM 1 EACH TAB PO SCH (09:48)
[2019-11-02] MEDS: DULoxetine HCL 30 MG CAPSULE.DR PO SCH ×2 (09:48→21:06)
[2019-11-02] MEDS: CEFEPIME 2 GM in SODIUM CHLORIDE 0.9% 100 ML IVPB SCH ×2 (09:49→22:06)
[2019-11-02] MEDS: MULTIVITAMINS, THERA 1 EACH TAB PO SCH (09:50)
[2019-11-02] MEDS ORDERED: VANCOMYCIN TROUGH DUE 1 EACH MISC MISCELLANE ONE (11:00)
--- NOTE | 2019-11-02 11:46 | P.PN ---
Progress Note - Text Progress Note Date: 11/02/19 Orthopedic spine: History of present illness: Patient is a pleasant 54-year-old male seen at the bedside for follow-up evaluation in regards to his cervical spine. He is status post revision anterior cervical decompression and fusion of C6-T1 extending up to C5 with revision corpectomy of C7 with strut cage extending from C6-T1 and posterior cervical fusion C5-T2 performed on 10/31/2019. He currently has a hard cervical collar intact. He continues have pain in his surgical sites. He currently has a drain intact without difficulty at the anterior cervical surgical site. He is currently lying comfortably in bed but does complain of pain. He has not been out of bed recently. Patient states he has not been sleeping well however he has been significantly drowsy over the past couple days. Pathology report still pending for the cultures taken from the C7 anterior epidural space. Patient is being seen by Dr. Burton in infectious disease. Patient is currently on vancomycin. Patient continues to be seen by medicine for his other medical diagnoses including diabetes type 2 mellitus with insulin pump and uncontrolled hyperglycemia, essential hypertension, chronic low back pain, obesity, chronic nicotine dependence and COPD. Patient also has a recent admission for right scapular pain and shoulder pain with evidence of a deformity of the right and per scapula. He was been treated as well for right lower extremity leg pain with some abdominal sclerosis of the right proximal tibia. He's not currently complaining of any lower extremity leg pain. He does not currently have a hinged knee brace intact. Physical Exam Cervical Fusion: Status post surgical day number 2 Patient is currently lying comfortable in bed Patient is awake, alert, and oriented 3 Vital signs stable Good chest excursion with deep inspiration and expiration Dressing over the anterior surgical site is clean, dry, intact with drain intact Hard cervical collar intact Adequate but reduced range of motion of the cervical spine with adequate flexion, extension, and bilateral rotation Machine Molder strength, 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, interosseous strength, biceps strength, triceps strength, and shoulder strength positive sustained bilaterally Patient does have some chronic weakness and evidence of atrophy at the left upper extremity but has had significant improvement of active range of motion of the left upper extremity postoperatively Assessment: Status post anterior cervical decompression and fusion of C6-T1 extending up to C5 with revision corpectomy of C7 with structural cage extending from C6-T1 and posterior cervical fusion C5-T2 performed on 10/31/2019 Cervical pain Left upper extremity radiculopathy Bilateral upper extremity weakness greater on the left than the right Reason C7 burst fracture Recent anterior cervical decompression fusion C6-T1 with corpectomy of C5 Status post fall Diabetes type 2 mellitus with insulin pump uncontrolled hyperglycemia Essential hypertension Chronic low back pain Obesity Chronic nicotine dependence COPD Plan: 1. Patient to keep his hard cervical collar intact at all times 2. Ambulate as tolerated; work with Physical Therapy to increase mobilization 3. Continue pain control with IV Dilaudid and oral Percocet as well as Valium; will not currently plan to increase his narcotic pain medications even though he complains of pain as he has had some difficulty with drowsiness over the past couple days 4. Patient may shower with Optifoam Tegaderm dressings and hard cervical collar intact 5. Patient will continue be seen and examined by Dr. Burton in infectious disease who will manage his antibiotic medications; patient currently on vancomycin 6. Medical management can continue to manage patient for patient's other medical diagnoses 7. We will continue to follow the patient closely. Patient has had significant difficulty with mobility and care in the outpatient setting while at home. Will currently planned for him to discharge to a rehabilitation facility once cleared by multiple other medical providers. 8. Patient can follow-up with Rg Crisostomo PA-C or Dr. Jose Manuel Barger at [facility] in 1 weeks following discharge
[2019-11-02 12:27] LABS: Glucose,Whole Blood 81 mg/dL (75-99)
[2019-11-02 17:23] LABS: Glucose,Whole Blood 218 mg/dL (75-99)
--- NOTE | 2019-11-02 20:21 | P.PN ---
Progress Note - Text Progress Note Date: 11/02/19 History of presenting complaint: This is a 54-year-old patient who follows with Dr. thomas from [place]. Chronic stable medical conditions include diabetes mellitus type II on insulin pump.,GERD, hypertension, obstructive sleep apnea uses CPAP, chronic pancreatitis, bipolar disorder and chronic low back pain. 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 underwent cervical spine surgery by Dr. Shanks-on October 09. Has also had recently nondisplaced proximal tibia fracture being managed with a knee brace. Recently felt to have some light conditions of the bone. DrKranthi by oncology including a bone scan, skeletal survey, negative protein electrophoresis. No further workup per oncology. Also last admission seen by psychiatry recommended to cut back on narcotics. This occasion he had fallen backwards at home.found to have displacement of the internal fixation and graft at C6 to T1. Patient underwent surgery in October 30. With removal of hardware and revision fixation At multiple levels. Patient is a cervical collar and a drain in place. Today-patient had been rather lethargic. The sitting on the edge of bed with physical therapist. Causing some questions. Patient on Dilaudid, Valium, baclofen,. Because patient so drowsy hardly been eating. On the about 25%. Patient's sugar was only 56 this morning. Getting a cervical collar. Review of systems: Was done for constitutional, cardiovascular, GI, pulmonary. Muscular skeletal relevant finding as above Active Medications Acetaminophen (Tylenol Tab) 650 mg PO Q6HR PRN PRN Reason: Mild Pain or Fever > 100.5 Last Admin: 10/31/19 00:46 Dose: 650 mg Documented by: Albuterol Sulfate (Ventolin Nebulized) 2.5 mg INHALATION RT-Q4H PRN PRN Reason: Shortness Of Breath Amlodipine Besylate (Norvasc) 5 mg PO DAILY [facility] Last Admin: 11/02/19 09:48 Dose: 5 mg Documented by: Benzocaine/Menthol (Cepacol Lozenge) 1 each MUCOUS MEM Q4HR PRN PRN Reason: Sore Throat Bisacodyl (Dulcolax) 10 mg RECTAL DAILY PRN PRN Reason: Constipation Cyclobenzaprine HCl (Flexeril) 5 mg PO TID [facility] Dicyclomine HCl (Bentyl) 20 mg PO Q6H PRN PRN Reason: CRAMPS Duloxetine HCl (Cymbalta) 30 mg PO BID [facility] Last Admin: 11/02/19 09:48 Dose: 30 mg Documented by: Ergocalciferol (Vitamin D2) 50,000 unit PO Sa@0900 [facility] Last Admin: 10/31/19 08:10 Dose: Not Given Documented by: Famotidine (Pepcid) 40 mg PO DAILY [facility] Last Admin: 11/02/19 09:48 Dose: 40 mg Documented by: Fenofibrate (Lofibra) 160 mg PO DAILY [facility] Last Admin: 11/02/19 09:48 Dose: 160 mg Documented by: Gabapentin (Neurontin) 300 mg PO BID [facility] Last Admin: 11/02/19 09:48 Dose: 300 mg Documented by: Hydromorphone HCl (Dilaudid) 1 mg IVP Q4HR PRN PRN Reason: Pain Last Admin: 11/02/19 19:02 Dose: 1 mg Documented by: Hydromorphone HCl (Dilaudid) 1 mg IVP Q3HR PRN PRN Reason: Pain Last Admin: 11/02/19 05:03 Dose: 1 mg Documented by: Sodium Chloride (Saline 0.9%) 1,000 mls @ 75 mls/hr IV .[id number] [facility] Last Admin: 11/02/19 14:00 Dose: Not Given Documented by: Vancomycin HCl 1,500 mg/ (Sodium Chloride) 250 mls @ 125 mls/hr IVPB Q8H [facility] Last Admin: 11/02/19 13:05 Dose: 125 mls/hr Documented by: Cefepime HCl 2 gm/ Sodium (Chloride) 100 mls @ 25 mls/hr IVPB Q12HR [facility] Last Admin: 11/02/19 09:49 Dose: 25 mls/hr Documented by: Insulin Aspart (Novolog) 0 unit SQ [facility]; Protocol Last Admin: 11/02/19 19:39 Dose: Not Given Documented by: Insulin Detemir (Levemir) 60 unit SQ HS [facility] Lamotrigine (Lamictal) 200 mg PO BID [facility] Last Admin: 11/02/19 09:48 Dose: 200 mg Documented by: Magnesium Hydroxide (Milk Of Magnesia) 2,400 mg PO DAILY PRN PRN Reason: Constipation Metoprolol Tartrate (Lopressor) 25 mg PO BID [facility] Last Admin: 11/02/19 09:48 Dose: 25 mg Documented by: Montelukast Sodium (Singulair) 10 mg PO [facility] Last Admin: 11/01/19 20:34 Dose: 10 mg Documented by: Multivitamins (Theragran) 1 each PO DAILY [facility] Last Admin: 11/02/19 09:50 Dose: Not Given Documented by: Naloxone HCl (Narcan) 0.2 mg IV Q2M PRN PRN Reason: Opioid Reversal Ondansetron HCl (Zofran) 4 mg IVP Q8HR PRN PRN Reason: Nausea And Vomiting Last Admin: 10/30/19 22:14 Dose: 4 mg Documented by: Oxycodone/Acetaminophen (Percocet 10-325) 1 - 2 each PO Q4H PRN PRN Reason: Pain Last Admin: 11/02/19 13:04 Dose: 2 each Documented by: Pravastatin Sodium (Pravachol) 40 mg PO [facility] Last Admin: 11/01/19 20:34 Dose: 40 mg Documented by: Quetiapine Fumarate (Seroquel) 100 mg PO BID@0800,1200 [facility] Last Admin: 11/02/19 13:06 Dose: 100 mg Documented by: Quetiapine Fumarate (Seroquel) 300 mg PO [facility] Last Admin: 11/01/19 20:35 Dose: 300 mg Documented by: Senna/Docusate Sodium (Senokot-S) 4 each PO DAILY [facility] Last Admin: 11/02/19 09:48 Dose: 4 each Documented by: Trazodone HCl (Desyrel) 100 mg PO [facility] Last Admin: 11/01/19 20:34 Dose: 100 mg Documented by: Physical examination: VITAL SIGNS: 98.4, 99, 12, 130 276, 94% on 3 L GENERAL: Sitting at the edge of bed with physical therapist, lethargic but arousable EYES: Pupils equal. Conjunctiva normal. HEENT: External appearance of nose and ears normal, oral cavity grossly normal. NECK: Cervical collar in place-as drain in place. HEART: First and second heart sounds are normal; no edema. LUNGS: Respiratory rate increased, diminished breath sounds ABDOMEN: Soft, non-tenderness,, no guarding rigidity, liver spleen not palpable, no masses palpable. PSYCH: Lethargic-able to answer questions NEUROLOGICAL: Able to move his limbs INVESTIGATIONS, reviewed in the clinical context: White count 12.2 hemoglobin 11.2 potassium 3.6 creatinine 0.67, blood glucose 56, CRP 206.8 Previous testing White count 7.8 hemoglobin 14.7 potassium 4 creatinine 0.67 sodium 129 Accu-Cheks 405, 254, 151 Computed tomography scan of the spine showing dislocation of anterior cervical fusionand C7 increased kyphosis at C6-C7; fracture of the left C6 lamina Assessment: -Acute metabolic encephalopathy from medications. Patient getting Dilaudid, Brianne ium, baclofen. Patient other lethargic. Insisting on more pain medications. Barely able to keep himself awake. Barely eating. Becoming hypoglycemic. - October 10-C6 C7 T1 removal of bone fragments from fracture of C7, decompression fusion and plating-4 C7 fracture, cervical spine stenosis , myelopathy disc herniation: Now presented with trauma with Computed tomography scan of the spine showing dislocation of anterior cervical fusionand C7 increased kyphosis at C6-C7; fracture of the left C6 lamina-status post replacement and repair -Diabetes mellitus type 2 chronically insulin pump, uncontrolled with hyperglycemia, hypoglycemia -GERD -Essential hypertension -Obstructive sleep apnea uses a BiPAP machine -Bipolar disorder -Chronic low back pain -Obesity BMI 31.7 -Chronic nicotine dependence patient cigarette smoker -COPD in a current smoker -chronic pancreatitis. Plan: Patient is on IV cefepime and IV vancomycin. Will DC Valium. Also DC baclofen. Use Flexeril, which is less sedated and couldn't antispasmodic activity. Discussed this with the patient, Dr. Barger. Cutback dose of Levemir to 60 units.
[2019-11-02 20:57] LABS: Glucose,Whole Blood 296 mg/dL (75-99)
[2019-11-02] MEDS: PRAVASTATIN SODIUM 40 MG TAB PO SCH (21:05)
[2019-11-02] MEDS: MONTELUKAST 10 MG TAB PO SCH (21:05)
[2019-11-02] MEDS: CYCLOBENZAPRINE 5 MG TAB PO SCH (21:05)
[2019-11-02] MEDS: INSULIN DETEMIR (LEVEMIR) 100 UNIT/ML SYR SQ SCH (21:06)
[2019-11-02] MEDS: traZODone HCL 100 MG TAB PO SCH (21:06)
--- NOTE | 2019-11-02 22:30 | PN ---
PROGRESS NOTE DATE OF SERVICE: 11/02/2019 REASON FOR FOLLOWUP: C7 epidural abscess. INTERVAL HISTORY: The patient is currently afebrile. Pain to the neck area is currently controlled with pain medication. Denies having any chest pain or shortness of breath or cough. No nausea, no vomiting. No abdominal pain or diarrhea. PHYSICAL EXAMINATION: Blood pressure 136/76, pulse of 73, temperature 98.4. He is 93% on 3 L nasal cannula. General description is a middle-aged male lying in bed in no distress. RESPIRATORY SYSTEM: Unlabored breathing. Clear to auscultation anteriorly. HEART: S1, S2. Regular rate and rhythm. ABDOMEN: Soft. No tenderness. LABS: White count down to 12.2, BUN of 14, creatinine 0.67. Vancomycin is 19.2. Cultures are now showing coagulase-negative Staph. DIAGNOSTIC IMPRESSION AND PLAN: Patient with epidural abscess. Culture now showing a coagulase-negative Staph. Patient is covered with vancomycin. Will wait for the sensitivity. He will need a PICC line and at least 6 weeks of antibiotics. Continue with supportive care. MMODL / IJN: [id number] /
[2019-11-02] MEDS: ALBUTEROL NEBULIZED 2.5 MG/3 ML INHALATION PRN (22:43)
[2019-11-03] MEDS: VANCOMYCIN 1,500 MG in SODIUM CHLORIDE 0.9% 250 ML IVPB SCH ×3 (03:31→20:56)
[2019-11-03] MEDS: HYDROmorphone 1 MG/ML 1 ML SYRINGE IVP PRN ×5 (03:34→23:14)
[2019-11-03] MEDS: SODIUM CHLORIDE 0.9% 1,000 ML IV SCH ×2 (06:02→17:29)
[2019-11-03 06:17] LABS: Glucose,Whole Blood 200 mg/dL (75-99)
[2019-11-03] MEDS: oxyCODONE-APAP 10-325MG 1 EACH TAB PO PRN ×4 (06:28→21:31)
[2019-11-03] MEDS: INSULIN ASPART (NovoLOG) 100 UNIT/ML VIAL SQ SCH ×4 (06:29→21:31)
--- NOTE | 2019-11-03 09:01 | P.PN ---
Progress Note - Text Progress Note Date: 11/03/19 Orthopedic spine: History of present illness: Patient is a pleasant 54-year-old male seen at the bedside for follow-up evaluation in regards to his cervical spine. He is status post revision anterior cervical decompression and fusion of C6-T1 extending up to C5 with revision corpectomy of C7 with strut cage extending from C6-T1 and posterior cervical fusion C5-T2 performed on 10/31/2019. He currently has a hard cervical collar intact. He is very lethargic this morning. He is arousable and answer some questions but falls back asleep quickly. While wake does continue to complain of postoperative pain at the surgical sites. His anterior cervical surgical site drain was removed yesterday. Patient is currently lying comfortably in bed but does complain of pain. He has not been out of bed recently. Nursing states patient has refused to get out of bed and work with physical therapy. He currently has a Concepcion catheter intact as he states he cannot urinate while lying down but he refuses to get out of bed to urinate. Patient was plan for discharge to [facility] rehabilitation facility that they have denied taking him as he was previously admitted there and he was unwilling to work through any physical therapy while at the facility. Nursing states they're having difficulty with finding a facility that will accept him at the time of discharge. Patient does continue be seeing them by infectious disease. Epidural abscess cultures were coagulase-negative staph. Patient is currently on vancomycin. Infectious disease waiting for sensitivity. The plan for a PICC line at the time of discharge with at least 6 weeks of antibiotics. Patient continues to be seen by medicine for his other medical diagnoses including diabetes type 2 mellitus with insulin pump and uncontrolled hyperglycemia, essential hypertension, chronic low back pain, obesity, chronic nicotine dependence and COPD. Nursing states patient is having difficulty with glucose control as well. This will be managed by medicine. Patient also has a recent admission for right scapular pain and shoulder pain with evidence of a deformity of the right and per scapula. He was been treated as well for right lower extremity leg pain with some abdominal sclerosis of the right proximal tibia. He's not currently complaining of any lower extremity leg pain. He does not currently have a hinged knee brace intact. Physical Exam Cervical Fusion: Status post surgical day number 3 Patient is currently lying comfortable in bed Patient is awake, alert, and oriented 3 Vital signs stable Good chest excursion with deep inspiration and expiration Dressing over the anterior surgical site is clean, dry, intact with drain intact Hard cervical collar intact Adequate but reduced range of motion of the cervical spine with adequate flexi on, extension, and bilateral rotation [employer] strength, 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, interosseous strength, biceps strength, triceps strength, and shoulder strength positive sustained bilaterally Patient does have some chronic weakness and evidence of atrophy at the left upper extremity but has had significant improvement of active range of motion of the left upper extremity postoperatively Pertinent studies: Cervical epidural abscess culture: Coagulase-negative staph Assessment: Status post anterior cervical decompression and fusion of C6-T1 extending up to C5 with revision corpectomy of C7 with structural cage extending from C6-T1 and posterior cervical fusion C5-T2 performed on 10/31/2019 Cervical pain Left upper extremity radiculopathy Bilateral upper extremity weakness greater on the left than the right Recent C7 burst fracture Recent anterior cervical decompression fusion C6-T1 with corpectomy of C5 Status post fall Epidural abscess culture positive for coagulase-negative staph Diabetes type 2 mellitus with insulin pump uncontrolled hyperglycemia Essential hypertension Chronic low back pain Obesity Chronic nicotine dependence COPD Plan: 1. Patient to keep his hard cervical collar intact at all times 2. Ambulate as tolerated; work with Physical Therapy to increase mobilization; We did discuss the importance of increasing his mobility and ambulation. We discussed the importance that he should work with physical therapy to work to improve his mobility and ambulation. 3. Continue pain control with IV Dilaudid and oral Percocet; Valium has been discontinued; patient may use Flexeril as prescribed by medicine; will not currently plan to increase his narcotic pain medications as he continues to ask for his medicines frequently even though he complains of pain as he has had some difficulty with drowsiness over the past couple days; patient is lethargic but arousable today 4. Patient may shower with Optifoam Tegaderm dressings and hard cervical collar intact 5. Patient will continue be seen and examined by Dr. Burton in infectious disease who will manage his antibiotic medications; patient currently on vancomycin. Infectious diseases planning for PICC line placement. Patient will remain in the hospital until culture sensitivity is completed and PICC line is able to be placed. 6. Medical management can continue to manage patient for patient's other medical diagnoses including uncontrolled diabetes 7. We will continue to follow the patient closely. Patient has had significant difficulty with mobility and care in the outpatient setting while at home. Will currently planned for him to discharge to a rehabilitation facility once cleared by multiple other medical providers. This has been difficult to find a rehabilitation facility was accepting patient as he was previously discharged to [facility] but they will not except the patient as he was unwilling to work with therapy during his last admission. 8. Patient can follow-up with Rg Crisostomo PA-C or Dr. Jose Manuel Barger at [facility] in 1 weeks following discharge
[2019-11-03] MEDS: lamoTRIgine 100 MG TAB PO SCH ×2 (09:28→20:36)
[2019-11-03] MEDS: CEFEPIME 2 GM in SODIUM CHLORIDE 0.9% 100 ML IVPB SCH (09:28)
[2019-11-03] MEDS: FENOFIBRATE 160 MG TAB PO SCH (09:29)
[2019-11-03] MEDS: QUEtiapine 200 MG TAB PO SCH ×3 (09:29→20:37)
[2019-11-03] MEDS: SENNOSIDES-DOCUSATE SODIUM 1 EACH TAB PO SCH (09:29)
[2019-11-03] MEDS: DULoxetine HCL 30 MG CAPSULE.DR PO SCH ×2 (09:29→20:36)
[2019-11-03] MEDS: GABAPENTIN 300 MG CAP PO SCH ×2 (09:29→20:36)
[2019-11-03] MEDS: CYCLOBENZAPRINE 5 MG TAB PO SCH ×3 (09:29→20:36)
[2019-11-03] MEDS: MULTIVITAMINS, THERA 1 EACH TAB PO SCH (09:29)
[2019-11-03] MEDS: FAMOTIDINE 20 MG TAB PO SCH (09:29)
[2019-11-03] MEDS: METOPROLOL TARTRATE 25 MG TAB PO SCH ×2 (09:29→20:36)
[2019-11-03] MEDS: amLODIPine 5 MG TAB PO SCH (09:29)
[2019-11-03 11:38] LABS: Glucose,Whole Blood 94 mg/dL (75-99)
[2019-11-03 16:56] LABS: Glucose,Whole Blood 303 mg/dL (75-99)
--- NOTE | 2019-11-03 17:50 | PN ---
PROGRESS NOTE DATE OF SERVICE: 11/03/2019 REASON FOR FOLLOW UP: C7 epidural abscess. INTERVAL HISTORY: The patient is currently afebrile. Still complaining of significant pain to his back area. No chest pain or shortness of breath or cough. No nausea, no vomiting. No abdominal pain, no diarrhea. PHYSICAL EXAMINATION: Blood pressure is 98/56, pulse of 103, temperature 98.4. He is 95% on room air. General description is a middle-aged male, lying in bed in no distress. RESPIRATORY SYSTEM: Unlabored breathing, clear to auscultation anteriorly. HEART: S1, S2. Regular rate and rhythm. ABDOMEN: Soft, no tenderness. LABS: No new labs have been obtained today. Wound culture showing E coli is negative Staph, blood culture negative. DIAGNOSTIC IMPRESSION AND PLAN: Patient with C7 likely epidural abscess, status post surgery and drainage of the abscess and most of the hardware. The patient is covered with vancomycin, cefepime will be discontinued as no gram negative has been grown. PICC line will be ordered he will need at least 6 weeks of IV antibiotic therapy. Continue supportive care. MMODL / IJN: [id number] /
[2019-11-03] MEDS: traZODone HCL 100 MG TAB PO SCH (20:36)
[2019-11-03] MEDS: MONTELUKAST 10 MG TAB PO SCH (20:36)
[2019-11-03] MEDS: PRAVASTATIN SODIUM 40 MG TAB PO SCH (20:36)
[2019-11-03 21:12] LABS: Glucose,Whole Blood 291 mg/dL (75-99)
[2019-11-03] MEDS: INSULIN DETEMIR (LEVEMIR) 100 UNIT/ML SYR SQ SCH (21:31)
--- NOTE | 2019-11-03 22:17 | P.PN ---
Progress Note - Text Progress Note Date: 11/03/19 History of presenting complaint: This is a 54-year-old patient who follows with Dr. thomas from [place]. Chronic stable medical conditions include diabetes mellitus type II on insulin pump.,GERD, hypertension, obstructive sleep apnea uses CPAP, chronic pancreatitis, bipolar disorder and chronic low back pain. 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 underwent cervical spine surgery by Dr. Shanks-on October 09. Has also had recently nondisplaced proximal tibia fracture being managed with a knee brace. Recently felt to have some light conditions of the bone. DrKranthi by oncology including a bone scan, skeletal survey, negative protein electrophoresis. No further workup per oncology. Also last admission seen by psychiatry recommended to cut back on narcotics. This occasion he had fallen backwards at home.found to have displacement of the internal fixation and graft at C6 to T1. Patient underwent surgery in October 30. With removal of hardware and revision fixation At multiple levels. Patient is a cervical collar and a drain in place.patient's Valium was discontinued by me. Added Flexeril. Today-remains tired. answer questions. In a neck collar. Laying in bed.oral intake improving after lunch. Review of systems: Was done for constitutional, cardiovascular, GI, pulmonary. Muscular skeletal relevant finding as above Active Medications Acetaminophen (Tylenol Tab) 650 mg PO Q6HR PRN PRN Reason: Mild Pain or Fever > 100.5 Last Admin: 10/31/19 00:46 Dose: 650 mg Documented by: Albuterol Sulfate (Ventolin Nebulized) 2.5 mg INHALATION RT-Q4H PRN PRN Reason: Shortness Of Breath Last Admin: 11/02/19 22:43 Dose: 2.5 mg Documented by: Amlodipine Besylate (Norvasc) 5 mg PO DAILY [facility] Last Admin: 11/03/19 09:29 Dose: 5 mg Documented by: Benzocaine/Menthol (Cepacol Lozenge) 1 each MUCOUS MEM Q4HR PRN PRN Reason: Sore Throat Bisacodyl (Dulcolax) 10 mg RECTAL DAILY PRN PRN Reason: Constipation Cyclobenzaprine HCl (Flexeril) 5 mg PO TID [facility] Last Admin: 11/03/19 20:36 Dose: 5 mg Documented by: Dicyclomine HCl (Bentyl) 20 mg PO Q6H PRN PRN Reason: CRAMPS Duloxetine HCl (Cymbalta) 30 mg PO BID [facility] Last Admin: 11/03/19 20:36 Dose: 30 mg Documented by: Ergocalciferol (Vitamin D2) 50,000 unit PO Sa@0900 [facility] Last Admin: 10/31/19 08:10 Dose: Not Given Documented by: Famotidine (Pepcid) 40 mg PO DAILY [facility] Last Admin: 11/03/19 09:29 Dose: 40 mg Documented by: Fenofibrate (Lofibra) 160 mg PO DAILY [facility] Last Admin: 11/03/19 09:29 Dose: 160 mg Documented by: Gabapentin (Neurontin) 300 mg PO BID [facility] Last Admin: 11/03/19 20:36 Dose: 300 mg Documented by: Hydromorphone HCl (Dilaudid) 1 mg IVP Q4HR PRN PRN Reason: Pain Last Admin: 11/03/19 18:25 Dose: 1 mg Documented by: Hydromorphone HCl (Dilaudid) 1 mg IVP Q3HR PRN PRN Reason: Pain Last Admin: 11/03/19 09:32 Dose: 1 mg Documented by: Sodium Chloride (Saline 0.9%) 1,000 mls @ 75 mls/hr IV .[id number] [facility] Last Admin: 11/03/19 17:29 Dose: 75 mls/hr Documented by: Vancomycin HCl 1,500 mg/ (Sodium Chloride) 250 mls @ 125 mls/hr IVPB Q8H [facility] Last Admin: 11/03/19 20:56 Dose: 125 mls/hr Documented by: Insulin Aspart (Novolog) 0 unit SQ [facility]; Protocol Last Admin: 11/03/19 21:31 Dose: 5 unit Documented by: Insulin Detemir (Levemir) 60 unit SQ HS [facility] Last Admin: 11/03/19 21:31 Dose: 60 unit Documented by: Lamotrigine (Lamictal) 200 mg PO BID [facility] Last Admin: 11/03/19 20:36 Dose: 200 mg Documented by: Magnesium Hydroxide (Milk Of Magnesia) 2,400 mg PO DAILY PRN PRN Reason: Constipation Metoprolol Tartrate (Lopressor) 25 mg PO BID [facility] Last Admin: 11/03/19 20:36 Dose: 25 mg Documented by: Montelukast Sodium (Singulair) 10 mg PO HS [facility] Last Admin: 11/03/19 20:36 Dose: 10 mg Documented by: Multivitamins (Theragran) 1 each PO DAILY [facility] Last Admin: 11/03/19 09:29 Dose: 1 each Documented by: Naloxone HCl (Narcan) 0.2 mg IV Q2M PRN PRN Reason: Opioid Reversal Ondansetron HCl (Zofran) 4 mg IVP Q8HR PRN PRN Reason: Nausea And Vomiting Last Admin: 10/30/19 22:14 Dose: 4 mg Documented by: Oxycodone/Acetaminophen (Percocet 10-325) 1 - 2 each PO Q4H PRN PRN Reason: Pain Last Admin: 11/03/19 21:31 Dose: 2 each Documented by: Pravastatin Sodium (Pravachol) 40 mg PO [facility] Last Admin: 11/03/19 20:36 Dose: 40 mg Documented by: Quetiapine Fumarate (Seroquel) 100 mg PO BID@0800,1200 [facility] Last Admin: 11/03/19 12:34 Dose: 100 mg Documented by: Quetiapine Fumarate (Seroquel) 300 mg PO HS [facility] Last Admin: 11/03/19 20:37 Dose: 300 mg Documented by: Senna/Docusate Sodium (Senokot-S) 4 each PO DAILY [facility] Last Admin: 11/03/19 09:29 Dose: 4 each Documented by: Trazodone HCl (Desyrel) 100 mg PO [facility] Last Admin: 11/03/19 20:36 Dose: 100 mg Documented by: Physical examination: VITAL SIGNS: 98.5, 90, 16, 108/69, 97% on 2 L GENERAL: laying in bed, tired but arousable and answering questions EYES: Pupils equal. Conjunctiva normal. HEENT: External appearance of nose and ears normal, oral cavity grossly normal. NECK: Cervical collar in place-as drain in place. HEART: First and second heart sounds are normal; no edema. LUNGS: Respiratory rate increased, diminished breath sounds ABDOMEN: Soft, non-tenderness,, no guarding rigidity, liver spleen not palpable, no masses palpable. PSYCH: tired but answering questions appropriately NEUROLOGICAL: weakness in the arms. INVESTIGATIONS, reviewed in the clinical context: Accu-Cheks 200, 94, 303 Previous testing White count 7.8 hemoglobin 14.7 potassium 4 creatinine 0.67 sodium 129 Accu-Cheks 405, 254, 151 Computed tomography scan of the spine showing dislocation of anterior cervical fusionand C7 increased kyphosis at C6-C7; fracture of the left C6 lamina Assessment: -Acute metabolic encephalopathy from medications. Patient getting Dilaudid, Valium, baclofen. Patient other lethargic. Insisting on more pain medications. Barely able to keep himself awake. Barely eating. Becoming hypoglycemic. - October 10-C6 C7 T1 removal of bone fragments from fracture of C7, decompression fusion and plating-4 C7 fracture, cervical spine stenosis , myelopathy disc herniation: Now presented with trauma with Computed tomography scan of the spine showing dislocation of anterior cervical fusionand C7 increased kyphosis at C6-C7; fracture of the left C6 lamina-status post replacement and repair -Diabetes mellitus type 2 chronically insulin pump, uncontrolled with hyperglycemia, hypoglycemia -GERD -Essential hypertension -Obstructive sleep apnea uses a BiPAP machine -Bipolar disorder -Chronic low back pain -Obesity BMI 31.7 -Chronic nicotine dependence patient cigarette smoker -COPD in a current smoker -chronic pancreatitis. Plan: patient remains on IV vancomycin. As ordered intake is improved. Additional 12 units of Levemir tonight increased to 72 from tomorrow evening.encouraged to be out of bed. PTOT. Thank you Dr. Shanks
[2019-11-03] MEDS ORDERED: INSULIN DETEMIR (LEVEMIR) 100 UNIT/ML SYR SQ SCH (22:30)
[2019-11-04] MEDS: VANCOMYCIN 1,500 MG in SODIUM CHLORIDE 0.9% 250 ML IVPB SCH ×3 (04:11→20:12)
[2019-11-04] MEDS: HYDROmorphone 1 MG/ML 1 ML SYRINGE IVP PRN ×2 (04:12→09:04)
[2019-11-04] MEDS: SODIUM CHLORIDE 0.9% 1,000 ML IV SCH ×3 (04:18→20:13)
[2019-11-04] MEDS: oxyCODONE-APAP 10-325MG 1 EACH TAB PO PRN ×3 (05:42→20:32)
[2019-11-04 06:22] LABS: Glucose,Whole Blood 191 mg/dL (75-99)
[2019-11-04] MEDS: INSULIN ASPART (NovoLOG) 100 UNIT/ML VIAL SQ SCH ×4 (06:41→21:28)
[2019-11-04 07:29] LABS: African American GFR (CKD) >90 (>60 ml/min/1.73 sqM); Anion Gap 3 mmol/L; Blood Urea Nitrogen 14 mg/dL (9-20); Carbon Dioxide 32 mmol/L (22-30); Chloride 99 mmol/L (98-107); Glucose 177 mg/dL (74-99); Non-African American GFR(CKD) >90 (>60 ml/min/1.73 sqM); Potassium 3.8 mmol/L (3.5-5.1); Sodium 134 mmol/L (137-145)
[2019-11-04] MEDS: SENNOSIDES-DOCUSATE SODIUM 1 EACH TAB PO SCH (08:38)
[2019-11-04] MEDS: FAMOTIDINE 20 MG TAB PO SCH (08:38)
[2019-11-04] MEDS: DULoxetine HCL 30 MG CAPSULE.DR PO SCH ×2 (08:38→20:10)
[2019-11-04] MEDS: METOPROLOL TARTRATE 25 MG TAB PO SCH ×2 (08:38→20:11)
[2019-11-04] MEDS: GABAPENTIN 300 MG CAP PO SCH ×2 (08:38→20:10)
[2019-11-04] MEDS: lamoTRIgine 100 MG TAB PO SCH ×2 (08:39→20:09)
[2019-11-04] MEDS: CYCLOBENZAPRINE 5 MG TAB PO SCH ×3 (08:39→20:32)
[2019-11-04] MEDS: amLODIPine 5 MG TAB PO SCH (08:39)
[2019-11-04] MEDS: QUEtiapine 200 MG TAB PO SCH ×3 (08:40→20:30)
[2019-11-04] MEDS: FENOFIBRATE 160 MG TAB PO SCH (08:40)
[2019-11-04] MEDS: MULTIVITAMINS, THERA 1 EACH TAB PO SCH (08:40)
[2019-11-04] MEDS ORDERED: LIDOCAINE 1% INJ 10MG/ML (20 ML MDV) ONE (09:01)
[2019-11-04] MEDS ORDERED: LIDOCAINE 1% INJ 10MG/ML (20 ML MDV) SQ ONE (09:33)
[2019-11-04 11:44] LABS: Glucose,Whole Blood 178 mg/dL (75-99)
--- NOTE | 2019-11-04 12:29 | IR ---
EXAMINATION TYPE: IR cvc insert >=5 years DATE OF EXAM: 11/04/2019 COMPARISON: NONE CLINICAL HISTORY: Infection, long-term antibiotics. MUSEUM SECURITY CHIEF: Dr. Luciana Guthrie PROCEDURE: The procedure was discussed with the patient. The risks, complications, benefits, and alternatives we re discussed and any questions were answered. Informed consent was obtained. The patient was placed supine. Maximal barrier technique utilized. After informed consent, the skin o verlying the left basilic vein was localized with ultrasound and noted to be compressible and patent. An ultrasound image was obtained and submitted on the patient's chart. Sterile technique utilized w ith the ultrasound machine. The skin overlying was prepped and draped and Lidocaine used for local an esthesia. Access was gained to the vein under ultrasound guidance with a 21 gauge needle and a 0.018 inch wire was advanced. A skin esme was made with a scalpel. Access site was dilated with Peel-Away s tanna. 4 FR single lumen catheter tailored to the appropriate length of 53 cm and advanced such that the distal tip is at the cavoatrial junction. Spot image was obtained verifying PICC placement. Jumana ter was fixed to the skin and a sterile dressing was placed following hemostasis. Catheter was aspira cate and flushed with saline. Patient was discharged from the radiology department in stable condition without immediate complication. Fluoro time: 0.2 minutes Fluoroscopic images obtained: 9 IMPRESSION: Status post ultrasound-guided and fluoroscopic-guided PICC placement, ready for use.
--- NOTE | 2019-11-04 13:49 | P.PN ---
Progress Note - Text Progress Note Date: 11/04/19 Postoperative day #4 Patient is seen and examined today at bedside. he is asleep in a chair. He is easily arousable but he falls right back asleep. The patient has some pain around the surgical site as expected. He has significantcomplains about pain when he is awake but he essentially falls right back to sleep. It seems that the Pain is being controlled with medication. his wound cultures came back with staph epidermidis. He is plan on getting a PICC line and long-term IV antibiotics per infectious disease. Physical Exam Afebrile with stable vital signs Abdomen is soft nontender. Chest has good excursion deep and space expiration The incision site is clean dry and intact. No erythema there is no purulence.his neck is soft and supple. There is no acute drainage. The hard collar appears to be fitting appropriately. Extremities have not had neurologic change from prior to surgery.he has weakness at his bilateral upper extremity is worse on the left the right. His most weakness is along his hand function is with his triceps. Calves and thighs were soft nontender without evidence of DVT. Assessment/Plan Postoperative day #4 status post revision open reduction internal fixation corpectomy C6 to T1 for his thoracic burst fracture and subsequent hardware failure due to a fall. He also underwent anterior and cervical posterior stabilization with fusion C5 to C7 Patient is progressing slowly from the surgery. he is starting to become more mobile but is quite limited for him. His upper extremities still have significant weakness and it is difficult to see if there is much improvement. He should continue with his physical therapy and occupational therapy to continue to try to maximize his function is upper extremities. We will continue to increase the patient's mobilization with therapy. We will continue pain control with oral or IV medications. hopefully we can continue with his oral medications as patient is significantly sleepy. Would like to try to increase the amount of sedation for him. Infectious disease is following him for appropriate long-term IV antibiotics has his cultures came back positive with staph epidermidis. He is awaiting appropriate placement for long-term residential or rehab. We'll continue to follow patient closely.
--- NOTE | 2019-11-04 15:23 | P.CONS ---
History of Present Illness - Chief Complaint Gait disturbance - History of Present Illness I had the opportunity to see patient for inpatient rehab consultation with regard to gait disturbance. Patient admitted to [facility] October 29 history of fall and neck injury. Workup revealed C6 and/or C7 fracture. Patient to value by Dr. Barger and underwent C6/7 corpectomy with fusion C5-T1. Patient noted weaknesses including especially left arm. Seen by Dr. Burton for possible epidural infection. Seen medically by Dr. Cross and Reji. C-spine x-ray noted with anterior fusion. CT of head negative. CT of C-spine with left C6 laminar fracture. OT reports minimal assistance for grooming a. Apparently unable to assess any other ADL tasks but did recommend inpatient rehab. PT reports maximal assistance for bed mobility and 2 person mod assist for transfers and standing. Previous functional history: Patient states that he 65 but is actually 54. He got tired answering questions after this first 1. Review of Systems Review of systems: As gleaned from chart and exam of patient's ENT: Denies sneezes or discharge. Eyes: Denies discharge or photophobia. Cardiac: Denies chest pain or palpitation. Pulmonary: Denies cough or shortness of breath. Gastrointestinal: Denies nausea, emesis, constipation, diarrhea. Genitourinary: Denies discharge or frequency. Musculoskeletal: Denies muscle or bone aches. Neurologic: Confusion and left arm weakness. Endocrine: Denies shakes or sweats. Oncology: Denies cancers. Dermatologic: Denies rash, itching, pruritus. ALLERGY/immunology: Denies sneezes, rashes. 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, pancreatitis History of Any Multi-Drug Resistant Organisms: MRSA Year Discovered:: 11/03/2008 MDRO Source:: spine Past Surgical History: Cholecystectomy Additional Past Surgical History / Comment(s): spinal fusion at L4 and L5, pancreatic surgery for pseudocyst w/stent Past Anesthesia/Blood Transfusion Reactions: No Reported Reaction Past Psychological History: Anxiety, Bipolar, Depression Smoking Status: Current every day smoker Past Alcohol Use History: None Reported Past Drug Use History: None Reported - Past Family History Mother Family Medical History: Hypertension Additional Family Medical History / Comment(s): Pt states mother had no health problems. Father Family Medical History: No Reported History Additional Family Medical History / Comment(s): pt stated his father is - had no medicals problems and of natural causes. Medications and Allergies Home Medications Medication Instructions Recorded Confirmed Type Fenofibrate Nanocrystallized 145 mg PO DAILY 08/07/13 10/30/19 History [Fenofibrate] Metoprolol Tartrate [Lopressor] 25 mg PO BID 08/07/13 10/30/19 History Montelukast [Singulair] 10 mg PO HS 08/07/13 10/30/19 History QUEtiapine FUMARATE [SEROquel] 300 mg PO HS 10/01/16 10/30/19 History lamoTRIgine 200 mg PO BID 10/01/16 10/30/19 History Multivitamins, Thera [Multivitamin 1 tab PO DAILY 10/22/16 10/30/19 History (formulary)] amLODIPine [Norvasc] 5 mg PO DAILY 10/22/16 10/30/19 History Ergocalciferol [Vitamin D2 50,000 unit PO SA 10/31/18 10/30/19 History (DRISDOL)] Insulin Glargine,Hum.rec.anlog 75 unit SQ HS 10/31/18 10/30/19 History [Basaglar Kwikpen U-100] Melatonin 10 mg PO HS 10/31/18 10/30/19 History Albuterol Sulfate [Ventolin HFA] 2 puff INHALATION RT-Q4H PRN 09/02/19 10/30/19 History DULoxetine HCL [Cymbalta] 30 mg PO BID 09/02/19 10/30/19 History Diclofenac Sodium Gel [Voltaren 2 gm TOPICAL QID PRN 09/02/19 10/30/19 History Gel] Dicyclomine [Bentyl] 20 mg PO Q6H PRN 09/02/19 10/30/19 History Famotidine 40 mg PO DAILY 09/02/19 10/30/19 History INSULIN ASPART (NovoLOG) [NovoLOG See Protocol SQ QID 09/02/19 10/30/19 History (formulary)] QUEtiapine [SEROquel] 100 mg PO BID@0800,1200 09/02/19 10/30/19 History traZODone HCL [Desyrel] 100 mg PO HS 09/02/19 10/30/19 History Pravastatin Sodium [Pravachol] 40 mg PO HS #30 tab 09/04/19 10/30/19 Rx Gabapentin [Neurontin] 300 mg PO BID 10/06/19 10/30/19 History Baclofen [Lioresal] 10 mg PO TID PRN #21 tab 10/24/19 10/30/19 Rx diazePAM [Valium] 5 mg PO QID PRN 7 Days #28 tab 10/24/19 10/30/19 Rx oxyCODONE-APAP 10-325MG [Percocet 1 - 2 tab PO Q4H PRN 10/30/19 10/30/19 History 10-325 mg] Allergies Allergy/AdvReac Type Severity Reaction Status Date / Time haloperidol [From Haldol] AdvReac Hallucinati Verified 10/30/19 20:27 ons haloperidol lactate AdvReac Hallucinati Verified 10/30/19 20:27 [From Haldol] ons Physical Exam Vitals: Vital Signs Temp Pulse Resp BP Pulse Ox 11/04/19 08:00 98.6 F 114 H 18 110/75 97 11/04/19 04:00 98.4 F 80 19 101/65 94 L 11/04/19 00:00 98 F 83 19 91/61 93 L 11/03/19 20:00 97.9 F 97 19 108/71 97 11/03/19 16:04 98.4 F 103 H 20 98/56 94 L Intake and Output 11/04/19 11/04/19 11/04/19 06:59 14:59 22:59 Intake Total 800 Balance 800 Intake: Oral 800 Other: Voiding Method Urinal Urinal Skin: Good color, texture, turgor. General: Medium build and comfortable appearance. Head: Normocephalic, atraumatic. Eyes: Symmetric. Pupils equal round. Ears: Symmetric. Hearing within normal limits. Mouth: Clear. Neck: Supple. Carotid without bruit. Cardiac: Regular rate and rhythm. Lungs: Clear anteriorly and posteriorly. Abdomen: Soft active nontender. Extremities: Normal tone. Neurological: Mental status: Confused, cooperative, pleasant. Poor historian. Cranial nerves: Symmetric facial tone and trapezius. Motor: Normal strength and isolation right arm and both legs. Left arm poor. Sensation: Intact throughout. DTRs: Symmetric and equal throughout. Mobility: Patient slumped in Mita chair and did not attempt to stand by myself. Results CBC & Chem 7: 11/02/19 06:08 11/04/19 07:00 Labs: Abnormal Lab Results - Last 24 Hours (Table) 11/03/19 11/03/19 11/04/19 Range/Units 16:44 21:10 06:20 Sodium (137-145) mmol/L Carbon Dioxide (22-30) mmol/L Glucose (74-99) mg/dL POC Glucose (mg/dL) 303 H 291 H 191 H (75-99) mg/dL 11/04/19 11/04/19 Range/Units 07:00 11:38 Sodium 134 L (137-145) mmol/L Carbon Dioxide 32 H (22-30) mmol/L Glucose 177 H (74-99) mg/dL POC Glucose (mg/dL) 178 H (75-99) mg/dL Microbiology - Last 24 Hours (Table) 11/02/19 10:48 Blood Culture - Preliminary Blood No Growth after 48 hours 10/31/19 14:30 Anaerobic Culture - Preliminary Back 10/31/19 14:30 Gram Stain - Final Back Wound Culture - Final Staphylococcus epidermidis 10/31/19 14:29 Gram Stain - Final Back Wound Culture - Final Staphylococcus epidermidis Assessment and Plan (1) Abscess in epidural space of cervical spine Current Visit: Yes Status: Acute Code(s): G06.1 - INTRASPINAL ABSCESS AND GRANULOMA SNOMED Code(s): 532733330 (2) Failed hardware Current Visit: Yes Status: Acute Code(s): HMY0887 - SNOMED Code(s): 204879272 Plan: Impression: 1. Walking difficulty with C6 burst fracture and resultant left arm weakness. 2. Confusion. 3. Epidural abscess. 4. Diabetes. 5. Hypertension. 6. Sleep apnea. 7. Osteoarthritis. Comments and plan: At this time OT ongoing. We'll await PT. We'll add speech therapy for communication cognition, which appears poor on my exam. Rehab prognosis currently guarded because of poor ability to interact and cooperate with exam.
[2019-11-04 16:28] LABS: Glucose,Whole Blood 74 mg/dL (75-99)
--- NOTE | 2019-11-04 16:44 | PN ---
PROGRESS NOTE DATE OF SERVICE: 11/04/2019 REASON FOR FOLLOWUP: C7 epidural abscess. INTERVAL HISTORY: Patient is currently afebrile. The patient is breathing comfortably. The patient denies having any chest pain or shortness of breath or cough. No nausea, no vomiting, pain to the neck no worsening and no diarrhea. PHYSICAL EXAMINATION: Blood pressure 110/75 with a pulse of 114, temperature 98.6, he is 97% on 4 L nasal cannula. General description is a middle-aged male, up in the chair in no distress. RESPIRATORY SYSTEM: Unlabored breathing, clear to auscultation anteriorly. HEART: S1, S2. Regular rate and rhythm. ABDOMEN: Soft, no tenderness. LABS: BUN of 14, creatinine 0.84. The white blood culture positive for Staph epi. Blood culture has been negative. DIAGNOSTIC IMPRESSION AND PLAN: Patient with C7 epidural abscess, status post drainage and more of the hardware. The patient is covered with vancomycin, pharmacy to dose. Will get a PICC line. Plan for a total of 6 week antibiotic therapy. Continue supportive care. MMODL / IJN: [id number] /
--- NOTE | 2019-11-04 17:01 | P.PN ---
Progress Note - Text Progress Note Date: 11/04/19 History of presenting complaint: This is a 54-year-old patient who follows with Dr. thomas from [place]. Chronic stable medical conditions include diabetes mellitus type II on insulin pump.,GERD, hypertension, obstructive sleep apnea uses CPAP, chronic pancreatitis, bipolar disorder and chronic low back pain. 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 underwent cervical spine surgery by Dr. Shanks-on October 09. Has also had recently nondisplaced proximal tibia fracture being managed with a knee brace. Recently felt to have some light conditions of the bone. DrKranthi by oncology including a bone scan, skeletal survey, negative protein electrophoresis. No further workup per oncology. Also last admission seen by psychiatry recommended to cut back on narcotics. This occasion he had fallen backwards at home.found to have displacement of the internal fixation and graft at C6 to T1. Patient underwent surgery in October 30. With removal of hardware and revision fixation At multiple levels. Local abscess was cleaned out. Cultures growing Staphylococcus epidermidis. Has a cervical collar and a drain in place.Valium was discontinued by me for patient being lethargic. . Added Flexeril. Today-sitting up in a chair. Weak in the arms. Trying to feed himself. More awake. Review of systems: Was done for constitutional, cardiovascular, GI, pulmonary. Muscular skeletal relevant finding as above Active Medications Acetaminophen (Tylenol Tab) 650 mg PO Q6HR PRN PRN Reason: Mild Pain or Fever > 100.5 Last Admin: 10/31/19 00:46 Dose: 650 mg Documented by: Albuterol Sulfate (Ventolin Nebulized) 2.5 mg INHALATION RT-Q4H PRN PRN Reason: Shortness Of Breath Last Admin: 11/02/19 22:43 Dose: 2.5 mg Documented by: Amlodipine Besylate (Norvasc) 5 mg PO DAILY [facility] Last Admin: 11/04/19 08:39 Dose: 5 mg Documented by: Benzocaine/Menthol (Cepacol Lozenge) 1 each MUCOUS MEM Q4HR PRN PRN Reason: Sore Throat Bisacodyl (Dulcolax) 10 mg RECTAL DAILY PRN PRN Reason: Constipation Cyclobenzaprine HCl (Flexeril) 5 mg PO TID [facility] Last Admin: 11/04/19 08:39 Dose: 5 mg Documented by: Dicyclomine HCl (Bentyl) 20 mg PO Q6H PRN PRN Reason: CRAMPS Duloxetine HCl (Cymbalta) 30 mg PO BID [facility] Last Admin: 11/04/19 08:38 Dose: 30 mg Documented by: Ergocalciferol (Vitamin D2) 50,000 unit PO Sa@0900 [facility] Last Admin: 10/31/19 08:10 Dose: Not Given Documented by: Famotidine (Pepcid) 40 mg PO DAILY [facility] Last Admin: 11/04/19 08:38 Dose: 40 mg Documented by: Fenofibrate (Lofibra) 160 mg PO DAILY [facility] Last Admin: 11/04/19 08:40 Dose: 160 mg Documented by: Gabapentin (Neurontin) 300 mg PO BID [facility] Last Admin: 11/04/19 08:38 Dose: 300 mg Documented by: Hydromorphone HCl (Dilaudid) 1 mg IVP Q4HR PRN PRN Reason: Pain Last Admin: 11/04/19 09:04 Dose: 1 mg Documented by: Hydromorphone HCl (Dilaudid) 1 mg IVP Q3HR PRN PRN Reason: Pain Last Admin: 11/03/19 09:32 Dose: 1 mg Documented by: Sodium Chloride (Saline 0.9%) 1,000 mls @ 75 mls/hr IV .[id number] [facility] Last Admin: 11/04/19 04:18 Dose: Not Given Documented by: Vancomycin HCl 1,500 mg/ (Sodium Chloride) 250 mls @ 125 mls/hr IVPB Q8H [facility] Last Admin: 11/04/19 12:44 Dose: 125 mls/hr Documented by: Insulin Aspart (Novolog) 0 unit SQ ACHS [facility]; Protocol Last Admin: 11/04/19 12:45 Dose: 2 unit Documented by: Insulin Detemir (Levemir) 72 unit SQ HS [facility] Lamotrigine (Lamictal) 200 mg PO BID [facility] Last Admin: 11/04/19 08:39 Dose: 200 mg Documented by: Magnesium Hydroxide (Milk Of Magnesia) 2,400 mg PO DAILY PRN PRN Reason: Constipation Metoprolol Tartrate (Lopressor) 25 mg PO BID [facility] Last Admin: 11/04/19 08:38 Dose: 25 mg Documented by: Miscellaneous Information (Vancomycin Trough Due) 0 each MISCELLANE DIRECTED ONE Stop: 11/05/19 11:01 Montelukast Sodium (Singulair) 10 mg PO [facility] Last Admin: 11/03/19 20:36 Dose: 10 mg Documented by: Multivitamins (Theragran) 1 each PO DAILY [facility] Last Admin: 11/04/19 08:40 Dose: 1 each Documented by: Naloxone HCl (Narcan) 0.2 mg IV Q2M PRN PRN Reason: Opioid Reversal Ondansetron HCl (Zofran) 4 mg IVP Q8HR PRN PRN Reason: Nausea And Vomiting Last Admin: 10/30/19 22:14 Dose: 4 mg Documented by: Oxycodone/Acetaminophen (Percocet 10-325) 1 - 2 each PO Q4H PRN PRN Reason: Pain Last Admin: 11/04/19 12:43 Dose: 2 each Documented by: Pravastatin Sodium (Pravachol) 40 mg PO [facility] Last Admin: 11/03/19 20:36 Dose: 40 mg Documented by: Quetiapine Fumarate (Seroquel) 100 mg PO BID@0800,1200 [facility] Last Admin: 11/04/19 12:48 Dose: 100 mg Documented by: Quetiapine Fumarate (Seroquel) 300 mg PO [facility] Last Admin: 11/03/19 20:37 Dose: 300 mg Documented by: Senna/Docusate Sodium (Senokot-S) 4 each PO DAILY [facility] Last Admin: 11/04/19 08:38 Dose: 4 each Documented by: Tamsulosin HCl (Flomax) 0.4 mg PO PC-SUPPER [facility] Trazodone HCl (Desyrel) 100 mg PO [facility] Last Admin: 11/03/19 20:36 Dose: 100 mg Documented by: Physical examination: VITAL SIGNS: 98.6, 114, 18, 110/75, 97% 4 L GENERAL: Sitting up in a chair, tired, try to eat his lunch. EYES: Pupils equal. Conjunctiva normal. HEENT: External appearance of nose and ears normal, oral cavity grossly normal. NECK: Cervical collar in place-as drain in place. HEART: First and second heart sounds are normal; no edema. LUNGS: Respiratory rate increased, diminished breath sounds ABDOMEN: Soft, non-tenderness,, no guarding rigidity, liver spleen not palpable, no masses palpable. PSYCH: Answering questions NEUROLOGICAL: weakness in the arms. INVESTIGATIONS, reviewed in the clinical context: Potassium 3.8 creatinine 0.84 Accu-Cheks 178, 74 Previous testing White count 7.8 hemoglobin 14.7 potassium 4 creatinine 0.67 sodium 129 Accu-Cheks 405, 254, 151 Computed tomography scan of the spine showing dislocation of anterior cervical fusionand C7 increased kyphosis at C6-C7; fracture of the left C6 lamina Assessment: -Acute metabolic encephalopathy from medications. Patient getting Dilaudid, Valium, baclofen. Patient other lethargic. Insisting on more pain medications. Barely able to keep himself awake. Barely eating. Becoming hypoglycemic. - October 10-C6 C7 T1 removal of bone fragments from fracture of C7, decompression fusion and plating-4 C7 fracture, cervical spine stenosis , myelopathy disc herniation: Now presented with trauma with Computed tomography scan of the spine showing dislocation of anterior cervical fusionand C7 increased kyphosis at C6-C7; fracture of the left C6 lamina-status post replacement and repair. -C7 epidural abscess that was cleared out. Cultures positive for Staphylococcus epidermidis. -Diabetes mellitus type 2 chronically insulin pump, uncontrolled with hyperglycemia, hypoglycemia -GERD -Essential hypertension -Obstructive sleep apnea uses a BiPAP machine -Bipolar disorder -Chronic low back pain -Obesity BMI 31.7 -Chronic nicotine dependence patient cigarette smoker -COPD in a current smoker -chronic pancreatitis. Plan: patient remains on IV vancomycin. As ordered intake is improved. Other medications to continue. Discussed with the nurse to give patient finger foods. Patient seen by Dr. Mario for inpatient rehab. Thank you Dr. Shanks
[2019-11-04] MEDS: TAMSULOSIN 0.4 MG CAP.ER.24H PO SCH (18:04)
[2019-11-04 19:57] LABS: Glucose,Whole Blood 56 mg/dL (75-99)
[2019-11-04] MEDS: PRAVASTATIN SODIUM 40 MG TAB PO SCH (20:10)
[2019-11-04] MEDS: traZODone HCL 100 MG TAB PO SCH (20:11)
[2019-11-04 20:12] LABS: Glucose,Whole Blood 70 mg/dL (75-99)
[2019-11-04] MEDS: MONTELUKAST 10 MG TAB PO SCH (20:30)
[2019-11-04] MEDS: INSULIN DETEMIR (LEVEMIR) 100 UNIT/ML SYR SQ SCH (21:28)
[2019-11-05] MEDS: HYDROmorphone 1 MG/ML 1 ML SYRINGE IVP PRN ×3 (04:12→15:08)
[2019-11-05] MEDS: VANCOMYCIN 1,500 MG in SODIUM CHLORIDE 0.9% 250 ML IVPB SCH ×2 (05:21→12:00)
[2019-11-05] MEDS: oxyCODONE-APAP 10-325MG 1 EACH TAB PO PRN ×2 (05:23→22:06)
[2019-11-05 06:54] LABS: Glucose,Whole Blood 118 mg/dL (75-99)
[2019-11-05] MEDS: INSULIN ASPART (NovoLOG) 100 UNIT/ML VIAL SQ SCH ×4 (07:24→21:16)
[2019-11-05] MEDS: SENNOSIDES-DOCUSATE SODIUM 1 EACH TAB PO SCH (08:13)
[2019-11-05] MEDS: MULTIVITAMINS, THERA 1 EACH TAB PO SCH (08:13)
[2019-11-05] MEDS: lamoTRIgine 100 MG TAB PO SCH ×2 (08:13→21:08)
[2019-11-05] MEDS: METOPROLOL TARTRATE 25 MG TAB PO SCH ×2 (08:13→21:07)
[2019-11-05] MEDS: FAMOTIDINE 20 MG TAB PO SCH (08:13)
[2019-11-05] MEDS: CYCLOBENZAPRINE 5 MG TAB PO SCH ×3 (08:13→21:07)
[2019-11-05] MEDS: GABAPENTIN 300 MG CAP PO SCH ×2 (08:14→21:08)
[2019-11-05] MEDS: FENOFIBRATE 160 MG TAB PO SCH (08:14)
[2019-11-05] MEDS: amLODIPine 5 MG TAB PO SCH (08:14)
[2019-11-05] MEDS: QUEtiapine 200 MG TAB PO SCH ×3 (08:14→21:11)
--- NOTE | 2019-11-05 10:34 | P.PN ---
Progress Note - Text Progress Note Date: 11/05/19 Postoperative day #5 Patient is seen and examined today at bedside. patient is very sleepy but is easily arousable. The awls right back asleep when talking to him for degenerative moment or 2. He tries to follow some commands when he is awake. his great difficulty trying to get any movement in bed or trying to sit up. Physical Exam Afebrile with stable vital signs Abdomen is soft nontender. Chest has good excursion deep and space expiration The incision site is clean dry and intact. No erythema there is no purulence.the joint appeared to be any drainage or erythema. Extremities have not had neurologic change from prior to surgery.he still has severe weakness at his bilateral upper extremity is worse on the left than right. He has significant weakness of his left hand as well as left tricep. he is very lethargic. History difficulty trying to get up out of bed or trying to sit up at all. He falls right back asleep. He is able to wiggle his feet and toes. Calves and thighs were soft nontender without evidence of DVT. Assessment/Plan Postoperative day #5 status post revision of his cervical corpectomy due to her traumatic burst fracture at C7 and subsequent reinjury due to another fall. He underwent anterior and posterior cervical spinal fusion from C5 to C7 which a ppears stable Patient is progressing very slowly. He is so lethargic that is difficult for him to participate in any sort of activities. We will see if the medicine has some ideas to change his medication profile so that he can be more interactive with his daily duties and therapy and his mobilization. We will continue to increase the patient's mobilization with therapy. We will continue pain control with oral or IV medications, but should try to changes in his medication so he is more awake and alert. Dr. Mario's note is appreciated from rehab. Certainly the patient will need to be more proactive and involved in his rehabilitation if he is able to rehab. We'll continue to follow patient closely.
[2019-11-05] MEDS ORDERED: VANCOMYCIN TROUGH DUE 1 EACH MISC MISCELLANE ONE (11:00)
[2019-11-05 12:12] LABS: Glucose,Whole Blood 249 mg/dL (75-99)
[2019-11-05] MEDS: DULoxetine HCL 30 MG CAPSULE.DR PO SCH ×2 (12:36→23:16)
[2019-11-05] MEDS ORDERED: VANCOMYCIN IV PER PHARMACY 1 EACH MISC MISCELLANE PRN (12:53)
[2019-11-05 15:00] VITALS: BMI 33.4
[2019-11-05 16:49] LABS: Glucose,Whole Blood 242 mg/dL (75-99)
[2019-11-05] MEDS: TAMSULOSIN 0.4 MG CAP.ER.24H PO SCH (17:13)
--- NOTE | 2019-11-05 17:46 | P.PN ---
Progress Note - Text Progress Note Date: 11/05/19 History of presenting complaint: This is a 54-year-old patient who follows with Dr. thomas from [place]. Chronic stable medical conditions include diabetes mellitus type II on insulin pump.,GERD, hypertension, obstructive sleep apnea uses CPAP, chronic pancreatitis, bipolar disorder and chronic low back pain. 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 underwent cervical spine surgery by Dr. Shanks-on October 09. Has also had recently nondisplaced proximal tibia fracture being managed with a knee brace. Recently felt to have some light conditions of the bone. DrKranthi by oncology including a bone scan, skeletal survey, negative protein electrophoresis. No further workup per oncology. Also last admission seen by psychiatry recommended to cut back on narcotics. This occasion he had fallen backwards at home.found to have displacement of the internal fixation and graft at C6 to T1. Patient underwent surgery in October 30. With removal of hardware and revision fixation At multiple levels. Local abscess was cleaned out. Cultures growing Staphylococcus epidermidis. Has a cervical collar and a drain in place.Valium was discontinued by me for patient being lethargic. . Added Flexeril.patient ordered finger foods. Because arms are weak. Today-reclining in bed. Eating. Communicating well. . Arm weakness is present..cervical collar in place Review of systems: Was done for constitutional, cardiovascular, GI, pulmonary. Muscular skeletal relevant finding as above Active Medications Acetaminophen (Tylenol Tab) 650 mg PO Q6HR PRN PRN Reason: Mild Pain or Fever > 100.5 Last Admin: 10/31/19 00:46 Dose: 650 mg Documented by: Albuterol Sulfate (Ventolin Nebulized) 2.5 mg INHALATION RT-Q4H PRN PRN Reason: Shortness Of Breath Last Admin: 11/02/19 22:43 Dose: 2.5 mg Documented by: Amlodipine Besylate (Norvasc) 5 mg PO DAILY [facility] Last Admin: 11/05/19 08:14 Dose: 5 mg Documented by: Benzocaine/Menthol (Cepacol Lozenge) 1 each MUCOUS MEM Q4HR PRN PRN Reason: Sore Throat Bisacodyl (Dulcolax) 10 mg RECTAL DAILY PRN PRN Reason: Constipation Cyclobenzaprine HCl (Flexeril) 5 mg PO TID [facility] Last Admin: 11/05/19 15:09 Dose: 5 mg Documented by: Dicyclomine HCl (Bentyl) 20 mg PO Q6H PRN PRN Reason: CRAMPS Duloxetine HCl (Cymbalta) 30 mg PO BID [facility] Last Admin: 11/05/19 12:36 Dose: 30 mg Documented by: Ergocalciferol (Vitamin D2) 50,000 unit PO Sa@0900 [facility] Last Admin: 10/31/19 08:10 Dose: Not Given Documented by: Famotidine (Pepcid) 40 mg PO DAILY [facility] Last Admin: 11/05/19 08:13 Dose: 40 mg Documented by: Fenofibrate (Lofibra) 160 mg PO DAILY [facility] Last Admin: 11/05/19 08:14 Dose: 160 mg Documented by: Gabapentin (Neurontin) 300 mg PO BID [facility] Last Admin: 11/05/19 08:14 Dose: 300 mg Documented by: Hydromorphone HCl (Dilaudid) 1 mg IVP Q4HR PRN PRN Reason: Pain Last Admin: 11/05/19 15:08 Dose: 1 mg Documented by: Hydromorphone HCl (Dilaudid) 1 mg IVP Q3HR PRN PRN Reason: Pain Last Admin: 11/03/19 09:32 Dose: 1 mg Documented by: Sodium Chloride (Saline 0.9%) 1,000 mls @ 75 mls/hr IV .[id number] [facility] Last Admin: 11/04/19 20:13 Dose: 75 mls/hr Documented by: Insulin Aspart (Novolog) [address] [facility]; Protocol Last Admin: 11/05/19 17:13 Dose: 4 unit Documented by: Insulin Detemir (Levemir) 72 unit SQ HS [facility] Last Admin: 11/04/19 21:28 Dose: Not Given Documented by: Lamotrigine (Lamictal) 200 mg PO BID [facility] Last Admin: 11/05/19 08:13 Dose: 200 mg Documented by: Magnesium Hydroxide (Milk Of Magnesia) 2,400 mg PO DAILY PRN PRN Reason: Constipation Metoprolol Tartrate (Lopressor) 25 mg PO BID [facility] Last Admin: 11/05/19 08:13 Dose: 25 mg Documented by: Miscellaneous Information (Pharmacy To Dose Iv Vancomycin) 0 each MISCELLANE DIRECTED PRN PRN Reason: PER PHARMACY PROTOCOL Montelukast Sodium (Singulair) 10 mg PO [facility] Last Admin: 11/04/19 20:30 Dose: Not Given Documented by: Multivitamins (Theragran) 1 each PO DAILY [facility] Last Admin: 11/05/19 08:13 Dose: 1 each Documented by: Naloxone HCl (Narcan) 0.2 mg IV Q2M PRN PRN Reason: Opioid Reversal Ondansetron HCl (Zofran) 4 mg IVP Q8HR PRN PRN Reason: Nausea And Vomiting Last Admin: 10/30/19 22:14 Dose: 4 mg Documented by: Oxycodone/Acetaminophen (Percocet 10-325) 1 - 2 each PO Q4H PRN PRN Reason: Pain Last Admin: 11/05/19 05:23 Dose: 2 each Documented by: Pravastatin Sodium (Pravachol) 40 mg PO [facility] Last Admin: 11/04/19 20:10 Dose: 40 mg Documented by: Quetiapine Fumarate (Seroquel) 100 mg PO BID@0800,1200 [facility] Last Admin: 11/05/19 12:36 Dose: 100 mg Documented by: Quetiapine Fumarate (Seroquel) 300 mg PO [facility] Last Admin: 11/04/19 20:30 Dose: 300 mg Documented by: Senna/Docusate Sodium (Senokot-S) 4 each PO DAILY [facility] Last Admin: 11/05/19 08:13 Dose: 4 each Documented by: Tamsulosin HCl (Flomax) 0.4 mg PO PC-SUPPER [facility] Last Admin: 11/05/19 17:13 Dose: 0.4 mg Documented by: Trazodone HCl (Desyrel) 100 mg PO [facility] Last Admin: 11/04/19 20:11 Dose: 100 mg Documented by: Physical examination: VITAL SIGNS: 98.7, 104, 18, 145/78, 91% on 3 L GENERAL: propped up in bed, awake, eating EYES: Pupils equal. Conjunctiva normal. HEENT: External appearance of nose and ears normal, oral cavity grossly normal. NECK: Cervical collar in place-as drain in place. HEART: First and second heart sounds are normal; no edema. LUNGS: Respiratory rate increased, diminished breath sounds ABDOMEN: Soft, non-tenderness,, no guarding rigidity, liver spleen not palpable, no masses palpable. PSYCH: Answering questions NEUROLOGICAL: weakness in the arms. INVESTIGATIONS, reviewed in the clinical context: Accu-Cheks 118, 249, 242 Previous testing White count 7.8 hemoglobin 14.7 potassium 4 creatinine 0.67 sodium 129 Accu-Cheks 405, 254, 151 Computed tomography scan of the spine showing dislocation of anterior cervical fusionand C7 increased kyphosis at C6-C7; fracture of the left C6 lamina Assessment: -Acute metabolic encephalopathy from medications. Patient getting Dilaudid, Valium, baclofen. Patient other lethargic. Insisting on more pain medications. Barely able to keep himself awake. Barely eating. Becoming hypoglycemic.- improved after stopping Valium and baclofen. - October 10-C6 C7 T1 removal of bone fragments from fracture of C7, decompression fusion and plating-4 C7 fracture, cervical spine stenosis , myelopathy disc herniation: Now presented with trauma with Computed tomography scan of the spine showing dislocation of anterior cervical fusionand C7 increased kyphosis at C6-C7; fracture of the left C6 lamina-status post replacement and repair. -C7 epidural abscess that was cleared out. Cultures positive for Staphylococcus epidermidis. -Diabetes mellitus type 2 chronically insulin pump, uncontrolled with hyperglycemia, hypoglycemia -GERD -Essential hypertension -Obstructive sleep apnea uses a BiPAP machine -Bipolar disorder -Chronic low back pain -Obesity BMI 31.7 -Chronic nicotine dependence patient cigarette smoker -COPD in a current smoker -chronic pancreatitis. -Bilateral upper extremity weakness . Plan: patient remains on IV vancomycin. continue current medication treatment plan. PT OT working with the case. Patient on finger foods.cutback IV Dilaudid 0.5 every 3hours when necessary Thank you Dr. Shanks
--- NOTE | 2019-11-05 19:40 | PN ---
PROGRESS NOTE DATE OF SERVICE: 11/05/2019 REASON FOR FOLLOWUP: C7 deep epidural abscess. INTERVAL HISTORY: The patient is currently afebrile, has been complaining of pain to the neck area. The patient denies having any chest pain or shortness of breath or cough. No nausea, no vomiting, no abdominal pain or diarrhea. PHYSICAL EXAMINATION: Blood pressure 154/78 with a pulse of 102, temperature 98.9. He is 94% on 3 L nasal cannula. General description is a middle-aged male lying in bed in no distress. RESPIRATORY SYSTEM: Unlabored breathing. Clear to auscultation anteriorly. HEART: S1, S2. Regular rate and rhythm. ABDOMEN: Soft. No tenderness. LABS: Vancomycin trough is elevated. DIAGNOSTIC IMPRESSION AND PLAN: Patient with a C7 epidural abscess, status post surgery and some drainage with removal of the hardware. Patient at this time continues vancomycin; however, the dose needs to be cut back to keep the trough around 15. Kidney function to be monitored closely and continue with supportive care. MMODL / IJN: [id number] /
[2019-11-05] MEDS: HYDROmorphone 0.5 MG/0.5 ML SYRINGE IVP PRN (19:57)
[2019-11-05 20:16] LABS: Glucose,Whole Blood 232 mg/dL (75-99)
[2019-11-05] MEDS: SODIUM CHLORIDE 0.9% 1,000 ML IV SCH (21:06)
[2019-11-05] MEDS: PRAVASTATIN SODIUM 40 MG TAB PO SCH (21:08)
[2019-11-05] MEDS: traZODone HCL 100 MG TAB PO SCH (21:08)
[2019-11-05] MEDS: MONTELUKAST 10 MG TAB PO SCH (21:08)
[2019-11-05] MEDS: INSULIN DETEMIR (LEVEMIR) 100 UNIT/ML SYR SQ SCH (21:16)
[2019-11-06] MEDS: HYDROmorphone 0.5 MG/0.5 ML SYRINGE IVP PRN ×2 (05:19→08:13)
[2019-11-06] MEDS: oxyCODONE-APAP 10-325MG 1 EACH TAB PO PRN ×2 (06:19→17:40)
[2019-11-06 07:16] LABS: Glucose,Whole Blood 62 mg/dL (75-99)
[2019-11-06 07:28] LABS: Glucose,Whole Blood 73 mg/dL (75-99)
[2019-11-06] MEDS: INSULIN ASPART (NovoLOG) 100 UNIT/ML VIAL SQ SCH ×4 (07:50→20:27)
[2019-11-06] MEDS: DULoxetine HCL 30 MG CAPSULE.DR PO SCH ×2 (07:51→20:19)
[2019-11-06] MEDS: QUEtiapine 200 MG TAB PO SCH ×3 (07:52→20:18)
[2019-11-06] MEDS: FAMOTIDINE 20 MG TAB PO SCH (07:53)
[2019-11-06] MEDS: amLODIPine 5 MG TAB PO SCH (07:53)
[2019-11-06] MEDS: METOPROLOL TARTRATE 25 MG TAB PO SCH ×2 (07:54→20:18)
[2019-11-06] MEDS: CYCLOBENZAPRINE 5 MG TAB PO SCH ×3 (07:54→22:06)
[2019-11-06] MEDS: MULTIVITAMINS, THERA 1 EACH TAB PO SCH (07:54)
[2019-11-06] MEDS: SENNOSIDES-DOCUSATE SODIUM 1 EACH TAB PO SCH (07:54)
[2019-11-06] MEDS: FENOFIBRATE 160 MG TAB PO SCH (07:55)
[2019-11-06] MEDS: lamoTRIgine 100 MG TAB PO SCH ×2 (07:55→20:18)
[2019-11-06] MEDS: GABAPENTIN 300 MG CAP PO SCH ×2 (08:03→20:17)
--- NOTE | 2019-11-06 09:12 | P.PN ---
Progress Note - Text Progress Note Date: 11/06/19 Orthopedic spine: History of present illness: Patient is a pleasant 54-year-old male seen at the bedside for follow-up evaluation in regards to his cervical spine. He is status post revision anterior cervical decompression and fusion of C6-T1 extending up to C5 with revision corpectomy of C7 with strut cage extending from C6-T1 and posterior cervical fusion C5-T2 performed on 10/31/2019. He currently has a hard cervical collar intact. Today he is much more awake, alert, and oriented. He is able to answer some questions appropriate. Physical therapy is currently present at the bedside. He states this morning he has been able to ambulate to the restroom. He is complaining of less pain at the surgical sites this morning. Patient was plan for discharge to [facility] rehabilitation facility that they have denied taking him as he was previously admitted there and he was unwilling to work through any physical therapy while at the facility. He has been evaluated by Dr. Ulrich for possible inpatient rehab but did not qualify initially due to his lethargic state and inability to work with physical therapy. We had a long discussion of the bedside this morning about working with therapy to try to increase his mobility and ambulation to wear and we would be able to get him discharged to a rehabilitation facility. Patient does state he does not feel he would be safe at home and feels rehab for a few days would not be long enough. He also states he does not currently feel his symptoms are well enough controlled to be discharged today. We did discuss in detail daily to be discharged from a medical standpoint and infectious disease standpoint. He has had a PICC line placed in the left upper extremity. Epidural abscess cultures were finalize for Staphylococcus epidermidis. Patient continues to be on vancomycin as controlled by infectious disease. Patient continues to be seen by medicine for his other medical diagnoses including diabetes type 2 mellitus with insulin pump and uncontrolled hyperglycemia, essential hypertension, chronic low back pain, obesity, chronic nicotine dependence and COPD. medicine has been managing his medications. Patient also has a recent admission for right scapular pain and shoulder pain with evidence of a deformity of the right and per scapula. He was been treated as well for right lower extremity leg pain with some abdominal sclerosis of the right proximal tibia. He's not currently complaining of any lower extremity leg pain. He does not currently have a hinged knee brace intact. He is not currently complaining of pain at his right scapula. Physical Exam Cervical Fusion: Status post surgical day number 6 Patient is currently sitting upright at the bedside Patient is awake, alert, and oriented 3; he is answering questions appropriate ly Vital signs stable Good chest excursion with deep inspiration and expiration Dressing over the anterior and posterior surgical sites are clean, dry, and intact; no active drainage from the surgical sites Hard cervical collar intact Adequate but reduced range of motion of the cervical spine with adequate flexion, extension, and bilateral rotation Occupational Therapy Co Director strength, 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, interosseous strength, biceps strength, triceps strength, and shoulder strength positive sustained bilaterally Patient does have some chronic weakness and evidence of atrophy at the left upper extremity but has had significant improvement of active range of motion of the left upper extremity postoperatively Pertinent studies: Cervical epidural abscess culture: Staphylococcus epidermidis Assessment: Status post anterior cervical decompression and fusion of C6-T1 extending up to C5 with revision corpectomy of C7 with structural cage extending from C6-T1 and posterior cervical fusion C5-T2 performed on 10/31/2019 Cervical pain Left upper extremity radiculopathy Bilateral upper extremity weakness greater on the left than the right Recent C7 burst fracture Recent anterior cervical decompression fusion C6-T1 with corpectomy of C5 Status post fall Epidural abscess culture positive for coagulase-negative staph Diabetes type 2 mellitus with insulin pump uncontrolled hyperglycemia Essential hypertension Chronic low back pain Obesity Chronic nicotine dependence COPD Plan: 1. Patient to keep his hard cervical collar intact at all times 2. Ambulate as tolerated; work with Physical Therapy to increase mobilization; We did discuss the importance of increasing his mobility and ambulation. We discussed the importance that he should work with physical therapy to work to improve his mobility and ambulation. 3. Continue medications for pain control as controlled by medicine. Patient has been extremely lethargic postoperatively but has had significant improvement and is currently sitting upright answering questions appropriately. Continue with medications as prescribed by medicine. 4. Patient may shower with Optifoam Tegaderm dressings and hard cervical collar intact 5. Patient will continue be seen and examined by Dr. Burton in infectious disease who will manage his antibiotic medications; patient currently on van comycin. PICC line has been placed. 6. Medical management can continue to manage patient for patient's other medical diagnoses including uncontrolled diabetes and pain control 7. We will continue to follow the patient closely. Patient has had significant difficulty with mobility and care in the outpatient setting while at home. Will currently planned for him to discharge to a rehabilitation facility once cleared by multiple other medical providers. This has been difficult to find a rehabilitation facility was accepting patient as he was previously discharged to [facility] but they will not except the patient as he was unwilling to work with therapy during his last admission. He has been examined by Dr. Ulrich but did not qualify for inpatient rehab initially is a patient was lethargic and unable/willing to work with physical therapy. He is much more awake, alert, and oriented today. If he is able to continue to improve and is willing to work with physical therapy is possible he could be discharged to inpatient rehabilitation facility per recommendations and approval by Dr. Ulrich. 8. Patient can follow-up with Rg Crisostomo PA-C or Dr. Jose Manuel Barger at [facility] in 1-2 weeks following discharge
[2019-11-06 09:47] LABS: Vancomycin,Random 14.5 ug/mL
[2019-11-06 11:30] LABS: Glucose,Whole Blood 136 mg/dL (75-99)
[2019-11-06] MEDS ORDERED: NAPROXEN 250 MG TAB PO STA (11:32)
[2019-11-06] MEDS: SODIUM CHLORIDE 0.9% 1,000 ML IV SCH ×2 (12:12→20:28)
[2019-11-06] MEDS: VANCOMYCIN 1,500 MG in SODIUM CHLORIDE 0.9% 250 ML IVPB SCH (14:41)
[2019-11-06] MEDS: NAPROXEN 250 MG TAB PO SCH ×2 (16:24→22:42)
[2019-11-06 16:28] LABS: Glucose,Whole Blood 164 mg/dL (75-99)
--- NOTE | 2019-11-06 17:28 | PN ---
PROGRESS NOTE DATE OF SERVICE: 11/06/2019 REASON FOR FOLLOWUP: C7 epidural abscess. INTERVAL HISTORY: Patient is currently afebrile. Pain to the neck is currently controlled. No chest pain. No cough. No nausea. No abdominal pain or diarrhea. PHYSICAL EXAMINATION: Blood pressure 110/65 with a pulse of 103, temperature 98.2. He is 94% on 3 L nasal cannula. General description is a middle-aged male, up in the chair in no distress. RESPIRATORY SYSTEM: Unlabored breathing, clear to auscultation anteriorly. HEART: S1, S2. Regular rate and rhythm. ABDOMEN: Soft, no tenderness. LABS: White count is 14.5, blood culture negative. DIAGNOSTIC IMPRESSION AND PLAN: Patient with a C7 epidural abscess status post surgical drainage and removal of the hardware. The patient is currently covered with vancomycin that will be continued for now. Plan will be for 6 weeks of antibiotics with weekly monitor CBC, BMP and sed rate. Continue supportive care. MMODL / IJN: [id number] /
[2019-11-06] MEDS: TAMSULOSIN 0.4 MG CAP.ER.24H PO SCH (17:41)
[2019-11-06 20:11] LABS: Glucose,Whole Blood 220 mg/dL (75-99)
[2019-11-06] MEDS: traZODone HCL 100 MG TAB PO SCH (20:17)
[2019-11-06] MEDS: PRAVASTATIN SODIUM 40 MG TAB PO SCH (20:18)
[2019-11-06] MEDS: MONTELUKAST 10 MG TAB PO SCH (20:18)
[2019-11-06] MEDS: INSULIN DETEMIR (LEVEMIR) 100 UNIT/ML SYR SQ SCH (20:27)
--- NOTE | 2019-11-06 21:19 | P.PN ---
Progress Note - Text Progress Note Date: 11/06/19 History of presenting complaint: This is a 54-year-old patient who follows with Dr. thomas from [place]. Chronic stable medical conditions include diabetes mellitus type II on insulin pump.,GERD, hypertension, obstructive sleep apnea uses CPAP, chronic pancreatitis, bipolar disorder and chronic low back pain. 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 underwent cervical spine surgery by Dr. Chaudharion October 09. Has also had recently nondisplaced proximal tibia fracture being managed with a knee brace. Recently felt to have some light conditions of the bone. DrKranthi by oncology including a bone scan, skeletal survey, negative protein electrophoresis. No further workup per oncology. Also last admission seen by psychiatry recommended to cut back on narcotics. This occasion he had fallen backwards at home.found to have displacement of the internal fixation and graft at C6 to T1. Patient underwent surgery in October 30. With removal of hardware and revision fixation At multiple levels. Local abscess was cleaned out. Cultures growing Staphylococcus epidermidis. Has a cervical collar and a drain in place.Valium was discontinued by me for patient being lethargic. . Added Flexeril.patient ordered finger foods. Because arms are weak. Today-laying in bed. Laying in bed, lethargic, arousable. At least 3-4 times I would talk to him he would respond to me that he would doze off. Review of systems: Was done for constitutional, cardiovascular, GI, pulmonary. Muscular skeletal relevant finding as above Active Medications Acetaminophen (Tylenol Tab) 650 mg PO Q6HR PRN PRN Reason: Mild Pain or Fever > 100.5 Last Admin: 10/31/19 00:46 Dose: 650 mg Documented by: Albuterol Sulfate (Ventolin Nebulized) 2.5 mg INHALATION RT-Q4H PRN PRN Reason: Shortness Of Breath Last Admin: 11/02/19 22:43 Dose: 2.5 mg Documented by: Amlodipine Besylate (Norvasc) 5 mg PO DAILY [facility] Last Admin: 11/06/19 07:53 Dose: 5 mg Documented by: Benzocaine/Menthol (Cepacol Lozenge) 1 each MUCOUS MEM Q4HR PRN PRN Reason: Sore Throat Bisacodyl (Dulcolax) 10 mg RECTAL DAILY PRN PRN Reason: Constipation Cyclobenzaprine HCl (Flexeril) 5 mg PO TID [facility] Last Admin: 11/06/19 16:23 Dose: 5 mg Documented by: Dicyclomine HCl (Bentyl) 20 mg PO Q6H PRN PRN Reason: CRAMPS Duloxetine HCl (Cymbalta) 30 mg PO BID [facility] Last Admin: 11/06/19 20:19 Dose: 30 mg Documented by: Ergocalciferol (Vitamin D2) 50,000 unit PO Sa@0900 [facility] Last Admin: 10/31/19 08:10 Dose: Not Given Documented by: Famotidine (Pepcid) 40 mg PO DAILY [facility] Last Admin: 11/06/19 07:53 Dose: 40 mg Documented by: Fenofibrate (Lofibra) 160 mg PO DAILY [facility] Last Admin: 11/06/19 07:55 Dose: 160 mg Documented by: Gabapentin (Neurontin) 300 mg PO BID [facility] Last Admin: 11/06/19 20:17 Dose: 300 mg Documented by: Sodium Chloride (Saline 0.9%) 1,000 mls @ 75 mls/hr IV .[id number] [facility] Last Admin: 11/06/19 20:28 Dose: 75 mls/hr Documented by: Vancomycin HCl 1,500 mg/ (Sodium Chloride) 250 mls @ 125 mls/hr IVPB Q16H [facility] Last Admin: 11/06/19 14:41 Dose: 125 mls/hr Documented by: Insulin Aspart (Novolog) 0 unit SQ [facility]; Protocol Last Admin: 11/06/19 20:27 Dose: 3 unit Documented by: Insulin Detemir (Levemir) 72 unit SQ [facility] Last Admin: 11/06/19 20:27 Dose: 72 unit Documented by: Lamotrigine (Lamictal) 200 mg PO BID [facility] Last Admin: 11/06/19 20:18 Dose: 200 mg Documented by: Magnesium Hydroxide (Milk Of Magnesia) 2,400 mg PO DAILY PRN PRN Reason: Constipation Metoprolol Tartrate (Lopressor) 25 mg PO BID [facility] Last Admin: 11/06/19 20:18 Dose: 25 mg Documented by: Montelukast Sodium (Singulair) 10 mg PO [facility] Last Admin: 11/06/19 20:18 Dose: 10 mg Documented by: Multivitamins (Theragran) 1 each PO DAILY [facility] Last Admin: 11/06/19 07:54 Dose: 1 each Documented by: Naloxone HCl (Narcan) 0.2 mg IV Q2M PRN PRN Reason: Opioid Reversal Naproxen (Naprosyn) 250 mg PO TID [facility] Last Admin: 11/06/19 16:24 Dose: 250 mg Documented by: Ondansetron HCl (Zofran) 4 mg IVP Q8HR PRN PRN Reason: Nausea And Vomiting Last Admin: 10/30/19 22:14 Dose: 4 mg Documented by: Oxycodone/Acetaminophen (Percocet 10-325) 1 - 2 each PO Q4H PRN PRN Reason: Pain Last Admin: 11/06/19 17:40 Dose: 1 each Documented by: Pravastatin Sodium (Pravachol) 40 mg PO [facility] Last Admin: 11/06/19 20:18 Dose: 40 mg Documented by: Quetiapine Fumarate (Seroquel) 100 mg PO BID@0800,1200 [facility] Last Admin: 11/06/19 12:14 Dose: 100 mg Documented by: Quetiapine Fumarate (Seroquel) 300 mg PO [facility] Last Admin: 11/06/19 20:18 Dose: 300 mg Documented by: Senna/Docusate Sodium (Senokot-S) 4 each PO DAILY [facility] Last Admin: 11/06/19 07:54 Dose: 4 each Documented by: Tamsulosin HCl (Flomax) 0.4 mg PO PC-SUPPER [facility] Last Admin: 11/06/19 17:41 Dose: 0.4 mg Documented by: Trazodone HCl (Desyrel) 100 mg PO [facility] Last Admin: 11/06/19 20:17 Dose: 100 mg Documented by: Physical examination: VITAL SIGNS: 98.2, 103, 18, 103/67, 94% on 3 L GENERAL: Laying in bed, sleepy but arousable EYES: Pupils equal. Conjunctiva normal. HEENT: External appearance of nose and ears normal, oral cavity grossly normal. NECK: Cervical collar in place-as drain in place. HEART: First and second heart sounds are normal; no edema. LUNGS: Respiratory rate increased, diminished breath sounds ABDOMEN: Soft, non-tenderness,, no guarding rigidity, liver spleen not palpable, no masses palpable. PSYCH: Lethargic but able to answer questions NEUROLOGICAL: weakness in the arms. INVESTIGATIONS, reviewed in the clinical context: Accu-Cheks 62 this morning Previous testing White count 7.8 hemoglobin 14.7 potassium 4 creatinine 0.67 sodium 129 Accu-Cheks 405, 254, 151 Computed tomography scan of the spine showing dislocation of anterior cervical fusionand C7 increased kyphosis at C6-C7; fracture of the left C6 lamina Assessment: -Acute metabolic encephalopathy from medications. Patient getting Dilaudid, Valium, baclofen. Patient other lethargic. Insisting on more pain medications. Barely able to keep himself awake. Barely eating. Becoming hypoglycemic.- improved after stopping Valium and baclofen. Dilaudid also be cutback. - October 10-C6 C7 T1 removal of bone fragments from fracture of C7, decompression fusion and plating-4 C7 fracture, cervical spine stenosis , myelopathy disc herniation: Now presented with trauma with Computed tomography scan of the spine showing dislocation of anterior cervical fusionand C7 increased kyphosis at C6-C7; fracture of the left C6 lamina-status post replacement and repair. -C7 epidural abscess that was cleared out. Cultures positive for Staphylococcus epidermidis. -Diabetes mellitus type 2 chronically insulin pump, uncontrolled with hyperglycemia, hypoglycemia -GERD -Essential hypertension -Obstructive sleep apnea uses a BiPAP machine -Bipolar disorder -Chronic low back pain -Obesity BMI 31.7 -Chronic nicotine dependence patient cigarette smoker -COPD in a current smoker -chronic pancreatitis. -Bilateral upper extremity weakness . Plan: We'll start the Dilaudid. Interfering with therapy. Continue with Percocet. Patient also Neurontin. And also Flexeril for muscle spasm. Will cut back Levemir to 66 units in the evening. Thank you Dr. Shanks
[2019-11-06] MEDS: ALBUTEROL NEBULIZED 2.5 MG/3 ML INHALATION PRN (21:52)
[2019-11-06 22:14] LABS: Hemoglobin A1C 11.7 % (4.0-6.0)
[2019-11-07 02:16] LABS: Glucose,Whole Blood 176 mg/dL (75-99)
[2019-11-07] MEDS: oxyCODONE-APAP 10-325MG 1 EACH TAB PO PRN ×4 (04:00→23:26)
[2019-11-07] MEDS: VANCOMYCIN 1,500 MG in SODIUM CHLORIDE 0.9% 250 ML IVPB SCH ×2 (06:18→22:11)
[2019-11-07 06:40] LABS: Glucose,Whole Blood 57 mg/dL (75-99)
[2019-11-07 06:40] LABS: Glucose,Whole Blood 45 mg/dL (75-99)
[2019-11-07 07:00] LABS: Glucose,Whole Blood 80 mg/dL (75-99)
[2019-11-07] MEDS: INSULIN ASPART (NovoLOG) 100 UNIT/ML VIAL SQ SCH ×4 (07:00→21:32)
[2019-11-07] MEDS: ERGOCALCIFEROL 50,000 UNIT CAP PO SCH (08:17)
[2019-11-07] MEDS: QUEtiapine 200 MG TAB PO SCH ×3 (08:17→22:30)
[2019-11-07] MEDS: DULoxetine HCL 30 MG CAPSULE.DR PO SCH ×2 (08:17→21:33)
[2019-11-07] MEDS: FAMOTIDINE 20 MG TAB PO SCH (08:17)
[2019-11-07] MEDS: amLODIPine 5 MG TAB PO SCH (08:18)
[2019-11-07] MEDS: NAPROXEN 250 MG TAB PO SCH ×3 (08:18→22:11)
[2019-11-07] MEDS: SENNOSIDES-DOCUSATE SODIUM 1 EACH TAB PO SCH (08:18)
[2019-11-07] MEDS: MULTIVITAMINS, THERA 1 EACH TAB PO SCH (08:18)
[2019-11-07] MEDS: lamoTRIgine 100 MG TAB PO SCH ×2 (08:18→21:32)
[2019-11-07] MEDS: METOPROLOL TARTRATE 25 MG TAB PO SCH ×2 (08:18→21:32)
[2019-11-07] MEDS: GABAPENTIN 300 MG CAP PO SCH ×2 (08:18→21:32)
[2019-11-07] MEDS: CYCLOBENZAPRINE 5 MG TAB PO SCH ×3 (08:18→21:32)
[2019-11-07] MEDS: FENOFIBRATE 160 MG TAB PO SCH (08:18)
[2019-11-07 11:38] LABS: Glucose,Whole Blood 156 mg/dL (75-99)
--- NOTE | 2019-11-07 13:06 | P.PN ---
Progress Note - Text Progress Note Date: 11/07/19 Orthopedic spine: History of present illness: Patient is a pleasant 54-year-old male seen at the bedside for follow-up evaluation in regards to his cervical spine. He is status post revision anterior cervical decompression and fusion of C6-T1 extending up to C5 with revision corpectomy of C7 with strut cage extending from C6-T1 and posterior cervical fusion C5-T2 performed on 10/31/2019. He currently has a hard cervical collar intact. He continues to be much more awake, alert, and oriented. He is able to answer questions appropriately. He is currently ambulating in the room. He does sit at the bedside for physical examination. He has been able to ambulate to the restroom. He is voiding without difficulty. Today he is complaining of his pain not being an medically controlled. His IV narcotics have been discontinued. Pain is currently being controlled with Percocet 10 mg/325 mg 1-2 tabs every 4 hours as needed for pain. Patient feels his pain is not adequately controlled but does admit he wants to be able to discontinue narcotic medications. Patient has now been approved for rehab to inpatient rehabilitation at [facility] by Dr. Ulrich. They're planning for discharge this coming 11/10/2019. He continues to have a PICC line in place. Epidural abscess cultures were finalize for Staphylococcus epidermidis. Patient continues to be on vancomycin as controlled by infectious disease. Patient continues to be seen by medicine for his other medical diagnoses including diabetes type 2 mellitus with insulin pump and uncontrolled hyperglycemia, essential hypertension, chronic low back pain, obesity, chronic nicotine dependence and COPD. medicine has been managing his medications. Patient also has a recent admission for right scapular pain and shoulder pain with evidence of a deformity of the right and per scapula. He was been treated as well for right lower extremity leg pain with some abdominal sclerosis of the right proximal tibia. He's not currently complaining of any lower extremity leg pain. He does not currently have a hinged knee brace intact. He is not currently complaining of pain at his right scapula. Physical Exam Cervical Fusion: Status post surgical day number 7 Patient is currently sitting upright at the bedside Patient is awake, alert, and oriented 3; he is answering questions appropriately Vital signs stable Good chest excursion with deep inspiration and expiration Dressing over the anterior and posterior surgical sites are clean, dry, and intact; no active drainage from the surgical sites Dressings at the surgical sites are moving physical examination Surgical sites are clean, dry, intact Anterior cervical incision site is dry with glue intact Posterior cervical incision site is dry with candace intact Hard cervical collar is removed during physical examination for dressing change and reapplied Adequate but reduced range of motion of the cervical spine with adequate flexion, extension, and bilateral rotation Inspector Outside Production strength, 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, interosseous strength, biceps strength, triceps strength, and shoulder strength positive sustained bilaterally Patient does have some chronic weakness and evidence of atrophy at the left upper extremity but has had significant improvement of active range of motion of the left upper extremity postoperatively Pertinent studies: Cervical epidural abscess culture: Staphylococcus epidermidis Assessment: Status post anterior cervical decompression and fusion of C6-T1 extending up to C5 with revision corpectomy of C7 with structural cage extending from C6-T1 and posterior cervical fusion C5-T2 performed on 10/31/2019 Cervical pain Left upper extremity radiculopathy Bilateral upper extremity weakness greater on the left than the right Recent C7 burst fracture Recent anterior cervical decompression fusion C6-T1 with corpectomy of C5 Status post fall Epidural abscess culture positive for coagulase-negative staph Diabetes type 2 mellitus with insulin pump uncontrolled hyperglycemia Essential hypertension Chronic low back pain Obesity Chronic nicotine dependence COPD Plan: 1. Patient to keep his hard cervical collar intact at all times 2. Ambulate as tolerated; work with Physical Therapy to increase mobilization 3. Continue medications for pain control as controlled by medicine; patient is currently receiving Percocet 10 mg/325 mg 1-2 tabs every 4 hours as needed for pain 4. Patient may shower with Tegaderm dressing and hard cervical collar intact 5. Patient will continue be seen and examined by Dr. Burton in infectious disease who will manage his antibiotic medications; patient currently on vancomycin. PICC line has been placed. 6. Medical management can continue to manage patient for patient's other medical diagnoses including uncontrolled diabetes and pain control 7. We will continue to follow the patient closely. Patient has had significant difficulty with mobility and care in the outpatient setting while at home. He has been examined by Dr. Ulrich and [facility] patient is now been approved for discharge to inpatient rehabilitation this coming 11/10/2019 8. Patient can follow-up with Rg Crisostomo PA-C or Dr. Jose Manuel Barger at [facility] in 1-2 weeks following discharge
--- NOTE | 2019-11-07 15:49 | PN ---
PROGRESS NOTE DATE OF SERVICE: 11/07/2019 REASON FOR FOLLOWUP: C7 epidural abscess. INTERVAL HISTORY: Patient is currently afebrile, has been breathing comfortably. Pain to the leg is currently controlled. No chest pain. No cough. No abdominal pain, no diarrhea. PHYSICAL EXAMINATION: Blood pressure 120/76, pulse of 89, temperature is 97.8. He is 92% on 3 L nasal cannula. General description is a middle-aged male lying in bed in no distress. Respiratory system: Unlabored breathing, clear to auscultation anteriorly. Heart S1, S2. Regular rate and rhythm. Abdomen soft, no tenderness. LABS: No new labs have been obtained today. Blood culture has been negative. DIAGNOSTIC IMPRESSION AND PLAN: Patient with right C7 epidural abscess status post drainage. Culture has been Staph epidermidis. The patient at this time to continue vancomycin. Waiting for placement. Continue supportive care. MMODL / IJN: [id number] /
[2019-11-07 16:24] LABS: Glucose,Whole Blood 40 mg/dL (75-99)
[2019-11-07 16:24] LABS: Glucose,Whole Blood 41 mg/dL (75-99)
[2019-11-07 16:40] LABS: Glucose,Whole Blood 95 mg/dL (75-99)
[2019-11-07] MEDS: TAMSULOSIN 0.4 MG CAP.ER.24H PO SCH (17:02)
--- NOTE | 2019-11-07 20:18 | P.PN ---
Progress Note - Text Progress Note Date: 11/07/19 History of presenting complaint: This is a 54-year-old patient who follows with Dr. thomas from [place]. Chronic stable medical conditions include diabetes mellitus type II on insulin pump.,GERD, hypertension, obstructive sleep apnea uses CPAP, chronic pancreatitis, bipolar disorder and chronic low back pain. 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 underwent cervical spine surgery by Dr. Chaudharion October 09. Has also had recently nondisplaced proximal tibia fracture being managed with a knee brace. Recently felt to have some light conditions of the bone. DrKranthi by oncology including a bone scan, skeletal survey, negative protein electrophoresis. No further workup per oncology. Also last admission seen by psychiatry recommended to cut back on narcotics. This occasion he had fallen backwards at home.found to have displacement of the internal fixation and graft at C6 to T1. Patient underwent surgery in October 30. With removal of hardware and revision fixation At multiple levels. Local abscess was cleaned out. Cultures growing Staphylococcus epidermidis. Has a cervical collar and a drain in place.Valium was discontinued by me for patient being lethargic. . Added Flexeril.patient ordered finger foods. Both arms are weak. I did stop the Dilaudid eventually because of drowsiness Today-. I stopped Dilaudid yesterday because of drowsiness.. Patient tired today. Accu-Chek did drop. Oral intake variable Review of systems: Was done for constitutional, cardiovascular, GI, pulmonary. Muscular skeletal relevant finding as above Active Medications Acetaminophen (Tylenol Tab) 650 mg PO Q6HR PRN PRN Reason: Mild Pain or Fever > 100.5 Last Admin: 10/31/19 00:46 Dose: 650 mg Documented by: Albuterol Sulfate (Ventolin Nebulized) 2.5 mg INHALATION RT-Q4H PRN PRN Reason: Shortness Of Breath Last Admin: 11/06/19 21:52 Dose: 2.5 mg Documented by: Amlodipine Besylate (Norvasc) 5 mg PO DAILY [facility] Last Admin: 11/07/19 08:18 Dose: 5 mg Documented by: Benzocaine/Menthol (Cepacol Lozenge) 1 each MUCOUS MEM Q4HR PRN PRN Reason: Sore Throat Bisacodyl (Dulcolax) 10 mg RECTAL DAILY PRN PRN Reason: Constipation Cyclobenzaprine HCl (Flexeril) 5 mg PO TID [facility]PLAC[facility] Last Admin: 11/07/19 17:02 Dose: 5 mg Documented by: Dicyclomine HCl (Bentyl) 20 mg PO Q6H PRN PRN Reason: CRAMPS Duloxetine HCl (Cymbalta) 30 mg PO BID [facility] Last Admin: 11/07/19 08:17 Dose: 30 mg Documented by: Ergocalciferol (Vitamin D2) 50,000 unit PO Sa@0900 [facility]PL[facility] Last Admin: 11/07/19 08:17 Dose: 50,000 unit Documented by: Famotidine (Pepcid) 40 mg PO DAILY [facility] Last Admin: 11/07/19 08:17 Dose: 40 mg Documented by: Fenofibrate (Lofibra) 160 mg PO DAILY [facility] Last Admin: 11/07/19 08:18 Dose: 160 mg Documented by: Gabapentin (Neurontin) 300 mg PO BID [facility] Last Admin: 11/07/19 08:18 Dose: 300 mg Documented by: Sodium Chloride (Saline 0.9%) 1,000 mls @ 75 mls/hr IV .[id number] REPLACED [facility] Last Admin: 11/06/19 20:28 Dose: 75 mls/hr Documented by: Vancomycin HCl 1,500 mg/ (Sodium Chloride) 250 mls @ 125 mls/hr IVPB Q16H [facility]PL[facility] Last Admin: 11/07/19 06:18 Dose: 125 mls/hr Documented by: Insulin Aspart (Novolog) 0 unit SQ [facility]; Protocol Last Admin: 11/07/19 16:19 Dose: Not Given Documented by: Insulin Detemir (Levemir) 62 unit SQ [facility] Lamotrigine (Lamictal) 200 mg PO BID [facility] Last Admin: 11/07/19 08:18 Dose: 200 mg Documented by: Magnesium Hydroxide (Milk Of Magnesia) 2,400 mg PO DAILY PRN PRN Reason: Constipation Metoprolol Tartrate (Lopressor) 25 mg PO BID [facility] Last Admin: 11/07/19 08:18 Dose: 25 mg Documented by: Montelukast Sodium (Singulair) 10 mg PO [facility] Last Admin: 11/06/19 20:18 Dose: 10 mg Documented by: Multivitamins (Theragran) 1 each PO DAILY [facility] Last Admin: 11/07/19 08:18 Dose: 1 each Documented by: Naloxone HCl (Narcan) 0.2 mg IV Q2M PRN PRN Reason: Opioid Reversal Naproxen (Naprosyn) 250 mg PO TID [facility] Last Admin: 11/07/19 17:02 Dose: 250 mg Documented by: Ondansetron HCl (Zofran) 4 mg IVP Q8HR PRN PRN Reason: Nausea And Vomiting Last Admin: 10/30/19 22:14 Dose: 4 mg Documented by: Oxycodone/Acetaminophen (Percocet 10-325) 1 - 2 each PO Q4H PRN PRN Reason: Pain Last Admin: 11/07/19 17:02 Dose: 2 each Documented by: Pravastatin Sodium (Pravachol) 40 mg PO [facility] Last Admin: 11/06/19 20:18 Dose: 40 mg Documented by: Quetiapine Fumarate (Seroquel) 300 mg PO [facility] Last Admin: 11/06/19 20:18 Dose: 300 mg Documented by: Senna/Docusate Sodium (Senokot-S) 4 each PO DAILY [facility]PLAC[facility] Last Admin: 11/07/19 08:18 Dose: 4 each Documented by: Tamsulosin HCl (Flomax) 0.4 mg PO PC-SUPPER REPLACED BY [facility] Last Admin: 11/07/19 17:02 Dose: 0.4 mg Documented by: Trazodone HCl (Desyrel) 100 mg PO [facility] Last Admin: 11/06/19 20:17 Dose: 100 mg Documented by: Physical examination: VITAL SIGNS: 97.8, 89, 16, 120 with 76, 92% on 3 L GENERAL: Laying in bed, lethargic, easily dozes off EYES: Pupils equal. Conjunctiva normal. HEENT: External appearance of nose and ears normal, oral cavity grossly normal. NECK: Cervical collar in place-as drain in place. HEART: First and second heart sounds are normal; no edema. LUNGS: Respiratory rate increased, diminished breath sounds ABDOMEN: Soft, non-tenderness,, no guarding rigidity, liver spleen not palpable, no masses palpable. PSYCH: Lethargic, arousable but easily dozes off NEUROLOGICAL: weakness in the arms. INVESTIGATIONS, reviewed in the clinical context: Accu-Cheks 57, 80, 156, 40 Previous testing White count 7.8 hemoglobin 14.7 potassium 4 creatinine 0.67 sodium 129 Accu-Cheks 405, 254, 151 Computed tomography scan of the spine showing dislocation of anterior cervical fusionand C7 increased kyphosis at C6-C7; fracture of the left C6 lamina Assessment: -Acute metabolic encephalopathy from medications. Patient getting Dilaudid, Valium, baclofen. Patient other lethargic. Insisting on more pain medications. Barely able to keep himself awake. Barely eating. Becoming hypoglycemic.- improved after stopping Valium and baclofen. Dilaudid also be cutback. - October 10-C6 C7 T1 removal of bone fragments from fracture of C7, decompression fusion and plating-4 C7 fracture, cervical spine stenosis , myelopathy disc herniation: Now presented with trauma with Computed tomography scan of the spine showing dislocation of anterior cervical fusionand C7 increased kyphosis at C6-C7; fracture of the left C6 lamina-status post replacement and repair. -C7 epidural abscess that was cleared out. Cultures positive for Staphylococcus epidermidis. -Diabetes mellitus type 2 chronically insulin pump, uncontrolled with h yperglycemia, hypoglycemia -GERD -Essential hypertension -Obstructive sleep apnea uses a BiPAP machine -Bipolar disorder -Chronic low back pain -Obesity BMI 31.7 -Chronic nicotine dependence patient cigarette smoker -COPD in a current smoker -chronic pancreatitis. -Bilateral upper extremity weakness . Plan: Dilaudid was stopped yesterday by me. We'll stop the Seroquel 100 mg twice a day in the daytime. Still getting 300 mg at night. As patient is significantly lethargic. Also cut back on Levemir further. Follow closely. Repeat labs in the morning. Thank you Dr. Shanks
[2019-11-07] MEDS ORDERED: INSULIN DETEMIR (LEVEMIR) 100 UNIT/ML SYR SQ SCH (21:00)
[2019-11-07 21:10] LABS: Glucose,Whole Blood 236 mg/dL (75-99)
[2019-11-07] MEDS ORDERED: QUEtiapine 100 MG TAB PO SCH ×2 (21:17→22:30)
[2019-11-07] MEDS: INSULIN DETEMIR (LEVEMIR) 100 UNIT/ML SYR SQ SCH (21:31)
[2019-11-07] MEDS: traZODone HCL 100 MG TAB PO SCH (21:32)
[2019-11-07] MEDS: MONTELUKAST 10 MG TAB PO SCH (21:32)
[2019-11-07] MEDS: PRAVASTATIN SODIUM 40 MG TAB PO SCH (21:32)
[2019-11-08 02:54] LABS: Glucose,Whole Blood 170 mg/dL (75-99)
[2019-11-08] MEDS: SODIUM CHLORIDE 0.9% 1,000 ML IV SCH ×4 (03:37→22:34)
[2019-11-08] MEDS: QUEtiapine 200 MG TAB PO SCH ×2 (05:37→20:55)
[2019-11-08] MEDS: oxyCODONE-APAP 10-325MG 1 EACH TAB PO PRN ×4 (06:15→20:55)
[2019-11-08 07:14] LABS: Glucose,Whole Blood 232 mg/dL (75-99)
[2019-11-08] MEDS: FAMOTIDINE 20 MG TAB PO SCH (07:37)
[2019-11-08] MEDS: SENNOSIDES-DOCUSATE SODIUM 1 EACH TAB PO SCH (07:37)
[2019-11-08] MEDS: METOPROLOL TARTRATE 25 MG TAB PO SCH ×2 (07:38→20:55)
[2019-11-08] MEDS: GABAPENTIN 300 MG CAP PO SCH ×2 (07:38→20:55)
[2019-11-08] MEDS: lamoTRIgine 100 MG TAB PO SCH ×2 (07:38→20:55)
[2019-11-08] MEDS: MULTIVITAMINS, THERA 1 EACH TAB PO SCH (07:38)
[2019-11-08] MEDS: amLODIPine 5 MG TAB PO SCH (07:38)
[2019-11-08] MEDS: CYCLOBENZAPRINE 5 MG TAB PO SCH ×3 (07:38→20:55)
[2019-11-08] MEDS: ALBUTEROL NEBULIZED 2.5 MG/3 ML INHALATION PRN (07:38)
[2019-11-08] MEDS: FENOFIBRATE 160 MG TAB PO SCH (07:38)
[2019-11-08] MEDS: NAPROXEN 250 MG TAB PO SCH ×3 (07:39→20:55)
[2019-11-08] MEDS: DULoxetine HCL 30 MG CAPSULE.DR PO SCH ×2 (07:39→20:55)
[2019-11-08] MEDS: INSULIN ASPART (NovoLOG) 100 UNIT/ML VIAL SQ SCH ×4 (07:39→20:56)
[2019-11-08 08:34] LABS: HCT 30.6 % (39.0-53.0); HGB 9.9 gm/dL (13.0-17.5); Hypochromasia Slight; MCH 29.2 pg (25.0-35.0); MCHC 32.2 g/dL (31.0-37.0); MCV 90.6 fL (80.0-100.0); Mean Platelet Volume 7.6; Platelet Count 251 k/uL (150-450); RBC 3.38 m/uL (4.30-5.90); RDW 12.5 % (11.5-15.5); WBC 9.1 k/uL (3.8-10.6)
[2019-11-08 08:51] LABS: ALT 23 U/L (4-49); AST 42 U/L (17-59); African American GFR (CKD) >90 (>60 ml/min/1.73 sqM); Albumin 2.5 g/dL (3.5-5.0); Alkaline Phosphatase 195 U/L (38-126); Anion Gap 5 mmol/L; Blood Urea Nitrogen 12 mg/dL (9-20); Calcium 8.8 mg/dL (8.4-10.2); Carbon Dioxide 37 mmol/L (22-30); Chloride 95 mmol/L (98-107); Glucose 173 mg/dL (74-99); Non-African American GFR(CKD) 80 (>60 ml/min/1.73 sqM); Potassium 4.1 mmol/L (3.5-5.1); Sodium 137 mmol/L (137-145); Total Bilirubin 0.5 mg/dL (0.2-1.3); Total Protein 5.2 g/dL (6.3-8.2)
--- NOTE | 2019-11-08 10:22 | P.PN ---
Progress Note - Text Progress Note Date: 11/08/19 Orthopedic spine: History of present illness: Patient is a pleasant 54-year-old male seen at the bedside for follow-up evaluation in regards to his cervical spine. He is status post revision anterior cervical decompression and fusion of C6-T1 extending up to C5 with revision corpectomy of C7 with strut cage extending from C6-T1 and posterior cervical fusion C5-T2 performed on 10/31/2019. He currently has a hard cervical collar intact. He continues to be much more awake, alert, and oriented. He is able to answer questions appropriately. He is currently ambulating in the room. He does sit in a bedside chair for physical examination. He has been able to ambulate to the restroom. He is voiding without difficulty. He continues to complain his pain not being an medically controlled. His IV narcotics have been discontinued. Pain is currently being controlled with Percocet 10 mg/325 mg 1-2 tabs every 4 hours as needed for pain. Patient feels his pain is not adequately controlled but does admit he wants to be able to discontinue narcotic medications. We did discuss he is taking a high dose of narcotic pain medication and we do not plan to increase this amount. Patient has now been approved for rehab to inpatient rehabilitation at [facility] by Dr. Ulrich. They're planning for discharge this coming 11/10/2019. He continues to have a PICC line in place. Epidural abscess cultures were finalize for Staphylococcus epidermidis. Patient continues to be on vancomycin as controlled by infectious disease. Patient continues to be seen by medicine for his other medical diagnoses including diabetes type 2 mellitus with insulin pump and uncontrolled hyperglycemia, essential hypertension, chronic low back pain, obesity, chronic nicotine dependence and COPD. medicine has been managing his medications. Patient also has a recent admission for right scapular pain and shoulder pain with evidence of a deformity of the right and per scapula. He was been treated as well for right lower extremity leg pain with some abdominal sclerosis of the right proximal tibia. He's not currently complaining of any lower extremity leg pain. He does not currently have a hinged knee brace intact. Today he states he has had some pain at his right scapula. Physical Exam Cervical Fusion: Status post surgical day number 8 Patient is currently sitting upright at the bedside Patient is awake, alert, and oriented 3; he is answering questions appropriately Vital signs stable Good chest excursion with deep inspiration and expiration Anterior cervical incision site is clean, dry, and intact with glue intact Posterior cervical incision site is clean, dry, and intact with Tegaderm dressing intact Hard cervical collar remains intact Adequate but reduced range of motion of the cervical spine with adequate flexion, extension, and bilateral rotation [employer]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, 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, interosseous strength, biceps strength, triceps strength, and shoulder strength positive sustained bilaterally Patient does have some chronic weakness and evidence of atrophy at the left upper extremity but has had significant improvement of active range of motion of the left upper extremity postoperatively Pertinent studies: Cervical epidural abscess culture: Staphylococcus epidermidis Assessment: Status post anterior cervical decompression and fusion of C6-T1 extending up to C5 with revision corpectomy of C7 with structural cage extending from C6-T1 and posterior cervical fusion C5-T2 performed on 10/31/2019 Cervical pain Left upper extremity radiculopathy Bilateral upper extremity weakness greater on the left than the right Recent C7 burst fracture Recent anterior cervical decompression fusion C6-T1 with corpectomy of C5 Status post fall Epidural abscess culture positive for coagulase-negative staph Diabetes type 2 mellitus with insulin pump uncontrolled hyperglycemia Essential hypertension Chronic low back pain Obesity Chronic nicotine dependence COPD Plan: We will continue with our plan as previously set forth 1. Patient to keep his hard cervical collar intact at all times 2. Ambulate as tolerated; work with Physical Therapy to increase mobilization 3. Continue medications for pain control as controlled by medicine; patient is currently receiving Percocet 10 mg/325 mg 1-2 tabs every 4 hours as needed for pain 4. Patient may shower with Tegaderm dressing and hard cervical collar intact 5. Patient will continue be seen and examined by Dr. Burton in infectious disease who will manage his antibiotic medications; patient currently on vancomycin. PICC line has been placed. 6. Medical management can continue to manage patient for patient's other medical diagnoses including uncontrolled diabetes and pain control 7. We will continue to follow the patient closely. Patient has had significant difficulty with mobility and care in the outpatient setting while at home. He has been examined by Dr. Ulrich and [facility] patient is now been approved for discharge to inpatient rehabilitation this coming 11/10/2019 8. Patient can follow-up with Rg Crisostomo PA-C or Dr. Jose Manuel Barger at [facility] in 1-2 weeks following discharge
[2019-11-08 11:52] LABS: Glucose,Whole Blood 164 mg/dL (75-99)
[2019-11-08] MEDS ORDERED: VANCOMYCIN TROUGH DUE 1 EACH MISC MISCELLANE ONE (13:00)
[2019-11-08] MEDS: VANCOMYCIN 1,500 MG in SODIUM CHLORIDE 0.9% 250 ML IVPB SCH (15:01)
[2019-11-08 17:02] LABS: Glucose,Whole Blood 325 mg/dL (75-99)
[2019-11-08] MEDS: TAMSULOSIN 0.4 MG CAP.ER.24H PO SCH (17:34)
[2019-11-08 20:24] LABS: Glucose,Whole Blood 203 mg/dL (75-99)
[2019-11-08] MEDS: PRAVASTATIN SODIUM 40 MG TAB PO SCH (20:55)
[2019-11-08] MEDS: MONTELUKAST 10 MG TAB PO SCH (20:55)
[2019-11-08] MEDS: traZODone HCL 100 MG TAB PO SCH (20:55)
[2019-11-08] MEDS: INSULIN DETEMIR (LEVEMIR) 100 UNIT/ML SYR SQ SCH (20:56)
--- NOTE | 2019-11-08 21:49 | PN ---
PROGRESS NOTE DATE OF SERVICE: 11/08/2019 REASON FOR FOLLOW UP: C7 epidural abscess. INTERVAL HISTORY: Patient is currently afebrile. Pain is currently controlled. No chest pain or cough. No nausea, no vomiting. No abdominal pain or diarrhea. PHYSICAL EXAMINATION: Blood pressure 149/91 with a pulse of 103, temperature 98.1. He is 93% on 3 L nasal cannula. General description is a middle-aged male lying in bed in no distress. Respiratory system: Unlabored breathing, decreased breath sounds in the base, with no wheeze. Heart S1, S2. Regular rate and rhythm. Abdomen soft, no tenderness. LABS: Hemoglobin 9.9, white count 9.1 with BUN of 12, creatinine 1.06. Blood culture negative. DIAGNOSTIC IMPRESSION AND PLAN: Patient with C7 epidural abscess status post surgical drainage of the abscess and removal of the hardware. Culture with Staph epidermidis. Blood culture has been negative. Patient is covered with vancomycin to continue to finish a 6 week course of therapy and close outpatient followup. MMODL / IJN: [id number] /
--- NOTE | 2019-11-08 21:51 | P.PN ---
Progress Note - Text Progress Note Date: 11/08/19 History of presenting complaint: This is a 54-year-old patient who follows with Dr. thomas from [place]. Chronic stable medical conditions include diabetes mellitus type II on insulin pump.,GERD, hypertension, obstructive sleep apnea uses CPAP, chronic pancreatitis, bipolar disorder and chronic low back pain. 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 underwent cervical spine surgery by Dr. Shakns-on October 09. Has also had recently nondisplaced proximal tibia fracture being managed with a knee brace. Recently felt to have some light conditions of the bone. DrKranthi by oncology including a bone scan, skeletal survey, negative protein electrophoresis. No further workup per oncology. Also last admission seen by psychiatry recommended to cut back on narcotics. This occasion he had fallen backwards at home.found to have displacement of the internal fixation and graft at C6 to T1. Patient underwent surgery in October 30. With removal of hardware and revision fixation At multiple levels. Local abscess was cleaned out. Cultures growing Staphylococcus epidermidis. Has a cervical collar and a drain in place.Valium was discontinued by me for patient being lethargic. . Added Flexeril.patient ordered finger foods. Both arms are weak. I did stop the Dilaudid eventually because of drowsiness. daytime dose of Seroquel was also discontinued. Today-. patient showed remarkable improvement this morning. Sitting with edge of bed. Awake, talking.arm STRENGTH is much improved. Eating better. Review of systems: Was done for constitutional, cardiovascular, GI, pulmonary. Muscular skeletal relevant finding as above Active Medications Acetaminophen (Tylenol Tab) 650 mg PO Q6HR PRN PRN Reason: Mild Pain or Fever > 100.5 Last Admin: 10/31/19 00:46 Dose: 650 mg Documented by: Albuterol Sulfate (Ventolin Nebulized) 2.5 mg INHALATION RT-Q4H PRN PRN Reason: Shortness Of Breath Last Admin: 11/08/19 07:38 Dose: 2.5 mg Documented by: Amlodipine Besylate (Norvasc) 5 mg PO DAILY ASHLEY Last Admin: 11/08/19 07:38 Dose: 5 mg Documented by: Benzocaine/Menthol (Cepacol Lozenge) 1 each MUCOUS MEM Q4HR PRN PRN Reason: Sore Throat Bisacodyl (Dulcolax) 10 mg RECTAL DAILY PRN PRN Reason: Constipation Cyclobenzaprine HCl (Flexeril) 5 mg PO TID [facility] Last Admin: 11/08/19 20:55 Dose: 5 mg Documented by: Dicyclomine HCl (Bentyl) 20 mg PO Q6H PRN PRN Reason: CRAMPS Duloxetine HCl (Cymbalta) 30 mg PO BID [facility] Last Admin: 11/08/19 20:55 Dose: 30 mg Documented by: Ergocalciferol (Vitamin D2) 50,000 unit PO Sa@0900 [facility] Last Admin: 11/07/19 08:17 Dose: 50,000 unit Documented by: Famotidine (Pepcid) 40 mg PO DAILY [facility] Last Admin: 11/08/19 07:37 Dose: 40 mg Documented by: Fenofibrate (Lofibra) 160 mg PO DAILY [facility] Last Admin: 11/08/19 07:38 Dose: 160 mg Documented by: Gabapentin (Neurontin) 300 mg PO BID [facility] Last Admin: 11/08/19 20:55 Dose: 300 mg Documented by: Sodium Chloride (Saline 0.9%) 1,000 mls @ 75 mls/hr IV .[id number] [facility] Last Admin: 11/08/19 15:01 Dose: 75 mls/hr Documented by: Vancomycin HCl 1,500 mg/ (Sodium Chloride) 250 mls @ 125 mls/hr IVPB Q16H [facility] Last Admin: 11/08/19 15:01 Dose: 125 mls/hr Documented by: Insulin Aspart (Novolog) 0 unit SQ [facility]; Protocol Last Admin: 11/08/19 20:56 Dose: 2 unit Documented by: Insulin Detemir (Levemir) 62 unit SQ [facility] Last Admin: 11/08/19 20:56 Dose: 62 unit Documented by: Lamotrigine (Lamictal) 200 mg PO BID [facility] Last Admin: 11/08/19 20:55 Dose: 200 mg Documented by: Magnesium Hydroxide (Milk Of Magnesia) 2,400 mg PO DAILY PRN PRN Reason: Constipation Metoprolol Tartrate (Lopressor) 25 mg PO BID [facility] Last Admin: 11/08/19 20:55 Dose: 25 mg Documented by: Montelukast Sodium (Singulair) 10 mg PO [facility] Last Admin: 11/08/19 20:55 Dose: 10 mg Documented by: Multivitamins (Theragran) 1 each PO DAILY [facility] Last Admin: 11/08/19 07:38 Dose: 1 each Documented by: Naloxone HCl (Narcan) 0.2 mg IV Q2M PRN PRN Reason: Opioid Reversal Naproxen (Naprosyn) 250 mg PO TID [facility] Last Admin: 11/08/19 20:55 Dose: 250 mg Documented by: Ondansetron HCl (Zofran) 4 mg IVP Q8HR PRN PRN Reason: Nausea And Vomiting Last Admin: 10/30/19 22:14 Dose: 4 mg Documented by: Oxycodone/Acetaminophen (Percocet 10-325) 1 - 2 each PO Q4H PRN PRN Reason: Pain Last Admin: 11/08/19 20:55 Dose: 2 each Documented by: Pravastatin Sodium (Pravachol) 40 mg PO [facility] Last Admin: 11/08/19 20:55 Dose: 40 mg Documented by: Quetiapine Fumarate (Seroquel) 200 mg PO [facility] Last Admin: 11/08/19 20:55 Dose: 200 mg Documented by: Senna/Docusate Sodium (Senokot-S) 4 each PO DAILY [facility] Last Admin: 11/08/19 07:37 Dose: 4 each Documented by: Tamsulosin HCl (Flomax) 0.4 mg PO PC-SUPPER [facility] Last Admin: 11/08/19 17:34 Dose: 0.4 mg Documented by: Trazodone HCl (Desyrel) 100 mg PO [facility] Last Admin: 11/08/19 20:55 Dose: 100 mg Documented by: Physical examination: VITAL SIGNS: 8.6, 98, 16, 145/90, 94% room air GENERAL:sitting at the age of bed, awake, communicating EYES: Pupils equal. Conjunctiva normal. HEENT: External appearance of nose and ears normal, oral cavity grossly normal. NECK: Cervical collar in place-as drain in place. HEART: First and second heart sounds are normal; no edema. LUNGS: Respiratory rate increased, diminished breath sounds ABDOMEN: Soft, non-tenderness,, no guarding rigidity, liver spleen not palpable, no masses palpable. PSYCH:awake, answered questions, carrying on a conversation NEUROLOGICAL: bilateral arm weakness improvedto 4/5 INVESTIGATIONS, reviewed in the clinical context: Accu-Cheks 164, 325, 203 Previous testing White count 7.8 hemoglobin 14.7 potassium 4 creatinine 0.67 sodium 129 Accu-Cheks 405, 254, 151 Computed tomography scan of the spine showing dislocation of anterior cervical fusionand C7 increased kyphosis at C6-C7; fracture of the left C6 lamina Assessment: -Acute metabolic encephalopathy from medications. Patient getting Dilaudid, Valium, baclofen. Patient other lethargic. Insisting on more pain medications. Barely able to keep himself awake. Barely eating. Becoming hypoglycemic.- improved after stopping Valium and baclofen. Dilaudid also be cutback. - October 10-C6 C7 T1 removal of bone fragments from fracture of C7, decompression fusion and plating-4 C7 fracture, cervical spine stenosis , myelopathy disc herniation: Now presented with trauma with Computed tomography scan of the spine showing dislocation of anterior cervical fusionand C7 increased kyphosis at C6-C7; fracture of the left C6 lamina-status post replacement and repair. -C7 epidural abscess that was cleared out. Cultures positive for Staphylococcus epidermidis. -Diabetes mellitus type 2 chronically insulin pump, uncontrolled with hyperglycemia, hypoglycemia -GERD -Essential hypertension -Obstructive sleep apnea uses a BiPAP machine -Bipolar disorder -Chronic low back pain -Obesity BMI 31.7 -Chronic nicotine dependence patient cigarette smoker -COPD in a current smoker -chronic pancreatitis. -Bilateral upper extremity weakness . Plan: patient improved remarkably well. Discussed with Dr. Shanks from orthopedics. as appetite has improved Accu-Cheks also going up. Increase Lantus. Thank you Dr. Shanks
[2019-11-08] MEDS ORDERED: INSULIN DETEMIR (LEVEMIR) 100 UNIT/ML SYR SQ SCH (22:00)
[2019-11-09] MEDS: oxyCODONE-APAP 10-325MG 1 EACH TAB PO PRN ×5 (01:45→19:44)
[2019-11-09] MEDS: VANCOMYCIN 1,500 MG in SODIUM CHLORIDE 0.9% 250 ML IVPB SCH ×2 (05:05→23:23)
[2019-11-09 07:15] LABS: Glucose,Whole Blood 57 mg/dL (75-99)
[2019-11-09 07:31] LABS: Glucose,Whole Blood 79 mg/dL (75-99)
[2019-11-09 08:08] VITALS: RESP 18
[2019-11-09] MEDS: amLODIPine 5 MG TAB PO SCH (08:24)
[2019-11-09] MEDS: lamoTRIgine 100 MG TAB PO SCH ×2 (08:24→19:36)
[2019-11-09] MEDS: SENNOSIDES-DOCUSATE SODIUM 1 EACH TAB PO SCH (08:24)
[2019-11-09] MEDS: INSULIN ASPART (NovoLOG) 100 UNIT/ML VIAL SQ SCH ×5 (08:24→20:48)
[2019-11-09] MEDS: GABAPENTIN 300 MG CAP PO SCH ×2 (08:25→19:36)
[2019-11-09] MEDS: DULoxetine HCL 30 MG CAPSULE.DR PO SCH ×2 (08:25→19:36)
[2019-11-09] MEDS: MULTIVITAMINS, THERA 1 EACH TAB PO SCH (08:25)
[2019-11-09] MEDS: FAMOTIDINE 20 MG TAB PO SCH (08:25)
[2019-11-09] MEDS: METOPROLOL TARTRATE 25 MG TAB PO SCH ×2 (08:25→19:35)
[2019-11-09] MEDS: FENOFIBRATE 160 MG TAB PO SCH (08:25)
[2019-11-09] MEDS: CYCLOBENZAPRINE 5 MG TAB PO SCH ×3 (08:25→19:36)
[2019-11-09] MEDS: NAPROXEN 250 MG TAB PO SCH ×3 (08:26→19:35)
[2019-11-09 11:45] LABS: Glucose,Whole Blood 71 mg/dL (75-99)
--- NOTE | 2019-11-09 12:32 | P.PN ---
Progress Note - Text Progress Note Date: 11/09/19 Orthopedic spine: History of present illness: Patient is a pleasant 54-year-old male seen at the bedside for follow-up evaluation in regards to his cervical spine. He is status post revision anterior cervical decompression and fusion of C6-T1 extending up to C5 with revision corpectomy of C7 with strut cage extending from C6-T1 and posterior cervical fusion C5-T2 performed on 10/31/2019. He currently has a hard cervical collar intact. He continues to be much more awake, alert, and oriented. He is able to answer questions appropriately. He is currently sitting at the bedside without difficulty. He has been able to ambulate to the restroom. He is voiding without difficulty. Today he is not complaining of is much pain as he was previously. His IV narcotics have been discontinued. Pain is currently being controlled with Percocet 10 mg/325 mg 1-2 tabs every 4 hours as needed for pain. Patient has now been approved for rehab to inpatient rehabilitation at [facility] by Dr. Ulrich. They're planning for discharge this coming 11/10/2019. He states he is looking forward to discharge tomorrow and is willing to work with physical therapy while there He continues to have a PICC line in place. Epidural abscess cultures were finalize for Staphylococcus epidermidis. Patient continues to be on vancomycin as controlled by infectious disease. Patient continues to be seen by medicine for his other medical diagnoses including diabetes type 2 mellitus with insulin pump and uncontrolled hyperglycemia, essential hypertension, chronic low back pain, obesity, chronic nicotine dependence and COPD. medicine has been managing his medications. Patient also has a recent admission for right scapular pain and shoulder pain with evidence of a deformity of the right and per scapula. He was been treated as well for right lower extremity leg pain with some abdominal sclerosis of the right proximal tibia. He's not currently complaining of any lower extremity leg pain. He does not currently have a hinged knee brace intact. Today he states he has had some pain at his right scapula. Physical Exam Cervical Fusion: Status post surgical day number 9 Patient is currently sitting upright at the bedside Patient is awake, alert, and oriented 3; he is answering questions appropriately Vital signs stable Good chest excursion with deep inspiration and expiration Anterior cervical incision site is clean, dry, and intact with glue intact Posterior cervical incision site is clean, dry, and intact with Tegaderm dressing intact Hard cervical collar remains intact Adequate but reduced range of motion of the cervical spine with adequate flexion, extension, and bilateral rotation Fur Tailor strength, 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, interosseous strength, biceps strength, triceps strength, and shoulder strength positive sustained bilaterally Patient does have some chronic weakness and evidence of atrophy at the left upper extremity but has had significant improvement of active range of motion of the left upper extremity postoperatively Motor strength of the left upper extremity is 3-/5 including the triceps Motor strength in the left upper extremity is 3/5 including interosseous and thumb extension Motor strength of the right upper extremity is 3/5 including thumb extension Pertinent studies: Cervical epidural abscess culture: Staphylococcus epidermidis Assessment: Status post anterior cervical decompression and fusion of C6-T1 extending up to C5 with revision corpectomy of C7 with structural cage extending from C6-T1 and posterior cervical fusion C5-T2 performed on 10/31/2019 Cervical pain Left upper extremity radiculopathy Bilateral upper extremity weakness greater on the left than the right Recent C7 burst fracture Recent anterior cervical decompression fusion C6-T1 with corpectomy of C5 Status post fall Epidural abscess culture positive for coagulase-negative staph Diabetes type 2 mellitus with insulin pump uncontrolled hyperglycemia Essential hypertension Chronic low back pain Obesity Chronic nicotine dependence COPD Plan: 1. Patient to keep his hard cervical collar intact at all times 2. Ambulate as tolerated; work with Physical Therapy to increase mobilization 3. Continue medications for pain control as controlled by medicine; patient is currently receiving Percocet 10 mg/325 mg 1-2 tabs every 4 hours as needed for pain 4. Patient may shower with Tegaderm dressing and hard cervical collar intact 5. Patient will continue be seen and examined by Dr. Burton in infectious disease who will manage his antibiotic medications; patient currently on vancomycin. PICC line has been placed. 6. Medical management can continue to manage patient for patient's other medical diagnoses including uncontrolled diabetes and pain control 7. We will plan to obtain x-rays of the cervical spine with AP and lateral views for postoperative evaluation prior to his discharge scheduled for tomorrow 8. We will continue to follow the patient closely. Patient has had significant difficulty with mobility and care in the outpatient setting while at home. He has been examined by Dr. Ulrich and [facility] patient is now been approved for discharge to inpatient rehabilitation this coming 11/10/2019 9. Patient can follow-up with Rg Crisostomo PA-C or Dr. Jose Manuel Barger at [facility] in 1-2 weeks following discharge
--- NOTE | 2019-11-09 14:01 | XR ---
EXAMINATION TYPE: XR cervical spine limited DATE OF EXAM: 11/09/2019 COMPARISON: 10/31/2019 HISTORY: 54-year-old male postoperative evaluation TECHNIQUE: 3 views FINDINGS: Residual mild prevertebral soft tissue swelling. No predental space widening. C5-T1 ACDF with posteri or fusion hardware and corpectomy change and metal cage is demonstrated. Posterior midline skin stapl es. Some soft tissue air relating to recent operation. Alignment is seen down to the C7 level. C7-T1 and below is obscured by the patient's shoulders. IMPRESSION: Postsurgical changes of C5-T1 ACDF and posterior fusion. Some posterior soft tissue air relating to r ecent operation. Residual mild prevertebral soft tissue swelling. Alignment is maintained down to the C7 level. C7-T1 and below is obscured by the patient's shoulders.
--- NOTE | 2019-11-09 15:17 | P.PN ---
Progress Note - Text Progress Note Date: 11/09/19 History of presenting complaint: This is a 54-year-old patient who follows with Dr. thomas from [place]. Chronic stable medical conditions include diabetes mellitus type II on insulin pump.,GERD, hypertension, obstructive sleep apnea uses CPAP, chronic pancreatitis, bipolar disorder and chronic low back pain. 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 underwent cervical spine surgery by Dr. Shanks-on October 09. Has also had recently nondisplaced proximal tibia fracture being managed with a knee brace. Recently felt to have some light conditions of the bone. DrKranthi by oncology including a bone scan, skeletal survey, negative protein electrophoresis. No further workup per oncology. Also last admission seen by psychiatry recommended to cut back on narcotics. This occasion he had fallen backwards at home.found to have displacement of the internal fixation and graft at C6 to T1. Patient underwent surgery in October 30. With removal of hardware and revision fixation At multiple levels. Local abscess was cleaned out. Cultures growing Staphylococcus epidermidis. Has a cervical collar and a drain in place.Valium was discontinued by me for patient being lethargic. . Added Flexeril.patient ordered finger foods. Both arms are weak. I did stop the Dilaudid eventually because of drowsiness. daytime dose of Seroquel was also discontinued. Today-. Laying in bed. Feeling better. Oral intake does fluctuate. Review of systems: Was done for constitutional, cardiovascular, GI, pulmonary. Muscular skeletal relevant finding as above Active Medications Acetaminophen (Tylenol Tab) 650 mg PO Q6HR PRN PRN Reason: Mild Pain or Fever > 100.5 Last Admin: 10/31/19 00:46 Dose: 650 mg Documented by: Albuterol Sulfate (Ventolin Nebulized) 2.5 mg INHALATION RT-Q4H PRN PRN Reason: Shortness Of Breath Last Admin: 11/08/19 07:38 Dose: 2.5 mg Documented by: Amlodipine Besylate (Norvasc) 5 mg PO DAILY [facility] Last Admin: 11/09/19 08:24 Dose: 5 mg Documented by: Benzocaine/Menthol (Cepacol Lozenge) 1 each MUCOUS MEM Q4HR PRN PRN Reason: Sore Throat Bisacodyl (Dulcolax) 10 mg RECTAL DAILY PRN PRN Reason: Constipation Cyclobenzaprine HCl (Flexeril) 5 mg PO TID [facility] Last Admin: 11/09/19 14:59 Dose: 5 mg Documented by: Dicyclomine HCl (Bentyl) 20 mg PO Q6H PRN PRN Reason: CRAMPS Duloxetine HCl (Cymbalta) 30 mg PO BID [facility] Last Admin: 11/09/19 08:25 Dose: 30 mg Documented by: Ergocalciferol (Vitamin D2) 50,000 unit PO Sa@0900 [facility] Last Admin: 11/07/19 08:17 Dose: 50,000 unit Documented by: Famotidine (Pepcid) 40 mg PO DAILY [facility] Last Admin: 11/09/19 08:25 Dose: 40 mg Documented by: Fenofibrate (Lofibra) 160 mg PO DAILY [facility] Last Admin: 11/09/19 08:25 Dose: 160 mg Documented by: Gabapentin (Neurontin) 300 mg PO BID [facility] Last Admin: 11/09/19 08:25 Dose: 300 mg Documented by: Sodium Chloride (Saline 0.9%) 1,000 mls @ 75 mls/hr IV .[id number] [facility] Last Admin: 11/08/19 22:34 Dose: 75 mls/hr Documented by: Vancomycin HCl 1,500 mg/ (Sodium Chloride) 250 mls @ 125 mls/hr IVPB Q16H [facility] Last Admin: 11/09/19 05:05 Dose: 125 mls/hr Documented by: Insulin Aspart (Novolog) 0 unit SQ ACHS [facility]; Protocol Last Admin: 11/09/19 12:01 Dose: Not Given Documented by: Insulin Aspart (Novolog) 10 unit SQ AC-TID [facility] Insulin Detemir (Levemir) [address] [facility] Lamotrigine (Lamictal) 200 mg PO BID [facility] Last Admin: 11/09/19 08:24 Dose: 200 mg Documented by: Magnesium Hydroxide (Milk Of Magnesia) 2,400 mg PO DAILY PRN PRN Reason: Constipation Metoprolol Tartrate (Lopressor) 25 mg PO BID [facility] Last Admin: 11/09/19 08:25 Dose: 25 mg Documented by: Montelukast Sodium (Singulair) [address] [facility] Last Admin: 11/08/19 20:55 Dose: 10 mg Documented by: Multivitamins (Theragran) 1 each PO DAILY [facility] Last Admin: 11/09/19 08:25 Dose: 1 each Documented by: Naloxone HCl (Narcan) 0.2 mg IV Q2M PRN PRN Reason: Opioid Reversal Naproxen (Naprosyn) 250 mg PO TID [facility] Last Admin: 11/09/19 14:59 Dose: 250 mg Documented by: Ondansetron HCl (Zofran) 4 mg IVP Q8HR PRN PRN Reason: Nausea And Vomiting Last Admin: 10/30/19 22:14 Dose: 4 mg Documented by: Oxycodone/Acetaminophen (Percocet 10-325) 1 - 2 each PO Q4H PRN PRN Reason: Pain Last Admin: 11/09/19 14:58 Dose: 2 each Documented by: Pravastatin Sodium (Pravachol) [address] [facility] Last Admin: 11/08/19 20:55 Dose: 40 mg Documented by: Quetiapine Fumarate (Seroquel) [address] [facility] Last Admin: 11/08/19 20:55 Dose: 200 mg Documented by: Senna/Docusate Sodium (Senokot-S) 4 each PO DAILY [facility] Last Admin: 11/09/19 08:24 Dose: 4 each Documented by: Tamsulosin HCl (Flomax) 0.4 mg PO PC-SUPPER [facility] Last Admin: 11/08/19 17:34 Dose: 0.4 mg Documented by: Trazodone HCl (Desyrel) [address] [facility] Last Admin: 11/08/19 20:55 Dose: 100 mg Documented by: Physical examination: VITAL SIGNS: 98.3, 87, 18, 132.81, 90% room air GENERAL: Laying in bed, comfortable EYES: Pupils equal. Conjunctiva normal. HEENT: External appearance of nose and ears normal, oral cavity grossly normal. NECK: Cervical collar in place-as drain in place. HEART: First and second heart sounds are normal; no edema. LUNGS: Respiratory rate increased, diminished breath sounds ABDOMEN: Soft, non-tenderness,, no guarding rigidity, liver spleen not palpable, no masses palpable. PSYCH:awake, answered questions, carrying on a conversation NEUROLOGICAL: bilateral arm weakness improved to 4/5 INVESTIGATIONS, reviewed in the clinical context: Accu-Cheks 57, 79, 71 Previous testing White count 7.8 hemoglobin 14.7 potassium 4 creatinine 0.67 sodium 129 Accu-Cheks 405, 254, 151 Computed tomography scan of the spine showing dislocation of anterior cervical fusionand C7 increased kyphosis at C6-C7; fracture of the left C6 lamina Assessment: -Acute metabolic encephalopathy from medications. Patient getting Dilaudid, Valium, baclofen. Patient other lethargic. Insisting on more pain medications. Barely able to keep himself awake. Barely eating. Becoming hypoglycemic.- improved after stopping Valium and baclofen. Dilaudid also be cutback. - October 10-C6 C7 T1 removal of bone fragments from fracture of C7, decompression fusion and plating-4 C7 fracture, cervical spine stenosis , myelopathy disc herniation: Now presented with trauma with Computed tomography scan of the spine showing dislocation of anterior cervical fusionand C7 increased kyphosis at C6-C7; fracture of the left C6 lamina-status post replacement and repair. -C7 epidural abscess that was cleared out. Cultures positive for Staphylococcus epidermidis. -Diabetes mellitus type 2 chronically insulin pump, uncontrolled with hyperglycemia, hypoglycemia -GERD -Essential hypertension -Obstructive sleep apnea uses a BiPAP machine -Bipolar disorder -Chronic low back pain -Obesity BMI 31.7 -Chronic nicotine dependence patient cigarette smoker -COPD in a current smoker -chronic pancreatitis. -Bilateral upper extremity weakness . Plan: We'll decrease the Levemir to 60 units at night. Add Humalog 10 units with meals. Patient's discharge medications have been done except for antibiotics and Humalog dose that can be done tomorrow. Care was discussed with the patient. Questions answered. Hopefully discharge tomorrow. To rehab. Thank you Dr. Shanks
[2019-11-09 16:40] LABS: Glucose,Whole Blood 123 mg/dL (75-99)
[2019-11-09] MEDS: TAMSULOSIN 0.4 MG CAP.ER.24H PO SCH (18:25)
[2019-11-09] MEDS: SODIUM CHLORIDE 0.9% 1,000 ML IV SCH (19:28)
[2019-11-09] MEDS: MONTELUKAST 10 MG TAB PO SCH (19:35)
[2019-11-09] MEDS: PRAVASTATIN SODIUM 40 MG TAB PO SCH (19:36)
[2019-11-09] MEDS: QUEtiapine 200 MG TAB PO SCH (19:36)
[2019-11-09] MEDS: traZODone HCL 100 MG TAB PO SCH (19:37)
[2019-11-09 20:20] LABS: Glucose,Whole Blood 236 mg/dL (75-99)
[2019-11-09] MEDS: INSULIN DETEMIR (LEVEMIR) 100 UNIT/ML SYR SQ SCH (20:47)
[2019-11-09] MEDS ORDERED: INSULIN DETEMIR (LEVEMIR) 100 UNIT/ML SYR SQ SCH (21:00)
[2019-11-10] MEDS: oxyCODONE-APAP 10-325MG 1 EACH TAB PO PRN ×6 (02:12→23:37)
--- NOTE | 2019-11-10 05:51 | PN ---
PROGRESS NOTE DATE OF SERVICE: 11/09/2019 REASON FOR FOLLOWUP: A C7 epidural abscess. INTERVAL HISTORY: The patient is currently afebrile. He is more awake and alert. He is breathing comfortably. Denies having any chest pain. No shortness of breath or cough. No nausea, no vomiting. No abdominal pain. Pain to the leg area is currently controlled. PHYSICAL EXAMINATION: Blood pressure 147/83 with a pulse of 87, temperature 98.4. He is 96% on room air. General description is a middle-aged male up in the bed in no distress. RESPIRATORY SYSTEM: Unlabored breathing, clear to auscultation anteriorly. HEART: S1, S2. Regular rate and rhythm. ABDOMEN: Soft, no tenderness. LABS: No new labs have been obtained today. DIAGNOSTIC IMPRESSION AND PLAN: Patient with C7 epidural abscess status post surgical drainage and removal of the infected hardware. The patient is covered with vancomycin, pharmacy to dose to continue. Duration of antibiotic will be total of 6 weeks and close outpatient followup. MMODL / IJN: [id number] /
[2019-11-10 07:05] LABS: Glucose,Whole Blood 72 mg/dL (75-99)
[2019-11-10] MEDS: INSULIN ASPART (NovoLOG) 100 UNIT/ML VIAL SQ SCH ×7 (07:29→21:22)
[2019-11-10] MEDS: SENNOSIDES-DOCUSATE SODIUM 1 EACH TAB PO SCH (07:44)
[2019-11-10] MEDS: GABAPENTIN 300 MG CAP PO SCH ×2 (07:45→21:28)
[2019-11-10] MEDS: FAMOTIDINE 20 MG TAB PO SCH (07:45)
[2019-11-10] MEDS: FENOFIBRATE 160 MG TAB PO SCH (07:45)
[2019-11-10] MEDS: CYCLOBENZAPRINE 5 MG TAB PO SCH ×3 (07:45→21:28)
[2019-11-10] MEDS: lamoTRIgine 100 MG TAB PO SCH ×2 (07:45→21:28)
[2019-11-10] MEDS: NAPROXEN 250 MG TAB PO SCH ×3 (07:45→21:29)
[2019-11-10] MEDS: MULTIVITAMINS, THERA 1 EACH TAB PO SCH (07:46)
[2019-11-10] MEDS: amLODIPine 5 MG TAB PO SCH (07:46)
[2019-11-10] MEDS: DULoxetine HCL 30 MG CAPSULE.DR PO SCH ×2 (07:46→21:29)
[2019-11-10] MEDS: METOPROLOL TARTRATE 25 MG TAB PO SCH ×2 (07:46→21:28)
[2019-11-10] MEDS: SODIUM CHLORIDE 0.9% 1,000 ML IV SCH ×2 (07:47→20:44)
[2019-11-10] MEDS: ACETAMINOPHEN TAB 325 MG TAB PO PRN (10:34)
[2019-11-10 12:02] LABS: Glucose,Whole Blood 85 mg/dL (75-99)
--- NOTE | 2019-11-10 12:45 | P.PN ---
Subjective 54-year-old patient who follows with Dr. thomas from [place]. Chronic stable medical conditions include diabetes mellitus type II on insulin p ump.,GERD, hypertension, obstructive sleep apnea uses CPAP, chronic pancreatitis, bipolar disorder and chronic low back pain. 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 underwent cervical spine surgery by Dr. Shanks-on October 09. Has also had recently nondisplaced proximal tibia fracture being managed with a knee brace. Recently felt to have some light conditions of the bone. DrKranthi by oncology including a bone scan, skeletal survey, negative protein electrophoresis. No further workup per oncology. Also last admission seen by psychiatry recommended to cut back on narcotics. This occasion he had fallen backwards at home.found to have displacement of the internal fixation and graft at C6 to T1. Patient underwent surgery in October 30. With removal of hardware and revision fixation At multiple levels. Local abscess was cleaned out. Cultures growing Staphylococcus epidermidis. Has a cervical collar and a drain in place.Valium was discontinued by me for patient being lethargic. . Added Flexeril.patient ordered finger foods. Both arms are weak. I did stop the Dilaudid eventually because of drowsiness. daytime dose of Seroquel was also discontinued. Today-. Laying in bed. Feeling better. Oral intake does fluctuate. 11/10/2019 No overnight events, patient is being evaluated for discharge to subacute rehabilitation. Constitutional: Denied any fatigue denied any fever. Cardio vascular: denied any chest pain, palpitations Gastrointestinal denied any nausea vomiting Pulmonary: Denied any shortness of breath cough Neurologic denied any new focal deficits All inpatient medications were reviewed and appropriate changes in these medications as dictated in the interval history and assessment and plan. Objective - Vital Signs Vital signs: Vital Signs Temp 98.0 F 11/10/19 06:49 Pulse 99 11/10/19 06:49 Resp 18 11/10/19 06:49 BP 128/85 11/10/19 06:49 Pulse Ox 93 L 11/10/19 06:49 Intake & Output 11/09/19 11/10/19 11/10/19 18:59 06:59 18:59 Other: Voiding Method Urinal Toilet Urinal # Voids 2 - Exam PHYSICAL EXAMINATION: GENERAL: The patient is alert and oriented x3, not in any acute distress. Well developed, well nourished. HEENT: Pupils are round and equally reacting to light. EOMI. No scleral icterus. No conjunctival pallor. Normocephalic, . No pharyngeal erythema. No thyromegaly. Patient has a cervical collar in place CARDIOVASCULAR: S1 and S2 present. No murmurs, rubs, or gallops. PULMONARY: Chest is clear to auscultation, no wheezing or crackles. ABDOMEN: Soft, nontender, nondistended, normoactive bowel sounds. No palpable organomegaly. MUSCULOSKELETAL: No joint swelling or deformity. EXTREMITIES: No cyanosis, clubbing, or pedal edema. NEUROLOGICAL: Gross neurological examination did not reveal any focal deficits. SKIN: No rashes. - Labs CBC & Chem 7: 11/08/19 07:46 11/10/19 08:43 Labs: Abnormal Lab Results - Last 24 Hours (Table) 11/09/19 11/09/19 11/10/19 Range/Units 16:39 20:19 06:48 POC Glucose (mg/dL) 123 H 236 H 72 L (75-99) mg/dL Assessment and Plan Plan: Assessment: -Acute toxic encephalopathy from medications. Which resolved at this time patient is at his baseline - October 10-C6 C7 T1 removal of bone fragments from fracture of C7, decompression fusion and plating-4 C7 fracture, cervical spine stenosis , myelopathy disc herniation: Now presented with trauma with Computed tomography scan of the spine showing dislocation of anterior cervical fusionand C7 increased kyphosis at C6-C7; fracture of the left C6 lamina-status post replacement and repair. -C7 epidural abscess that was cleared out. Cultures positive for Staphylococcus epidermidis which is a contamination. -Diabetes mellitus type 2 chronically insulin pump, controlled now -GERD -Essential hypertension -Obstructive sleep apnea uses a BiPAP machine -Bipolar disorder -Chronic low back pain -Obesity BMI 31.7 -Chronic nicotine dependence patient cigarette smoker -COPD in a current smoker -chronic pancreatitis. -Bilateral upper extremity weakness .
[2019-11-10] MEDS: VANCOMYCIN 1,500 MG in SODIUM CHLORIDE 0.9% 250 ML IVPB SCH (13:28)
--- NOTE | 2019-11-10 13:32 | P.DS ---
Providers Date of admission: 10/30/19 21:55 Expected date of discharge: 11/10/19 Attending physician: Srinivas Barger Consults: 10/31/19 12:33 Consult Physician Routine Consulting Provider: Guy Mendoza Consult Reason/Comments: medical management Do you want consulting provider notified?: Already Contacted 10/31/19 19:12 Consult Physician Routine Consulting Provider: Carmine Burton Consult Reason/Comments: Deep space infection, epidural abscess anterior cervical C7 Do you want consulting provider notified?: Yes 11/04/19 10:06 Consult Physician Routine Consulting Provider: Rikki Ulrich Consult Reason/Comments: IPR Do you want consulting provider notified?: Yes 11/04/19 15:44 Consult Physician Routine Consulting Provider: Jesus Goodman Consult Reason/Comments: Urinary retention Do you want consulting provider notified?: Yes Primary care physician: Jordon Wood - Discharge Diagnosis(es) (1) Abscess in epidural space of cervical spine Current Visit: Yes Status: Acute (2) Failed hardware Current Visit: Yes Status: Acute (3) Fall Current Visit: Yes Status: Acute (4) Neck fracture Current Visit: Yes Status: Acute (5) Diabetes mellitus Current Visit: No Status: Acute (6) Hyperglycemia Current Visit: No Status: Acute (7) Hypertension Current Visit: No Status: Acute (8) S/P cervical spinal fusion Current Visit: Yes Status: Acute (9) Obesity (BMI 30.0-34.9) Current Visit: Yes Status: Acute (10) Nicotine dependence Current Visit: Yes Status: Acute (11) COPD (chronic obstructive pulmonary disease) Current Visit: Yes Status: Acute Hospital Course: This is a pleasant 54-year-old male known to our service who presented with displacement of internal fixation and grafting from C6-T1 status post fall. Patient has a recent history of anterior cervical decompression and fusion at C5-6 and C7-T1 with corpectomy of C7 due to a burst fracture of C7 performed on 10/11/2019. He underwent further surgical intervention during this admission. He is status post revision anterior cervical decompression and fusion of C6-T1 extending up to C5 with revision corpectomy of C7 with strut cage extending from C6-T1 and posterior cervical fusion C5-T2 performed on 10/31/2019. Initially he had significant difficulty with pain control postoperatively and spent most of the days with difficulty with pain control or any significantly lethargic state. Medicine was able to change of his medications and he has been much better controlled. Patient has been much more awake, alert, and oriented with a past 4 days. He is answering questions appropriately. He is working with physical therapy. He is ready for discharge to [facility]. He does continue to have pain in the cervical spine but his pain is better controlled than it was initially postoperatively. Postoperatively he has had improvement of symptoms overall. He does continue to have weakness of the left upper extremity but is significantly improved following his surgical intervention performed on 10/11/2019. He has not had any neurological status change following his revision surgical intervention performed on 10/31/2019. He does continue to have some pain at the surgical sites. Patient has been seen by multiple medical providers during his admission including medicine and infectious disease. He is cleared for discharge by medicine and infectious disease. During surgical intervention he was found to have a cervical epidural abscess positive for Staphylococcus epidermidis. He has been on vancomycin per infectious disease. He has had a PICC line placed. Infectious disease will manage his PICC line antibiotic medication at discharge. Condition on day of discharge stable. Patient will be discharged [facility]. Patient was cleared preoperatively for surgery by medicine. Patient currently denies any nausea, vomiting, fever, or chills. Patient is eating and voiding freely without difficulty. Patient may shower Tegaderm dressing intact over the posterior cervical spine. Patient may remove Tegaderm dressing in 3 days and shower without a dressing at that time. Patient may shower without a dressing intact over the anterior cervical spine. Patient must keep hard cervical collar intact at all times. Patient should avoid excessive neck flexion, extension, rotation, and lateral sidebending; no overhead lifting; no lifting greater than 10 pounds. MAPS has been reviewed today, , with an Overall Overdose Risk Score of . An "Opiod Start Talking" Form has been signed and placed in the patient's chart. A prescription has been written for Percocet 10 mg/325 mg 1-2 tabs every 4 hours as needed for pain, dispensed #84. Patient should try to avoid anti- inflammatory medication over the next 5 weeks postoperatively. Patient is given prescription for Neurontin 300 mg, BID times a day, dispense #30. Patient is given a prescription for Cymbalta 30 mg 1 tab twice a day, dispense #30. Patient is also given prescriptions for Cyclobenzaprine, Flomax, Naprosyn, and Senokot by medicine. Patient should avoid excessive cervical flexion, extension, side bending, and rotation; avoid overhead lifting; no lifting greater than 10 pounds. Patient's past medical history includes diabetes type 2 mellitus with incision pump with uncontrolled hyperglycemia, essential hypertension, chronic low back pain, obesity, chronic nicotine dependence, and COPD. Physical Exam Cervical Fusion: Status post surgical day number 10 Patient is currently sitting upright at the bedside Patient is awake, alert, and oriented 3; he is answering questions appropriately Vital signs stable Good chest excursion with deep inspiration and expiration Anterior cervical incision site is clean, dry, and intact with glue intact Posterior cervical incision site is clean, dry, and intact with Tegaderm dressing intact Hard cervical collar remains intact Adequate but reduced range of motion of the cervical spine with adequate flexion, extension, and bilateral rotation [employer] strength, 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, interosseous strength, biceps strength, triceps strength, and shoulder strength positive sustained bilaterally Patient does have some chronic weakness and evidence of atrophy at the left upper extremity but has had significant improvement of active range of motion of the left upper extremity postoperatively Motor strength of the left upper extremity is 3-/5 including the triceps Motor strength in the left upper extremity is 3/5 including interosseous and thumb extension Motor strength of the right upper extremity is 3/5 including thumb extension Procedures: Status post revision anterior cervical decompression and fusion of C6-T1 extending up to C5 with revision corpectomy of C7 with strut cage extending from C6-T1 and posterior cervical fusion C5-T2 performed on 10/31/2019 Patient Condition at Discharge: Stable Plan - Discharge Summary Discharge Rx Participant: Yes New Discharge Prescriptions: New Cyclobenzaprine [Flexeril] 5 mg PO TID tab Tamsulosin [Flomax] 0.4 mg PO PC-SUPPER cap.er.24h Naproxen [Naprosyn] 250 mg PO TID tab Sennosides-Docusate Sodium [Senokot-S] 4 each PO DAILY tab DULoxetine HCL [Cymbalta] 30 mg PO BID #30 cap Gabapentin [Neurontin] 300 mg PO BID PRN #30 cap PRN Reason: Pain oxyCODONE-APAP 10-325MG [Percocet 10-325 mg] 1 - 2 tab PO Q4HR PRN #84 tab PRN Reason: Pain Insulin Detemir (Levemir) [Levemir] 60 unit SQ HS syr Continue Fenofibrate Nanocrystallized [Fenofibrate] 145 mg PO DAILY Montelukast [Singulair] 10 mg PO HS Metoprolol Tartrate [Lopressor] 25 mg PO BID lamoTRIgine 200 mg PO BID amLODIPine [Norvasc] 5 mg PO DAILY Multivitamins, Thera [Multivitamin (formulary)] 1 tab PO DAILY Ergocalciferol [Vitamin D2 (DRISDOL)] 50,000 unit PO SA Albuterol Sulfate [Ventolin HFA] 2 puff INHALATION RT-Q4H PRN PRN Reason: Shortness Of Breath Diclofenac Sodium Gel [Voltaren Gel] 2 gm TOPICAL QID PRN PRN Reason: ARMS Dicyclomine [Bentyl] 20 mg PO Q6H PRN PRN Reason: CRAMPS DULoxetine HCL [Cymbalta] 30 mg PO BID traZODone HCL [Desyrel] 100 mg PO HS INSULIN ASPART (NovoLOG) [NovoLOG (formulary)] See Protocol SQ QID Pravastatin Sodium [Pravachol] 40 mg PO HS #30 tab Gabapentin [Neurontin] 300 mg PO BID oxyCODONE-APAP 10-325MG [Percocet 10-325 mg] 1 - 2 tab PO Q4H PRN PRN Reason: Pain Changed Insulin Glargine,Hum.rec.anlog [Basaglar Kwikpen U-100] 60 unit SQ HS #0 Famotidine 20 mg PO BID #0 QUEtiapine FUMARATE [SEROquel] 200 mg PO HS #0 Discontinued Melatonin 10 mg PO HS QUEtiapine [SEROquel] 100 mg PO BID@0800,1200 Baclofen [Lioresal] 10 mg PO TID PRN #21 tab PRN Reason: Muscle Spasm diazePAM [Valium] 5 mg PO QID PRN 7 Days #28 tab PRN Reason: Anxiety Discharge Medication List Fenofibrate Nanocrystallized [Fenofibrate] 145 mg PO DAILY 08/07/13 [History] Metoprolol Tartrate [Lopressor] 25 mg PO BID 08/07/13 [History] Montelukast [Singulair] 10 mg PO HS 08/07/13 [History] lamoTRIgine 200 mg PO BID 10/01/16 [History] Multivitamins, Thera [Multivitamin (formulary)] 1 tab PO DAILY 10/22/16 [History] amLODIPine [Norvasc] 5 mg PO DAILY 10/22/16 [History] Ergocalciferol [Vitamin D2 (DRISDOL)] 50,000 unit PO SA 10/31/18 [History] Albuterol Sulfate [Ventolin HFA] 2 puff INHALATION RT-Q4H PRN 09/02/19 [History] DULoxetine HCL [Cymbalta] 30 mg PO BID 09/02/19 [History] Diclofenac Sodium Gel [Voltaren Gel] 2 gm TOPICAL QID PRN 09/02/19 [History] Dicyclomine [Bentyl] 20 mg PO Q6H PRN 09/02/19 [History] INSULIN ASPART (NovoLOG) [NovoLOG (formulary)] See Protocol SQ QID 09/02/19 [History] traZODone HCL [Desyrel] 100 mg PO HS 09/02/19 [History] Pravastatin Sodium [Pravachol] 40 mg PO HS #30 tab 09/04/19 [Rx] Gabapentin [Neurontin] 300 mg PO BID 10/06/19 [History] oxyCODONE-APAP 10-325MG [Percocet 10-325 mg] 1 - 2 tab PO Q4H PRN 10/30/19 [History] Cyclobenzaprine [Flexeril] 5 mg PO TID tab 11/09/19 [Rx] Famotidine 20 mg PO BID #0 11/09/19 [Rx] Insulin Glargine,Hum.rec.anlog [Basaglar Kwikpen U-100] 60 unit SQ HS #0 11/09/19 [Rx] Naproxen [Naprosyn] 250 mg PO TID tab 11/09/19 [Rx] QUEtiapine FUMARATE [SEROquel] 200 mg PO HS #0 11/09/19 [Rx] Sennosides-Docusate Sodium [Senokot-S] 4 each PO DAILY tab 11/09/19 [Rx] Tamsulosin [Flomax] 0.4 mg PO PC-SUPPER cap.er.24h 11/09/19 [Rx] DULoxetine HCL [Cymbalta] 30 mg PO BID #30 cap 11/10/19 [Rx] Gabapentin [Neurontin] 300 mg PO BID PRN #30 cap 11/10/19 [Rx] Insulin Detemir (Levemir) [Levemir] 60 unit SQ HS syr 11/10/19 [Rx] oxyCODONE-APAP 10-325MG [Percocet 10-325 mg] 1 - 2 tab PO Q4HR PRN #84 tab 11/10/19 [Rx] Follow up Appointment(s)/Referral(s): Rg Crisostomo, YUKO [[employer]YS[employer]] - 1 Week (Patient may follow-up with Rg Crisostomo PA-C or Dr. Jose Manuel Barger at [facility] in 1 week following discharge. ) Jordon Wood MD [Primary Care Provider] - 1-2 days Activity/Diet/Wound Care/Special Instructions: 1. Patient must keep hard cervical collar intact at all times 2. Patient may shower with hard cervical collar intact and Tegaderm dressing intact 3. Keep incision sites clean, dry, and intact 4. Keep posterior candace intact till follow-up appointment 5. Avoid excessive active range of motion of the cervical spine 6. Avoid overhead lifting 7. No lifting greater than 10 pounds 8. Take medications as prescribed Discharge Disposition: TRANSFER TO SNF/ECF
--- NOTE | 2019-11-10 15:18 | PN ---
PROGRESS NOTE DATE OF SERVICE: 11/10/2019 REASON FOR FOLLOWUP: C7 epidural abscess. INTERVAL HISTORY: The patient is currently afebrile. The patient is breathing comfortably. Neck pain is currently controlled. No chest pain, shortness of breath or cough. No abdominal pain or diarrhea. PHYSICAL EXAMINATION: Blood pressure is 128/85 with a pulse of 99, temperature 98. He is 93% on room air. General description is a middle-aged male lying in bed in no distress. RESPIRATORY SYSTEM: Unlabored breathing. Clear to auscultation anteriorly. HEART: S1, S2. Regular rate and rhythm. ABDOMEN: Soft. No tenderness. LABS: Creatinine is 1.20. Blood culture has been negative. DIAGNOSTIC IMPRESSION AND PLAN: Patient with a C7 epidural abscess, status post drainage of the abscess and removal of infected hardware. The patient's culture is positive for Staph epidermidis. Blood culture has been negative. Patient is to continue with vancomycin, Pharmacy to dose, for a total of 6 weeks with close outpatient followup. MMODL / IJN: [id number] /
[2019-11-10 16:57] LABS: Glucose,Whole Blood 177 mg/dL (75-99)
[2019-11-10] MEDS: TAMSULOSIN 0.4 MG CAP.ER.24H PO SCH (18:04)
[2019-11-10 21:06] LABS: Glucose,Whole Blood 107 mg/dL (75-99)
[2019-11-10] MEDS: PRAVASTATIN SODIUM 40 MG TAB PO SCH (21:28)
[2019-11-10] MEDS: MONTELUKAST 10 MG TAB PO SCH (21:28)
[2019-11-10] MEDS: traZODone HCL 100 MG TAB PO SCH (21:28)
[2019-11-10] MEDS: QUEtiapine 200 MG TAB PO SCH (21:29)
[2019-11-10] MEDS: INSULIN DETEMIR (LEVEMIR) 100 UNIT/ML SYR SQ SCH (21:31)
[2019-11-11] MEDS: HYDROmorphone 0.5 MG/0.5 ML SYRINGE IVP PRN ×2 (01:06→05:44)
[2019-11-11 04:22] LABS: Calcium 8.3 mg/dL (8.4-10.2)
[2019-11-11 04:28] LABS: Glucose,Whole Blood 180 mg/dL (75-99)
--- NOTE | 2019-11-11 04:42 | CT ---
EXAMINATION TYPE: CT angio chest DATE OF EXAM: 11/11/2019 COMPARISON: HISTORY: elevated d-dimer CT DLP: 726.3 mGycm Automated exposure control for dose reduction was used. CONTRAST: Performed with IV Contrast, patient injected with 80 mL of Isovue 370. There are 3-D post processed images. There are enlarged anterior mediastinal lymph nodes that measure up to 1.6 cm. There are pretracheal and subcarinal lymph nodes measuring up to almost 3 cm. There are enlarged right bronchial lymph node s measuring up to 2.6 cm. There is patchy atelectasis at the lung bases. There is small right pleural effusion. Heart size is normal. There is no pericardial effusion. There is some diffuse coarse inter stitial density in the lungs. There is scattered multiple noncalcified pulmonary nodules that measure up to 9 mm Thoracic aorta is intact. There is no aneurysm or dissection. The ascending aorta measures 3.6 cm. There is spurring in the thoracic spine. There is mild compression deformity of lower thoracic verteb ra up to 15%. I see no focal bone destruction. Spine appears unchanged compared to old exam. There are no filling defects in the pulmonary arteries. IMPRESSION: Mediastinal and bronchial adenopathy. Interstitial pulmonary infiltrates and multiple small bilateral pulmonary nodules. This could relate to sarcoidosis. No evidence of pulmonary embolism. Infiltrates and atelectasis at the lung bases and Right pleural effusion appear new compared to old e xam. Mediastinal and bronchial adenopathy unchanged. Interstitial lung disease unchanged.
[2019-11-11] MEDS: VANCOMYCIN 1,500 MG in SODIUM CHLORIDE 0.9% 250 ML IVPB SCH (05:44)
[2019-11-11 06:53] LABS: Glucose,Whole Blood 98 mg/dL (75-99)
[2019-11-11] MEDS: INSULIN ASPART (NovoLOG) 100 UNIT/ML VIAL SQ SCH ×4 (07:12→14:17)
[2019-11-11] MEDS: FAMOTIDINE 20 MG TAB PO SCH (08:05)
[2019-11-11] MEDS: GABAPENTIN 300 MG CAP PO SCH (08:05)
[2019-11-11] MEDS: amLODIPine 5 MG TAB PO SCH (08:05)
[2019-11-11] MEDS: METOPROLOL TARTRATE 25 MG TAB PO SCH (08:05)
[2019-11-11] MEDS: FENOFIBRATE 160 MG TAB PO SCH (08:05)
[2019-11-11] MEDS: CYCLOBENZAPRINE 5 MG TAB PO SCH ×2 (08:05→15:49)
[2019-11-11] MEDS: SENNOSIDES-DOCUSATE SODIUM 1 EACH TAB PO SCH (08:05)
[2019-11-11] MEDS: lamoTRIgine 100 MG TAB PO SCH (08:05)
[2019-11-11] MEDS: NAPROXEN 250 MG TAB PO SCH (08:06)
[2019-11-11] MEDS: MULTIVITAMINS, THERA 1 EACH TAB PO SCH (08:06)
[2019-11-11] MEDS: DULoxetine HCL 30 MG CAPSULE.DR PO SCH (08:06)
[2019-11-11] MEDS: oxyCODONE-APAP 10-325MG 1 EACH TAB PO PRN ×2 (08:16→12:35)
[2019-11-11 10:33] LABS: Glucose,Whole Blood 53 mg/dL (75-99)
[2019-11-11 11:12] LABS: Glucose,Whole Blood 160 mg/dL (75-99)
[2019-11-11] MEDS ORDERED: traMADol 50 MG TAB PO PRN (11:19)
[2019-11-11] MEDS ORDERED: SODIUM CHLORIDE 0.9% 1,000 ML IV SCH (11:30)
--- NOTE | 2019-11-11 12:12 | P.CRDCN ---
History of Present Illness History of present illness: HISTORY OF PRESENTING ILLNESS This is a pleasant 54-year-old male past medical history significant for hypertension, dyslipidemia, diabetes mellitus, obstructive sleep apnea, chronic back pain status post fusion, chronic pancreatitis and chronic nicotine dependence. He denies prior history of coronary artery disease and does not follow with a master control operator for any reason. We have been asked to see in consultation for chest pain. He is currently being treated for C7 epidural abscess status post drainage and removal of infected hardware culture positive for staph epidermidis. Yesterday afternoon he had an episode of chest discomfort that started in the left scapular region radiated through to the left anterior chest wall that was very sharp in nature, exacerbated by deep inspiration as well as movement of his torso or left arm. An EKG and troponins were ordered. EKG revealed sinus mechanism and troponin trend was 0.09, 0.105 and 0.104. His d-dimer also came back elevated prompting a CT angiogram of the chest with revealing no evidence of pulmonary embolism however mediastinal bronchial adenopathy was noted along with interstitial pulmonary infiltrates and multiple small bilateral pulmonary nodules, infiltrates and atelectasis at the lung bases with a right pleural effusion new compared to previous exam. Other laboratory data reviewed, sodium 134, potassium 4.0, creatinine 1.43, WBC 9.1, hemoglobin 9.9 and platelets 251. Currently maintained on amlodipine 5 mg daily, fenofibrate 160 mg daily, metoprolol 25 mg twice a day and pravastatin 40 mg daily. REVIEW OF SYSTEMS At the time of my exam: CONSTITUTIONAL: Denies fever or chills. CARDIOVASCULAR: Denies chest pain, shortness of breath, orthopnea, PND or palpitations. RESPIRATORY: Denies cough. GASTROINTESTINAL: Denies abdominal pain, diarrhea, constipation, nausea or vomiting. MUSCULOSKELETAL: Complains of back pain. NEUROLOGIC: Denies numbness, tingling or weakness. ENDOCRINE: Denies fatigue, weight change, polydipsia or polyurina. GENITOURINARY: Denies burning, hematuria or urgency with micturation. HEMATOLOGIC: Denies history of anemia or bleeding. PHYSICAL EXAMINATION Blood pressure 134/85 heart rate 97 afebrile and maintaining oxygen saturation on room air. CONSTITUTIONAL: No apparent distress. HEENT: Head is normocephalic. Pupils are equal, round. Sclerae anicteric. Mucous membranes of the mouth are moist. Neck brace in place. CHEST EXAMINATION: Lungs are clear to auscultation. No chest wall tenderness is noted on palpation or with deep breathing. HEART EXAMINATION: Regular rate and rhythm. S1, S2 heard. No murmurs, gallops or rub. ABDOMEN: Soft, nontender. Positive bowel sounds. EXTREMITIES: 2+ peripheral pulses, no lower extremity edema and no calf tenderness. NEUROLOGIC EXAMINATION: Patient is awake, alert and oriented x3. ASSESSMENT Chest pain, atypical for angina. Likely related to musculoskeletal strain. Pain is reproducible and pleuritic. Elevated troponin, not consistent with an acute coronary event. Likely related to ongoing infectious process. Cervical spine abscess Hypertension Dyslipidemia Diabetes mellitus Obstructive sleep apnea Chronic nicotine dependence Obesity, BMI 33 PLAN The chest pain the patient describes as very pleuritic and reproducible which is atypical for angina. The troponins are elevated but flat not consistent with an acute coronary event. We will check an echocardiogram to assess for wall motion abnormalities. Recommend outpatient stress testing in approximately 4-6 weeks when the patient's infection has healed. This plan has been discussed in great detail with the patient and he is agreeable. Smoking cessation recommended. Given his history of diabetes mellitus he should ideally be on an SHANEKA/ARB in ad dition to or in place of norvasc. Thank you kindly for this consultation. Nurse Practitioner note has been reviewed, I agree with a documented findings and plan of care. Patient was seen and examined. 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, pancreatitis History of Any Multi-Drug Resistant Organisms: MRSA Date of last positivie culture/infection: 11/03/2008 MDRO Source:: spine Past Surgical History: Cholecystectomy Additional Past Surgical History / Comment(s): spinal fusion at L4 and L5, pancreatic surgery for pseudocyst w/stent Past Anesthesia/Blood Transfusion Reactions: No Reported Reaction Past Psychological History: Anxiety, Bipolar, Depression Smoking Status: Current every day smoker Past Alcohol Use History: None Reported Past Drug Use History: None Reported - Past Family History Mother Family Medical History: Hypertension Additional Family Medical History / Comment(s): Pt states mother had no health problems. Father Family Medical History: No Reported History Additional Family Medical History / Comment(s): pt stated his father is - had no medicals problems and of natural causes. Medications and Allergies Home Medications Medication Instructions Recorded Confirmed Type Fenofibrate Nanocrystallized 145 mg PO DAILY 08/07/13 10/30/19 History [Fenofibrate] Metoprolol Tartrate [Lopressor] 25 mg PO BID 08/07/13 10/30/19 History Montelukast [Singulair] 10 mg PO HS 08/07/13 10/30/19 History lamoTRIgine 200 mg PO BID 10/01/16 10/30/19 History Multivitamins, Thera [Multivitamin 1 tab PO DAILY 10/22/16 10/30/19 History (formulary)] amLODIPine [Norvasc] 5 mg PO DAILY 10/22/16 10/30/19 History Ergocalciferol [Vitamin D2 50,000 unit PO SA 10/31/18 10/30/19 History (DRISDOL)] Albuterol Sulfate [Ventolin HFA] 2 puff INHALATION RT-Q4H PRN 09/02/19 10/30/19 History DULoxetine HCL [Cymbalta] 30 mg PO BID 09/02/19 10/30/19 History Diclofenac Sodium Gel [Voltaren 2 gm TOPICAL QID PRN 09/02/19 10/30/19 History Gel] Dicyclomine [Bentyl] 20 mg PO Q6H PRN 09/02/19 10/30/19 History INSULIN ASPART (NovoLOG) [NovoLOG See Protocol SQ QID 09/02/19 10/30/19 History (formulary)] traZODone HCL [Desyrel] 100 mg PO HS 09/02/19 10/30/19 History Pravastatin Sodium [Pravachol] 40 mg PO HS #30 tab 09/04/19 10/30/19 Rx Gabapentin [Neurontin] 300 mg PO BID 10/06/19 10/30/19 History oxyCODONE-APAP 10-325MG [Percocet 1 - 2 tab PO Q4H PRN 10/30/19 10/30/19 History 10-325 mg] Cyclobenzaprine [Flexeril] 5 mg PO TID tab 11/09/19 Rx Famotidine 20 mg PO BID #0 11/09/19 10/30/19 Rx Insulin Glargine,Hum.rec.anlog 60 unit SQ HS #0 11/09/19 10/30/19 Rx [Basaglar Kwikpen U-100] QUEtiapine FUMARATE [SEROquel] 200 mg PO HS #0 11/09/19 10/30/19 Rx Sennosides-Docusate Sodium 4 each PO DAILY tab 11/09/19 Rx [Senokot-S] Tamsulosin [Flomax] 0.4 mg PO PC-SUPPER cap.er.24h 11/09/19 Rx DULoxetine HCL [Cymbalta] 30 mg PO BID #30 cap 11/10/19 Rx Gabapentin [Neurontin] 300 mg PO BID PRN #30 cap 11/10/19 Rx Insulin Detemir (Levemir) [Levemir] 60 unit SQ HS syr 11/10/19 Rx Vancomycin HCl in 5 % Dextrose 1.5 gm IV BID #56 plast..bag 11/10/19 Rx [Vancomycin 1 Gram/250 ml-D5w] oxyCODONE-APAP 10-325MG [Percocet 1 - 2 tab PO Q4HR PRN #84 tab 11/10/19 Rx 10-325 mg] traMADol HCL [Ultram] 50 mg PO Q4HR PRN 3 Days #18 tab 11/11/19 Rx Allergies Allergy/AdvReac Type Severity Reaction Status Date / Time haloperidol [From Haldol] AdvReac Hallucinati Verified 10/30/19 20:27 ons haloperidol lactate AdvReac Hallucinati Verified 10/30/19 20:27 [From Haldol] ons Physical Exam Vitals: Vital Signs Temp Pulse Resp BP Pulse Ox 11/11/19 08:00 97 18 11/11/19 07:00 97.9 F 97 18 134/85 90 L 11/11/19 02:10 98.3 F 98 115/74 92 L 11/10/19 18:45 98.2 F 102 H 157/92 92 L 11/10/19 15:29 98.6 F 99 18 137/84 95 Intake and Output 11/10/19 11/11/19 11/11/19 22:59 06:59 14:59 Other: Voiding Method Toilet Toilet Toilet Urinal Urinal Urinal # Voids 1 1 Results 11/08/19 07:46 11/11/19 03:46 Cardiac Enzymes 11/10/19 11/10/19 11/11/19 Range/Units 16:01 22:46 03:46 Troponin I 0.097 H* 0.105 H* 0.104 H* (0.000-0.034) ng/mL Comprehensive Metabolic Panel 11/11/19 Range/Units 03:46 Sodium 134 L (137-145) mmol/L Potassium 4.0 (3.5-5.1) mmol/L Chloride 99 (98-107) mmol/L Carbon Dioxide 31 H (22-30) mmol/L BUN 17 (9-20) mg/dL Creatinine 1.43 H (0.66-1.25) mg/dL Glucose 204 H (74-99) mg/dL Calcium 8.3 L (8.4-10.2) mg/dL Current Medications Generic Name Dose Route Start Last Admin Trade Name Freq PRN Reason Stop Dose Admin Acetaminophen 650 mg 10/30/19 21:55 11/10/19 10:34 Tylenol Tab PO 650 mg Q6HR PRN Administration Mild Pain or Fever > 100.5 Albuterol Sulfate 2.5 mg 10/31/19 00:09 11/08/19 07:38 Ventolin Nebulized INHALATION 2.5 mg RT-Q4H PRN Administration Shortness Of Breath Amlodipine Besylate 5 mg 10/31/19 09:00 11/11/19 08:05 Norvasc PO 5 mg DAILY ASHLEY Administration Benzocaine/Menthol 1 each 10/31/19 19:09 Cepacol Lozenge MUCOUS MEM Q4HR PRN Sore Throat Bisacodyl 10 mg 10/31/19 19:09 Dulcolax RECTAL DAILY PRN Constipation Cyclobenzaprine HCl 5 mg 11/02/19 22:00 11/11/19 08:05 Flexeril PO 5 mg TID ASHLEY Administration Dicyclomine HCl 20 mg 10/31/19 00:09 Bentyl PO Q6H PRN CRAMPS Duloxetine HCl 30 mg 10/31/19 09:00 11/11/19 08:06 Cymbalta PO 30 mg BID ASHLEY Administration Ergocalciferol 50,000 unit 10/31/19 09:00 11/07/19 08:17 Vitamin D2 PO 50,000 unit Sa@0900 ASHLEY Administration Famotidine 40 mg 10/31/19 09:00 11/11/19 08:05 Pepcid PO 40 mg DAILY ASHLEY Administration Fenofibrate 160 mg 10/31/19 09:00 11/11/19 08:05 Lofibra PO 160 mg DAILY ASHLEY Administration Gabapentin 300 mg 10/31/19 09:00 11/11/19 08:05 Neurontin PO 300 mg BID ASHLEY Administration Sodium Chloride 1,000 mls @ 75 mls/hr 10/31/19 19:15 11/10/19 20:44 Saline 0.9% IV Not Given .[id number] ASHLEY Vancomycin HCl 1,500 mg/ 250 mls @ 125 mls/hr 11/06/19 14:00 11/11/19 05:44 Sodium Chloride IVPB 125 mls/hr Q16H ASHLEY Administration Sodium Chloride 1,000 mls @ 100 mls/hr 11/11/19 11:30 Saline 0.9% IV .Q10H [facility] Insulin Aspart 0 unit 10/31/19 22:15 11/11/19 07:12 Novolog SQ Not Given ACHS [facility] Protocol Insulin Aspart 10 unit 11/09/19 17:30 11/11/19 11:13 Novolog SQ Not Given AC-TID [facility] Insulin Detemir 60 unit 11/09/19 21:00 11/10/19 21:31 Levemir SQ 60 unit HS ASHLEY Administration Lamotrigine 200 mg 10/31/19 09:00 11/11/19 08:05 Lamictal PO 200 mg BID ASHLEY Administration Magnesium Hydroxide 2,400 mg 10/31/19 19:09 Milk Of Magnesia PO DAILY PRN Constipation Metoprolol Tartrate 25 mg 10/31/19 09:00 11/11/19 08:05 Lopressor PO 25 mg BID ASHLEY Administration Miscellaneous Information 0 each 11/11/19 21:00 Vancomycin Trough Due MISCELLANE 11/11/19 21:01 DIRECTED ONE Montelukast Sodium 10 mg 10/31/19 21:00 11/10/19 21:28 Singulair PO 10 mg HS ASHLEY Administration Multivitamins 1 each 10/31/19 09:00 11/11/19 08:06 Theragran PO 1 each DAILY ASHLEY Administration Naloxone HCl 0.2 mg 10/30/19 21:55 Narcan IV Q2M PRN Opioid Reversal Ondansetron HCl 4 mg 10/30/19 21:55 10/30/19 22:14 Zofran IVP 4 mg Q8HR PRN Administration Nausea And Vomiting Oxycodone/Acetaminophen 1 - 2 each 10/31/19 19:13 11/11/19 08:16 Percocet 10-325 PO 2 each Q4H PRN Administration Pain Pravastatin Sodium 40 mg 10/31/19 21:00 11/10/19 21:28 Pravachol PO 40 mg HS ASHLEY Administration Quetiapine Fumarate 200 mg 11/07/19 22:30 11/10/19 21:29 Seroquel PO 200 mg HS ASHLEY Administration Senna/Docusate Sodium 4 each 11/01/19 09:00 11/11/19 08:05 Senokot-S PO 4 each DAILY ASHLEY Administration Tamsulosin HCl 0.4 mg 11/04/19 18:30 11/10/19 18:04 Flomax PO 0.4 mg PC-SUPPER ASHLEY Administration Tramadol HCl 50 mg 11/11/19 11:19 Ultram PO QID PRN Pain/Discomfort Trazodone HCl 100 mg 10/31/19 21:00 11/10/19 21:28 Desyrel PO 100 mg HS ASHLEY Administration Intake and Output 11/10/19 11/11/19 11/11/19 22:59 06:59 14:59 Other: Voiding Method Toilet Toilet Toilet Urinal Urinal Urinal # Voids 1 1 11/08/19 07:46 11/11/19 03:46
--- NOTE | 2019-11-11 12:22 | P.PN ---
Subjective 54-year-old patient who follows with Dr. thomas from [place]. Chronic stable medical conditions include diabetes mellitus type II on insulin p ump.,GERD, hypertension, obstructive sleep apnea uses CPAP, chronic pancreatitis, bipolar disorder and chronic low back pain. 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 underwent cervical spine surgery by Dr. Shanks-on October 09. Has also had recently nondisplaced proximal tibia fracture being managed with a knee brace. Recently felt to have some light conditions of the bone. DrKranthi by oncology including a bone scan, skeletal survey, negative protein electrophoresis. No further workup per oncology. Also last admission seen by psychiatry recommended to cut back on narcotics. This occasion he had fallen backwards at home.found to have displacement of the internal fixation and graft at C6 to T1. Patient underwent surgery in October 30. With removal of hardware and revision fixation At multiple levels. Local abscess was cleaned out. Cultures growing Staphylococcus epidermidis. Has a cervical collar and a drain in place.Valium was discontinued by me for patient being lethargic. . Added Flexeril.patient ordered finger foods. Both arms are weak. I did stop the Dilaudid eventually because of drowsiness. daytime dose of Seroquel was also discontinued. Today-. Laying in bed. Feeling better. Oral intake does fluctuate. 11/10/2019 No overnight events, patient is being evaluated for discharge to subacute rehabilitation. 11/11/2019 Patient started complaining of chest pain because of which are pending EKG and troponins troponins are minimally elevated because of which a cardiology is obtaining an EKG to make sure there are no wall motion abnormalities. Patient also had a CAT scan of the chest which showed nodular lesions consistent with sarcoidosis patient will need to follow up with pulmonology as an outpatient. Patient kidney function has worsened. Probably because of contrast he received for CT angios the chest. Patient will be started on IV fluids and recheck the kidney function tomorrow. Patient will be started on tramadol discontinued with the naproxen because of poor renal function. Constitutional: Denied any fatigue denied any fever. Cardio vascular: Complaining of some chest pain which is reproducible Gastrointestinal denied any nausea vomiting Pulmonary: Denied any shortness of breath cough Neurologic denied any new focal deficits All inpatient medications were reviewed and appropriate changes in these medications as dictated in the interval history and assessment and plan. Objective - Vital Signs Vital signs: Vital Signs Temp 97.9 F 11/11/19 07:00 Pulse 97 11/11/19 08:00 Resp 18 11/11/19 08:00 BP 134/85 11/11/19 07:00 Pulse Ox 90 L 11/11/19 07:00 Intake & Output 11/10/19 11/11/19 11/11/19 18:59 06:59 18:59 Other: Voiding Method Toilet Toilet Urinal Urinal # Voids 3 1 - Exam PHYSICAL EXAMINATION: GENERAL: The patient is alert and oriented x3, not in any acute distress. Well developed, well nourished. HEENT: Pupils are round and equally reacting to light. EOMI. No scleral icterus. No conjunctival pallor. Normocephalic, . No pharyngeal erythema. No thyromegaly. Patient has a cervical collar in place CARDIOVASCULAR: S1 and S2 present. No murmurs, rubs, or gallops. PULMONARY: Chest is clear to auscultation, no wheezing or crackles. ABDOMEN: Soft, nontender, nondistended, normoactive bowel sounds. No palpable o rganomegaly. MUSCULOSKELETAL: No joint swelling or deformity. EXTREMITIES: No cyanosis, clubbing, or pedal edema. NEUROLOGICAL: Gross neurological examination did not reveal any focal deficits. SKIN: No rashes. - Labs CBC & Chem 7: 11/08/19 07:46 11/11/19 03:46 Labs: Abnormal Lab Results - Last 24 Hours (Table) 11/10/19 11/10/19 11/10/19 Range/Units 16:01 16:55 21:05 D-Dimer (<0.60) mg/L FEU Sodium (137-145) mmol/L Carbon Dioxide (22-30) mmol/L Creatinine (0.66-1.25) mg/dL Glucose (74-99) mg/dL POC Glucose (mg/dL) 177 H 107 H (75-99) mg/dL Calcium (8.4-10.2) mg/dL Troponin I 0.097 H* (0.000-0.034) ng/mL 11/10/19 11/11/19 11/11/19 Range/Units 22:46 00:52 03:46 D-Dimer 4.16 H (<0.60) mg/L FEU Sodium 134 L (137-145) mmol/L Carbon Dioxide 31 H (22-30) mmol/L Creatinine 1.43 H (0.66-1.25) mg/dL Glucose 204 H (74-99) mg/dL POC Glucose (mg/dL) (75-99) mg/dL Calcium 8.3 L (8.4-10.2) mg/dL Troponin I 0.105 H* (0.000-0.034) ng/mL 11/11/19 11/11/19 11/11/19 Range/Units 03:46 04:26 10:31 D-Dimer (<0.60) mg/L FEU Sodium (137-145) mmol/L Carbon Dioxide (22-30) mmol/L Creatinine (0.66-1.25) mg/dL Glucose (74-99) mg/dL POC Glucose (mg/dL) 180 H 53 L (75-99) mg/dL Calcium (8.4-10.2) mg/dL Troponin I 0.104 H* (0.000-0.034) ng/mL 11/11/19 Range/Units 11:09 D-Dimer (<0.60) mg/L FEU Sodium (137-145) mmol/L Carbon Dioxide (22-30) mmol/L Creatinine (0.66-1.25) mg/dL Glucose (74-99) mg/dL POC Glucose (mg/dL) 160 H (75-99) mg/dL Calcium (8.4-10.2) mg/dL Troponin I (0.000-0.034) ng/mL Assessment and Plan Plan: Assessment: -Chest pain rule out PE patient is being evaluated for acute coronary syndromes patient has mildly elevated troponins which doesn't appear to be secondary to myocardial infarction although cardiology evaluate the patient and patient is having an echocardiogram looking for any wall motion abnormalities Possibly of sarcoidosis related to follow up with pulmonary as an outpatient -Acute renal failure secondary to contrast will continue with IV fluids and repeat basic metabolic profile tomorrow. Hold off naproxen patient was started on tramadol which doesn't affect his kidney much -Acute toxic encephalopathy from medications. Which resolved at this time patient is at his baseline - October 10-C6 C7 T1 removal of bone fragments from fracture of C7, decompression fusion and plating-4 C7 fracture, cervical spine stenosis , myelopathy disc herniation: Now presented with trauma with Computed tomography scan of the spine showing dislocation of anterior cervical fusionand C7 increased kyphosis at C6-C7; fracture of the left C6 lamina-status post replacement and repair. -C7 epidural abscess that was cleared out. Cultures positive for Staphylococcus epidermidis which is a contamination. -Diabetes mellitus type 2 chronically insulin pump, controlled now -GERD -Essential hypertension -Obstructive sleep apnea uses a BiPAP machine -Bipolar disorder -Chronic low back pain -Obesity BMI 31.7 -Chronic nicotine dependence patient cigarette smoker -COPD in a current smoker -chronic pancreatitis. -Bilateral upper extremity weakness .
--- NOTE | 2019-11-11 13:01 | ECHOF ---
Referral Reason:elevated troponin MEASUREMENTS -------- HEIGHT: 188.0 cm WEIGHT: 118.8 kg BP: 115/74 RVIDd: 3.7 cm (< 3.3) IVSd: 1.7 cm (0.6 - 1.1) LVIDd: 4.8 cm (3.9 - 5.3) LVPWd: 1.6 cm (0.6 - 1.1) IVSs: 1.8 cm LVIDs: 3.5 cm LVPWs: 2.2 cm LAESV Index (A-L): 28.11 ml/m Ao Diam: 2.9 cm (2.0 - 3.7) AV Cusp: 1.7 cm (1.5 - 2.6) MV EXCURSION: 19.436 mm (> 18.000) MV EF SLOPE: 73 mm/s (70 - 150) EPSS: 0.6 cm MV E Addison: 1.46 m/s MV DecT: 120 ms MV A Addison: 1.60 m/s MV E/A Ratio: 0.91 RAP: 5.00 mmHg RVSP: 26.33 mmHg FINDINGS -------- This was a technically adequate study. The left ventricular size is normal. There is moderate concentric left ventricular hypertrophy. O verall left ventricular systolic function is normal with, an EF between 55 - 60 %. The right ventricle is mildly enlarged. Normal LA size by volume 22+/-6 ml/m2. The right atrial size is normal. Interatrial and interventricular septum intact. There is mild aortic valve sclerosis. There is no evidence of aortic regurgitation. There is no e vidence of aortic stenosis. Mild mitral annular calcification present. There is trace mitral regurgitation. Mild tricuspid regurgitation present. There is no evidence of pulmonary hypertension. The right v entricular systolic pressure, as measured by Doppler, is 26.33mmHg. There is no pulmonic regurgitation present. The aortic root size is normal. Normal inferior vena cava with normal inspiratory collapse consistent with estimated right atrial pre ssure of 5 mmHg. There is no pericardial effusion. CONCLUSIONS -------- 1. The left ventricular size is normal. 2. There is moderate concentric left ventricular hypertrophy. 3. Overall left ventricular systolic function is normal with, an EF between 55 - 60 %. 4. The right ventricle is mildly enlarged. 5. There is mild aortic valve sclerosis. 6. Mild mitral annular calcification present. 7. There is trace mitral regurgitation. 8. Mild tricuspid regurgitation present. DUPLICATOR PUNCH OPERATOR: Tiarra Yoon RDCS
--- NOTE | 2019-11-11 13:57 | P.DS ---
Providers Date of admission: 10/30/19 21:55 Expected date of discharge: 11/11/19 Attending physician: Srinivas Barger Consults: 10/31/19 12:33 Consult Physician Routine Consulting Provider: Guy Mendoza Consult Reason/Comments: medical management Do you want consulting provider notified?: Already Contacted 10/31/19 19:12 Consult Physician Routine Consulting Provider: Carmine Burton Consult Reason/Comments: Deep space infection, epidural abscess anterior cervical C7 Do you want consulting provider notified?: Yes 11/04/19 10:06 Consult Physician Routine Consulting Provider: Rikki Ulrich Consult Reason/Comments: IPR Do you want consulting provider notified?: Yes 11/04/19 15:44 Consult Physician Routine Consulting Provider: Jesus Goodman Consult Reason/Comments: Urinary retention Do you want consulting provider notified?: Yes 11/10/19 17:14 Consult Physician Routine Consulting Provider: Jani Diaz Consult Reason/Comments: elevated troponin Do you want consulting provider notified?: Yes Primary care physician: Jordon Wood - Delio Diagnosis(es) (1) Abscess in epidural space of cervical spine Current Visit: Yes Status: Acute (2) Failed hardware Current Visit: Yes Status: Acute (3) Fall Current Visit: Yes Status: Acute (4) Neck fracture Current Visit: Yes Status: Acute (5) Diabetes mellitus Current Visit: No Status: Acute (6) Hyperglycemia Current Visit: No Status: Acute (7) Hypertension Current Visit: No Status: Acute (8) S/P cervical spinal fusion Current Visit: Yes Status: Acute (9) Obesity (BMI 30.0-34.9) Current Visit: Yes Status: Acute (10) Nicotine dependence Current Visit: Yes Status: Acute (11) COPD (chronic obstructive pulmonary disease) Current Visit: Yes Status: Acute Hospital Course: This is a pleasant 54-year-old male known to our service who presented with displacement of internal fixation and grafting from C6-T1 status post fall. Patient has a recent history of anterior cervical decompression and fusion at C5-6 and C7-T1 with corpectomy of C7 due to a burst fracture of C7 performed on 10/11/2019. He underwent further surgical intervention during this admission. He is status post revision anterior cervical decompression and fusion of C6-T1 extending up to C5 with revision corpectomy of C7 with strut cage extending from C6-T1 and posterior cervical fusion C5-T2 performed on 10/31/2019. Initially he had significant difficulty with pain control postoperatively and spent most of the days with difficulty with pain control or any significantly lethargic state. Medicine was able to change of his medications and he has been much better controlled. Patient has been much more awake, alert, and oriented with a past 5 days. He is answering questions appropriately. He is working with physical therapy. He was scheduled for discharge yesterday but began to experience some chest pain. Troponin was taken which showed slight elevation of troponin. Cardiology was consulted. He has undergone EKG and echocardiogram testing without significant findings. He's been seen by cardiology today who has cleared the patient for discharge to rehab today. Testing yesterday also showed evidence of an elevated d-dimer. CT of the chest was taking without evidence of pulmonary embolism. Patient is cleared for discharge by medicine. He is ready for discharge to [facility]. He does continue to have pain in the cervical spine but his pain is better controlled than it was initially postoperatively. Postoperatively he has had improvement of symptoms overall. He does continue to have weakness of the left upper extremity but is significantly improved following his surgical intervention performed on 10/11/2019. He has not had any neurological status change following his revision surgical intervention performed on 10/31/2019. He does continue to have some pain at the surgical sites. Patient has been seen by multiple medical providers during his admission including medicine and infectious disease. During surgical intervention he was found to have a cervical epidural abscess positive for Staphylococcus epidermidis. He has been on vancomycin per infectious disease. He has had a PICC line placed. Infectious disease will manage his PICC line antibiotic medication at discharge and has given a prescription for vancomycin. Condition on day of discharge stable. Patient will be discharged [facility]. Patient was cleared preoperatively for surgery by medicine. Patient currently denies any nausea, vomiting, fever, or chills. Patient is eating and voiding freely without difficulty. Patient may shower without dressings is intact over the anterior and posterior cervical spines. Patient must keep hard cervical collar intact at all times. Patient should avoid excessive neck flexion, extension, rotation, and lateral sidebending; no overhead lifting; no lifting greater than 10 pounds. A she was discussed with case management and we'll plan to obtain a new [place] hard cervical collar prior to discharge. An "Opiod Start Talking" Form has been signed and placed in the patient's chart. A prescription has been written for Percocet 10 mg/325 mg 1-2 tabs every 4 hours as needed for pain, dispensed #84. Patient should try to avoid anti- inflammatory medication over the next 5 weeks postoperatively. Patient is given prescription for Neurontin 300 mg, BID times a day, dispense #30. Patient is given a prescription for Cymbalta 30 mg 1 tab twice a day, dispense #30. Patient is also given prescriptions for Cyclobenzaprine, Flomax, Naprosyn, tramadol and Senokot by medicine. Patient should avoid excessive cervical flexion, extension, side bending, and rotation; avoid overhead lifting; no lifting greater than 10 pounds. Patient's past medical history includes diabetes type 2 mellitus with incision pump with uncontrolled hyperglycemia, essential hypertension, chronic low back pain, obesity, chronic nicotine dependence, and COPD. [place] may be removed from the posterior cervical surgical site on 11/18/2019. Physical Exam Cervical Fusion: Status post surgical day number 11 Patient is currently sitting upright at the bedside Patient is awake, alert, and oriented 3; he is answering questions appropriately Vital signs stable Good chest excursion with deep inspiration and expiration Anterior cervical incision site is clean, dry, and intact with glue intact Posterior cervical incision site is clean, dry, and intact with Tegaderm dressing intact Hard cervical collar remains intact Adequate but reduced range of motion of the cervical spine with adequate flexion, extension, and bilateral rotation Software Validation Technician strength, 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, interosseous strength, biceps strength, triceps strength, and shoulder strength positive sustained bilaterally Patient does have some chronic weakness and evidence of atrophy at the left upper extremity but has had significant improvement of active range of motion of the left upper extremity postoperatively Motor strength of the left upper extremity is 3-/5 including the triceps Motor strength in the left upper extremity is 3/5 including interosseous and thumb extension Motor strength of the right upper extremity is 3/5 including thumb extension Procedures: Status post revision anterior cervical decompression and fusion of C6-T1 extending up to C5 with revision corpectomy of C7 with strut cage extending from C6-T1 and posterior cervical fusion C5-T2 performed on 10/31/2019. Patient Condition at Discharge: Stable Plan - Discharge Summary Discharge Rx Participant: Yes New Discharge Prescriptions: New Cyclobenzaprine [Flexeril] 5 mg PO TID tab Tamsulosin [Flomax] 0.4 mg PO PC-SUPPER cap.er.24h Sennosides-Docusate Sodium [Senokot-S] 4 each PO DAILY tab DULoxetine HCL [Cymbalta] 30 mg PO BID #30 cap Gabapentin [Neurontin] 300 mg PO BID PRN #30 cap PRN Reason: Pain oxyCODONE-APAP 10-325MG [Percocet 10-325 mg] 1 - 2 tab PO Q4HR PRN #84 tab PRN Reason: Pain Insulin Detemir (Levemir) [Levemir] 60 unit SQ HS syr Vancomycin HCl in 5 % Dextrose [Vancomycin 1 Gram/250 ml-D5w] 1.5 gm IV BID #56 plast..bag traMADol HCL [Ultram] 50 mg PO Q4HR PRN 3 Days #18 tab PRN Reason: Pain Continue Fenofibrate Nanocrystallized [Fenofibrate] 145 mg PO DAILY Montelukast [Singulair] 10 mg PO HS Metoprolol Tartrate [Lopressor] 25 mg PO BID lamoTRIgine 200 mg PO BID amLODIPine [Norvasc] 5 mg PO DAILY Multivitamins, Thera [Multivitamin (formulary)] 1 tab PO DAILY Ergocalciferol [Vitamin D2 (DRISDOL)] 50,000 unit PO SA Albuterol Sulfate [Ventolin HFA] 2 puff INHALATION RT-Q4H PRN PRN Reason: Shortness Of Breath Diclofenac Sodium Gel [Voltaren Gel] 2 gm TOPICAL QID PRN PRN Reason: ARMS Dicyclomine [Bentyl] 20 mg PO Q6H PRN PRN Reason: CRAMPS DULoxetine HCL [Cymbalta] 30 mg PO BID traZODone HCL [Desyrel] 100 mg PO HS INSULIN ASPART (NovoLOG) [NovoLOG (formulary)] See Protocol SQ QID Pravastatin Sodium [Pravachol] 40 mg PO HS #30 tab Gabapentin [Neurontin] 300 mg PO BID oxyCODONE-APAP 10-325MG [Percocet 10-325 mg] 1 - 2 tab PO Q4H PRN PRN Reason: Pain Changed Insulin Glargine,Hum.rec.anlog [Basaglar Kwikpen U-100] 60 unit SQ HS #0 Famotidine 20 mg PO BID #0 QUEtiapine FUMARATE [SEROquel] 200 mg PO HS #0 Discontinued Melatonin 10 mg PO HS QUEtiapine [SEROquel] 100 mg PO BID@0800,1200 Baclofen [Lioresal] 10 mg PO TID PRN #21 tab PRN Reason: Muscle Spasm diazePAM [Valium] 5 mg PO QID PRN 7 Days #28 tab PRN Reason: Anxiety Discharge Medication List Fenofibrate Nanocrystallized [Fenofibrate] 145 mg PO DAILY 08/07/13 [History] Metoprolol Tartrate [Lopressor] 25 mg PO BID 08/07/13 [History] Montelukast [Singulair] 10 mg PO HS 08/07/13 [History] lamoTRIgine 200 mg PO BID 10/01/16 [History] Multivitamins, Thera [Multivitamin (formulary)] 1 tab PO DAILY 10/22/16 [History] amLODIPine [Norvasc] 5 mg PO DAILY 10/22/16 [History] Ergocalciferol [Vitamin D2 (DRISDOL)] 50,000 unit PO SA 10/31/18 [History] Albuterol Sulfate [Ventolin HFA] 2 puff INHALATION RT-Q4H PRN 09/02/19 [History] DULoxetine HCL [Cymbalta] 30 mg PO BID 09/02/19 [History] Diclofenac Sodium Gel [Voltaren Gel] 2 gm TOPICAL QID PRN 09/02/19 [History] Dicyclomine [Bentyl] 20 mg PO Q6H PRN 09/02/19 [History] INSULIN ASPART (NovoLOG) [NovoLOG (formulary)] See Protocol SQ QID 09/02/19 [History] traZODone HCL [Desyrel] 100 mg PO HS 09/02/19 [History] Pravastatin Sodium [Pravachol] 40 mg PO HS #30 tab 09/04/19 [Rx] Gabapentin [Neurontin] 300 mg PO BID 10/06/19 [History] oxyCODONE-APAP 10-325MG [Percocet 10-325 mg] 1 - 2 tab PO Q4H PRN 10/30/19 [History] Cyclobenzaprine [Flexeril] 5 mg PO TID tab 11/09/19 [Rx] Famotidine 20 mg PO BID #0 11/09/19 [Rx] Insulin Glargine,Hum.rec.anlog [Basaglar Kwikpen U-100] 60 unit SQ HS #0 11/09/19 [Rx] QUEtiapine FUMARATE [SEROquel] 200 mg PO HS #0 11/09/19 [Rx] Sennosides-Docusate Sodium [Senokot-S] 4 each PO DAILY tab 11/09/19 [Rx] Tamsulosin [Flomax] 0.4 mg PO PC-SUPPER cap.er.24h 11/09/19 [Rx] DULoxetine HCL [Cymbalta] 30 mg PO BID #30 cap 11/10/19 [Rx] Gabapentin [Neurontin] 300 mg PO BID PRN #30 cap 11/10/19 [Rx] Insulin Detemir (Levemir) [Levemir] 60 unit SQ HS syr 11/10/19 [Rx] Vancomycin HCl in 5 % Dextrose [Vancomycin 1 Gram/250 ml-D5w] 1.5 gm IV BID #56 plast..bag 11/10/19 [Rx] oxyCODONE-APAP 10-325MG [Percocet 10-325 mg] 1 - 2 tab PO Q4HR PRN #84 tab 11/10/19 [Rx] traMADol HCL [Ultram] 50 mg PO Q4HR PRN 3 Days #18 tab 11/11/19 [Rx] Follow up Appointment(s)/Referral(s): Rg Crisostomo PAC [PHYSICIAN HAND ALTERATIONS TAILOR] - 1 Week (Patient may follow-up with Rg Crisostomo PA-C or Dr. Jose Manuel Barger at [facility] in 1 week following discharge. ) Jordon Wood MD [Primary Care Provider] - 1-2 days Tatyana Reece MD [STAFF PHYSICIAN] - 2 Weeks Ambulatory/Diagnostic Orders: Basic Metabolic Panel [LAB.AMB] Location: None Selected Basic Metabolic Panel [LAB.AMB] Location: None Selected C Reactive Protein [LAB.AMB] Location: None Selected Complete Blood Count w/diff [LAB.AMB] Location: None Selected Erythrocyte Sedimentation Rate [LAB.AMB] Location: None Selected Activity/Diet/Wound Care/Special Instructions: 1. Patient must keep hard cervical collar intact at all times; [place] cervical collar will be delivered and fitted prior to discharge 2. Patient may shower with hard cervical collar intact and Tegaderm dressing intact 3. Keep incision sites clean, dry, and intact 4. Keep posterior candace intact till follow-up appointment 5. Avoid excessive active range of motion of the cervical spine 6. Avoid overhead lifting 7. No lifting greater than 10 pounds 8. Take medications as prescribe 9. [place] may be removed from the posterior surgical site on 11/18/2019 10. When the patient is lying flat his hard cervical collar may be removed to clean the padding of the collar Discharge Disposition: HOME SELF-CARE
[2019-11-11 15:18] VITALS: BP 144/78; PULSE 105; TEMP 98.1
--- NOTE | 2019-11-11 15:59 | PN ---
PROGRESS NOTE DATE OF SERVICE: 11/11/2019 REASON FOR FOLLOWUP: C7 epidural abscess. INTERVAL HISTORY: The patient is currently afebrile. The patient is breathing comfortably. Denies having any chest pain or shortness of breath or cough. No nausea, no vomiting. No abdominal pain or any diarrhea. PHYSICAL EXAMINATION: Blood pressure 134/85 with a pulse of 97, temperature 97.9. She is 90% on room air. General description is a middle-aged male lying in bed in no distress. RESPIRATORY SYSTEM: Unlabored breathing. Clear to auscultation anteriorly. HEART: S1, S2. Regular rate and rhythm. ABDOMEN: Soft. No tenderness. LABS: BUN of 17, creatinine 1.43. DIAGNOSTIC IMPRESSION AND PLAN: Patient with Staph epidermidis C7 epidural abscess, status post drainage and removal of hardware. The patient is covered with vancomycin; to continue for a total of 6 weeks with weekly monitoring of CBC and sedimentation rate and close outpatient followup. MMODL / IJN: [id number] /
[2019-11-11] MEDS ORDERED: VANCOMYCIN TROUGH DUE 1 EACH MISC MISCELLANE ONE (21:00)
== END 2019-11-11 16:05 | disposition home or self-care (01) | DRG 453 ==
LOC: EC 18:18 → 3SCARD 21:55 → 4SSUR 11-04 22:05
PROVIDERS: ADMIT Orthopaedic Surgery Orthopaedic Surgery of the Spine; ATTEND Orthopaedic Surgery Orthopaedic Surgery of the Spine
PROC: 0RG40K1 Fusion of Cervicothoracic Vertebral Joint with Nonautologous Tissue Substitute, Posterior Approach, Posterior Column, Open Approach (ICD-10-PCS; principal; 2019-10-31 11:00)
PROC: 0PB30ZZ Excision of Cervical Vertebra, Open Approach (ICD-10-PCS; principal; 2019-10-31 11:00)
PROC: 0RP40AZ Removal of Interbody Fusion Device from Cervicothoracic Vertebral Joint, Open Approach (ICD-10-PCS; principal; 2019-10-31 11:00)
PROC: 0RG20AJ Fusion of 2 or more Cervical Vertebral Joints with Interbody Fusion Device, Posterior Approach, Anterior Column, Open Approach (ICD-10-PCS; principal; 2019-10-31 11:00)
PROC: 0RT30ZZ Resection of Cervical Vertebral Disc, Open Approach (ICD-10-PCS; principal; 2019-10-31 11:00)
PROC: 0RG40AJ Fusion of Cervicothoracic Vertebral Joint with Interbody Fusion Device, Posterior Approach, Anterior Column, Open Approach (ICD-10-PCS; principal; 2019-10-31 11:00)
PROC: 0RG20K1 Fusion of 2 or more Cervical Vertebral Joints with Nonautologous Tissue Substitute, Posterior Approach, Posterior Column, Open Approach (ICD-10-PCS; principal; 2019-10-31 11:00)
PROC: 0RG60K1 Fusion of Thoracic Vertebral Joint with Nonautologous Tissue Substitute, Posterior Approach, Posterior Column, Open Approach (ICD-10-PCS; principal; 2019-10-31 11:00)
PROC: 02HV33Z Insertion of Infusion Device into Superior Vena Cava, Percutaneous Approach (ICD-10-PCS; 2019-11-04)
DX: T84.226A Displacement of internal fixation device of vertebrae, initial encounter (principal); G92 Toxic encephalopathy; S12.690A Other displaced fracture of seventh cervical vertebra, initial encounter for closed fracture; M50.023 Cervical disc disorder at C6-C7 level with myelopathy; E22.2 Syndrome of inappropriate secretion of antidiuretic hormone; N17.9 Acute kidney failure, unspecified; J90 Pleural effusion, not elsewhere classified; M47.12 Other spondylosis with myelopathy, cervical region; S82.101A Unspecified fracture of upper end of right tibia, initial encounter for closed fracture; K86.1 Other chronic pancreatitis; J98.11 Atelectasis; Z20.828 Contact with and (suspected) exposure to other viral communicable diseases; E11.649 Type 2 diabetes mellitus with hypoglycemia without coma; T84.63XA Infection and inflammatory reaction due to internal fixation device of spine, initial encounter; F31.9 Bipolar disorder, unspecified; Z79.4 Long term (current) use of insulin; F10.21 Alcohol dependence, in remission; E11.65 Type 2 diabetes mellitus with hyperglycemia; J44.9 Chronic obstructive pulmonary disease, unspecified; E66.9 Obesity, unspecified; E86.0 Dehydration; G89.29 Other chronic pain; R00.0 Tachycardia, unspecified; M19.90 Unspecified osteoarthritis, unspecified site; K21.9 Gastro-esophageal reflux disease without esophagitis; I10 Essential (primary) hypertension; G47.33 Obstructive sleep apnea (adult) (pediatric); F41.9 Anxiety disorder, unspecified; F17.210 Nicotine dependence, cigarettes, uncomplicated; M48.02 Spinal stenosis, cervical region; M40.202 Unspecified kyphosis, cervical region; E78.5 Hyperlipidemia, unspecified; R59.9 Enlarged lymph nodes, unspecified; M47.22 Other spondylosis with radiculopathy, cervical region; T50.8X5A Adverse effect of diagnostic agents, initial encounter; D86.9 Sarcoidosis, unspecified; T50.915A Adverse effect of multiple unspecified drugs, medicaments and biological substances, initial encounter; R33.9 Retention of urine, unspecified; R79.89 Other specified abnormal findings of blood chemistry; W01.0XXA Fall on same level from slipping, tripping and stumbling without subsequent striking against object, initial encounter; Z71.6 Tobacco abuse counseling; Z71.3 Dietary counseling and surveillance; Z68.33 Body mass index [BMI] 33.0-33.9, adult; Z79.899 Other long term (current) drug therapy; Z87.19 Personal history of other diseases of the digestive system; Z96.89 Presence of other specified functional implants; Z86.14 Personal history of Methicillin resistant Staphylococcus aureus infection; Z90.49 Acquired absence of other specified parts of digestive tract; Z98.1 Arthrodesis status; Z88.8 Allergy status to other drugs, medicaments and biological substances; Z82.49 Family history of ischemic heart disease and other diseases of the circulatory system; Z96.41 Presence of insulin pump (external) (internal)
CPT/HCPCS: 36415; 36573; 70450; 71045; 71275; 72020; 72040; 72125; 80048; 80053; 80202; 81003; 82565; 83036; 84484; 85025; 85027; 85379; 85610; 85652; 85730; 86140; 87040; 87070; 87075; 87077; 87186; 87205; 93005; 93306; 94640; 96361; 96374; 96375; 96376; 99285

== ENCOUNTER 2019-12-09 12:17 | Inpatient (IN) | payer MEDICARE, OTHER ==
[2019-12-09] MEDS ORDERED: SODIUM CHLORIDE 0.9% 1,000 ML IV STA ×2 (12:25→14:15)
--- NOTE | 2019-12-09 12:37 | ED ---
General Adult HPI - General Stated complaint: Low O2, altered mental status Time Seen by Provider: 12/09/19 12:18 Source: patient, EMS, RN notes reviewed Mode of arrival: EMS Limitations: altered mental status - History of Present Illness Initial comments: Patient is a pleasant 54-year-old male presenting to the emergency Department with reported altered mental status. Patient reportedly had a oxygen saturation of 88. Patient's blood sugar 66. EMS did provide half amp of glucose with improvement of symptoms. Patient admits that he feels dry during questioning. Patient is unclear if he has been eating and drinking well. Patient states he does have a lot of neck problems and has been seen for this and is in a collar or this. Patient is also reportedly and vancomycin through a PICC line for this. No fevers. Patient denies any dyspnea. Patient denies confusion or weakness. - Related Data Home Medications Medication Instructions Recorded Confirmed Fenofibrate Nanocrystallized 145 mg PO DAILY 08/07/13 10/30/19 [Fenofibrate] Metoprolol Tartrate [Lopressor] 25 mg PO BID 08/07/13 10/30/19 Montelukast [Singulair] 10 mg PO HS 08/07/13 10/30/19 lamoTRIgine 200 mg PO BID 10/01/16 10/30/19 Multivitamins, Thera [Multivitamin 1 tab PO DAILY 10/22/16 10/30/19 (formulary)] amLODIPine [Norvasc] 5 mg PO DAILY 10/22/16 10/30/19 Ergocalciferol [Vitamin D2 50,000 unit PO SA 10/31/18 10/30/19 (DRISDOL)] Albuterol Sulfate [Ventolin HFA] 2 puff INHALATION RT-Q4H PRN 09/02/19 10/30/19 DULoxetine HCL [Cymbalta] 30 mg PO BID 09/02/19 10/30/19 Diclofenac Sodium Gel [Voltaren 2 gm TOPICAL QID PRN 09/02/19 10/30/19 Gel] Dicyclomine [Bentyl] 20 mg PO Q6H PRN 09/02/19 10/30/19 INSULIN ASPART (NovoLOG) [NovoLOG See Protocol SQ QID 09/02/19 10/30/19 (formulary)] traZODone HCL [Desyrel] 100 mg PO HS 09/02/19 10/30/19 Gabapentin [Neurontin] 300 mg PO BID 10/06/19 10/30/19 oxyCODONE-APAP 10-325MG [Percocet 1 - 2 tab PO Q4H PRN 10/30/19 10/30/19 10-325 mg] Previous Rx's Medication Instructions Recorded Pravastatin Sodium [Pravachol] 40 mg PO HS #30 tab 09/04/19 Cyclobenzaprine [Flexeril] 5 mg PO TID tab 11/09/19 Famotidine 20 mg PO BID #0 11/09/19 Insulin Glargine,Hum.rec.anlog 60 unit SQ HS #0 11/09/19 [Basaglar Kwikpen U-100] QUEtiapine FUMARATE [SEROquel] 200 mg PO HS #0 11/09/19 Sennosides-Docusate Sodium 4 each PO DAILY tab 11/09/19 [Senokot-S] Tamsulosin [Flomax] 0.4 mg PO PC-SUPPER cap.er.24h 11/09/19 DULoxetine HCL [Cymbalta] 30 mg PO BID #30 cap 11/10/19 Gabapentin [Neurontin] 300 mg PO BID PRN #30 cap 11/10/19 Insulin Detemir (Levemir) [Levemir] 60 unit SQ HS syr 11/10/19 Vancomycin HCl in 5 % Dextrose 1.5 gm IV BID #56 plast..bag 11/10/19 [Vancomycin 1 Gram/250 ml-D5w] oxyCODONE-APAP 10-325MG [Percocet 1 - 2 tab PO Q4HR PRN #84 tab 11/10/19 10-325 mg] traMADol HCL [Ultram] 50 mg PO Q4HR PRN 3 Days #18 tab 11/11/19 Allergies Allergy/AdvReac Type Severity Reaction Status Date / Time haloperidol [From Haldol] AdvReac Hallucinati Verified 12/09/19 14:13 ons haloperidol lactate AdvReac Hallucinati Verified 12/09/19 14:13 [From Haldol] ons Review of Systems ROS Statement: Those systems with pertinent positive or pertinent negative responses have been documented in the HPI. ROS Other: All systems not noted in ROS Statement are negative. Constitutional: Denies: fever Eyes: Denies: eye pain ENT: Denies: ear pain Respiratory: Denies: cough, dyspnea Cardiovascular: Denies: chest pain Endocrine: Reports: fatigue Gastrointestinal: Denies: abdominal pain Genitourinary: Denies: dysuria Skin: Denies: rash Neurological: Reports: as per HPI. 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, pancreatitis, recent abcess in neck being tx with iv vanco History of Any Multi-Drug Resistant Organisms: MRSA Date of last positivie culture/infection: 11/03/2008 MDRO Source:: spine Past Surgical History: Cholecystectomy Additional Past Surgical History / Comment(s): spinal fusion at L4 and L5, pancreatic surgery for pseudocyst w/stent Past Anesthesia/Blood Transfusion Reactions: No Reported Reaction Past Psychological History: Anxiety, Bipolar, Depression Smoking Status: Current every day smoker Past Alcohol Use History: None Reported Past Drug Use History: None Reported - Past Family History Mother Family Medical History: Hypertension Additional Family Medical History / Comment(s): Pt states mother had no health problems. Father Family Medical History: No Reported History Additional Family Medical History / Comment(s): pt stated his father is - had no medicals problems and of natural causes. General Exam Limitations: altered mental status General appearance: alert, in no apparent distress, other (Patient is very slow to respond. Difficulty answering questions. Does follow commands when reminded.) Head exam: Present: normocephalic Eye exam: Present: normal appearance, PERRL, EOMI ENT exam: Present: mucous membranes dry Neck exam: Present: normal inspection, other (Color is in place) Respiratory exam: Present: normal lung sounds bilaterally Cardiovascular Exam: Present: regular rate, normal rhythm GI/Abdominal exam: Present: soft. Absent: distended, tenderness Extremities exam: Present: normal inspection, full ROM. Absent: tenderness, calf tenderness Back exam: Present: normal inspection. Absent: vertebral tenderness Neurological exam: Present: alert, CN II-XII intact. Absent: motor sensory deficit Expanded Neurological exam: Present: protecting the airway Patient oriented to: Present: person. Absent: place, time Motor strength exam: RUE: 5, LUE: 5, RLE: 5, LLE: 5 Eye Response: (4) open spontaneously Motor Response: (6) obeys commands Verbal Response: (4) confused conversation Psychiatric exam: Present: normal affect, normal mood Skin exam: Present: normal color Course Vital Signs 12/09/19 12/09/19 12:21 13:29 Temperature 99 F Pulse Rate 96 97 Respiratory 18 20 Rate Blood Pressure 93/61 100/62 O2 Sat by Pulse 94 L 94 L Oximetry - Reevaluation(s) Reevaluation #1: 12/09/19 14:16 Patient does meet sepsis criteria diagnosed at 1415. Blood culture and lactic acid and IV antibiotics have all been ordered. IV fluids have been ordered at 1:30. EKG Findings - EKG Comments: EKG Findings:: Normal sinus rhythm and 96. HI 162. QRS 108. QT 352. QTC 444. Normal axis. Normal QRS. No acute ST change. Medical Decision Making - Medical Decision Making Patient reevaluated and updated. Dr. Mendoza has been paged for admission covering for Note. There is mild to moderate suspicion for possible coronavirus and testing has been ordered. - Lab Data Result diagrams: 12/09/19 12:36 12/09/19 12:36 Lab Results 12/09/19 12/09/19 12/09/19 Range/Units 12:30 12:36 12:36 WBC 14.7 H (3.8-10.6) k/uL RBC 3.04 L (4.30-5.90) m/uL Hgb 8.5 L (13.0-17.5) gm/dL Hct 26.1 L (39.0-53.0) % MCV 86.0 (80.0-100.0) fL MCH 28.1 (25.0-35.0) pg MCHC 32.7 (31.0-37.0) g/dL RDW 13.9 (11.5-15.5) % Plt Count 328 (150-450) k/uL Neutrophils % 84 % Lymphocytes % 8 % Monocytes % 5 % Eosinophils % 2 % Basophils % 1 % Neutrophils # 12.4 H (1.3-7.7) k/uL Lymphocytes # 1.2 (1.0-4.8) k/uL Monocytes # 0.7 (0-1.0) k/uL Eosinophils # 0.3 (0-0.7) k/uL Basophils # 0.1 (0-0.2) k/uL Hypochromasia Slight PT 12.5 H (9.0-12.0) sec INR 1.2 H (<1.2) APTT 31.9 H (22.0-30.0) sec Sodium (137-145) mmol/L Potassium (3.5-5.1) mmol/L Chloride (98-107) mmol/L Carbon Dioxide (22-30) mmol/L Anion Gap mmol/L BUN (9-20) mg/dL Creatinine (0.66-1.25) mg/dL Est GFR (CKD-EPI)AfAm (>60 ml/min/1.73 sqM) Est GFR (CKD-EPI)NonAf (>60 ml/min/1.73 sqM) Glucose (74-99) mg/dL POC Glucose (mg/dL) 102 H (75-99) mg/dL POC Glu [employer] ID Wren, Ann Plasma Lactic Acid Jerrell (0.7-2.0) mmol/L Calcium (8.4-10.2) mg/dL Total Bilirubin (0.2-1.3) mg/dL AST (17-59) U/L ALT (4-49) U/L Alkaline Phosphatase (38-126) U/L Troponin I (0.000-0.034) ng/mL NT-Pro-B Natriuret Pep pg/mL Total Protein (6.3-8.2) g/dL Albumin (3.5-5.0) g/dL Urine Color Urine Appearance (Clear) Urine pH (5.0-8.0) Ur Specific [place] (1.001-1.035) Urine Protein (Negative) Urine Glucose (UA) (Negative) Urine Ketones (Negative) Urine Blood (Negative) Urine Nitrite (Negative) Urine Bilirubin (Negative) Urine Urobilinogen (<2.0) mg/dL Ur Leukocyte Esterase (Negative) 12/09/19 12/09/19 12/09/19 Range/Units 12:36 12:36 12:36 WBC (3.8-10.6) k/uL RBC (4.30-5.90) m/uL Hgb (13.0-17.5) gm/dL Hct (39.0-53.0) % MCV (80.0-100.0) fL MCH (25.0-35.0) pg MCHC (31.0-37.0) g/dL RDW (11.5-15.5) % Plt Count (150-450) k/uL Neutrophils % % Lymphocytes % % Monocytes % % Eosinophils % % Basophils % % Neutrophils # (1.3-7.7) k/uL Lymphocytes # (1.0-4.8) k/uL Monocytes # (0-1.0) k/uL Eosinophils # (0-0.7) k/uL Basophils # (0-0.2) k/uL Hypochromasia PT (9.0-12.0) sec INR (<1.2) APTT (22.0-30.0) sec Sodium 134 L (137-145) mmol/L Potassium 4.2 (3.5-5.1) mmol/L Chloride 97 L (98-107) mmol/L Carbon Dioxide 31 H (22-30) mmol/L Anion Gap 6 mmol/L BUN 26 H (9-20) mg/dL Creatinine 1.56 H (0.66-1.25) mg/dL Est GFR (CKD-EPI)AfAm 58 (>60 ml/min/1.73 sqM) Est GFR (CKD-EPI)NonAf 50 (>60 ml/min/1.73 sqM) Glucose 125 H (74-99) mg/dL POC Glucose (mg/dL) (75-99) mg/dL POC Glu [employer] ID Plasma Lactic Acid Jerrell 0.8 (0.7-2.0) mmol/L Calcium 10.1 (8.4-10.2) mg/dL Total Bilirubin 0.4 (0.2-1.3) mg/dL AST 53 (17-59) U/L ALT 12 (4-49) U/L Alkaline Phosphatase 126 (38-126) U/L Troponin I 1.650 H* (0.000-0.034) ng/mL NT-Pro-B Natriuret Pep pg/mL Total Protein 5.6 L (6.3-8.2) g/dL Albumin 2.9 L (3.5-5.0) g/dL Urine Color Urine Appearance (Clear) Urine pH (5.0-8.0) Ur Specific [place] (1.001-1.035) Urine Protein (Negative) Urine Glucose (UA) (Negative) Urine Ketones (Negative) Urine Blood (Negative) Urine Nitrite (Negative) Urine Bilirubin (Negative) Urine Urobilinogen (<2.0) mg/dL Ur Leukocyte Esterase (Negative) 12/09/19 12/09/19 12/09/19 Range/Units 12:36 13:27 13:53 WBC (3.8-10.6) k/uL RBC (4.30-5.90) m/uL Hgb (13.0-17.5) gm/dL Hct (39.0-53.0) % MCV (80.0-100.0) fL MCH (25.0-35.0) pg MCHC (31.0-37.0) g/dL RDW (11.5-15.5) % Plt Count (150-450) k/uL Neutrophils % % Lymphocytes % % Monocytes % % Eosinophils % % Basophils % % Neutrophils # (1.3-7.7) k/uL Lymphocytes # (1.0-4.8) k/uL Monocytes # (0-1.0) k/uL Eosinophils # (0-0.7) k/uL Basophils # (0-0.2) k/uL Hypochromasia PT (9.0-12.0) sec INR (<1.2) APTT (22.0-30.0) sec Sodium (137-145) mmol/L Potassium (3.5-5.1) mmol/L Chloride (98-107) mmol/L Carbon Dioxide (22-30) mmol/L Anion Gap mmol/L BUN (9-20) mg/dL Creatinine (0.66-1.25) mg/dL Est GFR (CKD-EPI)AfAm (>60 ml/min/1.73 sqM) Est GFR (CKD-EPI)NonAf (>60 ml/min/1.73 sqM) Glucose (74-99) mg/dL POC Glucose (mg/dL) 78 (75-99) mg/dL POC Glu Supervisor [employer] ID Wren, Ann Plasma Lactic Acid Jerrell (0.7-2.0) mmol/L Calcium (8.4-10.2) mg/dL Total Bilirubin (0.2-1.3) mg/dL AST (17-59) U/L ALT (4-49) U/L Alkaline Phosphatase (38-126) U/L Troponin I (0.000-0.034) ng/mL NT-Pro-B Natriuret Pep 1200 pg/mL Total Protein (6.3-8.2) g/dL Albumin (3.5-5.0) g/dL Urine Color Yellow Urine Appearance Clear (Clear) Urine pH 5.0 (5.0-8.0) Ur Specific [place] 1.022 (1.001-1.035) Urine Protein Negative (Negative) Urine Glucose (UA) Negative (Negative) Urine Ketones Negative (Negative) Urine Blood Negative (Negative) Urine Nitrite Negative (Negative) Urine Bilirubin Negative (Negative) Urine Urobilinogen <2.0 (<2.0) mg/dL Ur Leukocyte Esterase Negative (Negative) 12/09/19 Range/Units 14:03 WBC (3.8-10.6) k/uL RBC (4.30-5.90) m/uL Hgb (13.0-17.5) gm/dL Hct (39.0-53.0) % MCV (80.0-100.0) fL MCH (25.0-35.0) pg MCHC (31.0-37.0) g/dL RDW (11.5-15.5) % Plt Count (150-450) k/uL Neutrophils % % Lymphocytes % % Monocytes % % Eosinophils % % Basophils % % Neutrophils # (1.3-7.7) k/uL Lymphocytes # (1.0-4.8) k/uL Monocytes # (0-1.0) k/uL Eosinophils # (0-0.7) k/uL Basophils # (0-0.2) k/uL Hypochromasia PT (9.0-12.0) sec INR (<1.2) APTT (22.0-30.0) sec Sodium (137-145) mmol/L Potassium (3.5-5.1) mmol/L Chloride (98-107) mmol/L Carbon Dioxide (22-30) mmol/L Anion Gap mmol/L BUN (9-20) mg/dL Creatinine (0.66-1.25) mg/dL Est GFR (CKD-EPI)AfAm (>60 ml/min/1.73 sqM) Est GFR (CKD-EPI)NonAf (>60 ml/min/1.73 sqM) Glucose (74-99) mg/dL POC Glucose (mg/dL) 66 L (75-99) mg/dL POC Glu Supervisor [employer] ID Ann Wren Plasma Lactic Acid Jerrell (0.7-2.0) mmol/L Calcium (8.4-10.2) mg/dL Total Bilirubin (0.2-1.3) mg/dL AST (17-59) U/L ALT (4-49) U/L Alkaline Phosphatase (38-126) U/L Troponin I (0.000-0.034) ng/mL NT-Pro-B Natriuret Pep pg/mL Total Protein (6.3-8.2) g/dL Albumin (3.5-5.0) g/dL Urine Color Urine Appearance (Clear) Urine pH (5.0-8.0) Ur Specific [place] (1.001-1.035) Urine Protein (Negative) Urine Glucose (UA) (Negative) Urine Ketones (Negative) Urine Blood (Negative) Urine Nitrite (Negative) Urine Bilirubin (Negative) Urine Urobilinogen (<2.0) mg/dL Ur Leukocyte Esterase (Negative) - Radiology Data Radiology results: report reviewed (Computed tomography scan the brain shows no acute process), image reviewed (Chest x-ray shows patchy hilar and basilar infiltrates, correlate for underlying pneumonia.) Critical Care Time Critical Care Time: Yes Total Critical Care Time: 33 Disposition Clinical Impression: Pneumonia, Sepsis Disposition: ADMITTED IP TO THIS HOSP Condition: Stable Is patient prescribed a controlled substance at d/c from ED?: No Referrals: Jordon Wood MD [Primary Care Provider] - 1-2 days Decision Time: 14:17
[2019-12-09 12:42] LABS: Glucose,Whole Blood 102 mg/dL (75-99)
[2019-12-09 12:56] LABS: INR 1.2 (<1.2); Partial Thromboplastin Time 31.9 sec (22.0-30.0); Prothrombin Time 12.5 sec (9.0-12.0)
[2019-12-09 12:59] LABS: Basophils # (A) 0.1 k/uL (0-0.2); Basophils % (A) 1 %; Eosinophils # (A) 0.3 k/uL (0-0.7); Eosinophils % (A) 2 %; HCT 26.1 % (39.0-53.0); HGB 8.5 gm/dL (13.0-17.5); Hypochromasia Slight; Lymphocytes # (A) 1.2 k/uL (1.0-4.8); Lymphocytes % (A) 8 %; MCH 28.1 pg (25.0-35.0); MCHC 32.7 g/dL (31.0-37.0); Mean Platelet Volume 6.6; Monocytes # (A) 0.7 k/uL (0-1.0); Monocytes % (A) 5 %; Neutrophils # (A) 12.4 k/uL (1.3-7.7); Neutrophils % (A) 84 %; Platelet Count 328 k/uL (150-450); RBC 3.04 m/uL (4.30-5.90); RDW 13.9 % (11.5-15.5); WBC 14.7 k/uL (3.8-10.6)
[2019-12-09 13:01] LABS: Albumin 2.9 g/dL (3.5-5.0); Calcium 10.1 mg/dL (8.4-10.2); Potassium 4.2 mmol/L (3.5-5.1); Total Bilirubin 0.4 mg/dL (0.2-1.3); Total Protein 5.6 g/dL (6.3-8.2)
--- NOTE | 2019-12-09 13:21 | XR ---
EXAMINATION TYPE: XR chest 2V DATE OF EXAM: 12/09/2019 COMPARISON: 10/30/2019 HISTORY: Shortness of breath TECHNIQUE: Frontal and lateral views of the chest are obtained. FINDINGS: Scattered senescent parenchymal changes noted. Hyperinflation compatible with COPD. Patchy perihilar and basilar infiltrates noted.Correlate for underlying pneumonia. Heart size is stable. Mediastinal structures are stable and grossly unremarkable. No evidence for hilar prominence. Degenerative changes dorsal spine. IMPRESSION: 1. Patchy perihilar and basilar infiltrates noted.Correlate for underlying pneumonia.
--- NOTE | 2019-12-09 13:23 | CT ---
EXAMINATION TYPE: CT brain wo con DATE OF EXAM: 12/09/2019 COMPARISON: CT brain 10/30/2019 HISTORY: AMS CT DLP: 1158.4 mGycm Automated exposure control for dose reduction was used. Helical imaging through the brain FINDINGS: Right frontal scalp in the superolateral location shows a punctate metallic density, possible calcifi cation or foreign body. There are some cerebral vascular calcifications. No hemorrhage or hydrocephal us. Brain density is maintained. Calvarium is intact. IMPRESSION: STABLE EXAM, NO ACUTE ABNORMALITY, CONSIDER BRAIN MRI INDICATED FOR BETTER EVALUATION
[2019-12-09 13:38] LABS: Glucose,Whole Blood 78 mg/dL (75-99)
[2019-12-09 14:11] LABS: Appearance,Urine Clear (Clear); Bilirubin,Urine Negative (Negative); Blood,Urine Negative (Negative); Color,Urine Yellow; Glucose,Urine (UA) Negative (Negative); Ketones,Urine Negative (Negative); Leukocyte Esterase,Urine Negative (Negative); Nitrite,Urine Negative (Negative); Protein,Urine Negative (Negative); Specific Gravity,Urine 1.022 (1.001-1.035); Urobilinogen,Urine <2.0 mg/dL (<2.0)
[2019-12-09] MEDS ORDERED: AZITHROMYCIN 500 MG in SODIUM CHLORIDE 0.9% 250 ML IVPB STA (14:13)
[2019-12-09] MEDS ORDERED: PNEUMONIA PROTOCOL UTILIZED 1 EACH MISC PO PRN (14:13)
[2019-12-09] MEDS ORDERED: PIPERACILLIN-TAZOBACTAM 3.375 GM in SODIUM CHLORIDE 0.9% 100 ML IVPB STA (14:13)
[2019-12-09 14:15] LABS: Glucose,Whole Blood 66 mg/dL (75-99)
[2019-12-09 14:20] LABS: Glucose,Whole Blood 109 mg/dL (75-99)
[2019-12-09 15:15] LABS: Glucose,Whole Blood 86 mg/dL (75-99)
[2019-12-09] MEDS ORDERED: MAGNESIUM HYDROXIDE 2,400 MG/10 ML CUP PO PRN (16:33)
[2019-12-09] MEDS ORDERED: GABAPENTIN 300 MG CAP PO PRN (16:33)
[2019-12-09] MEDS ORDERED: MAG HYDROX/AL HYDROX/SIMETH 30 ML CUP PO PRN (16:33)
[2019-12-09 17:07] LABS: Glucose,Whole Blood 75 mg/dL (75-99)
[2019-12-09 17:07] LABS: ABG Base Excess 6.6 mmol/L; ABG HCO3 32 mmol/L (21-25); ABG PCO2 55 mmHg (35-45); ABG PH 7.37 (7.35-7.45); ABG PO2 63 mmHg (83-108); ABG TCO2 34 mmol/L (19-24); Allen Test Performed? Yes
[2019-12-09] MEDS: SODIUM CHLORIDE 0.9% 1,000 ML IV SCH ×2 (17:08→22:16)
[2019-12-09] MEDS: DEXTROSE 5%-0.9% NACL 1,000 ML IV SCH (17:24)
[2019-12-09] MEDS: INSULIN ASPART (NovoLOG) 100 UNIT/ML VIAL SQ SCH ×2 (17:24→21:14)
--- NOTE | 2019-12-09 17:28 | P.CNPUL ---
History of Present Illness Consult date: 12/09/19 Requesting physician: Domenic Ryan Reason for consult: hypoxemia, pneumonia, abnormal CXR/CT, other Chief complaint: Altered mental status History of present illness: 54-year-old white male patient of Dr. Wood with past medical history of hypertension, diabetes mellitus, obstructive sleep apnea on BiPAP, chronic back pain, chronic smoker, history of anxiety, depression, who was recently hos pitalized from 10/30/2019 through 11/11/2019 when he came in for evaluation of severe shoulder pain after she sustained a fall at home a few weeks following his cervical spine surgery on 10/11/2019 for traumatic T7 burst fracture. Computed tomography scan of the cervical spine revealed traumatic displacement of anterior cervical internal fixation from C6 to T1, and on 10/31/2019 patient underwent anterior cervical decompression and fusion of C6 through T1 extending up to C5 with revision corpectomy C7 with short cage extending from C6 through T1 and posterior cervical fusion of C5 through T2. Patient had an episode of chest pain during the last admission, was evaluated by cardiology, EKG and echocardiogram without significant findings, d-dimer was elevated, CTA chest was without evidence of pulmonary embolism. Patient was discharged to [facility]. Of note during his surgery. Patient was found to have a cervical epidural abscess positive for Staphylococcus epidermidis and he was discharged with a PICC line in place for vancomycin infusions for 6 weeks. On 12/09/2019 patient was brought into the emergency department for evaluation of altered mental status, and hypoxemia with O2 saturations of 88%, blood sugar was 66 patient was given half amp of glucose with improvement of his symptoms. His oral membranes are extremely dry, patient is unclear whether he has been eating or drinking well. He seems somewhat confused, he is currently on 5 L of oxygen, he has removed his oxygen, and he is desaturating into the low 80s, seems lethargic. Denies any fevers, denies any dyspnea. Chest x-ray showed patchy perihilar and basilar infiltrates with a concern for pneumonia. Brain CT showed no acute abnormality. EKG showed normal sinus rhythm. Labs showed a white blood cell count of 14.7, hemoglobin of 8.5, INR is 1.2, sodium is 134, potassium is 4.2, chloride is 97, CO2 31, BUN is 26, creatinine is 1.56, lactic acid 0.8, troponin is 1.650, proBNP is 1200, urinalysis without sign of infection. Current antibiotic coverage is in the form of azithromycin, Zosyn, and we resumed his vancomycin for recent cervical spine abscess. COVID 19 PCR was sent, pending at this time. Patient is afebrile, he is lethargic, but breathing is nonlabored, he is a poor historian, he is confused. Review of Systems All systems: negative Constitutional: Reports lethargy, Denies chills, Denies fever Eyes: denies blurred vision, denies pain Ears, nose, mouth and throat: Denies headache, Denies sore throat Cardiovascular: Denies chest pain, Denies shortness of breath Respiratory: Denies cough Gastrointestinal: Denies abdominal pain, Denies diarrhea, Denies nausea, Denies vomiting Musculoskeletal: Denies myalgias Integumentary: Denies pruritus, Denies rash Neurological: Reports change in mentation, Reports confusion, Denies numbness, Denies weakness Psychiatric: Denies anxiety, Denies depression Endocrine: Denies fatigue, Denies weight change Past Medical History Past Medical History: Asthma, COPD, Diabetes Mellitus, GERD/Reflux, Hypertension, Musculoskeletal Disorder, Osteoarthritis (OA), Pneumonia, Sleep Apnea/CPAP/BIPAP Additional Past Medical History / Comment(s): Pt recently admitted to [facility] on 10/30/19 with abscess in epidural space cervical spine/failed hardware with surgery/fall with cervical fracture. 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, R scapular fracture, per past meical record-thoracic lesion/pulmonary nodules but pt not sure about this, chronic pancreatitis/pancreatic pseudocyst, hepatic steatosis, past ETOH abuse, History of Any Multi-Drug Resistant Organisms: MRSA Date of last positivie culture/infection: 11/03/2008 MDRO Source:: spine Past Surgical History: Back Surgery, Cholecystectomy, Orthopedic Surgery, Tonsillectomy Additional Past Surgical History / Comment(s): Cervical surgery with recent revision anterior cervical corpectomy C7/removal of hardware and I&D, spinal fusion at L4 and L5, pancreatic surgery for pseudocyst w/stent-stent since removed, EGD Past Anesthesia/Blood Transfusion Reactions: No Reported Reaction Past Psychological History: Anxiety, Bipolar, Depression Additional Psychological History / Comment(s): Pt currently resides at [facility] on the [place]. He is assisted by staff to wheelchair. He feeds himself. Smoking Status: Current every day smoker Past Alcohol Use History: None Reported Additional Past Alcohol Use History / Comment(s): Pt started smoking in 1988 and was a half ppd smoker. Past hx of alcohol abuse, pt states he has not drank in 6 yrs. Past Drug Use History: Opiates Additional Drug Use History / Comment(s): Pt has hx of opiate abuse- quit 4 y ears ago . - Past Family History Mother Family Medical History: Hypertension Additional Family Medical History / Comment(s): Pt states mother had no health problems. Father Family Medical History: No Reported History Additional Family Medical History / Comment(s): pt stated his father is - had no medicals problems and of natural causes. Medications and Allergies Home Medications Medication Instructions Recorded Confirmed Type Fenofibrate Nanocrystallized 145 mg PO DAILY@89908/07/13 12/09/19 History [Fenofibrate] Metoprolol Tartrate [Lopressor] 25 mg PO BID@899,209908/07/13 12/09/19 History Montelukast [Singulair] 10 mg PO HS@209908/07/13 12/09/19 History lamoTRIgine 200 mg PO BID@899,209910/01/16 12/09/19 History Multivitamins, Thera [Multivitamin 1 tab PO DAILY@0910/22/16 12/09/19 History (formulary)] amLODIPine [Norvasc] 5 mg PO DAILY@89910/22/16 12/09/19 History Ergocalciferol [Vitamin D2 50,000 unit PO SA 10/31/18 12/09/19 History (DRISDOL)] Albuterol Sulfate [Ventolin HFA] 2 puff INHALATION RT-Q4H PRN 09/02/19 12/09/19 History DULoxetine HCL [Cymbalta] 30 mg PO BID@0900,209909/02/19 12/09/19 History Diclofenac Sodium Gel [Voltaren 2 gm TOPICAL QID PRN 09/02/19 12/09/19 History Gel] Dicyclomine [Bentyl] 20 mg PO Q6H PRN 09/02/19 12/09/19 History INSULIN ASPART (NovoLOG) [NovoLOG See Protocol SQ ACHS 09/02/19 12/09/19 History (formulary)] traZODone HCL [Desyrel] 100 mg PO HS@209909/02/19 12/09/19 History Gabapentin [Neurontin] 300 mg PO BID PRN 10/06/19 12/09/19 History oxyCODONE-APAP 10-325MG [Percocet 1 - 2 tab PO Q4H PRN 10/30/19 12/09/19 History 10-325 mg] traMADol HCL [Ultram] 50 mg PO Q4HR PRN 3 Days #18 tab 11/11/19 12/09/19 Rx Cyclobenzaprine [Flexeril] 5 mg PO TID@0600,1400,2200 12/09/19 12/09/19 History Famotidine [Pepcid] 20 mg PO BID@0900,209912/09/19 12/09/19 History Ferrous Sulfate [Feosol] 325 mg PO BID@0800,209912/09/19 12/09/19 History Gabapentin [Neurontin] 300 mg PO Q12H 12/09/19 12/09/19 History Insulin Glargine,Hum.rec.anlog 60 unit SQ HS@209912/09/19 12/09/19 History [Basaglar Kwikpen U-100] Mag Hydrox/Aluminum Hyd/Simeth 30 ml PO Q4H PRN 12/09/19 12/09/19 History [Mylanta Maximum Strength Liq] Magnesium Hydroxide [Milk of 2,400 mg PO DAILY PRN 12/09/19 12/09/19 History Magnesia] Ondansetron [Zofran] 4 mg PO Q12HR PRN 12/09/19 12/09/19 History Pravastatin Sodium [Pravachol] 40 mg PO HS@209912/09/19 12/09/19 History QUEtiapine FUMARATE [SEROquel] 200 mg PO HS@209912/09/19 12/09/19 History Sennosides-Docusate Sodium 4 tab PO DAILY@0900 12/09/19 12/09/19 History [Senokot-S] Tamsulosin [Flomax] 0.4 mg PO HS@209912/09/19 12/09/19 History Vancomycin HCl in 5 % Dextrose 1 dose IV HS@2100 12/09/19 12/09/19 History [Vancomycin 1 Gram/250 ml-D5w] oxyCODONE HCL [OxyCONTIN] 20 mg PO Q12H 12/09/19 12/09/19 History Allergies Allergy/AdvReac Type Severity Reaction Status Date / Time haloperidol [From Haldol] AdvReac Hallucinati Verified 12/09/19 14:13 ons haloperidol lactate AdvReac Hallucinati Verified 12/09/19 14:13 [From Haldol] ons Physical Exam Vitals: Vital Signs Temp Pulse Resp BP Pulse Ox 12/09/19 15:09 97.8 F 98 18 106/67 93 L 12/09/19 13:29 97 20 100/62 94 L 12/09/19 12:21 99 F 96 18 93/61 94 L Intake and Output 12/09/19 12/09/19 12/09/19 06:59 14:59 22:59 Intake Total 250 Balance 250 Intake: Intake, IV Titration 250 Amount Azithromycin 500 mg In 250 Sodium Chloride 0.9% 250 ml @ 250 mls/hr IVPB DAILY [facility] Rx#:[id number] Other: Weight 108 kg GENERAL EXAM: Drowsy, 54-year-old white male, arousable, but confused, patient desats to 84% on room air, at times removes oxygen, forgets to put her back on, oxygen was reapplied, he sat 93-94% on 6 L comfortable in no apparent distress. HEAD: Normocephalic/atraumatic. EYES: Normal reaction of pupils, equal size. Conjunctiva pink, sclera white. NOSE: Clear with pink turbinates. THROAT: No erythema or exudates. NECK: No masses, no JVD, no thyroid enlargement, no adenopathy. CHEST: No chest wall deformity. Symmetrical expansion. LUNGS: Equal air entry with crackles at bilateral mid and lower lobes CVS: Regular rate and rhythm, normal S1 and S2, no gallops, no murmurs, no rubs ABDOMEN: Soft, nontender. No hepatosplenomegaly, normal bowel sounds, no guarding or rigidity. EXTREMITIES: No clubbing, no edema, no cyanosis, 2+ pulses and upper and lower extremities. MUSCULOSKELETAL: Muscle strength and tone normal. SPINE: No scoliosis or deformity SKIN: No rashes CENTRAL NERVOUS SYSTEM: Drowsy, oriented 1, confused No focal deficits, tone is normal in all 4 extremities. Results - Laboratory Findings CBC and BMP: 12/09/19 12:36 12/09/19 12:36 PT/INR, D-dimer PT 12.5 sec (9.0-12.0) H 12/09/19 12:36 INR 1.2 (<1.2) H 12/09/19 12:36 Abnormal lab findings: Abnormal Labs 12/09/19 12/09/19 12/09/19 12:30 12:36 12:36 WBC 14.7 H RBC 3.04 L Hgb 8.5 L Hct 26.1 L Neutrophils # 12.4 H PT 12.5 H INR 1.2 H APTT 31.9 H Sodium Chloride Carbon Dioxide BUN Creatinine Glucose POC Glucose (mg/dL) 102 H Troponin I Total Protein Albumin 12/09/19 12/09/19 12/09/19 12:36 12:36 14:03 WBC RBC Hgb Hct Neutrophils # PT INR APTT Sodium 134 L Chloride 97 L Carbon Dioxide 31 H BUN 26 H Creatinine 1.56 H Glucose 125 H POC Glucose (mg/dL) 66 L Troponin I 1.650 H* Total Protein 5.6 L Albumin 2.9 L 12/09/19 14:19 WBC RBC Hgb Hct Neutrophils # PT INR APTT Sodium Chloride Carbon Dioxide BUN Creatinine Glucose POC Glucose (mg/dL) 109 H Troponin I Total Protein Albumin - Diagnostic Findings Chest x-ray: report reviewed Additional studies: Brain CT, EKG Assessment and Plan Plan: Assessment: #1. Acute hypoxic respiratory failure related to possibility of pneumonia, chest x-ray showed patchy perihilar and basilar infiltrates, rule out possibility of aspiration #2. Altered mental status likely related to metabolic encephalopathy, #3. Elevated troponin, EKG without significant findings, recent echocardiogram showed preserved EF of 55-60%, no significant valvular disease, PA pressure of 26.3 mmHg. Cardiology consultations pending #4. Recent hospitalization for cervical spine epidural abscess of anterior cervical C7, and patient was discharged to [facility] on the vancomycin infusions for 6 weeks and which he continues #5. History of cervical myelopathy is status post surgical revision of C6 through T1 and corpectomy of C7 due to trauma, following a fall. Patient had open reduction and internal fixation carpectomy of C7 and fusion of C6 to T1 for recent C7 burst fracture on 10/11/2019 #6. Acute kidney injury #7. Obstructive sleep apnea on BiPAP therapy at home #8. Chronic smoker, unknown whether the patient is still smoking #9. Suspect underlying history of COPD #10. Diabetes mellitus type 2 #11. Hypertension #12. History of pancreatitis #13. History of anxiety, depression Plan: Continue current antibiotic coverage, currently on azithromycin and Zosyn, we added the vancomycin back, patient is supposed to be completing his 6 weeks of vancomycin infusions for recent history of cervical spine abscess. We'll obtain a blood gas, we'll place the patient on BiPAP support at bedtime with pressures of 12/5 and FiO2 of 45 percent. Blood gas was reviewed showing chronic hypercapnic respiratory failure, patient is lethargic, hold sedatives and narcotics if he remains lethargic, monitor mental status, apply BiPAP support. Maintain safety and aspiration precautions. Follow-up chest x-ray in the morning, obtain speech evaluation, continue with fluids at 130 ML per hour, patient appears to be very dry, dehydrated. Follow blood work in the morning, including CBC, BMP, serial troponins, cardiology evaluation. We'll continue to follow I performed a history & physical examination of the patient and discussed their management with my nurse practitioner, Aurelia Arenas. I reviewed the nurse practitioner's note and agree with the documented findings and plan of care. Lung sounds are positive for crackles at bilateral bases The findings and the impression was discussed with the patient. I attest to the documentation by the nurse practitioner. Time with Patient: Greater than 30
[2019-12-09] MEDS: GABAPENTIN 300 MG CAP PO SCH (17:29)
[2019-12-09] MEDS: oxyCODONE ER 20 MG TAB.ER.12H PO SCH (17:31)
[2019-12-09 20:21] LABS: Glucose,Whole Blood 123 mg/dL (75-99)
[2019-12-09] MEDS ORDERED: NON FORMULARY DRUG (Vancomycin Hcl In 5 % Dextrose [Vancomycin 1 Gram/250 Ml-D5w] 1 GM/250 IV SCH (21:00)
[2019-12-09] MEDS: IPRATROPIUM-ALBUTEROL 3 ML NEB INHALATION PRN (21:14)
[2019-12-09] MEDS: VANCOMYCIN 1,750 MG in SODIUM CHLORIDE 0.9% 500 ML 500 ML IVPB SCH (22:12)
[2019-12-09] MEDS: DULoxetine HCL 30 MG CAPSULE.DR PO SCH (22:12)
[2019-12-09] MEDS: METOPROLOL TARTRATE 25 MG TAB PO SCH (22:15)
[2019-12-09] MEDS: lamoTRIgine 100 MG TAB PO SCH (22:15)
[2019-12-09] MEDS: QUEtiapine 200 MG TAB PO SCH (22:16)
[2019-12-09] MEDS: CYCLOBENZAPRINE 5 MG TAB PO SCH (22:16)
[2019-12-09] MEDS: FAMOTIDINE 20 MG TAB PO SCH (22:16)
[2019-12-09] MEDS: traZODone HCL 100 MG TAB PO SCH (22:16)
[2019-12-09] MEDS: FERROUS SULFATE 325 MG TAB PO SCH (22:16)
[2019-12-09] MEDS: TAMSULOSIN 0.4 MG CAP.ER.24H PO SCH (22:16)
--- NOTE | 2019-12-09 23:50 | P.HPIM ---
History of Present Illness H&P Date: 12/09/19 Chief Complaint: Tired History of presenting complaint: This is a 54-year-old patient who follows with Dr. thomas from [place]. Chronic stable medical conditions include diabetes mellitus type II on insulin pump.,GERD, hypertension, obstructive sleep apnea uses CPAP, chronic pancreatitis, bipolar disorder and chronic low back pain. 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 underwent cervical spine surgery by Dr. Shanks-on October 10 2019. Patient is here in November-took a fall with displacement of the internal fixation and graft at C6 to T1. Patient underwent surgery in October 30. With removal of hardware and revision fixation At multiple levels. Local abscess was cleaned out. Cultures growing Staphylococcus epidermidis. Has a cervical collar since then. Patient is brought in from the EMS from the rehab. Patient is found to be bit confused. Had oxygen saturation 88% and a blood glucose down to 66. In the ER he reported feeling weak and tired. Not sure about his oral intake. No fever reported. Review of systems: GEN.: Tired EYES: None HEENT: None NECK: None RESPIRATORY: Occasional wheezing CARDIOVASCULAR: None GASTROINTESTINAL: None GENITOURINARY: None MUSCULOSKELETAL: Chronic low back pain, and also neck pain LYMPHATICS: None HEMATOLOGICAL: None PSYCHIATRY: None NEUROLOGICAL: None Past medical history: Diabetes on insulin pump, chronic pancreatitis, GERD, hypertension, primary osteoarthritis, sleep apnea uses CPAP, arthritis of the lumbar spine, cervical spine surgery Social history: Lives at rehab Patient be smoking over 35 years, smoking up to recently. History of alcohol abuse in the past close to 3 years ago. Family history: Hypertension Physical examination: VITAL SIGNS: 99, 96, 18, 93/61, any 4% on 6 L GENERAL: BMI 30.6, sitting up in a chair, tired EYES: Pupils equal. Conjunctiva normal. HEENT: External appearance of nose and ears normal, oral cavity grossly normal. NECK: JVD not raised; masses not palpable.Cervical collar HEART: First and second heart sounds are normal; no edema. LUNGS: Respiratory rate increased, diminished breath sounds mild wheezing ABDOMEN: Soft, no tenderness,, no guarding rigidity, liver spleen not palpable, no masses palpable. PSYCH: Tired but able to answer simple questions. NEUROLOGICAL: Cranial nerves grossly intact, moving all 4 limbs LYMPHATICS: No lymph nodes palpable in the axilla and neck INVESTIGATIONS, reviewed in the clinical context: White count 14.7 hemoglobin 8.5 platelets 328 potassium 4.2 bun 26 creatinine 1.56 Accu-Cheks 102, 78, 66 Troponin I 1.6, 2.7, proBNP 1200 EKG tracing personally reviewed by me-normal sinus rhythm Chest x-ray film personally reviewed by me-pulmonary edema, can rule out infiltrate Previous testing: Creatinine 1.0 Assessment: -Acute non-Q wave myocardial infarction -Possible pneumonia, suspect gram-negative organism -Acute congestive heart failure exacerbation - October 10-C6 C7 T1 removal of bone fragments from fracture of C7, decompression fusion and plating-4 C7 fracture, cervical spine stenosis , myelopathy disc herniation: Now presented with trauma with Computed tomography scan of the spine showing dislocation of anterior cervical fusionand C7 increased kyphosis at C6-C7; fracture of the left C6 lamina-status post replacement and repair. -History of C7 epidural abscess that was cleaned. Cultures positive for Staphylococcus epidermidis. -Diabetes mellitus type 2, uncontrolled with , hypoglycemia -GERD -Essential hypertension -Obstructive sleep apnea uses a BiPAP machine -Bipolar disorder -Chronic low back pain -Obesity BMI 30.6 -COPD in a current smoker -chronic pancreatitis. -Acute kidney injury could be from vancomycin Plan: Start the patient therapeutic Lovenox. Continue antibiotics. Consult ID with a view to changing vancomycin to different antibiotic. Follow Accu-Cheks closely. Fall precautions. Aspirin. Consult cardiology. Start IV Lasix. 2-D echocardiogram. Past Medical History Past Medical History: Asthma, COPD, Diabetes Mellitus, GERD/Reflux, Hypertension, Musculoskeletal Disorder, Osteoarthritis (OA), Pneumonia, Sleep Apnea/CPAP/BIPAP Additional Past Medical History / Comment(s): Pt recently admitted to [facility] on 10/30/19 with abscess in epidural space cervical spine/failed hardware with surgery/fall with cervical fracture. 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, R scapular fracture, per past meical record-thoracic lesion/pulmonary nodules but pt not sure about this, chronic pancreatitis/pancreatic pseudocyst, hepatic steatosis, past ETOH abuse, History of Any Multi-Drug Resistant Organisms: MRSA Date of last positivie culture/infection: 11/03/2008 MDRO Source:: spine Past Surgical History: Back Surgery, Cholecystectomy, Orthopedic Surgery, Tonsillectomy Additional Past Surgical History / Comment(s): Cervical surgery with recent revision anterior cervical corpectomy C7/removal of hardware and I&D, spinal fusion at L4 and L5, pancreatic surgery for pseudocyst w/stent-stent since removed, EGD Past Anesthesia/Blood Transfusion Reactions: No Reported Reaction Past Psychological History: Anxiety, Bipolar, Depression Additional Psychological History / Comment(s): Pt currently resides at [facility]. He is assisted by staff to wheelchair. He feeds himself. Smoking Status: Current every day smoker Past Alcohol Use History: None Reported Additional Past Alcohol Use History / Comment(s): Pt started smoking in 1988 and was a half ppd smoker. Past hx of alcohol abuse, pt states he has not drank in 6 yrs. Past Drug Use History: Opiates Additional Drug Use History / Comment(s): Pt has hx of opiate abuse- quit 4 years ago . - Past Family History Mother Family Medical History: Hypertension Additional Family Medical History / Comment(s): Pt states mother had no health problems. Father Family Medical History: No Reported History Additional Family Medical History / Comment(s): pt stated his father is - had no medicals problems and of natural causes. Medications and Allergies Home Medications Medication Instructions Recorded Confirmed Type Fenofibrate Nanocrystallized 145 mg PO DAILY@00 08/07/13 12/09/19 History [Fenofibrate] Metoprolol Tartrate [Lopressor] 25 mg PO BID@0900,209908/07/13 12/09/19 History Montelukast [Singulair] 10 mg PO HS@209908/07/13 12/09/19 History lamoTRIgine 200 mg PO BID@0900,209910/01/16 12/09/19 History Multivitamins, Thera [Multivitamin 1 tab PO DAILY@89910/22/16 12/09/19 History (formulary)] amLODIPine [Norvasc] 5 mg PO DAILY@89910/22/16 12/09/19 History Ergocalciferol [Vitamin D2 50,000 unit PO SA 10/31/18 12/09/19 History (DRISDOL)] Albuterol Sulfate [Ventolin HFA] 2 puff INHALATION RT-Q4H PRN 09/02/19 12/09/19 History DULoxetine HCL [Cymbalta] 30 mg PO BID@0900,209909/02/19 12/09/19 History Diclofenac Sodium Gel [Voltaren 2 gm TOPICAL QID PRN 09/02/19 12/09/19 History Gel] Dicyclomine [Bentyl] 20 mg PO Q6H PRN 09/02/19 12/09/19 History INSULIN ASPART (NovoLOG) [NovoLOG See Protocol SQ ACHS 09/02/19 12/09/19 History (formulary)] traZODone HCL [Desyrel] 100 mg PO HS@209909/02/19 12/09/19 History Gabapentin [Neurontin] 300 mg PO BID PRN 10/06/19 12/09/19 History oxyCODONE-APAP 10-325MG [Percocet 1 - 2 tab PO Q4H PRN 10/30/19 12/09/19 History 10-325 mg] traMADol HCL [Ultram] 50 mg PO Q4HR PRN 3 Days #18 tab 11/11/19 12/09/19 Rx Cyclobenzaprine [Flexeril] 5 mg PO TID@0600,1400,2200 12/09/19 12/09/19 History Famotidine [Pepcid] 20 mg PO BID@0900,209912/09/19 12/09/19 History Ferrous Sulfate [Feosol] 325 mg PO BID@0800,209912/09/19 12/09/19 History Gabapentin [Neurontin] 300 mg PO Q12H 12/09/19 12/09/19 History Insulin Glargine,Hum.rec.anlog 60 unit SQ HS@209912/09/19 12/09/19 History [Basaglar Kwikpen U-100] Mag Hydrox/Aluminum Hyd/Simeth 30 ml PO Q4H PRN 12/09/19 12/09/19 History [Mylanta Maximum Strength Liq] Magnesium Hydroxide [Milk of 2,400 mg PO DAILY PRN 12/09/19 12/09/19 History Magnesia] Ondansetron [Zofran] 4 mg PO Q12HR PRN 12/09/19 12/09/19 History Pravastatin Sodium [Pravachol] 40 mg PO HS@209912/09/19 12/09/19 History QUEtiapine FUMARATE [SEROquel] 200 mg PO HS@209912/09/19 12/09/19 History Sennosides-Docusate Sodium 4 tab PO DAILY@0900 12/09/19 12/09/19 History [Senokot-S] Tamsulosin [Flomax] 0.4 mg PO HS@209912/09/19 12/09/19 History Vancomycin HCl in 5 % Dextrose 1 dose IV HS@209912/09/19 12/09/19 History [Vancomycin 1 Gram/250 ml-D5w] oxyCODONE HCL [OxyCONTIN] 20 mg PO Q12H 12/09/19 12/09/19 History Allergies Allergy/AdvReac Type Severity Reaction Status Date / Time haloperidol [From Haldol] AdvReac Hallucinati Verified 12/09/19 14:13 ons haloperidol lactate AdvReac Hallucinati Verified 12/09/19 14:13 [From Haldol] ons Physical Exam Vitals: Vital Signs Temp Pulse Pulse Resp BP BP Pulse Ox 12/09/19 21:18 108 H 12/09/19 20:00 98.1 F 105 H 20 131/96 91 L 12/09/19 17:11 93 L 12/09/19 15:40 97.9 F 98 18 113/82 95 12/09/19 15:09 97.8 F 98 18 106/67 93 L 12/09/19 13:29 97 20 100/62 94 L 12/09/19 12:21 99 F 96 18 93/61 94 L Intake and Output 12/09/19 12/09/19 12/10/19 14:59 22:59 06:59 Intake Total 250 Balance 250 Intake: Intake, IV Titration 250 Amount Azithromycin 500 mg In 250 Sodium Chloride 0.9% 250 ml @ 250 mls/hr IVPB DAILY [facility] Rx#:[id number] Other: Weight 108 kg Results CBC & Chem 7: 12/09/19 12:36 12/09/19 12:36 Labs: Abnormal Lab Results - Last 24 Hours (Table) 12/09/19 12/09/19 12/09/19 Range/Units 12:30 12:36 12:36 WBC 14.7 H (3.8-10.6) k/uL RBC 3.04 L (4.30-5.90) m/uL Hgb 8.5 L (13.0-17.5) gm/dL Hct 26.1 L (39.0-53.0) % Neutrophils # 12.4 H (1.3-7.7) k/uL PT 12.5 H (9.0-12.0) sec INR 1.2 H (<1.2) APTT 31.9 H (22.0-30.0) sec ABG pCO2 (35-45) mmHg ABG pO2 (83-108) mmHg ABG HCO3 (21-25) mmol/L ABG Total CO2 (19-24) mmol/L ABG O2 Saturation (94-97) % Sodium (137-145) mmol/L Chloride (98-107) mmol/L Carbon Dioxide (22-30) mmol/L BUN (9-20) mg/dL Creatinine (0.66-1.25) mg/dL Glucose (74-99) mg/dL POC Glucose (mg/dL) 102 H (75-99) mg/dL Troponin I (0.000-0.034) ng/mL Total Protein (6.3-8.2) g/dL Albumin (3.5-5.0) g/dL 12/09/19 12/09/19 12/09/19 Range/Units 12:36 12:36 14:03 WBC (3.8-10.6) k/uL RBC (4.30-5.90) m/uL Hgb (13.0-17.5) gm/dL Hct (39.0-53.0) % Neutrophils # (1.3-7.7) k/uL PT (9.0-12.0) sec INR (<1.2) APTT (22.0-30.0) sec ABG pCO2 (35-45) mmHg ABG pO2 (83-108) mmHg ABG HCO3 (21-25) mmol/L ABG Total CO2 (19-24) mmol/L ABG O2 Saturation (94-97) % Sodium 134 L (137-145) mmol/L Chloride 97 L (98-107) mmol/L Carbon Dioxide 31 H (22-30) mmol/L BUN 26 H (9-20) mg/dL Creatinine 1.56 H (0.66-1.25) mg/dL Glucose 125 H (74-99) mg/dL POC Glucose (mg/dL) 66 L (75-99) mg/dL Troponin I 1.650 H* (0.000-0.034) ng/mL Total Protein 5.6 L (6.3-8.2) g/dL Albumin 2.9 L (3.5-5.0) g/dL 12/09/19 12/09/19 12/09/19 Range/Units 14:19 17:04 18:30 WBC (3.8-10.6) k/uL RBC (4.30-5.90) m/uL Hgb (13.0-17.5) gm/dL Hct (39.0-53.0) % Neutrophils # (1.3-7.7) k/uL PT (9.0-12.0) sec INR (<1.2) APTT (22.0-30.0) sec ABG pCO2 55 H (35-45) mmHg ABG pO2 63 L (83-108) mmHg ABG HCO3 32 H (21-25) mmol/L ABG Total CO2 34 H (19-24) mmol/L ABG O2 Saturation 91.0 L (94-97) % Sodium (137-145) mmol/L Chloride (98-107) mmol/L Carbon Dioxide (22-30) mmol/L BUN (9-20) mg/dL Creatinine (0.66-1.25) mg/dL Glucose (74-99) mg/dL POC Glucose (mg/dL) 109 H (75-99) mg/dL Troponin I 2.730 H* (0.000-0.034) ng/mL Total Protein (6.3-8.2) g/dL Albumin (3.5-5.0) g/dL 12/09/19 Range/Units 20:20 WBC (3.8-10.6) k/uL RBC (4.30-5.90) m/uL Hgb (13.0-17.5) gm/dL Hct (39.0-53.0) % Neutrophils # (1.3-7.7) k/uL PT (9.0-12.0) sec INR (<1.2) APTT (22.0-30.0) sec ABG pCO2 (35-45) mmHg ABG pO2 (83-108) mmHg ABG HCO3 (21-25) mmol/L ABG Total CO2 (19-24) mmol/L ABG O2 Saturation (94-97) % Sodium (137-145) mmol/L Chloride (98-107) mmol/L Carbon Dioxide (22-30) mmol/L BUN (9-20) mg/dL Creatinine (0.66-1.25) mg/dL Glucose (74-99) mg/dL POC Glucose (mg/dL) 123 H (75-99) mg/dL Troponin I (0.000-0.034) ng/mL Total Protein (6.3-8.2) g/dL Albumin (3.5-5.0) g/dL Thrombosis Risk Factor Assmnt - Choose All That Apply Any of the Below Risk Factors Present?: Yes Each Factor Represents 1 point: Abnormal pulmonary function (COPD), Age 41-60 years, Medical pt on bed rest, Obesity (BMI >25), Sepsis (< 1month), Serious lung disease incl. pneumonia (< 1month) Other Risk Factors: Yes Each Risk Factor Represents 2 Points: Patient confined to bed Other congenital or acquired thrombophilia - If yes, enter type in comment: No Thrombosis Risk Factor Assessment Total Risk Factor Score: 8 Thrombosis Risk Factor Assessment Level: High Risk
[2019-12-10] MEDS: PIPERACILLIN-TAZOBACTAM 3.375 GM in SODIUM CHLORIDE 0.9% 100 ML IVPB SCH ×3 (00:37→16:40)
[2019-12-10] MEDS: ENOXAPARIN 100 MG/ML SYRINGE SQ SCH ×3 (00:38→21:34)
[2019-12-10] MEDS: FUROSEMIDE 10 MG/ML 10 ML VIAL IV SCH ×3 (00:38→16:39)
[2019-12-10] MEDS: DEXTROSE 5%-0.9% NACL 1,000 ML IV SCH ×2 (03:20→12:20)
[2019-12-10 06:17] LABS: Glucose,Whole Blood 143 mg/dL (75-99)
[2019-12-10] MEDS: CYCLOBENZAPRINE 5 MG TAB PO SCH ×3 (06:37→21:33)
[2019-12-10] MEDS: INSULIN ASPART (NovoLOG) 100 UNIT/ML VIAL SQ SCH ×4 (06:37→21:34)
[2019-12-10] MEDS: GABAPENTIN 300 MG CAP PO SCH ×2 (06:37→17:42)
[2019-12-10] MEDS ORDERED: AZITHROMYCIN 500 MG in SODIUM CHLORIDE 0.9% 250 ML IVPB SCH (09:00)
--- NOTE | 2019-12-10 09:04 | XR ---
EXAMINATION TYPE: XR chest 1V portable DATE OF EXAM: 12/10/2019 COMPARISON: 12/09/2019 INDICATION: Pneumonia TECHNIQUE: Single frontal view of the chest is obtained. FINDINGS: The heart size is normal. The pulmonary vasculature is normal. Bibasilar infiltrates are present. Some midlung infiltrate may be present as well. IMPRESSION: 1. Bilateral scattered infiltrates greater in the mid and lower lung carbone.
[2019-12-10] MEDS: amLODIPine 5 MG TAB PO SCH (09:29)
[2019-12-10] MEDS: METOPROLOL TARTRATE 25 MG TAB PO SCH ×2 (09:29→21:33)
[2019-12-10] MEDS: DULoxetine HCL 30 MG CAPSULE.DR PO SCH ×3 (09:29→21:33)
[2019-12-10] MEDS: lamoTRIgine 100 MG TAB PO SCH ×2 (09:29→21:33)
[2019-12-10] MEDS: FENOFIBRATE 160 MG TAB PO SCH (09:29)
[2019-12-10] MEDS: SENNOSIDES-DOCUSATE SODIUM 1 EACH TAB PO SCH (09:29)
[2019-12-10] MEDS: FERROUS SULFATE 325 MG TAB PO SCH ×2 (09:30→21:33)
[2019-12-10] MEDS: FAMOTIDINE 20 MG TAB PO SCH ×2 (09:30→21:34)
[2019-12-10] MEDS: IPRATROPIUM-ALBUTEROL 3 ML NEB INHALATION PRN ×2 (09:32→15:54)
[2019-12-10] MEDS: oxyCODONE ER 20 MG TAB.ER.12H PO SCH ×3 (09:38→23:23)
[2019-12-10 12:06] LABS: Glucose,Whole Blood 204 mg/dL (75-99)
--- NOTE | 2019-12-10 12:31 | ECHOF ---
Referral Reason:for LV function MEASUREMENTS -------- HEIGHT: 188.0 cm WEIGHT: 101.2 kg BP: 135/67 FINDINGS -------- Resting tachycardia (HR>100bpm). Limited Study Overall left ventricular systolic function is normal with, an EF between 60 - 65 %. There is no pericardial effusion. CONCLUSIONS -------- 1. Resting tachycardia (HR>100bpm). 2. Limited Study 3. Overall left ventricular systolic function is normal with, an EF between 60 - 65 %. 4. There is no pericardial effusion. EDGE BEADER: Marcela Sal, CAROLCS
--- NOTE | 2019-12-10 12:50 | P.PN ---
Subjective Progress Note Date: 12/10/19 Principal diagnosis: Hypoxemia, shortness of breath, altered mentation 54-year-old white male patient of Dr. Wood with past medical history of hypertension, diabetes mellitus, obstructive sleep apnea on BiPAP, chronic back pain, chronic smoker, history of anxiety, depression, who was recently hospitalized from 10/30/2019 through 11/11/2019 when he came in for evaluation of severe shoulder pain after she sustained a fall at home a few weeks following his cervical spine surgery on 10/11/2019 for traumatic T7 burst fracture. Computed tomography scan of the cervical spine revealed traumatic displacement of anterior cervical internal fixation from C6 to T1, and on 10/31/2019 patient underwent anterior cervical decompression and fusion of C6 through T1 extending up to C5 with revision corpectomy C7 with short cage extending from C6 through T1 and posterior cervical fusion of C5 through T2. Patient had an episode of chest pain during the last admission, was evaluated by cardiology, EKG and echocardiogram without significant findings, d-dimer was elevated, CTA chest was without evidence of pulmonary embolism. Patient was discharged to [facility]. Of note during his surgery. Patient was found to have a cervical epidural abscess positive for Staphylococcus epidermidis and he was discharged with a PICC line in place for vancomycin infusions for 6 weeks. On 12/09/2019 patient was brought into the emergency department for evaluation of a ltered mental status, and hypoxemia with O2 saturations of 88%, blood sugar was 66 patient was given half amp of glucose with improvement of his symptoms. His oral membranes are extremely dry, patient is unclear whether he has been eating or drinking well. He seems somewhat confused, he is currently on 5 L of oxygen, he has removed his oxygen, and he is desaturating into the low 80s, seems cindy rgic. Denies any fevers, denies any dyspnea. Chest x-ray showed patchy perihilar and basilar infiltrates with a concern for pneumonia. Brain CT showed no acute abnormality. EKG showed normal sinus rhythm. Labs showed a white blood cell count of 14.7, hemoglobin of 8.5, INR is 1.2, sodium is 134, potassium is 4.2, chloride is 97, CO2 31, BUN is 26, creatinine is 1.56, lactic acid 0.8, troponin is 1.650, proBNP is 1200, urinalysis without sign of infection. Current antibiotic coverage is in the form of azithromycin, Zosyn, and we resumed his vancomycin for recent cervical spine abscess. COVID 19 PCR was sent, pending at this time. Patient is afebrile, he is lethargic, but breathing is nonlabored, he is a poor historian, he is confused. On 12/10/2019 patient seen in follow-up on selective care unit, he is much more awake today, overnight she was the BiPAP with settings of 12/5 and FiO2 of 45%, he is currently on 4 L of oxygen, he sitting up on the edge of the bed, in some questions appropriately, denies any acute distress, his been afebrile overnight. He was started on IV Lasix, continues on antibiotics including vancomycin and Zosyn, no hemoptysis, no completed chest pain, echocardiogram is pending, patient was started on therapeutic doses of Lovenox, lung sounds are diminished, with crackles in the mid to bilateral lower lobes. His troponin is 2.73. Cardiology consultation is pending, coronavirus was negative Objective - Vital Signs Vital signs: Vital Signs Temp 97.9 F 12/10/19 04:00 Pulse 100 12/10/19 09:45 Resp 18 12/10/19 04:00 BP 135/67 12/10/19 04:00 Pulse Ox 97 12/10/19 04:00 Intake & Output 12/09/19 12/10/19 12/10/19 18:59 06:59 18:59 Intake Total 250 500 Output Total 200 500 Balance 250 300 -500 Weight 108 kg 101.5 kg Intake: IV 500 Vancomycin 1,750 mg In 500 Sodium Chloride 0.9% 500 ml 500 ml @ 167 mls/hr IVPB Q24H [facility] Rx#: [id number] Intake, IV Titration 250 Amount Azithromycin 500 mg In 250 Sodium Chloride 0.9% 250 ml @ 250 mls/hr IVPB DAILY [facility] Rx#:[id number] Output: Urine 200 500 Other: # Voids 1 - Exam GENERAL EXAM: Alert, very pleasant, 54-year-old white male, and 6 L of oxygen w ith pulse ox of 91%-93%, comfortable in no apparent distress. HEAD: Normocephalic/atraumatic. EYES: Normal reaction of pupils, equal size. Conjunctiva pink, sclera white. NOSE: Clear with pink turbinates. THROAT: No erythema or exudates. NECK: No masses, no JVD, no thyroid enlargement, no adenopathy. Posterior neck incision is clean dry and intact CHEST: No chest wall deformity. Symmetrical expansion. LUNGS: Equal air entry with coarse crackles at bilateral lower and mid lungs CVS: Regular rate and rhythm, normal S1 and S2, no gallops, no murmurs, no rubs ABDOMEN: Soft, nontender. No hepatosplenomegaly, normal bowel sounds, no guarding or rigidity. EXTREMITIES: No clubbing, no edema, no cyanosis, 2+ pulses and upper and lower extremities. MUSCULOSKELETAL: Muscle strength and tone normal. SPINE: No scoliosis or deformity SKIN: No rashes CENTRAL NERVOUS SYSTEM: Alert and oriented -3. No focal deficits, tone is normal in all 4 extremities. PSYCHIATRIC: Alert and oriented -3. Appropriate affect. Intact judgment and insight. - Labs CBC & Chem 7: 12/09/19 12:36 12/09/19 12:36 Labs: Abnormal Lab Results - Last 24 Hours (Table) 12/09/19 12/09/19 12/09/19 Range/Units 12:30 12:36 12:36 WBC 14.7 H (3.8-10.6) k/uL RBC 3.04 L (4.30-5.90) m/uL Hgb 8.5 L (13.0-17.5) gm/dL Hct 26.1 L (39.0-53.0) % Neutrophils # 12.4 H (1.3-7.7) k/uL PT 12.5 H (9.0-12.0) sec INR 1.2 H (<1.2) APTT 31.9 H (22.0-30.0) sec ABG pCO2 (35-45) mmHg ABG pO2 (83-108) mmHg ABG HCO3 (21-25) mmol/L ABG Total CO2 (19-24) mmol/L ABG O2 Saturation (94-97) % Sodium (137-145) mmol/L Chloride (98-107) mmol/L Carbon Dioxide (22-30) mmol/L BUN (9-20) mg/dL Creatinine (0.66-1.25) mg/dL Glucose (74-99) mg/dL POC Glucose (mg/dL) 102 H (75-99) mg/dL Troponin I (0.000-0.034) ng/mL Total Protein (6.3-8.2) g/dL Albumin (3.5-5.0) g/dL 12/09/19 12/09/19 12/09/19 Range/Units 12:36 12:36 14:03 WBC (3.8-10.6) k/uL RBC (4.30-5.90) m/uL Hgb (13.0-17.5) gm/dL Hct (39.0-53.0) % Neutrophils # (1.3-7.7) k/uL PT (9.0-12.0) sec INR (<1.2) APTT (22.0-30.0) sec ABG pCO2 (35-45) mmHg ABG pO2 (83-108) mmHg ABG HCO3 (21-25) mmol/L ABG Total CO2 (19-24) mmol/L ABG O2 Saturation (94-97) % Sodium 134 L (137-145) mmol/L Chloride 97 L (98-107) mmol/L Carbon Dioxide 31 H (22-30) mmol/L BUN 26 H (9-20) mg/dL Creatinine 1.56 H (0.66-1.25) mg/dL Glucose 125 H (74-99) mg/dL POC Glucose (mg/dL) 66 L (75-99) mg/dL Troponin I 1.650 H* (0.000-0.034) ng/mL Total Protein 5.6 L (6.3-8.2) g/dL Albumin 2.9 L (3.5-5.0) g/dL 12/09/19 12/09/19 12/09/19 Range/Units 14:19 17:04 18:30 WBC (3.8-10.6) k/uL RBC (4.30-5.90) m/uL Hgb (13.0-17.5) gm/dL Hct (39.0-53.0) % Neutrophils # (1.3-7.7) k/uL PT (9.0-12.0) sec INR (<1.2) APTT (22.0-30.0) sec ABG pCO2 55 H (35-45) mmHg ABG pO2 63 L (83-108) mmHg ABG HCO3 32 H (21-25) mmol/L ABG Total CO2 34 H (19-24) mmol/L ABG O2 Saturation 91.0 L (94-97) % Sodium (137-145) mmol/L Chloride (98-107) mmol/L Carbon Dioxide (22-30) mmol/L BUN (9-20) mg/dL Creatinine (0.66-1.25) mg/dL Glucose (74-99) mg/dL POC Glucose (mg/dL) 109 H (75-99) mg/dL Troponin I 2.730 H* (0.000-0.034) ng/mL Total Protein (6.3-8.2) g/dL Albumin (3.5-5.0) g/dL 12/09/19 12/10/19 12/10/19 Range/Units 20:20 06:16 12:02 WBC (3.8-10.6) k/uL RBC (4.30-5.90) m/uL Hgb (13.0-17.5) gm/dL Hct (39.0-53.0) % Neutrophils # (1.3-7.7) k/uL PT (9.0-12.0) sec INR (<1.2) APTT (22.0-30.0) sec ABG pCO2 (35-45) mmHg ABG pO2 (83-108) mmHg ABG HCO3 (21-25) mmol/L ABG Total CO2 (19-24) mmol/L ABG O2 Saturation (94-97) % Sodium (137-145) mmol/L Chloride (98-107) mmol/L Carbon Dioxide (22-30) mmol/L BUN (9-20) mg/dL Creatinine (0.66-1.25) mg/dL Glucose (74-99) mg/dL POC Glucose (mg/dL) 123 H 143 H 204 H (75-99) mg/dL Troponin I (0.000-0.034) ng/mL Total Protein (6.3-8.2) g/dL Albumin (3.5-5.0) g/dL Assessment and Plan Plan: Assessment: #1. Acute hypoxic respiratory failure related to possibility of pneumonia, chest x-ray showed patchy perihilar and basilar infiltrates, rule out possibility of aspiration #2. Altered mental status likely related to metabolic encephalopathy, improved #3. Elevated troponin, EKG without significant findings, recent echocardiogram showed preserved EF of 55-60%, no significant valvular disease, PA pressure of 26.3 mmHg. Cardiology consultations pending #4. Recent hospitalization for cervical spine epidural abscess of anterior cervical C7, and patient was discharged to ECF on the vancomycin infusions for 6 weeks and which he continues #5. History of cervical myelopathy is status post surgical revision of C6 through T1 and corpectomy of C7 due to trauma, following a fall. Patient had open reduction and internal fixation carpectomy of C7 and fusion of C6 to T1 for recent C7 burst fracture on 10/11/2019 #6. Acute kidney injury #7. Obstructive sleep apnea on BiPAP therapy at home #8. Chronic smoker, unknown whether the patient is still smoking #9. Suspect underlying history of COPD #10. Diabetes mellitus type 2 #11. Hypertension #12. History of pancreatitis #13. History of anxiety, depression Plan: Continue antibiotics, will obtain follow-up labs, electrolytes and renal profile today. Cardiology consultations pending, echocardiogram is pending, continue BiPAP support at bedtime and as needed, mentation is improved, maintain aspiration precautions. Speech evaluation is pending. Vital signs are stable, COVID has been ruled out. I performed a history & physical examination of the patient and discussed their management with my nurse practitioner, Aurelia Arenas. I reviewed the nurse practitioner's note and agree with the documented findings and plan of care. Lung sounds are positive for crackles at bilateral bases The findings and the impression was discussed with the patient. I attest to the documentation by the nurse practitioner. Time with Patient: Less than 30
[2019-12-10 13:48] LABS: Basophils % (A) 0 %; Eosinophils # (A) 0.3 k/uL (0-0.7); Eosinophils % (A) 2 %; HCT 31.8 % (39.0-53.0); HGB 9.6 gm/dL (13.0-17.5); Hypochromasia Moderate; Lymphocytes # (A) 0.9 k/uL (1.0-4.8); Lymphocytes % (A) 6 %; MCH 25.9 pg (25.0-35.0); MCHC 30.2 g/dL (31.0-37.0); MCV 85.8 fL (80.0-100.0); Mean Platelet Volume 6.9; Monocytes # (A) 0.6 k/uL (0-1.0); Monocytes % (A) 4 %; Neutrophils # (A) 12.7 k/uL (1.3-7.7); Neutrophils % (A) 87 %; Platelet Count 387 k/uL (150-450); RBC 3.71 m/uL (4.30-5.90); RDW 13.9 % (11.5-15.5); WBC 14.5 k/uL (3.8-10.6)
--- NOTE | 2019-12-10 13:48 | P.CRDCN ---
History of Present Illness Consult date: 12/10/19 History of present illness: CHIEF COMPLAINT: Elevated troponin HISTORY OF PRESENT ILLNESS: This is a 54-year old male with a past medical history significant for hypertension, diabetes mellitus, COPD, obstructive sleep apnea, nicotine dependence. 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 We have been asked to see the patient in consultation for elevated troponin. Patient was recently hospitalized from 10/30/2019 until 11/11/2019. On 10/31/2019 patient underwent anterior cervical decompression and fusion of C6 through T1 extending up to C5 with revision corpectomy C7 with short cage extending from C6 through T1 and posterior cervical fusion of C5 through T2. Patient developed a cervical spine epidural abscess. He was discharged to [facility] with 6 weeks of vancomycin infusions. Patient was evaluated during previous admission for chest pain. Outpatient stress test was recommended after infectious process has healed. Patient presented back to the hospital secondary to altered mental status and shortness of breath. Patient states he had an episode of chest pain 2 days ago. The pain was mid sternal with no radiation. He denies shortness of breath at that time. He states the pain lasted for about 30 seconds and then went away. Patient denies chest pain this morning at the time of examination. He reports feeling short of breath this morning. DIAGNOSTICS: EKG reveals sinus rhythm Chest xray bilateral scattered infiltrates greater in the mid and lower lung carbone Laboratory data: WBC 14.7. Hemoglobin 8.5. Platelet count 328. Sodium 134. Potassium 4.2. BUN 26. Creatinine 1.56. BNP 1200. Troponin 1.650. 2.730. Current home cardiac medications include Norvasc 5 mg daily, pravastatin 40 mg daily, and metoprolol 25 mg twice a day. Echocardiogram completed November 2019 revealed ejection fraction 55-60%, mild mitral regurgitation, and mild tricuspid regurgitation REVIEW OF SYSTEMS: At the time of my exam: CONSTITUTIONAL: Denies fever or chills. HEENT: Denies blurred vision, vision changes, or eye pain. Denies hemoptysis CARDIOVASCULAR: Denies chest pain, orthopnea, PND or palpitations RESPIRATORY: No shortness of breath. GASTROINTESTINAL: Denies abdominal pain. Denies nausea or vomiting. HEMATOLOGIC: Denies bleeding disorders. GENITOURINARY: Denies any blood in urine. SKIN: Denies pruitis. Denies rash. PHYSICAL EXAM: VITAL SIGNS: Reviewed. GENERAL: Well-developed in no acute distress. HEENT: Head is normocephalic. Pupils are equal, round. Sclerae anicteric. Mucous membranes of the mouth are moist. Neck supple. No JVD or thyromegaly LUNGS: Respirations even and unlabored. Lungs diminished. HEART: Regular rate and rhythm. S1 and S2 heard. ABDOMEN: Soft. Nondistended. Nontender. EXTREMITIES: Normal range of motion. No clubbing or cyanosis. Peripheral pulses intact. No lower extremity edema NEUROLOGIC: Awake and alert. Oriented x 3. ASSESSMENT: Acute hypoxic respiratory failure, possible pneumonia Elevated troponins, may be secondary to infectious process however cannot rule out coronary artery disease History of cervical spine epidural abscess on vancomycin infusions 6 weeks Hypertension Diabetes mellitus type II Obstructive sleep apnea Nicotine dependence History of anterior cervical decompression and fusion of C6 through T1 extending up to C5 with revision corpectomy C7 with short cage extending from C6 through T1 and posterior cervical fusion of C5 through T2 PLAN: Repeat 2D echo to evaluate LV function Patient has been started on therapeutic dose of Lovenox. Agreeable to continue this. Continue antibiotics Pulmonary following. Appreciate input Possible stress test/cardiac cath when medically stable Further recommendations pending patient's course Nurse practitioner note has been reviewed by physician. Signing provider agrees with the documented findings, assessment, and plan of care. Past Medical History Past Medical History: Asthma, COPD, Diabetes Mellitus, GERD/Reflux, Hypertension, Musculoskeletal Disorder, Osteoarthritis (OA), Pneumonia, Sleep Apnea/CPAP/BIPAP Additional Past Medical History / Comment(s): Pt recently admitted to [facility] on 10/30/19 with abscess in epidural space cervical spine/failed hardware with huma sabra/fall with cervical fracture. 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, R scapular fracture, per past meical record-thoracic lesion/pulmonary nodules but pt not sure about this, chronic pancreatitis/pancreatic pseudocyst, hepatic steatosis, past ETOH abuse, History of Any Multi-Drug Resistant Organisms: MRSA Date of last positivie culture/infection: 11/03/2008 MDRO Source:: spine Past Surgical History: Back Surgery, Cholecystectomy, Orthopedic Surgery, Tonsillectomy Additional Past Surgical History / Comment(s): Cervical surgery with recent revision anterior cervical corpectomy C7/removal of hardware and I&D, spinal fusion at L4 and L5, pancreatic surgery for pseudocyst w/stent-stent since removed, EGD Past Anesthesia/Blood Transfusion Reactions: No Reported Reaction Past Psychological History: Anxiety, Bipolar, Depression Additional Psychological History / Comment(s): Pt currently resides at [facility] on the [place]. He is assisted by staff to wheelchair. He feeds himself. Smoking Status: Current every day smoker Past Alcohol Use History: None Reported Additional Past Alcohol Use History / Comment(s): Pt started smoking in 1988 and was a half ppd smoker. Past hx of alcohol abuse, pt states he has not drank in 6 yrs. Past Drug Use History: Opiates Additional Drug Use History / Comment(s): Pt has hx of opiate abuse- quit 4 years ago . - Past Family History Mother Family Medical History: Hypertension Additional Family Medical History / Comment(s): Pt states mother had no health problems. Father Family Medical History: No Reported History Additional Family Medical History / Comment(s): pt stated his father is - had no medicals problems and of natural causes. Medications and Allergies Home Medications Medication Instructions Recorded Confirmed Type Fenofibrate Nanocrystallized 145 mg PO DAILY@0900 08/07/13 12/09/19 History [Fenofibrate] Metoprolol Tartrate [Lopressor] 25 mg PO BID@899,209908/07/13 12/09/19 History Montelukast [Singulair] 10 mg PO HS@209908/07/13 12/09/19 History lamoTRIgine 200 mg PO BID@0900,209910/01/16 12/09/19 History Multivitamins, Thera [Multivitamin 1 tab PO DAILY@0900 10/22/16 12/09/19 History (formulary)] amLODIPine [Norvasc] 5 mg PO DAILY@0900 10/22/16 12/09/19 History Ergocalciferol [Vitamin D2 50,000 unit PO SA 10/31/18 12/09/19 History (DRISDOL)] Albuterol Sulfate [Ventolin HFA] 2 puff INHALATION RT-Q4H PRN 09/02/19 12/09/19 History DULoxetine HCL [Cymbalta] 30 mg PO BID@0900,209909/02/19 12/09/19 History Diclofenac Sodium Gel [Voltaren 2 gm TOPICAL QID PRN 09/02/19 12/09/19 History Gel] Dicyclomine [Bentyl] 20 mg PO Q6H PRN 09/02/19 12/09/19 History INSULIN ASPART (NovoLOG) [NovoLOG See Protocol SQ ACHS 09/02/19 12/09/19 History (formulary)] traZODone HCL [Desyrel] 100 mg PO HS@209909/02/19 12/09/19 History Gabapentin [Neurontin] 300 mg PO BID PRN 10/06/19 12/09/19 History oxyCODONE-APAP 10-325MG [Percocet 1 - 2 tab PO Q4H PRN 10/30/19 12/09/19 History 10-325 mg] traMADol HCL [Ultram] 50 mg PO Q4HR PRN 3 Days #18 tab 11/11/19 12/09/19 Rx Cyclobenzaprine [Flexeril] 5 mg PO TID@0600,1400,2200 12/09/19 12/09/19 History Famotidine [Pepcid] 20 mg PO BID@0900,209912/09/19 12/09/19 History Ferrous Sulfate [Feosol] 325 mg PO BID@0800,209912/09/19 12/09/19 History Gabapentin [Neurontin] 300 mg PO Q12H 12/09/19 12/09/19 History Insulin Glargine,Hum.rec.anlog 60 unit SQ HS@209912/09/19 12/09/19 History [Basaglar Kwikpen U-100] Mag Hydrox/Aluminum Hyd/Simeth 30 ml PO Q4H PRN 12/09/19 12/09/19 History [Mylanta Maximum Strength Liq] Magnesium Hydroxide [Milk of 2,400 mg PO DAILY PRN 12/09/19 12/09/19 History Magnesia] Ondansetron [Zofran] 4 mg PO Q12HR PRN 12/09/19 12/09/19 History Pravastatin Sodium [Pravachol] 40 mg PO HS@209912/09/19 12/09/19 History QUEtiapine FUMARATE [SEROquel] 200 mg PO HS@209912/09/19 12/09/19 History Sennosides-Docusate Sodium 4 tab PO DAILY@0900 12/09/19 12/09/19 History [Senokot-S] Tamsulosin [Flomax] 0.4 mg PO HS@2100 12/09/19 12/09/19 History Vancomycin HCl in 5 % Dextrose 1 dose IV HS@2100 12/09/19 12/09/19 History [Vancomycin 1 Gram/250 ml-D5w] oxyCODONE HCL [OxyCONTIN] 20 mg PO Q12H 12/09/19 12/09/19 History Allergies Allergy/AdvReac Type Severity Reaction Status Date / Time haloperidol [From Haldol] AdvReac Hallucinati Verified 12/09/19 14:13 ons haloperidol lactate AdvReac Hallucinati Verified 12/09/19 14:13 [From Haldol] ons Physical Exam Vitals: Vital Signs Temp Pulse Pulse Resp BP BP Pulse Ox 12/10/19 09:45 100 12/10/19 09:33 104 H 12/10/19 04:00 97.9 F 102 H 18 135/67 97 12/10/19 00:00 97.8 F 94 18 119/72 94 L 12/09/19 21:18 108 H 12/09/19 20:00 98.1 F 105 H 20 131/96 91 L 12/09/19 17:11 93 L 12/09/19 15:40 97.9 F 98 18 113/82 95 12/09/19 15:09 97.8 F 98 18 106/67 93 L Intake and Output 12/09/19 12/10/19 12/10/19 22:59 06:59 14:59 Intake Total 500 Output Total 200 500 Balance 500 -200 -500 Intake: IV 500 Vancomycin 1,750 mg In 500 Sodium Chloride 0.9% 500 ml 500 ml @ 167 mls/hr IVPB Q24H [facility] Rx#: [id number] Output: Urine 200 500 Other: # Voids 1 Weight 101.5 kg Results 12/09/19 12:36 12/09/19 12:36 Cardiac Enzymes 12/09/19 Range/Units 18:30 Troponin I 2.730 H* (0.000-0.034) ng/mL Current Medications Generic Name Dose Route Start Last Admin Trade Name Freq PRN Reason Stop Dose Admin Al Hydroxide/Mg Hydroxide 30 ml 12/09/19 16:33 Mag Hydrox/Al Hydrox/Simeth 30 Ml Cup PO Q4H PRN Constipation Albuterol/Ipratropium 3 ml 12/09/19 14:13 12/10/19 09:32 Ipratropium-Albuterol 3 Ml Neb INHALATION 3 ml RT-Q4H PRN Administration shortness of breath Amlodipine Besylate 5 mg 12/10/19 09:00 12/10/19 09:29 Amlodipine 5 Mg Tab PO 5 mg DAILY@0900 ASHLEY Administration Cyclobenzaprine HCl 5 mg 12/09/19 22:00 12/10/19 06:37 Cyclobenzaprine 5 Mg Tab PO 5 mg TID@0600,1400,2200 ASHLEY Administration Duloxetine HCl 30 mg 12/09/19 21:00 12/10/19 09:42 Duloxetine Hcl 30 Mg Capsule.Dr PO 30 mg BID@0900,2100 ASHLEY Administration Enoxaparin Sodium 100 mg 12/09/19 23:45 12/10/19 09:30 Enoxaparin 100 Mg/Ml Syringe SQ 100 mg Q12HR ASHLEY Administration Famotidine 20 mg 12/09/19 21:00 12/10/19 09:30 Famotidine 20 Mg Tab PO 20 mg BID@0900,2100 ASHLEY Administration Fenofibrate 160 mg 12/10/19 09:00 12/10/19 09:29 Fenofibrate 160 Mg Tab PO 160 mg DAILY@0900 ASHLEY Administration Ferrous Sulfate 325 mg 12/09/19 21:00 12/10/19 09:30 Ferrous Sulfate 325 Mg Tab PO 325 mg BID@0800,2100 ASHLEY Administration Furosemide 60 mg 12/10/19 00:00 12/10/19 09:29 Furosemide 10 Mg/Ml 10 Ml Vial IV 60 mg Q8HR ASHLEY Administration Gabapentin 300 mg 12/09/19 18:00 12/10/19 06:37 Gabapentin 300 Mg Cap PO 300 mg Q12H ASHLEY Administration Gabapentin 300 mg 12/09/19 16:33 Gabapentin 300 Mg Cap PO BID PRN Pain Piperacillin Sod/Tazobactam 100 mls @ 25 mls/hr 12/10/19 00:00 12/10/19 09:28 Sod 3.375 gm/ Sodium Chloride IVPB 12/16/19 00:01 25 mls/hr Q8HR ASHLEY Administration Dextrose/Sodium Chloride 1,000 mls @ 100 mls/hr 12/09/19 17:15 12/10/19 12:20 Dextrose 5%-Ns Iv Soln IV 100 mls/hr .Q10H ASHLEY Administration Vancomycin HCl 1,750 mg/ 500 mls @ 167 mls/hr 12/09/19 21:00 12/09/19 22:12 Sodium Chloride IVPB 167 mls/hr Q24H ASHLEY Administration Insulin Aspart 0 unit 12/09/19 17:30 12/10/19 12:20 Insulin Aspart (Novolog) 100 Unit/Ml Vial SQ 4 unit ACHS ASHLEY Administration Protocol Lamotrigine 200 mg 12/09/19 21:00 12/10/19 09:29 Lamotrigine 100 Mg Tab PO 200 mg BID@0900,2099 ASHLEY Administration Magnesium Hydroxide 2,400 mg 12/09/19 16:33 Magnesium Hydroxide 2,400 Mg/10 Ml Cup PO DAILY PRN Constipation Metoprolol Tartrate 25 mg 12/09/19 21:00 12/10/19 09:29 Metoprolol Tartrate 25 Mg Tab PO 25 mg BID@0900,2099 ASHLEY Administration Miscellaneous Information 1 each 12/09/19 14:13 Pneumonia Protocol Utilized 1 Each Misc PO ONCE PRN Per Protocol Oxycodone HCl 20 mg 12/10/19 11:00 12/10/19 10:41 Oxycodone Er 20 Mg Tab.Er.12h PO 20 mg Q12H ASHLEY Administration Quetiapine Fumarate 200 mg 12/09/19 21:00 12/09/19 22:16 Quetiapine 200 Mg Tab PO 200 mg HS@2100 ASHLEY Administration Senna/Docusate Sodium 4 each 12/10/19 09:00 12/10/19 09:29 Sennosides-Docusate Sodium 1 Each Tab PO 4 each DAILY@0900 ASHLEY Administration Tamsulosin HCl 0.4 mg 12/09/19 21:00 12/09/19 22:16 Tamsulosin 0.4 Mg Cap.Er.24h PO 0.4 mg HS@2100 ASHLEY Administration Trazodone HCl 100 mg 12/09/19 21:00 12/09/19 22:16 Trazodone Hcl 100 Mg Tab PO 100 mg HS@2100 ASHLEY Administration Intake and Output 12/09/19 12/10/19 12/10/19 22:59 06:59 14:59 Intake Total 500 Output Total 200 500 Balance 500 -200 -500 Intake: IV 500 Vancomycin 1,750 mg In 500 Sodium Chloride 0.9% 500 ml 500 ml @ 167 mls/hr IVPB Q24H [facility] Rx#: [id number] Output: Urine 200 500 Other: # Voids 1 Weight 101.5 kg 12/09/19 12:36 12/09/19 12:36
[2019-12-10 13:53] LABS: Calcium 11.1 mg/dL (8.4-10.2); Potassium 4.3 mmol/L (3.5-5.1)
--- NOTE | 2019-12-10 16:43 | P.PN ---
Progress Note - Text Progress Note Date: 12/10/19 Chief Complaint: Tired History of presenting complaint: This is a 54-year-old patient who follows with Dr. thomas from [place]. Chronic stable medical conditions include diabetes mellitus type II on insulin pump.,GERD, hypertension, obstructive sleep apnea uses CPAP, chronic pancreatitis, bipolar disorder and chronic low back pain. 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 underwent cervical spine surgery by Dr. Shanks-on October 10 2019. Patient is here in November-took a fall with displacement of the internal fixation and graft at C6 to T1. Patient underwent surgery in October 30. With removal of hardware and revision fixation At multiple levels. Local abscess was cleaned out. Cultures growing Staphylococcus epidermidis. Has a cervical collar since then. Patient is brought in from the EMS from the rehab. Patient is found to be bit confused. Had oxygen saturation 88% and a blood glucose down to 66. In the ER he reported feeling weak and tired. Not sure about his oral intake. No fever reported. Admitted with acute non-Q-wave PR, acute congestive heart failure exacerbation, possible pneumonia. Put on IV Lasix. Therapeutic Lovenox dose. Today-feeling better. Tired. Not hungry. Not for any cardiac catheterization per cardiology Review of systems: Was done for constitutional, cardiovascular, GI, pulmonary. relevant finding as above Active Medications Al Hydroxide/Mg Hydroxide (Mag Hydrox/Al Hydrox/Simeth 30 Ml Cup) 30 ml PO Q4H PRN PRN Reason: Constipation Albuterol/Ipratropium (Ipratropium-Albuterol 3 Ml Neb) 3 ml INHALATION RT-Q4H P RN PRN Reason: shortness of breath Last Admin: 12/10/19 15:54 Dose: 3 ml Documented by: Amlodipine Besylate (Amlodipine 5 Mg Tab) 5 mg PO DAILY@0900 ON LICENSE OF [facility] Last Admin: 12/10/19 09:29 Dose: 5 mg Documented by: Cyclobenzaprine HCl (Cyclobenzaprine 5 Mg Tab) 5 mg PO TID@0600,1400,2200 ON LICENSE OF [facility] Last Admin: 12/10/19 06:37 Dose: 5 mg Documented by: Duloxetine HCl (Duloxetine Hcl 30 Mg Mariah.) 30 mg PO BID@0900,2100 ON LICENSE OF [facility] Last Admin: 12/10/19 09:42 Dose: 30 mg Documented by: Enoxaparin Sodium (Enoxaparin 100 Mg/Ml Syringe) 100 mg SQ Q12HR ON LICENSE OF [facility] Last Admin: 12/10/19 09:30 Dose: 100 mg Documented by: Famotidine (Famotidine 20 Mg Tab) 20 mg PO BID@0900,2100 ON LICENSE OF [facility] Last Admin: 12/10/19 09:30 Dose: 20 mg Documented by: Fenofibrate (Fenofibrate 160 Mg Tab) 160 mg PO DAILY@0900 ON LICENSE OF [facility] Last Admin: 12/10/19 09:29 Dose: 160 mg Documented by: Ferrous Sulfate (Ferrous Sulfate 325 Mg Tab) 325 mg PO BID@0800,2100 ON LICENSE OF [facility] Last Admin: 12/10/19 09:30 Dose: 325 mg Documented by: Furosemide (Furosemide 10 Mg/Ml 10 Ml Vial) 60 mg IV Q8HR ON LICENSE OF [facility] Last Admin: 12/10/19 09:29 Dose: 60 mg Documented by: Gabapentin (Gabapentin 300 Mg Cap) 300 mg PO Q12H ON LICENSE OF [facility] Last Admin: 12/10/19 06:37 Dose: 300 mg Documented by: Gabapentin (Gabapentin 300 Mg Cap) 300 mg PO BID PRN PRN Reason: Pain Piperacillin Sod/Tazobactam (Sod 3.375 gm/ Sodium Chloride) 100 mls @ 25 mls/hr IVPB Q8HR ON LICENSE OF [facility] Stop: 12/16/19 00:01 Last Admin: 12/10/19 09:28 Dose: 25 mls/hr Documented by: Dextrose/Sodium Chloride (Dextrose 5%-Ns Iv Soln) 1,000 mls @ 100 mls/hr IV .Q10H ON LICENSE OF [facility] Last Admin: 12/10/19 12:20 Dose: 100 mls/hr Documented by: Vancomycin HCl 1,750 mg/ (Sodium Chloride) 500 mls @ 167 mls/hr IVPB Q24H ON LICENSE OF [facility] Last Admin: 12/09/19 22:12 Dose: 167 mls/hr Documented by: Insulin Aspart (Insulin Aspart (Novolog) 100 Unit/Ml Vial) 0 unit SQ ACHS ON LICENSE OF [facility]; Protocol Last Admin: 12/10/19 12:20 Dose: 4 unit Documented by: Lamotrigine (Lamotrigine 100 Mg Tab) 200 mg PO BID@0900,2100 ON LICENSE OF [facility] Last Admin: 12/10/19 09:29 Dose: 200 mg Documented by: Magnesium Hydroxide (Magnesium Hydroxide 2,400 Mg/10 Ml Cup) 2,400 mg PO DAILY PRN PRN Reason: Constipation Metoprolol Tartrate (Metoprolol Tartrate 25 Mg Tab) 25 mg PO BID@0900,2100 ON LICENSE OF [facility] Last Admin: 12/10/19 09:29 Dose: 25 mg Documented by: Miscellaneous Information (Pneumonia Protocol Utilized 1 Each [facility]) 1 each PO ONCE PRN PRN Reason: Per Protocol Oxycodone HCl (Oxycodone Er 20 Mg Tab.Er.12h) 20 mg PO Q12H ON LICENSE OF [facility] Last Admin: 12/10/19 10:41 Dose: 20 mg Documented by: Quetiapine Fumarate (Quetiapine 200 Mg Tab) 200 mg PO HS@2099 ON LICENSE OF [facility] Last Admin: 12/09/19 22:16 Dose: 200 mg Documented by: Senna/Docusate Sodium (Sennosides-Docusate Sodium 1 Each Tab) 4 each PO DAILY@0900 ON LICENSE OF [facility] Last Admin: 12/10/19 09:29 Dose: 4 each Documented by: Tamsulosin HCl (Tamsulosin 0.4 Mg Cap.Er.24h) 0.4 mg PO HS@2099 ON LICENSE OF [facility] Last Admin: 12/09/19 22:16 Dose: 0.4 mg Documented by: Trazodone HCl (Trazodone Hcl 100 Mg Tab) 100 mg PO HS@2099 ON LICENSE OF [facility] Last Admin: 12/09/19 22:16 Dose: 100 mg Documented by: . Physical examination: VITAL SIGNS: 97.5, 102, 18, 139/65, 92% on 4 L GENERAL: Laying in bed, tired EYES: Pupils equal. Conjunctiva normal. NECK: J.Cervical collar HEART: First and second heart sounds are normal; no edema. LUNGS: Respiratory rate increased, diminished breath sounds mild wheezing ABDOMEN: Soft, no tenderness,, no guarding rigidity, liver spleen not palpable, no masses palpable. PSYCH: Answering questions NEUROLOGICAL: Cranial nerves grossly intact, moving all 4 limbs INVESTIGATIONS, reviewed in the clinical context: White count 14.5 hemoglobin 9.6 potassium 4.3 bun 21 and creatinine 1.45 2-D echocardiogram-EF 60-65% Previous testing: White count 14.7 hemoglobin 8.5 platelets 328 potassium 4.2 bun 26 creatinine 1. 56 Accu-Cheks 102, 78, 66 Troponin I 1.6, 2.7, proBNP 1200 EKG tracing personally reviewed by me-normal sinus rhythm Chest x-ray film personally reviewed by me-pulmonary edema, can rule out infiltrate Previous testing: Creatinine 1.0 Assessment: -Acute non-Q wave myocardial infarction-to be managed conservatively -Possible pneumonia, suspect gram-negative organism -Acute congestive heart failure exacerbation-some improvement - October 10-C6 C7 T1 removal of bone fragments from fracture of C7, decompression fusion and plating-4 C7 fracture, cervical spine stenosis , myelopathy disc herniation: Now presented with trauma with Computed tomography scan of the spine showing dislocation of anterior cervical fusionand C7 increased kyphosis at C6-C7; fracture of the left C6 lamina-status post replacement and repair. -History of C7 epidural abscess that was cleaned. Cultures positive for Staphylococcus epidermidis. -Diabetes mellitus type 2, uncontrolled with , hypoglycemia better -GERD -Essential hypertension -Obstructive sleep apnea uses a BiPAP machine -Bipolar disorder -Chronic low back pain -Obesity BMI 30.6 -COPD in a current smoker -chronic pancreatitis. -Acute kidney injury could be from vancomycin Plan: Keep on therapeutic Lovenox. No chest pain. Feels better. Remains on IV Lasix. IV Zosyn. Follow closely
[2019-12-10 16:58] LABS: Glucose,Whole Blood 251 mg/dL (75-99)
[2019-12-10 20:41] LABS: Glucose,Whole Blood 205 mg/dL (75-99)
[2019-12-10] MEDS: traZODone HCL 100 MG TAB PO SCH (21:33)
[2019-12-10] MEDS: QUEtiapine 200 MG TAB PO SCH (21:33)
[2019-12-10] MEDS: TAMSULOSIN 0.4 MG CAP.ER.24H PO SCH (21:33)
[2019-12-10] MEDS: VANCOMYCIN 1,750 MG in SODIUM CHLORIDE 0.9% 500 ML 500 ML IVPB SCH (21:34)
--- NOTE | 2019-12-10 22:51 | P.CONS ---
History of Present Illness - Reason for Consult Consult date: 12/10/19 Acute kidney injury on vancomycin Requesting physician: Guy Mendoza - Chief Complaint Mental status changes x one day - History of Present Illness Patient is a 54-year-old male who was recently admitted at this facility twice this patient who did have evidence of C7 epidural abscess status post drainage and removal of the hardware culture were positive for staph epidermidis blood culture were negative patient did get a PICC line and was discharged to [facility] on 11/11/2019 to finish a 6-8 week course of therapy patient, brought back to the [facility] ER for evaluation of appendicitis status changes patient also have a low O2 sats of 88% and blood sugar of 66 patient did receive an amp of D50 and was thought to [facility] ER on arrival to the ER the patient did have low-grade fever of 99F he did have elevated at 14.78 and also noticed to have elevated creatinine 1.56, vancomycin random level of 20 with concern for acute kidney injury the patient has been admitted to the hospital, patient also have a chest x-ray shows patchy perihilar and basilar infiltrate.Correlate for underlying pneumonia, patient is currently being treated with vancomycin and Zosyn and infectious disease was consulted for further management of antibiotic therapy Review of Systems Positive point has been mentioned in the HPI rest of the systems are negative Past Medical History Past Medical History: Asthma, COPD, Diabetes Mellitus, GERD/Reflux, Hypertension, Musculoskeletal Disorder, Osteoarthritis (OA), Pneumonia, Sleep Apnea/CPAP/BIPAP Additional Past Medical History / Comment(s): Pt recently admitted to [facility] on 10/30/19 with abscess in epidural space cervical spine/failed hardware with surgery/fall with cervical fracture. 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, R scapular fracture, per past meical record-thoracic lesion/pulmonary nodules but pt not sure about this, chronic pancreatitis/pancreatic pseudocyst, hepatic steatosis, past ETOH abuse, History of Any Multi-Drug Resistant Organisms: MRSA Year Discovered:: 11/03/2008 MDRO Source:: spine Past Surgical History: Back Surgery, Cholecystectomy, Orthopedic Surgery, Tonsillectomy Additional Past Surgical History / Comment(s): Cervical surgery with recent revision anterior cervical corpectomy C7/removal of hardware and I&D, spinal fusion at L4 and L5, pancreatic surgery for pseudocyst w/stent-stent since removed, EGD Past Anesthesia/Blood Transfusion Reactions: No Reported Reaction Past Psychological History: Anxiety, Bipolar, Depression Additional Psychological History / Comment(s): Pt currently resides at [facility] on the [address]. He is assisted by staff to wheelchair. He feeds himself. Smoking Status: Current every day smoker Past Alcohol Use History: None Reported Additional Past Alcohol Use History / Comment(s): Pt started smoking in 1988 and was a half ppd smoker. Past hx of alcohol abuse, pt states he has not drank in 6 yrs. Past Drug Use History: Opiates Additional Drug Use History / Comment(s): Pt has hx of opiate abuse- quit 4 years ago . - Past Family History Mother Family Medical History: Hypertension Additional Family Medical History / Comment(s): Pt states mother had no health problems. Father Family Medical History: No Reported History Additional Family Medical History / Comment(s): pt stated his father is - had no medicals problems and of natural causes. Medications and Allergies Home Medications Medication Instructions Recorded Confirmed Type Fenofibrate Nanocrystallized 145 mg PO DAILY@00 08/07/13 12/09/19 History [Fenofibrate] Metoprolol Tartrate [Lopressor] 25 mg PO BID@899,209908/07/13 12/09/19 History Montelukast [Singulair] 10 mg PO HS@209908/07/13 12/09/19 History lamoTRIgine 200 mg PO BID@09,209910/01/16 12/09/19 History Multivitamins, Thera [Multivitamin 1 tab PO DAILY@89910/22/16 12/09/19 History (formulary)] amLODIPine [Norvasc] 5 mg PO DAILY@89910/22/16 12/09/19 History Ergocalciferol [Vitamin D2 50,000 unit PO SA 10/31/18 12/09/19 History (DRISDOL)] Albuterol Sulfate [Ventolin HFA] 2 puff INHALATION RT-Q4H PRN 09/02/19 12/09/19 History DULoxetine HCL [Cymbalta] 30 mg PO BID@0900,209909/02/19 12/09/19 History Diclofenac Sodium Gel [Voltaren 2 gm TOPICAL QID PRN 09/02/19 12/09/19 History Gel] Dicyclomine [Bentyl] 20 mg PO Q6H PRN 09/02/19 12/09/19 History INSULIN ASPART (NovoLOG) [NovoLOG See Protocol SQ ACHS 09/02/19 12/09/19 History (formulary)] traZODone HCL [Desyrel] 100 mg PO HS@209909/02/19 12/09/19 History Gabapentin [Neurontin] 300 mg PO BID PRN 10/06/19 12/09/19 History oxyCODONE-APAP 10-325MG [Percocet 1 - 2 tab PO Q4H PRN 10/30/19 12/09/19 History 10-325 mg] traMADol HCL [Ultram] 50 mg PO Q4HR PRN 3 Days #18 tab 11/11/19 12/09/19 Rx Cyclobenzaprine [Flexeril] 5 mg PO TID@0600,1400,2200 12/09/19 12/09/19 History Famotidine [Pepcid] 20 mg PO BID@0900,209912/09/19 12/09/19 History Ferrous Sulfate [Feosol] 325 mg PO BID@0800,209912/09/19 12/09/19 History Gabapentin [Neurontin] 300 mg PO Q12H 12/09/19 12/09/19 History Insulin Glargine,Hum.rec.anlog 60 unit SQ HS@209912/09/19 12/09/19 History [Basaglar Kwikpen U-100] Mag Hydrox/Aluminum Hyd/Simeth 30 ml PO Q4H PRN 12/09/19 12/09/19 History [Mylanta Maximum Strength Liq] Magnesium Hydroxide [Milk of 2,400 mg PO DAILY PRN 12/09/19 12/09/19 History Magnesia] Ondansetron [Zofran] 4 mg PO Q12HR PRN 12/09/19 12/09/19 History Pravastatin Sodium [Pravachol] 40 mg PO HS@209912/09/19 12/09/19 History QUEtiapine FUMARATE [SEROquel] 200 mg PO HS@209912/09/19 12/09/19 History Sennosides-Docusate Sodium 4 tab PO DAILY@0900 12/09/19 12/09/19 History [Senokot-S] Tamsulosin [Flomax] 0.4 mg PO HS@2100 12/09/19 12/09/19 History Vancomycin HCl in 5 % Dextrose 1 dose IV HS@2100 12/09/19 12/09/19 History [Vancomycin 1 Gram/250 ml-D5w] oxyCODONE HCL [OxyCONTIN] 20 mg PO Q12H 12/09/19 12/09/19 History Allergies Allergy/AdvReac Type Severity Reaction Status Date / Time haloperidol [From Haldol] AdvReac Hallucinati Verified 12/09/19 14:13 ons haloperidol lactate AdvReac Hallucinati Verified 12/09/19 14:13 [From Haldol] ons Physical Exam Vitals: Vital Signs Temp Pulse Pulse Resp BP Pulse Ox 12/10/19 16:09 100 12/10/19 15:54 100 12/10/19 12:45 97.9 F 102 H 18 139/65 92 L 12/10/19 09:45 100 12/10/19 09:33 104 H 12/10/19 09:10 97.9 F 101 H 18 124/77 95 12/10/19 04:00 97.9 F 102 H 18 135/67 97 12/10/19 00:00 97.8 F 94 18 119/72 94 L 12/09/19 21:18 108 H 12/09/19 20:00 98.1 F 105 H 20 131/96 91 L 12/09/19 17:11 93 L Intake and Output 12/10/19 12/10/19 12/10/19 06:59 14:59 22:59 Output Total 200 500 Balance -200 -500 Output: Urine 200 500 Other: # Voids 1 Weight 101.5 kg 101.5 kg GENERAL DESCRIPTION: Middle-aged male lying in bed, no distress. No tachypnea or accessory muscle of respiration use. HEENT: Shows Pallor , no scleral icterus. Oral mucous membrane is dry. No pharyngeal erythema or thrush NECK: Trachea central, no thyromegaly. LUNGS: Unlabored breathing. Decreased intensity of breath sounds. No wheeze or crackle. HEART: S1, S2, regular rate and rhythm. No loud murmur ABDOMEN: Soft, no tenderness , guarding or rigidity, no organomegaly EXTREMITIES: No edema of feet. SKIN: No rash, no masses palpable. Patient posterior neck and upper back incision is currently healed no swelling no redness NEUROLOGICAL: The patient is awake, alert, oriented x3, mood and affect normal. Results CBC & Chem 7: 12/10/19 01:30 12/10/19 01:30 Labs: Abnormal Lab Results - Last 24 Hours (Table) 12/09/19 12/09/19 12/09/19 Range/Units 17:04 18:30 20:20 WBC (3.8-10.6) k/uL RBC (4.30-5.90) m/uL Hgb (13.0-17.5) gm/dL Hct (39.0-53.0) % MCHC (31.0-37.0) g/dL Neutrophils # (1.3-7.7) k/uL Lymphocytes # (1.0-4.8) k/uL ABG pCO2 55 H (35-45) mmHg ABG pO2 63 L (83-108) mmHg ABG HCO3 32 H (21-25) mmol/L ABG Total CO2 34 H (19-24) mmol/L ABG O2 Saturation 91.0 L (94-97) % Sodium (137-145) mmol/L Chloride (98-107) mmol/L Carbon Dioxide (22-30) mmol/L BUN (9-20) mg/dL Creatinine (0.66-1.25) mg/dL Glucose (74-99) mg/dL POC Glucose (mg/dL) 123 H (75-99) mg/dL Calcium (8.4-10.2) mg/dL Troponin I 2.730 H* (0.000-0.034) ng/mL 12/10/19 12/10/19 12/10/19 Range/Units 01:30 01:30 06:16 WBC 14.5 H (3.8-10.6) k/uL RBC 3.71 L (4.30-5.90) m/uL Hgb 9.6 L (13.0-17.5) gm/dL Hct 31.8 L (39.0-53.0) % MCHC 30.2 L (31.0-37.0) g/dL Neutrophils # 12.7 H (1.3-7.7) k/uL Lymphocytes # 0.9 L (1.0-4.8) k/uL ABG pCO2 (35-45) mmHg ABG pO2 (83-108) mmHg ABG HCO3 (21-25) mmol/L ABG Total CO2 (19-24) mmol/L ABG O2 Saturation (94-97) % Sodium 135 L (137-145) mmol/L Chloride 91 L (98-107) mmol/L Carbon Dioxide 36 H (22-30) mmol/L BUN 21 H (9-20) mg/dL Creatinine 1.45 H (0.66-1.25) mg/dL Glucose 212 H (74-99) mg/dL POC Glucose (mg/dL) 143 H (75-99) mg/dL Calcium 11.1 H (8.4-10.2) mg/dL Troponin I (0.000-0.034) ng/mL 12/10/19 Range/Units 12:02 WBC (3.8-10.6) k/uL RBC (4.30-5.90) m/uL Hgb (13.0-17.5) gm/dL Hct (39.0-53.0) % MCHC (31.0-37.0) g/dL Neutrophils # (1.3-7.7) k/uL Lymphocytes # (1.0-4.8) k/uL ABG pCO2 (35-45) mmHg ABG pO2 (83-108) mmHg ABG HCO3 (21-25) mmol/L ABG Total CO2 (19-24) mmol/L ABG O2 Saturation (94-97) % Sodium (137-145) mmol/L Chloride (98-107) mmol/L Carbon Dioxide (22-30) mmol/L BUN (9-20) mg/dL Creatinine (0.66-1.25) mg/dL Glucose (74-99) mg/dL POC Glucose (mg/dL) 204 H (75-99) mg/dL Calcium (8.4-10.2) mg/dL Troponin I (0.000-0.034) ng/mL Microbiology - Last 24 Hours (Table) 12/09/19 13:53 Blood Culture - Preliminary Blood No Growth after 24 hours Assessment and Plan Assessment: 1- patient presented to hospital with mental status changes which is likely multifactorial this patient noticed to have low blood sugar also with a component of dehydration with elevated BUN and creatinine however the patient also have elevated vancomycin random level and concern for underlying vancomycin toxicity with elevated creatinine this patient currently undergoing antibiotic therapy for his C7 epidural abscess status post surgical drainage culture positive for staph epidermidis 2-patient with abnormal chest x-ray with concern for possible pneumonia the patient didn't have significant respiratory symptoms of cough or sputum production (1) Abscess in epidural space of cervical spine Current Visit: No Status: Acute Code(s): G06.1 - INTRASPINAL ABSCESS AND GRANULOMA SNOMED Code(s): 829120294 (2) Acute kidney injury Current Visit: No Status: Acute Code(s): N17.9 - ACUTE KIDNEY FAILURE, UNSPECIFIED SNOMED Code(s): 49053229 Plan: 1- discontinue the vancomycin as the current combination of Zosyn and vancomycin will increase his risk of nephrotoxicity 2- we will add Daptomycin 6 mg g per KG 3- try to obtain a sputum for grams and culture, check urine for Legionella antigen We will follow on clinical condition and cultures to further adjust medication if needed Thank you for this consultation will follow this patient with you Time with Patient: Greater than 30
[2019-12-11] MEDS: FUROSEMIDE 10 MG/ML 10 ML VIAL IV SCH ×3 (00:17→16:06)
[2019-12-11] MEDS: PIPERACILLIN-TAZOBACTAM 3.375 GM in SODIUM CHLORIDE 0.9% 100 ML IVPB SCH ×3 (00:18→16:06)
[2019-12-11] MEDS: GABAPENTIN 300 MG CAP PO SCH ×3 (05:48→21:36)
[2019-12-11] MEDS: CYCLOBENZAPRINE 5 MG TAB PO SCH ×3 (05:48→21:36)
[2019-12-11 06:19] LABS: Glucose,Whole Blood 195 mg/dL (75-99)
[2019-12-11] MEDS: INSULIN ASPART (NovoLOG) 100 UNIT/ML VIAL SQ SCH ×4 (06:37→21:37)
--- NOTE | 2019-12-11 07:59 | XR ---
EXAMINATION TYPE: XR chest 1V portable DATE OF EXAM: 12/11/2019 CLINICAL HISTORY: Difficulty breathing and pneumonia progress study. TECHNIQUE: Single AP portable semiupright view of the chest is obtained. COMPARISON: Chest x-ray from one day earlier and older studies. CTA chest November 11, 2019 FINDINGS: Worsening reticular and reticulonodular interstitial changes on background chronic emphyse matous change. Worsening mid to lower lung opacities bilaterally. Persistent slightly elevated left h emidiaphragm. Cardiac silhouette size stable and within normal limits. Partial visualization of exten sive surgical change in the cervical spine IMPRESSION: Chronic changes with continued worsening alveolar and interstitial edema and/or infiltrat es mid to lower lungs from most recent study.
[2019-12-11] MEDS: SENNOSIDES-DOCUSATE SODIUM 1 EACH TAB PO SCH (08:12)
[2019-12-11] MEDS: METOPROLOL TARTRATE 25 MG TAB PO SCH ×2 (08:12→21:36)
[2019-12-11] MEDS: FENOFIBRATE 160 MG TAB PO SCH (08:12)
[2019-12-11] MEDS: FAMOTIDINE 20 MG TAB PO SCH ×2 (08:12→21:36)
[2019-12-11] MEDS: amLODIPine 5 MG TAB PO SCH (08:12)
[2019-12-11] MEDS: FERROUS SULFATE 325 MG TAB PO SCH ×2 (08:12→21:35)
[2019-12-11] MEDS: DULoxetine HCL 30 MG CAPSULE.DR PO SCH (08:12)
[2019-12-11] MEDS: lamoTRIgine 100 MG TAB PO SCH ×2 (08:12→21:35)
[2019-12-11] MEDS: ENOXAPARIN 100 MG/ML SYRINGE SQ SCH ×2 (08:19→21:37)
[2019-12-11 09:01] LABS: Potassium 3.9 mmol/L (3.5-5.1)
[2019-12-11] MEDS: oxyCODONE ER 20 MG TAB.ER.12H PO SCH ×2 (10:35→23:04)
[2019-12-11 11:58] LABS: Glucose,Whole Blood 192 mg/dL (75-99)
--- NOTE | 2019-12-11 13:01 | P.PN ---
Subjective Progress Note Date: 12/11/19 Principal diagnosis: Hypoxemia, shortness of breath, altered mentation 54-year-old white male patient of Dr. Wood with past medical history of hypertension, diabetes mellitus, obstructive sleep apnea on BiPAP, chronic back pain, chronic smoker, history of anxiety, depression, who was recently hospitalized from 10/30/2019 through 11/11/2019 when he came in for evaluation of severe shoulder pain after she sustained a fall at home a few weeks following his cervical spine surgery on 10/11/2019 for traumatic T7 burst fracture. Computed tomography scan of the cervical spine revealed traumatic displacement of anterior cervical internal fixation from C6 to T1, and on 10/31/2019 patient underwent anterior cervical decompression and fusion of C6 through T1 extending up to C5 with revision corpectomy C7 with short cage extending from C6 through T1 and posterior cervical fusion of C5 through T2. Patient had an episode of chest pain during the last admission, was evaluated by cardiology, EKG and echocardiogram without significant findings, d-dimer was elevated, CTA chest was without evidence of pulmonary embolism. Patient was discharged to [facility]. Of note during his surgery. Patient was found to have a cervical epidural abscess positive for Staphylococcus epidermidis and he was discharged with a PICC line in place for vancomycin infusions for 6 weeks. On 12/09/2019 patient was brought into the emergency department for evaluation of a ltered mental status, and hypoxemia with O2 saturations of 88%, blood sugar was 66 patient was given half amp of glucose with improvement of his symptoms. His oral membranes are extremely dry, patient is unclear whether he has been eating or drinking well. He seems somewhat confused, he is currently on 5 L of oxygen, he has removed his oxygen, and he is desaturating into the low 80s, seems cindy rgic. Denies any fevers, denies any dyspnea. Chest x-ray showed patchy perihilar and basilar infiltrates with a concern for pneumonia. Brain CT showed no acute abnormality. EKG showed normal sinus rhythm. Labs showed a white blood cell count of 14.7, hemoglobin of 8.5, INR is 1.2, sodium is 134, potassium is 4.2, chloride is 97, CO2 31, BUN is 26, creatinine is 1.56, lactic acid 0.8, troponin is 1.650, proBNP is 1200, urinalysis without sign of infection. Current antibiotic coverage is in the form of azithromycin, Zosyn, and we resumed his vancomycin for recent cervical spine abscess. COVID 19 PCR was sent, pending at this time. Patient is afebrile, he is lethargic, but breathing is nonlabored, he is a poor historian, he is confused. On 12/10/2019 patient seen in follow-up on selective care unit, he is much more awake today, overnight she was the BiPAP with settings of 12/5 and FiO2 of 45%, he is currently on 4 L of oxygen, he sitting up on the edge of the bed, in some questions appropriately, denies any acute distress, his been afebrile overnight. He was started on IV Lasix, continues on antibiotics including vancomycin and Zosyn, no hemoptysis, no completed chest pain, echocardiogram is pending, patient was started on therapeutic doses of Lovenox, lung sounds are diminished, with crackles in the mid to bilateral lower lobes. His troponin is 2.73. Cardiology consultation is pending, coronavirus was negative On 12/11/2019 patient seen in follow-up on selective care unit, he is awake and alert, resting comfortably in bed, he is currently on 6 L of oxygen pulse ox 96%, vital signs stable, afebrile, breathing is nonlabored, no wheezing, no rhonchi, no significant cough or congestion. Much more awake on today's exam, his been wearing his BiPAP at night. Today's chest x-ray shows stable alveolar and interstitial edema, despite the diuretics. Afebrile, ID service is following, her cultures have shown no growth, current antibiotic coverage is in the form of daptomycin and Zosyn. His swallowing evaluation was within normal limits. Objective - Vital Signs Vital signs: Vital Signs Temp 97.6 F 12/11/19 12:08 Pulse 103 H 12/11/19 12:08 Resp 18 12/11/19 12:08 BP 132/75 12/11/19 12:08 Pulse Ox 96 12/11/19 12:08 Intake & Output 12/10/19 12/11/19 12/11/19 18:59 06:59 18:59 Intake Total 222 540 Output Total 500 300 Balance -278 240 Weight 101.5 kg 97.5 kg Intake: Oral 222 540 Output: Urine 500 300 - Exam GENERAL EXAM: Alert, very pleasant, 54-year-old white male, and 5 L of oxygen with pulse ox of 96%, comfortable in no apparent distress. HEAD: Normocephalic/atraumatic. EYES: Normal reaction of pupils, equal size. Conjunctiva pink, sclera white. NOSE: Clear with pink turbinates. THROAT: No erythema or exudates. NECK: No masses, no JVD, no thyroid enlargement, no adenopathy. Posterior neck incision is clean dry and intact. Patient has a neck collar in place CHEST: No chest wall deformity. Symmetrical expansion. LUNGS: Equal air entry with coarse crackles at bilateral lower and mid lungs CVS: Regular rate and rhythm, normal S1 and S2, no gallops, no murmurs, no rubs ABDOMEN: Soft, nontender. No hepatosplenomegaly, normal bowel sounds, no guarding or rigidity. EXTREMITIES: No clubbing, no edema, no cyanosis, 2+ pulses and upper and lower extremities. MUSCULOSKELETAL: Muscle strength and tone normal. SPINE: No scoliosis or deformity SKIN: No rashes CENTRAL NERVOUS SYSTEM: Alert and oriented -3. No focal deficits, tone is normal in all 4 extremities. PSYCHIATRIC: Alert and oriented -3. Appropriate affect. Intact judgment and insight. - Labs CBC & Chem 7: 12/10/19 01:30 12/11/19 08:09 Labs: Abnormal Lab Results - Last 24 Hours (Table) 12/10/19 12/10/19 12/10/19 Range/Units 01:30 01:30 01:30 WBC 14.5 H (3.8-10.6) k/uL RBC 3.71 L (4.30-5.90) m/uL Hgb 9.6 L (13.0-17.5) gm/dL Hct 31.8 L (39.0-53.0) % MCHC 30.2 L (31.0-37.0) g/dL Neutrophils # 12.7 H (1.3-7.7) k/uL Lymphocytes # 0.9 L (1.0-4.8) k/uL Sodium 135 L (137-145) mmol/L Chloride 91 L (98-107) mmol/L Carbon Dioxide 36 H (22-30) mmol/L BUN 21 H (9-20) mg/dL Creatinine 1.45 H (0.66-1.25) mg/dL Glucose 212 H (74-99) mg/dL POC Glucose (mg/dL) (75-99) mg/dL Calcium 11.1 H (8.4-10.2) mg/dL Troponin I (0.000-0.034) ng/mL Procalcitonin 0.30 H (0.02-0.09) ng/mL 12/10/19 12/10/19 12/11/19 Range/Units 16:52 20:40 06:18 WBC (3.8-10.6) k/uL RBC (4.30-5.90) m/uL Hgb (13.0-17.5) gm/dL Hct (39.0-53.0) % MCHC (31.0-37.0) g/dL Neutrophils # (1.3-7.7) k/uL Lymphocytes # (1.0-4.8) k/uL Sodium (137-145) mmol/L Chloride (98-107) mmol/L Carbon Dioxide (22-30) mmol/L BUN (9-20) mg/dL Creatinine (0.66-1.25) mg/dL Glucose (74-99) mg/dL POC Glucose (mg/dL) 251 H 205 H 195 H (75-99) mg/dL Calcium (8.4-10.2) mg/dL Troponin I (0.000-0.034) ng/mL Procalcitonin (0.02-0.09) ng/mL 12/11/19 12/11/19 12/11/19 Range/Units 08:09 08:09 11:57 WBC (3.8-10.6) k/uL RBC (4.30-5.90) m/uL Hgb (13.0-17.5) gm/dL Hct (39.0-53.0) % MCHC (31.0-37.0) g/dL Neutrophils # (1.3-7.7) k/uL Lymphocytes # (1.0-4.8) k/uL Sodium 136 L (137-145) mmol/L Chloride 89 L (98-107) mmol/L Carbon Dioxide 39 H (22-30) mmol/L BUN 21 H (9-20) mg/dL Creatinine 1.85 H (0.66-1.25) mg/dL Glucose 175 H (74-99) mg/dL POC Glucose (mg/dL) 192 H (75-99) mg/dL Calcium 11.0 H (8.4-10.2) mg/dL Troponin I 1.700 H* (0.000-0.034) ng/mL Procalcitonin (0.02-0.09) ng/mL Microbiology - Last 24 Hours (Table) 12/09/19 13:53 Blood Culture - Preliminary Blood No Growth after 24 hours Assessment and Plan Plan: Assessment: #1. Acute on chronic hypoxic respiratory failure related to possibility of pneumonia, chest x-ray showed patchy perihilar and basilar infiltrates, rule out possibility of aspiration #2. Altered mental status likely related to metabolic encephalopathy, improved #3. Elevated troponin, EKG without significant findings, recent echocardiogram showed preserved EF of 55-60%, no significant valvular disease, PA pressure of 26.3 mmHg. Cardiology consultations pending #4. Recent hospitalization for cervical spine epidural abscess of anterior cervical C7, and patient was discharged to [facility] on the vancomycin infusions for 6 weeks and which he continues #5. History of cervical myelopathy is status post surgical revision of C6 through T1 and corpectomy of C7 due to trauma, following a fall. Patient had open reduction and internal fixation carpectomy of C7 and fusion of C6 to T1 for recent C7 burst fracture on 10/11/2019 #6. Acute kidney injury, worsening related to diuretic therapy #7. Obstructive sleep apnea on BiPAP therapy at home #8. Chronic smoker, unknown whether the patient is still smoking #9. Suspect underlying history of COPD #10. Diabetes mellitus type 2 #11. Hypertension #12. History of pancreatitis #13. History of anxiety, depression Plan: Antibiotics per ID service recommendations, continue weaning FiO2, today's chest x-ray has been reviewed, showing relatively stable alveolar and interstitial infiltrates. Renal profile was noted to be worsening, will defer to the attending physician to adjust the diuretics. No cough or congestion, no chest pain, mentation much improved, continue using BiPAP at night and as needed during the day, weaning FiO2, continue nebulized bronchodilators. I performed a history & physical examination of the patient and discussed their management with my nurse practitioner, Aurelia Arenas. I reviewed the nurse practitioner's note and agree with the documented findings and plan of care. Lung sounds are positive for crackles at bilateral bases The findings and the impression was discussed with the patient. I attest to the documentation by the nurse practitioner. Time with Patient: Less than 30
[2019-12-11] MEDS: ONDANSETRON 4 MG TAB PO PRN ×2 (13:13→20:14)
--- NOTE | 2019-12-11 14:42 | P.PN ---
<Mone Benito - Last Filed: 12/11/19 14:39> Subjective Progress Note Date: 12/11/19 CHIEF COMPLAINT: Elevated troponin HISTORY OF PRESENT ILLNESS: Patient examined this morning at the bedside. He denies shortness of breath or cough. Denies chest pain or pressure. He reports feeling like the right side of his chest is bruised. Echocardiogram completed yesterday reveals ejection fraction between 60 and 65%. Troponin 1.650. 2.730. 1.700. PHYSICAL EXAM: VITAL SIGNS: Reviewed. GENERAL: Well-developed in no acute distress. HEENT: Head is normocephalic. Pupils are equal, round. Sclerae anicteric. Mucous membranes of the mouth are moist. Neck supple. No JVD or thyromegaly LUNGS: Respirations even and unlabored. Lungs diminished. HEART: Regular rate and rhythm. S1 and S2 heard. ABDOMEN: Soft. Nondistended. Nontender. EXTREMITIES: Normal range of motion. No clubbing or cyanosis. Peripheral pulses intact. No lower extremity edema NEUROLOGIC: Awake and alert. Oriented x 3. ASSESSMENT: Acute hypoxic respiratory failure, possible pneumonia Elevated troponins, may be secondary to infectious process however cannot rule out coronary artery disease History of cervical spine epidural abscess on vancomycin infusions 6 weeks Hypertension Diabetes mellitus type II Obstructive sleep apnea Nicotine dependence History of anterior cervical decompression and fusion of C6 through T1 extending up to C5 with revision corpectomy C7 with short cage extending from C6 through T1 and posterior cervical fusion of C5 through T2 PLAN: Continue therapeutic dose of Lovenox. Continue antibiotics Pulmonary following. Appreciate input If patient remains hospitalized over the weekend, will plan for Verónica scan stress test on Saturday Nurse practitioner note has been reviewed by physician. Signing provider agrees with the documented findings, assessment, and plan of care. Objective - Vital Signs Vital signs: Vital Signs Temp 97.6 F 12/11/19 12:08 Pulse 103 H 12/11/19 12:08 Resp 18 12/11/19 12:08 BP 132/75 12/11/19 12:08 Pulse Ox 96 12/11/19 12:08 Intake & Output 12/10/19 12/11/19 12/11/19 18:59 06:59 18:59 Intake Total 222 540 0 Output Total 500 300 Balance -278 240 0 Weight 101.5 kg 97.5 kg Intake: Oral 222 540 0 Output: Urine 500 300 - Labs CBC & Chem 7: 12/10/19 01:30 12/11/19 08:09 Labs: Abnormal Lab Results - Last 24 Hours (Table) 12/10/19 12/10/19 12/10/19 Range/Units 01:30 16:52 20:40 Sodium (137-145) mmol/L Chloride (98-107) mmol/L Carbon Dioxide (22-30) mmol/L BUN (9-20) mg/dL Creatinine (0.66-1.25) mg/dL Glucose (74-99) mg/dL POC Glucose (mg/dL) 251 H 205 H (75-99) mg/dL Calcium (8.4-10.2) mg/dL Troponin I (0.000-0.034) ng/mL Procalcitonin 0.30 H (0.02-0.09) ng/mL 12/11/19 12/11/19 12/11/19 Range/Units 06:18 08:09 08:09 Sodium 136 L (137-145) mmol/L Chloride 89 L (98-107) mmol/L Carbon Dioxide 39 H (22-30) mmol/L BUN 21 H (9-20) mg/dL Creatinine 1.85 H (0.66-1.25) mg/dL Glucose 175 H (74-99) mg/dL POC Glucose (mg/dL) 195 H (75-99) mg/dL Calcium 11.0 H (8.4-10.2) mg/dL Troponin I 1.700 H* (0.000-0.034) ng/mL Procalcitonin (0.02-0.09) ng/mL 12/11/19 Range/Units 11:57 Sodium (137-145) mmol/L Chloride (98-107) mmol/L Carbon Dioxide (22-30) mmol/L BUN (9-20) mg/dL Creatinine (0.66-1.25) mg/dL Glucose (74-99) mg/dL POC Glucose (mg/dL) 192 H (75-99) mg/dL Calcium (8.4-10.2) mg/dL Troponin I (0.000-0.034) ng/mL Procalcitonin (0.02-0.09) ng/mL Microbiology - Last 24 Hours (Table) 12/09/19 13:53 Blood Culture - Preliminary Blood No Growth after 24 hours <Ilir Kellogg - Last Filed: 12/11/19 17:16> Subjective Patient without any angina, troponins have leveled off. Suspect type 2 NSTEMI from sepsis. Cr continues to increase. Do not believe patient is a good interventional candidate at this point with recent abscess, spinal surgery, anemia and YADIRA. Echo shows normal EF and patient without chest pain. If patient remains hospitalized, would consider a Lexiscan nuclear stress test on Saturday to further risk stratify patient however patient still not felt to be good interventional candidate currently. No further cardiology recommendations at this point. Please call with questions. Raj Kellogg DO Objective - Vital Signs Vital signs: Vital Signs Temp 97.8 F 12/11/19 16:29 Pulse 116 H 12/11/19 16:29 Resp 18 12/11/19 16:29 BP 129/83 12/11/19 16:29 Pulse Ox 95 12/11/19 16:29 Intake & Output 12/10/19 12/11/19 12/11/19 18:59 06:59 18:59 Intake Total 222 540 0 Output Total 500 300 275 Balance -278 240 -275 Weight 101.5 kg 97.5 kg Intake: Oral 222 540 0 Output: Urine 500 300 275 - Labs CBC & Chem 7: 12/10/19 01:30 12/11/19 08:09 Labs: Abnormal Lab Results - Last 24 Hours (Table) 12/10/19 12/10/19 12/11/19 Range/Units 01:30 20:40 06:18 Sodium (137-145) mmol/L Chloride (98-107) mmol/L Carbon Dioxide (22-30) mmol/L BUN (9-20) mg/dL Creatinine (0.66-1.25) mg/dL Glucose (74-99) mg/dL POC Glucose (mg/dL) 205 H 195 H (75-99) mg/dL Calcium (8.4-10.2) mg/dL Troponin I (0.000-0.034) ng/mL Procalcitonin 0.30 H (0.02-0.09) ng/mL 12/11/19 12/11/19 12/11/19 Range/Units 08:09 08:09 11:57 Sodium 136 L (137-145) mmol/L Chloride 89 L (98-107) mmol/L Carbon Dioxide 39 H (22-30) mmol/L BUN 21 H (9-20) mg/dL Creatinine 1.85 H (0.66-1.25) mg/dL Glucose 175 H (74-99) mg/dL POC Glucose (mg/dL) 192 H (75-99) mg/dL Calcium 11.0 H (8.4-10.2) mg/dL Troponin I 1.700 H* (0.000-0.034) ng/mL Procalcitonin (0.02-0.09) ng/mL 12/11/19 Range/Units 17:03 Sodium (137-145) mmol/L Chloride (98-107) mmol/L Carbon Dioxide (22-30) mmol/L BUN (9-20) mg/dL Creatinine (0.66-1.25) mg/dL Glucose (74-99) mg/dL POC Glucose (mg/dL) 243 H (75-99) mg/dL Calcium (8.4-10.2) mg/dL Troponin I (0.000-0.034) ng/mL Procalcitonin (0.02-0.09) ng/mL Microbiology - Last 24 Hours (Table) 12/09/19 13:53 Blood Culture - Preliminary Blood No Growth after 48 hours
[2019-12-11 17:06] LABS: Glucose,Whole Blood 243 mg/dL (75-99)
--- NOTE | 2019-12-11 17:31 | PN ---
PROGRESS NOTE DATE OF SERVICE: 12/11/2019 REASON FOR FOLLOWUP: 1. C7 paraspinal abscess. 2. Question of pneumonia. INTERVAL HISTORY: The patient is currently afebrile. The patient is breathing comfortably. Patient denies having any chest pain. No significant cough or sputum production. No nausea, no vomiting, no abdominal pain or worsening pain to the leg area. PHYSICAL EXAMINATION: Blood pressure 129/83 with a pulse of 116, temperature 97.8, he is 95% on 4 L nasal cannula. General description is a middle-aged male, up in the bed in no distress. RESPIRATORY SYSTEM: Unlabored breathing with decreased breath sounds at the base, no wheeze. HEART: S1, S2. Regular rate and rhythm. ABDOMEN: Soft, no tenderness. LABS: BUN of 21, creatinine 1.85. Blood culture has been negative, no sputum has been collected. DIAGNOSTIC IMPRESSION AND PLAN: 1. Patient with C7-S1 and S2 status post surgical drainage in the middle of the hardware, cultures were positive for Staph epidermidis. The patient is on vancomycin, now with evidence of drainage. The patient's vanc has been discontinued. Patient currently covered with daptomycin to continue and monitor clinical course closely. 2. Patient with possible pneumonia, clinically not behaving as such. Covered with Zosyn to continue and monitor clinical course closely. MMODL / IJN: [id number] /
--- NOTE | 2019-12-11 18:30 | P.PN ---
Progress Note - Text Progress Note Date: 12/11/19 Chief Complaint: Tired History of presenting complaint: This is a 54-year-old patient who follows with Dr. thomas from [place]. Chronic stable medical conditions include diabetes mellitus type II on insulin pump.,GERD, hypertension, obstructive sleep apnea uses CPAP, chronic pancreatitis, bipolar disorder and chronic low back pain. 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 underwent cervical spine surgery by Dr. Shanks-on October 10 2019. Patient is here in November-took a fall with displacement of the internal fixation and graft at C6 to T1. Patient underwent surgery in October 30. With removal of hardware and revision fixation At multiple levels. Local abscess was cleaned out. Cultures growing Staphylococcus epidermidis. Has a cervical collar since then. Patient is brought in from the EMS from the rehab. Patient is found to be bit confused. Had oxygen saturation 88% and a blood glucose down to 66. In the ER he reported feeling weak and tired. Not sure about his oral intake. No fever reported. Admitted with acute non-Q-wave TN, acute congestive heart failure exacerbation, possible pneumonia. Put on IV Lasix. Therapeutic Lovenox dose. Today-less tired. Declining food. Antibiotic changed to daptomycin per ID. Review of systems: Was done for constitutional, cardiovascular, GI, pulmonary. relevant finding as above Active Medications Al Hydroxide/Mg Hydroxide (Mag Hydrox/Al Hydrox/Simeth 30 Ml Cup) 30 ml PO Q4H PRN PRN Reason: Constipation Albuterol/Ipratropium (Ipratropium-Albuterol 3 Ml Neb) 3 ml INHALATION RT-Q4H PRN PRN Reason: shortness of breath Last Admin: 12/10/19 15:54 Dose: 3 ml Documented by: Amlodipine Besylate (Amlodipine 5 Mg Tab) 5 mg PO DAILY@0900 [facility] Last Admin: 12/11/19 08:12 Dose: 5 mg Documented by: Cyclobenzaprine HCl (Cyclobenzaprine 5 Mg Tab) 5 mg PO TID@0600,1400,2200 [facility] Last Admin: 12/11/19 13:12 Dose: 5 mg Documented by: Duloxetine HCl (Duloxetine Hcl 30 Mg Mariah.) 30 mg PO BID@0900,2100 [facility] Last Admin: 12/11/19 08:12 Dose: 30 mg Documented by: Enoxaparin Sodium (Enoxaparin 100 Mg/Ml Syringe) 100 mg SQ Q12HR [facility] Last Admin: 12/11/19 08:19 Dose: 100 mg Documented by: Famotidine (Famotidine 20 Mg Tab) 20 mg PO BID@899,2099 [facility] Last Admin: 12/11/19 08:12 Dose: 20 mg Documented by: Fenofibrate (Fenofibrate 160 Mg Tab) 160 mg PO DAILY@09 [facility] Last Admin: 12/11/19 08:12 Dose: 160 mg Documented by: Ferrous Sulfate (Ferrous Sulfate 325 Mg Tab) 325 mg PO BID@799,2099 [facility] Last Admin: 12/11/19 08:12 Dose: 325 mg Documented by: Furosemide (Furosemide 10 Mg/Ml 10 Ml Vial) 60 mg IV Q8HR [facility] Last Admin: 12/11/19 16:06 Dose: 60 mg Documented by: Gabapentin (Gabapentin 300 Mg Cap) 300 mg PO Q12H [facility] Last Admin: 12/11/19 17:13 Dose: 300 mg Documented by: Gabapentin (Gabapentin 300 Mg Cap) 300 mg PO BID PRN PRN Reason: Pain Piperacillin Sod/Tazobactam (Sod 3.375 gm/ Sodium Chloride) 100 mls @ 25 mls/hr IVPB Q8HR [facility] Stop: 12/16/19 00:01 Last Admin: 12/11/19 16:06 Dose: 25 mls/hr Documented by: Daptomycin 600 mg/ Sodium (Chloride) 50 mls @ 100 mls/hr IVPB Q24HR [facility]; Protocol Last Admin: 12/11/19 08:23 Dose: 100 mls/hr Documented by: Insulin Aspart (Insulin Aspart (Novolog) 100 Unit/Ml Vial) 0 unit SQ ACHS [facility]; Protocol Last Admin: 12/11/19 17:13 Dose: 5 unit Documented by: Lamotrigine (Lamotrigine 100 Mg Tab) 200 mg PO BID@899,2099 [facility] Last Admin: 12/11/19 08:12 Dose: 200 mg Documented by: Magnesium Hydroxide (Magnesium Hydroxide 2,400 Mg/10 Ml Cup) 2,400 mg PO DAILY PRN PRN Reason: Constipation Metoprolol Tartrate (Metoprolol Tartrate 25 Mg Tab) 25 mg PO BID@899,2099 [facility] Last Admin: 12/11/19 08:12 Dose: 25 mg Documented by: Miscellaneous Information (Pneumonia Protocol Utilized 1 Each [facility]) 1 each PO ONCE PRN PRN Reason: Per Protocol Ondansetron HCl (Ondansetron 4 Mg Tab) 4 mg PO Q8HR PRN PRN Reason: Nausea And Vomiting Last Admin: 12/11/19 13:13 Dose: 4 mg Documented by: Oxycodone HCl (Oxycodone Er 20 Mg Tab.Er.12h) 20 mg PO Q12H [facility] Last Admin: 12/11/19 10:35 Dose: 20 mg Documented by: Quetiapine Fumarate (Quetiapine 200 Mg Tab) 200 mg PO HS@2100 [facility] Last Admin: 12/10/19 21:33 Dose: 200 mg Documented by: Senna/Docusate Sodium (Sennosides-Docusate Sodium 1 Each Tab) 4 each PO DAILY@0900 [facility] Last Admin: 12/11/19 08:12 Dose: 4 each Documented by: Tamsulosin HCl (Tamsulosin 0.4 Mg Cap.Er.24h) 0.4 mg PO HS@2100 [facility] Last Admin: 12/10/19 21:33 Dose: 0.4 mg Documented by: Trazodone HCl (Trazodone Hcl 100 Mg Tab) 100 mg PO HS@2100 [facility] Last Admin: 12/10/19 21:33 Dose: 100 mg Documented by: . Physical examination: VITAL SIGNS: 97.6, 103, 18, 132/35, 96% on 6 L GENERAL: Laying in bed, tired, but answered questions EYES: Pupils equal. Conjunctiva normal. NECK: J.Cervical collar HEART: First and second heart sounds are normal; no edema. LUNGS: Respiratory rate increased, diminished breath sounds mild wheezing ABDOMEN: Soft, no tenderness,, no guarding rigidity, liver spleen not palpable, no masses palpable. PSYCH: Answering questions NEUROLOGICAL: Cranial nerves grossly intact, moving all 4 limbs INVESTIGATIONS, reviewed in the clinical context: White count 3.9 bun 21 and creatinine 1.85 2-D echocardiogram-EF 60-65% Previous testing: White count 14.7 hemoglobin 8.5 platelets 328 potassium 4.2 bun 26 creatinine 1.56 Accu-Cheks 102, 78, 66 Troponin I 1.6, 2.7, 1.7 proBNP 1200 EKG tracing personally reviewed by me-normal sinus rhythm Chest x-ray film personally reviewed by me-pulmonary edema, can rule out infiltrate Previous testing: Creatinine 1.0 Assessment: -Acute non-Q wave myocardial infarction-to be managed conservatively -Possible pneumonia, suspect gram-negative organism -Acute congestive heart failure exacerbation-some improvement-on IV Lasix - October 10-C6 C7 T1 removal of bone fragments from fracture of C7, decompression fusion and plating-4 C7 fracture, cervical spine stenosis , myelopathy disc herniation: Now presented with trauma with Computed tomography scan of the spine showing dislocation of anterior cervical fusionand C7 increased kyphosis at C6-C7; fracture of the left C6 lamina-status post replacement and repair. -History of C7 epidural abscess that was cleaned. Cultures positive for Staphylococcus epidermidis. From previous admission -Diabetes mellitus type 2, uncontrolled with , hypoglycemia better -GERD -Essential hypertension -Obstructive sleep apnea uses a BiPAP machine -Bipolar disorder -Chronic low back pain -Obesity BMI 30.6 -COPD in a current smoker -chronic pancreatitis. -Acute kidney injury could be from vancomycin Plan: On daptomycin, IV Zosyn. IV Lasix. Patient rather sleepy. Cutback Neurontin to 300 mg daily at bedtime. DC Cymaryalta.
[2019-12-11 20:04] LABS: Glucose,Whole Blood 207 mg/dL (75-99)
[2019-12-11] MEDS: traZODone HCL 100 MG TAB PO SCH (21:36)
[2019-12-11] MEDS: TAMSULOSIN 0.4 MG CAP.ER.24H PO SCH (21:36)
[2019-12-11] MEDS: QUEtiapine 100 MG TAB PO SCH (22:49)
[2019-12-12] MEDS: FUROSEMIDE 10 MG/ML 10 ML VIAL IV SCH ×2 (00:53→09:25)
[2019-12-12] MEDS: PIPERACILLIN-TAZOBACTAM 3.375 GM in SODIUM CHLORIDE 0.9% 100 ML IVPB SCH ×4 (00:54→23:51)
[2019-12-12 06:27] LABS: Glucose,Whole Blood 176 mg/dL (75-99)
[2019-12-12] MEDS: CYCLOBENZAPRINE 5 MG TAB PO SCH ×3 (07:01→22:08)
[2019-12-12] MEDS: INSULIN ASPART (NovoLOG) 100 UNIT/ML VIAL SQ SCH ×4 (07:01→20:40)
[2019-12-12 07:52] LABS: Calcium 11.1 mg/dL (8.4-10.2); Potassium 3.2 mmol/L (3.5-5.1)
[2019-12-12] MEDS: IPRATROPIUM-ALBUTEROL 3 ML NEB INHALATION PRN ×3 (08:38→21:10)
[2019-12-12] MEDS: SENNOSIDES-DOCUSATE SODIUM 1 EACH TAB PO SCH (09:33)
[2019-12-12] MEDS: FERROUS SULFATE 325 MG TAB PO SCH ×2 (09:34→20:38)
[2019-12-12] MEDS: lamoTRIgine 100 MG TAB PO SCH ×2 (09:34→20:39)
[2019-12-12] MEDS: FENOFIBRATE 160 MG TAB PO SCH (09:34)
[2019-12-12] MEDS: FAMOTIDINE 20 MG TAB PO SCH ×2 (09:34→20:41)
[2019-12-12] MEDS: amLODIPine 5 MG TAB PO SCH (09:34)
[2019-12-12] MEDS: ENOXAPARIN 100 MG/ML SYRINGE SQ SCH ×2 (09:34→20:40)
[2019-12-12] MEDS: METOPROLOL TARTRATE 25 MG TAB PO SCH ×2 (09:34→20:38)
[2019-12-12] MEDS: oxyCODONE ER 20 MG TAB.ER.12H PO SCH ×2 (11:07→22:07)
[2019-12-12 11:28] LABS: Glucose,Whole Blood 174 mg/dL (75-99)
--- NOTE | 2019-12-12 12:37 | P.PN ---
Subjective Progress Note Date: 12/12/19 Principal diagnosis: Hypoxemia, shortness of breath, altered mentation 54-year-old white male patient of Dr. Wood with past medical history of hypertension, diabetes mellitus, obstructive sleep apnea on BiPAP, chronic back pain, chronic smoker, history of anxiety, depression, who was recently hospitalized from 10/30/2019 through 11/11/2019 when he came in for evaluation o f severe shoulder pain after she sustained a fall at home a few weeks following his cervical spine surgery on 10/11/2019 for traumatic T7 burst fracture. Computed tomography scan of the cervical spine revealed traumatic displacement of anterior cervical internal fixation from C6 to T1, and on 10/31/2019 patient underwent anterior cervical decompression and fusion of C6 through T1 extending up to C5 with revision corpectomy C7 with short cage extending from C6 through T1 and posterior cervical fusion of C5 through T2. Patient had an episode of chest pain during the last admission, was evaluated by cardiology, EKG and echocardiogram without significant findings, d-dimer was elevated, CTA chest was without evidence of pulmonary embolism. Patient was discharged to [facility]. Of note during his surgery. Patient was found to have a cervical epidural abscess positive for Staphylococcus epidermidis and he was discharged with a PICC line in place for vancomycin infusions for 6 weeks. On 12/09/2019 patient was brought into the emergency department for evaluation of altered mental status, and hypoxemia with O2 saturations of 88%, blood sugar was 66 patient was given half amp of glucose with improvement of his symptoms. His oral membranes are extremely dry, patient is unclear whether he has been eating or drinking well. He seems somewhat confused, he is currently on 5 L of oxygen, he has removed his oxygen, and he is desaturating into the low 80s, seems leth argic. Denies any fevers, denies any dyspnea. Chest x-ray showed patchy perihilar and basilar infiltrates with a concern for pneumonia. Brain CT showed no acute abnormality. EKG showed normal sinus rhythm. Labs showed a white blood cell count of 14.7, hemoglobin of 8.5, INR is 1.2, sodium is 134, potassium is 4.2, chloride is 97, CO2 31, BUN is 26, creatinine is 1.56, lactic acid 0.8, troponin is 1.650, proBNP is 1200, urinalysis without sign of infection. Current antibiotic coverage is in the form of azithromycin, Zosyn, and we resumed his vancomycin for recent cervical spine abscess. COVID 19 PCR was sent, pending at this time. Patient is afebrile, he is lethargic, but breathing is nonlabored, he is a poor historian, he is confused. On 12/10/2019 patient seen in follow-up on selective care unit, he is much more awake today, overnight she was the BiPAP with settings of 12/5 and FiO2 of 45%, he is currently on 4 L of oxygen, he sitting up on the edge of the bed, in some questions appropriately, denies any acute distress, his been afebrile overnight. He was started on IV Lasix, continues on antibiotics including vancomycin and Zosyn, no hemoptysis, no completed chest pain, echocardiogram is pending, patient was started on therapeutic doses of Lovenox, lung sounds are diminished, with crackles in the mid to bilateral lower lobes. His troponin is 2.73. Cardiology consultation is pending, coronavirus was negative On 12/11/2019 patient seen in follow-up on selective care unit, he is awake and alert, resting comfortably in bed, he is currently on 6 L of oxygen pulse ox 96%, vital signs stable, afebrile, breathing is nonlabored, no wheezing, no rhonchi, no significant cough or congestion. Much more awake on today's exam, his been wearing his BiPAP at night. Today's chest x-ray shows stable alveolar and interstitial edema, despite the diuretics. Afebrile, ID service is following, her cultures have shown no growth, current antibiotic coverage is in the form of daptomycin and Zosyn. His swallowing evaluation was within normal limits. The patient is seen today 12/12/2019 in follow-up on the selective care unit. He is currently sitting up at the bedside. Awake and alert in no acute distress. Breathing a bit easier today compared to yesterday. Maintaining O2 saturations in the 90s on 4 L high flow nasal cannula. He's been afebrile. Blood culture reveals no growth to date. Sodium 135. Potassium 3.2. Creatinine 2.36. He is continued on Zosyn and daptomycin. Remains on bronchodilators. Objective - Vital Signs Vital signs: Vital Signs Temp 97.6 F 12/12/19 11:04 Pulse 99 12/12/19 11:04 Resp 18 12/12/19 11:04 BP 133/75 12/12/19 11:04 Pulse Ox 94 L 12/12/19 11:04 Intake & Output 12/11/19 12/12/19 12/12/19 18:59 06:59 18:59 Intake Total 0 240 Output Total 275 650 Balance -275 -650 240 Weight 96.5 kg Intake: Oral 0 240 Output: Urine 275 650 - Exam GENERAL EXAM: Alert, very pleasant, 54-year-old white male, appears older than stated age, on 4 L of oxygen with pulse ox of 94%, comfortable in no apparent distress. HEAD: Normocephalic/atraumatic. EYES: Normal reaction of pupils, equal size. Conjunctiva pink, sclera white. NOSE: Clear with pink turbinates. THROAT: No erythema or exudates. NECK: No masses, no JVD, no thyroid enlargement, no adenopathy. Posterior neck incision is clean dry and intact. Patient has a neck collar in place CHEST: No chest wall deformity. Symmetrical expansion. LUNGS: Equal air entry with coarse crackles at bilateral lower and mid lungs CVS: Regular rate and rhythm, normal S1 and S2, no gallops, no murmurs, no rubs ABDOMEN: Soft, nontender. No hepatosplenomegaly, normal bowel sounds, no guarding or rigidity. EXTREMITIES: No clubbing, no edema, no cyanosis, 2+ pulses and upper and lower extremities. MUSCULOSKELETAL: Muscle strength and tone normal. SPINE: No scoliosis or deformity SKIN: No rashes CENTRAL NERVOUS SYSTEM: Alert and oriented -3. No focal deficits, tone is normal in all 4 extremities. PSYCHIATRIC: Alert and oriented -3. Appropriate affect. Intact judgment and insight - Labs CBC & Chem 7: 12/10/19 01:30 12/12/19 07:09 Labs: Abnormal Lab Results - Last 24 Hours (Table) 12/11/19 12/11/19 12/12/19 Range/Units 17:03 20:01 06:24 Sodium (137-145) mmol/L Potassium (3.5-5.1) mmol/L Chloride (98-107) mmol/L Carbon Dioxide (22-30) mmol/L BUN (9-20) mg/dL Creatinine (0.66-1.25) mg/dL Glucose (74-99) mg/dL POC Glucose (mg/dL) 243 H 207 H 176 H (75-99) mg/dL Calcium (8.4-10.2) mg/dL 12/12/19 12/12/19 Range/Units 07:09 11:27 Sodium 135 L (137-145) mmol/L Potassium 3.2 L (3.5-5.1) mmol/L Chloride 87 L (98-107) mmol/L Carbon Dioxide 38 H (22-30) mmol/L BUN 26 H (9-20) mg/dL Creatinine 2.36 H (0.66-1.25) mg/dL Glucose 160 H (74-99) mg/dL POC Glucose (mg/dL) 174 H (75-99) mg/dL Calcium 11.1 H (8.4-10.2) mg/dL Microbiology - Last 24 Hours (Table) 12/09/19 13:53 Blood Culture - Preliminary Blood No Growth after 48 hours Assessment and Plan Assessment: #1. Acute on chronic hypoxic respiratory failure related to possibility of pneumonia, chest x-ray showed patchy perihilar and basilar infiltrates, rule out possibility of aspiration #2. Altered mental status likely related to metabolic encephalopathy, improved #3. Elevated troponin, EKG without significant findings, recent echocardiogram showed preserved EF of 55-60%, no significant valvular disease, PA pressure of 26.3 mmHg. Cardiology consultations pending #4. Recent hospitalization for cervical spine epidural abscess of anterior cervical C7, and patient was discharged to ECF on the vancomycin infusions for 6 weeks and which he continues #5. History of cervical myelopathy is status post surgical revision of C6 through T1 and corpectomy of C7 due to trauma, following a fall. Patient had open reduction and internal fixation carpectomy of C7 and fusion of C6 to T1 for recent C7 burst fracture on 10/11/2019 #6. Acute kidney injury, worsening related to diuretic therapy #7. Obstructive sleep apnea on BiPAP therapy at home #8. Chronic smoker, unknown whether the patient is still smoking #9. Suspect underlying history of COPD #10. Diabetes mellitus type 2 #11. Hypertension #12. History of pancreatitis #13. History of anxiety, depression Plan: The patient was seen and evaluated by Dr. Bryant He is improved today compared to yesterday Continue the current treatment plan Titrate down the FiO2 as tolerated Chest x-ray in a.m. We'll continue to follow I, the cosigning physician, performed a history & physical examination of the patient. Lungs sounds with coarse crackles in the bilateral bases. Maintaining good O2 saturations in the 90s on 4 L high flow nasal cannula. I discussed the assessment and plan of care with my nurse practitioner, Isela Prasad. I attest to the above note as dictated by her.
--- NOTE | 2019-12-12 16:23 | P.PN ---
Subjective History of presenting complaint:from records This is a 54-year-old patient who follows with Dr. thomas from [place]. Chronic stable medical conditions include diabetes mellitus type II on insulin pump.,GERD, hypertension, obstructive sleep apnea uses CPAP, chronic pancreatitis, bipolar disorder and chronic low back pain. Known, foraminal s tenosis at C6-C7 and compression fractures C7 with left arm weakness or necropathy. underwent cervical spine surgery by Dr. Shanks-on October 10 2019. Patient is here in November-took a fall with displacement of the internal fixation and graft at C6 to T1. Patient underwent surgery in October 30. With removal of hardware and revision fixation At multiple levels. Local abscess was cleaned out. Cultures growing Staphylococcus epidermidis. Has a cervical collar since then. Patient is brought in from the EMS from the rehab. Patient is found to be bit confused. Had oxygen saturation 88% and a blood glucose down to 66. In the ER he reported feeling weak and tired. Not sure about his oral intake. No fever reported. Admitted with acute non-Q-wave SC, acute congestive heart failure exacerbation, possible pneumonia. Put on IV Lasix. Therapeutic Lovenox dose. Today-less tired. Declining food. Antibiotic changed to daptomycin per ID. subjective 12/12/2019 this is a pleasant 54 years old male with multiple medical problems admitted for pneumonia and altered mental status, Today he is more awake and alert, is still complaining from some dyspnea and occasional cough.no significant chest pain.oxygen saturation is 92% on 4 L oxygen. Nasal cannula. Kolby Vitas looks stable. Creatinine is went up to 2.3,it was 1.09 last month. patientis on daptomycin and Zosyn as per ID team recommendation. Pulmonary team on the case. Consult nephrology team. Objective - Vital Signs Vital signs: Vital Signs Temp 98.0 F 12/12/19 15:52 Pulse 99 12/12/19 15:52 Resp 18 12/12/19 11:04 BP 135/77 12/12/19 15:52 Pulse Ox 92 L 12/12/19 15:52 Intake & Output 12/11/19 12/12/19 12/12/19 18:59 06:59 18:59 Intake Total 0 390 Output Total 275 650 600 Balance -275 -650 -210 Weight 96.5 kg Intake: IV 150 DAPTOmycin 600 mg In 50 Sodium Chloride 0.9% 50 ml @ 100 mls/hr IVPB Q24HR [facility] Rx#:[id number] Piperacillin-Tazobactam 3 100 .375 gm In Sodium Chloride 0.9% 100 ml @ 25 mls/hr IVPB Q8HR [facility] Rx# :[id number] Oral 0 240 Output: Urine 275 650 600 - Exam GENERAL: The patient is alert and oriented x3, not in any acute distress. Well developed, well nourished. HEENT: Pupils are round and equally reacting to light. EOMI. No scleral icterus. No conjunctival pallor. Normocephalic, atraumatic. No pharyngeal erythema. No thyromegaly. CARDIOVASCULAR: S1 and S2 present. No murmurs, rubs, or gallops. PULMONARY: Chest is clear to auscultation, no wheezing or crackles. ABDOMEN: Soft, nontender, nondistended, normoactive bowel sounds. No palpable organomegaly. MUSCULOSKELETAL: No joint swelling or deformity. EXTREMITIES: No cyanosis, clubbing, or pedal edema. NEUROLOGICAL: Gross neurological examination did not reveal any focal deficits. SKIN: No rashes. no petechiae. - Labs CBC & Chem 7: 12/10/19 01:30 12/12/19 07:09 Labs: Abnormal Lab Results - Last 24 Hours (Table) 12/11/19 12/11/19 12/12/19 Range/Units 17:03 20:01 06:24 Sodium (137-145) mmol/L Potassium (3.5-5.1) mmol/L Chloride (98-107) mmol/L Carbon Dioxide (22-30) mmol/L BUN (9-20) mg/dL Creatinine (0.66-1.25) mg/dL Glucose (74-99) mg/dL POC Glucose (mg/dL) 243 H 207 H 176 H (75-99) mg/dL Calcium (8.4-10.2) mg/dL 12/12/19 12/12/19 Range/Units 07:09 11:27 Sodium 135 L (137-145) mmol/L Potassium 3.2 L (3.5-5.1) mmol/L Chloride 87 L (98-107) mmol/L Carbon Dioxide 38 H (22-30) mmol/L BUN 26 H (9-20) mg/dL Creatinine 2.36 H (0.66-1.25) mg/dL Glucose 160 H (74-99) mg/dL POC Glucose (mg/dL) 174 H (75-99) mg/dL Calcium 11.1 H (8.4-10.2) mg/dL Microbiology - Last 24 Hours (Table) 12/09/19 13:53 Blood Culture - Preliminary Blood No Growth after 72 hours Assessment and Plan Assessment: -Possible pneumonia, suspect gram-negative organism -Acute congestive heart failure exacerbation-some improvement-on IV Lasix -acute kidney injury -elevated troponin, mostly secondary to renal disease and infectious process. Cannot rule out coronary artery disease -recent history of C7 anterior cervical epidural abscess, patient was discharged to [facility] on vancomycin for 6 weeks. He continue on antibiotics daptomycin and Zosyn currently. -Diabetes mellitus type 2, uncontrolled with , hypoglycemia . better -GERD -Essential hypertension -Obstructive sleep apnea uses a BiPAP machine -Bipolar disorder -Chronic low back pain -Obesity BMI 30.6 -COPD in a current smoker -chronic pancreatitis. -Acute kidney injury could be from vancomycin Plan: continue with antibiotics as per infectious disease recommendation, currently on daptomycin and Zosyn discontinue IV Lasix 60 mg IV every 8 hours, Monitor creatinine and consult optician apprentice dispensing team continue to monitor oxygen level, continue with bronchodilator and oxygen as needed. Pulmonary of the case Elevated troponin,cardiology on the case and recommended stress test on Saturday. No aspirin on Plavix currently. Continue with Lovenox therapeutic dose DVT prophylaxis: Lovenox GI prophylaxis Pepcid Prognosis is guarded
[2019-12-12 17:08] LABS: Glucose,Whole Blood 173 mg/dL (75-99)
[2019-12-12] MEDS: POTASSIUM CHLORIDE ER 20 MEQ TAB.ER PO SCH ×2 (18:58→20:39)
[2019-12-12] MEDS ORDERED: POTASSIUM CHLORIDE 10 MEQ in WATER FOR INJECTION 1 100ML.BAG IVPB SCH (19:00)
[2019-12-12 20:04] LABS: Glucose,Whole Blood 174 mg/dL (75-99)
--- NOTE | 2019-12-12 20:23 | PN ---
PROGRESS NOTE DATE OF SERVICE: 12/12/2019 REASON FOR FOLLOWUP: 1. C7 paraspinal abscess. 2. Question of pneumonia. INTERVAL HISTORY: The patient is currently afebrile. The patient is breathing comfortably. Pain to the neck area is currently controlled. No chest pain, shortness of breath or cough. No abdominal pain or diarrhea. PHYSICAL EXAMINATION: Blood pressure 135/77 with a pulse of 84, temperature 98. He is 92% on 4 L nasal cannula. General description is a middle-aged male lying in bed in no distress. Respiratory system: Unlabored breathing, clear to auscultation anteriorly. Heart S1, S2. Regular rate and rhythm. ABDOMEN: Soft, no tenderness. LABS: BUN of 26, creatinine is 2.36. Blood culture has been negative. DIAGNOSTIC IMPRESSION AND PLAN: Patient with C7 paraspinal abscess status post drainage. Culture positive for Staph epidermitis. Admitted to the hospital with mental status changes and seemed to have slight worsening of his kidney function. Patient has been switched to daptomycin which will be continued and will monitor clinical course closely. MMODL / IJN: [id number] /
[2019-12-12] MEDS: TAMSULOSIN 0.4 MG CAP.ER.24H PO SCH (20:38)
[2019-12-12] MEDS: traZODone HCL 100 MG TAB PO SCH (20:38)
[2019-12-12] MEDS: QUEtiapine 100 MG TAB PO SCH (20:38)
[2019-12-12] MEDS: GABAPENTIN 300 MG CAP PO SCH (20:39)
[2019-12-13 06:39] LABS: Glucose,Whole Blood 177 mg/dL (75-99)
[2019-12-13] MEDS: CYCLOBENZAPRINE 5 MG TAB PO SCH ×3 (06:42→21:41)
[2019-12-13] MEDS: INSULIN ASPART (NovoLOG) 100 UNIT/ML VIAL SQ SCH ×4 (06:42→21:41)
[2019-12-13] MEDS ORDERED: Potassium Replacement Protocol 1 EACH MISC MISCELLANE PRN (07:09)
--- NOTE | 2019-12-13 07:16 | XR ---
EXAMINATION TYPE: XR chest 1V DATE OF EXAM: 12/13/2019 HISTORY: Shortness of breath. COMPARISON: 12/11/2019 TECHNIQUE: Single view of the chest is submitted. FINDINGS: Demonstrated are scattered senescent parenchymal change. Persistent prominence of the pulmonary interstitium. Right infrahilar infiltrate persists although is improving. Small effusions suggested. The heart is stable. Hilar and mediastinal structures are within normal limits. Degenerative changes are seen of the dorsal spine. IMPRESSION: 1. Persistent prominence of the pulmonary interstitium. Right infrahilar infiltrate persists althoug h is improving. Small effusions suggested.
[2019-12-13] MEDS: FERROUS SULFATE 325 MG TAB PO SCH ×2 (07:54→21:41)
[2019-12-13] MEDS: METOPROLOL TARTRATE 25 MG TAB PO SCH ×2 (07:54→21:41)
[2019-12-13] MEDS: FAMOTIDINE 20 MG TAB PO SCH (07:54)
[2019-12-13] MEDS: lamoTRIgine 100 MG TAB PO SCH ×2 (07:54→21:41)
[2019-12-13] MEDS: FENOFIBRATE 160 MG TAB PO SCH (07:54)
[2019-12-13] MEDS: amLODIPine 5 MG TAB PO SCH (07:54)
[2019-12-13] MEDS: ENOXAPARIN 100 MG/ML SYRINGE SQ SCH (07:55)
[2019-12-13] MEDS: POTASSIUM CHLORIDE ER 20 MEQ TAB.ER PO SCH ×2 (08:06→09:48)
[2019-12-13] MEDS: SENNOSIDES-DOCUSATE SODIUM 1 EACH TAB PO SCH (08:06)
[2019-12-13] MEDS: IPRATROPIUM-ALBUTEROL 3 ML NEB INHALATION PRN ×2 (08:19→15:10)
[2019-12-13 08:30] LABS: Basophils # (A) 0.1 k/uL (0-0.2); Basophils % (A) 1 %; Eosinophils # (A) 0.4 k/uL (0-0.7); Eosinophils % (A) 4 %; HCT 32.6 % (39.0-53.0); HGB 10.2 gm/dL (13.0-17.5); Hypochromasia Moderate; Lymphocytes # (A) 1.1 k/uL (1.0-4.8); Lymphocytes % (A) 9 %; MCH 26.9 pg (25.0-35.0); MCHC 31.2 g/dL (31.0-37.0); MCV 86.3 fL (80.0-100.0); Mean Platelet Volume 6.8; Monocytes # (A) 0.5 k/uL (0-1.0); Monocytes % (A) 4 %; Neutrophils # (A) 10.4 k/uL (1.3-7.7); Neutrophils % (A) 82 %; Platelet Count 410 k/uL (150-450); RBC 3.78 m/uL (4.30-5.90); RDW 13.9 % (11.5-15.5); WBC 12.6 k/uL (3.8-10.6)
[2019-12-13 08:43] LABS: Calcium 11.8 mg/dL (8.4-10.2)
[2019-12-13] MEDS: PIPERACILLIN-TAZOBACTAM 3.375 GM in SODIUM CHLORIDE 0.9% 100 ML IVPB SCH ×2 (09:56→15:35)
[2019-12-13] MEDS: SODIUM CHLORIDE 0.9% 1,000 ML IV SCH (09:57)
[2019-12-13] MEDS: oxyCODONE ER 20 MG TAB.ER.12H PO SCH (11:34)
--- NOTE | 2019-12-13 12:05 | P.PN ---
Subjective Progress Note Date: 12/13/19 Principal diagnosis: Hypoxemia, shortness of breath, altered mentation 54-year-old white male patient of Dr. Wood with past medical history of hypertension, diabetes mellitus, obstructive sleep apnea on BiPAP, chronic back pain, chronic smoker, history of anxiety, depression, who was recently hospitalized from 10/30/2019 through 11/11/2019 when he came in for evaluation o f severe shoulder pain after she sustained a fall at home a few weeks following his cervical spine surgery on 10/11/2019 for traumatic T7 burst fracture. Computed tomography scan of the cervical spine revealed traumatic displacement of anterior cervical internal fixation from C6 to T1, and on 10/31/2019 patient underwent anterior cervical decompression and fusion of C6 through T1 extending up to C5 with revision corpectomy C7 with short cage extending from C6 through T1 and posterior cervical fusion of C5 through T2. Patient had an episode of chest pain during the last admission, was evaluated by cardiology, EKG and echocardiogram without significant findings, d-dimer was elevated, CTA chest was without evidence of pulmonary embolism. Patient was discharged to [facility]. Of note during his surgery. Patient was found to have a cervical epidural abscess positive for Staphylococcus epidermidis and he was discharged with a PICC line in place for vancomycin infusions for 6 weeks. On 12/09/2019 patient was brought into the emergency department for evaluation of altered mental status, and hypoxemia with O2 saturations of 88%, blood sugar was 66 patient was given half amp of glucose with improvement of his symptoms. His oral membranes are extremely dry, patient is unclear whether he has been eating or drinking well. He seems somewhat confused, he is currently on 5 L of oxygen, he has removed his oxygen, and he is desaturating into the low 80s, seems leth argic. Denies any fevers, denies any dyspnea. Chest x-ray showed patchy perihilar and basilar infiltrates with a concern for pneumonia. Brain CT showed no acute abnormality. EKG showed normal sinus rhythm. Labs showed a white blood cell count of 14.7, hemoglobin of 8.5, INR is 1.2, sodium is 134, potassium is 4.2, chloride is 97, CO2 31, BUN is 26, creatinine is 1.56, lactic acid 0.8, troponin is 1.650, proBNP is 1200, urinalysis without sign of infection. Current antibiotic coverage is in the form of azithromycin, Zosyn, and we resumed his vancomycin for recent cervical spine abscess. COVID 19 PCR was sent, pending at this time. Patient is afebrile, he is lethargic, but breathing is nonlabored, he is a poor historian, he is confused. On 12/10/2019 patient seen in follow-up on selective care unit, he is much more awake today, overnight she was the BiPAP with settings of 12/5 and FiO2 of 45%, he is currently on 4 L of oxygen, he sitting up on the edge of the bed, in some questions appropriately, denies any acute distress, his been afebrile overnight. He was started on IV Lasix, continues on antibiotics including vancomycin and Zosyn, no hemoptysis, no completed chest pain, echocardiogram is pending, patient was started on therapeutic doses of Lovenox, lung sounds are diminished, with crackles in the mid to bilateral lower lobes. His troponin is 2.73. Cardiology consultation is pending, coronavirus was negative On 12/11/2019 patient seen in follow-up on selective care unit, he is awake and alert, resting comfortably in bed, he is currently on 6 L of oxygen pulse ox 96%, vital signs stable, afebrile, breathing is nonlabored, no wheezing, no rhonchi, no significant cough or congestion. Much more awake on today's exam, his been wearing his BiPAP at night. Today's chest x-ray shows stable alveolar and interstitial edema, despite the diuretics. Afebrile, ID service is following, her cultures have shown no growth, current antibiotic coverage is in the form of daptomycin and Zosyn. His swallowing evaluation was within normal limits. The patient is seen today 12/12/2019 in follow-up on the selective care unit. He is currently sitting up at the bedside. Awake and alert in no acute distress. Breathing a bit easier today compared to yesterday. Maintaining O2 saturations in the 90s on 4 L high flow nasal cannula. He's been afebrile. Blood culture reveals no growth to date. Sodium 135. Potassium 3.2. Creatinine 2.36. He is continued on Zosyn and daptomycin. Remains on bronchodilators. The patient is seen today 12/13/2019 in follow-up on the selective care unit. He is currently resting comfortably in bed. Awake and alert in no acute d istress. He denies any worsening shortness of breath, cough or congestion. He is maintaining good O2 saturation in the 90s on 4 L per nasal cannula. He does desaturate into the 70s on room air. He's afebrile. Blood culture reveals no growth. White count 12.6. Hemoglobin 10.2. Sodium 1:30. Potassium 4.0. Creatinine 2.81. He remains on DuoNeb inhalations, daptomycin, Zosyn. Chest x- ray reveals persistent prominence of pulmonary interstitium. Right infrahilar infiltrate persists although is improving. Small effusions. Objective - Vital Signs Vital signs: Vital Signs Temp 97.9 F 12/13/19 11:31 Pulse 104 H 12/13/19 11:31 Resp 16 12/13/19 11:31 BP 141/72 12/13/19 11:31 Pulse Ox 75 L 12/13/19 11:31 Intake & Output 12/12/19 12/13/19 12/13/19 18:59 06:59 18:59 Intake Total 390 100 Output Total 600 400 400 Balance -210 -300 -400 Weight 96.3 kg Intake: IV 150 DAPTOmycin 600 mg In 50 Sodium Chloride 0.9% 50 ml @ 100 mls/hr IVPB Q24HR [facility] Rx#:[id number] Piperacillin-Tazobactam 3 100 .375 gm In Sodium Chloride 0.9% 100 ml @ 25 mls/hr IVPB Q8HR [facility] Rx# :[id number] Oral 240 100 Output: Urine 600 400 400 Other: # Voids 0 - Exam GENERAL EXAM: Alert, very pleasant, 54-year-old white male, appears older than stated age, on 4 L of oxygen with pulse ox of 91%, comfortable in no apparent distress. HEAD: Normocephalic/atraumatic. EYES: Normal reaction of pupils, equal size. Conjunctiva pink, sclera white. NOSE: Clear with pink turbinates. THROAT: No erythema or exudates. NECK: No masses, no JVD, no thyroid enlargement, no adenopathy. Posterior neck incision is clean dry and intact. Patient has a neck collar in place CHEST: No chest wall deformity. Symmetrical expansion. LUNGS: Equal air entry with coarse crackles at bilateral lower and mid lungs CVS: Regular rate and rhythm, normal S1 and S2, no gallops, no murmurs, no rubs ABDOMEN: Soft, nontender. No hepatosplenomegaly, normal bowel sounds, no guarding or rigidity. EXTREMITIES: No clubbing, no edema, no cyanosis, 2+ pulses and upper and lower extremities. MUSCULOSKELETAL: Muscle strength and tone normal. SPINE: No scoliosis or deformity SKIN: No rashes CENTRAL NERVOUS SYSTEM: Alert and oriented -3. No focal deficits, tone is normal in all 4 extremities. PSYCHIATRIC: Alert and oriented -3. Appropriate affect. Intact judgment and insight - Labs CBC & Chem 7: 12/13/19 08:17 12/13/19 08:17 Labs: Abnormal Lab Results - Last 24 Hours (Table) 12/12/19 12/12/19 12/13/19 Range/Units 17:06 20:02 01:33 WBC (3.8-10.6) k/uL RBC (4.30-5.90) m/uL Hgb (13.0-17.5) gm/dL Hct (39.0-53.0) % Neutrophils # (1.3-7.7) k/uL Potassium 3.4 L (3.5-5.1) mmol/L Chloride (98-107) mmol/L Carbon Dioxide (22-30) mmol/L BUN (9-20) mg/dL Creatinine (0.66-1.25) mg/dL Glucose (74-99) mg/dL POC Glucose (mg/dL) 173 H 174 H (75-99) mg/dL Calcium (8.4-10.2) mg/dL 12/13/19 12/13/19 12/13/19 Range/Units 06:36 08:17 08:17 WBC 12.6 H (3.8-10.6) k/uL RBC 3.78 L (4.30-5.90) m/uL Hgb 10.2 L (13.0-17.5) gm/dL Hct 32.6 L (39.0-53.0) % Neutrophils # 10.4 H (1.3-7.7) k/uL Potassium (3.5-5.1) mmol/L Chloride 89 L (98-107) mmol/L Carbon Dioxide 38 H (22-30) mmol/L BUN 33 H (9-20) mg/dL Creatinine 2.81 H (0.66-1.25) mg/dL Glucose 178 H (74-99) mg/dL POC Glucose (mg/dL) 177 H (75-99) mg/dL Calcium 11.8 H (8.4-10.2) mg/dL Microbiology - Last 24 Hours (Table) 12/09/19 13:53 Blood Culture - Preliminary Blood No Growth after 72 hours Assessment and Plan Assessment: #1. Acute on chronic hypoxic respiratory failure related to possibility of p neumonia, chest x-ray showed patchy perihilar and basilar infiltrates, rule out possibility of aspiration, remains on Zosyn and daptomycin #2. Altered mental status likely related to metabolic encephalopathy, improved #3. Elevated troponin, EKG without significant findings, recent echocardiogram showed preserved EF of 55-60%, no significant valvular disease, PA pressure of 26.3 mmHg. Cardiology consultations pending #4. Recent hospitalization for cervical spine epidural abscess of anterior cervical C7, and patient was discharged to ECF on the vancomycin infusions for 6 weeks and which he continues #5. History of cervical myelopathy is status post surgical revision of C6 through T1 and corpectomy of C7 due to trauma, following a fall. Patient had open reduction and internal fixation carpectomy of C7 and fusion of C6 to T1 for recent C7 burst fracture on 10/11/2019 #6. Acute kidney injury, worsening related to diuretic therapy #7. Obstructive sleep apnea on BiPAP therapy at home #8. Chronic smoker, unknown whether the patient is still smoking #9. Suspect underlying history of COPD #10. Diabetes mellitus type 2 #11. Hypertension #12. History of pancreatitis #13. History of anxiety, depression Plan: The patient was seen and evaluated by Dr. Bryant Chest x-ray and labs reviewed He has been slow to progress Continue the current treatment plan Titrate down the FiO2 as tolerated We'll continue to follow I, the cosigning physician, performed a history & physical examination of the patient. Lungs sounds with coarse crackles in the bilateral bases. Maintaining good O2 saturations in the 90s on 4 L high flow nasal cannula. I discussed the assessment and plan of care with my nurse practitioner, Isela Prasad. I attest to the above note as dictated by her.
[2019-12-13 12:06] LABS: Glucose,Whole Blood 222 mg/dL (75-99)
--- NOTE | 2019-12-13 12:46 | P.PN ---
Subjective History of presenting complaint:from records This is a 54-year-old patient who follows with Dr. thomas from [place]. Chronic stable medical conditions include diabetes mellitus type II on insulin pump.,GERD, hypertension, obstructive sleep apnea uses CPAP, chronic pancreatitis, bipolar disorder and chronic low back pain. Known, foraminal s tenosis at C6-C7 and compression fractures C7 with left arm weakness or necropathy. underwent cervical spine surgery by Dr. Shanks-on October 10 2019. Patient is here in November-took a fall with displacement of the internal fixation and graft at C6 to T1. Patient underwent surgery in October 30. With removal of hardware and revision fixation At multiple levels. Local abscess was cleaned out. Cultures growing Staphylococcus epidermidis. Has a cervical collar since then. Patient is brought in from the EMS from the rehab. Patient is found to be bit confused. Had oxygen saturation 88% and a blood glucose down to 66. In the ER he reported feeling weak and tired. Not sure about his oral intake. No fever reported. Admitted with acute non-Q-wave PA, acute congestive heart failure exacerbation, possible pneumonia. Put on IV Lasix. Therapeutic Lovenox dose. Today-less tired. Declining food. Antibiotic changed to daptomycin per ID. subjective 12/12/2019 this is a pleasant 54 years old male with multiple medical problems admitted for pneumonia and altered mental status, Today he is more awake and alert, is still complaining from some dyspnea and occasional cough.no significant chest pain.oxygen saturation is 92% on 4 L oxygen. Nasal cannula. Kolby Vitas looks stable. Creatinine is went up to 2.3,it was 1.09 last month. patientis on daptomycin and Zosyn as per ID team recommendation. Pulmonary team on the case. Consult nephrology team. 12/13/2019 Patient still have her collar and a Place, his breathing quietly and with no coughing. However on 4 L oxygen via high flow nasal cannula. He was saturating 75% on room air this morning. No abdominal pain, no change in bowel habits.WBCs trending down to 12.6 K,creatinine is up to 2.8 Chest x-ray: Persistent right infrahilar infiltrate Objective - Vital Signs Vital signs: Vital Signs Temp 97.9 F 12/13/19 11:31 Pulse 104 H 12/13/19 11:31 Resp 16 12/13/19 12:00 BP 141/72 12/13/19 11:31 Pulse Ox 91 L 12/13/19 12:02 Intake & Output 12/12/19 12/13/19 12/13/19 18:59 06:59 18:59 Intake Total 390 100 Output Total 600 400 400 Balance -210 -300 -400 Weight 96.3 kg Intake: IV 150 DAPTOmycin 600 mg In 50 Sodium Chloride 0.9% 50 ml @ 100 mls/hr IVPB Q24HR [facility] Rx#:[id number] Piperacillin-Tazobactam 3 100 .375 gm In Sodium Chloride 0.9% 100 ml @ 25 mls/hr IVPB Q8HR [facility] Rx# :[id number] Oral 240 100 Output: Urine 600 400 400 Other: # Voids 0 - Exam GENERAL: The patient is alert and oriented x3, not in any acute distress. Well developed, well nourished. HEENT: Pupils are round and equally reacting to light. EOMI. No scleral icterus. No conjunctival pallor. Normocephalic, atraumatic. No pharyngeal erythema. No thyromegaly. CARDIOVASCULAR: S1 and S2 present. No murmurs, rubs, or gallops. PULMONARY: Chest is clear to auscultation, no wheezing or crackles. ABDOMEN: Soft, nontender, nondistended, normoactive bowel sounds. No palpable organomegaly. MUSCULOSKELETAL: No joint swelling or deformity. EXTREMITIES: No cyanosis, clubbing, or pedal edema. NEUROLOGICAL: Gross neurological examination did not reveal any focal deficits. SKIN: No rashes. no petechiae. - Labs CBC & Chem 7: 12/13/19 08:17 12/13/19 08:17 Labs: Abnormal Lab Results - Last 24 Hours (Table) 12/12/19 12/12/19 12/13/19 Range/Units 17:06 20:02 01:33 WBC (3.8-10.6) k/uL RBC (4.30-5.90) m/uL Hgb (13.0-17.5) gm/dL Hct (39.0-53.0) % Neutrophils # (1.3-7.7) k/uL Potassium 3.4 L (3.5-5.1) mmol/L Chloride (98-107) mmol/L Carbon Dioxide (22-30) mmol/L BUN (9-20) mg/dL Creatinine (0.66-1.25) mg/dL Glucose (74-99) mg/dL POC Glucose (mg/dL) 173 H 174 H (75-99) mg/dL Calcium (8.4-10.2) mg/dL 12/13/19 12/13/19 12/13/19 Range/Units 06:36 08:17 08:17 WBC 12.6 H (3.8-10.6) k/uL RBC 3.78 L (4.30-5.90) m/uL Hgb 10.2 L (13.0-17.5) gm/dL Hct 32.6 L (39.0-53.0) % Neutrophils # 10.4 H (1.3-7.7) k/uL Potassium (3.5-5.1) mmol/L Chloride 89 L (98-107) mmol/L Carbon Dioxide 38 H (22-30) mmol/L BUN 33 H (9-20) mg/dL Creatinine 2.81 H (0.66-1.25) mg/dL Glucose 178 H (74-99) mg/dL POC Glucose (mg/dL) 177 H (75-99) mg/dL Calcium 11.8 H (8.4-10.2) mg/dL 12/13/19 Range/Units 12:04 WBC (3.8-10.6) k/uL RBC (4.30-5.90) m/uL Hgb (13.0-17.5) gm/dL Hct (39.0-53.0) % Neutrophils # (1.3-7.7) k/uL Potassium (3.5-5.1) mmol/L Chloride (98-107) mmol/L Carbon Dioxide (22-30) mmol/L BUN (9-20) mg/dL Creatinine (0.66-1.25) mg/dL Glucose (74-99) mg/dL POC Glucose (mg/dL) 222 H (75-99) mg/dL Calcium (8.4-10.2) mg/dL Microbiology - Last 24 Hours (Table) 12/09/19 13:53 Blood Culture - Preliminary Blood No Growth after 72 hours Assessment and Plan Assessment: -Possible pneumonia, suspect gram-negative organism -Acute congestive heart failure exacerbation-some improvement-on IV Lasix -acute kidney injury -elevated troponin, mostly secondary to renal disease and infectious process. Cannot rule out coronary artery disease -recent history of C7 anterior cervical epidural abscess, patient was discharged to ECF on vancomycin for 6 weeks. He continue on antibiotics daptomycin and Zosyn currently. -Diabetes mellitus type 2, uncontrolled with , hypoglycemia . better -GERD -Essential hypertension -Obstructive sleep apnea uses a BiPAP machine -Bipolar disorder -Chronic low back pain -Obesity BMI 30.6 -COPD in a current smoker -chronic pancreatitis. -Acute kidney injury could be from vancomycin Plan: continue with antibiotics as per infectious disease recommendation, currently on daptomycin and Zosyn discontinue IV Lasix 60 mg IV every 8 hours, Monitor creatinine and consult rn perioperative team continue to monitor oxygen level, continue with bronchodilator and oxygen as needed. Pulmonary of the case Elevated troponin,cardiology on the case and recommended stress test on Saturday. No aspirin on Plavix currently. Continue with Lovenox therapeutic dose DVT prophylaxis: Lovenox GI prophylaxis Pepcid Prognosis is guarded
--- NOTE | 2019-12-13 15:54 | CONS ---
CONSULTATION Dr. Shepherd dictating progress note on Sergio Martini. REASON FOR CONSULT: Renal failure. HISTORY OF PRESENT ILLNESS: Patient is a 54-year-old male who was admitted to the hospital on 12/09/2019 with complaints of increased weakness. The patient is status post recent surgery in November which was cervical spine surgery. He had sustained a fall and had displacement of internal fixation and graft at C6-T1 and hardware was removed. There was a local infection with abscess formation. This was cleaned and patient has been on antibiotics. He was admitted again on this admission with complaints of weakness and mental status changes from the rehab. The patient was hypoxic. His blood sugar was also low on initial admission. There was concern for acute non ST elevation MO on this admission. The patient was also found to be in CHF and he has been diuresed. It looks like patient was on vancomycin and the random vancomycin level on 12/08 was 20. Since then, he has been on daptomycin. Blood pressure is noted to be around 130-140 mmHg systolic. The patient has been voiding, 24 hour urine output documented at about 1000 mL. Serum creatinine was 1.5 on initial admission and it has increased to 2.8 today. Patient has not received any IV contrast during this admission. PAST MEDICAL HISTORY: Hypertension, type 2 diabetes, COPD, asthma, osteoarthritis, history of pneumonia, obstructive sleep apnea, history of cervical spine abscess and surgery following surgery for a fracture. Previous history of pancreatitis, pseudocyst formation. PAST SURGICAL HISTORY: Cervical spine surgery, cholecystectomy, tonsillectomy, spinal fusion, L4-L5; surgery for pseudocyst, recent revision anterior cervical corpectomy, C7, removal of hardware and I and D. MEDICATIONS: Medications prior to admission included fenofibrate, Lopressor, Singulair, lamotrigine, multivitamins, Norvasc, vitamin D, Cymbalta, insulin, Neurontin, Percocet, Ultram, Flexeril, Pepcid, Zofran, Pravachol, Seroquel, Flomax, vancomycin, OxyContin. ALLERGIES: Include HALDOL. REVIEW OF SYSTEMS: Cannot be obtained in detail, but no ongoing diarrhea, nausea, vomiting. No significant shortness of breath. PHYSICAL EXAMINATION: Patient is comfortable, awake, he is not in any acute distress. Blood pressure this morning was 130/66, heart rate 104 per minute, he is afebrile. Examination of the abdomen reveals it to be soft, nontender. Examination of lower extremities shows no evidence of edema. POWDERED METAL SUPERVISOR exam shows patient is moving all four extremities. LAB: Show hemoglobin 10.2, sodium 138, potassium 4.0, chloride 89, CO2 is 38, BUN 33, creatinine 2.8, calcium is 11.8. Vancomycin level on December 08 was 20. Coronavirus PCR not detected. ASSESSMENT: 1. Acute kidney injury, acute tubular necrosis, versus component of hypovolemia from recent diuresis as well. Blood pressure has not been significantly low. There is likely component of vancomycin toxicity as well. Currently patient is maintained on daptomycin. He is not on vancomycin. The patient also has hypercalcemia, which is also contributing to the his acute kidney injury, currently nonoliguric. We will monitor urine output and repeat a urinalysis. Initial UA was completely benign on 12/09/2019. Check ultrasound of the kidneys. Continue with IV fluids for now. Continue to hold off on Lasix and repeat labs in a.m. 2. History of cervical spine fracture with surgery and complication with infection and epidural abscess, status post removal of hardware, maintained on antibiotics. Blood cultures negative this admission. 3. Elevated troponin, doubt acute coronary event. 4. Possible pneumonia, maintained on antibiotics. 5. Type 2 diabetes. 6. Hypercalcemia, obtain workup. There may be a component of immobilization. PLAN: Continue off vancomycin. Continue IV fluids. Check ultrasound of the kidneys. Continue off of Lasix. Check postvoid residuals and treat hypercalcemia. I will check a urine immunofixation along with Sameer level and vitamin D levels. Thank you for this consultation. Will continue to follow the patient with you during his hospitalization. MMODL / IJN: [id number] / BULMARO
[2019-12-13 16:54] LABS: Glucose,Whole Blood 176 mg/dL (75-99)
[2019-12-13 21:34] LABS: Glucose,Whole Blood 179 mg/dL (75-99)
[2019-12-13] MEDS: TAMSULOSIN 0.4 MG CAP.ER.24H PO SCH (21:41)
[2019-12-13] MEDS: GABAPENTIN 300 MG CAP PO SCH (21:41)
[2019-12-13] MEDS: traZODone HCL 100 MG TAB PO SCH (21:41)
[2019-12-14] MEDS: PIPERACILLIN-TAZOBACTAM 3.375 GM in SODIUM CHLORIDE 0.9% 100 ML IVPB SCH ×4 (00:09→23:15)
[2019-12-14] MEDS: oxyCODONE ER 20 MG TAB.ER.12H PO SCH ×3 (00:09→23:15)
[2019-12-14] MEDS: QUEtiapine 100 MG TAB PO SCH ×2 (00:11→20:26)
[2019-12-14] MEDS ORDERED: ENOXAPARIN 120 MG/0.8 ML SYRINGE SQ SCH (00:17)
--- NOTE | 2019-12-14 01:26 | PN ---
PROGRESS NOTE DATE OF SERVICE: 12/13/2019 REASON FOR FOLLOWUP: 1. C7 paraspinal abscess. 2. Acute kidney injury. INTERVAL HISTORY: The patient is currently afebrile. The patient is breathing more comfortably. The patient denies having any chest pain or shortness of breath. Minimal cough. No nausea, no vomiting. No abdominal pain or diarrhea. PHYSICAL EXAMINATION: Blood pressure 133/96, pulse of 116, temperature 97.5. He is 94% on 4 L nasal cannula. General description is a middle-aged male lying in bed in no distress. RESPIRATORY SYSTEM: Unlabored breathing, clear to auscultation anteriorly. HEART: S1, S2. Regular rate and rhythm. ABDOMEN: Soft, no tenderness. LABS: Hemoglobin is 10.2, white count 12.6, creatinine is 2.81. DIAGNOSTIC IMPRESSION AND PLAN: Patient with C7 paraspinal abscess status post drainage in the middle of the hardware, now admitted to the hospital with mental status changes. Did have hyperglycemia and concern for renal insufficiency. The patient has been switched over to daptomycin. However, he did have worsening of his kidney function. Nephrology has been consulted with recommendation for now continue with daptomycin and continue with supportive care. MMODL / IJN: [id number] /
[2019-12-14] MEDS: INSULIN ASPART (NovoLOG) 100 UNIT/ML VIAL SQ SCH ×4 (06:39→20:26)
[2019-12-14] MEDS: CYCLOBENZAPRINE 5 MG TAB PO SCH ×3 (06:39→23:14)
[2019-12-14] MEDS: SODIUM CHLORIDE 0.9% 1,000 ML IV SCH (06:40)
[2019-12-14 06:49] LABS: Glucose,Whole Blood 210 mg/dL (75-99)
[2019-12-14 07:04] LABS: Calcium 11.5 mg/dL (8.4-10.2); Potassium 3.3 mmol/L (3.5-5.1)
[2019-12-14 08:01] LABS: Basophils % (A) 0 %; Eosinophils # (A) 0.4 k/uL (0-0.7); Eosinophils % (A) 4 %; Hypochromasia Marked; Lymphocytes # (A) 1.3 k/uL (1.0-4.8); Lymphocytes % (A) 12 %; MCH 25.3 pg (25.0-35.0); MCV 84.2 fL (80.0-100.0); Mean Platelet Volume 6.9; Monocytes # (A) 0.5 k/uL (0-1.0); Monocytes % (A) 4 %; Neutrophils # (A) 8.2 k/uL (1.3-7.7); Neutrophils % (A) 78 %; Platelet Count 317 k/uL (150-450); RBC 3.45 m/uL (4.30-5.90); RDW 13.7 % (11.5-15.5); WBC 10.6 k/uL (3.8-10.6)
[2019-12-14 08:14] LABS: HGB 8.7 gm/dL (13.0-17.5)
[2019-12-14] MEDS: METOPROLOL TARTRATE 25 MG TAB PO SCH ×2 (08:22→20:26)
[2019-12-14] MEDS: lamoTRIgine 100 MG TAB PO SCH ×2 (08:23→20:26)
[2019-12-14] MEDS: FENOFIBRATE 160 MG TAB PO SCH (08:23)
[2019-12-14] MEDS: SENNOSIDES-DOCUSATE SODIUM 1 EACH TAB PO SCH (08:23)
[2019-12-14] MEDS: amLODIPine 5 MG TAB PO SCH (08:23)
[2019-12-14] MEDS: FAMOTIDINE 20 MG TAB PO SCH (08:23)
[2019-12-14] MEDS: FERROUS SULFATE 325 MG TAB PO SCH ×2 (08:24→20:26)
[2019-12-14] MEDS: IPRATROPIUM-ALBUTEROL 3 ML NEB INHALATION PRN (11:16)
--- NOTE | 2019-12-14 11:40 | PN ---
PROGRESS NOTE REASON FOR CONSULT: Patient is seen for followup for acute kidney injury. He was noted to have a creatinine of 2.8 going up from 1.56 on initial admission. Patient is currently maintained on IV fluids. He was also hypercalcemic with a calcium of 11.8 yesterday. Currently, he has had fair urine output. He is maintained on IV fluids. Overall, he states he is slightly better. PHYSICAL EXAMINATION: On examination today, blood pressure is 141/78, heart rate 111 per minute, patient is afebrile. Examination of the heart S1, S2. Examination of the lungs, bilateral breath sounds are heard. Abdomen is soft, nontender. Examination of the lower extremities shows no evidence of edema. CLAM GRADER exam is grossly intact. Patient is in a cervical collar. LABS: Show sodium of 137, potassium 3.3, chloride 92. CO2 is 40, BUN 34, creatinine 2.67, calcium 11.5, hemoglobin 8.7 g/dL. ASSESSMENT: 1. Acute kidney injury, ATN, secondary to hypercalcemia, currently somewhat improved. Patient is maintained on IV fluids. He had been on vancomycin prior to admission. There may have been some element of acute kidney injury from that as well. Currently, nonoliguric with good urine output. Continue with IV fluids and treat hypercalcemia. 2. History of cervical spine fracture with surgery and complication with infection and epidural abscess, status post removal of hardware, maintained on antibiotics. Blood cultures negative this admission. 3. Hypercalcemia, PTH is still pending. It was ordered yesterday. Vitamin D level was 45.3. I will give him a dose of pamidronate and continue with the saline for now. 4. Type 2 diabetes. 5. Hypokalemia, currently improved. PLAN: Continue with IV fluids. Follow up on PTH level, pamidronate x1. Avoid calcium supplements. MMODL / IJN: [id number] /
[2019-12-14 11:56] LABS: Glucose,Whole Blood 195 mg/dL (75-99)
[2019-12-14] MEDS ORDERED: SODIUM CHLORIDE 0.9% 250 ML with PAMIDRONATE 30 MG IV ONE ×2 (12:30)
--- NOTE | 2019-12-14 13:41 | P.PN ---
Subjective Progress Note Date: 12/14/19 Principal diagnosis: Hypoxemia, shortness of breath, altered mentation 54-year-old white male patient of Dr. Wood with past medical history of hypertension, diabetes mellitus, obstructive sleep apnea on BiPAP, chronic back pain, chronic smoker, history of anxiety, depression, who was recently hospitalized from 10/30/2019 through 11/11/2019 when he came in for evaluation of severe shoulder pain after she sustained a fall at home a few weeks following his cervical spine surgery on 10/11/2019 for traumatic T7 burst fracture. Computed tomography scan of the cervical spine revealed traumatic displacement of anterior cervical internal fixation from C6 to T1, and on 10/31/2019 patient underwent anterior cervical decompression and fusion of C6 through T1 extending up to C5 with revision corpectomy C7 with short cage extending from C6 through T1 and posterior cervical fusion of C5 through T2. Patient had an episode of chest pain during the last admission, was evaluated by cardiology, EKG and echocardiogram without significant findings, d-dimer was elevated, CTA chest was without evidence of pulmonary embolism. Patient was discharged to [facility]. Of note during his surgery. Patient was found to have a cervical epidural abscess positive for Staphylococcus epidermidis and he was discharged with a PICC line in place for vancomycin infusions for 6 weeks. On 12/09/2019 patient was brought into the emergency department for evaluation of a ltered mental status, and hypoxemia with O2 saturations of 88%, blood sugar was 66 patient was given half amp of glucose with improvement of his symptoms. His oral membranes are extremely dry, patient is unclear whether he has been eating or drinking well. He seems somewhat confused, he is currently on 5 L of oxygen, he has removed his oxygen, and he is desaturating into the low 80s, seems cindy rgic. Denies any fevers, denies any dyspnea. Chest x-ray showed patchy perihilar and basilar infiltrates with a concern for pneumonia. Brain CT showed no acute abnormality. EKG showed normal sinus rhythm. Labs showed a white blood cell count of 14.7, hemoglobin of 8.5, INR is 1.2, sodium is 134, potassium is 4.2, chloride is 97, CO2 31, BUN is 26, creatinine is 1.56, lactic acid 0.8, troponin is 1.650, proBNP is 1200, urinalysis without sign of infection. Current antibiotic coverage is in the form of azithromycin, Zosyn, and we resumed his vancomycin for recent cervical spine abscess. COVID 19 PCR was sent, pending at this time. Patient is afebrile, he is lethargic, but breathing is nonlabored, he is a poor historian, he is confused. On 12/10/2019 patient seen in follow-up on selective care unit, he is much more awake today, overnight she was the BiPAP with settings of 12/5 and FiO2 of 45%, he is currently on 4 L of oxygen, he sitting up on the edge of the bed, in some questions appropriately, denies any acute distress, his been afebrile overnight. He was started on IV Lasix, continues on antibiotics including vancomycin and Zosyn, no hemoptysis, no completed chest pain, echocardiogram is pending, patient was started on therapeutic doses of Lovenox, lung sounds are diminished, with crackles in the mid to bilateral lower lobes. His troponin is 2.73. Cardiology consultation is pending, coronavirus was negative On 12/11/2019 patient seen in follow-up on selective care unit, he is awake and alert, resting comfortably in bed, he is currently on 6 L of oxygen pulse ox 96%, vital signs stable, afebrile, breathing is nonlabored, no wheezing, no rhonchi, no significant cough or congestion. Much more awake on today's exam, his been wearing his BiPAP at night. Today's chest x-ray shows stable alveolar and interstitial edema, despite the diuretics. Afebrile, ID service is following, her cultures have shown no growth, current antibiotic coverage is in the form of daptomycin and Zosyn. His swallowing evaluation was within normal limits. On 12/14/2019 patient seen in follow-up on selective care units. He is awake and alert, in no acute distress, currently on 3 L of oxygen pulse ox 93%, his been wearing the BiPAP support at night, his been afebrile, vital signs have been stable, breathing is nonlabored, he is receiving IV hydration with 0.9 normal seen a rate of 75 ML per hour, his mucous membranes are extremely dry, patient is asking for some water. Denies any chest pain, denies any hemoptysis, no significant cough or congestion, last chest x-ray from yesterday showed persistent prominence of pulmonary interstitium, and a right infrahilar infiltra te which seems to be improving in appearance, and small pleural effusions. Renal profile slightly improved on today's labs, although still significantly elevated, with BUN of 34 and creatinine of 2.67, white blood cell count is 10.6, hemoglobin is 8.7, sodium is 137, potassium 3.3, CO2 is 40, chloride is 92, yesterday's follow-up pro-calcitonin came back elevated to 0.74 from the initial is 0.30 on 12/10/2019 however patient's renal profile also doubled from his last pro-calcitonin which could also explain increase in his pro-calcitonin level. His blood culture has shown no growth. Patient continues on daptomycin and Zosyn for antibiotic coverage Objective - Vital Signs Vital signs: Vital Signs Temp 97.8 F 12/14/19 12:00 Pulse 120 H 12/14/19 12:00 Resp 20 12/14/19 12:00 BP 145/88 12/14/19 12:00 Pulse Ox 92 L 12/14/19 12:00 Intake & Output 12/13/19 12/14/19 12/14/19 18:59 06:59 18:59 Output Total 400 300 300 Balance -400 -300 -300 Weight 98.5 kg Output: Urine 400 300 300 Other: # Voids 0 - Exam GENERAL EXAM: Alert, very pleasant, 54-year-old white male, and 3 L of oxygen with pulse ox of 93%, comfortable in no apparent distress. Patient has a neck collar in place HEAD: Normocephalic/atraumatic. EYES: Normal reaction of pupils, equal size. Conjunctiva pink, sclera white. NOSE: Clear with pink turbinates. THROAT: No erythema or exudates. NECK: No masses, no JVD, no thyroid enlargement, no adenopathy. Posterior neck incision is clean dry and intact. Patient has a neck collar in place CHEST: No chest wall deformity. Symmetrical expansion. LUNGS: Equal air entry with coarse crackles at bilateral lower and mid lungs CVS: Regular rate and rhythm, normal S1 and S2, no gallops, no murmurs, no rubs ABDOMEN: Soft, nontender. No hepatosplenomegaly, normal bowel sounds, no guarding or rigidity. EXTREMITIES: No clubbing, no edema, no cyanosis, 2+ pulses and upper and lower extremities. MUSCULOSKELETAL: Muscle strength and tone normal. SPINE: No scoliosis or deformity SKIN: No rashes CENTRAL NERVOUS SYSTEM: Alert and oriented -3. No focal deficits, tone is normal in all 4 extremities. PSYCHIATRIC: Alert and oriented -3. Appropriate affect. Intact judgment and insight. - Labs CBC & Chem 7: 12/14/19 06:29 12/14/19 06:29 Labs: Abnormal Lab Results - Last 24 Hours (Table) 12/13/19 12/13/19 12/14/19 Range/Units 16:53 21:30 06:29 RBC (4.30-5.90) m/uL Hgb (13.0-17.5) gm/dL Hct (39.0-53.0) % MCHC (31.0-37.0) g/dL Neutrophils # (1.3-7.7) k/uL Potassium (3.5-5.1) mmol/L Chloride (98-107) mmol/L Carbon Dioxide (22-30) mmol/L BUN (9-20) mg/dL Creatinine (0.66-1.25) mg/dL Glucose (74-99) mg/dL POC Glucose (mg/dL) 176 H 179 H (75-99) mg/dL Calcium (8.4-10.2) mg/dL PTH Intact <2.0 L (14.0-72.0) pg/mL 12/14/19 12/14/19 12/14/19 Range/Units 06:29 06:29 06:29 RBC 3.45 L (4.30-5.90) m/uL Hgb 8.7 L D (13.0-17.5) gm/dL Hct 29.0 L (39.0-53.0) % MCHC 30.0 L (31.0-37.0) g/dL Neutrophils # 8.2 H (1.3-7.7) k/uL Potassium 3.3 L (3.5-5.1) mmol/L Chloride 92 L (98-107) mmol/L Carbon Dioxide 40 H (22-30) mmol/L BUN 34 H (9-20) mg/dL Creatinine 2.67 H (0.66-1.25) mg/dL Glucose 177 H (74-99) mg/dL POC Glucose (mg/dL) 210 H (75-99) mg/dL Calcium 11.5 H (8.4-10.2) mg/dL PTH Intact (14.0-72.0) pg/mL 12/14/19 Range/Units 11:54 RBC (4.30-5.90) m/uL Hgb (13.0-17.5) gm/dL Hct (39.0-53.0) % MCHC (31.0-37.0) g/dL Neutrophils # (1.3-7.7) k/uL Potassium (3.5-5.1) mmol/L Chloride (98-107) mmol/L Carbon Dioxide (22-30) mmol/L BUN (9-20) mg/dL Creatinine (0.66-1.25) mg/dL Glucose (74-99) mg/dL POC Glucose (mg/dL) 195 H (75-99) mg/dL Calcium (8.4-10.2) mg/dL PTH Intact (14.0-72.0) pg/mL Microbiology - Last 24 Hours (Table) 12/09/19 13:53 Blood Culture - Preliminary Blood No Growth after 96 hours Assessment and Plan Plan: Assessment: #1. Acute on chronic hypoxic respiratory failure related to possibility of pneumonia, chest x-ray showed patchy perihilar and basilar infiltrates, rule out possibility of aspiration #2. Altered mental status likely related to metabolic encephalopathy, improved #3. Elevated troponin, EKG without significant findings, recent echocardiogram showed preserved EF of 55-60%, no significant valvular disease, PA pressure of 26.3 mmHg. Cardiology consultations pending #4. Recent hospitalization for cervical spine epidural abscess of anterior cervical C7, and patient was discharged to [facility] on the vancomycin infusions for 6 weeks and which he continues #5. History of cervical myelopathy is status post surgical revision of C6 thr ough T1 and corpectomy of C7 due to trauma, following a fall. Patient had open reduction and internal fixation carpectomy of C7 and fusion of C6 to T1 for recent C7 burst fracture on 10/11/2019 #6. Acute kidney injury, worsening related to diuretic therapy #7. Obstructive sleep apnea on BiPAP therapy at home #8. Chronic smoker, unknown whether the patient is still smoking #9. Suspect underlying history of COPD #10. Diabetes mellitus type 2 #11. Hypertension #12. History of pancreatitis #13. History of anxiety, depression Plan: Continue dependence per ID service recommendations, continue weaning FiO2, maintain aspiration precautions, BiPAP support at night, continue gentle IV hydration and kidney function seems to be slightly better on today's labs. Follow-up chest x-ray in the morning, follow-up electrolytes and renal profile, a vertex remain on hold, nephrology is following, continue nebulized bronchodilators, will follow I performed a history & physical examination of the patient and discussed their management with my nurse practitioner, Aurelia Arenas. I reviewed the nurse practitioner's note and agree with the documented findings and plan of care. Lung sounds are positive for crackles at bilateral bases The findings and the impression was discussed with the patient. I attest to the documentation by the nurse practitioner. Time with Patient: Less than 30
--- NOTE | 2019-12-14 13:46 | P.PN ---
Subjective History of presenting complaint:from records This is a 54-year-old patient who follows with Dr. thomas from [place]. Chronic stable medical conditions include diabetes mellitus type II on insulin pump.,GERD, hypertension, obstructive sleep apnea uses CPAP, chronic pancreatitis, bipolar disorder and chronic low back pain. Known, foraminal s tenosis at C6-C7 and compression fractures C7 with left arm weakness or necropathy. underwent cervical spine surgery by Dr. Shanks-on October 10 2019. Patient is here in November-took a fall with displacement of the internal fixation and graft at C6 to T1. Patient underwent surgery in October 30. With removal of hardware and revision fixation At multiple levels. Local abscess was cleaned out. Cultures growing Staphylococcus epidermidis. Has a cervical collar since then. Patient is brought in from the EMS from the rehab. Patient is found to be bit confused. Had oxygen saturation 88% and a blood glucose down to 66. In the ER he reported feeling weak and tired. Not sure about his oral intake. No fever reported. Admitted with acute non-Q-wave MD, acute congestive heart failure exacerbation, possible pneumonia. Put on IV Lasix. Therapeutic Lovenox dose. Today-less tired. Declining food. Antibiotic changed to daptomycin per ID. subjective 12/12/2019 this is a pleasant 54 years old male with multiple medical problems admitted for pneumonia and altered mental status, Today he is more awake and alert, is still complaining from some dyspnea and occasional cough.no significant chest pain.oxygen saturation is 92% on 4 L oxygen. Nasal cannula. Kolby Vitas looks stable. Creatinine is went up to 2.3,it was 1.09 last month. patientis on daptomycin and Zosyn as per ID team recommendation. Pulmonary team on the case. Consult nephrology team. 12/13/2019 Patient still have her collar and a Place, his breathing quietly and with no coughing. However on 4 L oxygen via high flow nasal cannula. He was saturating 75% on room air this morning. No abdominal pain, no change in bowel habits.WBCs trending down to 12.6 K,creatinine is up to 2.8 Chest x-ray: Persistent right infrahilar infiltrate 12/14/2019 Patient breathing quietly, normal respiratory issue, no abdominal pain or nausea vomiting. He is fully awake and oriented. Still have hard collar in place for his recent spine infection and disease. He is hemodynamically stable. He saturating 92% on 4 L oxygen via nasal cannula rest of vitals are stable, he is a slightly tachypneic WBCs is normal today at 10.6 K, hemoglobin 8.7 inches similar to 3 days ago. Creatinine is slightly less at 2.6. [employer] team on the case His calcium is elevated at 11.5, PTH intact is low less than 2. Further workup is pending Chest x-ray from yesterday showing persistent infiltration. Objective - Vital Signs Vital signs: Vital Signs Temp 97.8 F 12/14/19 12:00 Pulse 120 H 12/14/19 12:00 Resp 20 12/14/19 12:00 BP 145/88 12/14/19 12:00 Pulse Ox 92 L 12/14/19 12:00 Intake & Output 12/13/19 12/14/19 12/14/19 18:59 06:59 18:59 Output Total 400 300 300 Balance -400 -300 -300 Weight 98.5 kg Output: Urine 400 300 300 Other: # Voids 0 - Exam GENERAL: The patient is alert and oriented x3, not in any acute distress. Well developed, well nourished. HEENT: Pupils are round and equally reacting to light. EOMI. No scleral icterus. No conjunctival pallor. Normocephalic, atraumatic. No pharyngeal erythema. No thyromegaly. CARDIOVASCULAR: S1 and S2 present. No murmurs, rubs, or gallops. PULMONARY: Chest is clear to auscultation, no wheezing or crackles. ABDOMEN: Soft, nontender, nondistended, normoactive bowel sounds. No palpable organomegaly. MUSCULOSKELETAL: No joint swelling or deformity. EXTREMITIES: No cyanosis, clubbing, or pedal edema. NEUROLOGICAL: Gross neurological examination did not reveal any focal deficits. SKIN: No rashes. no petechiae. - Labs CBC & Chem 7: 12/14/19 06:29 12/14/19 06:29 Labs: Abnormal Lab Results - Last 24 Hours (Table) 12/13/19 12/13/19 12/14/19 Range/Units 16:53 21:30 06:29 RBC (4.30-5.90) m/uL Hgb (13.0-17.5) gm/dL Hct (39.0-53.0) % MCHC (31.0-37.0) g/dL Neutrophils # (1.3-7.7) k/uL Potassium (3.5-5.1) mmol/L Chloride (98-107) mmol/L Carbon Dioxide (22-30) mmol/L BUN (9-20) mg/dL Creatinine (0.66-1.25) mg/dL Glucose (74-99) mg/dL POC Glucose (mg/dL) 176 H 179 H (75-99) mg/dL Calcium (8.4-10.2) mg/dL PTH Intact <2.0 L (14.0-72.0) pg/mL 12/14/19 12/14/19 12/14/19 Range/Units 06:29 06:29 06:29 RBC 3.45 L (4.30-5.90) m/uL Hgb 8.7 L D (13.0-17.5) gm/dL Hct 29.0 L (39.0-53.0) % MCHC 30.0 L (31.0-37.0) g/dL Neutrophils # 8.2 H (1.3-7.7) k/uL Potassium 3.3 L (3.5-5.1) mmol/L Chloride 92 L (98-107) mmol/L Carbon Dioxide 40 H (22-30) mmol/L BUN 34 H (9-20) mg/dL Creatinine 2.67 H (0.66-1.25) mg/dL Glucose 177 H (74-99) mg/dL POC Glucose (mg/dL) 210 H (75-99) mg/dL Calcium 11.5 H (8.4-10.2) mg/dL PTH Intact (14.0-72.0) pg/mL 12/14/19 Range/Units 11:54 RBC (4.30-5.90) m/uL Hgb (13.0-17.5) gm/dL Hct (39.0-53.0) % MCHC (31.0-37.0) g/dL Neutrophils # (1.3-7.7) k/uL Potassium (3.5-5.1) mmol/L Chloride (98-107) mmol/L Carbon Dioxide (22-30) mmol/L BUN (9-20) mg/dL Creatinine (0.66-1.25) mg/dL Glucose (74-99) mg/dL POC Glucose (mg/dL) 195 H (75-99) mg/dL Calcium (8.4-10.2) mg/dL PTH Intact (14.0-72.0) pg/mL Microbiology - Last 24 Hours (Table) 12/09/19 13:53 Blood Culture - Preliminary Blood No Growth after 96 hours Assessment and Plan Assessment: -Possible pneumonia, suspect gram-negative organism -Acute congestive heart failure exacerbation-some improvement-on IV Lasix -acute kidney injury -Hypercalcemia -elevated troponin, mostly secondary to renal disease and infectious process. Cannot rule out coronary artery disease -recent history of C7 anterior cervical epidural abscess, patient was discharged to [facility] on vancomycin for 6 weeks. He continue on antibiotics daptomycin and Zosyn currently. -Diabetes mellitus type 2, uncontrolled with , hypoglycemia . better -GERD -Essential hypertension -Obstructive sleep apnea uses a BiPAP machine -Bipolar disorder -Chronic low back pain -Obesity BMI 30.6 -COPD in a current smoker -chronic pancreatitis. -Acute kidney injury could be from vancomycin Plan: continue with antibiotics as per infectious disease recommendation, currently on daptomycin and Zosyn discontinue IV Lasix 60 mg IV every 8 hours, continue with gentle hydration. Monitor creatinine and consult electrotherapist team. Follow-up workup for hypercalcemia continue to monitor oxygen level, continue with bronchodilator and oxygen as needed. Pulmonary of the case Elevated troponin,cardiology on the case and recommended stress test on Saturday. No aspirin on Plavix currently. Continue with Lovenox therapeutic dose DVT prophylaxis: Lovenox GI prophylaxis Pepcid Prognosis is guarded
--- NOTE | 2019-12-14 15:13 | CDI ---
Documentation Clarification Form Date: 12/14/2019 02:56:44 PM From: Huong Plascencia CCS, CCDS Admit Date: 12/09/2019 02:14:00 PM Patient Name: Sergio Martini Visit Number: [id number] Discharge Date: ATTENTION: The Clinical Documentation Specialists (CDI) and [facility] Coding Staff appreciate your assistance in clarifying documentation. Please respond to the clarification below the line at the bottom and electronically sign. The CDI & [facility] Coding staff will review the response and follow-up if needed. Please note: Queries are made part of the Legal Health Record. If you have any questions, please contact the author of this message via ITS. Dr. Guy Mendoza: Sepsis is documented in the ED note on 12/08: "Patient does meet sepsis criteria. Impression: Pneumonia, Sepsis." Per the 12/08 History & Physical under Thrombosis Risk Factor Assessment: "Sepsis (< 1month)." Per the 12/10 Cardiology Progress Note: "Suspect Type II NSTEMI from Sepsis." History/Risk Factors: IDDM II, Hypertension, KASH on CPAP, Chronic Pancreatitis, Known foraminal stenosis C6-C7 & Compression fractures C7 status post Cervical Fusion in October 1009. Fall in November 2019 with displacement of internal fixation & graft C6 & T1 with removal of hardware & revision. Local abscess cleaned out, positive cultures: Staphylococcus epidermidis. Obesity, former smoker. Clinical Indicators: Patient presented to the ED on 12/08 with altered mental status & weakness from rehab. Diagnosed with Acute Non Q Wave WA, Possible pneumonia, suspect gram negative, Acute Exacerbation CHF nos, YADIRA w/ATN & Hyperglycemia. VS on admission: T 99, P 96-108^, R 18 (sob), BP 93/61, PO 94-91 6Lnc. LAB 12/08: WBC 14.7^, Hgb 8.5*, Hct 26.1*, Neut 12.4^, Na 134*, BUN 26^, Cr 1.56^, Glucose 125^, Trop 1.650^^, 2.730^^; Total Protein 5.6*, Albumin 2.9*. UA & COVID negative. Treatment 12/08: IV fluid 1,000 mla @ 130 mls/hr, INH Albuterol, IV Azithromycin, IV zosyn, IV fluid bolus 1,000 mls @ 999 mls/hr, IV Dextrose. In your professional opinion, please clarify if these findings signify one of the following conditions, whether the condition is POA, and cause, if known: Sepsis ruled out Sepsis ruled in o Severe Sepsis Other, please specify Unable to determine Present on Admission: Yes or No (Last Revision: June 2017) sepsis ruled out, MTDD
--- NOTE | 2019-12-14 15:28 | CDI ---
Documentation Clarification Form Date: 12/14/2019 03:16:02 PM From: Huong Plascencia CCS, CCDS Admit Date: 12/09/2019 02:14:00 PM Patient Name: Sergio Martini Visit Number: [id number] Discharge Date: ATTENTION: The Clinical Documentation Specialists (CDI) and [facility] Coding Staff appreciate your assistance in clarifying documentation. Please respond to the clarification below the line at the bottom and electronically sign. The CDI & [facility] Coding staff will review the response and follow-up if needed. Please note: Queries are made part of the Legal Health Record. If you have any questions, please contact the author of this message via ITS. Dr. Ilir Kellogg: Per the 12/10 Cardiology Progress Note: "Suspect type 2 NSTEMI from sepsis." Per the 12/09 History & Physical and subsequent Progress Notes on 12/09 & 12/10: "Acute non-Q wave myocardial infarction." Patient History/Risk Factors: IDDM II, Hypertension, Heart Failure nos, KASH on BiPAP, Chronic low back pain status post Cervical fusion & C7 Epidural Abscess, COPD, former smoker. Clinical Indicators: Presented to the ED on 12/08 with altered mental status from rehab after spinal surgery. Diagnosed with Sepsis & pneumonia. VS on admission: T 99, P 96 = 108^, R 18 (sob), BP 93/61 - 106/67, PO 94 6Lnc - 91 6Lnc. LAB: WBC 14.7, hgb 8.5, Neut 12.4, PT 12.5, INR 1.2, APTT 31.9, Troponin 1.650^^, 2.730^^. EKG Results 12/08: nsr. Treatment 12/08: IV fluid 1,000 mls @ 130 mls/hr, INH albuterol, IV Azithromycin, IV zosyn, IV fluid 1,000 mls @ 999 mls/hr. 12/09 IV Lasix, 12/11 IV Kcl. In order to capture the severity of condition and necessary documentation specificity, please clarify: Myocardial Infarction ruled out Type II Myocardial Infarction due to: NSTEMI o Present on Admission: Yes or No Other, please specify: Unable to determine Site of myocardial injury, if known: o Anterior wall o Inferior wall o Lateral wall o Posterior wall o Septal wall o Other, please specify o Unable to determine (Last Revision: December 2016) Type 2 NSTEMI secondary to sepsis, YADIRA, present on arrival as documented previously. MTDD
[2019-12-14 16:58] LABS: Glucose,Whole Blood 182 mg/dL (75-99)
[2019-12-14 20:20] LABS: Glucose,Whole Blood 186 mg/dL (75-99)
[2019-12-14] MEDS: GABAPENTIN 300 MG CAP PO SCH (20:26)
[2019-12-14] MEDS: traZODone HCL 100 MG TAB PO SCH (20:26)
[2019-12-14] MEDS: TAMSULOSIN 0.4 MG CAP.ER.24H PO SCH (20:26)
[2019-12-14] MEDS: ENOXAPARIN 100 MG/ML SYRINGE SQ SCH (23:15)
--- NOTE | 2019-12-15 01:14 | PN ---
PROGRESS NOTE DATE OF SERVICE: 12/14/2019 REASON FOR FOLLOWUP: C7 paraspinal abscess. INTERVAL HISTORY: The patient is currently afebrile. The patient is breathing comfortably. The patient denies having any chest pain, shortness of breath or cough. No nausea, vomiting, abdominal pain or diarrhea. PHYSICAL EXAMINATION: Blood pressure 154/82 with a pulse of 111, temperature 98. He is 92% on 3 L nasal cannula. General description is a middle-aged male up in the bed in no distress. RESPIRATORY SYSTEM: Unlabored breathing, decreased breath sounds at the bases. No wheeze. HEART: S1, S2. Regular rate and rhythm. ABDOMEN: Soft, no tenderness. LABS: Hemoglobin is 8.7, white count 10.6, creatinine is 2.67. DIAGNOSTIC IMPRESSION AND PLAN: Patient with C7 paraspinal abscess status post surgical drainage and removal of the hardware, concern for positive Staph epi. Patient on vancomycin in the hospital with multiple symptoms including acute renal insufficiency possible vancomycin related, which has been discontinued. The patient is currently on daptomycin to continue. Will recheck his inflammatory markers and monitor clinical course closely. MMODL / IJN: [id number] /
[2019-12-15] MEDS: POTASSIUM CHLORIDE 20 MEQ in WATER FOR INJECTION 1 100ML.BAG IVPB SCH ×2 (03:34→06:53)
[2019-12-15 06:13] LABS: Glucose,Whole Blood 185 mg/dL (75-99)
[2019-12-15] MEDS: CYCLOBENZAPRINE 5 MG TAB PO SCH ×3 (06:53→21:03)
[2019-12-15] MEDS: INSULIN ASPART (NovoLOG) 100 UNIT/ML VIAL SQ SCH ×4 (06:53→21:05)
[2019-12-15] MEDS: SODIUM CHLORIDE 0.9% 1,000 ML IV SCH ×2 (06:54→11:04)
[2019-12-15] MEDS: IPRATROPIUM-ALBUTEROL 3 ML NEB INHALATION PRN (07:40)
--- NOTE | 2019-12-15 07:47 | XR ---
EXAMINATION TYPE: XR chest 1V portable DATE OF EXAM: 12/15/2019 HISTORY: Shortness of breath. COMPARISON: 12/13/2019 TECHNIQUE: Single view of the chest is submitted. FINDINGS: Demonstrated are scattered senescent parenchymal change. Progressive perihilar and basilar infiltrates with pleural effusions. The findings may reflect pneumo shlomo however underlying congestive failure is difficult to exclude. Correlate clinically and progress studies are recommended. The heart is stable. Hilar and mediastinal structures are within normal limits. Degenerative changes are seen of the dorsal spine. IMPRESSION: 1. Progressive perihilar and basilar infiltrates with pleural effusions. The findings may reflect pn eumonia however underlying congestive failure is difficult to exclude. Correlate clinically and progr ess studies are recommended.
[2019-12-15 07:59] LABS: Calcium 12.3 mg/dL (8.4-10.2); Potassium 3.5 mmol/L (3.5-5.1)
[2019-12-15 08:02] LABS: Basophils % (A) 0 %; Eosinophils # (A) 0.3 k/uL (0-0.7); Eosinophils % (A) 3 %; HCT 30.2 % (39.0-53.0); HGB 8.9 gm/dL (13.0-17.5); Hypochromasia Marked; Lymphocytes # (A) 1.2 k/uL (1.0-4.8); Lymphocytes % (A) 10 %; MCH 25.9 pg (25.0-35.0); MCHC 29.4 g/dL (31.0-37.0); MCV 88.1 fL (80.0-100.0); Monocytes # (A) 0.5 k/uL (0-1.0); Monocytes % (A) 4 %; Neutrophils # (A) 10.1 k/uL (1.3-7.7); Neutrophils % (A) 83 %; Platelet Count 314 k/uL (150-450); RBC 3.43 m/uL (4.30-5.90); RDW 14.1 % (11.5-15.5); WBC 12.3 k/uL (3.8-10.6)
[2019-12-15 08:13] LABS: C Reactive Protein 220.5 mg/L (<10.0)
[2019-12-15] MEDS: FAMOTIDINE 20 MG TAB PO SCH (08:31)
[2019-12-15] MEDS: amLODIPine 5 MG TAB PO SCH (08:31)
[2019-12-15] MEDS: FERROUS SULFATE 325 MG TAB PO SCH ×2 (08:32→21:03)
[2019-12-15] MEDS: FENOFIBRATE 160 MG TAB PO SCH (08:32)
[2019-12-15] MEDS: SENNOSIDES-DOCUSATE SODIUM 1 EACH TAB PO SCH (08:32)
[2019-12-15] MEDS: lamoTRIgine 100 MG TAB PO SCH ×2 (08:32→21:03)
[2019-12-15] MEDS: METOPROLOL TARTRATE 25 MG TAB PO SCH ×2 (08:32→21:03)
--- NOTE | 2019-12-15 09:09 | CDI ---
Documentation Clarification Form Date: 12/15/2019 08:48:02 AM From: Huong Plascencia CCS, CCDS Admit Date: 12/09/2019 02:14:00 PM Patient Name: Sergio Martini Visit Number: [id number] Discharge Date: ATTENTION: The Clinical Documentation Specialists (CDI) and [facility] Coding Staff appreciate your assistance in clarifying documentation. Please respond to the clarification below the line at the bottom and electronically sign. The CDI & [facility] Coding staff will review the response and follow-up if needed. Please note: Queries are made part of the Legal Health Record. If you have any questions, please contact the author of this message via ITS. Dr. Guy Mendoza: Heart failure is documented without further specificity. Per the 12/18 History & Physical: "Acute congestive heart failure exacerbation." History/Risk Factors: Asthma nos, COPD, DM, GERD, Hypertension, OA, Sleep apnea (uses CPAP), Chronic back pain & recent spinal surgery and subsequent abscess in epidural space. Current Smoker. Clinical Indicators: Presented to the ED on 12/08 with low Pulse Ox & altered mental status via EMS. Blood sugar low (66). Admitted with Sepsis & Pneumonia. VS 12/08: T 99, P 96, R 18 (SOB), BP 93/61, PO 94 6Lnc BMI: 27.4 BNP: 1200 Echocardiogram Results 12/09: Overall left ventricular systolic function is normal with EF between 60-65%. Chest X Ray 12/08: Patchy perihilar & basilar infiltrates, Correlate for pneumonia. Chest X Ray 12/09: Bilateral scattered infiltrates greater in mid & lower lung carbone. Chest X Ray 12/10: Chronic changes with continued worsening alveolar & interstitial edema and/or infiltrates mid-lower lungs. Chest X Ray 12/12: Small effusions suggested. Chest X Ray 12/14: Progressive perihilar and basilar infiltrates with pleural effusions. The findings may reflect pneumonia however underlying congestive failure is difficult to exclude. Correlate clinically and progress studies are recommended. Treatment 12/08: IV fluid 1,000 mls @ 130 mls/hr, INH Albuterol, IV Azithromycin, IV Zosyn, IV fluid 1,000 mls @ 999 mls/hr, IV Dextrose, IV Vancomycin, O2 6Lnc. 12/09: IV Lasix, IV Daptomycin, O2: BiPAP at night, 4Lnc. 12/14: Continued 4Lnc high flow. In your professional opinion, can you please clarify the documented heart failure? Heart Failure is ruled out. Heart Failure is ruled in: Please specify the type & acuity: Diastolic Heart Failure: o Acute o Chronic o Acute on Chronic Systolic & Diastolic Heart Failure: o Acute o Chronic o Acute on Chronic Heart Failure Unable to Determine Other, please specify If ruled in, was the Heart Failure Present on Admission: Yes or No. (Last Revision: June 2017) acute on chronic congestive heart exacerbation from diastolic dysfunction EF 60- 65%, POA MTDD
[2019-12-15 09:18] LABS: Erythrocyte Sedimentation Rate 122 mm/hr (0-15)
--- NOTE | 2019-12-15 10:39 | P.PN ---
Subjective History of presenting complaint:from records This is a 54-year-old patient who follows with Dr. thomas from [place]. Chronic stable medical conditions include diabetes mellitus type II on insulin pump.,GERD, hypertension, obstructive sleep apnea uses CPAP, chronic pancreatitis, bipolar disorder and chronic low back pain. Known, foraminal s tenosis at C6-C7 and compression fractures C7 with left arm weakness or necropathy. underwent cervical spine surgery by Dr. Shanks-on October 10 2019. Patient is here in November-took a fall with displacement of the internal fixation and graft at C6 to T1. Patient underwent surgery in October 30. With removal of hardware and revision fixation At multiple levels. Local abscess was cleaned out. Cultures growing Staphylococcus epidermidis. Has a cervical collar since then. Patient is brought in from the EMS from the rehab. Patient is found to be bit confused. Had oxygen saturation 88% and a blood glucose down to 66. In the ER he reported feeling weak and tired. Not sure about his oral intake. No fever reported. Admitted with acute non-Q-wave DE, acute congestive heart failure exacerbation, possible pneumonia. Put on IV Lasix. Therapeutic Lovenox dose. Today-less tired. Declining food. Antibiotic changed to daptomycin per ID. subjective 12/12/2019 this is a pleasant 54 years old male with multiple medical problems admitted for pneumonia and altered mental status, Today he is more awake and alert, is still complaining from some dyspnea and occasional cough.no significant chest pain.oxygen saturation is 92% on 4 L oxygen. Nasal cannula. Kolby Vitas looks stable. Creatinine is went up to 2.3,it was 1.09 last month. patientis on daptomycin and Zosyn as per ID team recommendation. Pulmonary team on the case. Consult nephrology team. 12/13/2019 Patient still have her collar and a Place, his breathing quietly and with no coughing. However on 4 L oxygen via high flow nasal cannula. He was saturating 75% on room air this morning. No abdominal pain, no change in bowel habits.WBCs trending down to 12.6 K,creatinine is up to 2.8 Chest x-ray: Persistent right infrahilar infiltrate 12/14/2019 Patient breathing quietly, normal respiratory issue, no abdominal pain or nausea vomiting. He is fully awake and oriented. Still have hard collar in place for his recent spine infection and disease. He is hemodynamically stable. He saturating 92% on 4 L oxygen via nasal cannula rest of vitals are stable, he is a slightly tachypneic WBCs is normal today at 10.6 K, hemoglobin 8.7 inches similar to 3 days ago. Creatinine is slightly less at 2.6. Boilermaker Helper team on the case His calcium is elevated at 11.5, PTH intact is low less than 2. Further workup is pending Chest x-ray from yesterday showing persistent infiltration. 12/15/2019 Patient is breathing quietly, no respiratory or abdominal complaints. He has pain in his shoulders and he agrees for lidocaine patch. his breathing quietly. He is saturating 91% on 4 L oxygen via nasal cannula for slowly to improve pneumonia. Nephrology service on the case for hypercalcemia and he got 1 dose of pamidro keyana IV yesterday. His creatinine trended down slowly to 2.4 today.is also on normal saline at 75 mL/h. Parathyroid hormone was low. Further recommendation per machine operators. WBC 12.3 K.C-reactive protein is a stable at 220.5 which is elevated. Calcium today is 12.3 which is still elevated.hemoglobin is stable at 8.9. Patient agrees to go to subacute rehab upon discharge cartilage team were in the case for high troponin.I discussed the case with cartilage teamyesterday, no need to repeat stress test currently. They signed off the case Objective - Vital Signs Vital signs: Vital Signs Temp 97.5 F L 12/15/19 08:36 Pulse 110 H 12/15/19 08:36 Resp 20 12/15/19 08:36 BP 148/88 12/15/19 08:36 Pulse Ox 91 L 12/15/19 08:36 Intake & Output 12/14/19 12/15/19 12/15/19 18:59 06:59 18:59 Intake Total 240 2325 0 Output Total 300 800 Balance -60 1525 0 Weight 98.5 kg 96.7 kg Intake: IV 450 DAPTOmycin 600 mg In 50 Sodium Chloride 0.9% 50 ml @ 100 mls/hr IVPB Q24HR [facility] Rx#:[id number] Piperacillin-Tazobactam 3 400 .375 gm In Sodium Chloride 0.9% 100 ml @ 25 mls/hr IVPB Q8HR [facility] Rx# :[id number] Intake, IV Titration 1875 Amount Potassium Chloride 20 meq 50 In Water For Injection 1 100ml.bag @ 50 mls/hr IVPB Q2H [facility] Rx#: [id number] Sodium Chloride 0.9% 1, 1575 000 ml @ 75 mls/hr IV . [id number] [facility] Rx#:[id number] Sodium Chloride 0.9% 250 250 ml @ 83 mls/hr IV .Q3H1M ONE with Pamidronate 30 mg Rx#:[id number] Oral 240 0 Output: Urine 300 800 Other: Voiding Method Urinal Urinal - Exam GENERAL: The patient is alert and oriented x3, not in any acute distress. Well developed, well nourished. HEENT: Pupils are round and equally reacting to light. EOMI. No scleral icterus. No conjunctival pallor. Normocephalic, atraumatic. No pharyngeal erythema. No thyromegaly. CARDIOVASCULAR: S1 and S2 present. No murmurs, rubs, or gallops. PULMONARY: Chest is clear to auscultation, no wheezing or crackles. ABDOMEN: Soft, nontender, nondistended, normoactive bowel sounds. No palpable organomegaly. MUSCULOSKELETAL: No joint swelling or deformity. EXTREMITIES: No cyanosis, clubbing, or pedal edema. NEUROLOGICAL: Gross neurological examination did not reveal any focal deficits. SKIN: No rashes. no petechiae. - Labs CBC & Chem 7: 12/15/19 07:05 12/15/19 07:05 Labs: Abnormal Lab Results - Last 24 Hours (Table) 12/14/19 12/14/19 12/14/19 Range/Units 06:29 11:54 16:57 WBC (3.8-10.6) k/uL RBC (4.30-5.90) m/uL Hgb (13.0-17.5) gm/dL Hct (39.0-53.0) % MCHC (31.0-37.0) g/dL Neutrophils # (1.3-7.7) k/uL ESR (0-15) mm/hr Sodium (137-145) mmol/L Chloride (98-107) mmol/L Carbon Dioxide (22-30) mmol/L BUN (9-20) mg/dL Creatinine (0.66-1.25) mg/dL Glucose (74-99) mg/dL POC Glucose (mg/dL) 195 H 182 H (75-99) mg/dL Calcium (8.4-10.2) mg/dL C-Reactive Protein (<10.0) mg/L PTH Intact <2.0 L (14.0-72.0) pg/mL 12/14/19 12/15/19 12/15/19 Range/Units 20:16 06:12 07:05 WBC 12.3 H (3.8-10.6) k/uL RBC 3.43 L (4.30-5.90) m/uL Hgb 8.9 L (13.0-17.5) gm/dL Hct 30.2 L (39.0-53.0) % MCHC 29.4 L (31.0-37.0) g/dL Neutrophils # 10.1 H (1.3-7.7) k/uL ESR 122 H (0-15) mm/hr Sodium (137-145) mmol/L Chloride (98-107) mmol/L Carbon Dioxide (22-30) mmol/L BUN (9-20) mg/dL Creatinine (0.66-1.25) mg/dL Glucose (74-99) mg/dL POC Glucose (mg/dL) 186 H 185 H (75-99) mg/dL Calcium (8.4-10.2) mg/dL C-Reactive Protein (<10.0) mg/L PTH Intact (14.0-72.0) pg/mL 12/15/19 Range/Units 07:05 WBC (3.8-10.6) k/uL RBC (4.30-5.90) m/uL Hgb (13.0-17.5) gm/dL Hct (39.0-53.0) % MCHC (31.0-37.0) g/dL Neutrophils # (1.3-7.7) k/uL ESR (0-15) mm/hr Sodium 136 L (137-145) mmol/L Chloride 92 L (98-107) mmol/L Carbon Dioxide 34 H (22-30) mmol/L BUN 33 H (9-20) mg/dL Creatinine 2.48 H (0.66-1.25) mg/dL Glucose 182 H (74-99) mg/dL POC Glucose (mg/dL) (75-99) mg/dL Calcium 12.3 H (8.4-10.2) mg/dL C-Reactive Protein 220.5 H (<10.0) mg/L PTH Intact (14.0-72.0) pg/mL Microbiology - Last 24 Hours (Table) 12/09/19 13:53 Blood Culture - Preliminary Blood No Growth after 120 hours Assessment and Plan Assessment: -Possible pneumonia, suspect gram-negative organism -Acute congestive heart failure exacerbation-some improvement-on IV Lasix -acute kidney injury -Hypercalcemia -elevated troponin, mostly secondary to renal disease and infectious process. Cannot rule out coronary artery disease -recent history of C7 anterior cervical epidural abscess, patient was discharged to [facility] on vancomycin for 6 weeks. He continue on antibiotics daptomycin and Zosyn currently. -Diabetes mellitus type 2, uncontrolled with , hypoglycemia . better -GERD -Essential hypertension -Obstructive sleep apnea uses a BiPAP machine -Bipolar disorder -Chronic low back pain -Obesity BMI 30.6 -COPD in a current smoker -chronic pancreatitis. -Acute kidney injury could be from vancomycin Plan: continue with antibiotics as per infectious disease recommendation, currently on daptomycin and Zosyn discontinue IV Lasix 60 mg IV every 8 hours, continue with gentle hydration. Monitor creatinineand calcium and Follow-up recommendation of machine operators team. Follow-up workup for hypercalcemia continue to monitor oxygen level, continue with bronchodilator and oxygen as needed. Pulmonary serviceof the case Elevated troponin,cardiology on the case and initiallyrecommended stress test on Saturday, however yesterday's they recommended no need to repeat stress test currently. No aspirin on Plavix currently. Continue with Lovenox therapeutic dose DVT prophylaxis: Lovenox GI prophylaxis Pepcid Prognosis is guarded
--- NOTE | 2019-12-15 10:42 | US ---
EXAMINATION TYPE: US kidneys/renal and bladder DATE OF EXAM: 12/15/2019 COMPARISON: NONE CLINICAL HISTORY: RF. EXAM MEASUREMENTS: Right Kidney: 12.3 x 6.0 x 6.4 cm Left Kidney: 12.0 x 6.4 x 6.0 cm Technically difficult study, patient unable to move or hold his breath, on a non-invasive ventilation machine. *Incidental finding Right Kidney: No hydronephrosis or masses seen, measures slightly large Left Kidney: Inferior pole obscured by bowel gas, difficult to visualize, no masses seen in portions visualized Bladder: wnl There is no evidence for hydronephrosis at this point in time. No nephrolithiasis is seen. No nishant s are identified. The urinary bladder is anechoic. Bilateral ureteral jets are seen. IMPRESSION: No distinct abnormality is appreciated.
[2019-12-15] MEDS: ENOXAPARIN 100 MG/ML SYRINGE SQ SCH ×2 (11:00→21:04)
[2019-12-15] MEDS: LIDOCAINE 5% PATCH TOPICAL SCH (11:00)
[2019-12-15 11:40] LABS: Glucose,Whole Blood 213 mg/dL (75-99)
[2019-12-15] MEDS: PIPERACILLIN-TAZOBACTAM 3.375 GM in SODIUM CHLORIDE 0.9% 100 ML IVPB SCH ×3 (11:46→23:49)
[2019-12-15] MEDS: oxyCODONE ER 20 MG TAB.ER.12H PO SCH ×2 (12:16→23:48)
--- NOTE | 2019-12-15 13:19 | P.PN ---
Subjective Progress Note Date: 12/15/19 Principal diagnosis: Hypoxemia, shortness of breath, altered mentation 54-year-old white male patient of Dr. Wood with past medical history of hypertension, diabetes mellitus, obstructive sleep apnea on BiPAP, chronic back pain, chronic smoker, history of anxiety, depression, who was recently hospitalized from 10/30/2019 through 11/11/2019 when he came in for evaluation of severe shoulder pain after she sustained a fall at home a few weeks following his cervical spine surgery on 10/11/2019 for traumatic T7 burst fracture. Computed tomography scan of the cervical spine revealed traumatic displacement of anterior cervical internal fixation from C6 to T1, and on 10/31/2019 patient underwent anterior cervical decompression and fusion of C6 through T1 extending up to C5 with revision corpectomy C7 with short cage extending from C6 through T1 and posterior cervical fusion of C5 through T2. Patient had an episode of chest pain during the last admission, was evaluated by cardiology, EKG and echocardiogram without significant findings, d-dimer was elevated, CTA chest was without evidence of pulmonary embolism. Patient was discharged to [facility]. Of note during his surgery. Patient was found to have a cervical epidural abscess positive for Staphylococcus epidermidis and he was discharged with a PICC line in place for vancomycin infusions for 6 weeks. On 12/09/2019 patient was brought into the emergency department for evaluation of a ltered mental status, and hypoxemia with O2 saturations of 88%, blood sugar was 66 patient was given half amp of glucose with improvement of his symptoms. His oral membranes are extremely dry, patient is unclear whether he has been eating or drinking well. He seems somewhat confused, he is currently on 5 L of oxygen, he has removed his oxygen, and he is desaturating into the low 80s, seems cindy rgic. Denies any fevers, denies any dyspnea. Chest x-ray showed patchy perihilar and basilar infiltrates with a concern for pneumonia. Brain CT showed no acute abnormality. EKG showed normal sinus rhythm. Labs showed a white blood cell count of 14.7, hemoglobin of 8.5, INR is 1.2, sodium is 134, potassium is 4.2, chloride is 97, CO2 31, BUN is 26, creatinine is 1.56, lactic acid 0.8, troponin is 1.650, proBNP is 1200, urinalysis without sign of infection. Current antibiotic coverage is in the form of azithromycin, Zosyn, and we resumed his vancomycin for recent cervical spine abscess. COVID 19 PCR was sent, pending at this time. Patient is afebrile, he is lethargic, but breathing is nonlabored, he is a poor historian, he is confused. On 12/10/2019 patient seen in follow-up on selective care unit, he is much more awake today, overnight she was the BiPAP with settings of 12/5 and FiO2 of 45%, he is currently on 4 L of oxygen, he sitting up on the edge of the bed, in some questions appropriately, denies any acute distress, his been afebrile overnight. He was started on IV Lasix, continues on antibiotics including vancomycin and Zosyn, no hemoptysis, no completed chest pain, echocardiogram is pending, patient was started on therapeutic doses of Lovenox, lung sounds are diminished, with crackles in the mid to bilateral lower lobes. His troponin is 2.73. Cardiology consultation is pending, coronavirus was negative On 12/11/2019 patient seen in follow-up on selective care unit, he is awake and alert, resting comfortably in bed, he is currently on 6 L of oxygen pulse ox 96%, vital signs stable, afebrile, breathing is nonlabored, no wheezing, no rhonchi, no significant cough or congestion. Much more awake on today's exam, his been wearing his BiPAP at night. Today's chest x-ray shows stable alveolar and interstitial edema, despite the diuretics. Afebrile, ID service is following, her cultures have shown no growth, current antibiotic coverage is in the form of daptomycin and Zosyn. His swallowing evaluation was within normal limits. On 12/14/2019 patient seen in follow-up on selective care units. He is awake and alert, in no acute distress, currently on 3 L of oxygen pulse ox 93%, his been wearing the BiPAP support at night, his been afebrile, vital signs have been stable, breathing is nonlabored, he is receiving IV hydration with 0.9 normal seen a rate of 75 ML per hour, his mucous membranes are extremely dry, patient is asking for some water. Denies any chest pain, denies any hemoptysis, no significant cough or congestion, last chest x-ray from yesterday showed persistent prominence of pulmonary interstitium, and a right infrahilar infiltra te which seems to be improving in appearance, and small pleural effusions. Renal profile slightly improved on today's labs, although still significantly elevated, with BUN of 34 and creatinine of 2.67, white blood cell count is 10.6, hemoglobin is 8.7, sodium is 137, potassium 3.3, CO2 is 40, chloride is 92, yesterday's follow-up pro-calcitonin came back elevated to 0.74 from the initial is 0.30 on 12/10/2019 however patient's renal profile also doubled from his last pro-calcitonin which could also explain increase in his pro-calcitonin level. His blood culture has shown no growth. Patient continues on daptomycin and Zosyn for antibiotic coverage On 12/15/2019 patient seen in follow-up on selective care unit, he is currently on BiPAP, he is having a renal ultrasound done at the bedside, renal profile continues to slightly improve every day, he remains on IV fluids at 75 ML per hour, he is on Zosyn for empiric antibiotic coverage. His BiPAP settings of 12/5 and FiO2 of 45%, today's labs show BUN of 33, and creatinine of 2.48, patient is awake, he is responding appropriately on BiPAP support, today's chest x-ray has been reviewed showing progressive perihilar and basilar infiltrates with pleural effusions, had no fever or chills, no compressive chest pain, no phlegm production. Objective - Vital Signs Vital signs: Vital Signs Temp 97.7 F 12/15/19 12:00 Pulse 104 H 12/15/19 12:00 Resp 27 H 12/15/19 12:00 BP 155/87 12/15/19 12:00 Pulse Ox 97 12/15/19 12:00 Intake & Output 12/14/19 12/15/19 12/15/19 18:59 06:59 18:59 Intake Total 240 2325 0 Output Total 300 800 400 Balance -60 1525 -400 Weight 98.5 kg 96.7 kg Intake: IV 450 DAPTOmycin 600 mg In 50 Sodium Chloride 0.9% 50 ml @ 100 mls/hr IVPB Q24HR [facility] Rx#:[id number] Piperacillin-Tazobactam 3 400 .375 gm In Sodium Chloride 0.9% 100 ml @ 25 mls/hr IVPB Q8HR [facility] Rx# :[id number] Intake, IV Titration 1875 Amount Potassium Chloride 20 meq 50 In Water For Injection 1 100ml.bag @ 50 mls/hr IVPB Q2H [facility] Rx#: [id number] Sodium Chloride 0.9% 1, 1575 000 ml @ 75 mls/hr IV . [id number] [facility] Rx#:[id number] Sodium Chloride 0.9% 250 250 ml @ 83 mls/hr IV .Q3H1M ONE with Pamidronate 30 mg Rx#:[id number] Oral 240 0 Output: Urine 300 800 400 Other: Voiding Method Urinal Urinal # Voids 0 - Exam GENERAL EXAM: Alert, very pleasant, 54-year-old white male, currently on BiPAP support with pressures of 12 and 5 and 45%, comfortable in no apparent distress. Patient has a neck collar in place HEAD: Normocephalic/atraumatic. EYES: Normal reaction of pupils, equal size. Conjunctiva pink, sclera white. NOSE: Clear with pink turbinates. THROAT: No erythema or exudates. NECK: No masses, no JVD, no thyroid enlargement, no adenopathy. Posterior neck incision is clean dry and intact. Patient has a neck collar in place CHEST: No chest wall deformity. Symmetrical expansion. LUNGS: Equal air entry with coarse crackles at bilateral lower and mid lungs CVS: Regular rate and rhythm, normal S1 and S2, no gallops, no murmurs, no rubs ABDOMEN: Soft, nontender. No hepatosplenomegaly, normal bowel sounds, no guarding or rigidity. EXTREMITIES: No clubbing, no edema, no cyanosis, 2+ pulses and upper and lower extremities. MUSCULOSKELETAL: Muscle strength and tone normal. SPINE: No scoliosis or deformity SKIN: No rashes CENTRAL NERVOUS SYSTEM: Alert and oriented -3. No focal deficits, tone is normal in all 4 extremities. PSYCHIATRIC: Alert and oriented -3. Appropriate affect. Intact judgment and insight. - Labs CBC & Chem 7: 12/15/19 07:05 12/15/19 07:05 Labs: Abnormal Lab Results - Last 24 Hours (Table) 12/14/19 12/14/19 12/14/19 Range/Units 06:29 16:57 20:16 WBC (3.8-10.6) k/uL RBC (4.30-5.90) m/uL Hgb (13.0-17.5) gm/dL Hct (39.0-53.0) % MCHC (31.0-37.0) g/dL Neutrophils # (1.3-7.7) k/uL ESR (0-15) mm/hr Sodium (137-145) mmol/L Chloride (98-107) mmol/L Carbon Dioxide (22-30) mmol/L BUN (9-20) mg/dL Creatinine (0.66-1.25) mg/dL Glucose (74-99) mg/dL POC Glucose (mg/dL) 182 H 186 H (75-99) mg/dL Calcium (8.4-10.2) mg/dL C-Reactive Protein (<10.0) mg/L PTH Intact <2.0 L (14.0-72.0) pg/mL 12/15/19 12/15/19 12/15/19 Range/Units 06:12 07:05 07:05 WBC 12.3 H (3.8-10.6) k/uL RBC 3.43 L (4.30-5.90) m/uL Hgb 8.9 L (13.0-17.5) gm/dL Hct 30.2 L (39.0-53.0) % MCHC 29.4 L (31.0-37.0) g/dL Neutrophils # 10.1 H (1.3-7.7) k/uL ESR 122 H (0-15) mm/hr Sodium 136 L (137-145) mmol/L Chloride 92 L (98-107) mmol/L Carbon Dioxide 34 H (22-30) mmol/L BUN 33 H (9-20) mg/dL Creatinine 2.48 H (0.66-1.25) mg/dL Glucose 182 H (74-99) mg/dL POC Glucose (mg/dL) 185 H (75-99) mg/dL Calcium 12.3 H (8.4-10.2) mg/dL C-Reactive Protein 220.5 H (<10.0) mg/L PTH Intact (14.0-72.0) pg/mL 12/15/19 Range/Units 11:38 WBC (3.8-10.6) k/uL RBC (4.30-5.90) m/uL Hgb (13.0-17.5) gm/dL Hct (39.0-53.0) % MCHC (31.0-37.0) g/dL Neutrophils # (1.3-7.7) k/uL ESR (0-15) mm/hr Sodium (137-145) mmol/L Chloride (98-107) mmol/L Carbon Dioxide (22-30) mmol/L BUN (9-20) mg/dL Creatinine (0.66-1.25) mg/dL Glucose (74-99) mg/dL POC Glucose (mg/dL) 213 H (75-99) mg/dL Calcium (8.4-10.2) mg/dL C-Reactive Protein (<10.0) mg/L PTH Intact (14.0-72.0) pg/mL Microbiology - Last 24 Hours (Table) 12/09/19 13:53 Blood Culture - Preliminary Blood No Growth after 120 hours Assessment and Plan Plan: Assessment: #1. Acute on chronic hypoxic respiratory failure related to possibility of pneumonia, chest x-ray showed patchy perihilar and basilar infiltrates, rule out possibility of aspiration #2. Altered mental status likely related to metabolic encephalopathy, improved #3. Elevated troponin, EKG without significant findings, recent echocardiogram showed preserved EF of 55-60%, no significant valvular disease, PA pressure of 26.3 mmHg. Cardiology consultations pending #4. Recent hospitalization for cervical spine epidural abscess of anterior cervical C7, and patient was discharged to ECF on the vancomycin infusions for 6 weeks and which he continues #5. History of cervical myelopathy is status post surgical revision of C6 through T1 and corpectomy of C7 due to trauma, following a fall. Patient had open reduction and internal fixation carpectomy of C7 and fusion of C6 to T1 for recent C7 burst fracture on 10/11/2019 #6. Acute kidney injury, worsening related to diuretic therapy #7. Obstructive sleep apnea on BiPAP therapy at home #8. Chronic smoker, unknown whether the patient is still smoking #9. Suspect underlying history of COPD #10. Diabetes mellitus type 2 #11. Hypertension #12. History of pancreatitis #13. History of anxiety, depression Plan: Continue current medical treatment, ID service is managing the antibiotics, patient has had no fever or chills, hemodynamically has been stable, today's chest x-ray has been reviewed showing perihilar and basilar infiltrates with pleural effusions.mentation has improved since admission, maintain aspiration precautions, BiPAP support at bedtime and as needed, continue breathing treatments. I performed a history & physical examination of the patient and discussed their management with my nurse practitioner, Aurelia Arenas. I reviewed the nurse practitioner's note and agree with the documented findings and plan of care. Lung sounds are positive for crackles at bilateral bases The findings and the impression was discussed with the patient. I attest to the documentation by the nurse practitioner. Time with Patient: Less than 30
[2019-12-15 16:43] LABS: Glucose,Whole Blood 200 mg/dL (75-99)
--- NOTE | 2019-12-15 17:09 | PN ---
PROGRESS NOTE Patient is seen for followup for acute kidney injury and hypercalcemia. He is currently having his ultrasound of the kidneys performed. Patient is lying in bed. He is comfortable. He is not in any acute distress. Blood pressure is 155/87, heart rate 104 per minute. He is afebrile. EXAMINATION OF THE HEART: S1 and S2. EXAMINATION OF LUNGS: Decreased breath sounds at bases. ABDOMEN: Soft, non-tender. Examination of lower extremities shows no significant edema. HYDRAULIC BOOM OPERATOR exam shows patient is moving all 4 extremities. Labs show hemoglobin 8.9, sodium 136, potassium 3.5, BUN 33, serum creatinine 2.48, serum calcium 12.3. ASSESSMENT: 1. Acute kidney injury associated with hypercalcemia as well as possible component of vancomycin toxicity, currently improving. Patient was maintained on IV fluids; however, it looks like he developed some shortness of breath. Chest x-ray shows possible underlying CHF and fluids have been turned down. Blood pressure is not running low. The patient has good urine output. No nephrotoxic medications on board at this time. The patient is maintained on daptomycin and he is off of vancomycin. 2. Hypercalcemia with appropriately low PTH levels. Vitamin D level was not elevated. I do not see the angiotensin-converting enzyme level back. The patient did receive a dose of pamidronate yesterday. We will repeat labs in a.m. The patient is advised to avoid use of any TUMS or potassium supplementation. 3. Possible pneumonia, maintained on antibiotics. 4. History of cervical epidural abscess, maintained on antibiotics. Patient was on vancomycin as outpatient, currently on daptomycin and Zosyn. 5. Elevated troponins. No evidence of acute coronary event. 6. History of bipolar disorder. 7. Type 2 diabetes. PLAN: Encourage increased oral intake. Continue off of IV fluids. Repeat labs in a.m. Follow up on results of the SHANEKA level and 125-hydroxy vitamin D. Continue to avoid nephrotoxic agents. UA was completely benign. MMODL / IJN: [id number] /
[2019-12-15 20:46] LABS: Glucose,Whole Blood 149 mg/dL (75-99)
[2019-12-15] MEDS: TAMSULOSIN 0.4 MG CAP.ER.24H PO SCH (21:03)
[2019-12-15] MEDS: QUEtiapine 100 MG TAB PO SCH (21:03)
[2019-12-15] MEDS: GABAPENTIN 300 MG CAP PO SCH (21:03)
[2019-12-15] MEDS: traZODone HCL 100 MG TAB PO SCH (21:03)
--- NOTE | 2019-12-16 00:07 | PN ---
PROGRESS NOTE DATE OF SERVICE: 12/15/2019 REASON FOR FOLLOWUP: C7 paraspinal abscess. INTERVAL HISTORY: The patient is currently afebrile. Has been complaining of more shortness of breath today and pulling off his BiPAP. Denies having any chest pain or cough. No vomiting or no diarrhea or worsening pain to the neck area. PHYSICAL EXAMINATION: Blood pressure 147/84 with a pulse of 112, temperature 97.3. He is 94% on BiPAP. General description is a middle-aged male lying in bed in no distress. RESPIRATORY SYSTEM: Unlabored breathing, decreased breath sounds in the bases, no wheeze. HEART: S1, S2. Regular rate and rhythm. ABDOMEN: Soft, no tenderness. LABS: Hemoglobin 8.9, white count 12.3, BUN of 33, creatinine 2.48. DIAGNOSTIC IMPRESSION AND PLAN: 1. Patient with C7 perispinal abscess, status post drainage. Culture with Staph epi. Admitted to the hospital with acute kidney injury recently did show some improvement. The patient is currently on daptomycin to continue for a couple of weeks as his inflammatory markers are still elevated. If does not show any downward trend, will need to have a repeat CT or MRI. 2. Possible pneumonia with worsening respiratory failure covered with Zosyn. Try to obtain a sputum to narrow down antibiotics and monitor his clinical course closely. MMODL / IJN: [id number] / [id number]
[2019-12-16 06:18] LABS: Glucose,Whole Blood 153 mg/dL (75-99)
[2019-12-16] MEDS: CYCLOBENZAPRINE 5 MG TAB PO SCH ×2 (06:22→14:38)
[2019-12-16] MEDS: INSULIN ASPART (NovoLOG) 100 UNIT/ML VIAL SQ SCH ×4 (06:23→20:28)
[2019-12-16] MEDS: FENOFIBRATE 160 MG TAB PO SCH (09:08)
[2019-12-16] MEDS: FERROUS SULFATE 325 MG TAB PO SCH ×2 (09:08→20:29)
[2019-12-16] MEDS: lamoTRIgine 100 MG TAB PO SCH ×2 (09:08→20:29)
[2019-12-16] MEDS: amLODIPine 5 MG TAB PO SCH (09:08)
[2019-12-16] MEDS: FAMOTIDINE 20 MG TAB PO SCH (09:08)
[2019-12-16] MEDS: METOPROLOL TARTRATE 25 MG TAB PO SCH ×2 (09:08→20:29)
[2019-12-16] MEDS: LIDOCAINE 5% PATCH TOPICAL SCH (09:09)
[2019-12-16] MEDS: ENOXAPARIN 100 MG/ML SYRINGE SQ SCH ×3 (09:09→20:28)
[2019-12-16] MEDS: SENNOSIDES-DOCUSATE SODIUM 1 EACH TAB PO SCH (09:10)
[2019-12-16 09:58] LABS: Basophils # (A) 0.1 k/uL (0-0.2); Basophils % (A) 1 %; Eosinophils # (A) 0.4 k/uL (0-0.7); Eosinophils % (A) 3 %; HGB 10.2 gm/dL (13.0-17.5); Hypochromasia Marked; Lymphocytes # (A) 1.1 k/uL (1.0-4.8); Lymphocytes % (A) 9 %; MCHC 30.9 g/dL (31.0-37.0); MCV 87.3 fL (80.0-100.0); Mean Platelet Volume 6.9; Monocytes # (A) 0.5 k/uL (0-1.0); Monocytes % (A) 3 %; Neutrophils # (A) 11.1 k/uL (1.3-7.7); Neutrophils % (A) 83 %; Platelet Count 306 k/uL (150-450); RBC 3.78 m/uL (4.30-5.90); RDW 14.1 % (11.5-15.5); WBC 13.5 k/uL (3.8-10.6)
[2019-12-16 10:39] LABS: Calcium 12.7 mg/dL (8.4-10.2); Potassium 3.9 mmol/L (3.5-5.1)
[2019-12-16 11:40] LABS: Basophils # (A) 0.1 k/uL (0-0.2); Basophils % (A) 1 %; Eosinophils # (A) 0.3 k/uL (0-0.7); Eosinophils % (A) 3 %; HCT 27.5 % (39.0-53.0); HGB 9.9 gm/dL (13.0-17.5); Hypochromasia Moderate; Lymphocytes # (A) 0.9 k/uL (1.0-4.8); Lymphocytes % (A) 8 %; MCH 30.6 pg (25.0-35.0); MCHC 35.9 g/dL (31.0-37.0); MCV 85.2 fL (80.0-100.0); Mean Platelet Volume 8.6; Monocytes # (A) 0.5 k/uL (0-1.0); Monocytes % (A) 4 %; Neutrophils # (A) 8.9 k/uL (1.3-7.7); Neutrophils % (A) 83 %; Platelet Count 167 k/uL (150-450); RBC 3.23 m/uL (4.30-5.90); WBC 10.7 k/uL (3.8-10.6)
[2019-12-16 11:51] LABS: Glucose,Whole Blood 184 mg/dL (75-99)
[2019-12-16] MEDS: oxyCODONE ER 20 MG TAB.ER.12H PO SCH (12:28)
--- NOTE | 2019-12-16 12:32 | P.PN ---
Subjective Progress Note Date: 12/16/19 Principal diagnosis: Hypoxemia, shortness of breath, altered mentation 54-year-old white male patient of Dr. Wood with past medical history of hypertension, diabetes mellitus, obstructive sleep apnea on BiPAP, chronic back pain, chronic smoker, history of anxiety, depression, who was recently hospitalized from 10/30/2019 through 11/11/2019 when he came in for evaluation o f severe shoulder pain after she sustained a fall at home a few weeks following his cervical spine surgery on 10/11/2019 for traumatic T7 burst fracture. Computed tomography scan of the cervical spine revealed traumatic displacement of anterior cervical internal fixation from C6 to T1, and on 10/31/2019 patient underwent anterior cervical decompression and fusion of C6 through T1 extending up to C5 with revision corpectomy C7 with short cage extending from C6 through T1 and posterior cervical fusion of C5 through T2. Patient had an episode of chest pain during the last admission, was evaluated by cardiology, EKG and echocardiogram without significant findings, d-dimer was elevated, CTA chest was without evidence of pulmonary embolism. Patient was discharged to [facility]. Of note during his surgery. Patient was found to have a cervical epidural abscess positive for Staphylococcus epidermidis and he was discharged with a PICC line in place for vancomycin infusions for 6 weeks. On 12/09/2019 patient was brought into the emergency department for evaluation of altered mental status, and hypoxemia with O2 saturations of 88%, blood sugar was 66 patient was given half amp of glucose with improvement of his symptoms. His oral membranes are extremely dry, patient is unclear whether he has been eating or drinking well. He seems somewhat confused, he is currently on 5 L of oxygen, he has removed his oxygen, and he is desaturating into the low 80s, seems leth argic. Denies any fevers, denies any dyspnea. Chest x-ray showed patchy perihilar and basilar infiltrates with a concern for pneumonia. Brain CT showed no acute abnormality. EKG showed normal sinus rhythm. Labs showed a white blood cell count of 14.7, hemoglobin of 8.5, INR is 1.2, sodium is 134, potassium is 4.2, chloride is 97, CO2 31, BUN is 26, creatinine is 1.56, lactic acid 0.8, troponin is 1.650, proBNP is 1200, urinalysis without sign of infection. Current antibiotic coverage is in the form of azithromycin, Zosyn, and we resumed his vancomycin for recent cervical spine abscess. COVID 19 PCR was sent, pending at this time. Patient is afebrile, he is lethargic, but breathing is nonlabored, he is a poor historian, he is confused. On 12/10/2019 patient seen in follow-up on selective care unit, he is much more awake today, overnight she was the BiPAP with settings of 12/5 and FiO2 of 45%, he is currently on 4 L of oxygen, he sitting up on the edge of the bed, in some questions appropriately, denies any acute distress, his been afebrile overnight. He was started on IV Lasix, continues on antibiotics including vancomycin and Zosyn, no hemoptysis, no completed chest pain, echocardiogram is pending, patient was started on therapeutic doses of Lovenox, lung sounds are diminished, with crackles in the mid to bilateral lower lobes. His troponin is 2.73. Cardiology consultation is pending, coronavirus was negative On 12/11/2019 patient seen in follow-up on selective care unit, he is awake and alert, resting comfortably in bed, he is currently on 6 L of oxygen pulse ox 96%, vital signs stable, afebrile, breathing is nonlabored, no wheezing, no rhonchi, no significant cough or congestion. Much more awake on today's exam, his been wearing his BiPAP at night. Today's chest x-ray shows stable alveolar and interstitial edema, despite the diuretics. Afebrile, ID service is following, her cultures have shown no growth, current antibiotic coverage is in the form of daptomycin and Zosyn. His swallowing evaluation was within normal limits. The patient is seen today 12/12/2019 in follow-up on the selective care unit. He is currently sitting up at the bedside. Awake and alert in no acute distress. Breathing a bit easier today compared to yesterday. Maintaining O2 saturations in the 90s on 4 L high flow nasal cannula. He's been afebrile. Blood culture reveals no growth to date. Sodium 135. Potassium 3.2. Creatinine 2.36. He is continued on Zosyn and daptomycin. Remains on bronchodilators. The patient is seen today 12/13/2019 in follow-up on the selective care unit. He is currently resting comfortably in bed. Awake and alert in no acute d istress. He denies any worsening shortness of breath, cough or congestion. He is maintaining good O2 saturation in the 90s on 4 L per nasal cannula. He does desaturate into the 70s on room air. He's afebrile. Blood culture reveals no growth. White count 12.6. Hemoglobin 10.2. Sodium 1:30. Potassium 4.0. Creatinine 2.81. He remains on DuoNeb inhalations, daptomycin, Zosyn. Chest x- ray reveals persistent prominence of pulmonary interstitium. Right infrahilar infiltrate persists although is improving. Small effusions. Patient is seen today 12/16/2019 in follow-up on the selective care unit. He is currently resting comfortably in bed. Awake and alert in no acute distress. He denies any worsening shortness of breath, cough or congestion. He appears alert and oriented at times and other times he appears confused. Maintaining O2 saturations in the 90s on 6 L high flow nasal cannula, alternating with BiPAP at 45% FiO2. He is afebrile. Blood cultures reveal no growth. White count 13.5. Hemoglobin 10.2. Sedimentation 4. Potassium 3.9. Creatinine 2.23. Remains on bronchodilators. Currently on daptomycin. Lovenox for DVT prophylaxis. Objective - Vital Signs Vital signs: Vital Signs Temp 97.9 F 12/16/19 07:54 Pulse 101 H 12/16/19 11:32 Resp 18 12/16/19 11:32 BP 159/85 12/16/19 11:32 Pulse Ox 94 L 12/16/19 11:32 Intake & Output 12/15/19 12/16/19 12/16/19 18:59 06:59 18:59 Intake Total 0 175 150 Output Total 400 1000 Balance -400 -825 150 Weight 98 kg Intake: IV 100 50 DAPTOmycin 600 mg In 50 Sodium Chloride 0.9% 50 ml @ 100 mls/hr IVPB Q24HR ASHLEY Rx#:[id number] Piperacillin-Tazobactam 3 100 .375 gm In Sodium Chloride 0.9% 100 ml @ 25 mls/hr IVPB Q8HR ASHLEY Rx# :[id number] Intake, IV Titration 75 Amount Sodium Chloride 0.9% 1, 75 000 ml @ 75 mls/hr IV . [id number] ASHLEY Rx#:[id number] Oral 0 100 Output: Urine 400 1000 Other: Voiding Method Urinal Urinal Urinal # Voids 0 1 - Exam GENERAL EXAM: Alert, 54-year-old white male, appears older than stated age, on 4 L of oxygen with pulse ox of 94%, comfortable in no apparent distress. HEAD: Normocephalic/atraumatic. EYES: Normal reaction of pupils, equal size. Conjunctiva pink, sclera white. NOSE: Clear with pink turbinates. THROAT: No erythema or exudates. NECK: No masses, no JVD, no thyroid enlargement, no adenopathy. Posterior neck incision is clean dry and intact. Patient has a neck collar in place CHEST: No chest wall deformity. Symmetrical expansion. LUNGS: Equal air entry with coarse crackles at bilateral lower and mid lungs CVS: Regular rate and rhythm, normal S1 and S2, no gallops, no murmurs, no rubs ABDOMEN: Soft, nontender. No hepatosplenomegaly, normal bowel sounds, no guarding or rigidity. EXTREMITIES: No clubbing, no edema, no cyanosis, 2+ pulses and upper and lower extremities. MUSCULOSKELETAL: Muscle strength and tone normal. SPINE: No scoliosis or deformity SKIN: No rashes CENTRAL NERVOUS SYSTEM: Alert and oriented -3. No focal deficits, tone is normal in all 4 extremities. PSYCHIATRIC: Alert and oriented -3. Appropriate affect. Intact judgment and insight - Labs CBC & Chem 7: 12/16/19 09:47 12/16/19 09:47 Labs: Abnormal Lab Results - Last 24 Hours (Table) 12/15/19 12/15/19 12/16/19 Range/Units 16:41 20:44 06:16 WBC (3.8-10.6) k/uL RBC (4.30-5.90) m/uL Hgb (13.0-17.5) gm/dL Hct (39.0-53.0) % MCHC (31.0-37.0) g/dL Neutrophils # (1.3-7.7) k/uL Lymphocytes # (1.0-4.8) k/uL Sodium (137-145) mmol/L Chloride (98-107) mmol/L BUN (9-20) mg/dL Creatinine (0.66-1.25) mg/dL Glucose (74-99) mg/dL POC Glucose (mg/dL) 200 H 149 H 153 H (75-99) mg/dL Calcium (8.4-10.2) mg/dL 12/16/19 12/16/19 12/16/19 Range/Units 06:45 09:47 09:47 WBC 10.7 H 13.5 H (3.8-10.6) k/uL RBC 3.23 L 3.78 L (4.30-5.90) m/uL Hgb 9.9 L 10.2 L (13.0-17.5) gm/dL Hct 27.5 L 33.0 L (39.0-53.0) % MCHC 30.9 L (31.0-37.0) g/dL Neutrophils # 8.9 H 11.1 H (1.3-7.7) k/uL Lymphocytes # 0.9 L (1.0-4.8) k/uL Sodium 134 L (137-145) mmol/L Chloride 94 L (98-107) mmol/L BUN 35 H (9-20) mg/dL Creatinine 2.23 H (0.66-1.25) mg/dL Glucose 168 H (74-99) mg/dL POC Glucose (mg/dL) (75-99) mg/dL Calcium 12.7 H (8.4-10.2) mg/dL 12/16/19 Range/Units 11:48 WBC (3.8-10.6) k/uL RBC (4.30-5.90) m/uL Hgb (13.0-17.5) gm/dL Hct (39.0-53.0) % MCHC (31.0-37.0) g/dL Neutrophils # (1.3-7.7) k/uL Lymphocytes # (1.0-4.8) k/uL Sodium (137-145) mmol/L Chloride (98-107) mmol/L BUN (9-20) mg/dL Creatinine (0.66-1.25) mg/dL Glucose (74-99) mg/dL POC Glucose (mg/dL) 184 H (75-99) mg/dL Calcium (8.4-10.2) mg/dL Microbiology - Last 24 Hours (Table) 12/09/19 13:53 Blood Culture - Final Blood No Growth after 144 hours Assessment and Plan Assessment: #1. Acute on chronic hypoxic respiratory failure related to possibility of pneumonia, chest x-ray showed patchy perihilar and basilar infiltrates, rule out possibility of aspiration, remains on daptomycin #2. Altered mental status likely related to metabolic encephalopathy, improved #3. Elevated troponin, EKG without significant findings, recent echocardiogram showed preserved EF of 55-60%, no significant valvular disease, PA pressure of 26.3 mmHg. Cardiology consultations pending #4. Recent hospitalization for cervical spine epidural abscess of anterior cervical C7, and [facility] vancom[facility] infusions for 6 weeks and which he continues #5. History of cervical myelopathy is status post surgical revision of C6 through T1 and corpectomy of C7 due to trauma, following a fall. Patient had open reduction and internal fixation carpectomy of C7 and fusion of C6 to T1 for recent C7 burst fracture on 10/11/2019 #6. Acute kidney injury, worsening related to diuretic therapy #7. Obstructive sleep apnea on BiPAP therapy at home #8. Chronic smoker, unknown whether the patient is still smoking #9. Suspect underlying history of COPD #10. Diabetes mellitus type 2 #11. Hypertension #12. History of pancreatitis #13. History of anxiety, depression #14. Poor overall functional performance based on the above-mentioned multiple comorbidities Plan: The patient was seen and evaluated by Dr. Sifuentes He has been slow to progress Continue the current treatment plan Titrate down the FiO2 as tolerated Plan is for discharge to [facility] once cleared medically We'll continue to follow I, the cosigning physician, performed a history & physical examination of the patient. Lungs sounds with coarse crackles in the bilateral bases. Maintaining good O2 saturations in the 90s on 4 L high flow nasal cannula. I discussed the assessment and plan of care with my nurse practitioner, Isela Prasad. I attest to the above note as dictated by her.
--- NOTE | 2019-12-16 13:10 | P.PN ---
Subjective History of presenting complaint:from records This is a 54-year-old patient who follows with Dr. thomas from [place]. Chronic stable medical conditions include diabetes mellitus type II on insulin pump.,GERD, hypertension, obstructive sleep apnea uses CPAP, chronic pancreatitis, bipolar disorder and chronic low back pain. Known, foraminal s tenosis at C6-C7 and compression fractures C7 with left arm weakness or necropathy. underwent cervical spine surgery by Dr. Shanks-on October 10 2019. Patient is here in November-took a fall with displacement of the internal fixation and graft at C6 to T1. Patient underwent surgery in October 30. With removal of hardware and revision fixation At multiple levels. Local abscess was cleaned out. Cultures growing Staphylococcus epidermidis. Has a cervical collar since then. Patient is brought in from the EMS from the rehab. Patient is found to be bit confused. Had oxygen saturation 88% and a blood glucose down to 66. In the ER he reported feeling weak and tired. Not sure about his oral intake. No fever reported. Admitted with acute non-Q-wave LA, acute congestive heart failure exacerbation, possible pneumonia. Put on IV Lasix. Therapeutic Lovenox dose. Today-less tired. Declining food. Antibiotic changed to daptomycin per ID. subjective 12/12/2019 this is a pleasant 54 years old male with multiple medical problems admitted for pneumonia and altered mental status, Today he is more awake and alert, is still complaining from some dyspnea and occasional cough.no significant chest pain.oxygen saturation is 92% on 4 L oxygen. Nasal cannula. Kolby Vitas looks stable. Creatinine is went up to 2.3,it was 1.09 last month. patientis on daptomycin and Zosyn as per ID team recommendation. Pulmonary team on the case. Consult nephrology team. 12/13/2019 Patient still have her collar and a Place, his breathing quietly and with no coughing. However on 4 L oxygen via high flow nasal cannula. He was saturating 75% on room air this morning. No abdominal pain, no change in bowel habits.WBCs trending down to 12.6 K,creatinine is up to 2.8 Chest x-ray: Persistent right infrahilar infiltrate 12/14/2019 Patient breathing quietly, normal respiratory issue, no abdominal pain or nausea vomiting. He is fully awake and oriented. Still have hard collar in place for his recent spine infection and disease. He is hemodynamically stable. He saturating 92% on 4 L oxygen via nasal cannula rest of vitals are stable, he is a slightly tachypneic WBCs is normal today at 10.6 K, hemoglobin 8.7 inches similar to 3 days ago. Creatinine is slightly less at 2.6. Chain Testing [employer] Operator team on the case His calcium is elevated at 11.5, PTH intact is low less than 2. Further workup is pending Chest x-ray from yesterday showing persistent infiltration. 12/15/2019 Patient is breathing quietly, no respiratory or abdominal complaints. He has pain in his shoulders and he agrees for lidocaine patch. his breathing quietly. He is saturating 91% on 4 L oxygen via nasal cannula for slowly to improve pneumonia. Nephrology service on the case for hypercalcemia and he got 1 dose of pamidro keyana IV yesterday. His creatinine trended down slowly to 2.4 today.is also on normal saline at 75 mL/h. Parathyroid hormone was low. Further recommendation per trust advisor. WBC 12.3 K.C-reactive protein is a stable at 220.5 which is elevated. Calcium today is 12.3 which is still elevated.hemoglobin is stable at 8.9. Patient agrees to go to subacute rehab upon discharge cartilage team were in the case for high troponin.I discussed the case with cartilage teamyesterday, no need to repeat stress test currently. They signed off the case 12/16/2019 patient is a little bit more dyspneic today compared to yesterday. He has difficulty finishing his sentences.he is saturating 94% on 6 L high flow cannula, also occasionally he uses BiPAP he is slightly tachycardic at 101 and a breathing rate 18-20. patient remains on broad-spectrum antibiotics with Zosyn and daptomycin. Pulmonary team on the case trust advisor team on the case for hypercalcemia and acute kidney injury, creatinine M is improving gradually to 2.2 today. IV fluids were discontinued yesterday. Patient also complained from constipation, he had no bowel movement for 2 days however he is passing gas. He is eating well. No abdominal pain or nausea vomiting. Objective - Vital Signs Vital signs: Vital Signs Temp 97.9 F 12/16/19 07:54 Pulse 101 H 12/16/19 11:32 Resp 18 12/16/19 11:32 BP 159/85 10/14/20 11:32 Pulse Ox 94 L 12/16/19 11:32 Intake & Output 12/15/19 12/16/19 12/16/19 18:59 06:59 18:59 Intake Total 0 175 150 Output Total 400 1000 Balance -400 -825 150 Weight 98 kg Intake: IV 100 50 DAPTOmycin 600 mg In 50 Sodium Chloride 0.9% 50 ml @ 100 mls/hr IVPB Q24HR ASHLEY Rx#:[id number] Piperacillin-Tazobactam 3 100 .375 gm In Sodium Chloride 0.9% 100 ml @ 25 mls/hr IVPB Q8HR ASHLEY Rx# :[id number] Intake, IV Titration 75 Amount Sodium Chloride 0.9% 1, 75 000 ml @ 75 mls/hr IV . [id number] ASHLEY Rx#:[id number] Oral 0 100 Output: Urine 400 1000 Other: Voiding Method Urinal Urinal Urinal # Voids 0 1 - Exam GENERAL: The patient is alert and oriented x3, not in any acute distress. Well developed, well nourished. HEENT: Pupils are round and equally reacting to light. EOMI. No scleral icterus. No conjunctival pallor. Normocephalic, atraumatic. No pharyngeal erythema. No thyromegaly. CARDIOVASCULAR: S1 and S2 present. No murmurs, rubs, or gallops. PULMONARY: Chest is clear to auscultation, no wheezing or crackles. ABDOMEN: Soft, nontender, nondistended, normoactive bowel sounds. No palpable organomegaly. MUSCULOSKELETAL: No joint swelling or deformity. EXTREMITIES: No cyanosis, clubbing, or pedal edema. NEUROLOGICAL: Gross neurological examination did not reveal any focal deficits. SKIN: No rashes. no petechiae. - Labs CBC & Chem 7: 12/16/19 09:47 12/16/19 09:47 Labs: Abnormal Lab Results - Last 24 Hours (Table) 12/15/19 12/15/19 12/16/19 Range/Units 16:41 20:44 06:16 WBC (3.8-10.6) k/uL RBC (4.30-5.90) m/uL Hgb (13.0-17.5) gm/dL Hct (39.0-53.0) % MCHC (31.0-37.0) g/dL Neutrophils # (1.3-7.7) k/uL Lymphocytes # (1.0-4.8) k/uL Sodium (137-145) mmol/L Chloride (98-107) mmol/L BUN (9-20) mg/dL Creatinine (0.66-1.25) mg/dL Glucose (74-99) mg/dL POC Glucose (mg/dL) 200 H 149 H 153 H (75-99) mg/dL Calcium (8.4-10.2) mg/dL 12/16/19 12/16/19 12/16/19 Range/Units 06:45 09:47 09:47 WBC 10.7 H 13.5 H (3.8-10.6) k/uL RBC 3.23 L 3.78 L (4.30-5.90) m/uL Hgb 9.9 L 10.2 L (13.0-17.5) gm/dL Hct 27.5 L 33.0 L (39.0-53.0) % MCHC 30.9 L (31.0-37.0) g/dL Neutrophils # 8.9 H 11.1 H (1.3-7.7) k/uL Lymphocytes # 0.9 L (1.0-4.8) k/uL Sodium 134 L (137-145) mmol/L Chloride 94 L (98-107) mmol/L BUN 35 H (9-20) mg/dL Creatinine 2.23 H (0.66-1.25) mg/dL Glucose 168 H (74-99) mg/dL POC Glucose (mg/dL) (75-99) mg/dL Calcium 12.7 H (8.4-10.2) mg/dL 12/16/19 Range/Units 11:48 WBC (3.8-10.6) k/uL RBC (4.30-5.90) m/uL Hgb (13.0-17.5) gm/dL Hct (39.0-53.0) % MCHC (31.0-37.0) g/dL Neutrophils # (1.3-7.7) k/uL Lymphocytes # (1.0-4.8) k/uL Sodium (137-145) mmol/L Chloride (98-107) mmol/L BUN (9-20) mg/dL Creatinine (0.66-1.25) mg/dL Glucose (74-99) mg/dL POC Glucose (mg/dL) 184 H (75-99) mg/dL Calcium (8.4-10.2) mg/dL Microbiology - Last 24 Hours (Table) 12/09/19 13:53 Blood Culture - Final Blood No Growth after 144 hours Assessment and Plan Assessment: -Possible pneumonia, suspect gram-negative organism -Acute congestive heart failure exacerbation-some improvement-on IV Lasix -acute kidney injury -Hypercalcemia -elevated troponin, mostly secondary to renal disease and infectious process. Cannot rule out coronary artery disease -recent history of C7 anterior cervical epidural abscess, patient was discharged to [facility] on vancomycin for 6 weeks. He continue on antibiotics daptomycin and Zosyn currently. -Diabetes mellitus type 2, uncontrolled with , hypoglycemia . better -GERD -Essential hypertension -Obstructive sleep apnea uses a BiPAP machine -Bipolar disorder -Chronic low back pain -Obesity BMI 30.6 -COPD in a current smoker -chronic pancreatitis. -Acute kidney injury could be from vancomycin Plan: continue with antibiotics as per infectious disease recommendation, currently on daptomycin and Zosyn discontinue IV Lasix 60 mg IV every 8 hours, continue with gentle hydration. Monitor creatinineand calcium and Follow-up recommendation of trust advisor team. Follow-up workup for hypercalcemia continue to monitor oxygen level, continue with bronchodilator and oxygen as needed. Pulmonary serviceof the case Elevated troponin,cardiology on the case and initiallyrecommended stress test on Saturday, however yesterday's they recommended no need to repeat stress test currently. No aspirin on Plavix currently. Continue with Lovenox therapeutic dose DVT prophylaxis: Lovenox GI prophylaxis Pepcid Prognosis is guarded
[2019-12-16] MEDS ORDERED: LIDOCAINE 5% PATCH TOPICAL SCH (13:15)
[2019-12-16 13:49] LABS: Calcium 12.3 mg/dL (8.4-10.2); Potassium 3.7 mmol/L (3.5-5.1)
[2019-12-16] MEDS ORDERED: SODIUM CHLORIDE 0.9% 250 ML with PAMIDRONATE 60 MG IV ONE ×2 (14:00)
--- NOTE | 2019-12-16 15:32 | PN ---
PROGRESS NOTE Patient is seen for followup for acute kidney injury and hypercalcemia. His calcium remains elevated. Patient did receive a dose of pamidronate. He was maintained on IV fluids as well. However, his calcium continues to increase. This morning patient is sitting up in a chair. He denies any significant complaints. No chest pains or shortness of breath. IV fluids are now discontinued. The patient is maintained on daptomycin. He has good urine output. EXAMINATION: Today blood pressure is 159/85, heart rate 101 per minute he is afebrile. Examination of the heart S1, S2. Examination of the lungs, bilateral breath sounds are heard. No crackles or wheezing is heard. Abdomen is soft, nontender. Examination of the lower extremities shows no significant edema. YARD STOCKER exam grossly intact. LABS: Show sodium 134, potassium 3.9, chloride 94, CO2 is 26, BUN 35, creatinine 2.23, calcium 12.7, hemoglobin 10.2 g/dL. ASSESSMENT: 1. Acute kidney injury associated with hypercalcemia, status post IV fluids. Serum creatinine slightly improved although remains elevated. The patient has good urine output. UA is completely benign and ultrasound of the kidneys was unremarkable as well. Continue off of IV fluids secondary to evidence of mild CHF on chest x-ray. No nephrotoxic agents on board. There also is probably a component of vancomycin toxicity from prior to admission. Currently he is off of it. 2. Hypercalcemia with appropriately low PTH levels. All other workup is negative including Sameer level, 25 hydroxy vitamin D and 125 hydroxy vitamin D level as well. Serum and urine immunofixation does not show any evidence of monoclonal proteins. Patient did get 1 dose of pamidronate. I will repeat the pamidronate again as calcium remains elevated. There is probably a component of immobilization causing the hypercalcemia. Patient is advised to avoid Tums calcium supplementation. 3. History of cervical epidural abscess, status post vancomycin, currently maintained on daptomycin. 4. Hypertension, currently controlled. 5. Possible pneumonia, maintained on antibiotics. PLAN: Repeat pamidronate. Continue off of IV fluids. May continue with daptomycin. Repeat labs in a.m. Avoid any nephrotoxic agents. The patient will need followup as outpatient. Again, his UA is benign and ultrasound is unremarkable. MMODL / IJN: [id number] /
[2019-12-16 16:53] LABS: Glucose,Whole Blood 158 mg/dL (75-99)
[2019-12-16] MEDS: IPRATROPIUM-ALBUTEROL 3 ML NEB INHALATION PRN (17:38)
[2019-12-16 20:17] LABS: Glucose,Whole Blood 146 mg/dL (75-99)
[2019-12-16] MEDS: TAMSULOSIN 0.4 MG CAP.ER.24H PO SCH (20:29)
[2019-12-16 20:43] LABS: Hemoglobin A1C 8.2 % (4.0-6.0)
[2019-12-16] MEDS: QUEtiapine 100 MG TAB PO SCH (23:54)
--- NOTE | 2019-12-17 00:30 | PN ---
PROGRESS NOTE DATE OF SERVICE: 12/16/2019 REASON FOR FOLLOWUP: C7 paraspinal abscess. INTERVAL HISTORY: The patient is currently afebrile. The patient is still requiring BiPAP, hemodynamically stable though. Complaining did not have any bowel movement. No chest pain. No abdominal pain or worsening pain to the neck area. PHYSICAL EXAMINATION: Blood pressure 158/91 with a pulse of 112, temperature 97.4. General description is a middle-aged male up in the chair in no distress. RESPIRATORY SYSTEM: Unlabored breathing, decreased breath sounds in the bases, no wheeze. HEART: S1, S2. Regular rate and rhythm. ABDOMEN: Soft, no tenderness. LABS: Hemoglobin is 10.2, white count 13.5, BUN of 25, creatinine is 2.20. Blood culture has been negative. DIAGNOSTIC IMPRESSION AND PLAN: 1. Patient with C7 paraspinal abscess status post surgical drainage and removal of the hardware on last admission. Culture positive for Staphylococcus epidermidis treated with vancomycin. Subsequently admitted to the hospital with acute kidney injury and the patient is currently off the vancomycin and is being treated with daptomycin to continue. Kidney function showed improvement. 2. Possible pneumonia covered with Zosyn and continue supportive care. MMODL / IJN: [id number] /
[2019-12-17] MEDS: GABAPENTIN 300 MG CAP PO SCH (01:20)
[2019-12-17] MEDS: CYCLOBENZAPRINE 5 MG TAB PO SCH ×4 (01:20→21:24)
[2019-12-17] MEDS: oxyCODONE ER 20 MG TAB.ER.12H PO SCH ×2 (01:20→11:47)
[2019-12-17] MEDS: traZODone HCL 100 MG TAB PO SCH ×2 (01:25→21:18)
[2019-12-17 03:13] LABS: ABG Base Excess 7.4 mmol/L; ABG HCO3 31 mmol/L (21-25); ABG Oxygen Saturation 95.4 % (94-97); ABG PCO2 44 mmHg (35-45); ABG PH 7.46 (7.35-7.45); ABG PO2 70 mmHg (83-108); ABG TCO2 33 mmol/L (19-24); Allen Test Performed? Yes
[2019-12-17 06:25] LABS: Glucose,Whole Blood 151 mg/dL (75-99)
[2019-12-17] MEDS: INSULIN ASPART (NovoLOG) 100 UNIT/ML VIAL SQ SCH ×4 (06:48→21:19)
[2019-12-17] MEDS: IPRATROPIUM-ALBUTEROL 3 ML NEB INHALATION PRN ×4 (08:25→19:51)
[2019-12-17 08:51] LABS: Basophils % (A) 0 %; Eosinophils # (A) 0.2 k/uL (0-0.7); Eosinophils % (A) 2 %; HCT 26.8 % (39.0-53.0); Hypochromasia Marked; Lymphocytes % (A) 10 %; MCH 26.6 pg (25.0-35.0); MCHC 30.9 g/dL (31.0-37.0); Mean Platelet Volume 7.3; Monocytes # (A) 0.4 k/uL (0-1.0); Monocytes % (A) 4 %; Neutrophils # (A) 8.9 k/uL (1.3-7.7); Neutrophils % (A) 84 %; Platelet Count 255 k/uL (150-450); RBC 3.11 m/uL (4.30-5.90); RDW 14.3 % (11.5-15.5); WBC 10.6 k/uL (3.8-10.6)
[2019-12-17 09:08] LABS: HGB 8.3 gm/dL (13.0-17.5)
[2019-12-17] MEDS: FENOFIBRATE 160 MG TAB PO SCH (09:36)
[2019-12-17] MEDS: ENOXAPARIN 100 MG/ML SYRINGE SQ SCH ×2 (09:36→21:24)
[2019-12-17] MEDS: METOPROLOL TARTRATE 25 MG TAB PO SCH ×2 (09:36→21:18)
[2019-12-17] MEDS: FERROUS SULFATE 325 MG TAB PO SCH ×2 (09:36→21:18)
[2019-12-17] MEDS: FAMOTIDINE 20 MG TAB PO SCH (09:36)
[2019-12-17] MEDS: lamoTRIgine 100 MG TAB PO SCH ×2 (09:36→21:18)
[2019-12-17] MEDS: amLODIPine 5 MG TAB PO SCH (09:36)
[2019-12-17] MEDS: SENNOSIDES-DOCUSATE SODIUM 1 EACH TAB PO SCH (09:37)
[2019-12-17] MEDS: LIDOCAINE 5% PATCH TOPICAL SCH (09:37)
[2019-12-17] MEDS ORDERED: FUROSEMIDE 10 MG/ML 4 ML VIAL IV STA (10:07)
[2019-12-17 10:47] LABS: Calcium 11.6 mg/dL (8.4-10.2); Potassium 3.6 mmol/L (3.5-5.1)
[2019-12-17 12:02] LABS: Glucose,Whole Blood 176 mg/dL (75-99)
--- NOTE | 2019-12-17 13:07 | P.PN ---
Subjective Progress Note Date: 12/17/19 Principal diagnosis: Hypoxemia, shortness of breath, altered mentation 54-year-old white male patient of Dr. Wood with past medical history of hypertension, diabetes mellitus, obstructive sleep apnea on BiPAP, chronic back pain, chronic smoker, history of anxiety, depression, who was recently hospitalized from 10/30/2019 through 11/11/2019 when he came in for evaluation o f severe shoulder pain after she sustained a fall at home a few weeks following his cervical spine surgery on 10/11/2019 for traumatic T7 burst fracture. Computed tomography scan of the cervical spine revealed traumatic displacement of anterior cervical internal fixation from C6 to T1, and on 10/31/2019 patient underwent anterior cervical decompression and fusion of C6 through T1 extending up to C5 with revision corpectomy C7 with short cage extending from C6 through T1 and posterior cervical fusion of C5 through T2. Patient had an episode of chest pain during the last admission, was evaluated by cardiology, EKG and echocardiogram without significant findings, d-dimer was elevated, CTA chest was without evidence of pulmonary embolism. Patient was discharged to [facility]. Of note during his surgery. Patient was found to have a cervical epidural abscess positive for Staphylococcus epidermidis and he was discharged with a PICC line in place for vancomycin infusions for 6 weeks. On 12/09/2019 patient was brought into the emergency department for evaluation of altered mental status, and hypoxemia with O2 saturations of 88%, blood sugar was 66 patient was given half amp of glucose with improvement of his symptoms. His oral membranes are extremely dry, patient is unclear whether he has been eating or drinking well. He seems somewhat confused, he is currently on 5 L of oxygen, he has removed his oxygen, and he is desaturating into the low 80s, seems leth argic. Denies any fevers, denies any dyspnea. Chest x-ray showed patchy perihilar and basilar infiltrates with a concern for pneumonia. Brain CT showed no acute abnormality. EKG showed normal sinus rhythm. Labs showed a white blood cell count of 14.7, hemoglobin of 8.5, INR is 1.2, sodium is 134, potassium is 4.2, chloride is 97, CO2 31, BUN is 26, creatinine is 1.56, lactic acid 0.8, troponin is 1.650, proBNP is 1200, urinalysis without sign of infection. Current antibiotic coverage is in the form of azithromycin, Zosyn, and we resumed his vancomycin for recent cervical spine abscess. COVID 19 PCR was sent, pending at this time. Patient is afebrile, he is lethargic, but breathing is nonlabored, he is a poor historian, he is confused. On 12/10/2019 patient seen in follow-up on selective care unit, he is much more awake today, overnight she was the BiPAP with settings of 12/5 and FiO2 of 45%, he is currently on 4 L of oxygen, he sitting up on the edge of the bed, in some questions appropriately, denies any acute distress, his been afebrile overnight. He was started on IV Lasix, continues on antibiotics including vancomycin and Zosyn, no hemoptysis, no completed chest pain, echocardiogram is pending, patient was started on therapeutic doses of Lovenox, lung sounds are diminished, with crackles in the mid to bilateral lower lobes. His troponin is 2.73. Cardiology consultation is pending, coronavirus was negative On 12/11/2019 patient seen in follow-up on selective care unit, he is awake and alert, resting comfortably in bed, he is currently on 6 L of oxygen pulse ox 96%, vital signs stable, afebrile, breathing is nonlabored, no wheezing, no rhonchi, no significant cough or congestion. Much more awake on today's exam, his been wearing his BiPAP at night. Today's chest x-ray shows stable alveolar and interstitial edema, despite the diuretics. Afebrile, ID service is following, her cultures have shown no growth, current antibiotic coverage is in the form of daptomycin and Zosyn. His swallowing evaluation was within normal limits. The patient is seen today 12/12/2019 in follow-up on the selective care unit. He is currently sitting up at the bedside. Awake and alert in no acute distress. Breathing a bit easier today compared to yesterday. Maintaining O2 saturations in the 90s on 4 L high flow nasal cannula. He's been afebrile. Blood culture reveals no growth to date. Sodium 135. Potassium 3.2. Creatinine 2.36. He is continued on Zosyn and daptomycin. Remains on bronchodilators. The patient is seen today 12/13/2019 in follow-up on the selective care unit. He is currently resting comfortably in bed. Awake and alert in no acute d istress. He denies any worsening shortness of breath, cough or congestion. He is maintaining good O2 saturation in the 90s on 4 L per nasal cannula. He does desaturate into the 70s on room air. He's afebrile. Blood culture reveals no growth. White count 12.6. Hemoglobin 10.2. Sodium 1:30. Potassium 4.0. Creatinine 2.81. He remains on DuoNeb inhalations, daptomycin, Zosyn. Chest x- ray reveals persistent prominence of pulmonary interstitium. Right infrahilar infiltrate persists although is improving. Small effusions. Patient is seen today 12/16/2019 in follow-up on the selective care unit. He is currently resting comfortably in bed. Awake and alert in no acute distress. He denies any worsening shortness of breath, cough or congestion. He appears alert and oriented at times and other times he appears confused. Maintaining O2 saturations in the 90s on 6 L high flow nasal cannula, alternating with BiPAP at 45% FiO2. He is afebrile. Blood cultures reveal no growth. White count 13.5. Hemoglobin 10.2. Sedimentation 4. Potassium 3.9. Creatinine 2.23. Remains on bronchodilators. Currently on daptomycin. Lovenox for DVT prophylaxis. The patient is seen today 12/17/2019 in follow-up on the selective care unit. He is currently resting in bed. He is on the BiPAP. Currently 12/5 and 45% FiO2. Apparently the patient had pulled his BiPAP off earlier and was found on the floor. At that time his O2 saturation was in the 70s. Recovered and back at 97%. Arterial blood gases reveal a pO2 of 70, pCO2 44, pH 7.46. Blood cultures reveal no growth. White count 10.6. Hemoglobin 8.3. Sodium 134. Potassium 3.6. Bicarb 33. Creatinine 2.18. He remains on DuoNeb inhalations, antibiotics in the form of daptomycin. He is on Lovenox. Received Lasix IVP 1 today. Objective - Vital Signs Vital signs: Vital Signs Temp 98.3 F 12/17/19 08:00 Pulse 107 H 12/17/19 12:00 Resp 19 12/17/19 12:00 BP 151/84 10/15/20 12:00 Pulse Ox 97 12/17/19 12:00 Intake & Output 12/16/19 12/17/19 12/17/19 18:59 06:59 18:59 Intake Total 150 50 Output Total 440 500 Balance 150 -440 -450 Weight 99 kg Intake: IV 50 50 DAPTOmycin 600 mg In 50 50 Sodium Chloride 0.9% 50 ml @ 100 mls/hr IVPB Q24HR [facility] Rx#:[id number] Oral 100 Output: Urine 440 500 Other: Voiding Method Urinal Urinal # Voids 2 - Exam GENERAL EXAM: Alert, 54-year-old male, appears older than stated age, on BiPAP 02/05 on 45% FiO2 with O2 saturation 97%, comfortable in no apparent distress. HEAD: Normocephalic/atraumatic. EYES: Normal reaction of pupils, equal size. Conjunctiva pink, sclera white. NOSE: Clear with pink turbinates. THROAT: No erythema or exudates. NECK: No masses, no JVD, no thyroid enlargement, no adenopathy. Posterior neck incision is clean dry and intact. Patient has a neck collar in place CHEST: No chest wall deformity. Symmetrical expansion. LUNGS: Equal air entry with coarse crackles at bilateral lower and mid lungs CVS: Regular rate and rhythm, normal S1 and S2, no gallops, no murmurs, no rubs ABDOMEN: Soft, nontender. No hepatosplenomegaly, normal bowel sounds, no guarding or rigidity. EXTREMITIES: No clubbing, no edema, no cyanosis, 2+ pulses and upper and lower extremities. MUSCULOSKELETAL: Muscle strength and tone normal. SPINE: No scoliosis or deformity SKIN: No rashes CENTRAL NERVOUS SYSTEM: No focal deficits, tone is normal in all 4 extremities. PSYCHIATRIC: Alert and oriented -3. Appropriate affect. Intact judgment and insight - Labs CBC & Chem 7: 12/17/19 07:52 12/17/19 07:52 Labs: Abnormal Lab Results - Last 24 Hours (Table) 12/16/19 12/16/19 12/16/19 Range/Units 06:45 12:51 16:51 RBC (4.30-5.90) m/uL Hgb (13.0-17.5) gm/dL Hct (39.0-53.0) % MCHC (31.0-37.0) g/dL Neutrophils # (1.3-7.7) k/uL ABG pH (7.35-7.45) ABG pO2 (83-108) mmHg ABG HCO3 (21-25) mmol/L ABG Total CO2 (19-24) mmol/L Sodium 133 L (137-145) mmol/L Chloride 93 L (98-107) mmol/L Carbon Dioxide 32 H (22-30) mmol/L BUN 35 H (9-20) mg/dL Creatinine 2.20 H (0.66-1.25) mg/dL Glucose 178 H (74-99) mg/dL POC Glucose (mg/dL) 158 H (75-99) mg/dL Hemoglobin A1c 8.2 H (4.0-6.0) % Calcium 12.3 H (8.4-10.2) mg/dL 12/16/19 12/17/19 12/17/19 Range/Units 20:16 03:10 06:24 RBC (4.30-5.90) m/uL Hgb (13.0-17.5) gm/dL Hct (39.0-53.0) % MCHC (31.0-37.0) g/dL Neutrophils # (1.3-7.7) k/uL ABG pH 7.46 H (7.35-7.45) ABG pO2 70 L (83-108) mmHg ABG HCO3 31 H (21-25) mmol/L ABG Total CO2 33 H (19-24) mmol/L Sodium (137-145) mmol/L Chloride (98-107) mmol/L Carbon Dioxide (22-30) mmol/L BUN (9-20) mg/dL Creatinine (0.66-1.25) mg/dL Glucose (74-99) mg/dL POC Glucose (mg/dL) 146 H 151 H (75-99) mg/dL Hemoglobin A1c (4.0-6.0) % Calcium (8.4-10.2) mg/dL 12/17/19 12/17/19 12/17/19 Range/Units 07:52 07:52 11:45 RBC 3.11 L (4.30-5.90) m/uL Hgb 8.3 L D (13.0-17.5) gm/dL Hct 26.8 L (39.0-53.0) % MCHC 30.9 L (31.0-37.0) g/dL Neutrophils # 8.9 H (1.3-7.7) k/uL ABG pH (7.35-7.45) ABG pO2 (83-108) mmHg ABG HCO3 (21-25) mmol/L ABG Total CO2 (19-24) mmol/L Sodium 134 L (137-145) mmol/L Chloride 93 L (98-107) mmol/L Carbon Dioxide 33 H (22-30) mmol/L BUN 35 H (9-20) mg/dL Creatinine 2.18 H (0.66-1.25) mg/dL Glucose 134 H (74-99) mg/dL POC Glucose (mg/dL) 176 H (75-99) mg/dL Hemoglobin A1c (4.0-6.0) % Calcium 11.6 H (8.4-10.2) mg/dL Assessment and Plan Assessment: #1. Acute on chronic hypoxic respiratory failure related to possibility of pneumonia, chest x-ray showed patchy perihilar and basilar infiltrates, rule out possibility of aspiration, remains on daptomycin #2. Altered mental status likely related to metabolic encephalopathy #3. Elevated troponin, EKG without significant findings, recent echocardiogram showed preserved EF of 55-60%, no significant valvular disease, PA pressure of 26.3 mmHg. Cardiology consultations pending #4. Recent hospitalization for cervical spine epidural abscess of anterior cervical C7, and patient was discharged to [facility] on the vancomycin infusions for 6 weeks and which he continues #5. History of cervical myelopathy is status post surgical revision of C6 through T1 and corpectomy of C7 due to trauma, following a fall. Patient had open reduction and internal fixation carpectomy of C7 and fusion of C6 to T1 for recent C7 burst fracture on 10/11/2019 #6. Acute kidney injury, worsening related to diuretic therapy #7. Obstructive sleep apnea on BiPAP therapy at home #8. Chronic smoker, unknown whether the patient is still smoking #9. Suspect underlying history of COPD #10. Diabetes mellitus type 2 #11. Hypertension #12. History of pancreatitis #13. History of anxiety, depression #14. Poor overall functional performance based on the above-mentioned multiple comorbidities Plan: The patient was seen and evaluated by Dr. Sifuentes Continue the current treatment plan Titrate down the FiO2 as tolerated, utilize BiPAP as needed during the day and throughout the evenings. We'll continue to follow I, the cosigning physician, performed a history & physical examination of the patient. Lungs sounds with coarse crackles in the bilateral bases. Maintaining good O2 saturations in the 90s on 45% FiO2 via BiPAP. I discussed the assessment and plan of care with my nurse practitioner, Isela Prasad. I attest to the above note as dictated by her.
--- NOTE | 2019-12-17 14:16 | PN ---
PROGRESS NOTE Patient is seen for followup for acute kidney injury, hypercalcemia. This morning he was complaining of significant shortness of breath. Patient has been voiding. His chest x-ray from 2 days ago did show some evidence of pulmonary vascular congestion. He denies any significant complaints. He did receive pamidronate again yesterday. Calcium is somewhat improved down to 11.6 now. PHYSICAL EXAMINATION: On examination today, blood pressure was 126/72, heart rate of 120 per minute, he is afebrile. Examination of the heart S1, S2. Examination of the lungs, bilateral breath sounds are heard. Decreased breath sounds at bases. Abdomen is soft, nontender. Examination of the lower extremities shows no significant edema. HIDE AND SKIN COLERER exam shows patient has been confused on and off. He is oriented x3 currently. He is moving all 4 extremities. LABS: Show sodium 134, potassium 3.6, chloride 93, CO2 is 33, BUN 35, creatinine 2.18, calcium 11.6. ASSESSMENT: 1. Acute kidney injury associated with associated with hypercalcemia, currently somewhat improved. The patient is off IV fluids. I will give him a dose of IV Lasix x1. Repeat chest x-ray has been done. 2. Hypercalcemia with appropriately low PTH levels, normal twenty-five hydroxy and 125 hydroxy vitamin D level and Sameer levels, possibly related to recent spine surgery and immobilization, not on any calcium supplements, status post pamidronate. 3. Cervical spinal epidural abscess, status post cervical spine surgery and is currently maintained on antibiotics. 4. Some degree of vancomycin toxicity/nephrotoxicity, currently off vancomycin. 5. Volume overload status post IV Lasix today. Will follow up on the repeat chest x- ray. 6. Anemia with no active bleeding noted. Iron saturation was 20. Iron profile not done this admission. PLAN: Check iron profile with next lab draw. Repeat labs in a.m. Continue off IV fluids. MMODL / IJN: [id number] /
--- NOTE | 2019-12-17 15:26 | XR ---
EXAMINATION TYPE: XR chest 1V portable DATE OF EXAM: 12/17/2019 COMPARISON: 12/15/2019 INDICATION: Short of breath TECHNIQUE: Single frontal view of the chest is obtained. FINDINGS: The heart size is normal. The pulmonary vasculature is normal. There is diffuse bilateral infiltrates more focal in the left peripheral lower lung field. Small righ t pleural effusion may be present IMPRESSION: 1. Increasing bilateral lower lung field infiltrates. 2. Small increasing right pleural effusion
[2019-12-17 17:07] LABS: Glucose,Whole Blood 178 mg/dL (75-99)
--- NOTE | 2019-12-17 18:23 | P.PN ---
Progress Note - Text Progress Note Date: 12/17/19 Chief Complaint: Tired History of presenting complaint: This is a 54-year-old patient who follows with Dr. thomas from [place]. Chronic stable medical conditions include diabetes mellitus type II on insulin pump.,GERD, hypertension, obstructive sleep apnea uses CPAP, chronic pancreatitis, bipolar disorder and chronic low back pain. 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 underwent cervical spine surgery by Dr. Shanks-on October 10 2019. Patient is here in November-took a fall with displacement of the internal fixation and graft at C6 to T1. Patient underwent surgery in October 30. With removal of hardware and revision fixation At multiple levels. Local abscess was cleaned out. Cultures growing Staphylococcus epidermidis. Has a cervical collar since then. Patient is brought in from the EMS from the rehab. Patient is found to be bit confused. Had oxygen saturation 88% and a blood glucose down to 66. In the ER he reported feeling weak and tired. Not sure about his oral intake. No fever reported. Admitted with acute non-Q-wave IL, acute congestive heart failure exacerbation, possible pneumonia. Put on IV Lasix. Therapeutic Lovenox dose. Today-informative by the nurse to the patient's been barely eating. Quite often sleepy. When I talked the patient today still sleepy but able to recognize me and answer some questions. Review of systems: Was done for constitutional, cardiovascular, GI, pulmonary. relevant finding as above Active Medications Al Hydroxide/Mg Hydroxide (Mag Hydrox/Al Hydrox/Simeth 30 Ml Cup) 30 ml PO Q4H PRN PRN Reason: Constipation Albuterol/Ipratropium (Ipratropium-Albuterol 3 Ml Neb) 3 ml INHALATION RT-Q4H PRN PRN Reason: shortness of breath Last Admin: 12/17/19 15:56 Dose: 3 ml Documented by: Amlodipine Besylate (Amlodipine 5 Mg Tab) 5 mg PO DAILY@0900 [facility] Last Admin: 12/17/19 09:36 Dose: 5 mg Documented by: Cyclobenzaprine HCl (Cyclobenzaprine 5 Mg Tab) 5 mg PO TID@0600,1400,2200 ASHLEY Last Admin: 12/17/19 15:21 Dose: Not Given Documented by: Enoxaparin Sodium (Enoxaparin 100 Mg/Ml Syringe) 100 mg SQ Q12HR [facility] Last Admin: 12/17/19 09:36 Dose: 100 mg Documented by: Famotidine (Famotidine 20 Mg Tab) 20 mg PO DAILY [facility] Last Admin: 12/17/19 09:36 Dose: 20 mg Documented by: Fenofibrate (Fenofibrate 160 Mg Tab) 160 mg PO DAILY@0900 [facility] Last Admin: 12/17/19 09:36 Dose: 160 mg Documented by: Ferrous Sulfate (Ferrous Sulfate 325 Mg Tab) 325 mg PO BID@0800,2100 [facility] Last Admin: 12/17/19 09:36 Dose: 325 mg Documented by: Gabapentin (Gabapentin 100 Mg Cap) 100 mg PO HS [facility] Daptomycin 600 mg/ Sodium (Chloride) 50 mls @ 100 mls/hr IVPB Q24HR [facility]; Protocol Last Admin: 12/17/19 09:37 Dose: 100 mls/hr Documented by: Piperacillin Sod/Tazobactam (Sod 3.375 gm/ Sodium Chloride) 100 mls @ 25 mls/hr IVPB Q8HR [facility] Insulin Aspart (Insulin Aspart (Novolog) 100 Unit/Ml Vial) 0 unit SQ ACHS [facility]; Protocol Last Admin: 12/17/19 17:12 Dose: 3 unit Documented by: Lamotrigine (Lamotrigine 100 Mg Tab) 200 mg PO BID@0900,2100 [facility] Last Admin: 12/17/19 09:36 Dose: 200 mg Documented by: Lidocaine (Lidocaine 5% Patch) 1 patch TOPICAL DAILY [facility] Last Admin: 12/17/19 09:37 Dose: 1 patch Documented by: Magnesium Hydroxide (Magnesium Hydroxide 2,400 Mg/10 Ml Cup) 2,400 mg PO DAILY PRN PRN Reason: Constipation Last Admin: 12/11/19 21:39 Dose: 2,400 mg Documented by: Metoprolol Tartrate (Metoprolol Tartrate 25 Mg Tab) 25 mg PO BID@0900,2100 [facility] Last Admin: 12/17/19 09:36 Dose: 25 mg Documented by: Miscellaneous Information (Pneumonia Protocol Utilized 1 Each Misc) 1 each PO ONCE PRN PRN Reason: Per Protocol Miscellaneous Information (Potassium Replacement Protocol 1 Each Misc) 1 each MISCELLANE DAILY PRN; Protocol PRN Reason: Per Protocol Ondansetron HCl (Ondansetron 4 Mg Tab) 4 mg PO Q8HR PRN PRN Reason: Nausea And Vomiting Last Admin: 12/11/19 20:14 Dose: 4 mg Documented by: Oxycodone HCl (Oxycodone Er 20 Mg Tab.Er.12h) 20 mg PO Q12H [facility] Last Admin: 12/17/19 11:47 Dose: Not Given Documented by: Quetiapine Fumarate (Quetiapine 100 Mg Tab) 100 mg PO HS [facility] Last Admin: 12/16/19 23:54 Dose: 100 mg Documented by: Senna/Docusate Sodium (Sennosides-Docusate Sodium 1 Each Tab) 4 each PO DAILY@0900 [facility] Last Admin: 12/17/19 09:37 Dose: 4 each Documented by: Tamsulosin HCl (Tamsulosin 0.4 Mg Cap.Er.24h) 0.4 mg PO HS@2100 [facility] Last Admin: 12/16/19 20:29 Dose: 0.4 mg Documented by: Trazodone HCl (Trazodone Hcl 100 Mg Tab) 100 mg PO HS@2100 [facility] Last Admin: 12/17/19 01:25 Dose: 100 mg Documented by: . Physical examination: VITAL SIGNS: 98.3, 110, 16, 142.70, 87% on BiPAP GENERAL: Laying in bed, lethargic but arousable EYES: Pupils equal. Conjunctiva normal. NECK: .Cervical collar HEART: First and second heart sounds are normal; no edema. LUNGS: Respiratory rate normal, diminished breath sounds ABDOMEN: Soft, no tenderness,, no guarding rigidity, liver spleen not palpable, no masses palpable. PSYCH: Sleepy but we'll answer occasional question NEUROLOGICAL: Cranial nerves grossly intact, moving all 4 limbs INVESTIGATIONS, reviewed in the clinical context: White count 10.6 hemoglobin 8.3 platelets 255 potassium 3.6 bun 35 creatinine 2.18 Previous testing: White count 14.7 hemoglobin 8.5 platelets 328 potassium 4.2 bun 26 creatinine 1.56 Accu-Cheks 102, 78, 66 Troponin I 1.6, 2.7, 1.7 proBNP 1200 EKG tracing personally reviewed by me-normal sinus rhythm Chest x-ray film personally reviewed by me-pulmonary edema, can rule out infiltrate 2-D echocardiogram-EF 60-65% Previous testing: Creatinine 1.0 Assessment: -Acute non-Q wave myocardial infarction-to be managed conservatively -Possible pneumonia, suspect gram-negative organism -Acute congestive heart failure from diastolic dysfunction EF 60 have a 65%- improved - October 10-C6 C7 T1 removal of bone fragments from fracture of C7, decompression fusion and plating-4 C7 fracture, cervical spine stenosis , myelopathy disc herniation: Now presented with trauma with Computed tomography scan of the spine showing dislocation of anterior cervical fusionand C7 increased kyphosis at C6-C7; fracture of the left C6 lamina-status post replacement and repair. -History of C7 epidural abscess that was cleaned. Cultures positive for Staphylococcus epidermidis. From previous admission -Diabetes mellitus type 2, uncontrolled with , hypoglycemia better -Acute metabolic encephalopathy could be from medications in the setting of acute kidney injury especially with decreased oral intake -GERD -Essential hypertension -Obstructive sleep apnea uses a BiPAP machine -Bipolar disorder -Chronic low back pain -Obesity BMI 30.6 -COPD in a current smoker -chronic pancreatitis. -Acute kidney injury could be from vancomycin, also prerenal from decreased oral intake-worsening Plan: We will temporally cutback Neurontin 200 mg daily at bedtime. Cutback OxyContin to 15 mg extended release every 12. Feeding with assistance. Gentle hydration.
[2019-12-17] MEDS: PIPERACILLIN-TAZOBACTAM 3.375 GM in SODIUM CHLORIDE 0.9% 100 ML IVPB SCH (18:37)
[2019-12-17] MEDS: DEXTROSE 5%-0.9% NACL 1,000 ML IV SCH (18:37)
--- NOTE | 2019-12-17 19:55 | PN ---
PROGRESS NOTE DATE OF SERVICE: 12/17/2019 REASON FOR FOLLOWUP: Right C7 paraspinal abscess. INTERVAL HISTORY: The patient is currently afebrile. The patient seemed to have some worsening of his respiratory status and has been on BiPAP. The patient was lethargic and did not provide any history. No vomiting or any diarrhea has been reported. PHYSICAL EXAMINATION: Blood pressure 160/76, pulse of 112, temperature 98.3. He is 94% on high-flow oxygen. General description is a middle-aged male lying in bed in no distress. RESPIRATORY SYSTEM: Unlabored breathing with decreased intensity of breath sounds. No wheeze. HEART: S1, S2. Regular rate and rhythm. ABDOMEN: Soft. No tenderness. LABS: Hemoglobin 8.9, white count 10.6, BUN of 35, creatinine is 2.18. DIAGNOSTIC IMPRESSION AND PLAN: 1. Patient with a T7 paraspinal abscess, status post drainage. Culture with Staph epidermidis. Subsequently admitted to hospital with acute kidney injury. Currently covered with daptomycin; to continue. 2. Patient with possible pneumonia and is covered with Zosyn. Try to obtain a sputum sample to narrow down his antibiotics. Continue with supportive care. MMODL / IJN: [id number] /
[2019-12-17 21:13] LABS: Glucose,Whole Blood 183 mg/dL (75-99)
[2019-12-17] MEDS: TAMSULOSIN 0.4 MG CAP.ER.24H PO SCH (21:18)
[2019-12-17] MEDS: QUEtiapine 100 MG TAB PO SCH (21:18)
[2019-12-17] MEDS: oxyCODONE ER 15 MG TAB.ER.12H PO SCH (21:18)
[2019-12-17] MEDS: GABAPENTIN 100 MG CAP PO SCH (21:18)
[2019-12-17 21:56] LABS: % Iron Saturation 7.34 (15.00-50.00)
[2019-12-18] MEDS: PIPERACILLIN-TAZOBACTAM 3.375 GM in SODIUM CHLORIDE 0.9% 100 ML IVPB SCH ×3 (00:40→15:54)
[2019-12-18 06:32] LABS: Glucose,Whole Blood 156 mg/dL (75-99)
[2019-12-18] MEDS: CYCLOBENZAPRINE 5 MG TAB PO SCH ×3 (06:35→21:23)
[2019-12-18] MEDS: INSULIN ASPART (NovoLOG) 100 UNIT/ML VIAL SQ SCH ×4 (06:35→21:24)
[2019-12-18] MEDS: IPRATROPIUM-ALBUTEROL 3 ML NEB INHALATION PRN ×4 (07:46→20:42)
[2019-12-18 07:55] LABS: Calcium 11.7 mg/dL (8.4-10.2); Potassium 3.8 mmol/L (3.5-5.1)
[2019-12-18 09:13] LABS: C Reactive Protein 252.7 mg/L (<10.0)
[2019-12-18] MEDS: oxyCODONE ER 15 MG TAB.ER.12H PO SCH ×2 (09:43→21:23)
[2019-12-18] MEDS: amLODIPine 5 MG TAB PO SCH (09:47)
[2019-12-18] MEDS: FENOFIBRATE 160 MG TAB PO SCH (09:47)
[2019-12-18] MEDS: FAMOTIDINE 20 MG TAB PO SCH (09:47)
[2019-12-18] MEDS: lamoTRIgine 100 MG TAB PO SCH ×2 (09:47→21:23)
[2019-12-18] MEDS: METOPROLOL TARTRATE 25 MG TAB PO SCH ×2 (09:47→21:23)
[2019-12-18] MEDS: SENNOSIDES-DOCUSATE SODIUM 1 EACH TAB PO SCH (09:48)
[2019-12-18] MEDS: FERROUS SULFATE 325 MG TAB PO SCH ×2 (09:48→21:25)
[2019-12-18] MEDS: ENOXAPARIN 100 MG/ML SYRINGE SQ SCH ×2 (09:48→21:24)
[2019-12-18] MEDS: LIDOCAINE 5% PATCH TOPICAL SCH (10:47)
[2019-12-18] MEDS ORDERED: FUROSEMIDE 10 MG/ML 4 ML VIAL IV STA (10:49)
[2019-12-18] MEDS: DEXTROSE 5%-0.9% NACL 1,000 ML IV SCH (10:54)
[2019-12-18] MEDS: FUROSEMIDE 40 MG TAB PO SCH (11:09)
[2019-12-18 11:50] LABS: Glucose,Whole Blood 177 mg/dL (75-99)
--- NOTE | 2019-12-18 12:04 | PN ---
PROGRESS NOTE Patient is seen for followup for acute kidney injury and hypercalcemia. He has received pamidronate. Serum calcium has improved, now staying at about 11.7 mg/dL. Yesterday, patient received a dose of IV Lasix as he was more short of breath with suggestion of mild volume overload. He currently remains on high-flow oxygen at 10 L. His heart rate is about 111-125 beats per minute. He is afebrile. He has been confused on and off. PHYSICAL EXAMINATION: On examination today, blood pressure 147/101, heart rate 125 per minute, he is afebrile. Examination of the heart S1, S2. Examination of the lungs, bilateral breath sounds are heard. Decreased breath sounds at the bases. Abdomen is soft, nontender. Examination of the lower extremities shows no evidence of edema. ADMINISTRATIVE MEDICAL DIRECTOR exam grossly intact. Patient moving all 4 extremities. LABS: Show sodium 135, potassium 3.8, chloride 92. CO2 is 32, BUN 35, creatinine 2.18. ASSESSMENT: 1. Acute kidney injury associated with hypercalcemia and underlying ATN with no evidence of urine retention and unremarkable ultrasound of the kidneys. The UA is completely benign as of 12/09/2019. Patient was on vancomycin prior to admission. Therefore there may have been a component of vancomycin toxicity. He is currently off vancomycin and maintained on daptomycin. Serum creatinine staying at about 2 mg/dL. 2. Mild volume overload, currently improved, status post IV Lasix yesterday. I will maintain the patient on p.o. Lasix. 3. Hypercalcemia with appropriately low PTH levels and normal Sameer level and serum and urine immunofixation and 25 hydroxy vitamin D and 125 hydroxy vitamin D levels, status post pamidronate. IV fluids were on initially, currently discontinued secondary to hypervolemia. Patient did have immobilization associated with his recent cervical surgery and he has not been on any calcium supplements. 4. Cervical epidural abscess, status post surgery for cervical fracture, status post surgery again. Currently maintained on antibiotics. PLAN: Maintain patient on oral Lasix for now and repeat labs in a.m. MMODL / IJN: [id number] /
--- NOTE | 2019-12-18 12:55 | CDI ---
Documentation Clarification Form Date: 12/18/2019 12:30:14 PM From: Huong Plascencia CCS, CCDS Admit Date: 12/09/2019 02:14:00 PM Patient Name: Sergio Martini Visit Number: [id number] Discharge Date: ATTENTION: The Clinical Documentation Specialists (CDI) and [facility] Coding Staff appreciate your assistance in clarifying documentation. Please respond to the clarification below the line at the bottom and electronically sign. The CDI & [facility] Coding staff will review the response and follow-up if needed. Please note: Queries are made part of the Legal Health Record. If you have any questions, please contact the author of this message via ITS. Dr. Guy Mendoza: Anemia without further specificity is documented in the 12/10 Cardiology Progress Note & the 12/16 Nephrology Progress Note. 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 Clinical indicators: Patient presented to the ED with Low O2 Sats (88), altered mental status & Blood Sugar 66, unclear if patient has been eating or drinking well. Has a PICC line for antibiotics (Vancomycin) for a spinal neck abscess. Admitted with Sepsis & Pneumonia. Attending physician notified on 12/16 that patient was barely eating. Hgb: 12/08 8.5* - 12/12 10.2* - 12/16: 8.3* Hct: 12/08 26.1* - 12/12 32.6* - 12/16 26.8* 12/16 Iron: 218*. TIBC 218*, % Saturation 7.34*. BMI: 27.5. Total Protein 5.6*, Albumin 2.9* Home Rx: Lopressor, Singulair, Lamotrigine, Norvasc, INH Albuterol, Cymbalta, Voltaren, Bentyl, Insulin sq, Desyrel, Neurontin, Percocet, Pravachol, Flexeril, Famotidine, Seroquel, Flomax, Cymbalta, Vancomycin, Tramadol. Treatment 12/08: Telemetry, Blood glucose monitoring, Insulin sliding Scale, IV fluid 1,000 mls @ 130 mls/hr, INH Albuterol, IV Azithromycin, IV Zosyn, IV fluid 1,000 mls @ 999 mls/hr, IV Dextrose. In order to capture the severity of condition, please clarify the type of anemia and etiology if known: Chronic blood loss anemia Iron deficiency anemia Drug induced anemia Nutritional anemia Anemia of chronic disease Unable to determine Other, please specify (Last Form Revision: May 2019) Anemia of chronic disease MTDD
--- NOTE | 2019-12-18 13:06 | P.PN ---
Subjective Progress Note Date: 12/18/19 Principal diagnosis: Hypoxemia, shortness of breath, altered mentation 54-year-old white male patient of Dr. Wood with past medical history of hypertension, diabetes mellitus, obstructive sleep apnea on BiPAP, chronic back pain, chronic smoker, history of anxiety, depression, who was recently hospitalized from 10/30/2019 through 11/11/2019 when he came in for evaluation o f severe shoulder pain after she sustained a fall at home a few weeks following his cervical spine surgery on 10/11/2019 for traumatic T7 burst fracture. Computed tomography scan of the cervical spine revealed traumatic displacement of anterior cervical internal fixation from C6 to T1, and on 10/31/2019 patient underwent anterior cervical decompression and fusion of C6 through T1 extending up to C5 with revision corpectomy C7 with short cage extending from C6 through T1 and posterior cervical fusion of C5 through T2. Patient had an episode of chest pain during the last admission, was evaluated by cardiology, EKG and echocardiogram without significant findings, d-dimer was elevated, CTA chest was without evidence of pulmonary embolism. Patient was discharged to [facility]. Of note during his surgery. Patient was found to have a cervical epidural abscess positive for Staphylococcus epidermidis and he was discharged with a PICC line in place for vancomycin infusions for 6 weeks. On 12/09/2019 patient was brought into the emergency department for evaluation of altered mental status, and hypoxemia with O2 saturations of 88%, blood sugar was 66 patient was given half amp of glucose with improvement of his symptoms. His oral membranes are extremely dry, patient is unclear whether he has been eating or drinking well. He seems somewhat confused, he is currently on 5 L of oxygen, he has removed his oxygen, and he is desaturating into the low 80s, seems leth argic. Denies any fevers, denies any dyspnea. Chest x-ray showed patchy perihilar and basilar infiltrates with a concern for pneumonia. Brain CT showed no acute abnormality. EKG showed normal sinus rhythm. Labs showed a white blood cell count of 14.7, hemoglobin of 8.5, INR is 1.2, sodium is 134, potassium is 4.2, chloride is 97, CO2 31, BUN is 26, creatinine is 1.56, lactic acid 0.8, troponin is 1.650, proBNP is 1200, urinalysis without sign of infection. Current antibiotic coverage is in the form of azithromycin, Zosyn, and we resumed his vancomycin for recent cervical spine abscess. COVID 19 PCR was sent, pending at this time. Patient is afebrile, he is lethargic, but breathing is nonlabored, he is a poor historian, he is confused. On 12/10/2019 patient seen in follow-up on selective care unit, he is much more awake today, overnight she was the BiPAP with settings of 12/5 and FiO2 of 45%, he is currently on 4 L of oxygen, he sitting up on the edge of the bed, in some questions appropriately, denies any acute distress, his been afebrile overnight. He was started on IV Lasix, continues on antibiotics including vancomycin and Zosyn, no hemoptysis, no completed chest pain, echocardiogram is pending, patient was started on therapeutic doses of Lovenox, lung sounds are diminished, with crackles in the mid to bilateral lower lobes. His troponin is 2.73. Cardiology consultation is pending, coronavirus was negative On 12/11/2019 patient seen in follow-up on selective care unit, he is awake and alert, resting comfortably in bed, he is currently on 6 L of oxygen pulse ox 96%, vital signs stable, afebrile, breathing is nonlabored, no wheezing, no rhonchi, no significant cough or congestion. Much more awake on today's exam, his been wearing his BiPAP at night. Today's chest x-ray shows stable alveolar and interstitial edema, despite the diuretics. Afebrile, ID service is following, her cultures have shown no growth, current antibiotic coverage is in the form of daptomycin and Zosyn. His swallowing evaluation was within normal limits. The patient is seen today 12/12/2019 in follow-up on the selective care unit. He is currently sitting up at the bedside. Awake and alert in no acute distress. Breathing a bit easier today compared to yesterday. Maintaining O2 saturations in the 90s on 4 L high flow nasal cannula. He's been afebrile. Blood culture reveals no growth to date. Sodium 135. Potassium 3.2. Creatinine 2.36. He is continued on Zosyn and daptomycin. Remains on bronchodilators. The patient is seen today 12/13/2019 in follow-up on the selective care unit. He is currently resting comfortably in bed. Awake and alert in no acute d istress. He denies any worsening shortness of breath, cough or congestion. He is maintaining good O2 saturation in the 90s on 4 L per nasal cannula. He does desaturate into the 70s on room air. He's afebrile. Blood culture reveals no growth. White count 12.6. Hemoglobin 10.2. Sodium 1:30. Potassium 4.0. Creatinine 2.81. He remains on DuoNeb inhalations, daptomycin, Zosyn. Chest x- ray reveals persistent prominence of pulmonary interstitium. Right infrahilar infiltrate persists although is improving. Small effusions. Patient is seen today 12/16/2019 in follow-up on the selective care unit. He is currently resting comfortably in bed. Awake and alert in no acute distress. He denies any worsening shortness of breath, cough or congestion. He appears alert and oriented at times and other times he appears confused. Maintaining O2 saturations in the 90s on 6 L high flow nasal cannula, alternating with BiPAP at 45% FiO2. He is afebrile. Blood cultures reveal no growth. White count 13.5. Hemoglobin 10.2. Sedimentation 4. Potassium 3.9. Creatinine 2.23. Remains on bronchodilators. Currently on daptomycin. Lovenox for DVT prophylaxis. The patient is seen today 12/17/2019 in follow-up on the selective care unit. He is currently resting in bed. He is on the BiPAP. Currently 12/5 and 45% FiO2. Apparently the patient had pulled his BiPAP off earlier and was found on the floor. At that time his O2 saturation was in the 70s. Recovered and back at 97%. Arterial blood gases reveal a pO2 of 70, pCO2 44, pH 7.46. Blood cultures reveal no growth. White count 10.6. Hemoglobin 8.3. Sodium 134. Potassium 3.6. Bicarb 33. Creatinine 2.18. He remains on DuoNeb inhalations, antibiotics in the form of daptomycin. He is on Lovenox. Received Lasix IVP 1 today. The patient is seen today 12/18/2019 in follow-up on the selective care unit. He is currently sitting up in a chair at the bedside. Awake and alert in no acute distress. Currently off the BiPAP. Maintaining O2 saturations in the 90s on 10 L high flow nasal cannula. He is afebrile. Still tachycardic. Hypertensive. Blood culture reveals no growth. Sodium 135. Potassium 3.8. Creatinine 2.18. C-reactive protein 252. Pro-calcitonin 0.75. Remains on Zosyn and daptomycin. Lovenox for DVT prophylaxis. Received Lasix 40 mg IVP 1 today. Objective - Vital Signs Vital signs: Vital Signs Temp 98.0 F 12/18/19 08:00 Pulse 118 H 12/18/19 11:16 Resp 20 12/18/19 08:00 BP 147/101 12/18/19 08:00 Pulse Ox 94 L 12/18/19 08:00 Intake & Output 12/17/19 12/18/19 12/18/19 18:59 06:59 18:59 Intake Total 190 540 0 Output Total 1100 425 Balance -910 540 -425 Weight 99 kg 97 kg 97 kg Intake: IV 50 DAPTOmycin 600 mg In 50 Sodium Chloride 0.9% 50 ml @ 100 mls/hr IVPB Q24HR [facility] Rx#:[id number] Oral 140 540 0 Output: Urine 1100 425 Stool 0 Other: Voiding Method Urinal # Voids 0 # Bowel Movements 0 - Exam GENERAL EXAM: Alert, 54-year-old male, appears older than stated age, in the chair at the bedside, on 10 L high flow nasal cannula, with O2 saturation 94%, comfortable in no apparent distress. HEAD: Normocephalic/atraumatic. EYES: Normal reaction of pupils, equal size. Conjunctiva pink, sclera white. NOSE: Clear with pink turbinates. THROAT: No erythema or exudates. NECK: No masses, no JVD, no thyroid enlargement, no adenopathy. Posterior neck incision is clean dry and intact. Patient has a neck collar in place CHEST: No chest wall deformity. Symmetrical expansion. LUNGS: Equal air entry with coarse crackles at bilateral lower and mid lungs CVS: Regular rate and rhythm, normal S1 and S2, no gallops, no murmurs, no rubs ABDOMEN: Soft, nontender. No hepatosplenomegaly, normal bowel sounds, no guarding or rigidity. EXTREMITIES: No clubbing, no edema, no cyanosis, 2+ pulses and upper and lower extremities. MUSCULOSKELETAL: Muscle strength and tone normal. SPINE: No scoliosis or deformity SKIN: No rashes CENTRAL NERVOUS SYSTEM: No focal deficits, tone is normal in all 4 extremities. PSYCHIATRIC: Alert and oriented -3. Appropriate affect. Intact judgment and insight - Labs CBC & Chem 7: 12/17/19 07:52 12/18/19 07:01 Labs: Abnormal Lab Results - Last 24 Hours (Table) 12/17/19 12/17/19 12/17/19 Range/Units 07:52 17:03 21:02 Sodium (137-145) mmol/L Chloride (98-107) mmol/L Carbon Dioxide (22-30) mmol/L BUN (9-20) mg/dL Creatinine (0.66-1.25) mg/dL Glucose (74-99) mg/dL POC Glucose (mg/dL) 178 H 183 H (75-99) mg/dL Calcium (8.4-10.2) mg/dL Iron 16 L (65-175) ug/dL TIBC 218 L (228-460) ug/dL % Saturation 7.34 L (15.00-50.00) C-Reactive Protein (<10.0) mg/L Procalcitonin (0.02-0.09) ng/mL 12/18/19 12/18/19 12/18/19 Range/Units 06:30 07:01 07:01 Sodium 135 L (137-145) mmol/L Chloride 92 L (98-107) mmol/L Carbon Dioxide 32 H (22-30) mmol/L BUN 35 H (9-20) mg/dL Creatinine 2.18 H (0.66-1.25) mg/dL Glucose 154 H (74-99) mg/dL POC Glucose (mg/dL) 156 H (75-99) mg/dL Calcium 11.7 H (8.4-10.2) mg/dL Iron (65-175) ug/dL TIBC (228-460) ug/dL % Saturation (15.00-50.00) C-Reactive Protein 252.7 H (<10.0) mg/L Procalcitonin 0.75 H (0.02-0.09) ng/mL 12/18/19 Range/Units 11:49 Sodium (137-145) mmol/L Chloride (98-107) mmol/L Carbon Dioxide (22-30) mmol/L BUN (9-20) mg/dL Creatinine (0.66-1.25) mg/dL Glucose (74-99) mg/dL POC Glucose (mg/dL) 177 H (75-99) mg/dL Calcium (8.4-10.2) mg/dL Iron (65-175) ug/dL TIBC (228-460) ug/dL % Saturation (15.00-50.00) C-Reactive Protein (<10.0) mg/L Procalcitonin (0.02-0.09) ng/mL Assessment and Plan Assessment: #1. Acute on chronic hypoxic respiratory failure related to possibility of pneumonia, chest x-ray showed patchy perihilar and basilar infiltrates, rule out possibility of aspiration, remains on daptomycin and Zosyn #2. Altered mental status likely related to metabolic encephalopathy #3. Elevated troponin, EKG without significant findings, recent echocardiogram showed preserved EF of 55-60%, no significant valvular disease, PA pressure of 26.3 mmHg. Cardiology consultations pending #4. Recent hospitalization for cervical spine epidural abscess of anterior cervical C7, and patient was discharged to [facility] on the vancomycin infusions for 6 weeks and which he continues #5. History of cervical myelopathy is status post surgical revision of C6 through T1 and corpectomy of C7 due to trauma, following a fall. Patient had open reduction and internal fixation carpectomy of C7 and fusion of C6 to T1 for recent C7 burst fracture on 10/11/2019 #6. Acute kidney injury, worsening related to diuretic therapy #7. Obstructive sleep apnea on BiPAP therapy at home #8. Chronic smoker, unknown whether the patient is still smoking #9. Suspect underlying history of COPD #10. Diabetes mellitus type 2 #11. Hypertension #12. History of pancreatitis #13. History of anxiety, depression #14. Poor overall functional performance based on the above-mentioned multiple comorbidities Plan: The patient was seen and evaluated by Dr. Sifuentes Continue the current treatment plan Additional IV Lasix today Titrate down the FiO2 as tolerated, utilize BiPAP as needed during the day and throughout the evenings Increase his activity as tolerated We'll continue to follow I, the cosigning physician, performed a history & physical examination of the patient. Lungs sounds with coarse crackles in the bilateral bases. Maintaining good O2 saturations in the 90s on 10 L high flow nasal cannula. I discussed the assessment and plan of care with my nurse practitioner, Isela Prasad. I attest to the above note as dictated by her.
[2019-12-18 16:39] LABS: Glucose,Whole Blood 193 mg/dL (75-99)
[2019-12-18 20:19] LABS: Glucose,Whole Blood 297 mg/dL (75-99)
[2019-12-18] MEDS: QUEtiapine 100 MG TAB PO SCH (21:22)
[2019-12-18] MEDS: traZODone HCL 100 MG TAB PO SCH (21:23)
[2019-12-18] MEDS: GABAPENTIN 100 MG CAP PO SCH (21:23)
[2019-12-18] MEDS: TAMSULOSIN 0.4 MG CAP.ER.24H PO SCH (21:23)
--- NOTE | 2019-12-18 22:53 | P.PN ---
Progress Note - Text Progress Note Date: 12/18/19 Chief Complaint: Tired History of presenting complaint: This is a 54-year-old patient who follows with Dr. thomas from [place]. Chronic stable medical conditions include diabetes mellitus type II on insulin pump.,GERD, hypertension, obstructive sleep apnea uses CPAP, chronic pancreatitis, bipolar disorder and chronic low back pain. 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 underwent cervical spine surgery by Dr. Shanks-on October 10 2019. Patient is here in November-took a fall with displacement of the internal fixation and graft at C6 to T1. Patient underwent surgery in October 30. With removal of hardware and revision fixation At multiple levels. Local abscess was cleaned out. Cultures growing Staphylococcus epidermidis. Has a cervical collar since then. Patient is brought in from the EMS from the rehab. Patient is found to be bit confused. Had oxygen saturation 88% and a blood glucose down to 66. In the ER he reported feeling weak and tired. Not sure about his oral intake. No fever reported. Admitted with acute non-Q-wave TX, acute congestive heart failure exacerbation, possible pneumonia. Put on IV Lasix. Therapeutic Lovenox dose. Patient remained rather lethargic tired sleepy. Creatinine was going up. I did cut back on the dose of patient's long-acting morphine. Also dose of Neurontin cutback. Today-patient doing really well today compared to yesterday. Sitting up in a chair. Tired but able to have a conversation with me. Does not like the hospital food. Review of systems: Was done for constitutional, cardiovascular, GI, pulmonary. relevant finding as above Active Medications Al Hydroxide/Mg Hydroxide (Mag Hydrox/Al Hydrox/Simeth 30 Ml Cup) 30 ml PO Q4H PRN PRN Reason: Constipation Albuterol/Ipratropium (Ipratropium-Albuterol 3 Ml Neb) 3 ml INHALATION RT-Q4H PRN PRN Reason: shortness of breath Last Admin: 12/18/19 20:42 Dose: 3 ml Documented by: Amlodipine Besylate (Amlodipine 5 Mg Tab) 5 mg PO DAILY@0900 ASHLEY Last Admin: 12/18/19 09:47 Dose: 5 mg Documented by: Cyclobenzaprine HCl (Cyclobenzaprine 5 Mg Tab) 5 mg PO TID@0600,1400,2200 [facility] Last Admin: 12/18/19 21:23 Dose: 5 mg Documented by: Enoxaparin Sodium (Enoxaparin 100 Mg/Ml Syringe) 100 mg SQ Q12HR [facility] Last Admin: 12/18/19 21:24 Dose: 100 mg Documented by: Famotidine (Famotidine 20 Mg Tab) 20 mg PO DAILY [facility] Last Admin: 12/18/19 09:47 Dose: 20 mg Documented by: Fenofibrate (Fenofibrate 160 Mg Tab) 160 mg PO DAILY@0900 [facility] Last Admin: 12/18/19 09:47 Dose: 160 mg Documented by: Ferrous Sulfate (Ferrous Sulfate 325 Mg Tab) 325 mg PO BID@0800,2100 [facility] Last Admin: 12/18/19 21:25 Dose: 325 mg Documented by: Furosemide (Furosemide 40 Mg Tab) 40 mg PO DAILY [facility] Last Admin: 12/18/19 11:09 Dose: 40 mg Documented by: Gabapentin (Gabapentin 100 Mg Cap) 100 mg PO HS [facility] Last Admin: 12/18/19 21:23 Dose: 100 mg Documented by: Daptomycin 600 mg/ Sodium (Chloride) 50 mls @ 100 mls/hr IVPB Q24HR [facility]; Protocol Last Admin: 12/18/19 09:46 Dose: 100 mls/hr Documented by: Piperacillin Sod/Tazobactam (Sod 3.375 gm/ Sodium Chloride) 100 mls @ 25 mls/hr IVPB Q8HR [facility] Last Admin: 12/18/19 15:54 Dose: 25 mls/hr Documented by: Dextrose/Sodium Chloride (Dextrose 5%-Ns Iv Soln) 1,000 mls @ 20 mls/hr IV .Q24H [facility] Last Admin: 12/18/19 10:54 Dose: Not Given Documented by: Insulin Aspart (Insulin Aspart (Novolog) 100 Unit/Ml Vial) 0 unit SQ ACHS [facility]; Protocol Last Admin: 12/18/19 21:24 Dose: 7 unit Documented by: Lamotrigine (Lamotrigine 100 Mg Tab) 200 mg PO BID@0900,2100 [facility] Last Admin: 12/18/19 21:23 Dose: 200 mg Documented by: Lidocaine (Lidocaine 5% Patch) 1 patch TOPICAL DAILY [facility] Last Admin: 12/18/19 10:47 Dose: 1 patch Documented by: Magnesium Hydroxide (Magnesium Hydroxide 2,400 Mg/10 Ml Cup) 2,400 mg PO DAILY PRN PRN Reason: Constipation Last Admin: 12/11/19 21:39 Dose: 2,400 mg Documented by: Metoprolol Tartrate (Metoprolol Tartrate 25 Mg Tab) 25 mg PO BID@0900,2100 [facility] Last Admin: 12/18/19 21:23 Dose: 25 mg Documented by: Miscellaneous Information (Pneumonia Protocol Utilized 1 Each Mis) 1 each PO ONCE PRN PRN Reason: Per Protocol Miscellaneous Information (Potassium Replacement Protocol 1 Each [facility]) 1 each MISCELLANE DAILY PRN; Protocol PRN Reason: Per Protocol Ondansetron HCl (Ondansetron 4 Mg Tab) 4 mg PO Q8HR PRN PRN Reason: Nausea And Vomiting Last Admin: 12/11/19 20:14 Dose: 4 mg Documented by: Oxycodone HCl (Oxycodone Er 15 Mg Tab.Er.12h) 15 mg PO Q12HR [facility] Last Admin: 12/18/19 21:23 Dose: 15 mg Documented by: Quetiapine Fumarate (Quetiapine 100 Mg Tab) 100 mg PO HS [facility] Last Admin: 12/18/19 21:22 Dose: 100 mg Documented by: Senna/Docusate Sodium (Sennosides-Docusate Sodium 1 Each Tab) 4 each PO DAILY@0900 [facility] Last Admin: 12/18/19 09:48 Dose: 4 each Documented by: Tamsulosin HCl (Tamsulosin 0.4 Mg Cap.Er.24h) 0.4 mg PO HS@2100 [facility] Last Admin: 12/18/19 21:23 Dose: 0.4 mg Documented by: Trazodone HCl (Trazodone Hcl 100 Mg Tab) 100 mg PO HS@2100 [facility] Last Admin: 12/18/19 21:23 Dose: 100 mg Documented by: . Physical examination: VITAL SIGNS: 98, 120, 20, 147/101, 94% on BiPAP GENERAL: Sitting up in a chair, more awake. Able to talk EYES: Pupils equal. Conjunctiva normal. NECK: .Cervical collar HEART: First and second heart sounds are normal; no edema. LUNGS: Respiratory rate normal, diminished breath sounds ABDOMEN: Soft, no tenderness,, no guarding rigidity, liver spleen not palpable, no masses palpable. PSYCH: Able to answer questions NEUROLOGICAL: Cranial nerves grossly intact, moving all 4 limbs INVESTIGATIONS, reviewed in the clinical context: Potassium 3.8 creatinine 2.18 Previous testing: White count 14.7 hemoglobin 8.5 platelets 328 potassium 4.2 bun 26 creatinine 1.56 Accu-Cheks 102, 78, 66 Troponin I 1.6, 2.7, 1.7 proBNP 1200 EKG tracing personally reviewed by me-normal sinus rhythm Chest x-ray film personally reviewed by me-pulmonary edema, can rule out inf iltrate 2-D echocardiogram-EF 60-65% Previous testing: Creatinine 1.0 Assessment: -Acute non-Q wave myocardial infarction-to be managed conservatively -Possible pneumonia, suspect gram-negative organism -Acute congestive heart failure from diastolic dysfunction EF 60 have a 65%- improved - October 10-C6 C7 T1 removal of bone fragments from fracture of C7, decompression fusion and plating-4 C7 fracture, cervical spine stenosis , myelopathy disc herniation: Now presented with trauma with Computed tomography scan of the spine showing dislocation of anterior cervical fusionand C7 increased kyphosis at C6-C7; fracture of the left C6 lamina-status post replacement and repair. -History of C7 epidural abscess that was cleaned. Cultures positive for Staphylococcus epidermidis. From previous admission -Diabetes mellitus type 2, uncontrolled with , hypoglycemia better -Acute metabolic encephalopathy could be from medications in the setting of acute kidney injury especially with decreased oral intake-improved from cutting back on the dose of long-acting morphine. -GERD -Essential hypertension -Obstructive sleep apnea uses a BiPAP machine -Bipolar disorder -Chronic low back pain -Obesity BMI 30.6 -COPD in a current smoker -chronic pancreatitis. -Acute kidney injury could be from vancomycin, also prerenal from decreased oral intake- Plan: Continue current medication to the plan. Spoke to the nurse to speak to the dietitian to get food from the kitchen that patient actually likes. Including fruits and smoothie. Clinically responding well. Repeat labs.
--- NOTE | 2019-12-18 22:58 | PN ---
PROGRESS NOTE DATE OF SERVICE: 12/18/2019 REASON FOR FOLLOWUP: 1. C7 paraspinal abscess. 2. Possible pneumonia. INTERVAL HISTORY: The patient is currently afebrile. The patient is breathing slightly comfortably. Denies having any chest pain or shortness of breath, but he did have a cough, not bringing up any sputum, and no abdominal pain or any diarrhea. PHYSICAL EXAMINATION: Blood pressure 142/95 with a pulse of 117, temperature 97.6. He is 90% on high-flow oxygen. General description is a middle-aged male lying in bed in no distress. RESPIRATORY SYSTEM: Unlabored breathing with decreased breath sounds at the base. No wheeze. HEART: S1, S2. Regular rate and rhythm. ABDOMEN: Soft. No tenderness. LABS: Creatinine is 2.18, hemoglobin 8.3, white count 10.6. DIAGNOSTIC IMPRESSION AND PLAN: 1. Patient with a C7 paraspinal abscess, status post drainage. The patient was initially treated with vancomycin. That has been transitioned to daptomycin because of the renal insufficiency. He will be continued for another few weeks in view of persistent elevated CRP and sedimentation rate. 2. Patient with pneumonia, possibly Gram-negative/aspiration, covered with Zosyn. Will try to obtain a sputum sample to narrow down his antibiotics and continue with supportive care. MMODL / IJN: [id number] /
[2019-12-19] MEDS: PIPERACILLIN-TAZOBACTAM 3.375 GM in SODIUM CHLORIDE 0.9% 100 ML IVPB SCH ×3 (00:49→16:04)
[2019-12-19] MEDS: DEXTROSE 5%-0.9% NACL 1,000 ML IV SCH ×2 (00:49→22:13)
[2019-12-19 06:10] LABS: Glucose,Whole Blood 193 mg/dL (75-99)
[2019-12-19] MEDS: CYCLOBENZAPRINE 5 MG TAB PO SCH ×3 (06:55→20:57)
[2019-12-19] MEDS: INSULIN ASPART (NovoLOG) 100 UNIT/ML VIAL SQ SCH ×4 (06:55→20:59)
[2019-12-19] MEDS: oxyCODONE ER 15 MG TAB.ER.12H PO SCH ×2 (08:43→20:58)
[2019-12-19] MEDS: FUROSEMIDE 40 MG TAB PO SCH (08:45)
[2019-12-19] MEDS: SENNOSIDES-DOCUSATE SODIUM 1 EACH TAB PO SCH (08:45)
[2019-12-19] MEDS: ENOXAPARIN 100 MG/ML SYRINGE SQ SCH ×2 (08:46→21:07)
[2019-12-19] MEDS: FENOFIBRATE 160 MG TAB PO SCH (08:46)
[2019-12-19] MEDS: amLODIPine 5 MG TAB PO SCH (08:46)
[2019-12-19] MEDS: METOPROLOL TARTRATE 25 MG TAB PO SCH ×2 (08:46→20:57)
[2019-12-19] MEDS: lamoTRIgine 100 MG TAB PO SCH ×2 (08:46→20:57)
[2019-12-19] MEDS: FAMOTIDINE 20 MG TAB PO SCH (08:46)
[2019-12-19] MEDS: FERROUS SULFATE 325 MG TAB PO SCH ×2 (08:46→20:57)
[2019-12-19] MEDS: LIDOCAINE 5% PATCH TOPICAL SCH (08:48)
--- NOTE | 2019-12-19 09:00 | P.PN ---
Subjective Progress Note Date: 12/19/19 Principal diagnosis: This is a 54-year-old male followed up for acute kidney injury and hypercalcemia. The acute kidney injury is likely combination of hypercalcemia and possibly vancomycin. Hypercalcemia workup has been so far negative, PTH related peptide is not available yet the rest of the workup is negative. He has been treated with pamidronate. Calcium is still up at 11.7. Creatinine is improved from 2.81-2.18. He says his feeling fairly well except for lack of sleep because of the interventions at night for blood pressure and vital signs etc. No nausea vomiting good appetite no fever chills mild cough no shortness of breath at rest. He is on IV Lasix drip He is known with diabetes, obstructive sleep apnea, chronic pancreatitis bipolar disorder underwent circumflex by to spine surgery 10/10/2019 status post cervical spine surgery twice with abscess, status post drainage Objective - Vital Signs Vital signs: Vital Signs Temp 98.3 F 12/19/19 08:00 Pulse 92 12/19/19 08:00 Resp 20 12/19/19 08:00 BP 180/74 12/19/19 08:00 Pulse Ox 92 L 12/19/19 08:00 Intake & Output 12/18/19 12/19/19 12/19/19 18:59 06:59 18:59 Intake Total 357 300 Output Total 750 300 Balance -393 0 Weight 97 kg 96.5 kg Intake: Oral 357 300 Output: Urine 750 300 Stool 0 Other: Voiding Method Urinal # Voids 0 # Bowel Movements 0 On exam she is awake alert oriented comfortable HEENT exam no JVP neck is supple no facial asymmetry Lungs are clear to auscultation fair air entry bilaterally Heart sounds are unremarkable for any murmur rub gallop Abdomen soft nontender Extremity exam reveals bilateral Sameer wraps he has minimal edema that I can see in his toes due to Neurologically awake alert oriented - Labs CBC & Chem 7: 12/17/19 07:52 12/18/19 07:01 Labs: Abnormal Lab Results - Last 24 Hours (Table) 12/18/19 12/18/19 12/18/19 Range/Units 07:01 07:01 11:49 POC Glucose (mg/dL) 177 H (75-99) mg/dL C-Reactive Protein 252.7 H (<10.0) mg/L Procalcitonin 0.75 H (0.02-0.09) ng/mL 12/18/19 12/18/19 12/19/19 Range/Units 16:37 20:07 06:04 POC Glucose (mg/dL) 193 H 297 H 193 H (75-99) mg/dL C-Reactive Protein (<10.0) mg/L Procalcitonin (0.02-0.09) ng/mL Assessment and Plan Plan: Impression 1. Acute kidney injury secondary to common initial hypercalcemia and vancomycin possibly. Improving 2. Hypercalcemia cause unclear so far workup has been negative. PTH related peptide is not available the rest of the workup is negative Possibility of immobilization associated hypercalcemia or malignancy needs to be considered 3. Status post spine surgery with removal of hardware etc. and abscess. On vancomycin last vancomycin level was 20 which is high dated 12/09/2019 4. On IV Lasix drip changed to by mouth Recommendation 1. Maintain current medications 2. Check PTH related peptide 3. Monitor calcium and creatinine and urine output 4. Watch vancomycin level closely
[2019-12-19] MEDS: IPRATROPIUM-ALBUTEROL 3 ML NEB INHALATION PRN ×4 (09:08→20:15)
[2019-12-19 11:56] LABS: Glucose,Whole Blood 238 mg/dL (75-99)
--- NOTE | 2019-12-19 13:44 | PN ---
PROGRESS NOTE DATE OF SERVICE: 12/19/2019 REASON FOR FOLLOW UP: 1. C7 paraspinal abscess. 2. Pneumonia. INTERVAL HISTORY: Patient is currently afebrile. The patient is complaining of he cannot breathe patient. He did have a cough but not bringing up any sputum. No chest pain. No nausea. No abdominal pain or diarrhea or pain to the neck. PHYSICAL EXAMINATION: Blood pressure 118/74 with a pulse of 92, temperature 98.3. He is 92% on high-flow oxygen. General description is a middle-aged male up in the chair in no distress. Respiratory system: Unlabored breathing, decreased breath sounds in the base, with no wheeze. Heart S1, S2. Regular rate and rhythm. Abdomen soft, no tenderness. LABS: No new labs have been obtained today. His white count was normal on his last blood draw. DIAGNOSTIC IMPRESSION AND PLAN: 1. Patient with known paraspinal abscess status post removal of the hardware an I and D. The patient is currently covered with daptomycin and the patient did have renal insufficiency with vancomycin, to continue. 2. Pneumonia, covered with Zosyn. Try to obtain a sputum and monitor clinical course closely. MMODL / IJN: [id number] /
--- NOTE | 2019-12-19 13:57 | P.PN ---
Subjective Progress Note Date: 12/19/19 Principal diagnosis: Hypoxemia, shortness of breath, altered mentation 54-year-old white male patient of Dr. Wood with past medical history of hypertension, diabetes mellitus, obstructive sleep apnea on BiPAP, chronic back pain, chronic smoker, history of anxiety, depression, who was recently hospitalized from 10/30/2019 through 11/11/2019 when he came in for evaluation o f severe shoulder pain after she sustained a fall at home a few weeks following his cervical spine surgery on 10/11/2019 for traumatic T7 burst fracture. Computed tomography scan of the cervical spine revealed traumatic displacement of anterior cervical internal fixation from C6 to T1, and on 10/31/2019 patient underwent anterior cervical decompression and fusion of C6 through T1 extending up to C5 with revision corpectomy C7 with short cage extending from C6 through T1 and posterior cervical fusion of C5 through T2. Patient had an episode of chest pain during the last admission, was evaluated by cardiology, EKG and echocardiogram without significant findings, d-dimer was elevated, CTA chest was without evidence of pulmonary embolism. Patient was discharged to [facility]. Of note during his surgery. Patient was found to have a cervical epidural abscess positive for Staphylococcus epidermidis and he was discharged with a PICC line in place for vancomycin infusions for 6 weeks. On 12/09/2019 patient was brought into the emergency department for evaluation of altered mental status, and hypoxemia with O2 saturations of 88%, blood sugar was 66 patient was given half amp of glucose with improvement of his symptoms. His oral membranes are extremely dry, patient is unclear whether he has been eating or drinking well. He seems somewhat confused, he is currently on 5 L of oxygen, he has removed his oxygen, and he is desaturating into the low 80s, seems leth argic. Denies any fevers, denies any dyspnea. Chest x-ray showed patchy perihilar and basilar infiltrates with a concern for pneumonia. Brain CT showed no acute abnormality. EKG showed normal sinus rhythm. Labs showed a white blood cell count of 14.7, hemoglobin of 8.5, INR is 1.2, sodium is 134, potassium is 4.2, chloride is 97, CO2 31, BUN is 26, creatinine is 1.56, lactic acid 0.8, troponin is 1.650, proBNP is 1200, urinalysis without sign of infection. Current antibiotic coverage is in the form of azithromycin, Zosyn, and we resumed his vancomycin for recent cervical spine abscess. COVID 19 PCR was sent, pending at this time. Patient is afebrile, he is lethargic, but breathing is nonlabored, he is a poor historian, he is confused. On 12/10/2019 patient seen in follow-up on selective care unit, he is much more awake today, overnight she was the BiPAP with settings of 12/5 and FiO2 of 45%, he is currently on 4 L of oxygen, he sitting up on the edge of the bed, in some questions appropriately, denies any acute distress, his been afebrile overnight. He was started on IV Lasix, continues on antibiotics including vancomycin and Zosyn, no hemoptysis, no completed chest pain, echocardiogram is pending, patient was started on therapeutic doses of Lovenox, lung sounds are diminished, with crackles in the mid to bilateral lower lobes. His troponin is 2.73. Cardiology consultation is pending, coronavirus was negative On 12/11/2019 patient seen in follow-up on selective care unit, he is awake and alert, resting comfortably in bed, he is currently on 6 L of oxygen pulse ox 96%, vital signs stable, afebrile, breathing is nonlabored, no wheezing, no rhonchi, no significant cough or congestion. Much more awake on today's exam, his been wearing his BiPAP at night. Today's chest x-ray shows stable alveolar and interstitial edema, despite the diuretics. Afebrile, ID service is following, her cultures have shown no growth, current antibiotic coverage is in the form of daptomycin and Zosyn. His swallowing evaluation was within normal limits. The patient is seen today 12/12/2019 in follow-up on the selective care unit. He is currently sitting up at the bedside. Awake and alert in no acute distress. Breathing a bit easier today compared to yesterday. Maintaining O2 saturations in the 90s on 4 L high flow nasal cannula. He's been afebrile. Blood culture reveals no growth to date. Sodium 135. Potassium 3.2. Creatinine 2.36. He is continued on Zosyn and daptomycin. Remains on bronchodilators. The patient is seen today 12/13/2019 in follow-up on the selective care unit. He is currently resting comfortably in bed. Awake and alert in no acute d istress. He denies any worsening shortness of breath, cough or congestion. He is maintaining good O2 saturation in the 90s on 4 L per nasal cannula. He does desaturate into the 70s on room air. He's afebrile. Blood culture reveals no growth. White count 12.6. Hemoglobin 10.2. Sodium 1:30. Potassium 4.0. Creatinine 2.81. He remains on DuoNeb inhalations, daptomycin, Zosyn. Chest x- ray reveals persistent prominence of pulmonary interstitium. Right infrahilar infiltrate persists although is improving. Small effusions. Patient is seen today 12/16/2019 in follow-up on the selective care unit. He is currently resting comfortably in bed. Awake and alert in no acute distress. He denies any worsening shortness of breath, cough or congestion. He appears alert and oriented at times and other times he appears confused. Maintaining O2 saturations in the 90s on 6 L high flow nasal cannula, alternating with BiPAP at 45% FiO2. He is afebrile. Blood cultures reveal no growth. White count 13.5. Hemoglobin 10.2. Sedimentation 4. Potassium 3.9. Creatinine 2.23. Remains on bronchodilators. Currently on daptomycin. Lovenox for DVT prophylaxis. The patient is seen today 12/17/2019 in follow-up on the selective care unit. He is currently resting in bed. He is on the BiPAP. Currently 12/5 and 45% FiO2. Apparently the patient had pulled his BiPAP off earlier and was found on the floor. At that time his O2 saturation was in the 70s. Recovered and back at 97%. Arterial blood gases reveal a pO2 of 70, pCO2 44, pH 7.46. Blood cultures reveal no growth. White count 10.6. Hemoglobin 8.3. Sodium 134. Potassium 3.6. Bicarb 33. Creatinine 2.18. He remains on DuoNeb inhalations, antibiotics in the form of daptomycin. He is on Lovenox. Received Lasix IVP 1 today. The patient is seen today 12/18/2019 in follow-up on the selective care unit. He is currently sitting up in a chair at the bedside. Awake and alert in no acute distress. Currently off the BiPAP. Maintaining O2 saturations in the 90s on 10 L high flow nasal cannula. He is afebrile. Still tachycardic. Hypertensive. Blood culture reveals no growth. Sodium 135. Potassium 3.8. Creatinine 2.18. C-reactive protein 252. Pro-calcitonin 0.75. Remains on Zosyn and daptomycin. Lovenox for DVT prophylaxis. Received Lasix 40 mg IVP 1 today. The patient is seen today 12/19/2019 in follow-up on the selective care unit. He is currently resting comfortably in bed. Wearing the BiPAP with settings of 12/5 and 45% FiO2. Comfortable in no acute distress. He has been slow to progress. He's been having a poor appetite lately now. Blood cultures reveal no growth. Blood glucose 193. He remains on bronchodilators, antibiotics in the form of daptomycin and Zosyn, Lovenox, diuretics. Objective - Vital Signs Vital signs: Vital Signs Temp 98.3 F 12/19/19 08:00 Pulse 112 H 12/19/19 12:48 Resp 20 12/19/19 12:00 BP 138/79 12/19/19 12:00 Pulse Ox 88 L 12/19/19 12:00 Intake & Output 12/18/19 12/19/19 12/19/19 18:59 06:59 18:59 Intake Total 667 300 236 Output Total 1550 300 Balance -883 0 236 Weight 97 kg 96.5 kg Intake: IV 150 DAPTOmycin 600 mg In 50 Sodium Chloride 0.9% 50 ml @ 100 mls/hr IVPB Q24HR [facility] Rx#:[id number] Piperacillin-Tazobactam 3 100 .375 gm In Sodium Chloride 0.9% 100 ml @ 25 mls/hr IVPB Q8HR [facility] Rx# :[id number] Intake, IV Titration 160 Amount Dextrose 5%-0.9% NaCl 1, 160 000 ml @ 20 mls/hr IV . Q24H [facility] Rx#:[id number] Oral 357 300 236 Output: Urine 1550 300 Stool 0 Other: Voiding Method Urinal # Voids 2 2 # Bowel Movements 0 - Exam GENERAL EXAM: Alert, 54-year-old male, appears older than stated age, resting comfortably in bed, on BiPAP 12/5 and 45% FiO2, comfortable in no apparent distress. HEAD: Normocephalic/atraumatic. EYES: Normal reaction of pupils, equal size. Conjunctiva pink, sclera white. NOSE: Clear with pink turbinates. THROAT: No erythema or exudates. NECK: No masses, no JVD, no thyroid enlargement, no adenopathy. Posterior neck incision is clean dry and intact. Patient has a C-collar in place CHEST: No chest wall deformity. Symmetrical expansion. LUNGS: Equal air entry with coarse crackles at bilateral lower and mid lungs CVS: Regular rate and rhythm, normal S1 and S2, no gallops, no murmurs, no rubs ABDOMEN: Soft, nontender. No hepatosplenomegaly, normal bowel sounds, no guarding or rigidity. EXTREMITIES: No clubbing, no edema, no cyanosis, 2+ pulses and upper and lower extremities. MUSCULOSKELETAL: Muscle strength and tone normal. SPINE: No scoliosis or deformity SKIN: No rashes CENTRAL NERVOUS SYSTEM: No focal deficits, tone is normal in all 4 extremities. PSYCHIATRIC: Alert and oriented -3. Appropriate affect. Intact judgment and insight - Labs CBC & Chem 7: 12/17/19 07:52 12/18/19 07:01 Labs: Abnormal Lab Results - Last 24 Hours (Table) 12/18/19 12/18/19 12/19/19 Range/Units 16:37 20:07 06:04 POC Glucose (mg/dL) 193 H 297 H 193 H (75-99) mg/dL 12/19/19 Range/Units 11:54 POC Glucose (mg/dL) 238 H (75-99) mg/dL Assessment and Plan Assessment: #1. Acute on chronic hypoxic respiratory failure related to possibility of pneumonia, chest x-ray showed patchy perihilar and basilar infiltrates, rule out possibility of aspiration, remains on daptomycin and Zosyn #2. Altered mental status likely related to metabolic encephalopathy #3. Elevated troponin, EKG without significant findings, recent echocardiogram showed preserved EF of 55-60%, no significant valvular disease, PA pressure of 26.3 mmHg. #4. Recent hospitalization for cervical spine epidural abscess of anterior cervical C7, and patient was discharged to [facility]CF on the vancomycin infusions for 6 weeks and which he continues #5. History of cervical myelopathy is status post surgical revision of C6 through T1 and corpectomy of C7 due to trauma, following a fall. Patient had open reduction and internal fixation carpectomy of C7 and fusion of C6 to T1 for recent C7 burst fracture on 10/11/2019 #6. Acute kidney injury, worsening related to diuretic therapy #7. Obstructive sleep apnea on BiPAP therapy at home #8. Chronic smoker, unknown whether the patient is still smoking #9. Suspect underlying history of COPD #10. Diabetes mellitus type 2 #11. Hypertension #12. History of pancreatitis #13. History of anxiety, depression #14. Poor overall functional performance based on the above-mentioned multiple comorbidities Plan: The patient was seen and evaluated by Dr. Sifuentes Continue the current treatment plan Titrate down the FiO2 as tolerated, utilize BiPAP as needed during the day and throughout the evenings Repeat chest x-ray Saturday We'll continue to follow I, the cosigning physician, performed a history & physical examination of the pa tient. Lungs sounds with coarse crackles in the bilateral bases. Maintaining good O2 saturations in the 90s on 45% FiO2 on the BiPAP 02/05. I discussed the assessment and plan of care with my nurse practitioner, Isela Prasad. I attest to the above note as dictated by her.
[2019-12-19] MEDS: GABAPENTIN 100 MG CAP PO SCH ×2 (16:03→20:58)
[2019-12-19 16:51] LABS: Glucose,Whole Blood 267 mg/dL (75-99)
[2019-12-19 20:01] LABS: Glucose,Whole Blood 281 mg/dL (75-99)
--- NOTE | 2019-12-19 20:54 | P.PN ---
Progress Note - Text Progress Note Date: 12/19/19 Chief Complaint: Tired History of presenting complaint: This is a 54-year-old patient who follows with Dr. thomas from [place]. Chronic stable medical conditions include diabetes mellitus type II on insulin pump.,GERD, hypertension, obstructive sleep apnea uses CPAP, chronic pancreatitis, bipolar disorder and chronic low back pain. 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 underwent cervical spine surgery by Dr. Shanks-on October 10 2019. Patient is here in November-took a fall with displacement of the internal fixation and graft at C6 to T1. Patient underwent surgery in October 30. With removal of hardware and revision fixation At multiple levels. Local abscess was cleaned out. Cultures growing Staphylococcus epidermidis. Has a cervical collar since then. Patient is brought in from the EMS from the rehab. Patient is found to be bit confused. Had oxygen saturation 88% and a blood glucose down to 66. In the ER he reported feeling weak and tired. Not sure about his oral intake. No fever reported. Admitted with acute non-Q-wave WA, acute congestive heart failure exacerbation, possible pneumonia. Put on IV Lasix. Therapeutic Lovenox dose. Patient remained rather lethargic tired sleepy. Creatinine was going up. I did cut back on the dose of patient's long-acting morphine. Also dose of Neurontin cutback. Today-sitting up in a chair. Somewhat anxious. A bit agitated. Wants to go home. Not keen on eating Review of systems: Was done for constitutional, cardiovascular, GI, pulmonary. relevant finding as above Active Medications Al Hydroxide/Mg Hydroxide (Mag Hydrox/Al Hydrox/Simeth 30 Ml Cup) 30 ml PO Q4H PRN PRN Reason: Constipation Albuterol/Ipratropium (Ipratropium-Albuterol 3 Ml Neb) 3 ml INHALATION RT-Q4H PRN PRN Reason: shortness of breath Last Admin: 12/19/19 20:15 Dose: 3 ml Documented by: Amlodipine Besylate (Amlodipine 5 Mg Tab) 5 mg PO DAILY@0900 [facility] Last Admin: 12/19/19 08:46 Dose: 5 mg Documented by: Cyclobenzaprine HCl (Cyclobenzaprine 5 Mg Tab) 5 mg PO TID@0600,1400,2200 [facility] Last Admin: 12/19/19 12:45 Dose: 5 mg Documented by: Enoxaparin Sodium (Enoxaparin 100 Mg/Ml Syringe) 100 mg SQ Q12HR [facility] Last Admin: 12/19/19 08:46 Dose: 100 mg Documented by: Famotidine (Famotidine 20 Mg Tab) 20 mg PO DAILY [facility] Last Admin: 12/19/19 08:46 Dose: 20 mg Documented by: Fenofibrate (Fenofibrate 160 Mg Tab) 160 mg PO DAILY@0900 [facility] Last Admin: 12/19/19 08:46 Dose: 160 mg Documented by: Ferrous Sulfate (Ferrous Sulfate 325 Mg Tab) 325 mg PO BID@08,2099 [facility] Last Admin: 12/19/19 08:46 Dose: 325 mg Documented by: Furosemide (Furosemide 40 Mg Tab) 40 mg PO DAILY [facility] Last Admin: 12/19/19 08:45 Dose: 40 mg Documented by: Gabapentin (Gabapentin 100 Mg Cap) 100 mg PO TID [facility] Last Admin: 12/19/19 16:03 Dose: 100 mg Documented by: Daptomycin 600 mg/ Sodium (Chloride) 50 mls @ 100 mls/hr IVPB Q24HR [facility]; Protocol Last Admin: 12/19/19 08:47 Dose: 100 mls/hr Documented by: Piperacillin Sod/Tazobactam (Sod 3.375 gm/ Sodium Chloride) 100 mls @ 25 mls/hr IVPB Q8HR [facility] Last Admin: 12/19/19 16:04 Dose: 25 mls/hr Documented by: Dextrose/Sodium Chloride (Dextrose 5%-Ns Iv Soln) 1,000 mls @ 20 mls/hr IV .Q24H [facility] Last Admin: 12/19/19 00:49 Dose: 20 mls/hr Documented by: Insulin Aspart (Insulin Aspart (Novolog) 100 Unit/Ml Vial) 0 unit SQ ACHS [facility]; Protocol Last Admin: 12/19/19 17:47 Dose: 5 unit Documented by: Lamotrigine (Lamotrigine 100 Mg Tab) 200 mg PO BID@0900,2100 [facility] Last Admin: 12/19/19 08:46 Dose: 200 mg Documented by: Magnesium Hydroxide (Magnesium Hydroxide 2,400 Mg/10 Ml Cup) 2,400 mg PO DAILY PRN PRN Reason: Constipation Last Admin: 12/11/19 21:39 Dose: 2,400 mg Documented by: Metoprolol Tartrate (Metoprolol Tartrate 25 Mg Tab) 25 mg PO BID@0900,2100 [facility] Last Admin: 12/19/19 08:46 Dose: 25 mg Documented by: Miscellaneous Information (Pneumonia Protocol Utilized 1 Each [facility]) 1 each PO ONCE PRN PRN Reason: Per Protocol Miscellaneous Information (Potassium Replacement Protocol 1 Each [facility]) 1 each MISCELLANE DAILY PRN; Protocol PRN Reason: Per Protocol Ondansetron HCl (Ondansetron 4 Mg Tab) 4 mg PO Q8HR PRN PRN Reason: Nausea And Vomiting Last Admin: 12/11/19 20:14 Dose: 4 mg Documented by: Oxycodone HCl (Oxycodone Er 15 Mg Tab.Er.12h) 15 mg PO Q12HR [facility] Last Admin: 12/19/19 08:43 Dose: 15 mg Documented by: Quetiapine Fumarate (Quetiapine 100 Mg Tab) 100 mg PO HS [facility] Last Admin: 12/18/19 21:22 Dose: 100 mg Documented by: Senna/Docusate Sodium (Sennosides-Docusate Sodium 1 Each Tab) 4 each PO DAILY@0900 [facility] Last Admin: 12/19/19 08:45 Dose: 4 each Documented by: Tamsulosin HCl (Tamsulosin 0.4 Mg Cap.Er.24h) 0.4 mg PO HS@2100 [facility] Last Admin: 12/18/19 21:23 Dose: 0.4 mg Documented by: Trazodone HCl (Trazodone Hcl 100 Mg Tab) 100 mg PO HS@2100 [facility] Last Admin: 12/18/19 21:23 Dose: 100 mg Documented by: Physical examination: VITAL SIGNS: 98.3, 92, 20, 138/79, GENERAL: Sitting up in a chair, a bit restless EYES: Pupils equal. Conjunctiva normal. NECK: .Cervical collar HEART: First and second heart sounds are normal; no edema. LUNGS: Respiratory rate normal, diminished breath sounds ABDOMEN: Soft, no tenderness,, no guarding rigidity, liver spleen not palpable, no masses palpable. PSYCH: Able to answer questions NEUROLOGICAL: Cranial nerves grossly intact, moving all 4 limbs INVESTIGATIONS, reviewed in the clinical context: Potassium 3.8 creatinine 2.18 Previous testing: White count 14.7 hemoglobin 8.5 platelets 328 potassium 4.2 bun 26 creatinine 1.56 Accu-Cheks 102, 78, 66 Troponin I 1.6, 2.7, 1.7 proBNP 1200 EKG tracing personally reviewed by me-normal sinus rhythm Chest x-ray film personally reviewed by me-pulmonary edema, can rule out infiltrate 2-D echocardiogram-EF 60-65% Previous testing: Creatinine 1.0 Assessment: -Acute non-Q wave myocardial infarction-to be managed conservatively -Possible pneumonia, suspect gram-negative organism -Acute congestive heart failure from diastolic dysfunction EF 60 have a 65%- improved - October 10-C6 C7 T1 removal of bone fragments from fracture of C7, decompression fusion and plating-4 C7 fracture, cervical spine stenosis , myelopathy disc herniation: Now presented with trauma with Computed tomography scan of the spine showing dislocation of anterior cervical fusionand C7 increased kyphosis at C6-C7; fracture of the left C6 lamina-status post replacement and repair. -History of C7 epidural abscess that was cleaned. Cultures positive for Staphylococcus epidermidis. From previous admission -Diabetes mellitus type 2, uncontrolled with , hypoglycemia better -Acute metabolic encephalopathy could be from medications in the setting of acute kidney injury especially with decreased oral intake-improved from cutting back on the dose of long-acting morphine. -GERD -Essential hypertension -Obstructive sleep apnea uses a BiPAP machine -Bipolar disorder -Chronic low back pain -Obesity BMI 30.6 -COPD in a current smoker -chronic pancreatitis. -Acute kidney injury could be from vancomycin, also prerenal from decreased oral intake- Plan: Patient encouraged to increase oral intake. Repeat labs in the morning. Increase Neurontin 100 mg 3 times a day. Patient was a much higher dose at home. Repeat labs
[2019-12-19] MEDS: traZODone HCL 100 MG TAB PO SCH (20:58)
[2019-12-19] MEDS: QUEtiapine 100 MG TAB PO SCH (21:07)
[2019-12-19] MEDS: TAMSULOSIN 0.4 MG CAP.ER.24H PO SCH (21:08)
[2019-12-19] MEDS ORDERED: ZIPRASIDONE 20 MG VIAL IM ONE (21:52)
[2019-12-20] MEDS: PIPERACILLIN-TAZOBACTAM 3.375 GM in SODIUM CHLORIDE 0.9% 100 ML IVPB SCH ×3 (00:10→15:59)
[2019-12-20 06:09] LABS: Glucose,Whole Blood 141 mg/dL (75-99)
[2019-12-20] MEDS: INSULIN ASPART (NovoLOG) 100 UNIT/ML VIAL SQ SCH ×4 (06:51→20:42)
[2019-12-20] MEDS: CYCLOBENZAPRINE 5 MG TAB PO SCH ×3 (06:51→20:17)
[2019-12-20 07:23] LABS: Calcium 10.2 mg/dL (8.4-10.2)
[2019-12-20] MEDS: IPRATROPIUM-ALBUTEROL 3 ML NEB INHALATION PRN ×4 (07:59→20:44)
[2019-12-20] MEDS: oxyCODONE ER 15 MG TAB.ER.12H PO SCH ×2 (09:29→20:15)
[2019-12-20] MEDS: amLODIPine 5 MG TAB PO SCH (09:31)
[2019-12-20] MEDS: GABAPENTIN 100 MG CAP PO SCH ×3 (09:31→20:15)
[2019-12-20] MEDS: FAMOTIDINE 20 MG TAB PO SCH (09:31)
[2019-12-20] MEDS: FENOFIBRATE 160 MG TAB PO SCH (09:31)
[2019-12-20] MEDS: SENNOSIDES-DOCUSATE SODIUM 1 EACH TAB PO SCH (09:31)
[2019-12-20] MEDS: lamoTRIgine 100 MG TAB PO SCH ×2 (09:32→20:18)
[2019-12-20] MEDS: ENOXAPARIN 100 MG/ML SYRINGE SQ SCH ×2 (09:32→20:17)
[2019-12-20] MEDS: METOPROLOL TARTRATE 25 MG TAB PO SCH ×2 (09:32→20:16)
[2019-12-20] MEDS: FERROUS SULFATE 325 MG TAB PO SCH ×2 (09:32→20:16)
[2019-12-20] MEDS: FUROSEMIDE 40 MG TAB PO SCH (09:32)
--- NOTE | 2019-12-20 10:46 | P.PN ---
Subjective Progress Note Date: 12/20/19 Principal diagnosis: This is a 54-year-old male followed up for acute kidney injury and hypercalcemia. The acute kidney injury is likely combination of hypercalcemia and possibly vancomycin. Vancomycin was started because of the possible abscess in his cervical spine surgical area and has been stopped yesterday. Hypercalcemia workup has been so far negative, PTH related peptide is not available yet the rest of the workup is negative. He has been treated with pamidronate. Calcium is still up at 11.7 , came down to 10.2 as of this morning. Creatinine had improved from 2.81-2.18, and this morning which is up to 2.6 again Is complaining of shortness of breath. He is known with diabetes, obstructive sleep apnea, chronic pancreatitis bipolar disorder underwent circumflex by to spine surgery 10/10/2019 status post cervical spine surgery twice with abscess, status post drainage Objective - Vital Signs Vital signs: Vital Signs Temp 98.2 F 12/19/19 20:00 Pulse 100 12/20/19 08:14 Resp 18 12/20/19 04:00 BP 131/77 12/20/19 04:00 Pulse Ox 96 12/20/19 04:00 Intake & Output 12/19/19 12/20/19 12/20/19 18:59 06:59 18:59 Intake Total 236 Balance 236 Weight 94.5 kg Intake: Oral 236 Other: # Voids 2 1 1 On examination he is somewhat short of breath and anxious Patient exam no JVP neck is supple he has a collar therefore difficult to examine his neck Lungs are significant for bilateral coarse crackles with fair air entry bilater ally Heart sounds are unremarkable for any murmur rub gallop Abdomen soft nontender Extremity exam trace edema. Neurologically awake alert oriented somewhat restless - Labs CBC & Chem 7: 12/17/19 07:52 12/20/19 06:34 Labs: Abnormal Lab Results - Last 24 Hours (Table) 12/19/19 12/19/19 12/19/19 Range/Units 11:54 16:49 19:58 Potassium (3.5-5.1) mmol/L Chloride (98-107) mmol/L Carbon Dioxide (22-30) mmol/L BUN (9-20) mg/dL Creatinine (0.66-1.25) mg/dL Glucose (74-99) mg/dL POC Glucose (mg/dL) 238 H 267 H 281 H (75-99) mg/dL 12/20/19 12/20/19 Range/Units 06:07 06:34 Potassium 3.0 L (3.5-5.1) mmol/L Chloride 93 L (98-107) mmol/L Carbon Dioxide 34 H (22-30) mmol/L BUN 40 H (9-20) mg/dL Creatinine 2.61 H (0.66-1.25) mg/dL Glucose 137 H (74-99) mg/dL POC Glucose (mg/dL) 141 H (75-99) mg/dL Assessment and Plan Plan: Impression 1. Acute kidney injury secondary to combination of hypercalcemia and vancomycin. Creatinine improved but this morning it went up from 2.1-2.6. Rule out bladder retention. Rule out congestive heart failure. 2. Hypercalcemia cause unclear so far workup has been negative. PTH related peptide is not available the rest of the workup is negative. Possibility of immobilization associated hypercalcemia or malignancy needs to be considered. Calcium has improved to 10.2 this morning from 11.7 3. Status post spine surgery with removal of hardware etc. and abscess. On vancomycin last vancomycin level was 20 which is high dated 12/09/2019 4. On IV Lasix drip changed to by mouth Recommendation 1. Check bladder residual 2. Chest x-ray stat 3. Increase Lasix to 80 mg once and report back urine output to ks 4. Check PTH related peptide 5. Monitor calcium and creatinine and urine output
[2019-12-20] MEDS ORDERED: FUROSEMIDE 10 MG/ML 10 ML VIAL IV ONE (11:00)
[2019-12-20 11:48] LABS: Glucose,Whole Blood 183 mg/dL (75-99)
--- NOTE | 2019-12-20 11:55 | XR ---
EXAMINATION TYPE: XR chest 1V portable DATE OF EXAM: 12/20/2019 Comparison: 12/17/2019 Clinical History: 54-year-old male chf/pneumonia Findings: Left PICC tip not seen beyond the mid SVC. ACDF and posterior cervical fusion hardware. Heart size di fficult to determine due to diffuse interstitial and patchy airspace opacities. Continued small right pleural effusion. Impression: Continued diffuse interstitial and patchy airspace opacities as well as small right pleural effusion.
[2019-12-20] MEDS ORDERED: FLUCONAZOLE 100 MG TAB PO ONE (12:00)
--- NOTE | 2019-12-20 12:31 | P.PN ---
Subjective Progress Note Date: 12/20/19 Principal diagnosis: Hypoxemia, shortness of breath, altered mentation 54-year-old white male patient of Dr. Wood with past medical history of hypertension, diabetes mellitus, obstructive sleep apnea on BiPAP, chronic back pain, chronic smoker, history of anxiety, depression, who was recently hospitalized from 10/30/2019 through 11/11/2019 when he came in for evaluation o f severe shoulder pain after she sustained a fall at home a few weeks following his cervical spine surgery on 10/11/2019 for traumatic T7 burst fracture. Computed tomography scan of the cervical spine revealed traumatic displacement of anterior cervical internal fixation from C6 to T1, and on 10/31/2019 patient underwent anterior cervical decompression and fusion of C6 through T1 extending up to C5 with revision corpectomy C7 with short cage extending from C6 through T1 and posterior cervical fusion of C5 through T2. Patient had an episode of chest pain during the last admission, was evaluated by cardiology, EKG and echocardiogram without significant findings, d-dimer was elevated, CTA chest was without evidence of pulmonary embolism. Patient was discharged to [facility]. Of note during his surgery. Patient was found to have a cervical epidural abscess positive for Staphylococcus epidermidis and he was discharged with a PICC line in place for vancomycin infusions for 6 weeks. On 12/09/2019 patient was brought into the emergency department for evaluation of altered mental status, and hypoxemia with O2 saturations of 88%, blood sugar was 66 patient was given half amp of glucose with improvement of his symptoms. His oral membranes are extremely dry, patient is unclear whether he has been eating or drinking well. He seems somewhat confused, he is currently on 5 L of oxygen, he has removed his oxygen, and he is desaturating into the low 80s, seems leth argic. Denies any fevers, denies any dyspnea. Chest x-ray showed patchy perihilar and basilar infiltrates with a concern for pneumonia. Brain CT showed no acute abnormality. EKG showed normal sinus rhythm. Labs showed a white blood cell count of 14.7, hemoglobin of 8.5, INR is 1.2, sodium is 134, potassium is 4.2, chloride is 97, CO2 31, BUN is 26, creatinine is 1.56, lactic acid 0.8, troponin is 1.650, proBNP is 1200, urinalysis without sign of infection. Current antibiotic coverage is in the form of azithromycin, Zosyn, and we resumed his vancomycin for recent cervical spine abscess. COVID 19 PCR was sent, pending at this time. Patient is afebrile, he is lethargic, but breathing is nonlabored, he is a poor historian, he is confused. On 12/10/2019 patient seen in follow-up on selective care unit, he is much more awake today, overnight she was the BiPAP with settings of 12/5 and FiO2 of 45%, he is currently on 4 L of oxygen, he sitting up on the edge of the bed, in some questions appropriately, denies any acute distress, his been afebrile overnight. He was started on IV Lasix, continues on antibiotics including vancomycin and Zosyn, no hemoptysis, no completed chest pain, echocardiogram is pending, patient was started on therapeutic doses of Lovenox, lung sounds are diminished, with crackles in the mid to bilateral lower lobes. His troponin is 2.73. Cardiology consultation is pending, coronavirus was negative On 12/11/2019 patient seen in follow-up on selective care unit, he is awake and alert, resting comfortably in bed, he is currently on 6 L of oxygen pulse ox 96%, vital signs stable, afebrile, breathing is nonlabored, no wheezing, no rhonchi, no significant cough or congestion. Much more awake on today's exam, his been wearing his BiPAP at night. Today's chest x-ray shows stable alveolar and interstitial edema, despite the diuretics. Afebrile, ID service is following, her cultures have shown no growth, current antibiotic coverage is in the form of daptomycin and Zosyn. His swallowing evaluation was within normal limits. The patient is seen today 12/12/2019 in follow-up on the selective care unit. He is currently sitting up at the bedside. Awake and alert in no acute distress. Breathing a bit easier today compared to yesterday. Maintaining O2 saturations in the 90s on 4 L high flow nasal cannula. He's been afebrile. Blood culture reveals no growth to date. Sodium 135. Potassium 3.2. Creatinine 2.36. He is continued on Zosyn and daptomycin. Remains on bronchodilators. The patient is seen today 12/13/2019 in follow-up on the selective care unit. He is currently resting comfortably in bed. Awake and alert in no acute d istress. He denies any worsening shortness of breath, cough or congestion. He is maintaining good O2 saturation in the 90s on 4 L per nasal cannula. He does desaturate into the 70s on room air. He's afebrile. Blood culture reveals no growth. White count 12.6. Hemoglobin 10.2. Sodium 1:30. Potassium 4.0. Creatinine 2.81. He remains on DuoNeb inhalations, daptomycin, Zosyn. Chest x- ray reveals persistent prominence of pulmonary interstitium. Right infrahilar infiltrate persists although is improving. Small effusions. Patient is seen today 12/16/2019 in follow-up on the selective care unit. He is currently resting comfortably in bed. Awake and alert in no acute distress. He denies any worsening shortness of breath, cough or congestion. He appears alert and oriented at times and other times he appears confused. Maintaining O2 saturations in the 90s on 6 L high flow nasal cannula, alternating with BiPAP at 45% FiO2. He is afebrile. Blood cultures reveal no growth. White count 13.5. Hemoglobin 10.2. Sedimentation 4. Potassium 3.9. Creatinine 2.23. Remains on bronchodilators. Currently on daptomycin. Lovenox for DVT prophylaxis. The patient is seen today 12/17/2019 in follow-up on the selective care unit. He is currently resting in bed. He is on the BiPAP. Currently 12/5 and 45% FiO2. Apparently the patient had pulled his BiPAP off earlier and was found on the floor. At that time his O2 saturation was in the 70s. Recovered and back at 97%. Arterial blood gases reveal a pO2 of 70, pCO2 44, pH 7.46. Blood cultures reveal no growth. White count 10.6. Hemoglobin 8.3. Sodium 134. Potassium 3.6. Bicarb 33. Creatinine 2.18. He remains on DuoNeb inhalations, antibiotics in the form of daptomycin. He is on Lovenox. Received Lasix IVP 1 today. The patient is seen today 12/18/2019 in follow-up on the selective care unit. He is currently sitting up in a chair at the bedside. Awake and alert in no acute distress. Currently off the BiPAP. Maintaining O2 saturations in the 90s on 10 L high flow nasal cannula. He is afebrile. Still tachycardic. Hypertensive. Blood culture reveals no growth. Sodium 135. Potassium 3.8. Creatinine 2.18. C-reactive protein 252. Pro-calcitonin 0.75. Remains on Zosyn and daptomycin. Lovenox for DVT prophylaxis. Received Lasix 40 mg IVP 1 today. The patient is seen today 12/19/2019 in follow-up on the selective care unit. He is currently resting comfortably in bed. Wearing the BiPAP with settings of 12/5 and 45% FiO2. Comfortable in no acute distress. He has been slow to progress. He's been having a poor appetite lately now. Blood cultures reveal no growth. Blood glucose 193. He remains on bronchodilators, antibiotics in the form of daptomycin and Zosyn, Lovenox, diuretics. The patient is seen today 12/20/2019 in follow-up on the selective care unit. He is currently resting flat in bed. Complaining of being somewhat short of breath. He has been utilizing 10 L high flow alternating with BiPAP support. Chest x-ray continues to revealed diffuse interstitial and patchy airspace opacities. Small right pleural effusion. Sodium 137. Potassium 3.0. Creatinine 2.61. Bicarb 34. Lasix 80 mg IVP 1 today per nephrology. He remains on bronchodilators, daptomycin, Zosyn. Objective - Vital Signs Vital signs: Vital Signs Temp 98.2 F 12/19/19 20:00 Pulse 108 H 12/20/19 11:46 Resp 18 12/20/19 04:00 BP 131/77 12/20/19 04:00 Pulse Ox 96 12/20/19 04:00 Intake & Output 12/19/19 12/20/19 12/20/19 18:59 06:59 18:59 Intake Total 236 Balance 236 Weight 94.5 kg Intake: Oral 236 Other: # Voids 2 1 1 - Exam GENERAL EXAM: Alert, 54-year-old male, appears older than stated age, resting flat in bed, on BiPAP 12/5 and 45% FiO2, alternating with 10 L high flow nasal cannula. HEAD: Normocephalic/atraumatic. EYES: Normal reaction of pupils, equal size. Conjunctiva pink, sclera white. NOSE: Clear with pink turbinates. THROAT: No erythema or exudates. NECK: No masses, no JVD, no thyroid enlargement, no adenopathy. Posterior neck incision is clean dry and intact. Patient has a C-collar in place CHEST: No chest wall deformity. Symmetrical expansion. LUNGS: Equal air entry with coarse crackles at bilateral lower and mid lungs CVS: Regular rate and rhythm, normal S1 and S2, no gallops, no murmurs, no rubs ABDOMEN: Soft, nontender. No hepatosplenomegaly, normal bowel sounds, no guarding or rigidity. EXTREMITIES: No clubbing, no edema, no cyanosis, 2+ pulses and upper and lower extremities. MUSCULOSKELETAL: Muscle strength and tone normal. SPINE: No scoliosis or deformity SKIN: No rashes CENTRAL NERVOUS SYSTEM: No focal deficits, tone is normal in all 4 extremities. PSYCHIATRIC: Alert and oriented -3. Appropriate affect. Intact judgment and insight - Labs CBC & Chem 7: 12/17/19 07:52 12/20/19 06:34 Labs: Abnormal Lab Results - Last 24 Hours (Table) 12/19/19 12/19/19 12/20/19 Range/Units 16:49 19:58 06:07 Potassium (3.5-5.1) mmol/L Chloride (98-107) mmol/L Carbon Dioxide (22-30) mmol/L BUN (9-20) mg/dL Creatinine (0.66-1.25) mg/dL Glucose (74-99) mg/dL POC Glucose (mg/dL) 267 H 281 H 141 H (75-99) mg/dL 12/20/19 12/20/19 Range/Units 06:34 11:47 Potassium 3.0 L (3.5-5.1) mmol/L Chloride 93 L (98-107) mmol/L Carbon Dioxide 34 H (22-30) mmol/L BUN 40 H (9-20) mg/dL Creatinine 2.61 H (0.66-1.25) mg/dL Glucose 137 H (74-99) mg/dL POC Glucose (mg/dL) 183 H (75-99) mg/dL Assessment and Plan Assessment: #1. Acute on chronic hypoxic respiratory failure related to possibility of pneumonia, chest x-ray showed patchy perihilar and basilar infiltrates, rule out possibility of aspiration, remains on daptomycin and Zosyn #2. Altered mental status likely related to metabolic encephalopathy #3. Elevated troponin, EKG without significant findings, recent echocardiogram showed preserved EF of 55-60%, no significant valvular disease, PA pressure of 26.3 mmHg. #4. Recent hospitalization for cervical spine epidural abscess of anterior cervical C7, and patient was discharged to ECF on the vancomycin infusions for 6 weeks and which he continues #5. History of cervical myelopathy is status post surgical revision of C6 through T1 and corpectomy of C7 due to trauma, following a fall. Patient had open reduction and internal fixation carpectomy of C7 and fusion of C6 to T1 for recent C7 burst fracture on 10/11/2019 #6. Acute kidney injury, worsening related to diuretic therapy, nephrology is on the case as #7. Obstructive sleep apnea on BiPAP therapy at home #8. Chronic smoker, unknown whether the patient is still smoking #9. Suspect underlying history of COPD #10. Diabetes mellitus type 2 #11. Hypertension #12. History of pancreatitis #13. History of anxiety, depression #14. Poor overall functional performance based on the above-mentioned multiple comorbidities Plan: The patient was seen and evaluated by Dr. Sifuentes Chest x-ray and labs reviewed Remains on bronchodilators, daptomycin, Zosyn IV Lasix 80 mg 1 today per nephrology Titrate down the FiO2 as tolerated, utilize BiPAP as needed during the day and throughout the evenings We'll continue to follow I, the cosigning physician, performed a history & physical examination of the patient. Lungs sounds with coarse crackles in the bilateral bases. Maintaining good O2 saturations in the 90s on 45% FiO2 on the BiPAP 12/5 alternating with 10 L high flow nasal cannula. I discussed the assessment and plan of care with my nurse practitioner, Isela Prasad. I attest to the above note as dictated by her.
--- NOTE | 2019-12-20 15:40 | P.PN ---
Progress Note - Text Progress Note Date: 12/20/19 Chief Complaint: Tired History of presenting complaint: This is a 54-year-old patient who follows with Dr. thomas from [place]. Chronic stable medical conditions include diabetes mellitus type II on insulin pump.,GERD, hypertension, obstructive sleep apnea uses CPAP, chronic pancreatitis, bipolar disorder and chronic low back pain. 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 underwent cervical spine surgery by Dr. Shanks-on October 10 2019. Patient is here in November-took a fall with displacement of the internal fixation and graft at C6 to T1. Patient underwent surgery in October 30. With removal of hardware and revision fixation At multiple levels. Local abscess was cleaned out. Cultures growing Staphylococcus epidermidis. Has a cervical collar since then. Patient is brought in from the EMS from the rehab. Patient is found to be bit confused. Had oxygen saturation 88% and a blood glucose down to 66. In the ER he reported feeling weak and tired. Not sure about his oral intake. No fever reported. Admitted with acute non-Q-wave [place], acute congestive heart failure exacerbation, possible pneumonia. Put on IV Lasix. Therapeutic Lovenox dose. Patient remained rather lethargic tired sleepy. Creatinine was going up. I did cut back on the dose of patient's long-acting morphine. Also dose of Neurontin cutback. Today-was agitated yesterday evening. Had to give 10 mg 1 dose of Zyprexa.patient does not like hospital food has been refusing the same. Congestive chest. Review of systems: Was done for constitutional, cardiovascular, GI, pulmonary. relevant finding as above Active Medications Al Hydroxide/Mg Hydroxide (Mag Hydrox/Al Hydrox/Simeth 30 Ml Cup) 30 ml PO Q4H PRN PRN Reason: Constipation Albuterol/Ipratropium (Ipratropium-Albuterol 3 Ml Neb) 3 ml INHALATION RT-Q4H PRN PRN Reason: shortness of breath Last Admin: 12/20/19 11:36 Dose: 3 ml Documented by: Amlodipine Besylate (Amlodipine 5 Mg Tab) 5 mg PO DAILY@0900 [facility] Last Admin: 12/20/19 09:31 Dose: 5 mg Documented by: Cyclobenzaprine HCl (Cyclobenzaprine 5 Mg Tab) 5 mg PO TID@0600,1400,2200 [facility] Last Admin: 12/20/19 06:51 Dose: 5 mg Documented by: Enoxaparin Sodium (Enoxaparin 100 Mg/Ml Syringe) 100 mg SQ Q12HR [facility] Last Admin: 12/20/19 09:32 Dose: 100 mg Documented by: Famotidine (Famotidine 20 Mg Tab) 20 mg PO DAILY [facility] Last Admin: 12/20/19 09:31 Dose: 20 mg Documented by: Fenofibrate (Fenofibrate 160 Mg Tab) 160 mg PO DAILY@0900 [facility] Last Admin: 12/20/19 09:31 Dose: 160 mg Documented by: Ferrous Sulfate (Ferrous Sulfate 325 Mg Tab) 325 mg PO BID@0800,2100 [facility] Last Admin: 12/20/19 09:32 Dose: 325 mg Documented by: Fluconazole (Fluconazole 100 Mg Tab) 100 mg PO DAILY [facility] Gabapentin (Gabapentin 100 Mg Cap) 100 mg PO TID [facility] Last Admin: 12/20/19 09:31 Dose: 100 mg Documented by: Daptomycin 600 mg/ Sodium (Chloride) 50 mls @ 100 mls/hr IVPB Q24HR [facility]; Protocol Last Admin: 12/20/19 09:32 Dose: 100 mls/hr Documented by: Piperacillin Sod/Tazobactam (Sod 3.375 gm/ Sodium Chloride) 100 mls @ 25 mls/hr IVPB Q8HR [facility] Last Admin: 12/20/19 09:33 Dose: 25 mls/hr Documented by: Dextrose/Sodium Chloride (Dextrose 5%-Ns Iv Soln) 1,000 mls @ 20 mls/hr IV .Q24H [facility] Last Admin: 12/19/19 22:13 Dose: 20 mls/hr Documented by: Insulin Aspart (Insulin Aspart (Novolog) 100 Unit/Ml Vial) 0 unit SQ ACHS [facility]; Protocol Last Admin: 12/20/19 11:59 Dose: 3 unit Documented by: Lamotrigine (Lamotrigine 100 Mg Tab) 200 mg PO BID@0900,2100 [facility] Last Admin: 12/20/19 09:32 Dose: 200 mg Documented by: Magnesium Hydroxide (Magnesium Hydroxide 2,400 Mg/10 Ml Cup) 2,400 mg PO DAILY PRN PRN Reason: Constipation Last Admin: 12/11/19 21:39 Dose: 2,400 mg Documented by: Metoprolol Tartrate (Metoprolol Tartrate 25 Mg Tab) 25 mg PO BID@0900,2100 [facility] Last Admin: 12/20/19 09:32 Dose: 25 mg Documented by: Miscellaneous Information (Pneumonia Protocol Utilized 1 Each [facility] [place]) 1 each PO ONCE PRN PRN Reason: Per Protocol Miscellaneous Information (Potassium Replacement Protocol 1 Each [facility] [place]) 1 each MISCELLANE DAILY PRN; Protocol PRN Reason: Per Protocol Ondansetron HCl (Ondansetron 4 Mg Tab) 4 mg PO Q8HR PRN PRN Reason: Nausea And Vomiting Last Admin: 12/11/19 20:14 Dose: 4 mg Documented by: Oxycodone HCl (Oxycodone Er 15 Mg Tab.Er.12h) 15 mg PO Q12HR [facility] Last Admin: 12/20/19 09:29 Dose: 15 mg Documented by: Quetiapine Fumarate (Quetiapine 100 Mg Tab) [address] [facility] Last Admin: 12/19/19 21:07 Dose: 100 mg Documented by: Senna/Docusate Sodium (Sennosides-Docusate Sodium 1 Each Tab) 4 each PO DAILY@0900 [facility] Last Admin: 12/20/19 09:31 Dose: 4 each Documented by: Tamsulosin HCl (Tamsulosin 0.4 Mg Cap.Er.24h) 0.4 mg PO HS@2100 [facility] Last Admin: 12/19/19 21:08 Dose: 0.4 mg Documented by: Trazodone HCl (Trazodone Hcl 100 Mg Tab) 100 mg PO HS@2100 [facility] Last Admin: 12/19/19 20:58 Dose: 100 mg Documented by: Physical examination: VITAL SIGNS: 98.2, 114, 20, 146/78, 94% on high flow GENERAL: laying in bed, awake HEENT: Very dry parched mucous membranes with white deposits EYES: Pupils equal. Conjunctiva normal. NECK: .Cervical collar HEART: First and second heart sounds are normal; no edema. LUNGS: Respiratory rate normal, diminished breath sounds ABDOMEN: Soft, no tenderness,, no guarding rigidity, liver spleen not palpable, no masses palpable. PSYCH: Able to answer questions, anxious NEUROLOGICAL: Cranial nerves grossly intact, moving all 4 limbs INVESTIGATIONS, reviewed in the clinical context: Potassium 3.8 creatinine 2.18 pro-calcitonin 0.75 Previous testing: White count 14.7 hemoglobin 8.5 platelets 328 potassium 4.2 bun 26 creatinine 1.56 Accu-Cheks 102, 78, 66 Troponin I 1.6, 2.7, 1.7 proBNP 1200 EKG tracing personally reviewed by me-normal sinus rhythm Chest x-ray film personally reviewed by me-pulmonary edema, can rule out infiltrate 2-D echocardiogram-EF 60-65% Previous testing: Creatinine 1.0 Assessment: -Acute non-Q wave myocardial infarction-to be managed conservatively -Possible pneumonia, suspect gram-negative organism -Acute congestive heart failure from diastolic dysfunction EF 60 have a 65%- improved - October 10-C6 C7 T1 removal of bone fragments from fracture of C7, decompression fusion and plating-4 C7 fracture, cervical spine stenosis , myelopathy disc herniation: Now presented with trauma with Computed tomography scan of the spine showing dislocation of anterior cervical fusionand C7 increased kyphosis at C6-C7; fracture of the left C6 lamina-status post replacement and repair. -History of C7 epidural abscess that was cleaned. Cultures positive for Staphylococcus epidermidis. From previous admission -Diabetes mellitus type 2, uncontrolled with , hypoglycemia better -Acute metabolic encephalopathy could be from medications in the setting of acute kidney injury especially with decreased oral intake-improved from cutting back on the dose of long-acting morphine. -GERD -Essential hypertension -Obstructive sleep apnea uses a BiPAP machine -Bipolar disorder -Chronic low back pain -Obesity BMI 30.6 -COPD in a current smoker -chronic pancreatitis. -Acute kidney injury could be from vancomycin, also prerenal from decreased oral intake- -Oral candidiasis Plan: we'll start the patient on Diflucan. Oral intake encouraged. Repeat labs in the morning. Antibiotics per Dr. Grubered. Patient does appear to be prerenal.
[2019-12-20 16:55] LABS: Glucose,Whole Blood 196 mg/dL (75-99)
[2019-12-20 20:12] LABS: Glucose,Whole Blood 309 mg/dL (75-99)
[2019-12-20] MEDS: TAMSULOSIN 0.4 MG CAP.ER.24H PO SCH (20:15)
[2019-12-20] MEDS: traZODone HCL 100 MG TAB PO SCH (20:15)
[2019-12-20] MEDS: QUEtiapine 100 MG TAB PO SCH (20:16)
[2019-12-20] MEDS: QUEtiapine 200 MG TAB PO SCH (20:28)
[2019-12-20] MEDS: ZIPRASIDONE 20 MG VIAL IM STA ×2 (20:42→20:54)
[2019-12-21] MEDS: DEXTROSE 5%-0.9% NACL 1,000 ML IV SCH (00:05)
[2019-12-21] MEDS: PIPERACILLIN-TAZOBACTAM 3.375 GM in SODIUM CHLORIDE 0.9% 100 ML IVPB SCH ×4 (00:06→23:37)
[2019-12-21] MEDS: POTASSIUM CHLORIDE 10 MEQ in WATER FOR INJECTION 1 100ML.BAG IVPB SCH ×4 (01:40→05:28)
--- NOTE | 2019-12-21 01:53 | PN ---
PROGRESS NOTE DATE OF SERVICE: 12/20/2019 REASON FOR FOLLOW UP: 1. C7 paraspinal abscess. 2. Pneumonia. INTERVAL HISTORY: The patient is currently afebrile. The patient is breathing slightly comfortably today. Denies having any chest pain or shortness of breath or cough. No abdominal pain or diarrhea. PHYSICAL EXAMINATION: Blood pressure 128/73 with a pulse of 110, temperature of 98. He is 96% on high- flow oxygen. General description is a middle-aged male lying in bed in no distress. RESPIRATORY SYSTEM: Unlabored breathing, decreased breath sounds at bases. No wheeze. HEART: S1, S2. Regular rate and rhythm. ABDOMEN: Soft, no tenderness. LABS: BUN of 40, creatinine is 2.61. DIAGNOSTIC IMPRESSION AND PLAN: 1. Patient with C7 paraspinal abscess, status post debridement and removal of the hardware. Culture positive Staph epi and admitted to the hospital with acute kidney injury. The patient is covered with daptomycin to continue for another 2 weeks. 2. Patient with worsening respiratory status, possible fluid overload and possible component of pneumonia, covered with Zosyn. Try to obtain a sputum to narrow down on antibiotics. Continue supportive care. MMODL / IJN: [id number] / BULMARO
[2019-12-21 06:15] LABS: Glucose,Whole Blood 202 mg/dL (75-99)
[2019-12-21] MEDS: INSULIN ASPART (NovoLOG) 100 UNIT/ML VIAL SQ SCH ×4 (06:52→20:48)
[2019-12-21] MEDS: QUEtiapine 50 MG TAB PO SCH (07:51)
[2019-12-21] MEDS: ENOXAPARIN 100 MG/ML SYRINGE SQ SCH ×2 (07:51→19:59)
[2019-12-21] MEDS: oxyCODONE ER 15 MG TAB.ER.12H PO SCH ×2 (07:51→19:59)
[2019-12-21] MEDS: FAMOTIDINE 20 MG TAB PO SCH (07:52)
[2019-12-21] MEDS: METOPROLOL TARTRATE 25 MG TAB PO SCH ×2 (07:52→20:02)
[2019-12-21] MEDS: FENOFIBRATE 160 MG TAB PO SCH (07:52)
[2019-12-21] MEDS: lamoTRIgine 100 MG TAB PO SCH ×2 (07:52→20:02)
[2019-12-21] MEDS: GABAPENTIN 100 MG CAP PO SCH ×2 (07:52→16:53)
[2019-12-21] MEDS: CYCLOBENZAPRINE 5 MG TAB PO SCH ×3 (07:52→20:47)
[2019-12-21] MEDS: FLUCONAZOLE 100 MG TAB PO SCH (07:53)
[2019-12-21] MEDS: FERROUS SULFATE 325 MG TAB PO SCH ×2 (07:53→19:59)
[2019-12-21] MEDS: amLODIPine 5 MG TAB PO SCH (07:53)
[2019-12-21] MEDS: SENNOSIDES-DOCUSATE SODIUM 1 EACH TAB PO SCH (07:56)
[2019-12-21] MEDS: IPRATROPIUM-ALBUTEROL 3 ML NEB INHALATION PRN ×2 (08:12→12:06)
[2019-12-21 08:14] LABS: Albumin 3.1 g/dL (3.5-5.0); Calcium 10.1 mg/dL (8.4-10.2); Potassium 3.6 mmol/L (3.5-5.1); Total Protein 6.3 g/dL (6.3-8.2)
--- NOTE | 2019-12-21 10:33 | P.PN ---
Subjective Patient is seen in follow-up for acute kidney injury. Creatinine 2.93 today. He did receive 80 mg IV Lasix yesterday. No edema. Has been voiding. Calcium level stable. Denies vomiting or diarrhea. Vital signs are stable. General: The patient appeared well nourished and normally developed. HEENT: Head exam is unremarkable. Neck is without jugular venous distension. LUNGS: Lungs are clear to auscultation and percussion. Breath sounds decreased. HEART: Rate and Rhythm are regular. ABDOMEN: Soft, nontender. EXTREMITITES: No edema. Objective - Vital Signs Vital signs: Vital Signs Temp 97.6 F 12/21/19 07:48 Pulse 110 H 12/21/19 08:20 Resp 18 12/21/19 08:00 BP 122/69 12/21/19 07:48 Pulse Ox 92 L 12/21/19 07:48 Intake & Output 12/20/19 12/21/19 12/21/19 18:59 06:59 18:59 Intake Total 676 440 0 Output Total 0 225 Balance 676 440 -225 Weight 95.6 kg Intake: IV 50 DAPTOmycin 600 mg In 50 Sodium Chloride 0.9% 50 ml @ 100 mls/hr IVPB Q24HR [facility] Rx#:[id number] Intake, IV Titration 400 440 Amount Dextrose 5%-0.9% NaCl 1, 200 140 000 ml @ 20 mls/hr IV . Q24H [facility] Rx#:[id number] Piperacillin-Tazobactam 3 200 100 .375 gm In Sodium Chloride 0.9% 100 ml @ 25 mls/hr IVPB Q8HR [facility] Rx# :[id number] Potassium Chloride 10 meq 200 In Water For Injection 1 100ml.bag @ 100 mls/hr IVPB Q1HR [facility] Rx#: [id number] Oral 0 Tube Feeding 225 Other 1 Output: Urine 225 Stool 0 Other: Voiding Method Urinal # Voids 4 - Labs CBC & Chem 7: 12/17/19 07:52 12/21/19 07:37 Labs: Abnormal Lab Results - Last 24 Hours (Table) 12/20/19 12/20/19 12/20/19 Range/Units 11:47 16:53 20:10 Chloride (98-107) mmol/L Carbon Dioxide (22-30) mmol/L BUN (9-20) mg/dL Creatinine (0.66-1.25) mg/dL Glucose (74-99) mg/dL POC Glucose (mg/dL) 183 H 196 H 309 H (75-99) mg/dL AST (17-59) U/L Alkaline Phosphatase (38-126) U/L Albumin (3.5-5.0) g/dL 12/21/19 12/21/19 Range/Units 06:14 07:37 Chloride 93 L (98-107) mmol/L Carbon Dioxide 36 H (22-30) mmol/L BUN 42 H (9-20) mg/dL Creatinine 2.93 H (0.66-1.25) mg/dL Glucose 169 H (74-99) mg/dL POC Glucose (mg/dL) 202 H (75-99) mg/dL AST 87 H (17-59) U/L Alkaline Phosphatase 154 H (38-126) U/L Albumin 3.1 L (3.5-5.0) g/dL Assessment and Plan Plan: Assessment: 1. Acute kidney injury secondary to ATN secondary to hypercalcemia and vancomycin. Creatinine 2.9 today. Baseline creatinine near 1. UA benign. No hydronephrosis noted on kidney ultrasound. 2. Hypercalcemia, non-parathyroid mediated. Workup negative so far. PTH related peptide pending. 3. Status post spine surgery with removal of hardware. Maintained on antibiotics. 4. Benign hypertension. Controlled. 5. Diabetes mellitus. 6. Iron deficiency anemia. Plan: Hold diuretics today. Follow-up PTH related peptide. Encouraged oral intake. IV iron 3 doses. First dose today. Normal saline at 50 mL an hour 6 hours.
[2019-12-21] MEDS ORDERED: SODIUM CHLORIDE 0.9% 1,000 ML IV SCH (10:45)
[2019-12-21 11:44] LABS: Glucose,Whole Blood 190 mg/dL (75-99)
[2019-12-21] MEDS: SODIUM FERRIC GLUCONAT-SUCROSE 125 MG in SODIUM CHLORIDE 0.9% 100 ML IVPB SCH (12:23)
--- NOTE | 2019-12-21 14:06 | PN ---
PROGRESS NOTE DATE OF SERVICE: 12/21/2019. REASON FOR FOLLOWUP: 1. C7 paraspinal spinal. 2. Possible pneumonia. INTERVAL HISTORY: The patient is currently afebrile, patient is breathing comfortably. Pain seems to be slightly lethargic on high-flow oxygen. No vomiting or diarrhea has been reported or Any other changes in his clinical condition. He was unable to provide a reliable history. PHYSICAL EXAMINATION: Blood pressure 150/62 with a pulse of 100, temperature 98.1, he is 94% on 10 L high- flow oxygen. General description is a middle-aged male, up in the chair in no distress. RESPIRATORY SYSTEM: Unlabored breathing, decreased breath sounds at the base, no wheeze. HEART: S1, S2. Regular rate and rhythm. ABDOMEN: Soft, no tenderness. LABS: BUN of 22, creatinine is 2.93. DIAGNOSTIC IMPRESSION AND PLAN: 1. Patient with known paraspinal abscess, status post drainage, culture with Staph epi. Currently on daptomycin to continue another week on discharge. 2. Worsening respiratory status multifactorial with a question of pneumonia patient is covered with Zosyn with worsening renal function. Discussed with the admitting physician. Continue supportive care. MMODL / IJN: [id number] / BULMARO
--- NOTE | 2019-12-21 16:16 | P.PN ---
Subjective Progress Note Date: 12/21/19 Principal diagnosis: Hypoxemia, shortness of breath, altered mentation 54-year-old white male patient of Dr. Wood with past medical history of hypertension, diabetes mellitus, obstructive sleep apnea on BiPAP, chronic back pain, chronic smoker, history of anxiety, depression, who was recently hospitalized from 10/30/2019 through 11/11/2019 when he came in for evaluation of severe shoulder pain after she sustained a fall at home a few weeks following his cervical spine surgery on 10/11/2019 for traumatic T7 burst fracture. Computed tomography scan of the cervical spine revealed traumatic displacement of anterior cervical internal fixation from C6 to T1, and on 10/31/2019 patient underwent anterior cervical decompression and fusion of C6 through T1 extending up to C5 with revision corpectomy C7 with short cage extending from C6 through T1 and posterior cervical fusion of C5 through T2. Patient had an episode of chest pain during the last admission, was evaluated by cardiology, EKG and echocardiogram without significant findings, d-dimer was elevated, CTA chest was without evidence of pulmonary embolism. Patient was discharged to [facility]. Of note during his surgery. Patient was found to have a cervical epidural abscess positive for Staphylococcus epidermidis and he was discharged with a PICC line in place for vancomycin infusions for 6 weeks. On 12/09/2019 patient was brought into the emergency department for evaluation of a ltered mental status, and hypoxemia with O2 saturations of 88%, blood sugar was 66 patient was given half amp of glucose with improvement of his symptoms. His oral membranes are extremely dry, patient is unclear whether he has been eating or drinking well. He seems somewhat confused, he is currently on 5 L of oxygen, he has removed his oxygen, and he is desaturating into the low 80s, seems cindy rgic. Denies any fevers, denies any dyspnea. Chest x-ray showed patchy perihilar and basilar infiltrates with a concern for pneumonia. Brain CT showed no acute abnormality. EKG showed normal sinus rhythm. Labs showed a white blood cell count of 14.7, hemoglobin of 8.5, INR is 1.2, sodium is 134, potassium is 4.2, chloride is 97, CO2 31, BUN is 26, creatinine is 1.56, lactic acid 0.8, troponin is 1.650, proBNP is 1200, urinalysis without sign of infection. Current antibiotic coverage is in the form of azithromycin, Zosyn, and we resumed his vancomycin for recent cervical spine abscess. COVID 19 PCR was sent, pending at this time. Patient is afebrile, he is lethargic, but breathing is nonlabored, he is a poor historian, he is confused. On 12/10/2019 patient seen in follow-up on selective care unit, he is much more awake today, overnight she was the BiPAP with settings of 12/5 and FiO2 of 45%, he is currently on 4 L of oxygen, he sitting up on the edge of the bed, in some questions appropriately, denies any acute distress, his been afebrile overnight. He was started on IV Lasix, continues on antibiotics including vancomycin and Zosyn, no hemoptysis, no completed chest pain, echocardiogram is pending, patient was started on therapeutic doses of Lovenox, lung sounds are diminished, with crackles in the mid to bilateral lower lobes. His troponin is 2.73. Cardiology consultation is pending, coronavirus was negative On 12/11/2019 patient seen in follow-up on selective care unit, he is awake and alert, resting comfortably in bed, he is currently on 6 L of oxygen pulse ox 96%, vital signs stable, afebrile, breathing is nonlabored, no wheezing, no rhonchi, no significant cough or congestion. Much more awake on today's exam, his been wearing his BiPAP at night. Today's chest x-ray shows stable alveolar and interstitial edema, despite the diuretics. Afebrile, ID service is following, her cultures have shown no growth, current antibiotic coverage is in the form of daptomycin and Zosyn. His swallowing evaluation was within normal limits. On 12/14/2019 patient seen in follow-up on selective care units. He is awake and alert, in no acute distress, currently on 3 L of oxygen pulse ox 93%, his been wearing the BiPAP support at night, his been afebrile, vital signs have been stable, breathing is nonlabored, he is receiving IV hydration with 0.9 normal seen a rate of 75 ML per hour, his mucous membranes are extremely dry, patient is asking for some water. Denies any chest pain, denies any hemoptysis, no significant cough or congestion, last chest x-ray from yesterday showed persistent prominence of pulmonary interstitium, and a right infrahilar infiltra te which seems to be improving in appearance, and small pleural effusions. Renal profile slightly improved on today's labs, although still significantly elevated, with BUN of 34 and creatinine of 2.67, white blood cell count is 10.6, hemoglobin is 8.7, sodium is 137, potassium 3.3, CO2 is 40, chloride is 92, yesterday's follow-up pro-calcitonin came back elevated to 0.74 from the initial is 0.30 on 12/10/2019 however patient's renal profile also doubled from his last pro-calcitonin which could also explain increase in his pro-calcitonin level. His blood culture has shown no growth. Patient continues on daptomycin and Zosyn for antibiotic coverage On 12/15/2019 patient seen in follow-up on selective care unit, he is currently on BiPAP, he is having a renal ultrasound done at the bedside, renal profile continues to slightly improve every day, he remains on IV fluids at 75 ML per hour, he is on Zosyn for empiric antibiotic coverage. His BiPAP settings of 12/5 and FiO2 of 45%, today's labs show BUN of 33, and creatinine of 2.48, patient is awake, he is responding appropriately on BiPAP support, today's chest x-ray has been reviewed showing progressive perihilar and basilar infiltrates with pleural effusions, had no fever or chills, no compressive chest pain, no phlegm production. On 12/21/2019 patient seen in follow-up on selective care unit, he sitting up in the recliner, seems confused, seems sedated, physical therapy is in the room, try to work with the patient. Patient is operative suite with therapy very well, lung sounds are coarse, with some scattered crackles. He still on 10 L of oxygen, his pulse ox 94%, his been afebrile. His last chest x-ray from yesterday showed continued diffuse interstitial and patchy airspace opacities and small right pleural effusion. ID service is following, and patient continues on daptomycin, fluconazole and Zosyn for recent paraspinal abscess, and possibility of aspiration pneumonia. His blood cultures show no growth. He continues to require large amounts of oxygen, he he is on BiPAP at bedtime. Yesterday she received 80 mg of IV Lasix, nephrology is following, today's creatinine is 2.93. No vomiting, no diarrhea. Objective - Vital Signs Vital signs: Vital Signs Temp 98.1 F 12/21/19 12:00 Pulse 100 12/21/19 12:21 Resp 18 12/21/19 15:33 BP 116/62 12/21/19 12:00 Pulse Ox 94 L 12/21/19 12:00 Intake & Output 12/20/19 12/21/19 12/21/19 18:59 06:59 18:59 Intake Total 676 440 240 Output Total 0 625 Balance 676 440 -385 Weight 95.6 kg Intake: IV 50 DAPTOmycin 600 mg In 50 Sodium Chloride 0.9% 50 ml @ 100 mls/hr IVPB Q24HR [facility] Rx#:[id number] Intake, IV Titration 400 440 Amount Dextrose 5%-0.9% NaCl 1, 200 140 000 ml @ 20 mls/hr IV . Q24H [facility] Rx#:[id number] Piperacillin-Tazobactam 3 200 100 .375 gm In Sodium Chloride 0.9% 100 ml @ 25 mls/hr IVPB Q8HR [facility] Rx# :[id number] Potassium Chloride 10 meq 200 In Water For Injection 1 100ml.bag @ 100 mls/hr IVPB Q1HR [facility] Rx#: [id number] Oral 240 Tube Feeding 225 Other 1 Output: Urine 625 Stool 0 Other: Voiding Method Urinal # Voids 4 1 - Exam GENERAL EXAM: Very lethargic, very confused 54-year-old white male, currently o n 10 L of oxygen the pulse ox of 94%, wears BiPAP at bedtime was pressures of 12 and 5 and FiO2 of 45% HEAD: Normocephalic/atraumatic. EYES: Normal reaction of pupils, equal size. Conjunctiva pink, sclera white. NOSE: Clear with pink turbinates. THROAT: No erythema or exudates. NECK: No masses, no JVD, no thyroid enlargement, no adenopathy. Posterior neck incision is clean dry and intact. Patient has a neck collar in place CHEST: No chest wall deformity. Symmetrical expansion. LUNGS: Equal air entry with coarse crackles at bilateral lower and mid lungs CVS: Regular rate and rhythm, normal S1 and S2, no gallops, no murmurs, no rubs ABDOMEN: Soft, nontender. No hepatosplenomegaly, normal bowel sounds, no guarding or rigidity. EXTREMITIES: No clubbing, no edema, no cyanosis, 2+ pulses and upper and lower extremities. MUSCULOSKELETAL: Muscle strength and tone normal. SPINE: No scoliosis or deformity SKIN: No rashes CENTRAL NERVOUS SYSTEM: Lethargic, confused, seems sedated No focal deficits, tone is normal in all 4 extremities. - Labs CBC & Chem 7: 12/17/19 07:52 12/21/19 07:37 Labs: Abnormal Lab Results - Last 24 Hours (Table) 12/20/19 12/20/19 12/21/19 Range/Units 16:53 20:10 06:14 Chloride (98-107) mmol/L Carbon Dioxide (22-30) mmol/L BUN (9-20) mg/dL Creatinine (0.66-1.25) mg/dL Glucose (74-99) mg/dL POC Glucose (mg/dL) 196 H 309 H 202 H (75-99) mg/dL AST (17-59) U/L Alkaline Phosphatase (38-126) U/L Albumin (3.5-5.0) g/dL 12/21/19 12/21/19 Range/Units 07:37 11:41 Chloride 93 L (98-107) mmol/L Carbon Dioxide 36 H (22-30) mmol/L BUN 42 H (9-20) mg/dL Creatinine 2.93 H (0.66-1.25) mg/dL Glucose 169 H (74-99) mg/dL POC Glucose (mg/dL) 190 H (75-99) mg/dL AST 87 H (17-59) U/L Alkaline Phosphatase 154 H (38-126) U/L Albumin 3.1 L (3.5-5.0) g/dL Assessment and Plan Plan: Assessment: #1. Acute on chronic hypoxic respiratory failure related to possibility of pneumonia, chest x-ray showed patchy perihilar and basilar infiltrates, rule out possibility of aspiration, remains on daptomycin and Zosyn #2. Altered mental status likely related to metabolic encephalopathy, in addition to sedatives and narcotics #3. Elevated troponin, EKG without significant findings, recent echocardiogram showed preserved EF of 55-60%, no significant valvular disease, PA pressure of 26.3 mmHg. Cardiology consultations pending #4. Recent hospitalization for cervical spine epidural abscess of anterior cervical C7, and patient was discharged to [facility] on the vancomycin infusions for 6 weeks and which he continues #5. History of cervical myelopathy is status post surgical revision of C6 through T1 and corpectomy of C7 due to trauma, following a fall. Patient had open reduction and internal fixation carpectomy of C7 and fusion of C6 to T1 for recent C7 burst fracture on 10/11/2019 #6. Acute kidney injury, worsening related to diuretic therapy #7. Obstructive sleep apnea on BiPAP therapy at home #8. Chronic smoker, unknown whether the patient is still smoking #9. Suspect underlying history of COPD #10. Diabetes mellitus type 2 #11. Hypertension #12. History of pancreatitis #13. History of anxiety, depression Plan: Patient seems to be very sedated, he is confused, recommend adjusting his sedati ves and narcotics, as the patient continues to be oversedated, and remains at risk for aspiration, poor oxygenation, fall risk. May need pain service consultation her psychiatric service consultation for adjustment of his narcotics and antipsychotics. ID service recommendations for antibiotics, ma intain aspiration precautions, maintain safety precautions. We'll continue to follow I performed a history & physical examination of the patient and discussed their management with my nurse practitioner, Aurelia Arenas. I reviewed the nurse practitioner's note and agree with the documented findings and plan of care. Lung sounds are positive for crackles at bilateral bases The findings and the impression was discussed with the patient. I attest to the documentation by the nurse practitioner. Time with Patient: Less than 30
[2019-12-21 16:40] LABS: Glucose,Whole Blood 255 mg/dL (75-99)
--- NOTE | 2019-12-21 16:42 | P.PN ---
Progress Note - Text Progress Note Date: 12/21/19 Chief Complaint: Tired History of presenting complaint: This is a 54-year-old patient who follows with Dr. thomas from [place]. Chronic stable medical conditions include diabetes mellitus type II on insulin pump.,GERD, hypertension, obstructive sleep apnea uses CPAP, chronic pancreatitis, bipolar disorder and chronic low back pain. 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 underwent cervical spine surgery by Dr. Shanks-on October 10 2019. Patient is here in November-took a fall with displacement of the internal fixation and graft at C6 to T1. Patient underwent surgery in October 30. With removal of hardware and revision fixation At multiple levels. Local abscess was cleaned out. Cultures growing Staphylococcus epidermidis. Has a cervical collar since then. Patient is brought in from the EMS from the rehab. Patient is found to be bit confused. Had oxygen saturation 88% and a blood glucose down to 66. In the ER he reported feeling weak and tired. Not sure about his oral intake. No fever reported. Admitted with acute non-Q-wave NH, acute congestive heart failure exacerbation, possible pneumonia. Put on IV Lasix. Therapeutic Lovenox dose. Patient remained rather lethargic tired sleepy. Creatinine was going up. I did cut back on the dose of patient's long-acting morphine. Also dose of Neurontin cutback. Also treated for oral candidiasis. Today- for last 2 nights did get a bit agitated. Requiring Geodon. His creatinine has been going up. Patient is very picky about the hospital food. Urinary retention. Review of systems: Was done for constitutional, cardiovascular, GI, pulmonary. relevant finding as above Active Medications Al Hydroxide/Mg Hydroxide (Mag Hydrox/Al Hydrox/Simeth 30 Ml Cup) 30 ml PO Q4H PRN PRN Reason: Constipation Albuterol/Ipratropium (Ipratropium-Albuterol 3 Ml Neb) 3 ml INHALATION RT-Q4H PRN PRN Reason: shortness of breath Last Admin: 12/21/19 12:06 Dose: 3 ml Documented by: Amlodipine Besylate (Amlodipine 5 Mg Tab) 5 mg PO DAILY@0900 [facility] Last Admin: 12/21/19 07:53 Dose: 5 mg Documented by: Cyclobenzaprine HCl (Cyclobenzaprine 5 Mg Tab) 5 mg PO TID@0600,1400,2200 [facility] Last Admin: 12/21/19 07:52 Dose: 5 mg Documented by: Enoxaparin Sodium (Enoxaparin 100 Mg/Ml Syringe) 100 mg SQ Q12HR [facility] Last Admin: 12/21/19 07:51 Dose: 100 mg Documented by: Famotidine (Famotidine 20 Mg Tab) 20 mg PO DAILY [facility] Last Admin: 12/21/19 07:52 Dose: 20 mg Documented by: Fenofibrate (Fenofibrate 160 Mg Tab) 160 mg PO DAILY@0900 [facility] Last Admin: 12/21/19 07:52 Dose: 160 mg Documented by: Ferrous Sulfate (Ferrous Sulfate 325 Mg Tab) 325 mg PO BID@0800,2100 [facility] Last Admin: 12/21/19 07:53 Dose: 325 mg Documented by: Fluconazole (Fluconazole 100 Mg Tab) 100 mg PO DAILY [facility] Last Admin: 12/21/19 07:53 Dose: 100 mg Documented by: Gabapentin (Gabapentin 100 Mg Cap) 100 mg PO TID [facility] Last Admin: 12/21/19 07:52 Dose: 100 mg Documented by: Daptomycin 600 mg/ Sodium (Chloride) 50 mls @ 100 mls/hr IVPB Q24HR [facility]; Protocol Last Admin: 12/21/19 08:56 Dose: 100 mls/hr Documented by: Piperacillin Sod/Tazobactam (Sod 3.375 gm/ Sodium Chloride) 100 mls @ 25 mls/hr IVPB Q8HR [facility] Last Admin: 12/21/19 07:51 Dose: 25 mls/hr Documented by: Dextrose/Sodium Chloride (Dextrose 5%-Ns Iv Soln) 1,000 mls @ 20 mls/hr IV .Q24H [facility] Last Admin: 12/21/19 00:05 Dose: 20 mls/hr Documented by: Ferric Sodium Gluconate 125 mg (/ Sodium Chloride) 110 mls @ 100 mls/hr IVPB DAILY [facility] Stop: 12/24/19 10:46 Last Admin: 12/21/19 12:23 Dose: 100 mls/hr Documented by: Sodium Chloride (Saline 0.9%) 1,000 mls @ 50 mls/hr IV .Q20H [facility] Stop: 12/21/19 16:46 Last Admin: 12/21/19 12:24 Dose: 50 mls/hr Documented by: Insulin Aspart (Insulin Aspart (Novolog) 100 Unit/Ml Vial) 0 unit SQ ACHS [facility]; Protocol Last Admin: 12/21/19 12:18 Dose: Not Given Documented by: Lamotrigine (Lamotrigine 100 Mg Tab) 200 mg PO BID@0900,2100 [facility] Last Admin: 12/21/19 07:52 Dose: 200 mg Documented by: Magnesium Hydroxide (Magnesium Hydroxide 2,400 Mg/10 Ml Cup) 2,400 mg PO DAILY PRN PRN Reason: Constipation Last Admin: 12/11/19 21:39 Dose: 2,400 mg Documented by: Metoprolol Tartrate (Metoprolol Tartrate 25 Mg Tab) 25 mg PO BID@0900,2099 [facility] Last Admin: 12/21/19 07:52 Dose: 25 mg Documented by: Miscellaneous Information (Pneumonia Protocol Utilized 1 Each Misc) 1 each PO ONCE PRN PRN Reason: Per Protocol Miscellaneous Information (Potassium Replacement Protocol 1 Each Misc) 1 each MISCELLANE DAILY PRN; Protocol PRN Reason: Per Protocol Ondansetron HCl (Ondansetron 4 Mg Tab) 4 mg PO Q8HR PRN PRN Reason: Nausea And Vomiting Last Admin: 12/11/19 20:14 Dose: 4 mg Documented by: Oxycodone HCl (Oxycodone Er 15 Mg Tab.Er.12h) 15 mg PO Q12HR [facility] Last Admin: 12/21/19 07:51 Dose: 15 mg Documented by: Quetiapine Fumarate (Quetiapine 200 Mg Tab) 200 mg PO HS [facility] Last Admin: 12/20/19 20:28 Dose: 200 mg Documented by: Quetiapine Fumarate (Quetiapine 50 Mg Tab) 50 mg PO DAILY [facility] Last Admin: 12/21/19 07:51 Dose: 50 mg Documented by: Senna/Docusate Sodium (Sennosides-Docusate Sodium 1 Each Tab) 4 each PO DAILY@0900 [facility] Last Admin: 12/21/19 07:56 Dose: Not Given Documented by: Tamsulosin HCl (Tamsulosin 0.4 Mg Cap.Er.24h) 0.4 mg PO HS@2100 [facility] Last Admin: 12/20/19 20:15 Dose: 0.4 mg Documented by: Trazodone HCl (Trazodone Hcl 100 Mg Tab) 100 mg PO HS@2100 [facility] Last Admin: 12/20/19 20:15 Dose: 100 mg Documented by: Physical examination: VITAL SIGNS: 98.1, 101, 18, 116/62, 94% on 10 L GENERAL: Sitting up in a chair, tired HEENT: Very dry parched mucous membranes with white deposits EYES: Pupils equal. Conjunctiva normal. NECK: .Cervical collar HEART: First and second heart sounds are normal; no edema. LUNGS: Respiratory rate normal, diminished breath sounds ABDOMEN: Soft, no tenderness,, no guarding rigidity, liver spleen not palpable, no masses palpable. PSYCH: Able to answer questions, anxious NEUROLOGICAL: Cranial nerves grossly intact, moving all 4 limbs INVESTIGATIONS, reviewed in the clinical context: Potassium 3.6 creatinine 2.93 bicarb 36 pro-calcitonin 0.75 Previous testing: White count 14.7 hemoglobin 8.5 platelets 328 potassium 4.2 bun 26 creatinine 1.56 Accu-Cheks 102, 78, 66 Troponin I 1.6, 2.7, 1.7 proBNP 1200 EKG tracing personally reviewed by me-normal sinus rhythm Chest x-ray film personally reviewed by me-pulmonary edema, can rule out infiltrate 2-D echocardiogram-EF 60-65% Previous testing: Creatinine 1.0 Assessment: -Acute non-Q wave myocardial infarction-to be managed conservatively -Possible pneumonia, suspect gram-negative organism -Acute congestive heart failure from diastolic dysfunction EF 60 have a 65%- improved - October 10-C6 C7 T1 removal of bone fragments from fracture of C7, decompression fusion and plating-4 C7 fracture, cervical spine stenosis , myelopathy disc herniation: Now presented with trauma with Computed tomography scan of the spine showing dislocation of anterior cervical fusionand C7 increased kyphosis at C6-C7; fracture of the left C6 lamina-status post replacement and repair. -History of C7 epidural abscess that was cleaned. Cultures positive for Staphylococcus epidermidis. From previous admission -Diabetes mellitus type 2, uncontrolled with , hypoglycemia better -Acute metabolic encephalopathy could be from medications in the setting of acute kidney injury especially with decreased oral intake-improved from cutting back on the dose of long-acting morphine. -GERD -Essential hypertension -Obstructive sleep apnea uses a BiPAP machine -Bipolar disorder -Chronic low back pain -Obesity BMI 30.6 -COPD in a current smoker -chronic pancreatitis. -Acute kidney injury could be from vancomycin, also prerenal from decreased oral intake-and getting IV Lasix. -Oral candidiasis -Acute urinary retention. Place Concepcion catheter. Plan: Lasix has been held. Discussed with Dr. Banks from nephrology. Gentle hydration. Concepcion catheter. Add Flomax
[2019-12-21] MEDS: traZODone HCL 100 MG TAB PO SCH (19:59)
[2019-12-21] MEDS: TAMSULOSIN 0.4 MG CAP.ER.24H PO SCH (20:02)
[2019-12-21] MEDS: GABAPENTIN 300 MG CAP PO SCH (20:02)
[2019-12-21 20:13] LABS: Glucose,Whole Blood 264 mg/dL (75-99)
[2019-12-21] MEDS: QUEtiapine 200 MG TAB PO SCH (20:48)
[2019-12-22] MEDS: DEXTROSE 5%-0.9% NACL 1,000 ML IV SCH (01:34)
[2019-12-22 06:06] LABS: Glucose,Whole Blood 194 mg/dL (75-99)
[2019-12-22] MEDS: CYCLOBENZAPRINE 5 MG TAB PO SCH (07:04)
[2019-12-22] MEDS: INSULIN ASPART (NovoLOG) 100 UNIT/ML VIAL SQ SCH ×4 (07:04→20:45)
[2019-12-22] MEDS: oxyCODONE ER 15 MG TAB.ER.12H PO SCH (08:18)
[2019-12-22] MEDS: PIPERACILLIN-TAZOBACTAM 3.375 GM in SODIUM CHLORIDE 0.9% 100 ML IVPB SCH ×2 (08:19→16:03)
[2019-12-22] MEDS: lamoTRIgine 100 MG TAB PO SCH ×2 (08:20→19:51)
[2019-12-22] MEDS: QUEtiapine 50 MG TAB PO SCH (08:20)
[2019-12-22] MEDS: SENNOSIDES-DOCUSATE SODIUM 1 EACH TAB PO SCH (08:20)
[2019-12-22] MEDS: FLUCONAZOLE 100 MG TAB PO SCH (08:21)
[2019-12-22] MEDS: FENOFIBRATE 160 MG TAB PO SCH (08:21)
[2019-12-22] MEDS: METOPROLOL TARTRATE 25 MG TAB PO SCH ×2 (08:21→19:51)
[2019-12-22] MEDS: ENOXAPARIN 100 MG/ML SYRINGE SQ SCH ×2 (08:21→19:52)
[2019-12-22] MEDS: amLODIPine 5 MG TAB PO SCH (08:21)
[2019-12-22] MEDS: FERROUS SULFATE 325 MG TAB PO SCH ×2 (08:21→19:51)
[2019-12-22] MEDS: FAMOTIDINE 20 MG TAB PO SCH (08:21)
[2019-12-22] MEDS: IPRATROPIUM-ALBUTEROL 3 ML NEB INHALATION PRN ×2 (08:41→15:47)
[2019-12-22 08:44] LABS: Albumin 2.9 g/dL (3.5-5.0); Calcium 9.5 mg/dL (8.4-10.2); Magnesium 1.9 mg/dL (1.6-2.3); Potassium 3.5 mmol/L (3.5-5.1)
[2019-12-22] MEDS: SODIUM FERRIC GLUCONAT-SUCROSE 125 MG in SODIUM CHLORIDE 0.9% 100 ML IVPB SCH (09:51)
[2019-12-22] MEDS ORDERED: POTASSIUM CHLORIDE ER 20 MEQ TAB.ER PO STA (09:55)
--- NOTE | 2019-12-22 10:10 | P.PN ---
Subjective Patient is seen in follow-up for acute kidney injury. Creatinine 3.13 today. No edema. Has been voiding. Calcium level improved. Denies vomiting or diarrhea. Oral intake fair. Vital signs are stable. General: The patient appeared well nourished and normally developed. HEENT: Head exam is unremarkable. Neck is without jugular venous distension. LUNGS: Lungs are clear to auscultation and percussion. Breath sounds decreased. HEART: Rate and Rhythm are regular. ABDOMEN: Soft, nontender. EXTREMITITES: No edema. Objective - Vital Signs Vital signs: Vital Signs Temp 97.1 F L 12/22/19 08:00 Pulse 100 12/22/19 08:53 Resp 18 12/22/19 08:00 BP 129/76 12/22/19 08:00 Pulse Ox 93 L 12/22/19 08:00 Intake & Output 12/21/19 12/22/19 12/22/19 18:59 06:59 18:59 Intake Total 340 0 Output Total 625 380 525 Balance -285 -380 -525 Weight 95.8 kg Intake: Oral 340 0 Output: Urine 625 380 525 Other: # Voids 1 1 - Labs CBC & Chem 7: 12/17/19 07:52 12/22/19 07:49 Labs: Abnormal Lab Results - Last 24 Hours (Table) 12/21/19 12/21/19 12/21/19 Range/Units 11:41 16:38 20:11 Chloride (98-107) mmol/L Carbon Dioxide (22-30) mmol/L BUN (9-20) mg/dL Creatinine (0.66-1.25) mg/dL Glucose (74-99) mg/dL POC Glucose (mg/dL) 190 H 255 H 264 H (75-99) mg/dL AST (17-59) U/L Alkaline Phosphatase (38-126) U/L Total Protein (6.3-8.2) g/dL Albumin (3.5-5.0) g/dL 12/22/19 12/22/19 Range/Units 06:04 07:49 Chloride 94 L (98-107) mmol/L Carbon Dioxide 35 H (22-30) mmol/L BUN 46 H (9-20) mg/dL Creatinine 3.13 H (0.66-1.25) mg/dL Glucose 175 H (74-99) mg/dL POC Glucose (mg/dL) 194 H (75-99) mg/dL AST 104 H (17-59) U/L Alkaline Phosphatase 162 H (38-126) U/L Total Protein 6.0 L (6.3-8.2) g/dL Albumin 2.9 L (3.5-5.0) g/dL Assessment and Plan Plan: Assessment: 1. Acute kidney injury secondary to ATN secondary to hypercalcemia and vancomycin. Creatinine 3.13 today. Baseline creatinine near 1. UA benign. No hydronephrosis noted on kidney ultrasound. 2. Hypercalcemia, non-parathyroid mediated. Workup negative so far. PTH related peptide pending. Better. 3. Status post spine surgery with removal of hardware. Maintained on antibiotics. 4. Benign hypertension. Controlled. 5. Diabetes mellitus. 6. Iron deficiency anemia. Plan: Continue to hold diuretics. Follow-up PTH related peptide. Encouraged oral intake. IV iron 3 doses. Second dose today. Monitor bladder scan to rule out urinary retention. He did have an elevated postvoid residual yesterday. Replace potassium. 40 mEq today. Hold amlodipine for systolic blood pressure less than 120.
[2019-12-22 11:41] LABS: Glucose,Whole Blood 192 mg/dL (75-99)
--- NOTE | 2019-12-22 15:30 | PN ---
PROGRESS NOTE PULMONARY/CRITICAL CARE PROGRESS NOTE: DATE OF SERVICE: 12/22/2019 This is a 54-year-old gentleman who looks much older than his stated age. He was admitted with a diagnosis of possible underlying aspiration pneumonia, as well as hypoxic ischemic respiratory failure, and mental status changes. Currently, the patient is doing about the same. The patient is currently receiving supplemental oxygen. The patient could be potentially discharged in the near future. He remains on daptomycin and Zosyn as per ID. The patient does have a history of anxiety, pancreatitis, hypertension, diabetes, COPD, chronic tobacco use, sleep apnea syndrome, cervical myelopathy, acute kidney injury, and cervical spine epidural abscess. Current vital signs are reviewed. Temperature is 97.1, heart rate 95, respiratory rate 22, blood pressure is 127/66 mean 86 and 8 L saturation 93%. Appears in no acute respiratory distress. He is a belly breather. HEENT: Examination is grossly unremarkable. Nasal O2 noted. Neck is supple, full range of motion. No adenopathy or thyromegaly. CARDIOVASCULAR: Examination reveals regular rhythm and rate. Heart rate 95. S1, S2 normal. No S3, S4, or murmur. LUNGS: Reveal coarse bilateral rhonchi. No wheezes or crackles. Breath sounds equal. Abdomen is soft but obese. Bowel sounds are heard. EXTREMITIES: Intact. No edema. SKIN: Without rash. NEUROLOGIC: Examination is brief but nonfocal. LABS: Reviewed. Sodium 137, potassium 3.5, chloride 94, CO2 is 35, anion gap is 8. BUN and creatinine were 46 and 3.1 compared to 47 and 0.93 yesterday. Glucose is 175, ALT 104, AST 104, ALT 26, alk phosphatase 162, albumin 2.9. Pro calcium level is 125. The patient's COVID-19 test was negative. Microbiology is currently negative. No recent chest x-ray. The chest x-ray done from December 19 shows patchy airspace opacities. ASSESSMENT: 1. Acute on chronic hypoxemic respiratory failure, secondary to aspiration pneumonia, currently on daptomycin and Zosyn. 2. Mental status changes, likely related to metabolic encephalopathy and excess medications such as narcotic tranquilizers, etc. 3. Elevated troponin, Cardiology currently evaluating. 4. Recent hospitalization for cervical spine epidural abscess, status post 6 weeks of vancomycin. 5. History of cervical myelopathy, status post surgical revision of C6 through T1 and corpectomy of C7 due to trauma. 6. Acute kidney injury with worsening renal function. 7. Sleep apnea syndrome, currently on BiPAP at home. 8. Chronic tobacco use, rule out underlying COPD. 9. Diabetes mellitus. 10.Hypertension. 11.History of pancreatitis. 12.History of anxiety/depression. PLAN: Today we stopped a lot of the unnecessary medications which may be causing the patient to have mental status changes. He is very sleepy and unresponsive. Excessive medications were discontinued. Will continue to follow. Prognosis is guarded. We will receive a chest x-ray in the morning. MMODL / IJN: [id number] /
[2019-12-22 16:40] LABS: Glucose,Whole Blood 202 mg/dL (75-99)
[2019-12-22] MEDS: TAMSULOSIN 0.4 MG CAP.ER.24H PO SCH (19:50)
[2019-12-22] MEDS: GABAPENTIN 300 MG CAP PO SCH (19:52)
[2019-12-22 20:32] LABS: Glucose,Whole Blood 265 mg/dL (75-99)
--- NOTE | 2019-12-22 20:38 | P.PN ---
Progress Note - Text Progress Note Date: 12/22/19 Chief Complaint: Tired History of presenting complaint: This is a 54-year-old patient who follows with Dr. thomas from [place]. Chronic stable medical conditions include diabetes mellitus type II on insulin pump.,GERD, hypertension, obstructive sleep apnea uses CPAP, chronic pancreatitis, bipolar disorder and chronic low back pain. 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 underwent cervical spine surgery by Dr. Shanks-on October 10 2019. Patient is here in November-took a fall with displacement of the internal fixation and graft at C6 to T1. Patient underwent surgery in October 30. With removal of hardware and revision fixation At multiple levels. Local abscess was cleaned out. Cultures growing Staphylococcus epidermidis. Has a cervical collar since then. Patient is brought in from the EMS from the rehab. Patient is found to be bit confused. Had oxygen saturation 88% and a blood glucose down to 66. In the ER he reported feeling weak and tired. Not sure about his oral intake. No fever reported. Admitted with acute non-Q-wave PA, acute congestive heart failure exacerbation, possible pneumonia. Put on IV Lasix. Therapeutic Lovenox dose. Patient remained rather lethargic tired sleepy. Creatinine was going up. I did cut back on the dose of patient's long-acting morphine. Also dose of Neurontin cutback. Also treated for oral candidiasis. Patient gone into acute kidney injury possibly prerenal. Lasix discontinued. Gentle hydration. Today- Lasix continues to be held. Sitting up in a chair. Oral intake about 25% of his meals. Review of systems: Was done for constitutional, cardiovascular, GI, pulmonary. relevant finding as above Active Medications Al Hydroxide/Mg Hydroxide (Mag Hydrox/Al Hydrox/Simeth 30 Ml Cup) 30 ml PO Q4H PRN PRN Reason: Constipation Albuterol/Ipratropium (Ipratropium-Albuterol 3 Ml Neb) 3 ml INHALATION RT-Q4H PRN PRN Reason: shortness of breath Last Admin: 12/22/19 15:47 Dose: 3 ml Documented by: Amlodipine Besylate (Amlodipine 5 Mg Tab) 5 mg PO DAILY@0900 [facility] Last Admin: 12/22/19 08:21 Dose: 5 mg Documented by: Enoxaparin Sodium (Enoxaparin 100 Mg/Ml Syringe) 100 mg SQ Q12HR [facility] Last Admin: 12/22/19 19:52 Dose: 100 mg Documented by: Famotidine (Famotidine 20 Mg Tab) 20 mg PO DAILY [facility] Last Admin: 12/22/19 08:21 Dose: 20 mg Documented by: Fenofibrate (Fenofibrate 160 Mg Tab) 160 mg PO DAILY@0900 [facility] Last Admin: 12/22/19 08:21 Dose: 160 mg Documented by: Ferrous Sulfate (Ferrous Sulfate 325 Mg Tab) 325 mg PO BID@0800,2100 [facility] Last Admin: 12/22/19 19:51 Dose: 325 mg Documented by: Fluconazole (Fluconazole 100 Mg Tab) 100 mg PO DAILY [facility] Last Admin: 12/22/19 08:21 Dose: 100 mg Documented by: Gabapentin (Gabapentin 300 Mg Cap) 300 mg PO HS [facility] Last Admin: 12/22/19 19:52 Dose: 300 mg Documented by: Daptomycin 600 mg/ Sodium (Chloride) 50 mls @ 100 mls/hr IVPB Q24HR [facility]; Protocol Last Admin: 12/22/19 08:19 Dose: 100 mls/hr Documented by: Piperacillin Sod/Tazobactam (Sod 3.375 gm/ Sodium Chloride) 100 mls @ 25 mls/hr IVPB Q8HR [facility] Last Admin: 12/22/19 16:03 Dose: 25 mls/hr Documented by: Ferric Sodium Gluconate 125 mg (/ Sodium Chloride) 110 mls @ 100 mls/hr IVPB DAILY [facility] Stop: 12/24/19 10:46 Last Admin: 12/22/19 09:51 Dose: 100 mls/hr Documented by: Insulin Aspart (Insulin Aspart (Novolog) 100 Unit/Ml Vial) 0 unit SQ ACHS [facility]; Protocol Last Admin: 12/22/19 17:38 Dose: 4 unit Documented by: Lamotrigine (Lamotrigine 100 Mg Tab) 200 mg PO BID@0900,2100 [facility] Last Admin: 12/22/19 19:51 Dose: 200 mg Documented by: Magnesium Hydroxide (Magnesium Hydroxide 2,400 Mg/10 Ml Cup) 2,400 mg PO DAILY PRN PRN Reason: Constipation Last Admin: 12/11/19 21:39 Dose: 2,400 mg Documented by: Metoprolol Tartrate (Metoprolol Tartrate 25 Mg Tab) 25 mg PO BID@0900,2100 [facility] Last Admin: 12/22/19 19:51 Dose: 25 mg Documented by: Miscellaneous Information (Pneumonia Protocol Utilized 1 Each [facility]) 1 each PO ONCE PRN PRN Reason: Per Protocol Miscellaneous Information (Potassium Replacement Protocol 1 Each [facility]) 1 each MISCELLANE DAILY PRN; Protocol PRN Reason: Per Protocol Ondansetron HCl (Ondansetron 4 Mg Tab) 4 mg PO Q8HR PRN PRN Reason: Nausea And Vomiting Last Admin: 12/11/19 20:14 Dose: 4 mg Documented by: Quetiapine Fumarate (Quetiapine 50 Mg Tab) 50 mg PO DAILY [facility] Last Admin: 12/22/19 08:20 Dose: 50 mg Documented by: Senna/Docusate Sodium (Sennosides-Docusate Sodium 1 Each Tab) 4 each PO DAILY@0900 [facility] Last Admin: 12/22/19 08:20 Dose: 4 each Documented by: Tamsulosin HCl (Tamsulosin 0.4 Mg Cap.Er.24h) 0.4 mg PO HS@2100 [facility] Last Admin: 12/22/19 19:50 Dose: 0.4 mg Documented by: Physical examination: VITAL SIGNS: 97.1, 96, 18, 129/76, 93% on 8 L GENERAL: Sitting up in a chair, tired, awake HEENT: Oral mucous membranes are moist EYES: Pupils equal. Conjunctiva normal. NECK: .Cervical collar HEART: First and second heart sounds are normal; no edema. LUNGS: Respiratory rate normal, diminished breath sounds ABDOMEN: Soft, no tenderness,, no guarding rigidity, liver spleen not palpable, no masses palpable. PSYCH: Able to answer questions, anxious NEUROLOGICAL: Cranial nerves grossly intact, moving all 4 limbs INVESTIGATIONS, reviewed in clinical context: Potassium 3.5 bun 46 creatinine 3.13 albumin 2.9 pro-calcitonin 0.75 Previous testing: White count 14.7 hemoglobin 8.5 platelets 328 potassium 4.2 bun 26 creatinine 1.56 Accu-Cheks 102, 78, 66 Troponin I 1.6, 2.7, 1.7 proBNP 1200 EKG tracing personally reviewed by me-normal sinus rhythm Chest x-ray film personally reviewed by me-pulmonary edema, can rule out infiltrate 2-D echocardiogram-EF 60-65% Previous testing: Creatinine 1.0 Assessment: -Acute non-Q wave myocardial infarction-to be managed conservatively -Possible pneumonia, suspect gram-negative organism -Acute congestive heart failure from diastolic dysfunction EF 60 have a 65%- improved - October 10-C6 C7 T1 removal of bone fragments from fracture of C7, decompression fusion and plating-4 C7 fracture, cervical spine stenosis , myelopathy disc herniation: Now presented with trauma with Computed tomography scan of the spine showing dislocation of anterior cervical fusionand C7 increased kyphosis at C6-C7; fracture of the left C6 lamina-status post replacement and repair. -History of C7 epidural abscess that was cleaned. Cultures positive for Staphylococcus epidermidis. From previous admission -Diabetes mellitus type 2, uncontrolled with , hypoglycemia better -Acute metabolic encephalopathy could be from medications in the setting of acute kidney injury especially with decreased oral intake-improved from cutting back on the dose of long-acting morphine. -GERD -Essential hypertension -Obstructive sleep apnea uses a BiPAP machine -Bipolar disorder -Chronic low back pain -Obesity BMI 30.6 -COPD in a current smoker -chronic pancreatitis. -Acute kidney injury could be from vancomycin, also prerenal from decreased oral intake and diuretics-worsening -Oral pharyngeal candidiasis -Acute urinary retention. Place Concepcion catheter. Plan: add saline at 75 mL an hour. Follow electrolytes. On IV daptomycin and Zosyn.
--- NOTE | 2019-12-22 22:12 | PN ---
PROGRESS NOTE DATE OF SERVICE: 12/22/2019 REASON FOR FOLLOWUP: 1. C7 paraspinal abscess. 2. Possible pneumonia. INTERVAL HISTORY: The patient is currently afebrile. The patient is hemodynamically stable. The patient is breathing comfortably. Denies having any chest pain. Minimal cough. No nausea, vomiting, abdominal pain or diarrhea. PHYSICAL EXAMINATION: Blood pressure 140/71 with a pulse of 104, temperature 97.9. He is 92% on 8 L nasal cannula. General description is a middle-aged male up in the bed in no distress. RESPIRATORY SYSTEM: Unlabored breathing with decreased breath sounds at the base. No wheeze. HEART: S1, S2. Regular rate and rhythm. ABDOMEN: Soft. No tenderness. LABS: BUN of 46, creatinine 3.13. Blood culture has been negative. DIAGNOSTIC IMPRESSION AND PLAN: 1. Patient with a C7 paraspinal abscess, status post drainage on this admission. Culture with Staph epi. The patient is covered with daptomycin; to continue for at least another week in the outpatient setting. 2. Patient with worsening respiratory symptoms and concern for possible pneumonitis, covered with Zosyn. Kidney function seems to get worse. Nephrology is on the case. Continue supportive care. MMODL / IJN: [id number] /
[2019-12-23] MEDS ORDERED: QUEtiapine 50 MG TAB PO STA (01:36)
[2019-12-23] MEDS: PIPERACILLIN-TAZOBACTAM 3.375 GM in SODIUM CHLORIDE 0.9% 100 ML IVPB SCH ×2 (01:59→11:10)
[2019-12-23] MEDS: SODIUM CHLORIDE 0.9% 1,000 ML IV SCH ×2 (05:58→11:18)
[2019-12-23 06:12] LABS: Glucose,Whole Blood 190 mg/dL (75-99)
[2019-12-23] MEDS: INSULIN ASPART (NovoLOG) 100 UNIT/ML VIAL SQ SCH ×4 (06:41→21:15)
[2019-12-23 08:18] LABS: Basophils % (A) 0 %; Eosinophils # (A) 0.3 k/uL (0-0.7); Eosinophils % (A) 2 %; HCT 26.7 % (39.0-53.0); HGB 8.1 gm/dL (13.0-17.5); Hypochromasia Marked; Lymphocytes # (A) 1.4 k/uL (1.0-4.8); Lymphocytes % (A) 10 %; MCH 26.1 pg (25.0-35.0); MCHC 30.2 g/dL (31.0-37.0); MCV 86.3 fL (80.0-100.0); Mean Platelet Volume 7.2; Monocytes # (A) 0.6 k/uL (0-1.0); Monocytes % (A) 4 %; Neutrophils # (A) 12.2 k/uL (1.3-7.7); Neutrophils % (A) 83 %; Platelet Count 360 k/uL (150-450); RBC 3.09 m/uL (4.30-5.90); WBC 14.6 k/uL (3.8-10.6)
[2019-12-23 08:31] LABS: Magnesium 1.9 mg/dL (1.6-2.3); Potassium 3.7 mmol/L (3.5-5.1)
--- NOTE | 2019-12-23 09:15 | P.PN ---
Subjective Patient is seen in follow-up for acute kidney injury. Renal function better today. Currently on normal saline at 75 mL an hour. No edema. Has been voiding. Calcium level now normal. Denies vomiting or diarrhea. Oral intake fair. More agitated today. Once to be discharged. Vital signs are stable. General: The patient appeared well nourished and normally developed. HEENT: Head exam is unremarkable. Neck is without jugular venous distension. LUNGS: Lungs are clear to auscultation and percussion. Breath sounds decreased. HEART: Rate and Rhythm are regular. ABDOMEN: Soft, nontender. EXTREMITITES: No edema. Objective - Vital Signs Vital signs: Vital Signs Temp 97.7 F 12/23/19 00:00 Pulse 107 H 12/23/19 03:52 Resp 25 H 12/23/19 03:52 BP 132/72 12/23/19 03:52 Pulse Ox 98 12/23/19 03:52 Intake & Output 12/22/19 12/23/19 12/23/19 18:59 06:59 18:59 Intake Total 1080 525 Output Total 875 925 300 Balance 205 -400 -300 Weight 95.8 kg 96.7 kg Intake: IV 100 DAPTOmycin 600 mg In 100 Sodium Chloride 0.9% 50 ml @ 100 mls/hr IVPB Q24HR [facility] Rx#:[id number] Intake, IV Titration 200 375 Amount DAPTOmycin 600 mg In 100 Sodium Chloride 0.9% 50 ml @ 100 mls/hr IVPB Q24HR [facility] Rx#:[id number] Piperacillin-Tazobactam 3 100 200 .375 gm In Sodium Chloride 0.9% 100 ml @ 25 mls/hr IVPB Q8HR [facility] Rx# :[id number] Sodium Chloride 0.9% 1, 75 000 ml @ 75 mls/hr IV . [id number] [facility] Rx#:[id number] Sodium Ferric Gluconat- 100 Sucrose 125 mg In Sodium Chloride 0.9% 100 ml @ 100 mls/hr IVPB DAILY [facility] Rx#:[id number] Oral 780 150 Output: Urine 875 925 300 Other: Voiding Method Urinal Urinal Diaper Diaper # Voids 1 1 - Labs CBC & Chem 7: 12/23/19 07:12 12/23/19 07:12 Labs: Abnormal Lab Results - Last 24 Hours (Table) 12/22/19 12/22/19 12/22/19 Range/Units 11:39 16:38 20:27 WBC (3.8-10.6) k/uL RBC (4.30-5.90) m/uL Hgb (13.0-17.5) gm/dL Hct (39.0-53.0) % MCHC (31.0-37.0) g/dL Neutrophils # (1.3-7.7) k/uL Sodium (137-145) mmol/L Chloride (98-107) mmol/L BUN (9-20) mg/dL Creatinine (0.66-1.25) mg/dL Glucose (74-99) mg/dL POC Glucose (mg/dL) 192 H 202 H 265 H (75-99) mg/dL 12/23/19 12/23/19 12/23/19 Range/Units 05:51 07:12 07:12 WBC 14.6 H (3.8-10.6) k/uL RBC 3.09 L (4.30-5.90) m/uL Hgb 8.1 L (13.0-17.5) gm/dL Hct 26.7 L (39.0-53.0) % MCHC 30.2 L (31.0-37.0) g/dL Neutrophils # 12.2 H (1.3-7.7) k/uL Sodium 135 L (137-145) mmol/L Chloride 94 L (98-107) mmol/L BUN 46 H (9-20) mg/dL Creatinine 2.84 H (0.66-1.25) mg/dL Glucose 163 H (74-99) mg/dL POC Glucose (mg/dL) 190 H (75-99) mg/dL Assessment and Plan Plan: Assessment: 1. Acute kidney injury secondary to ATN secondary to hypercalcemia and vancomycin. Creatinine peaked at 3.13 this admission and is 2.84 today . Baseline creatinine near 1. UA benign. No hydronephrosis noted on kidney ultrasound. 2. Hypercalcemia, non-parathyroid mediated. Workup negative so far. PTH related peptide pending. Better. 3. Status post spine surgery with removal of hardware. Maintained on antibiotics. 4. Benign hypertension. Controlled. 5. Diabetes mellitus. 6. Iron deficiency anemia. Plan: Decrease normal saline to 50 mL an hour. Continue to hold diuretics. Follow-up PTH related peptide. Encouraged oral intake. IV iron 3 doses. Third dose today. Hold amlodipine for systolic blood pressure less than 120.
[2019-12-23] MEDS: SODIUM FERRIC GLUCONAT-SUCROSE 125 MG in SODIUM CHLORIDE 0.9% 100 ML IVPB SCH (09:27)
--- NOTE | 2019-12-23 09:32 | XR ---
EXAMINATION TYPE: XR chest 1V portable DATE OF EXAM: 12/23/2019 CLINICAL HISTORY: pneumonia. TECHNIQUE: Portable frontal view of the chest. COMPARISON: 12/20/2019 chest radiograph FINDINGS: Low lung volumes and pulmonary disease obscures the cardiac silhouette. Mediastinal silhou ette is unremarkable. There is redemonstrated diffuse interstitial and patchy airspace opacities of t he bilateral lungs. Persistent small right pleural effusion. Mild haziness of the left costophrenic a ngle may represent tiny left pleural effusion. No pneumothorax. Patient is wearing cervical collar. C ervical spine fusion hardware. Old fracture deformity of the right inferior scapula. IMPRESSION: Diffuse interstitial and airspace opacities, as well as small bilateral pleural effusion s are not significantly changed versus 12/20/2019.
[2019-12-23] MEDS: FAMOTIDINE 20 MG TAB PO SCH (11:16)
[2019-12-23] MEDS: ENOXAPARIN 100 MG/ML SYRINGE SQ SCH ×2 (11:16→21:16)
[2019-12-23] MEDS: amLODIPine 5 MG TAB PO SCH (11:16)
[2019-12-23] MEDS: FENOFIBRATE 160 MG TAB PO SCH (11:16)
[2019-12-23] MEDS: FERROUS SULFATE 325 MG TAB PO SCH ×2 (11:16→21:15)
[2019-12-23] MEDS: QUEtiapine 50 MG TAB PO SCH (11:17)
[2019-12-23] MEDS: METOPROLOL TARTRATE 25 MG TAB PO SCH ×2 (11:17→21:15)
[2019-12-23] MEDS: SENNOSIDES-DOCUSATE SODIUM 1 EACH TAB PO SCH (11:17)
[2019-12-23] MEDS: FLUCONAZOLE 100 MG TAB PO SCH (11:17)
[2019-12-23] MEDS: lamoTRIgine 100 MG TAB PO SCH ×2 (11:17→21:15)
[2019-12-23 11:25] LABS: Glucose,Whole Blood 187 mg/dL (75-99)
--- NOTE | 2019-12-23 12:43 | P.PN ---
Subjective Progress Note Date: 12/23/19 Principal diagnosis: Hypoxemia, shortness of breath, altered mentation 54-year-old white male patient of Dr. Wood with past medical history of hypertension, diabetes mellitus, obstructive sleep apnea on BiPAP, chronic back pain, chronic smoker, history of anxiety, depression, who was recently hospitalized from 10/30/2019 through 11/11/2019 when he came in for evaluation o f severe shoulder pain after she sustained a fall at home a few weeks following his cervical spine surgery on 10/11/2019 for traumatic T7 burst fracture. Computed tomography scan of the cervical spine revealed traumatic displacement of anterior cervical internal fixation from C6 to T1, and on 10/31/2019 patient underwent anterior cervical decompression and fusion of C6 through T1 extending up to C5 with revision corpectomy C7 with short cage extending from C6 through T1 and posterior cervical fusion of C5 through T2. Patient had an episode of chest pain during the last admission, was evaluated by cardiology, EKG and echocardiogram without significant findings, d-dimer was elevated, CTA chest was without evidence of pulmonary embolism. Patient was discharged to [facility]. Of note during his surgery. Patient was found to have a cervical epidural abscess positive for Staphylococcus epidermidis and he was discharged with a PICC line in place for vancomycin infusions for 6 weeks. On 12/09/2019 patient was brought into the emergency department for evaluation of altered mental status, and hypoxemia with O2 saturations of 88%, blood sugar was 66 patient was given half amp of glucose with improvement of his symptoms. His oral membranes are extremely dry, patient is unclear whether he has been eating or drinking well. He seems somewhat confused, he is currently on 5 L of oxygen, he has removed his oxygen, and he is desaturating into the low 80s, seems leth argic. Denies any fevers, denies any dyspnea. Chest x-ray showed patchy perihilar and basilar infiltrates with a concern for pneumonia. Brain CT showed no acute abnormality. EKG showed normal sinus rhythm. Labs showed a white blood cell count of 14.7, hemoglobin of 8.5, INR is 1.2, sodium is 134, potassium is 4.2, chloride is 97, CO2 31, BUN is 26, creatinine is 1.56, lactic acid 0.8, troponin is 1.650, proBNP is 1200, urinalysis without sign of infection. Current antibiotic coverage is in the form of azithromycin, Zosyn, and we resumed his vancomycin for recent cervical spine abscess. COVID 19 PCR was sent, pending at this time. Patient is afebrile, he is lethargic, but breathing is nonlabored, he is a poor historian, he is confused. On 12/10/2019 patient seen in follow-up on selective care unit, he is much more awake today, overnight she was the BiPAP with settings of 12/5 and FiO2 of 45%, he is currently on 4 L of oxygen, he sitting up on the edge of the bed, in some questions appropriately, denies any acute distress, his been afebrile overnight. He was started on IV Lasix, continues on antibiotics including vancomycin and Zosyn, no hemoptysis, no completed chest pain, echocardiogram is pending, patient was started on therapeutic doses of Lovenox, lung sounds are diminished, with crackles in the mid to bilateral lower lobes. His troponin is 2.73. Cardiology consultation is pending, coronavirus was negative On 12/11/2019 patient seen in follow-up on selective care unit, he is awake and alert, resting comfortably in bed, he is currently on 6 L of oxygen pulse ox 96%, vital signs stable, afebrile, breathing is nonlabored, no wheezing, no rhonchi, no significant cough or congestion. Much more awake on today's exam, his been wearing his BiPAP at night. Today's chest x-ray shows stable alveolar and interstitial edema, despite the diuretics. Afebrile, ID service is following, her cultures have shown no growth, current antibiotic coverage is in the form of daptomycin and Zosyn. His swallowing evaluation was within normal limits. The patient is seen today 12/12/2019 in follow-up on the selective care unit. He is currently sitting up at the bedside. Awake and alert in no acute distress. Breathing a bit easier today compared to yesterday. Maintaining O2 saturations in the 90s on 4 L high flow nasal cannula. He's been afebrile. Blood culture reveals no growth to date. Sodium 135. Potassium 3.2. Creatinine 2.36. He is continued on Zosyn and daptomycin. Remains on bronchodilators. The patient is seen today 12/13/2019 in follow-up on the selective care unit. He is currently resting comfortably in bed. Awake and alert in no acute d istress. He denies any worsening shortness of breath, cough or congestion. He is maintaining good O2 saturation in the 90s on 4 L per nasal cannula. He does desaturate into the 70s on room air. He's afebrile. Blood culture reveals no growth. White count 12.6. Hemoglobin 10.2. Sodium 1:30. Potassium 4.0. Creatinine 2.81. He remains on DuoNeb inhalations, daptomycin, Zosyn. Chest x- ray reveals persistent prominence of pulmonary interstitium. Right infrahilar infiltrate persists although is improving. Small effusions. Patient is seen today 12/16/2019 in follow-up on the selective care unit. He is currently resting comfortably in bed. Awake and alert in no acute distress. He denies any worsening shortness of breath, cough or congestion. He appears alert and oriented at times and other times he appears confused. Maintaining O2 saturations in the 90s on 6 L high flow nasal cannula, alternating with BiPAP at 45% FiO2. He is afebrile. Blood cultures reveal no growth. White count 13.5. Hemoglobin 10.2. Sedimentation 4. Potassium 3.9. Creatinine 2.23. Remains on bronchodilators. Currently on daptomycin. Lovenox for DVT prophylaxis. The patient is seen today 12/17/2019 in follow-up on the selective care unit. He is currently resting in bed. He is on the BiPAP. Currently 12/5 and 45% FiO2. Apparently the patient had pulled his BiPAP off earlier and was found on the floor. At that time his O2 saturation was in the 70s. Recovered and back at 97%. Arterial blood gases reveal a pO2 of 70, pCO2 44, pH 7.46. Blood cultures reveal no growth. White count 10.6. Hemoglobin 8.3. Sodium 134. Potassium 3.6. Bicarb 33. Creatinine 2.18. He remains on DuoNeb inhalations, antibiotics in the form of daptomycin. He is on Lovenox. Received Lasix IVP 1 today. The patient is seen today 12/18/2019 in follow-up on the selective care unit. He is currently sitting up in a chair at the bedside. Awake and alert in no acute distress. Currently off the BiPAP. Maintaining O2 saturations in the 90s on 10 L high flow nasal cannula. He is afebrile. Still tachycardic. Hypertensive. Blood culture reveals no growth. Sodium 135. Potassium 3.8. Creatinine 2.18. C-reactive protein 252. Pro-calcitonin 0.75. Remains on Zosyn and daptomycin. Lovenox for DVT prophylaxis. Received Lasix 40 mg IVP 1 today. The patient is seen today 12/19/2019 in follow-up on the selective care unit. He is currently resting comfortably in bed. Wearing the BiPAP with settings of 12/5 and 45% FiO2. Comfortable in no acute distress. He has been slow to progress. He's been having a poor appetite lately now. Blood cultures reveal no growth. Blood glucose 193. He remains on bronchodilators, antibiotics in the form of daptomycin and Zosyn, Lovenox, diuretics. The patient is seen today 12/20/2019 in follow-up on the selective care unit. He is currently resting flat in bed. Complaining of being somewhat short of breath. He has been utilizing 10 L high flow alternating with BiPAP support. Chest x-ray continues to revealed diffuse interstitial and patchy airspace opacities. Small right pleural effusion. Sodium 137. Potassium 3.0. Creatinine 2.61. Bicarb 34. Lasix 80 mg IVP 1 today per nephrology. He remains on bronchodilators, daptomycin, Zosyn. Patient seen today 12/23/2019 in follow-up on the selective care unit. He is currently resting comfortably in bed. Utilizing BiPAP at 12/5 and 45% FiO2 alternating with 6 L high flow nasal cannula to maintain O2 saturations in the 90s. He is continued on Zosyn. Chest x-ray continues to show interstitial airspace opacities as well as small bilateral pleural effusions. Stable from 12/20/2019. Blood cultures reveal no growth. White count 14.6. Hemoglobin 8.1. Sodium 135. Potassium 3.7. Creatinine 2.84. Continued on bronchodilators and daptomycin. Objective - Vital Signs Vital signs: Vital Signs Temp 98.5 F 12/23/19 11:15 Pulse 105 H 12/23/19 11:15 Resp 23 12/23/19 11:15 BP 138/76 12/23/19 11:15 Pulse Ox 97 12/23/19 11:15 Intake & Output 12/22/19 12/23/19 12/23/19 18:59 06:59 18:59 Intake Total 1080 525 Output Total 875 925 300 Balance 205 -400 -300 Weight 95.8 kg 96.7 kg Intake: IV 100 DAPTOmycin 600 mg In 100 Sodium Chloride 0.9% 50 ml @ 100 mls/hr IVPB Q24HR [facility] Rx#:[id number] Intake, IV Titration 200 375 Amount DAPTOmycin 600 mg In 100 Sodium Chloride 0.9% 50 ml @ 100 mls/hr IVPB Q24HR [facility] Rx#:[id number] Piperacillin-Tazobactam 3 100 200 .375 gm In Sodium Chloride 0.9% 100 ml @ 25 mls/hr IVPB Q8HR [facility] Rx# :[id number] Sodium Chloride 0.9% 1, 75 000 ml @ 75 mls/hr IV . [id number] [facility] Rx#:[id number] Sodium Ferric Gluconat- 100 Sucrose 125 mg In Sodium Chloride 0.9% 100 ml @ 100 mls/hr IVPB DAILY [facility] Rx#:[id number] Oral 780 150 Output: Urine 875 925 300 Stool 0 Other: Voiding Method Urinal Urinal Urinal Diaper Diaper Diaper # Voids 1 1 - Exam GENERAL EXAM: Alert, 54-year-old male, appears older than stated age, resting flat in bed, on BiPAP 12/5 and 45% FiO2, alternating with 6 L high flow nasal cannula. HEAD: Normocephalic/atraumatic. EYES: Normal reaction of pupils, equal size. Conjunctiva pink, sclera white. NOSE: Clear with pink turbinates. THROAT: No erythema or exudates. NECK: No masses, no JVD, no thyroid enlargement, no adenopathy. Posterior neck incision is clean dry and intact. Patient has a C-collar in place CHEST: No chest wall deformity. Symmetrical expansion. LUNGS: Equal air entry with coarse crackles at bilateral lower and mid lungs CVS: Regular rate and rhythm, normal S1 and S2, no gallops, no murmurs, no rubs ABDOMEN: Soft, nontender. No hepatosplenomegaly, normal bowel sounds, no guarding or rigidity. EXTREMITIES: No clubbing, no edema, no cyanosis, 2+ pulses and upper and lower extremities. MUSCULOSKELETAL: Muscle strength and tone normal. SPINE: No scoliosis or deformity SKIN: No rashes CENTRAL NERVOUS SYSTEM: No focal deficits, tone is normal in all 4 extremities. PSYCHIATRIC: Alert and oriented -3. Appropriate affect. Intact judgment and insight - Labs CBC & Chem 7: 12/23/19 07:12 12/23/19 07:12 Labs: Abnormal Lab Results - Last 24 Hours (Table) 12/22/19 12/22/19 12/23/19 Range/Units 16:38 20:27 05:51 WBC (3.8-10.6) k/uL RBC (4.30-5.90) m/uL Hgb (13.0-17.5) gm/dL Hct (39.0-53.0) % MCHC (31.0-37.0) g/dL Neutrophils # (1.3-7.7) k/uL Sodium (137-145) mmol/L Chloride (98-107) mmol/L BUN (9-20) mg/dL Creatinine (0.66-1.25) mg/dL Glucose (74-99) mg/dL POC Glucose (mg/dL) 202 H 265 H 190 H (75-99) mg/dL 12/23/19 12/23/19 12/23/19 Range/Units 07:12 07:12 11:24 WBC 14.6 H (3.8-10.6) k/uL RBC 3.09 L (4.30-5.90) m/uL Hgb 8.1 L (13.0-17.5) gm/dL Hct 26.7 L (39.0-53.0) % MCHC 30.2 L (31.0-37.0) g/dL Neutrophils # 12.2 H (1.3-7.7) k/uL Sodium 135 L (137-145) mmol/L Chloride 94 L (98-107) mmol/L BUN 46 H (9-20) mg/dL Creatinine 2.84 H (0.66-1.25) mg/dL Glucose 163 H (74-99) mg/dL POC Glucose (mg/dL) 187 H (75-99) mg/dL Assessment and Plan Assessment: #1. Acute on chronic hypoxic respiratory failure related to possibility of pneumonia, chest x-ray showed patchy perihilar and basilar infiltrates, rule out possibility of aspiration, remains on daptomycin #2. Altered mental status likely related to metabolic encephalopathy #3. Elevated troponin, EKG without significant findings, recent echocardiogram showed preserved EF of 55-60%, no significant valvular disease, PA pressure of 26.3 mmHg. #4. Recent hospitalization for cervical spine epidural abscess of anterior cervical C7, and patient was discharged to [facility] on the vancomycin infusions for 6 weeks and which he continues #5. History of cervical myelopathy is status post surgical revision of C6 through T1 and corpectomy of C7 due to trauma, following a fall. Patient had open reduction and internal fixation carpectomy of C7 and fusion of C6 to T1 for recent C7 burst fracture on 10/11/2019 #6. Acute kidney injury, worsening related to diuretic therapy, nephrology is on the case as #7. Obstructive sleep apnea on BiPAP therapy at home #8. Chronic smoker, unknown whether the patient is still smoking #9. Suspect underlying history of COPD #10. Diabetes mellitus type 2 #11. Hypertension #12. History of pancreatitis #13. History of anxiety, depression #14. Poor overall functional performance based on the above-mentioned multiple comorbidities Plan: The patient was seen and evaluated by Dr. Magallon Chest x-ray and labs reviewed Remains on bronchodilators, daptomycin Titrate down the FiO2 as tolerated, utilize BiPAP as needed during the day and throughout the evenings Will need subacute rehabilitation post discharge We'll continue to follow I, the cosigning physician, performed a history & physical examination of the p atient. Lungs sounds with coarse crackles in the bilateral bases. Maintaining good O2 saturations in the 90s on 45% FiO2 on the BiPAP 12/5 alternating with 6 L high flow nasal cannula. I discussed the assessment and plan of care with my nurse practitioner, Isela Prasad. I attest to the above note as dictated by her.
[2019-12-23] MEDS: IPRATROPIUM-ALBUTEROL 3 ML NEB INHALATION PRN ×2 (15:43→22:10)
--- NOTE | 2019-12-23 16:34 | P.PN ---
Progress Note - Text Progress Note Date: 12/23/19 Chief Complaint: Tired History of presenting complaint: This is a 54-year-old patient who follows with Dr. thomas from [place]. Chronic stable medical conditions include diabetes mellitus type II on insulin pump.,GERD, hypertension, obstructive sleep apnea uses CPAP, chronic pancreatitis, bipolar disorder and chronic low back pain. 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 underwent cervical spine surgery by Dr. Shanks-on October 10 2019. Patient is here in November-took a fall with displacement of the internal fixation and graft at C6 to T1. Patient underwent surgery in October 30. With removal of hardware and revision fixation At multiple levels. Local abscess was cleaned out. Cultures growing Staphylococcus epidermidis. Has a cervical collar since then. Patient is brought in from the EMS from the rehab. Patient is found to be bit confused. Had oxygen saturation 88% and a blood glucose down to 66. In the ER he reported feeling weak and tired. Not sure about his oral intake. No fever reported. Admitted with acute non-Q-wave WA, acute congestive heart failure exacerbation, possible pneumonia. Put on IV Lasix. Therapeutic Lovenox dose. Patient remained rather lethargic tired sleepy. Creatinine was going up. I did cut back on the dose of patient's long-acting morphine. Also dose of Neurontin cutback. Also treated for oral candidiasis. Patient gone into acute kidney injury possibly prerenal. Lasix discontinued. Gentle hydration. Today- sitting up in a chair. Oral intake limited. Long-acting OxyContin discontinued per Dr. Magallon yesterday. Review of systems: Was done for constitutional, cardiovascular, GI, pulmonary. relevant finding as above Active Medications Al Hydroxide/Mg Hydroxide (Mag Hydrox/Al Hydrox/Simeth 30 Ml Cup) 30 ml PO Q4H PRN PRN Reason: Constipation Albuterol/Ipratropium (Ipratropium-Albuterol 3 Ml Neb) 3 ml INHALATION RT-Q4H PRN PRN Reason: shortness of breath Last Admin: 12/23/19 15:43 Dose: 3 ml Documented by: Amlodipine Besylate (Amlodipine 5 Mg Tab) 5 mg PO DAILY@0900 [facility] Last Admin: 12/23/19 11:16 Dose: 5 mg Documented by: Enoxaparin Sodium (Enoxaparin 100 Mg/Ml Syringe) 100 mg SQ Q12HR [facility] Last Admin: 12/23/19 11:16 Dose: 100 mg Documented by: Famotidine (Famotidine 20 Mg Tab) 20 mg PO DAILY [facility] Last Admin: 12/23/19 11:16 Dose: 20 mg Documented by: Fenofibrate (Fenofibrate 160 Mg Tab) 160 mg PO DAILY@0900 [facility] Last Admin: 12/23/19 11:16 Dose: 160 mg Documented by: Ferrous Sulfate (Ferrous Sulfate 325 Mg Tab) 325 mg PO BID@0800,2100 [facility] Last Admin: 12/23/19 11:16 Dose: 325 mg Documented by: Fluconazole (Fluconazole 100 Mg Tab) 100 mg PO DAILY [facility] Last Admin: 12/23/19 11:17 Dose: 100 mg Documented by: Gabapentin (Gabapentin 300 Mg Cap) 300 mg PO HS [facility] Last Admin: 12/22/19 19:52 Dose: 300 mg Documented by: Daptomycin 600 mg/ Sodium (Chloride) 50 mls @ 100 mls/hr IVPB Q24HR [facility]; Protocol Last Admin: 12/23/19 11:05 Dose: 100 mls/hr Documented by: Ferric Sodium Gluconate 125 mg (/ Sodium Chloride) 110 mls @ 100 mls/hr IVPB DAILY [facility] Stop: 12/24/19 10:46 Last Admin: 12/23/19 09:27 Dose: 100 mls/hr Documented by: Sodium Chloride (Saline 0.9%) 1,000 mls @ 50 mls/hr IV .Q20H [facility] Last Admin: 12/23/19 11:18 Dose: 50 mls/hr Documented by: Insulin Aspart (Insulin Aspart (Novolog) 100 Unit/Ml Vial) 0 unit SQ ACHS [facility]; Protocol Last Admin: 12/23/19 14:42 Dose: Not Given Documented by: Lamotrigine (Lamotrigine 100 Mg Tab) 200 mg PO BID@0900,2100 [facility] Last Admin: 12/23/19 11:17 Dose: 200 mg Documented by: Magnesium Hydroxide (Magnesium Hydroxide 2,400 Mg/10 Ml Cup) 2,400 mg PO DAILY PRN PRN Reason: Constipation Last Admin: 12/11/19 21:39 Dose: 2,400 mg Documented by: Metoprolol Tartrate (Metoprolol Tartrate 25 Mg Tab) 25 mg PO BID@0900,2100 [facility] Last Admin: 12/23/19 11:17 Dose: 25 mg Documented by: Miscellaneous Information (Pneumonia Protocol Utilized 1 Each [facility]) 1 each PO ONCE PRN PRN Reason: Per Protocol Miscellaneous Information (Potassium Replacement Protocol 1 Each [facility]) 1 each MISCELLANE DAILY PRN; Protocol PRN Reason: Per Protocol Ondansetron HCl (Ondansetron 4 Mg Tab) 4 mg PO Q8HR PRN PRN Reason: Nausea And Vomiting Last Admin: 12/11/19 20:14 Dose: 4 mg Documented by: Quetiapine Fumarate (Quetiapine 50 Mg Tab) 50 mg PO DAILY [facility] Last Admin: 12/23/19 11:17 Dose: 50 mg Documented by: Senna/Docusate Sodium (Sennosides-Docusate Sodium 1 Each Tab) 4 each PO DAILY@0900 [facility] Last Admin: 12/23/19 11:17 Dose: 4 each Documented by: Tamsulosin HCl (Tamsulosin 0.4 Mg Cap.Er.24h) 0.4 mg PO HS@2100 [facility] Last Admin: 12/22/19 19:50 Dose: 0.4 mg Documented by: Physical examination: VITAL SIGNS: 98.5, 105, 23, 138/76, 97% on oxygen GENERAL: Sitting up in a chair, tired, awake HEENT: Oral mucous membranes are moist EYES: Pupils equal. Conjunctiva normal. NECK: .Cervical collar HEART: First and second heart sounds are normal; no edema. LUNGS: Respiratory rate normal, diminished breath sounds ABDOMEN: Soft, no tenderness,, no guarding rigidity, liver spleen not palpable, no masses palpable. PSYCH: Able to answer questions, anxious NEUROLOGICAL: Cranial nerves grossly intact, moving all 4 limbs INVESTIGATIONS, reviewed in clinical context: White count 14.6 hemoglobin 8.1 platelets 360 potassium 3.7 bun 46 creatinine 2.84 pro-calcitonin 0.75 Previous testing: White count 14.7 hemoglobin 8.5 platelets 328 potassium 4.2 bun 26 creatinine 1.56 Accu-Cheks 102, 78, 66 Troponin I 1.6, 2.7, 1.7 proBNP 1200 EKG tracing personally reviewed by me-normal sinus rhythm Chest x-ray film personally reviewed by me-pulmonary edema, can rule out infiltrate 2-D echocardiogram-EF 60-65% Previous testing: Creatinine 1.0 Assessment: -Acute non-Q wave myocardial infarction-to be managed conservatively -Possible pneumonia, suspect gram-negative organism -Acute congestive heart failure from diastolic dysfunction EF 60 have a 65%- improved - October 10-C6 C7 T1 removal of bone fragments from fracture of C7, decompression fusion and plating-4 C7 fracture, cervical spine stenosis , myelopathy disc herniation: Now presented with trauma with Computed tomography scan of the spine showing dislocation of anterior cervical fusionand C7 increased kyphosis at C6-C7; fracture of the left C6 lamina-status post replacement and repair. -History of C7 epidural abscess that was cleaned. Cultures positive for Staphylococcus epidermidis. From previous admission -Diabetes mellitus type 2, uncontrolled with , hypoglycemia better -Acute metabolic encephalopathy could be from medications in the setting of acute kidney injury especially with decreased oral intake-improved from cutting back on the dose of long-acting morphine.-Improving -GERD -Essential hypertension -Obstructive sleep apnea uses a BiPAP machine -Bipolar disorder -Chronic low back pain -Obesity BMI 30.6 -COPD in a current smoker -chronic pancreatitis. -Acute kidney injury could be from vancomycin, also prerenal from decreased oral intake and diuretics-worsening -Oral pharyngeal candidiasis -Acute urinary retention. Place Concepcion catheter. Plan: Continue with gentle hydration at 50 mL an hour. Oral intake increased. Patient requesting to see Dr. Magallon coated patient surgery. Repeat labs in the morning. Antiemetics to continue.
[2019-12-23 16:47] LABS: Glucose,Whole Blood 196 mg/dL (75-99)
--- NOTE | 2019-12-23 16:48 | XR ---
Result: History: Follow-up cervical fusion. Comparison: 11/09/2019. Technique: 4 views of the cervical spine. Findings: There is demonstration of C5-T1 ACDF with intervening cage device. No evidence of hardware complicati on. No acute fracture or subluxation. There is normal alignment of C1 on C2 as seen on the open mouth odontoid view. The prevertebral soft tissues are unremarkable. There is moderate cervical spondylosi s at nonsurgical site. Impression: C5-T1 ACDF without hardware complication or acute osseous abnormality.
[2019-12-23 20:57] LABS: Glucose,Whole Blood 223 mg/dL (75-99)
[2019-12-23] MEDS: TAMSULOSIN 0.4 MG CAP.ER.24H PO SCH (21:15)
[2019-12-23] MEDS: GABAPENTIN 300 MG CAP PO SCH (21:15)
[2019-12-24 05:55] LABS: Glucose,Whole Blood 237 mg/dL (75-99)
[2019-12-24] MEDS: INSULIN ASPART (NovoLOG) 100 UNIT/ML VIAL SQ SCH ×4 (06:32→20:48)
[2019-12-24] MEDS: SODIUM CHLORIDE 0.9% 1,000 ML IV SCH ×2 (06:33→20:48)
[2019-12-24] MEDS: IPRATROPIUM-ALBUTEROL 3 ML NEB INHALATION PRN ×4 (07:50→19:46)
[2019-12-24] MEDS: SENNOSIDES-DOCUSATE SODIUM 1 EACH TAB PO SCH (08:43)
--- NOTE | 2019-12-24 09:13 | P.PN ---
Subjective Patient is seen in follow-up for acute kidney injury. Labs pending from this morning. Currently on normal saline at 50 mL an hour. No edema. Has been voiding. Calcium level now normal. Denies vomiting or diarrhea. Oral intake fair. Blood pressure stable. Vital signs are stable. General: The patient appeared well nourished and normally developed. HEENT: Head exam is unremarkable. Neck is without jugular venous distension. LUNGS: Lungs are clear to auscultation and percussion. Breath sounds decreased. HEART: Rate and Rhythm are regular. ABDOMEN: Soft, nontender. EXTREMITITES: No edema. Objective - Vital Signs Vital signs: Vital Signs Temp 98.1 F 12/23/19 20:00 Pulse 111 H 12/24/19 08:09 Resp 22 12/24/19 04:00 BP 139/79 12/24/19 04:00 Pulse Ox 97 12/24/19 04:00 Intake & Output 12/23/19 12/24/19 12/24/19 18:59 06:59 18:59 Intake Total 525 Output Total 1000 500 Balance -475 -500 Weight 100.9 kg Intake: Oral 525 Output: Urine 1000 500 Stool 0 Other: Voiding Method Urinal Urinal Diaper Diaper # Voids 1 1 - Labs CBC & Chem 7: 12/23/19 07:12 12/23/19 07:12 Labs: Abnormal Lab Results - Last 24 Hours (Table) 12/23/19 12/23/19 12/23/19 Range/Units 11:24 16:46 20:49 POC Glucose (mg/dL) 187 H 196 H 223 H (75-99) mg/dL 12/24/19 Range/Units 05:44 POC Glucose (mg/dL) 237 H (75-99) mg/dL Assessment and Plan Plan: Assessment: 1. Acute kidney injury secondary to ATN secondary to hypercalcemia and vancomycin. Creatinine peaked at 3.13 this admission and 2.84 as of yesterday . Baseline creatinine near 1. UA benign. No hydronephrosis noted on kidney ultrasound. 2. Hypercalcemia, non-parathyroid mediated. Workup negative so far. PTH related peptide pending. Better. 3. Status post spine surgery with removal of hardware. Maintained on antibiotics. 4. Benign hypertension. Controlled. 5. Diabetes mellitus. 6. Iron deficiency anemia. Status post 3 doses of IV iron. Plan: Maintain normal saline at 50 mL an hour - can likely Hep-Lock tomorrow. Continue to hold diuretics. Follow-up PTH related peptide. Encouraged oral intake. Hold amlodipine for systolic blood pressure less than 120.
[2019-12-24 09:31] LABS: Calcium 8.7 mg/dL (8.4-10.2); Potassium 3.8 mmol/L (3.5-5.1)
[2019-12-24] MEDS: FERROUS SULFATE 325 MG TAB PO SCH ×2 (11:00→20:48)
[2019-12-24] MEDS: amLODIPine 5 MG TAB PO SCH (11:00)
[2019-12-24] MEDS: QUEtiapine 50 MG TAB PO SCH (11:01)
[2019-12-24] MEDS: lamoTRIgine 100 MG TAB PO SCH ×2 (11:01→20:47)
[2019-12-24] MEDS: FAMOTIDINE 20 MG TAB PO SCH (11:01)
[2019-12-24] MEDS: FENOFIBRATE 160 MG TAB PO SCH (11:01)
[2019-12-24] MEDS: METOPROLOL TARTRATE 25 MG TAB PO SCH ×2 (11:01→20:48)
[2019-12-24] MEDS: FLUCONAZOLE 100 MG TAB PO SCH (11:01)
[2019-12-24] MEDS: ENOXAPARIN 100 MG/ML SYRINGE SQ SCH ×2 (11:02→20:48)
--- NOTE | 2019-12-24 11:10 | P.PN ---
Progress Note - Text Progress Note Date: 12/24/19 The patient is seen and examined today at bedside. He has been in the hospital over the past couple weeks due to his breathing possible sepsis. He still complains of shortness of breath. He says his neck is not giving him significant pain. He feels his arms are essentially unchanged and continue to be weak. On exam his neck incision sites clean dry and intact there is no erythema there is no swelling. His hard cervical collar is intact and fitting appropriately. There is no skin breakdown. His upper extremities have some atrophy particularly on the left side. He has very limited use of his left hand and fingers. He has weakness his bilateral hands. He is able to lift his arms up with weakness on the left. He has minimal strength with left biceps. He had repeat x-rays of the cervical spine yesterday and that shows the hardware intact from C5 to T2. It appears to be well seated without any evidence of loosening fracture or fatigue. Assessment and plan Approximately 2 months status post revision open reduction internal fixation and corpectomy with fusion from C5 to T2 due to a traumatic fracture at C6 Bilateral upper extremity weakness due to spinal cord injury Decreased oxygen saturation In regards to the patient's cervical spine and it appears to be healing ap propriately at this point. He continues to have significant weakness at his upper extremities and is very likely that he will have permanent neurologic change and he understands this. I would like to have therapy work with him to continue to try to maximize function of his bilateral upper extremities. The surgical site appears to be healing appropriately but I think that is necessary to have him in a hard cervical collar for 12 weeks postop. He is approximately 8 weeks postop now and he will continue to hard cervical collar for another 4 weeks. I discussed this with him and he understands. From a orthopedic spine standpoint we will order therapy and we can follow him up on outpatient basis in approximately 2 weeks' time.
[2019-12-24 12:02] LABS: Glucose,Whole Blood 246 mg/dL (75-99)
[2019-12-24] MEDS: SODIUM FERRIC GLUCONAT-SUCROSE 125 MG in SODIUM CHLORIDE 0.9% 100 ML IVPB SCH (12:34)
--- NOTE | 2019-12-24 12:57 | P.PN ---
Subjective Progress Note Date: 12/24/19 Principal diagnosis: Hypoxemia, shortness of breath, altered mentation 54-year-old white male patient of Dr. Wood with past medical history of hypertension, diabetes mellitus, obstructive sleep apnea on BiPAP, chronic back pain, chronic smoker, history of anxiety, depression, who was recently hospitalized from 10/30/2019 through 11/11/2019 when he came in for evaluation of severe shoulder pain after she sustained a fall at home a few weeks following his cervical spine surgery on 10/11/2019 for traumatic T7 burst fracture. Computed tomography scan of the cervical spine revealed traumatic displacement of anterior cervical internal fixation from C6 to T1, and on 10/31/2019 patient underwent anterior cervical decompression and fusion of C6 through T1 extending up to C5 with revision corpectomy C7 with short cage extending from C6 through T1 and posterior cervical fusion of C5 through T2. Patient had an episode of chest pain during the last admission, was evaluated by cardiology, EKG and echocardiogram without significant findings, d-dimer was elevated, CTA chest was without evidence of pulmonary embolism. Patient was discharged to [facility]. Of note during his surgery. Patient was found to have a cervical epidural abscess positive for Staphylococcus epidermidis and he was discharged with a PICC line in place for vancomycin infusions for 6 weeks. On 12/09/2019 patient was brought into the emergency department for evaluation of a ltered mental status, and hypoxemia with O2 saturations of 88%, blood sugar was 66 patient was given half amp of glucose with improvement of his symptoms. His oral membranes are extremely dry, patient is unclear whether he has been eating or drinking well. He seems somewhat confused, he is currently on 5 L of oxygen, he has removed his oxygen, and he is desaturating into the low 80s, seems cindy rgic. Denies any fevers, denies any dyspnea. Chest x-ray showed patchy perihilar and basilar infiltrates with a concern for pneumonia. Brain CT showed no acute abnormality. EKG showed normal sinus rhythm. Labs showed a white blood cell count of 14.7, hemoglobin of 8.5, INR is 1.2, sodium is 134, potassium is 4.2, chloride is 97, CO2 31, BUN is 26, creatinine is 1.56, lactic acid 0.8, troponin is 1.650, proBNP is 1200, urinalysis without sign of infection. Current antibiotic coverage is in the form of azithromycin, Zosyn, and we resumed his vancomycin for recent cervical spine abscess. COVID 19 PCR was sent, pending at this time. Patient is afebrile, he is lethargic, but breathing is nonlabored, he is a poor historian, he is confused. On 12/10/2019 patient seen in follow-up on selective care unit, he is much more awake today, overnight she was the BiPAP with settings of 12/5 and FiO2 of 45%, he is currently on 4 L of oxygen, he sitting up on the edge of the bed, in some questions appropriately, denies any acute distress, his been afebrile overnight. He was started on IV Lasix, continues on antibiotics including vancomycin and Zosyn, no hemoptysis, no completed chest pain, echocardiogram is pending, patient was started on therapeutic doses of Lovenox, lung sounds are diminished, with crackles in the mid to bilateral lower lobes. His troponin is 2.73. Cardiology consultation is pending, coronavirus was negative On 12/11/2019 patient seen in follow-up on selective care unit, he is awake and alert, resting comfortably in bed, he is currently on 6 L of oxygen pulse ox 96%, vital signs stable, afebrile, breathing is nonlabored, no wheezing, no rhonchi, no significant cough or congestion. Much more awake on today's exam, his been wearing his BiPAP at night. Today's chest x-ray shows stable alveolar and interstitial edema, despite the diuretics. Afebrile, ID service is following, her cultures have shown no growth, current antibiotic coverage is in the form of daptomycin and Zosyn. His swallowing evaluation was within normal limits. On 12/14/2019 patient seen in follow-up on selective care units. He is awake and alert, in no acute distress, currently on 3 L of oxygen pulse ox 93%, his been wearing the BiPAP support at night, his been afebrile, vital signs have been stable, breathing is nonlabored, he is receiving IV hydration with 0.9 normal seen a rate of 75 ML per hour, his mucous membranes are extremely dry, patient is asking for some water. Denies any chest pain, denies any hemoptysis, no significant cough or congestion, last chest x-ray from yesterday showed persistent prominence of pulmonary interstitium, and a right infrahilar infiltra te which seems to be improving in appearance, and small pleural effusions. Renal profile slightly improved on today's labs, although still significantly elevated, with BUN of 34 and creatinine of 2.67, white blood cell count is 10.6, hemoglobin is 8.7, sodium is 137, potassium 3.3, CO2 is 40, chloride is 92, yesterday's follow-up pro-calcitonin came back elevated to 0.74 from the initial is 0.30 on 12/10/2019 however patient's renal profile also doubled from his last pro-calcitonin which could also explain increase in his pro-calcitonin level. His blood culture has shown no growth. Patient continues on daptomycin and Zosyn for antibiotic coverage On 12/15/2019 patient seen in follow-up on selective care unit, he is currently on BiPAP, he is having a renal ultrasound done at the bedside, renal profile continues to slightly improve every day, he remains on IV fluids at 75 ML per hour, he is on Zosyn for empiric antibiotic coverage. His BiPAP settings of 12/5 and FiO2 of 45%, today's labs show BUN of 33, and creatinine of 2.48, patient is awake, he is responding appropriately on BiPAP support, today's chest x-ray has been reviewed showing progressive perihilar and basilar infiltrates with pleural effusions, had no fever or chills, no compressive chest pain, no phlegm production. On 12/21/2019 patient seen in follow-up on selective care unit, he sitting up in the recliner, seems confused, seems sedated, physical therapy is in the room, try to work with the patient. Patient is operative suite with therapy very well, lung sounds are coarse, with some scattered crackles. He still on 10 L of oxygen, his pulse ox 94%, his been afebrile. His last chest x-ray from yesterday showed continued diffuse interstitial and patchy airspace opacities and small right pleural effusion. ID service is following, and patient continues on daptomycin, fluconazole and Zosyn for recent paraspinal abscess, and possibility of aspiration pneumonia. His blood cultures show no growth. He continues to require large amounts of oxygen, he he is on BiPAP at bedtime. Yesterday she received 80 mg of IV Lasix, nephrology is following, today's creatinine is 2.93. No vomiting, no diarrhea. On 12/24/2019 patient seen in follow-up on selective care unit, FiO2 is down to 4 L, patient is much more awake, appears to be in no acute distress, he did wear BiPAP at night, no completed chest pain, no hemoptysis, breathing is comfortable, has had no fever or chills. Patient is on a combination of daptomycin and oral fluconazole. Blood culture has been negative. His had no acute events overnight, patient has been followed by physical therapy. He is receiving gentle IV hydration, his renal profile is improving, BUN is 42 and creatinine is 2.6 today Objective - Vital Signs Vital signs: Vital Signs Temp 98.1 F 12/23/19 20:00 Pulse 112 H 12/24/19 11:26 Resp 22 12/24/19 04:00 BP 139/79 12/24/19 04:00 Pulse Ox 97 12/24/19 04:00 Intake & Output 12/23/19 12/24/19 12/24/19 18:59 06:59 18:59 Intake Total 525 400 Output Total 1000 500 Balance -475 -500 400 Weight 100.9 kg Intake: Oral 525 400 Output: Urine 1000 500 Stool 0 Other: Voiding Method Urinal Urinal Diaper Diaper # Voids 1 1 3 # Bowel Movements 4 - Exam GENERAL EXAM: Awake and alert, 54-year-old white male, currently on 4 L of oxygen the pulse ox of 94%, wears BiPAP at bedtime was pressures of 12 and 5 and FiO2 of 45% HEAD: Normocephalic/atraumatic. EYES: Normal reaction of pupils, equal size. Conjunctiva pink, sclera white. NOSE: Clear with pink turbinates. THROAT: No erythema or exudates. NECK: No masses, no JVD, no thyroid enlargement, no adenopathy. Posterior neck incision is clean dry and intact. Patient has a neck collar in place CHEST: No chest wall deformity. Symmetrical expansion. LUNGS: Equal air entry with coarse crackles at bilateral lower and mid lungs CVS: Regular rate and rhythm, normal S1 and S2, no gallops, no murmurs, no rubs ABDOMEN: Soft, nontender. No hepatosplenomegaly, normal bowel sounds, no guarding or rigidity. EXTREMITIES: No clubbing, no edema, no cyanosis, 2+ pulses and upper and lower extremities. MUSCULOSKELETAL: Muscle strength and tone normal. SPINE: No scoliosis or deformity SKIN: No rashes CENTRAL NERVOUS SYSTEM: Awake and alert, oriented 3 No focal deficits, tone is normal in all 4 extremities. - Labs CBC & Chem 7: 12/23/19 07:12 12/24/19 07:40 Labs: Abnormal Lab Results - Last 24 Hours (Table) 12/23/19 12/23/19 12/24/19 Range/Units 16:46 20:49 05:44 Sodium (137-145) mmol/L Chloride (98-107) mmol/L Carbon Dioxide (22-30) mmol/L BUN (9-20) mg/dL Creatinine (0.66-1.25) mg/dL Glucose (74-99) mg/dL POC Glucose (mg/dL) 196 H 223 H 237 H (75-99) mg/dL 12/24/19 12/24/19 Range/Units 07:40 12:01 Sodium 136 L (137-145) mmol/L Chloride 96 L (98-107) mmol/L Carbon Dioxide 31 H (22-30) mmol/L BUN 42 H (9-20) mg/dL Creatinine 2.60 H (0.66-1.25) mg/dL Glucose 182 H (74-99) mg/dL POC Glucose (mg/dL) 246 H (75-99) mg/dL Assessment and Plan Plan: Assessment: #1. Acute on chronic hypoxic respiratory failure related to possibility of pneumonia, chest x-ray showed patchy perihilar and basilar infiltrates, rule out possibility of aspiration, remains on daptomycin and Zosyn #2. Altered mental status likely related to metabolic encephalopathy, in addition to sedatives and narcotics #3. Elevated troponin, EKG without significant findings, recent echocardiogram showed preserved EF of 55-60%, no significant valvular disease, PA pressure of 26.3 mmHg. Cardiology consultations pending #4. Recent hospitalization for cervical spine epidural abscess of anterior cervical C7, and patient was discharged to ECF on the vancomycin infusions for 6 weeks and which he continues #5. History of cervical myelopathy is status post surgical revision of C6 through T1 and corpectomy of C7 due to trauma, following a fall. Patient had open reduction and internal fixation carpectomy of C7 and fusion of C6 to T1 for recent C7 burst fracture on 10/11/2019 #6. Acute kidney injury, worsening related to diuretic therapy #7. Obstructive sleep apnea on BiPAP therapy at home #8. Chronic smoker, unknown whether the patient is still smoking #9. Suspect underlying history of COPD #10. Diabetes mellitus type 2 #11. Hypertension #12. History of pancreatitis #13. History of anxiety, depression Plan: Continue weaning FiO2, encourage deep breathing and coughing, patient is much more awake on today's exam, no distress, no worsening dyspnea, FiO2 is down to 4 L, BiPAP support at night, vital signs are stable, no fever or chills, toleratin g physical therapy, ID service recommendations for antibiotics. From pulmonary perspective patient is stable, improved and can be considered for discharge back to ECF, he can continue BiPAP support at night at 12 and 5 and FiO2 of 45% at the ECF. Outpatient follow-up with Dr. Bryant in the office in 7-10 days I performed a history & physical examination of the patient and discussed their management with my nurse practitioner, Aurelia Arenas. I reviewed the nurse practitioner's note and agree with the documented findings and plan of care. Lung sounds are positive for crackles at bilateral bases The findings and the impression was discussed with the patient. I attest to the documentation by the nurse practitioner. Time with Patient: Less than 30
[2019-12-24 13:03] VITALS: BMI 28.5
[2019-12-24 16:39] LABS: Glucose,Whole Blood 183 mg/dL (75-99)
[2019-12-24 20:13] LABS: Glucose,Whole Blood 226 mg/dL (75-99)
--- NOTE | 2019-12-24 20:21 | P.PN ---
Progress Note - Text Progress Note Date: 12/24/19 Chief Complaint: Tired History of presenting complaint: This is a 54-year-old patient who follows with Dr. thomas from [place]. Chronic stable medical conditions include diabetes mellitus type II on insulin pump.,GERD, hypertension, obstructive sleep apnea uses CPAP, chronic pancreatitis, bipolar disorder and chronic low back pain. 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 underwent cervical spine surgery by Dr. Shanks-on October 10 2019. Patient is here in November-took a fall with displacement of the internal fixation and graft at C6 to T1. Patient underwent surgery in October 30. With removal of hardware and revision fixation At multiple levels. Local abscess was cleaned out. Cultures growing Staphylococcus epidermidis. Has a cervical collar since then. Patient is brought in from the EMS from the rehab. Patient is found to be bit confused. Had oxygen saturation 88% and a blood glucose down to 66. In the ER he reported feeling weak and tired. Not sure about his oral intake. No fever reported. Admitted with acute non-Q-wave LA, acute congestive heart failure exacerbation, possible pneumonia. Put on IV Lasix. Therapeutic Lovenox dose. Patient remained rather lethargic tired sleepy. Creatinine was going up. I did cut back on the dose of patient's long-acting morphine. Also dose of Neurontin cutback. Also treated for oral candidiasis. Patient gone into acute kidney injury possibly prerenal. Lasix discontinued. Gentle hydration. Today- up in a chair. Getting IV fluids at 50 mL an hour. Oral intake limited. Patient picky about food. Review of systems: Was done for constitutional, cardiovascular, GI, pulmonary. relevant finding as above Active Medications Al Hydroxide/Mg Hydroxide (Mag Hydrox/Al Hydrox/Simeth 30 Ml Cup) 30 ml PO Q4H PRN PRN Reason: Constipation Albuterol/Ipratropium (Ipratropium-Albuterol 3 Ml Neb) 3 ml INHALATION RT-Q4H PRN PRN Reason: shortness of breath Last Admin: 12/24/19 19:46 Dose: 3 ml Documented by: Amlodipine Besylate (Amlodipine 5 Mg Tab) 5 mg PO DAILY@0900 ASHLEY Last Admin: 12/24/19 11:00 Dose: 5 mg Documented by: Enoxaparin Sodium (Enoxaparin 100 Mg/Ml Syringe) 100 mg SQ Q12HR [facility] Last Admin: 12/24/19 11:02 Dose: 100 mg Documented by: Famotidine (Famotidine 20 Mg Tab) 20 mg PO DAILY [facility] Last Admin: 12/24/19 11:01 Dose: 20 mg Documented by: Fenofibrate (Fenofibrate 160 Mg Tab) 160 mg PO DAILY@0900 [facility] Last Admin: 12/24/19 11:01 Dose: 160 mg Documented by: Ferrous Sulfate (Ferrous Sulfate 325 Mg Tab) 325 mg PO BID@0800,2100 [facility] Last Admin: 12/24/19 11:00 Dose: 325 mg Documented by: Fluconazole (Fluconazole 100 Mg Tab) 100 mg PO DAILY [facility] Last Admin: 12/24/19 11:01 Dose: 100 mg Documented by: Gabapentin (Gabapentin 300 Mg Cap) 300 mg PO HS [facility] Last Admin: 12/23/19 21:15 Dose: 300 mg Documented by: Daptomycin 600 mg/ Sodium (Chloride) 50 mls @ 100 mls/hr IVPB Q24HR [facility]; Protocol Last Admin: 12/24/19 10:59 Dose: 100 mls/hr Documented by: Sodium Chloride (Saline 0.9%) 1,000 mls @ 50 mls/hr IV .Q20H [facility] Last Admin: 12/24/19 06:33 Dose: 50 mls/hr Documented by: Insulin Aspart (Insulin Aspart (Novolog) 100 Unit/Ml Vial) 0 unit SQ ACHS [facility]; Protocol Last Admin: 12/24/19 17:22 Dose: 3 unit Documented by: Lamotrigine (Lamotrigine 100 Mg Tab) 200 mg PO BID@899,2099 [facility] Last Admin: 12/24/19 11:01 Dose: 200 mg Documented by: Magnesium Hydroxide (Magnesium Hydroxide 2,400 Mg/10 Ml Cup) 2,400 mg PO DAILY PRN PRN Reason: Constipation Last Admin: 12/11/19 21:39 Dose: 2,400 mg Documented by: Metoprolol Tartrate (Metoprolol Tartrate 25 Mg Tab) 25 mg PO BID@0900,2100 [facility] Last Admin: 12/24/19 11:01 Dose: 25 mg Documented by: Miscellaneous Information (Pneumonia Protocol Utilized 1 Each Misc) 1 each PO ONCE PRN PRN Reason: Per Protocol Miscellaneous Information (Potassium Replacement Protocol 1 Each Misc) 1 each MISCELLANE DAILY PRN; Protocol PRN Reason: Per Protocol Ondansetron HCl (Ondansetron 4 Mg Tab) 4 mg PO Q8HR PRN PRN Reason: Nausea And Vomiting Last Admin: 12/11/19 20:14 Dose: 4 mg Documented by: Quetiapine Fumarate (Quetiapine 50 Mg Tab) 50 mg PO DAILY [facility] Last Admin: 12/24/19 11:01 Dose: 50 mg Documented by: Senna/Docusate Sodium (Sennosides-Docusate Sodium 1 Each Tab) 4 each PO DAILY@0900 [facility] Last Admin: 12/24/19 08:43 Dose: Not Given Documented by: Tamsulosin HCl (Tamsulosin 0.4 Mg Cap.Er.24h) 0.4 mg PO HS@2100 [facility] Last Admin: 12/23/19 21:15 Dose: 0.4 mg Documented by: Physical examination: VITAL SIGNS: 96.3, 98, 24, 126/72, 92% on 6 L GENERAL: Sitting up in a chair, , awake HEENT: Oral mucous membranes are moist EYES: Pupils equal. Conjunctiva normal. NECK: .Cervical collar HEART: First and second heart sounds are normal; no edema. LUNGS: Respiratory rate normal, diminished breath sounds ABDOMEN: Soft, no tenderness,, no guarding rigidity, liver spleen not palpable, no masses palpable. PSYCH: Able to answer questions, anxious NEUROLOGICAL: Cranial nerves grossly intact, moving all 4 limbs INVESTIGATIONS, reviewed in clinical context: Potassium 3.8 bun 42 creatinine 2.60 Previous testing: White count 14.7 hemoglobin 8.5 platelets 328 potassium 4.2 bun 26 creatinine 1.56 Accu-Cheks 102, 78, 66 Troponin I 1.6, 2.7, 1.7 proBNP 1200 EKG tracing personally reviewed by me-normal sinus rhythm Chest x-ray film personally reviewed by me-pulmonary edema, can rule out infiltrate 2-D echocardiogram-EF 60-65% Previous testing: Creatinine 1.0 pro-calcitonin 0.75 Assessment: -Acute non-Q wave myocardial infarction-to be managed conservatively -Possible pneumonia, suspect gram-negative organism -Acute congestive heart failure from diastolic dysfunction EF 60 have a 65%- improved - October 10-C6 C7 T1 removal of bone fragments from fracture of C7, decompression fusion and plating-4 C7 fracture, cervical spine stenosis , myelopathy disc herniation: Now presented with trauma with Computed tomography scan of the spine showing dislocation of anterior cervical fusionand C7 increased kyphosis at C6-C7; fracture of the left C6 lamina-status post replacement and repair. -History of C7 epidural abscess that was cleaned. Cultures positive for Staphylococcus epidermidis. From previous admission -Diabetes mellitus type 2, uncontrolled with , hypoglycemia better -Acute metabolic encephalopathy could be from medications in the setting of acute kidney injury especially with decreased oral intake-improved from cutting back on the dose of long-acting morphine.-Improving -GERD -Essential hypertension -Obstructive sleep apnea uses a BiPAP machine -Bipolar disorder -Chronic low back pain -Obesity BMI 30.6 -COPD in a current smoker -chronic pancreatitis. -Acute kidney injury could be from vancomycin, also prerenal from decreased oral intake and diuretics-improving -Oral pharyngeal candidiasis -Acute urinary retention. Place Concepcion catheter. Plan: Continue with gentle hydration . Renal function slowly improving. Continue daptomycin for at least a week after discharge as per Dr. Faulkner was currently medically indisposed
[2019-12-24] MEDS: GABAPENTIN 300 MG CAP PO SCH (20:48)
[2019-12-24] MEDS: TAMSULOSIN 0.4 MG CAP.ER.24H PO SCH (20:48)
[2019-12-25 06:23] LABS: Glucose,Whole Blood 247 mg/dL (75-99)
[2019-12-25] MEDS: INSULIN ASPART (NovoLOG) 100 UNIT/ML VIAL SQ SCH ×3 (06:30→17:08)
[2019-12-25] MEDS: IPRATROPIUM-ALBUTEROL 3 ML NEB INHALATION PRN ×2 (07:02→11:13)
--- NOTE | 2019-12-25 09:12 | P.PN ---
Subjective Patient is seen in follow-up for acute kidney injury. Renal function has been gradually improving. Currently on normal saline at 50 mL an hour. No edema. Has been voiding. Calcium level now normal. Denies vomiting or diarrhea. Oral intake fair. Blood pressure stable. Vital signs are stable. General: The patient appeared well nourished and normally developed. HEENT: Head exam is unremarkable. Neck is without jugular venous distension. LUNGS: Lungs are clear to auscultation and percussion. Breath sounds decreased. HEART: Rate and Rhythm are regular. ABDOMEN: Soft, nontender. EXTREMITITES: No edema. Objective - Vital Signs Vital signs: Vital Signs Temp 97.1 F L 12/24/19 23:50 Pulse 102 H 12/25/19 07:11 Resp 29 H 12/25/19 04:00 BP 130/79 12/25/19 04:00 Pulse Ox 98 12/25/19 04:00 Intake & Output 12/24/19 12/25/19 12/25/19 18:59 06:59 18:59 Intake Total 420 Output Total 0 800 Balance 420 -800 Weight 100.9 kg 97.3 kg Intake: Oral 420 Output: Urine 800 Stool 0 Other: Voiding Method Urinal Urinal Diaper Diaper # Voids 1 # Bowel Movements 2 - Labs CBC & Chem 7: 12/23/19 07:12 12/24/19 07:40 Labs: Abnormal Lab Results - Last 24 Hours (Table) 12/24/19 12/24/19 12/24/19 Range/Units 07:40 12:01 16:37 Sodium 136 L (137-145) mmol/L Chloride 96 L (98-107) mmol/L Carbon Dioxide 31 H (22-30) mmol/L BUN 42 H (9-20) mg/dL Creatinine 2.60 H (0.66-1.25) mg/dL Glucose 182 H (74-99) mg/dL POC Glucose (mg/dL) 246 H 183 H (75-99) mg/dL 12/24/19 12/25/19 Range/Units 20:11 06:18 Sodium (137-145) mmol/L Chloride (98-107) mmol/L Carbon Dioxide (22-30) mmol/L BUN (9-20) mg/dL Creatinine (0.66-1.25) mg/dL Glucose (74-99) mg/dL POC Glucose (mg/dL) 226 H 247 H (75-99) mg/dL Assessment and Plan Plan: Assessment: 1. Acute kidney injury secondary to ATN secondary to hypercalcemia and vancomycin. Creatinine peaked at 3.13 this admission and 2.6 as of yesterday . Baseline creatinine near 1. UA benign. No hydronephrosis noted on kidney ultrasound. 2. Hypercalcemia, non-parathyroid mediated. Workup negative so far. PTH related peptide pending. Better. 3. Status post spine surgery with removal of hardware. Maintained on antibiotics. 4. Benign hypertension. Controlled. 5. Diabetes mellitus. 6. Iron deficiency anemia. Status post 3 doses of IV iron. Plan: Hep-Lock IV fluids. Continue to hold diuretics. Follow-up PTH related peptide. Encouraged oral intake. Hold amlodipine for systolic blood pressure less than 120.
[2019-12-25] MEDS: FENOFIBRATE 160 MG TAB PO SCH (09:14)
[2019-12-25] MEDS: SENNOSIDES-DOCUSATE SODIUM 1 EACH TAB PO SCH (09:14)
[2019-12-25] MEDS: METOPROLOL TARTRATE 25 MG TAB PO SCH (09:14)
[2019-12-25] MEDS: amLODIPine 5 MG TAB PO SCH (09:14)
[2019-12-25] MEDS: FERROUS SULFATE 325 MG TAB PO SCH (09:14)
[2019-12-25] MEDS: FAMOTIDINE 20 MG TAB PO SCH (09:14)
[2019-12-25] MEDS: lamoTRIgine 100 MG TAB PO SCH (09:14)
[2019-12-25] MEDS: QUEtiapine 50 MG TAB PO SCH (09:14)
[2019-12-25] MEDS: FLUCONAZOLE 100 MG TAB PO SCH (09:14)
[2019-12-25] MEDS: ENOXAPARIN 100 MG/ML SYRINGE SQ SCH (09:14)
[2019-12-25 09:39] VITALS: TEMP 98
--- NOTE | 2019-12-25 11:17 | XR ---
EXAMINATION TYPE: XR chest 1V portable DATE OF EXAM: 12/25/2019 Comparison: 12/23/2019 Clinical History: 54-year-old male shortness of breath and Dyspnea Findings: ACDF and posterior cervical fusion hardware. Heart borderline enlarged. Diffuse interstitial opacitie s persist. Continued small to moderate right and small left effusions with bibasilar opacities. Impression: Continued CHF with interstitial pulmonary edema. [id number] right and small left effusions wit h adjacent atelectasis and/or consolidation.
[2019-12-25 11:31] LABS: Calcium 8.5 mg/dL (8.4-10.2); Magnesium 1.9 mg/dL (1.6-2.3); Potassium 3.1 mmol/L (3.5-5.1)
[2019-12-25 12:01] LABS: Glucose,Whole Blood 175 mg/dL (75-99)
[2019-12-25] MEDS ORDERED: QUEtiapine 100 MG TAB PO STA (12:15)
--- NOTE | 2019-12-25 12:57 | P.PN ---
Subjective Progress Note Date: 12/25/19 Principal diagnosis: Hypoxemia, shortness of breath, altered mentation 54-year-old white male patient of Dr. Wood with past medical history of hypertension, diabetes mellitus, obstructive sleep apnea on BiPAP, chronic back pain, chronic smoker, history of anxiety, depression, who was recently hospitalized from 10/30/2019 through 11/11/2019 when he came in for evaluation of severe shoulder pain after she sustained a fall at home a few weeks following his cervical spine surgery on 10/11/2019 for traumatic T7 burst fracture. Computed tomography scan of the cervical spine revealed traumatic displacement of anterior cervical internal fixation from C6 to T1, and on 10/31/2019 patient underwent anterior cervical decompression and fusion of C6 through T1 extending up to C5 with revision corpectomy C7 with short cage extending from C6 through T1 and posterior cervical fusion of C5 through T2. Patient had an episode of chest pain during the last admission, was evaluated by cardiology, EKG and echocardiogram without significant findings, d-dimer was elevated, CTA chest was without evidence of pulmonary embolism. Patient was discharged to [facility]. Of note during his surgery. Patient was found to have a cervical epidural abscess positive for Staphylococcus epidermidis and he was discharged with a PICC line in place for vancomycin infusions for 6 weeks. On 12/09/2019 patient was brought into the emergency department for evaluation of a ltered mental status, and hypoxemia with O2 saturations of 88%, blood sugar was 66 patient was given half amp of glucose with improvement of his symptoms. His oral membranes are extremely dry, patient is unclear whether he has been eating or drinking well. He seems somewhat confused, he is currently on 5 L of oxygen, he has removed his oxygen, and he is desaturating into the low 80s, seems cindy rgic. Denies any fevers, denies any dyspnea. Chest x-ray showed patchy perihilar and basilar infiltrates with a concern for pneumonia. Brain CT showed no acute abnormality. EKG showed normal sinus rhythm. Labs showed a white blood cell count of 14.7, hemoglobin of 8.5, INR is 1.2, sodium is 134, potassium is 4.2, chloride is 97, CO2 31, BUN is 26, creatinine is 1.56, lactic acid 0.8, troponin is 1.650, proBNP is 1200, urinalysis without sign of infection. Current antibiotic coverage is in the form of azithromycin, Zosyn, and we resumed his vancomycin for recent cervical spine abscess. COVID 19 PCR was sent, pending at this time. Patient is afebrile, he is lethargic, but breathing is nonlabored, he is a poor historian, he is confused. On 12/10/2019 patient seen in follow-up on selective care unit, he is much more awake today, overnight she was the BiPAP with settings of 12/5 and FiO2 of 45%, he is currently on 4 L of oxygen, he sitting up on the edge of the bed, in some questions appropriately, denies any acute distress, his been afebrile overnight. He was started on IV Lasix, continues on antibiotics including vancomycin and Zosyn, no hemoptysis, no completed chest pain, echocardiogram is pending, patient was started on therapeutic doses of Lovenox, lung sounds are diminished, with crackles in the mid to bilateral lower lobes. His troponin is 2.73. Cardiology consultation is pending, coronavirus was negative On 12/11/2019 patient seen in follow-up on selective care unit, he is awake and alert, resting comfortably in bed, he is currently on 6 L of oxygen pulse ox 96%, vital signs stable, afebrile, breathing is nonlabored, no wheezing, no rhonchi, no significant cough or congestion. Much more awake on today's exam, his been wearing his BiPAP at night. Today's chest x-ray shows stable alveolar and interstitial edema, despite the diuretics. Afebrile, ID service is following, her cultures have shown no growth, current antibiotic coverage is in the form of daptomycin and Zosyn. His swallowing evaluation was within normal limits. On 12/14/2019 patient seen in follow-up on selective care units. He is awake and alert, in no acute distress, currently on 3 L of oxygen pulse ox 93%, his been wearing the BiPAP support at night, his been afebrile, vital signs have been stable, breathing is nonlabored, he is receiving IV hydration with 0.9 normal seen a rate of 75 ML per hour, his mucous membranes are extremely dry, patient is asking for some water. Denies any chest pain, denies any hemoptysis, no significant cough or congestion, last chest x-ray from yesterday showed persistent prominence of pulmonary interstitium, and a right infrahilar infiltra te which seems to be improving in appearance, and small pleural effusions. Renal profile slightly improved on today's labs, although still significantly elevated, with BUN of 34 and creatinine of 2.67, white blood cell count is 10.6, hemoglobin is 8.7, sodium is 137, potassium 3.3, CO2 is 40, chloride is 92, yesterday's follow-up pro-calcitonin came back elevated to 0.74 from the initial is 0.30 on 12/10/2019 however patient's renal profile also doubled from his last pro-calcitonin which could also explain increase in his pro-calcitonin level. His blood culture has shown no growth. Patient continues on daptomycin and Zosyn for antibiotic coverage On 12/15/2019 patient seen in follow-up on selective care unit, he is currently on BiPAP, he is having a renal ultrasound done at the bedside, renal profile continues to slightly improve every day, he remains on IV fluids at 75 ML per hour, he is on Zosyn for empiric antibiotic coverage. His BiPAP settings of 12/5 and FiO2 of 45%, today's labs show BUN of 33, and creatinine of 2.48, patient is awake, he is responding appropriately on BiPAP support, today's chest x-ray has been reviewed showing progressive perihilar and basilar infiltrates with pleural effusions, had no fever or chills, no compressive chest pain, no phlegm production. On 12/21/2019 patient seen in follow-up on selective care unit, he sitting up in the recliner, seems confused, seems sedated, physical therapy is in the room, try to work with the patient. Patient is operative suite with therapy very well, lung sounds are coarse, with some scattered crackles. He still on 10 L of oxygen, his pulse ox 94%, his been afebrile. His last chest x-ray from yesterday showed continued diffuse interstitial and patchy airspace opacities and small right pleural effusion. ID service is following, and patient continues on daptomycin, fluconazole and Zosyn for recent paraspinal abscess, and possibility of aspiration pneumonia. His blood cultures show no growth. He continues to require large amounts of oxygen, he he is on BiPAP at bedtime. Yesterday she received 80 mg of IV Lasix, nephrology is following, today's creatinine is 2.93. No vomiting, no diarrhea. On 12/24/2019 patient seen in follow-up on selective care unit, FiO2 is down to 4 L, patient is much more awake, appears to be in no acute distress, he did wear BiPAP at night, no completed chest pain, no hemoptysis, breathing is comfortable, has had no fever or chills. Patient is on a combination of daptomycin and oral fluconazole. Blood culture has been negative. His had no acute events overnight, patient has been followed by physical therapy. He is receiving gentle IV hydration, his renal profile is improving, BUN is 42 and creatinine is 2.6 today On 12/25/2019 patient seen in follow-up on selective care unit, today he is having more shortness of breath, anxiety, she was placed on BiPAP support, he is tachypneic, he is using abdominal muscles of breathing, he states he is comfortable on the BiPAP, repeat chest x-ray shows continue CHF with interstitial pulmonary edema, and small to moderate right and small left pleural effusion with adjacent atelectasis. Lung sounds reveal diffuse crackles. Patient has a congestive cough, with no significant phlegm production, he seems very anxious, his pulse ox is 98% on 6 L per nasal cannula. He is on Diflucan, daptomycin for antibiotic coverage. Objective - Vital Signs Vital signs: Vital Signs Temp 98 F 12/25/19 08:20 Pulse 108 H 12/25/19 11:22 Resp 24 12/25/19 08:20 BP 162/91 12/25/19 08:20 Pulse Ox 92 L 12/25/19 08:20 Intake & Output 12/24/19 12/25/19 12/25/19 18:59 06:59 18:59 Intake Total 420 Output Total 0 800 Balance 420 -800 Weight 100.9 kg 97.3 kg Intake: Oral 420 Output: Urine 800 Stool 0 Other: Voiding Method Urinal Urinal Urinal Diaper Diaper Diaper # Voids 1 # Bowel Movements 2 - Exam GENERAL EXAM: Awake and alert, 54-year-old white male, currently on BiPAP, with pressures of 12 and 5, and FiO2 of 50%, with a pulse ox of 98%, patient is having shortness of breath, seems very anxious, he was placed on BiPAP and he states he is more comfortable on BiPAP support, HEAD: Normocephalic/atraumatic. EYES: Normal reaction of pupils, equal size. Conjunctiva pink, sclera white. NOSE: Clear with pink turbinates. THROAT: No erythema or exudates. NECK: No masses, no JVD, no thyroid enlargement, no adenopathy. Posterior neck incision is clean dry and intact. Patient has a neck collar in place CHEST: No chest wall deformity. Symmetrical expansion. LUNGS: Equal air entry with coarse crackles at bilateral lower and mid lungs CVS: Regular rate and rhythm, normal S1 and S2, no gallops, no murmurs, no rubs ABDOMEN: Soft, nontender. No hepatosplenomegaly, normal bowel sounds, no guarding or rigidity. EXTREMITIES: No clubbing, no edema, no cyanosis, 2+ pulses and upper and lower extremities. MUSCULOSKELETAL: Muscle strength and tone normal. SPINE: No scoliosis or deformity SKIN: No rashes CENTRAL NERVOUS SYSTEM: Awake and alert, oriented 3 No focal deficits, tone is normal in all 4 extremities. - Labs CBC & Chem 7: 12/23/19 07:12 12/25/19 10:10 Labs: Abnormal Lab Results - Last 24 Hours (Table) 12/24/19 12/24/19 12/25/19 Range/Units 16:37 20:11 06:18 Sodium (137-145) mmol/L Potassium (3.5-5.1) mmol/L Chloride (98-107) mmol/L Carbon Dioxide (22-30) mmol/L BUN (9-20) mg/dL Creatinine (0.66-1.25) mg/dL Glucose (74-99) mg/dL POC Glucose (mg/dL) 183 H 226 H 247 H (75-99) mg/dL 12/25/19 12/25/19 Range/Units 10:10 12:00 Sodium 133 L (137-145) mmol/L Potassium 3.1 L (3.5-5.1) mmol/L Chloride 96 L (98-107) mmol/L Carbon Dioxide 31 H (22-30) mmol/L BUN 35 H (9-20) mg/dL Creatinine 2.19 H (0.66-1.25) mg/dL Glucose 162 H (74-99) mg/dL POC Glucose (mg/dL) 175 H (75-99) mg/dL Assessment and Plan Plan: Assessment: #1. Acute on chronic hypoxic respiratory failure related to possibility of pneumonia, chest x-ray showed patchy perihilar and basilar infiltrates, rule out possibility of aspiration, remains on daptomycin and Zosyn #2. Altered mental status likely related to metabolic encephalopathy, in addition to sedatives and narcotics #3. Elevated troponin, EKG without significant findings, recent echocardiogram showed preserved EF of 55-60%, no significant valvular disease, PA pressure of 26.3 mmHg. Cardiology consultations pending #4. Recent hospitalization for cervical spine epidural abscess of anterior cervical C7, and patient was discharged to [facility] on the vancomycin infusions for 6 weeks and which he continues #5. History of cervical myelopathy is status post surgical revision of C6 through T1 and corpectomy of C7 due to trauma, following a fall. Patient had open reduction and internal fixation carpectomy of C7 and fusion of C6 to T1 for recent C7 burst fracture on 10/11/2019 #6. Acute kidney injury, worsening related to diuretic therapy #7. Obstructive sleep apnea on BiPAP therapy at home #8. Chronic smoker, unknown whether the patient is still smoking #9. Suspect underlying history of COPD #10. Diabetes mellitus type 2 #11. Hypertension #12. History of pancreatitis #13. History of anxiety, depression Plan: Today's chest x-ray has been reviewed showing relatively stable findings of CHF with interstitial pulmonary edema, small to moderate right and small left pleural effusion with adjacent atelectasis. he is covered with antibiotics, no significant wheezing, continue with nebulized bronchodilators. He may need something for anxiety, he states he is more comfortable on BiPAP support. This may be precipitated by his anxiety attack. We'll defer to the primary care service to order something for anxiety. We'll order Procalcitonin and and proBNP I performed a history & physical examination of the patient and discussed their management with my nurse practitioner, Aurelia Arenas. I reviewed the nurse practitioner's note and agree with the documented findings and plan of care. Lung sounds are positive for crackles at bilateral bases The findings and the impression was discussed with the patient. I attest to the documentation by the nurse practitioner. Time with Patient: Less than 30
[2019-12-25 13:06] LABS: Basophils % (A) 0 %; Eosinophils # (A) 0.2 k/uL (0-0.7); Eosinophils % (A) 2 %; HCT 25.3 % (39.0-53.0); HGB 7.5 gm/dL (13.0-17.5); Hypochromasia Marked; Lymphocytes # (A) 1.1 k/uL (1.0-4.8); Lymphocytes % (A) 9 %; MCH 25.5 pg (25.0-35.0); MCHC 29.5 g/dL (31.0-37.0); MCV 86.4 fL (80.0-100.0); Mean Platelet Volume 7.2; Monocytes # (A) 0.5 k/uL (0-1.0); Monocytes % (A) 4 %; Neutrophils # (A) 10.3 k/uL (1.3-7.7); Neutrophils % (A) 84 %; Platelet Count 360 k/uL (150-450); RBC 2.93 m/uL (4.30-5.90); RDW 15.4 % (11.5-15.5); WBC 12.3 k/uL (3.8-10.6)
[2019-12-25 13:54] VITALS: BP 134/74; PULSE 102; RESP 18
--- NOTE | 2019-12-25 15:15 | P.DS ---
Providers Date of admission: 12/09/19 14:14 Expected date of discharge: 12/25/19 Attending physician: Guy Mendoza Consults: 12/09/19 14:16 Consult Physician Urgent Consulting Provider: Veronica Bryant Consult Reason/Comments: Pneumonia, sepsis Do you want consulting provider notified?: Yes 12/09/19 23:44 Consult Physician Routine Consulting Provider: Carmine Burton Consult Reason/Comments: Acute kidney injury-on vancomycin Do you want consulting provider notified?: Yes 12/12/19 13:08 Consult Physician Urgent Consulting Provider: Nikky Shepherd Consult Reason/Comments: megan Do you want consulting provider notified?: Yes 12/23/19 12:58 Consult Physician Routine Consulting Provider: Srinivas Barger Consult Reason/Comments: assess neck collar-post op Do you want consulting provider notified?: Yes Primary care physician: Jordon Wood [facility] Course: Chief Complaint: Tired History of presenting complaint: This is a 54-year-old patient who follows with Dr. wood from [place]. Chronic stable medical conditions include diabetes mellitus type II on insulin pump.,GERD, hypertension, obstructive sleep apnea uses CPAP, chronic pancreatitis, bipolar disorder and chronic low back pain. 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 underwent cervical spine surgery by Dr. Shanks-on October 10 2019. Patient is here in November-took a fall with displacement of the internal fixation and graft at C6 to T1. Patient underwent surgery in October 30. With removal of hardware and revision fixation At multiple levels. Local abscess was cleaned out. Cultures growing Staphylococcus epidermidis. Has a cervical collar since then. Patient is brought in from the EMS from the rehab. Patient is found to be bit confused. Had oxygen saturation 88% and a blood glucose down to 66. In the ER he reported feeling weak and tired. Not sure about his oral intake. No fever reported. Admitted with acute non-Q-wave IN, acute congestive heart failure exacerbation, possible pneumonia. Put on IV Lasix. Therapeutic Lovenox dose. Patient remained rather lethargic tired sleepy. Creatinine was going up. I did cut back on the dose of patient's long-acting morphine. Also dose of Neurontin cutback. Also treated for oral candidiasis. Patient gone into acute kidney injury possibly prerenal. Lasix discontinued. Gentle hydration. Today- continues to be choosy about food. Discussed with Dr. Magallon from pulmonary. No need for further antibiotics from a pulmonary standpoint. We will give another 2 weeks of IV daptomycin and outpatient follow-up with ID as an outpatient. Patient with a cervical collar for another 4 weeks. Continue to hold Lasix for now. BiPAP per Dr. Magallon Discussion and discharge planning more than 35 minutes Consultation: Dr. Magallon and partners from pulmonary Nephrology Dr. Burton [facility] Physical examination: VITAL SIGNS: 98, 100, 24, 134/74, 92% on 4l GENERAL: Sitting up in a chair, , awake HEENT: Oral mucous membranes are moist EYES: Pupils equal. Conjunctiva normal. NECK: .Cervical collar HEART: First and second heart sounds are normal; no edema. LUNGS: Respiratory rate normal, diminished breath sounds ABDOMEN: Soft, no tenderness,, no guarding rigidity, liver spleen not palpable, no masses palpable. PSYCH: Answering questions, anxious NEUROLOGICAL: Cranial nerves grossly intact, moving all 4 limbs INVESTIGATIONS, reviewed in clinical context: Potassium 3.1 creatinine 2.19 hemoglobin 7.5 Previous testing: White count 14.7 hemoglobin 8.5 platelets 328 potassium 4.2 bun 26 creatinine 1.56 Accu-Cheks 102, 78, 66 Troponin I 1.6, 2.7, 1.7 proBNP 1200 EKG tracing personally reviewed by me-normal sinus rhythm Chest x-ray film personally reviewed by me-pulmonary edema, can rule out infiltrate 2-D echocardiogram-EF 60-65% Previous testing: Creatinine 1.0 pro-calcitonin 0.75 Assessment: -Acute non-Q wave myocardial infarction-to be managed conservatively -Possible pneumonia, suspect gram-negative organism -Acute congestive heart failure from diastolic dysfunction EF 60 have a 65%- improved - October 10-C6 C7 T1 removal of bone fragments from fracture of C7, decompression fusion and plating-4 C7 fracture, cervical spine stenosis , myelopathy disc herniation: Now presented with trauma with Computed tomography scan of the spine showing dislocation of anterior cervical fusionand C7 increased kyphosis at C6-C7; fracture of the left C6 lamina-status post replacement and repair. -History of C7 epidural abscess that was cleaned. Cultures positive for Staphylococcus epidermidis. From previous admission -Diabetes mellitus type 2, uncontrolled with , hypoglycemia better -Acute metabolic encephalopathy could be from medications in the setting of acute kidney injury especially with decreased oral intake-improved from cutting back on the dose of long-acting morphine.-Improving -GERD -Essential hypertension -Obstructive sleep apnea uses a BiPAP machine -Bipolar disorder -Chronic low back pain -Obesity BMI 30.6 -COPD in a current smoker -chronic pancreatitis. -Acute kidney injury could be from vancomycin, also prerenal from decreased oral intake and diuretics-improving -Oral pharyngeal candidiasis -Acute urinary retention. Place Concepcion catheter. Disposition: F/[facility] Patient Condition at Discharge: Stable Plan - Discharge Summary Discharge Rx Participant: No New Discharge Prescriptions: New DAPTOmycin [Cubicin] 600 mg IVPB Q24HR #14 vial Fluconazole [Diflucan] 100 mg PO DAILY #7 tab Ipratropium-Albuterol Nebulize [Duoneb 0.5 mg-3 mg/3 ml Soln] 3 ml INHALATION QID ml Continue Fenofibrate Nanocrystallized [Fenofibrate] 145 mg PO DAILY@0900 Montelukast [Singulair] 10 mg PO HS@2100 Metoprolol Tartrate [Lopressor] 25 mg PO BID@0900,2100 lamoTRIgine 200 mg PO BID@0900,2100 amLODIPine [Norvasc] 5 mg PO DAILY@0900 Multivitamins, Thera [Multivitamin (formulary)] 1 tab PO DAILY@0900 Ergocalciferol [Vitamin D2 (DRISDOL)] 50,000 unit PO SA Albuterol Sulfate [Ventolin HFA] 2 puff INHALATION RT-Q4H PRN PRN Reason: Shortness Of Breath Diclofenac Sodium Gel [Voltaren Gel] 2 gm TOPICAL QID PRN PRN Reason: ARMS Dicyclomine [Bentyl] 20 mg PO Q6H PRN PRN Reason: CRAMPS DULoxetine HCL [Cymbalta] 30 mg PO BID@0900,2100 INSULIN ASPART (NovoLOG) [NovoLOG (formulary)] See Protocol SQ ACHS Ondansetron [Zofran] 4 mg PO Q12HR PRN PRN Reason: Nausea Mag Hydrox/Aluminum Hyd/Simeth [Mylanta Maximum Strength Liq] 30 ml PO Q4H PRN PRN Reason: Constipation Magnesium Hydroxide [Milk of Magnesia] 2,400 mg PO DAILY PRN PRN Reason: Constipation Famotidine [Pepcid] 20 mg PO BID@0900,2100 Ferrous Sulfate [Iron (65 MG Elemental)] 325 mg PO BID@0800,2100 Tamsulosin [Flomax] 0.4 mg PO HS@2100 Pravastatin Sodium [Pravachol] 40 mg PO HS@2100 traMADol HCL [Ultram] 50 mg PO Q4HR PRN 3 Days #18 tab PRN Reason: Pain Changed Insulin Glargine,Hum.rec.anlog [Basaglar Kwikpen U-100] 15 unit SQ HS@2100 #0 Cyclobenzaprine [Flexeril] 5 mg PO TID@0600,1400,2200 PRN #1 PRN Reason: Spasms Gabapentin [Neurontin] 300 mg PO Q12H #6 cap QUEtiapine FUMARATE [SEROquel] 200 mg PO HS@2100 #3 tab Discontinued traZODone HCL [Desyrel] 100 mg PO HS@2100 Gabapentin [Neurontin] 300 mg PO BID PRN PRN Reason: Pain oxyCODONE-APAP 10-325MG [Percocet 10-325 mg] 1 - 2 tab PO Q4H PRN PRN Reason: Pain oxyCODONE HCL [OxyCONTIN] 20 mg PO Q12H Vancomycin HCl in 5 % Dextrose [Vancomycin 1 Gram/250 ml-D5w] 1 dose IV HS@2100 Sennosides-Docusate Sodium [Senokot-S] 4 tab PO DAILY@0900 Discharge Medication List Fenofibrate Nanocrystallized [Fenofibrate] 145 mg PO DAILY@0908/07/13 [History] Metoprolol Tartrate [Lopressor] 25 mg PO BID@0900,209908/07/13 [History] Montelukast [Singulair] 10 mg PO HS@209908/07/13 [History] lamoTRIgine 200 mg PO BID@0900,209910/01/16 [History] Multivitamins, Thera [Multivitamin (formulary)] 1 tab PO DAILY@0900 10/22/16 [History] amLODIPine [Norvasc] 5 mg PO DAILY@0900 10/22/16 [History] Ergocalciferol [Vitamin D2 (DRISDOL)] 50,000 unit PO SA 10/31/18 [History] Albuterol Sulfate [Ventolin HFA] 2 puff INHALATION RT-Q4H PRN 09/02/19 [History] DULoxetine HCL [Cymbalta] 30 mg PO BID@0900,209909/02/19 [History] Diclofenac Sodium Gel [Voltaren Gel] 2 gm TOPICAL QID PRN 09/02/19 [History] Dicyclomine [Bentyl] 20 mg PO Q6H PRN 09/02/19 [History] INSULIN ASPART (NovoLOG) [NovoLOG (formulary)] See Protocol SQ ACHS 09/02/19 [History] Famotidine [Pepcid] 20 mg PO BID@0900,209912/09/19 [History] Ferrous Sulfate [Iron (65 MG Elemental)] 325 mg PO BID@0800,209912/09/19 [History] Mag Hydrox/Aluminum Hyd/Simeth [Mylanta Maximum Strength Liq] 30 ml PO Q4H PRN 12/09/19 [History] Magnesium Hydroxide [Milk of Magnesia] 2,400 mg PO DAILY PRN 12/09/19 [History] Ondansetron [Zofran] 4 mg PO Q12HR PRN 12/09/19 [History] Pravastatin Sodium [Pravachol] 40 mg PO HS@209912/09/19 [History] Tamsulosin [Flomax] 0.4 mg PO HS@209912/09/19 [History] Cyclobenzaprine [Flexeril] 5 mg PO TID@0600,1400,2200 PRN #1 12/25/19 [Rx] DAPTOmycin [Cubicin] 600 mg IVPB Q24HR #14 vial 12/25/19 [Rx] Fluconazole [Diflucan] 100 mg PO DAILY #7 tab 12/25/19 [Rx] Gabapentin [Neurontin] 300 mg PO Q12H #6 cap 12/25/19 [Rx] Insulin Glargine,Hum.rec.anlog [Basaglar Kwikpen U-100] 15 unit SQ HS@2099 #0 12/25/19 [Rx] Ipratropium-Albuterol Nebulize [Duoneb 0.5 mg-3 mg/3 ml Soln] 3 ml INHALATION QID ml 12/25/19 [Rx] QUEtiapine FUMARATE [SEROquel] 200 mg PO HS@2100 #3 tab 12/25/19 [Rx] traMADol HCL [Ultram] 50 mg PO Q4HR PRN 3 Days #18 tab 12/25/19 [Rx] Follow up Appointment(s)/Referral(s): Fidencio Cat MD [STAFF PHYSICIAN] - 1 Week Jordon Wood MD [Primary Care Provider] - 1-2 Days Kanu Banks DO [STAFF PHYSICIAN] - 1 Week Veronica Bryant MD [STAFF PHYSICIAN] - 1 Week Activity/Diet/Wound Care/Special Instructions: Smiley on the [place] Cervical spine: Collar-4 weeks Plan of Treatment: Bi-Pap support at night and as needed during the day 12/5, Fio2 45%
[2019-12-25] MEDS ORDERED: POTASSIUM CHLORIDE ER 20 MEQ TAB.ER PO STA (16:15)
[2019-12-25 16:52] LABS: Glucose,Whole Blood 183 mg/dL (75-99)
[2019-12-25] MEDS ORDERED: QUEtiapine 100 MG TAB PO SCH (21:00)
--- NOTE | 2019-12-28 17:08 | CDI ---
Documentation Clarification Form Date: 12/28/19 From: Brigette Nguyen Phone: If you have a question about this query, please contact Ade Barnett, Arts Manager at [phone] between 8am and 5pm. Admit Date: 12/09/19 Discharge Date:12/25/19 Patient Name: Sergio Martini Visit Number: [id number] ATTENTION: The Clinical Documentation Specialists (CDI) and [facility] Coding Staff appreciate your assistance in clarifying documentation. Please respond to the clarification below the line at the bottom and electronically sign. The CDI & [facility] Coding staff will review the response and follow-up if needed. Please note: Queries are made part of the Legal Health Record. If you have any questions, please contact the author of this message via ITS. Dear Dr. Mendoza Conflicting documentation has been found in the medical record: You documented acute non-Q wave myocardial infarction. Cardiology 12/10 progress note - suspect type 2 NSTEMI. 12/09 & 12/10 progress notes - Elevated troponins, may be secondarty to infectious process however cannont rule out coronary artery disease. Cardiology response to query regarding IL - Type 2 NSTEMI secondary to sepsis, YADIRA present on admission History/Risk Factors: Acute on chronic diastolic CHF, hypertensive cardiovascular disease, pneumonia, acute on chronic hypoxic respiratory failure. Clinical Indicators: Elevated troponin Troponin: 1.650, 2.730, 1.700 EKG: Without significant findings, normal sinus rhythm Treatment: To be managed conservatively stated in your documentation. Plavix In your opinion, what is the most clinically appropriate diagnosis for this patient? Acute non-Q wave IL Myocardial infarction type II Other explanation of clinical findings Unable to determine (no explanation for clinical findings) See discharge summary-no change in documentation required MTDD
== END 2019-12-25 18:50 | DRG 177 ==
LOC: EC 12:17 → 3SCARD 14:14 → 3NCARDOBS 12-21 22:20
PROVIDERS: ADMIT Hospitalist; ATTEND Hospitalist
PROC: 5A09357 Assistance with Respiratory Ventilation, Less than 24 Consecutive Hours, Continuous Positive Airway Pressure (ICD-10-PCS; principal; 2019-12-10)
DX: J15.6 Pneumonia due to other Gram-negative bacteria (principal); G06.1 Intraspinal abscess and granuloma; G93.41 Metabolic encephalopathy; I50.33 Acute on chronic diastolic (congestive) heart failure; J96.21 Acute and chronic respiratory failure with hypoxia; N17.0 Acute kidney failure with tubular necrosis; I21.4 Non-ST elevation (NSTEMI) myocardial infarction; B37.0 Candidal stomatitis; B37.89 Other sites of candidiasis; K86.1 Other chronic pancreatitis; M50.023 Cervical disc disorder at C6-C7 level with myelopathy; D50.9 Iron deficiency anemia, unspecified; E11.42 Type 2 diabetes mellitus with diabetic polyneuropathy; E11.649 Type 2 diabetes mellitus with hypoglycemia without coma; E11.65 Type 2 diabetes mellitus with hyperglycemia; E66.9 Obesity, unspecified; E83.52 Hypercalcemia; E86.0 Dehydration; E87.6 Hypokalemia; F17.210 Nicotine dependence, cigarettes, uncomplicated; F31.9 Bipolar disorder, unspecified; F41.9 Anxiety disorder, unspecified; G47.33 Obstructive sleep apnea (adult) (pediatric); G89.29 Other chronic pain; I11.0 Hypertensive heart disease with heart failure; I25.10 Atherosclerotic heart disease of native coronary artery without angina pectoris; J44.9 Chronic obstructive pulmonary disease, unspecified; K21.9 Gastro-esophageal reflux disease without esophagitis; K59.00 Constipation, unspecified; M40.209 Unspecified kyphosis, site unspecified; M48.02 Spinal stenosis, cervical region; T36.8X5A Adverse effect of other systemic antibiotics, initial encounter; T50.2X5A Adverse effect of carbonic-anhydrase inhibitors, benzothiadiazides and other diuretics, initial encounter; M19.91 Primary osteoarthritis, unspecified site; M54.40 Lumbago with sciatica, unspecified side; M47.816 Spondylosis without myelopathy or radiculopathy, lumbar region; R33.9 Retention of urine, unspecified; Z20.828 Contact with and (suspected) exposure to other viral communicable diseases; D63.8 Anemia in other chronic diseases classified elsewhere; K76.0 Fatty (change of) liver, not elsewhere classified; Z68.30 Body mass index [BMI] 30.0-30.9, adult; Z79.4 Long term (current) use of insulin; Z79.899 Other long term (current) drug therapy; Z96.41 Presence of insulin pump (external) (internal); Z98.1 Arthrodesis status; Z87.01 Personal history of pneumonia (recurrent); Z88.8 Allergy status to other drugs, medicaments and biological substances; Z87.19 Personal history of other diseases of the digestive system; Z86.14 Personal history of Methicillin resistant Staphylococcus aureus infection; Z90.49 Acquired absence of other specified parts of digestive tract; Z98.890 Other specified postprocedural states; Z87.81 Personal history of (healed) traumatic fracture; Z90.89 Acquired absence of other organs; Z82.49 Family history of ischemic heart disease and other diseases of the circulatory system
CPT/HCPCS: 31500; 36415; 36556; 36600; 70450; 71045; 71046; 72040; 76770; 80048; 80053; 80202; 81003; 82164; 82306; 82330; 82550; 82553; 82565; 82652; 82805; 83036; 83519; 83540; 83550; 83605; 83690; 83735; 83880; 83970; 84132; 84145; 84484; 85025; 85610; 85652; 85730; 86140; 86334; 86335; 87040; 87070; 87205; 92950; 93005; 93308; 94002; 94003; 94640; 94660; 94760; 96361; 96365; 96367; 96368; 96375; 99291; 99292

== ENCOUNTER 2019-12-25 19:38 | Inpatient (IN) | payer MEDICARE, OTHER ==
[~2019-12-25 19:38] MED LIST changes: -ACETAMINOPHEN TAB 500 MG TAB PO ONE; +ATROPINE SULFATE 0.1 MG/ML 10ML SYRINGE ONE; +CALCIUM CHLORIDE 100 MG/ML 10 ML SYRINGE ONE; -DEXAMETHASONE SOD PHOSPHATE 10 MG/ML 1 ML VIAL IV ONE; +EPINEPHrine 10 ML SYRINGE (0.1 MG/ML) ONE; -LACTATED RINGERS 1,000 ML IV SCH; -MELOXICAM 7.5 MG TAB PO ONE; -MIDAZOLAM 2 MG/2 ML VIAL IV PRN; -ONDANSETRON 4 MG/2 ML VIAL IVP ONE; -ROPIVACAINE 246.25 MG, EPINEPHrine 0.5 MG, KETOROLAC 30 MG, cloNIDine HCL/PF 80 MCG, WA... MISCELLANE ONE; -SCOPOLAMINE 1.5MG/72HR PATCH TRANSDERM ONE; +SODIUM BICARB 8.4% 50 ML SYR (1 MEQ/ML) ONE; -TRANEXAMIC ACID 1,000 MG in SODIUM CHLORIDE 0.9% 50 ML IVPB ONE; -fentaNYL (PF) 50 MCG/ML 2 ML AMP IV PRN
[2019-12-25 19:53] LABS: Glucose,Whole Blood 268 mg/dL (75-99)
[2019-12-25] MEDS ORDERED: NOREPINEPHRINE 32 MG in SODIUM CHLORIDE 0.9% 218 ML IV ONE (20:08)
--- NOTE | 2019-12-25 20:24 | ED ---
General Adult HPI - General Chief complaint: Cardiac Arrest/CPR Stated complaint: cardiac arrest Source: EMS Mode of arrival: EMS Limitations: altered mental status - History of Present Illness Initial comments: Dictation was produced using [employer] dictation software. please excuse any grammatical, word or spelling errors. This patient was cared for during a federal and state declared state of emergency secondary to Covid 19 Chief Complaint: 54 yo male presents with cardiac arrest. History of Present Illness: 54 yo old male brought in by EMS for cardiac arrest. Patient was allegedly just discharged from the hospital today. EMS was bringing patient to [facility] when they were 2-3 miles from the hospital on the way to [facility] when patient became unresponsive. EMS reports that patient bradycardia down into the 20s and then all of a sudden became asystolic. CPR was initiated. The recording for approximately 20 minutes prior to coming to the emergency room. They provided patient with 2 rounds of epinephrine. Keenan tube was placed. Unable to obtain secondary to mental status. PHYSICAL EXAM: General Impression: Obtunded HEENT: Normocephalic atraumatic, pale Cardiovascular: Pulseless Chest: Bilateral breath sounds Abdomen: abdomen soft, non-distended, no organomegaly Musculoskeletal: no peripheral edema Neurological: 4 mm reactive to light Skin: Pale ED course: 54 yo M presents after cardiac arrest. Patient is allegedly just d ischarged from the hospital. On it en route from the hospital to [facility] halfway patient had cardiac arrest. Patient was pulseless on arrival. CPR was initiated. Please see code sheet for detailed information of code. Return of spontaneous circulation was achieved. Femoral central venous catheter was placed in the right groin under emergent situation. Radial art line was placed in the right radial artery of the right wrist. Keenan tube was removed and patient was intubated. Chart review was performed. Patient was just discharged from the hospital. According to documentation. Patient was admitted for acute non-Q-wave myocardial infarction to be managed conservatively. He there was possible pneumonia. There is also acute congestive heart failure from diastolic dysfunction. Laboratory evaluation obtained leukocytosis at 13.4. Hemoglobin of 7.7. His CBC markers around baseline. Coag panel is unremarkable. ABG shows pH 7.01 with pCO2 of 79, pO2 of 119 and a bicarb of 20. Metabolic panel shows potassium 6.0, anion gap acidosis, creatinine of 2.46 BUN 34 patient's renal markers are essentially at baseline. Abdominal labs are elevated. An initial x-ray after intubation shows good placement. NG tube was in the left mainstem bronchus. NG tube was removed and replaced. Repeat x-ray for NG tube placement was adequate. There is no moderate right pleural effusion with bilateral makes pulmonary opacities. [facility]. She is agreeable for patient care. Given patient's critical condition ICU doctor, Dr. Magallon's contacted and is willing to accept patient given intensive care unit. Point care bedside ultrasound was performed showing fluid surrounding the right lung. Ultrasound images were placed in patient's chart. This was discussed with Dr. Magallon who requests we order a formal lung ultrasound and he will address possible tho racentesis in the morning. We've patient's cardiac arrest was secondary to hypercarbia versus acute cardiac event. Patient will be admitted to the ICU with consultation to nephrology and cardiology. His hyperkalemia treated with hyperkalemia cocktail. EKG interpretation: Ventricular rate 116, sinus tachycardia,. Interval 176, QRS 154, QTC 494, right bundle branch block. No GA prolongation, no QTC prolongation, no ST or T-wave changes noted. EKG is abnormal compared to 12/09/2019 which is most recent EKG that is available on the electronic medical record. - Related Data Home Medications Medication Instructions Recorded Confirmed Fenofibrate Nanocrystallized 145 mg PO DAILY@0900 08/07/13 12/09/19 [Fenofibrate] Metoprolol Tartrate [Lopressor] 25 mg PO BID@0900,209908/07/13 12/09/19 Montelukast [Singulair] 10 mg PO HS@209908/07/13 12/09/19 lamoTRIgine 200 mg PO BID@0900,209910/01/16 12/09/19 Multivitamins, Thera [Multivitamin 1 tab PO DAILY@89910/22/16 12/09/19 (formulary)] amLODIPine [Norvasc] 5 mg PO DAILY@0910/22/16 12/09/19 Ergocalciferol [Vitamin D2 50,000 unit PO SA 10/31/18 12/09/19 (DRISDOL)] Albuterol Sulfate [Ventolin HFA] 2 puff INHALATION RT-Q4H PRN 09/02/19 12/09/19 DULoxetine HCL [Cymbalta] 30 mg PO BID@0900,2100 09/02/19 12/09/19 Diclofenac Sodium Gel [Voltaren 2 gm TOPICAL QID PRN 09/02/19 12/09/19 Gel] Dicyclomine [Bentyl] 20 mg PO Q6H PRN 09/02/19 12/09/19 INSULIN ASPART (NovoLOG) [NovoLOG See Protocol SQ ACHS 09/02/19 12/09/19 (formulary)] Famotidine [Pepcid] 20 mg PO BID@0900,209912/09/19 12/09/19 Ferrous Sulfate [Iron (65 MG 325 mg PO BID@0800,209912/09/19 12/09/19 Elemental)] Mag Hydrox/Aluminum Hyd/Simeth 30 ml PO Q4H PRN 12/09/19 12/09/19 [Mylanta Maximum Strength Liq] Magnesium Hydroxide [Milk of 2,400 mg PO DAILY PRN 12/09/19 12/09/19 Magnesia] Ondansetron [Zofran] 4 mg PO Q12HR PRN 12/09/19 12/09/19 Pravastatin Sodium [Pravachol] 40 mg PO HS@2100 12/09/19 12/09/19 Tamsulosin [Flomax] 0.4 mg PO HS@2100 12/09/19 12/09/19 Previous Rx's Medication Instructions Recorded Cyclobenzaprine [Flexeril] 5 mg PO TID@0600,1400,2200 PRN #1 12/25/19 DAPTOmycin [Cubicin] 600 mg IVPB Q24HR #14 vial 12/25/19 Fluconazole [Diflucan] 100 mg PO DAILY #7 tab 12/25/19 Gabapentin [Neurontin] 300 mg PO Q12H #6 cap 12/25/19 Insulin Glargine,Hum.rec.anlog 15 unit SQ HS@2100 #0 12/25/19 [Basaglar Kwikpen U-100] Ipratropium-Albuterol Nebulize 3 ml INHALATION QID ml 12/25/19 [Duoneb 0.5 mg-3 mg/3 ml Soln] QUEtiapine FUMARATE [SEROquel] 200 mg PO HS@2100 #3 tab 12/25/19 traMADol HCL [Ultram] 50 mg PO Q4HR PRN 3 Days #18 tab 12/25/19 Allergies Allergy/AdvReac Type Severity Reaction Status Date / Time haloperidol [From Haldol] AdvReac Hallucinati Verified 12/25/19 19:47 ons haloperidol lactate AdvReac Hallucinati Verified 12/25/19 19:47 [From Haldol] ons Review of Systems ROS Statement: Those systems with pertinent positive or pertinent negative responses have been documented in the HPI. ROS Other: All systems not noted in ROS Statement are negative. Past Medical History Past Medical History: Asthma, COPD, Diabetes Mellitus, GERD/Reflux, Hypertension, Musculoskeletal Disorder, Osteoarthritis (OA), Pneumonia, Sleep Apnea/CPAP/BIPAP Additional Past Medical History / Comment(s): Pt recently admitted to [facility] on 10/30/19 with abscess in epidural space cervical spine/failed hardware with surgery/fall with cervical fracture. 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, R scapular fracture, per past meical record-thoracic lesion/pulmonary nodules but pt not sure about this, chronic pancreatitis/pancreatic pseudocyst, hepatic steatosis, past ETOH abuse, History of Any Multi-Drug Resistant Organisms: MRSA Date of last positivie culture/infection: 11/03/2008 MDRO Source:: spine Past Surgical History: Back Surgery, Cholecystectomy, Orthopedic Surgery, Tonsillectomy Additional Past Surgical History / Comment(s): Cervical surgery with recent revision anterior cervical corpectomy C7/removal of hardware and I&D, spinal fusion at L4 and L5, pancreatic surgery for pseudocyst w/stent-stent since removed, EGD Past Anesthesia/Blood Transfusion Reactions: No Reported Reaction Past Psychological History: Anxiety, Bipolar, Depression Smoking Status: Current every day smoker Past Alcohol Use History: None Reported Past Drug Use History: Opiates - Past Family History Mother Family Medical History: Hypertension Additional Family Medical History / Comment(s): Pt states mother had no health problems. Father Family Medical History: No Reported History Additional Family Medical History / Comment(s): pt stated his father is - had no medicals problems and of natural causes. General Exam Limitations: altered mental status Course Vital Signs 10/23/20 10/23/20 10/23/20 20:05 20:18 20:48 Pulse Rate 94 131 H 111 H Respiratory 20 20 16 Rate Blood Pressure 87/50 89/67 123/74 O2 Sat by Pulse 98 87 L 97 Oximetry Procedures - Arterial Line No standard instances Consent Obtained: emergent situation Size (Gauge): 16 Technique Used: direct puncture technique Post-Procedure: line sutured into place Patient Tolerated Procedure: well Complications: none - Central Line Placement Right Femoral Consent Obtained: emergent situation Patient Placed on Monitor/Pulse Ox: Yes MD Prep: mask, gloves Central Line Prep: Povidone-Iodine 1% Ultrasound Used for Placement: No Central Line Lumen Inserted: triple Central Line Position: good blood return, all ports aspirated, flushed, capped, sutured in place with 3-0 nylon Dressing Applied: Tegaderm Patient Tolerated Procedure: well Complications: none - Intubation Laryngoscope: fiber optic video scope Size: 4 ET Tube Size: 8 ET Tube Uncuffed: No Tube Secured Depth (cm): 22 Tube Secured Location: lips Tube Placement Confirmation: visualized tube passing through cords Patient Tolerated Procedure: well Intubation Complications: none Medical Decision Making - Lab Data Result diagrams: 12/25/19 19:45 Lab Results 12/25/19 12/25/19 12/25/19 Range/Units 19:41 19:45 19:45 PT 14.4 H (9.0-12.0) sec INR 1.4 H (<1.2) APTT 35.1 H (22.0-30.0) sec Sample Site ABG pH (7.35-7.45) ABG pCO2 (35-45) mmHg ABG pO2 (83-108) mmHg ABG HCO3 (21-25) mmol/L ABG Total CO2 (19-24) mmol/L ABG O2 Saturation (94-97) % ABG Base Excess mmol/L Urbano Test FiO2 % Sodium 136 L (137-145) mmol/L Potassium 6.0 H (3.5-5.1) mmol/L Chloride 99 (98-107) mmol/L Carbon Dioxide 21 L (22-30) mmol/L Anion Gap 16 mmol/L BUN 34 H (9-20) mg/dL Creatinine 2.46 H (0.66-1.25) mg/dL Est GFR (CKD-EPI)AfAm 33 (>60 ml/min/1.73 sqM) Est GFR (CKD-EPI)NonAf 29 (>60 ml/min/1.73 sqM) Glucose 192 H (74-99) mg/dL POC Glucose (mg/dL) 268 H (75-99) mg/dL POC Glu Geothermal Operations Engineer Eileen Ordaz Calcium 9.2 (8.4-10.2) mg/dL Ionized Calcium Dulce 5.1 (4.5-5.3) mg/dL Magnesium 2.6 H (1.6-2.3) mg/dL Total Bilirubin 0.7 (0.2-1.3) mg/dL AST 428 H (17-59) U/L ALT 90 H (4-49) U/L Alkaline Phosphatase 141 H (38-126) U/L Creatine Kinase 190 H (55-170) U/L Total Protein 5.5 L (6.3-8.2) g/dL Albumin 2.6 L (3.5-5.0) g/dL Lipase 96 (23-300) U/L 12/25/19 Range/Units 20:39 PT (9.0-12.0) sec INR (<1.2) APTT (22.0-30.0) sec Sample Site chon ABG pH 7.01 L* (7.35-7.45) ABG pCO2 79 H* (35-45) mmHg ABG pO2 119 H (83-108) mmHg ABG HCO3 20 L (21-25) mmol/L ABG Total CO2 22 (19-24) mmol/L ABG O2 Saturation 96.3 (94-97) % ABG Base Excess -11.6 mmol/L Urbano Test na FiO2 100 % Sodium (137-145) mmol/L Potassium (3.5-5.1) mmol/L Chloride (98-107) mmol/L Carbon Dioxide (22-30) mmol/L Anion Gap mmol/L BUN (9-20) mg/dL Creatinine (0.66-1.25) mg/dL Est GFR (CKD-EPI)AfAm (>60 ml/min/1.73 sqM) Est GFR (CKD-EPI)NonAf (>60 ml/min/1.73 sqM) Glucose (74-99) mg/dL POC Glucose (mg/dL) (75-99) mg/dL POC Glu Geothermal Operations Engineer ID Calcium (8.4-10.2) mg/dL Ionized Calcium Dulce (4.5-5.3) mg/dL Magnesium (1.6-2.3) mg/dL Total Bilirubin (0.2-1.3) mg/dL AST (17-59) U/L ALT (4-49) U/L Alkaline Phosphatase (38-126) U/L Creatine Kinase (55-170) U/L Total Protein (6.3-8.2) g/dL Albumin (3.5-5.0) g/dL Lipase (23-300) U/L Critical Care Time Critical Care Time: Yes Total Critical Care Time: 77 Disposition Clinical Impression: Cardiac arrest Disposition: ADMITTED IP TO THIS HOSP Condition: Critical Referrals: Jordon Wood MD [Primary Care Provider] - 1-2 days Decision Time: 21:35
--- NOTE | 2019-12-25 20:42 | XR ---
EXAMINATION TYPE: XR chest 1V portable DATE OF EXAM: 12/25/2019 COMPARISON: Same day radiograph at 1057 hours. HISTORY: Shortness of breath. TECHNIQUE: Single frontal view of the chest is obtained. FINDINGS: There is interval placement of an endotracheal tube terminating approximately 4 cm above th e griselda. There is also placement of NG tube with tip terminating above the diaphragm and overlying t he left lower lung. There is a right left PICC in place with distal portion not well visualized. Ther e is development of moderate right pleural effusion. There is increased bilateral moderate mixed pulm onary opacities. No pneumothorax. The cardiac silhouette size is enlarged, stable. The osseous str uctures are intact. IMPRESSION: Status post support apparatus as above. NG tube terminates above the diaphragm and tip overlying the left lower lobe. Findings are concerning for bronchial positioning and recommend readjustment. New moderate right pleural effusion with increased bilateral mixed pulmonary opacities. No pneumothor ax. Findings were reported to caring ER physician by me at the time of dictation.
[2019-12-25 20:43] LABS: Ionized Calcium 5.1 mg/dL (4.5-5.3)
[2019-12-25 20:43] LABS: ABG Base Excess -11.6 mmol/L; ABG HCO3 20 mmol/L (21-25); ABG Oxygen Saturation 96.3 % (94-97); ABG PO2 119 mmHg (83-108); ABG TCO2 22 mmol/L (19-24)
[2019-12-25 20:44] LABS: ABG PCO2 79 mmHg (35-45); ABG PH 7.01 (7.35-7.45)
[2019-12-25 20:48] LABS: INR 1.4 (<1.2); Partial Thromboplastin Time 35.1 sec (22.0-30.0); Prothrombin Time 14.4 sec (9.0-12.0)
[2019-12-25] MEDS ORDERED: VANCOMYCIN IV PER PHARMACY 1 EACH MISC MISCELLANE PRN (20:54)
[2019-12-25 20:55] LABS: Albumin 2.6 g/dL (3.5-5.0); Calcium 9.2 mg/dL (8.4-10.2); Magnesium 2.6 mg/dL (1.6-2.3); Total Bilirubin 0.7 mg/dL (0.2-1.3); Total Protein 5.5 g/dL (6.3-8.2)
[2019-12-25] MEDS ORDERED: INSULIN REGULAR 100 UNIT/ML VIAL IV ONE (20:57)
[2019-12-25] MEDS ORDERED: DEXTROSE 50% SYRINGE 50 ML IVP ONE (20:57)
[2019-12-25] MEDS ORDERED: SODIUM BICARB 8.4% 50 ML SYR (1 MEQ/ML) IV ONE (20:57)
[2019-12-25] MEDS ORDERED: SODIUM POLYSTYRENE SULFONATE 15 GM/60 ML BOTTLE PO ONE (20:57)
[2019-12-25] MEDS ORDERED: ALBUTEROL NEB (CONC) 2.5 MG/0.5 ML INHALATION ONE (20:57)
[2019-12-25] MEDS ORDERED: PIPERACILLIN-TAZOBACTAM 3.375 GM in SODIUM CHLORIDE 0.9% 100 ML IVPB STA (20:59)
[2019-12-25 21:00] LABS: Basophils # (A) 0.1 k/uL (0-0.2); Basophils % (A) 0 %; Eosinophils # (A) 0.1 k/uL (0-0.7); Eosinophils % (A) 1 %; HCT 28.2 % (39.0-53.0); HGB 7.7 gm/dL (13.0-17.5); Hypochromasia Marked; Lymphocytes # (A) 2.2 k/uL (1.0-4.8); Lymphocytes % (A) 17 %; MCH 25.3 pg (25.0-35.0); MCHC 27.4 g/dL (31.0-37.0); Mean Platelet Volume 8.5; Monocytes # (A) 0.5 k/uL (0-1.0); Monocytes % (A) 4 %; Neutrophils # (A) 10.3 k/uL (1.3-7.7); Neutrophils % (A) 77 %; Platelet Count 423 k/uL (150-450); RBC 3.06 m/uL (4.30-5.90); WBC 13.4 k/uL (3.8-10.6)
[2019-12-25] MEDS ORDERED: ACETAMINOPHEN TAB 325 MG TAB PO PRN (21:00)
[2019-12-25] MEDS ORDERED: NALOXONE 0.4 MG/ML 1 ML VIAL IV PRN (21:00)
[2019-12-25 21:03] LABS: MCV 92.4 fL (80.0-100.0)
[2019-12-25 21:17] LABS: Creatine Kinase MB 5.5 ng/mL (0.0-2.4)
[2019-12-25 21:21] LABS: Troponin I 0.035 ng/mL (0.000-0.034)
[2019-12-25] MEDS ORDERED: VANCOMYCIN 2,000 MG in SODIUM CHLORIDE 0.9% 500 ML 500 ML IVPB ONE (21:30)
[2019-12-25] MEDS ORDERED: CALCIUM GLUCONATE 1 GM in SODIUM CHLORIDE 0.9% 100 ML IVPB ONE (21:30)
[2019-12-25] MEDS ORDERED: DEXTROSE 5% IN WATER 1,000 ML with SODIUM BICARB (1 MEQ/ML) 150 ML IV ONE (21:30)
--- NOTE | 2019-12-25 21:35 | XR ---
EXAMINATION TYPE: XR chest 1V portable DATE OF EXAM: 12/25/2019 COMPARISON: Same-day radiograph at 2031 hours. HISTORY: Follow-up cardiac arrest/chest pain. TECHNIQUE: Single frontal view of the chest is obtained. FINDINGS: There is interval adjustment of the NG tube, now coursing below the diaphragm. The endotrac heal and left peak remain in place. There is unchanged bilateral diffuse mixed pulmonary opacities an d moderate right pleural effusion. No pneumothorax. Stable cardiomediastinal silhouette. Osseous stru ctures are unchanged. IMPRESSION: As above.
[2019-12-25] MEDS ORDERED: ASPIRIN 81 MG PO STA (22:16)
[2019-12-25] MEDS ORDERED: ASPIRIN 600 MG SUPP RECTAL STA (22:19)
[2019-12-25 22:42] LABS: Glucose,Whole Blood 227 mg/dL (75-99)
[2019-12-25 23:24] LABS: Glucose,Whole Blood 195 mg/dL (75-99)
[2019-12-25 23:28] VITALS: BP 119/70
[2019-12-26] MEDS ORDERED: IPRATROPIUM-ALBUTEROL 3 ML NEB INHALATION PRN (00:06)
[2019-12-26] MEDS: IPRATROPIUM-ALBUTEROL 3 ML NEB INHALATION SCH ×4 (00:10→11:51)
[2019-12-26 03:54] LABS: Basophils # (A) 0.1 k/uL (0-0.2); Basophils % (A) 1 %; Eosinophils # (A) 0.1 k/uL (0-0.7); Eosinophils % (A) 1 %; HCT 24.6 % (39.0-53.0); HGB 7.4 gm/dL (13.0-17.5); Hypochromasia Marked; Lymphocytes # (A) 0.8 k/uL (1.0-4.8); Lymphocytes % (A) 7 %; MCH 25.9 pg (25.0-35.0); Mean Platelet Volume 7.1; Monocytes # (A) 0.3 k/uL (0-1.0); Monocytes % (A) 3 %; Neutrophils # (A) 10.8 k/uL (1.3-7.7); Neutrophils % (A) 89 %; Platelet Count 257 k/uL (150-450); RBC 2.85 m/uL (4.30-5.90); RDW 15.3 % (11.5-15.5); WBC 12.2 k/uL (3.8-10.6)
[2019-12-26 04:04] LABS: Calcium 8.6 mg/dL (8.4-10.2)
[2019-12-26 04:08] VITALS: TEMP 97.7
[2019-12-26 04:16] LABS: ABG Base Excess 7.3 mmol/L; ABG HCO3 32 mmol/L (21-25); ABG Oxygen Saturation 95.4 % (94-97); ABG PCO2 55 mmHg (35-45); ABG PH 7.38 (7.35-7.45); ABG PO2 72 mmHg (83-108); ABG TCO2 34 mmol/L (19-24)
[2019-12-26 04:23] LABS: MCV 86.3 fL (80.0-100.0)
[2019-12-26 06:40] LABS: Glucose,Whole Blood 299 mg/dL (75-99)
[2019-12-26] MEDS ORDERED: PIPERACILLIN-TAZOBACTAM 3.375 GM in SODIUM CHLORIDE 0.9% 100 ML IVPB SCH (08:00)
--- NOTE | 2019-12-26 08:30 | XR ---
EXAMINATION TYPE: XR chest 1V portable DATE OF EXAM: 12/26/2019 CLINICAL HISTORY: Tube placement. TECHNIQUE: Portable semiupright view of the chest. COMPARISON: 12/25/2019 chest radiograph FINDINGS: Endotracheal tube distal tip just below the level of the clavicles. Left PICC distal tip o cooper the superior vena cava. Enteric tube over the left upper quadrant with nonvisualization of the di stal tip, with side-port likely near the level of the GE junction. Redemonstrated moderate right and small left pleural effusions. Mildly improved aeration of the bilateral lungs with persistent pulmona ry edema. The cardiomediastinal silhouette is unchanged. No pneumothorax seen. IMPRESSION: Mildly improved aeration of the bilateral lungs with persistent pulmonary edema, and moderate right a nd small left pleural effusions.
--- NOTE | 2019-12-26 08:39 | CONS ---
CONSULTATION Apparently this is a gentleman who has been in the hospital for a while and yesterday evening he was discharged to go to [facility] but en route, he developed a cardiac arrest and was brought back into the hospital. He had a down time of nearly 20 minutes. Details of which are not available to me at this time. However, on arrival, his potassium level was high and EKG revealed an IVCD type picture. The exact precipitating factor for his cardiac arrest was unclear. Apparently he was discharged and was taking him to [facility]. They were 2-3 miles from the hospital on the way to [facility] when he became unresponsive, bradycardic into the 20s and then became asystolic. CPR was initiated for 20 minutes and brought into the emergency room. Two rounds of epinephrine were given. However, on looking at the laboratory data, his potassium was 6.0 and there was a significant acidosis with a pH of 7.01. At this time, the EKG has normalized. The QRS is narrow. His acidosis has been corrected, but he remains unresponsive. I will obtain a repeat echocardiogram and also get some troponin levels. It is quite possible troponin will be elevated as a result of his cardiac arrest and CPR also. The patient's other comorbid conditions include a cervical spine surgery with abscess and has had a PICC line. Apparently on October 30, he underwent anterior cervical decompression, fusion, C6 to T1 and he was discharged to extended care facility after developing an epidural abscess in the cervical spine area with a PICC line. He came back to the hospital with altered mentation, which was his main issue. There was issues with hypoxia and he had a lot of respiratory issues. However, his LV function remained normal in the 55-60 percent range with mild mitral and tricuspid regurgitation. Please refer to the detailed notes in the chart that are available. His laboratory data suggests that his pH has been corrected to 7.38. He still remains relatively hypoxic. Electrolytes have improved. Potassium is down to 4.0, creatinine is 2.57. It appears that patient has some underlying kidney disease as well. However, about a month ago his creatinine was pretty much in the normal range. PHYSICAL EXAMINATION: On examination, blood pressure is 150/70, pulse rate is about 90, sinus. HEENT: Limited exam was unremarkable. Patient is intubated. Neck exam was deferred. S1, S2 heard normally. LUNGS: Bilateral respiratory assisted air entry. ABDOMEN: Soft. Lower extremities revealed diminished pulses. Central nervous system assessment was not performed. EKG revealed a sinus mechanism this morning with a narrow QRS. No significant ST-T changes. EKG at about 8:30 pm last night revealed wide QRS with a right bundle suggestive of a hyperkalemia related QRS widening. IMPRESSION: 1. Status post cardiac arrest, probably mediated by acidosis and hyperkalemia. 2. History of cervical spine surgery with abscess on a PICC line. 3. The patient has multiple respiratory issues with a chronic respiratory insufficiency, obstructive sleep apnea, BiPAP with a history of smoking and multiple respiratory problems. His LV systolic function remained basically normal. RECOMMENDATIONS: I will recommend that we obtain a repeat echo and also start him on metoprolol tartrate 25 mg b.i.d., discontinue the Levophed drip and obtain some troponin levels as well. Prognosis remains poor given the long down time. ANITA / ALEXEI: [id number] /
[2019-12-26] MEDS ORDERED: CHLORHEXIDINE GLUCONATE 15 ML CUP MUCOUS MEM SCH (09:00)
[2019-12-26 11:16] LABS: ABG Base Excess 7.9 mmol/L; ABG HCO3 33 mmol/L (21-25); ABG Oxygen Saturation 93.4 % (94-97); ABG PCO2 57 mmHg (35-45); ABG PH 7.37 (7.35-7.45); ABG PO2 68 mmHg (83-108); ABG TCO2 35 mmol/L (19-24); Allen Test Performed? Yes
[2019-12-26 11:39] LABS: ABG Base Excess 6.3 mmol/L; ABG HCO3 34 mmol/L (21-25); ABG Oxygen Saturation 83.8 % (94-97); ABG PO2 61 mmHg (83-108); ABG TCO2 37 mmol/L (19-24); Allen Test Performed? Yes
[2019-12-26] MEDS ORDERED: INSULIN ASPART (NovoLOG) 100 UNIT/ML VIAL SQ SCH (12:00)
[2019-12-26 12:50] LABS: ABG PCO2 89 mmHg (35-45)
[2019-12-26 12:57] VITALS: PULSE 0; RESP 0
--- NOTE | 2019-12-26 13:18 | CONS ---
CONSULTATION PULMONARY/CRITICAL CARE CONSULTATION: DATE OF CONSULTATION: 12/26/2019 HISTORY OF PRESENT ILLNESS: This is a patient who apparently was brought into the ER by EMS. The patient was being transferred from the hospital where he was discharged from yesterday to one of the local nursing homes. I believe [facility] on the [facility]. The patient was 2 or 3 miles from the hospital on the way to [facility] when the patient became unresponsive. The patient was noted to be bradycardic with heart rate down in the 20s. Then, the patient became asystolic. CPR was initiated. They apparently resuscitated him for about 20 minutes or so prior to coming to the emergency room. He was further resuscitated in the emergency room. He received 2 rounds of epinephrine by EMS. A Keenan tube was placed. He apparently had another 25 minutes or so of resuscitation in the emergency department. He had a total of 45 minutes of resuscitation according to the nurse. Again, he was discharged on December 24 and readmitted on December 24. Currently, the patient is on the volume assist-control mode rate of 20, tidal volume 450, FiO2 of 60%, PEEP of 5. Blood gases show pO2 of 72, pCO2 of 55, pH 7.38. He is on norepinephrine at 9 mcg/minute and a saline IV at 75 mL an hour. The patient's neurologic examination by myself revealed the patient was not responsive to verbal or painful stimuli. His pupils were mid plane and unreactive. He did not have a gag reflex. He did not have a corneal reflex. It was not triggering the ventilator. The patient also had absent doll's eyes reflex. Anyway, we did a formal apneic oxygenation test on the patient. His arterial blood gases initially were PO2 of 68, pCO2 of 57, and a pH of 7.37. After 10 minutes of T-piece respirations on 100%, the PO2 was 61. The pCO2 went up to 89 and a pH dropped to 7.20. That was a 32 mm per mercury increase and the PaCO2. There were no respirations for 10 minutes. Technically, then, the patient is considered to be brain . The family was notified and also we asked him about [facility] and they were willing to proceed in that direction. In the emergency room, central line and art line was placed by the ER physician. CURRENT MEDICATIONS: long-term medications were to be fenofibrate, Lopressor, Singulair, Lamictal, multivitamins, amlodipine, vitamin D2, albuterol inhaler, Cymbalta, Voltaren, Bentyl, insulin, famotidine, iron, Mylanta, milk of magnesia, Zofran, Pravachol, and Flomax. Other medications included Flexeril, daptomycin, fluconazole, gabapentin, insulin, DuoNeb, Seroquel, and Tramadol. ALLERGIES: HALDOL. MEDICAL HISTORY: Reviewed. It is positive for asthma/COPD, diabetes, GERD, hypertension, osteoarthritis, pneumonia, sleep apnea syndrome, epidural abscess, cervical fracture, diabetic neuropathy, osteomyelitis, right scapular fracture, chronic pancreatitis, pancreatic pseudocyst, fatty liver, and previous history of alcohol abuse. He has also had a previous history of MRSA infection back in November 2008. SURGICAL HISTORY: Includes cholecystectomy, tonsillectomy, cervical surgery with recent revision anterior cervical corpectomy C7 and removal of hardware, incision and drainage. In addition, he has had spinal fusion at L4 and 5, surgery for pancreatic pseudocyst and EGD. SOCIAL HISTORY: Positive for current and ongoing tobacco use. He apparently does not drink alcohol. Has used opiates in the past. FAMILY HISTORY: Positive for mother with hypertension and a father who apparently had no major medical problems. REVIEW OF SYSTEMS: Cannot be obtained as the patient is in a vegetative state. PHYSICAL EXAMINATION: Current vital signs are reviewed. Temperature is 98.6, heart rate 95, respiratory rate 20. Blood pressure 93/46, saturations are 96%. GENERAL: Currently unresponsive. NEUROLOGIC: Neurologic examination was previously elucidated. HEENT: Examination is essentially unremarkable. There is an orally placed endotracheal tube and NG tube. NECK: Supple. CARDIOVASCULAR examination reveals regular rhythm and rate. Heart rate 95. Heart sounds distant. LUNGS: A few scattered rhonchi. No wheezes. ABDOMEN: Soft. Bowel sounds are not noted. EXTREMITIES are intact. No significant edema. No cyanosis or clubbing. SKIN: Without rash. NEUROLOGIC: Examination is previously delineated. Shows the patient to be unresponsive to verbal or pain stimuli, he lacked corneal reflex, and gag reflex. He is not triggering the ventilator. Doll's eyes reflex is absent. Ocular vestibular reflex not checked. We did do an apnea oxygenation test as previously elucidated and the patient did not take a breath for 10 minutes and had a significant rise in CO2. LABS: Reviewed. White count 12.2, hemoglobin 7.4, hematocrit 24.6, platelet count 307,000, blood gases have been noted. PO2 72, pCO2 55, pH 7.38. Sodium 135, potassium 4, chloride 97, CO2 34, anion gap is 4. BUN and creatinine were 40 and 2.57. Lactic acid initially was 4.2. Repeat 1.2. Troponin was 0.035. Microbiology is currently negative or pending. Chest x-ray shows evidence of mild fluid overload and small left pleural effusion. IMAGING: Brain CT not done. Medications are reviewed. Currently, he is getting Tylenol, Peridex, updrafts with DuoNeb, Narcan, Zosyn, and vancomycin. ASSESSMENT: 1. Status post cardiopulmonary arrest in transit from the hospital to the group home, with 45 minutes of resuscitation with an eventual return of spontaneous circulation. 2. Neurologic examination which suggests brain as elucidated above. 3. Altered mental status and metabolic encephalopathy, which may relate to underlying sedatives and hypnotics. 4. Acute on chronic hypoxemic respiratory failure secondary to aspiration pneumonia. 5. Recent hospitalization for cervical spine epidural abscess, currently on daptomycin. 6. History of cervical myelopathy, status post surgical revision of C6 through T1 and corpectomy of C7 due to trauma. 7. Acute kidney injury. 8. Sleep apnea syndrome. 9. History of chronic tobacco use. 10.Chronic obstructive pulmonary disease. 11.Diabetes mellitus. 12.Hypertension. 13.History of pancreatitis and pancreatic pseudocyst. 14.History of anxiety and depression. PLAN: Today I had the sad job of talking to the family including the ex-, 2 sons and a daughter, and some other family members. They understand that the situation is grave. I told him we would do an apnea oxygenation test. We would also [facility] involved. The patient's oxygenation test suggested brain . The patient will be turned over to [facility]. Apparently the family is willing to donate organs if possible. Medications are reviewed. Additional recommendations and suggestions are forthcoming. I will DC the vancomycin. Keep the patient on the Zosyn. Prognosis is obviously extremely poor. MMODL / IJN: [id number] /
--- NOTE | 2019-12-26 15:56 | P.DS ---
Providers Date of admission: 12/25/19 21:03 Attending physician: Sunshine Contreras Consults: 12/25/19 20:59 Consult Physician Routine Consulting Provider: Gerald Magallon Consult Reason/Comments: icu patient Do you want consulting provider notified?: Already Contacted 12/25/19 21:00 Consult Physician Routine Consulting Provider: Tatyana Reece Consult Reason/Comments: cardiac arrest Do you want consulting provider notified?: Yes Primary care physician: Jordon Wood Hospital Course: His operative HPI for further details patient , patient has absent brainstem reflexes after CPR. Patient was terminally weaned did Patient Condition at Discharge: Critical Plan - Discharge Summary Discharge Rx Participant: No New Discharge Prescriptions: No Action Fenofibrate Nanocrystallized [Fenofibrate] 145 mg PO DAILY@0900 Montelukast [Singulair] 10 mg PO HS@2100 Metoprolol Tartrate [Lopressor] 25 mg PO BID@0900,2100 lamoTRIgine 200 mg PO BID@0900,2100 amLODIPine [Norvasc] 5 mg PO DAILY@0900 Multivitamins, Thera [Multivitamin (formulary)] 1 tab PO DAILY@0900 Ergocalciferol [Vitamin D2 (DRISDOL)] 50,000 unit PO SA Albuterol Sulfate [Ventolin HFA] 2 puff INHALATION RT-Q4H PRN PRN Reason: Shortness Of Breath Diclofenac Sodium Gel [Voltaren Gel] 2 gm TOPICAL QID PRN PRN Reason: ARMS Dicyclomine [Bentyl] 20 mg PO Q6H PRN PRN Reason: CRAMPS DULoxetine HCL [Cymbalta] 30 mg PO BID@0900,2100 INSULIN ASPART (NovoLOG) [NovoLOG (formulary)] See Protocol SQ ACHS Ondansetron [Zofran] 4 mg PO Q12HR PRN PRN Reason: Nausea Mag Hydrox/Aluminum Hyd/Simeth [Mylanta Maximum Strength Liq] 30 ml PO Q4H PRN PRN Reason: Constipation Magnesium Hydroxide [Milk of Magnesia] 2,400 mg PO DAILY PRN PRN Reason: Constipation Famotidine [Pepcid] 20 mg PO BID@0900,2100 Ferrous Sulfate [Iron (65 MG Elemental)] 325 mg PO BID@0800,2100 Tamsulosin [Flomax] 0.4 mg PO HS@2100 Pravastatin Sodium [Pravachol] 40 mg PO HS@2100 DAPTOmycin [Cubicin] 600 mg IVPB Q24HR #14 vial Fluconazole [Diflucan] 100 mg PO DAILY #7 tab Ipratropium-Albuterol Nebulize [Duoneb 0.5 mg-3 mg/3 ml Soln] 3 ml INHALATION QID ml Insulin Glargine,Hum.rec.anlog [Basaglar Kwikpen U-100] 15 unit SQ HS@2100 #0 Cyclobenzaprine [Flexeril] 5 mg PO TID@0600,1400,2200 PRN #1 PRN Reason: Spasms Gabapentin [Neurontin] 300 mg PO Q12H #6 cap QUEtiapine FUMARATE [SEROquel] 200 mg PO HS@2100 #3 tab traMADol HCL [Ultram] 50 mg PO Q4HR PRN 3 Days #18 tab MDD 8/DAY PRN Reason: Pain Discharge Medication List Fenofibrate Nanocrystallized [Fenofibrate] 145 mg PO DAILY@89908/07/13 [History] Metoprolol Tartrate [Lopressor] 25 mg PO BID@09,209908/07/13 [History] Montelukast [Singulair] 10 mg PO HS@209908/07/13 [History] lamoTRIgine 200 mg PO BID@0900,209910/01/16 [History] Multivitamins, Thera [Multivitamin (formulary)] 1 tab PO DAILY@0900 10/22/16 [History] amLODIPine [Norvasc] 5 mg PO DAILY@89910/22/16 [History] Ergocalciferol [Vitamin D2 (DRISDOL)] 50,000 unit PO SA 10/31/18 [History] Albuterol Sulfate [Ventolin HFA] 2 puff INHALATION RT-Q4H PRN 09/02/19 [History] DULoxetine HCL [Cymbalta] 30 mg PO BID@00,209909/02/19 [History] Diclofenac Sodium Gel [Voltaren Gel] 2 gm TOPICAL QID PRN 09/02/19 [History] Dicyclomine [Bentyl] 20 mg PO Q6H PRN 09/02/19 [History] INSULIN ASPART (NovoLOG) [NovoLOG (formulary)] See Protocol SQ ACHS 09/02/19 [History] Famotidine [Pepcid] 20 mg PO BID@0900,2100 12/09/19 [History] Ferrous Sulfate [Iron (65 MG Elemental)] 325 mg PO BID@0800,2100 12/09/19 [History] Mag Hydrox/Aluminum Hyd/Simeth [Mylanta Maximum Strength Liq] 30 ml PO Q4H PRN 12/09/19 [History] Magnesium Hydroxide [Milk of Magnesia] 2,400 mg PO DAILY PRN 12/09/19 [History] Ondansetron [Zofran] 4 mg PO Q12HR PRN 12/09/19 [History] Pravastatin Sodium [Pravachol] 40 mg PO HS@2100 12/09/19 [History] Tamsulosin [Flomax] 0.4 mg PO HS@2100 12/09/19 [History] Cyclobenzaprine [Flexeril] 5 mg PO TID@0600,1400,2200 PRN #1 12/25/19 [Rx] DAPTOmycin [Cubicin] 600 mg IVPB Q24HR #14 vial 12/25/19 [Rx] Fluconazole [Diflucan] 100 mg PO DAILY #7 tab 12/25/19 [Rx] Gabapentin [Neurontin] 300 mg PO Q12H #6 cap 12/25/19 [Rx] Insulin Glargine,Hum.rec.anlog [Basaglar Kwikpen U-100] 15 unit SQ HS@2100 #0 12/25/19 [Rx] Ipratropium-Albuterol Nebulize [Duoneb 0.5 mg-3 mg/3 ml Soln] 3 ml INHALATION QID ml 12/25/19 [Rx] QUEtiapine FUMARATE [SEROquel] 200 mg PO HS@2100 #3 tab 12/25/19 [Rx] traMADol HCL [Ultram] 50 mg PO Q4HR PRN 3 Days #18 tab MDD 8/DAY 12/25/19 [Rx] Follow up Appointment(s)/Referral(s): Jordon Wood MD [Primary Care Provider] - 1-2 days - Preliminary Cause of Preliminary Cause of : Possible cardiac arrhythmia
--- NOTE | 2019-12-26 15:56 | P.HPIM ---
History of Present Illness This is a 54-year-old male was admitted after cardio pulmonary arrest. Patient became unresponsive and route to home from a subacute rehabitation. Severe is emaciated and patient was treated for 20 minutes. Patient had asystole patient was subsequently intubated and brought to ER. Patient had 2 doses of epinephrine by EMS patient had 25 more minutes of resuscitation ER total of 45 minutes of resuscitation. Patient was subsequently put on assist-control ventilation patient pulses returned patient is on very high-dose of nor epinephrine. Patient to pupils were unreactive doesn't have a gag reflex or corneal reflex patient is not breathing over the ventilator patient clinically appeared to have significant anoxic brain injury after which plan was made to terminally extubate him. Family wanted a gift of life because of that reason patient was continued on ventilatory support but patient blood pressure dropped requiring very high-dose of norepinephrine and the chance of him surviving even on ventilator was extremely low patient was terminally weaned patient subsequently . Review of Systems Unable to obtain Past Medical History Past Medical History: Asthma, COPD, Diabetes Mellitus, GERD/Reflux, Hypertension, Musculoskeletal Disorder, Osteoarthritis (OA), Pneumonia, Sleep Apnea/CPAP/BIPAP Additional Past Medical History / Comment(s): Pt recently admitted to [facility] on 10/30/19 with abscess in epidural space cervical spine/failed hardware with surgery/fall with cervical fracture. 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, R scapular fracture, per past meical record-thoracic lesion/pulmonary nodules but pt not sure about this, chronic pancreatitis/pancreatic pseudocyst, hepatic steatosis, past ETOH abuse, History of Any Multi-Drug Resistant Organisms: MRSA Date of last positivie culture/infection: 11/03/2008 MDRO Source:: spine Past Surgical History: Back Surgery, Cholecystectomy, Orthopedic Surgery, Tonsillectomy Additional Past Surgical History / Comment(s): Cervical surgery with recent revision anterior cervical corpectomy C7/removal of hardware and I&D, spinal fusion at L4 and L5, pancreatic surgery for pseudocyst w/stent-stent since removed, EGD Past Anesthesia/Blood Transfusion Reactions: No Reported Reaction Smoking Status: Current every day smoker - Past Family History Mother Family Medical History: Hypertension Additional Family Medical History / Comment(s): Pt states mother had no health problems. Father Family Medical History: No Reported History Additional Family Medical History / Comment(s): pt stated his father is - had no medicals problems and of natural causes. Medications and Allergies Home Medications Medication Instructions Recorded Confirmed Type Fenofibrate Nanocrystallized 145 mg PO DAILY@0900 08/07/13 12/25/19 History [Fenofibrate] Metoprolol Tartrate [Lopressor] 25 mg PO BID@09,209908/07/13 12/25/19 History Montelukast [Singulair] 10 mg PO HS@209908/07/13 12/25/19 History lamoTRIgine 200 mg PO BID@0900,209910/01/16 12/25/19 History Multivitamins, Thera [Multivitamin 1 tab PO DAILY@0910/22/16 12/25/19 History (formulary)] amLODIPine [Norvasc] 5 mg PO DAILY@0910/22/16 12/25/19 History Ergocalciferol [Vitamin D2 50,000 unit PO SA 10/31/18 12/25/19 History (DRISDOL)] Albuterol Sulfate [Ventolin HFA] 2 puff INHALATION RT-Q4H PRN 09/02/19 12/25/19 History DULoxetine HCL [Cymbalta] 30 mg PO BID@0900,209909/02/19 12/25/19 History Diclofenac Sodium Gel [Voltaren 2 gm TOPICAL QID PRN 09/02/19 12/25/19 History Gel] Dicyclomine [Bentyl] 20 mg PO Q6H PRN 09/02/19 12/25/19 History INSULIN ASPART (NovoLOG) [NovoLOG See Protocol SQ ACHS 09/02/19 12/25/19 History (formulary)] Famotidine [Pepcid] 20 mg PO BID@0900,209912/09/19 12/25/19 History Ferrous Sulfate [Iron (65 MG 325 mg PO BID@0800,209912/09/19 12/25/19 History Elemental)] Mag Hydrox/Aluminum Hyd/Simeth 30 ml PO Q4H PRN 12/09/19 12/25/19 History [Mylanta Maximum Strength Liq] Magnesium Hydroxide [Milk of 2,400 mg PO DAILY PRN 12/09/19 12/25/19 History Magnesia] Ondansetron [Zofran] 4 mg PO Q12HR PRN 12/09/19 12/25/19 History Pravastatin Sodium [Pravachol] 40 mg PO HS@2100 12/09/19 12/25/19 History Tamsulosin [Flomax] 0.4 mg PO HS@2100 12/09/19 12/25/19 History Cyclobenzaprine [Flexeril] 5 mg PO TID@0600,1400,2200 PRN #1 12/25/19 12/25/19 Rx DAPTOmycin [Cubicin] 600 mg IVPB Q24HR #14 vial 12/25/19 12/25/19 Rx Fluconazole [Diflucan] 100 mg PO DAILY #7 tab 12/25/19 12/25/19 Rx Gabapentin [Neurontin] 300 mg PO Q12H #6 cap 12/25/19 12/25/19 Rx Insulin Glargine,Hum.rec.anlog 15 unit SQ HS@2100 #0 12/25/19 12/25/19 Rx [Basaglar Kwikpen U-100] Ipratropium-Albuterol Nebulize 3 ml INHALATION QID ml 12/25/19 12/25/19 Rx [Duoneb 0.5 mg-3 mg/3 ml Soln] QUEtiapine FUMARATE [SEROquel] 200 mg PO HS@2100 #3 tab 12/25/19 12/25/19 Rx traMADol HCL [Ultram] 50 mg PO Q4HR PRN 3 Days #18 tab 12/25/19 12/25/19 Rx MDD 8/DAY Allergies Allergy/AdvReac Type Severity Reaction Status Date / Time haloperidol [From Haldol] AdvReac Hallucinati Verified 12/25/19 19:47 ons haloperidol lactate AdvReac Hallucinati Verified 12/25/19 19:47 [From Haldol] ons Physical Exam Vitals: Vital Signs Temp Pulse Resp BP Pulse Ox 12/26/19 12:50 0 L 0 L 0 L 12/26/19 12:45 58 L 14 25 L 12/26/19 12:40 109 H 20 77 L 12/26/19 12:35 111 H 27 H 80 L 12/26/19 12:30 112 H 43 H 83 L 12/26/19 12:25 112 H 20 89 L 12/26/19 12:20 110 H 20 88 L 12/26/19 12:15 109 H 20 87 L 12/26/19 12:10 109 H 20 90 L 12/26/19 12:05 108 H 20 91 L 12/26/19 12:00 108 H 20 91 L 12/26/19 11:55 107 H 20 92 L 12/26/19 11:53 95 12/26/19 11:50 102 H 22 89 L 12/26/19 11:45 102 H 20 90 L 12/26/19 11:41 101 H 20 96 12/26/19 11:40 101 H 20 96 12/26/19 11:39 100 20 95 12/26/19 11:38 101 H 20 94 L 12/26/19 11:37 101 H 20 92 L 12/26/19 11:36 99 0 L 85 L 12/26/19 11:35 99 0 L 85 L 12/26/19 11:34 99 0 L 87 L 12/26/19 11:33 99 0 L 87 L 12/26/19 11:32 99 0 L 93 L 12/26/19 11:31 99 0 L 95 12/26/19 11:30 100 0 L 99 12/26/19 11:29 101 H 0 L 99 12/26/19 11:28 100 0 L 99 12/26/19 11:27 100 0 L 99 12/26/19 11:26 101 H 0 L 99 12/26/19 11:25 101 H 20 99 12/26/19 11:24 100 20 99 12/26/19 11:23 100 20 99 12/26/19 11:22 100 20 99 12/26/19 11:21 99 20 99 12/26/19 11:20 100 20 99 12/26/19 11:19 100 20 99 12/26/19 11:18 100 20 99 12/26/19 11:17 100 20 99 12/26/19 11:16 100 20 99 12/26/19 11:15 101 H 20 98 12/26/19 11:14 101 H 20 93 L 12/26/19 11:13 101 H 20 94 L 12/26/19 11:12 101 H 20 94 L 12/26/19 11:11 101 H 20 94 L 12/26/19 11:10 101 H 20 94 L 12/26/19 11:09 101 H 20 93 L 12/26/19 11:08 101 H 20 93 L 12/26/19 11:07 101 H 20 94 L 12/26/19 11:06 101 H 20 94 L 12/26/19 11:05 101 H 20 94 L 12/26/19 11:04 101 H 20 94 L 12/26/19 11:03 101 H 20 94 L 12/26/19 11:02 101 H 20 94 L 12/26/19 11:01 101 H 20 94 L 12/26/19 11:00 101 H 20 94 L 12/26/19 10:59 101 H 20 94 L 12/26/19 10:58 101 H 20 94 L 12/26/19 10:57 101 H 20 94 L 12/26/19 10:56 101 H 20 94 L 12/26/19 10:55 101 H 20 94 L 12/26/19 10:54 101 H 20 94 L 12/26/19 10:53 101 H 20 94 L 12/26/19 10:52 101 H 20 94 L 12/26/19 10:45 101 H 20 94 L 12/26/19 10:30 101 H 20 94 L 12/26/19 10:15 101 H 20 94 L 12/26/19 10:00 100 20 94 L 12/26/19 09:45 101 H 20 94 L 12/26/19 09:30 100 20 94 L 12/26/19 09:15 100 20 93 L 12/26/19 09:00 98 20 93 L 12/26/19 08:45 98 20 93 L 12/26/19 08:30 96 20 93 L 12/26/19 08:15 95 20 94 L 12/26/19 08:00 94 20 94 L 12/26/19 07:45 96 20 95 12/26/19 07:33 93 12/26/19 07:30 95 20 94 L 12/26/19 07:15 91 20 95 12/26/19 07:00 90 20 95 12/26/19 06:45 90 20 95 12/26/19 06:30 90 20 95 12/26/19 06:15 91 20 95 12/26/19 06:00 91 20 95 12/26/19 05:45 92 20 95 12/26/19 05:30 90 20 95 12/26/19 05:15 91 20 95 12/26/19 05:00 93 20 95 12/26/19 04:45 95 20 95 12/26/19 04:30 95 20 95 12/26/19 04:15 96 20 94 L 12/26/19 04:00 97.7 F 96 20 94 L 12/26/19 03:50 97 20 94 L 12/26/19 03:48 97 12/26/19 03:40 97 20 96 12/26/19 03:39 97 12/26/19 03:30 96 20 98 12/26/19 03:20 97 20 98 12/26/19 03:10 98 20 97 12/26/19 03:00 97 20 97 12/26/19 02:50 97 28 H 98 12/26/19 02:40 96 20 97 12/26/19 02:30 97 20 97 12/26/19 02:20 97 21 97 12/26/19 02:10 98 20 97 12/26/19 02:00 98 20 97 12/26/19 01:50 99 20 97 12/26/19 01:40 99 20 97 12/26/19 01:30 100 5 L 99 12/26/19 01:20 101 H 20 99 12/26/19 01:10 101 H 20 99 12/26/19 01:00 101 H 20 99 12/26/19 00:50 101 H 20 99 12/26/19 00:40 102 H 20 99 12/26/19 00:30 103 H 20 99 12/26/19 00:20 104 H 15 98 12/26/19 00:18 103 H 12/26/19 00:14 102 H 20 98 12/26/19 00:13 102 H 12/26/19 00:10 101 H 20 98 12/26/19 00:00 104 H 9 L 96 12/25/19 23:50 105 H 20 95 12/25/19 23:40 105 H 20 94 L 12/25/19 23:30 104 H 6 L 95 12/25/19 23:22 97.8 F 105 H 10 L 98 12/25/19 23:20 97.9 F 104 H 16 119/70 97 12/25/19 22:19 105 H 16 92/47 97 12/25/19 22:00 109 H 16 132/69 96 12/25/19 20:59 97.8 F 105 H 16 97/47 96 12/25/19 20:48 111 H 16 123/74 97 12/25/19 20:18 131 H 20 89/67 87 L 12/25/19 20:05 94 20 87/50 98 Intake and Output 12/26/19 12/26/19 12/26/19 06:59 14:59 22:59 Intake Total 1227.040 583.255 Output Total 385 105 Balance 842.040 478.255 Intake: IV 1200 525 0.9 NACL 375 Dextrose 5% in Water 1, 1200 150 000 ml @ 150 mls/hr IV . Q7H40M ONE with Sodium Bicarb (1 Meq/ml) 150 ml Rx#:[id number] Intake, IV Titration 27.040 58.255 Amount Norepinephrine 32 mg In 27. 58.255 Sodium Chloride 0.9% 218 ml @ 0.05 MCG/KG/MIN 2. 977 mls/hr IV .Q24H ONE Rx#:[id number] Output: Urine 385 105 Other: Voiding Method Indwelling Catheter Indwelling Catheter Weight 103.6 kg ABP, PAP, CO, CI - Last 8 Hours Arterial Blood Pressure 0/0 Arterial Blood Pressure 22/13 Arterial Blood Pressure 47/24 Arterial Blood Pressure 50/26 Arterial Blood Pressure 57/28 Arterial Blood Pressure 84/39 Arterial Blood Pressure 93/44 Arterial Blood Pressure 109/53 Arterial Blood Pressure 126/61 Arterial Blood Pressure 126/60 Arterial Blood Pressure 127/61 Arterial Blood Pressure 126/60 Arterial Blood Pressure 81/42 Arterial Blood Pressure 82/43 Arterial Blood Pressure 93/46 Arterial Blood Pressure 95/46 Arterial Blood Pressure 96/45 Arterial Blood Pressure 100/46 Arterial Blood Pressure 100/46 Arterial Blood Pressure 93/42 Arterial Blood Pressure 93/42 Arterial Blood Pressure 97/45 Arterial Blood Pressure 97/45 Arterial Blood Pressure 107/52 Arterial Blood Pressure 105/52 Arterial Blood Pressure 110/56 Arterial Blood Pressure 105/53 Arterial Blood Pressure 102/51 Arterial Blood Pressure 102/51 Arterial Blood Pressure 106/54 Arterial Blood Pressure 105/54 Arterial Blood Pressure 99/50 Arterial Blood Pressure 100/50 Arterial Blood Pressure 100/52 Arterial Blood Pressure 96/49 Arterial Blood Pressure 101/51 Arterial Blood Pressure 103/51 Arterial Blood Pressure 106/54 Arterial Blood Pressure 108/56 Arterial Blood Pressure 94/47 Arterial Blood Pressure 99/49 Arterial Blood Pressure 100/51 Arterial Blood Pressure 101/53 Arterial Blood Pressure 94/46 Arterial Blood Pressure 104/52 Arterial Blood Pressure 103/51 Arterial Blood Pressure 102/51 Arterial Blood Pressure 100/50 Arterial Blood Pressure 101/50 Arterial Blood Pressure 104/52 Arterial Blood Pressure 97/50 Arterial Blood Pressure 100/50 Arterial Blood Pressure 104/52 Arterial Blood Pressure 104/52 Arterial Blood Pressure 98/49 Arterial Blood Pressure 101/51 Arterial Blood Pressure 104/52 Arterial Blood Pressure 105/53 Arterial Blood Pressure 98/50 Arterial Blood Pressure 102/51 Arterial Blood Pressure 108/54 Arterial Blood Pressure 107/54 Arterial Blood Pressure 102/50 Arterial Blood Pressure 103/51 Arterial Blood Pressure 104/53 Arterial Blood Pressure 111/55 Arterial Blood Pressure 111/55 Arterial Blood Pressure 111/55 Arterial Blood Pressure 113/56 Arterial Blood Pressure 115/57 Arterial Blood Pressure 111/53 Arterial Blood Pressure 122/57 Arterial Blood Pressure 126/60 Arterial Blood Pressure 130/61 Arterial Blood Pressure 130/60 Arterial Blood Pressure 129/60 Before his expiration PHYSICAL EXAMINATION: GENERAL: Unresponsive on ventilator support, it was nonreactive CARDIOVASCULAR: S1 and S2 present. No murmurs, rubs, or gallops. PULMscattered rhonchi ABDOMEN: Soft. MUSCULOSKELETAL: No joint swelling or deformity. EXTREMITIES: No cyanosis, clubbing, or pedal edema. NEUROLOGICAL: absent brainstem reflexes gag reflex corneal reflex SKIN: No rashes. Results CBC & Chem 7: 12/26/19 03:35 12/26/19 03:35 Labs: Abnormal Lab Results - Last 24 Hours (Table) 12/25/19 12/25/19 12/25/19 Range/Units 19:41 19:45 19:45 WBC 13.4 H (3.8-10.6) k/uL RBC 3.06 L (4.30-5.90) m/uL Hgb 7.7 L (13.0-17.5) gm/dL Hct 28.2 L (39.0-53.0) % MCHC 27.4 L (31.0-37.0) g/dL Neutrophils # 10.3 H (1.3-7.7) k/uL Lymphocytes # (1.0-4.8) k/uL PT 14.4 H (9.0-12.0) sec INR 1.4 H (<1.2) APTT 35.1 H (22.0-30.0) sec ABG pH (7.35-7.45) ABG pCO2 (35-45) mmHg ABG pO2 (83-108) mmHg ABG HCO3 (21-25) mmol/L ABG Total CO2 (19-24) mmol/L ABG O2 Saturation (94-97) % Sodium (137-145) mmol/L Potassium (3.5-5.1) mmol/L Chloride (98-107) mmol/L Carbon Dioxide (22-30) mmol/L BUN (9-20) mg/dL Creatinine (0.66-1.25) mg/dL Glucose (74-99) mg/dL POC Glucose (mg/dL) 268 H (75-99) mg/dL Plasma Lactic Acid Jerrell (0.7-2.0) mmol/L Magnesium (1.6-2.3) mg/dL AST (17-59) U/L ALT (4-49) U/L Alkaline Phosphatase (38-126) U/L Creatine Kinase (55-170) U/L CK-MB (CK-2) (0.0-2.4) ng/mL Troponin I (0.000-0.034) ng/mL Total Protein (6.3-8.2) g/dL Albumin (3.5-5.0) g/dL 12/25/19 12/25/19 12/25/19 Range/Units 19:45 19:45 20:36 WBC (3.8-10.6) k/uL RBC (4.30-5.90) m/uL Hgb (13.0-17.5) gm/dL Hct (39.0-53.0) % MCHC (31.0-37.0) g/dL Neutrophils # (1.3-7.7) k/uL Lymphocytes # (1.0-4.8) k/uL PT (9.0-12.0) sec INR (<1.2) APTT (22.0-30.0) sec ABG pH (7.35-7.45) ABG pCO2 (35-45) mmHg ABG pO2 (83-108) mmHg ABG HCO3 (21-25) mmol/L ABG Total CO2 (19-24) mmol/L ABG O2 Saturation (94-97) % Sodium 136 L (137-145) mmol/L Potassium 6.0 H (3.5-5.1) mmol/L Chloride (98-107) mmol/L Carbon Dioxide 21 L (22-30) mmol/L BUN 34 H (9-20) mg/dL Creatinine 2.46 H (0.66-1.25) mg/dL Glucose 192 H (74-99) mg/dL POC Glucose (mg/dL) (75-99) mg/dL Plasma Lactic Acid Jerrell 10.9 H* (0.7-2.0) mmol/L Magnesium 2.6 H (1.6-2.3) mg/dL AST 428 H (17-59) U/L ALT 90 H (4-49) U/L Alkaline Phosphatase 141 H (38-126) U/L Creatine Kinase 190 H (55-170) U/L CK-MB (CK-2) 5.5 H (0.0-2.4) ng/mL Troponin I 0.035 H* (0.000-0.034) ng/mL Total Protein 5.5 L (6.3-8.2) g/dL Albumin 2.6 L (3.5-5.0) g/dL 12/25/19 12/25/19 12/25/19 Range/Units 20:39 22:38 23:21 WBC (3.8-10.6) k/uL RBC (4.30-5.90) m/uL Hgb (13.0-17.5) gm/dL Hct (39.0-53.0) % MCHC (31.0-37.0) g/dL Neutrophils # (1.3-7.7) k/uL Lymphocytes # (1.0-4.8) k/uL PT (9.0-12.0) sec INR (<1.2) APTT (22.0-30.0) sec ABG pH 7.01 L* (7.35-7.45) ABG pCO2 79 H* (35-45) mmHg ABG pO2 119 H (83-108) mmHg ABG HCO3 20 L (21-25) mmol/L ABG Total CO2 (19-24) mmol/L ABG O2 Saturation (94-97) % Sodium (137-145) mmol/L Potassium (3.5-5.1) mmol/L Chloride (98-107) mmol/L Carbon Dioxide (22-30) mmol/L BUN (9-20) mg/dL Creatinine (0.66-1.25) mg/dL Glucose (74-99) mg/dL POC Glucose (mg/dL) 227 H 195 H (75-99) mg/dL Plasma Lactic Acid Jerrell (0.7-2.0) mmol/L Magnesium (1.6-2.3) mg/dL AST (17-59) U/L ALT (4-49) U/L Alkaline Phosphatase (38-126) U/L Creatine Kinase (55-170) U/L CK-MB (CK-2) (0.0-2.4) ng/mL Troponin I (0.000-0.034) ng/mL Total Protein (6.3-8.2) g/dL Albumin (3.5-5.0) g/dL 12/25/19 12/26/19 12/26/19 Range/Units 23:55 03:35 03:35 WBC 12.2 H (3.8-10.6) k/uL RBC 2.85 L (4.30-5.90) m/uL Hgb 7.4 L (13.0-17.5) gm/dL Hct 24.6 L (39.0-53.0) % MCHC 30.0 L (31.0-37.0) g/dL Neutrophils # 10.8 H (1.3-7.7) k/uL Lymphocytes # 0.8 L (1.0-4.8) k/uL PT (9.0-12.0) sec INR (<1.2) APTT (22.0-30.0) sec ABG pH (7.35-7.45) ABG pCO2 (35-45) mmHg ABG pO2 (83-108) mmHg ABG HCO3 (21-25) mmol/L ABG Total CO2 (19-24) mmol/L ABG O2 Saturation (94-97) % Sodium 135 L (137-145) mmol/L Potassium (3.5-5.1) mmol/L Chloride 97 L (98-107) mmol/L Carbon Dioxide 34 H (22-30) mmol/L BUN 40 H (9-20) mg/dL Creatinine 2.57 H (0.66-1.25) mg/dL Glucose 263 H (74-99) mg/dL POC Glucose (mg/dL) (75-99) mg/dL Plasma Lactic Acid Jerrell 4.2 H* (0.7-2.0) mmol/L Magnesium (1.6-2.3) mg/dL AST (17-59) U/L ALT (4-49) U/L Alkaline Phosphatase (38-126) U/L Creatine Kinase (55-170) U/L CK-MB (CK-2) (0.0-2.4) ng/mL Troponin I (0.000-0.034) ng/mL Total Protein (6.3-8.2) g/dL Albumin (3.5-5.0) g/dL 12/26/19 12/26/19 12/26/19 Range/Units 04:11 06:39 11:14 WBC (3.8-10.6) k/uL RBC (4.30-5.90) m/uL Hgb (13.0-17.5) gm/dL Hct (39.0-53.0) % MCHC (31.0-37.0) g/dL Neutrophils # (1.3-7.7) k/uL Lymphocytes # (1.0-4.8) k/uL PT (9.0-12.0) sec INR (<1.2) APTT (22.0-30.0) sec ABG pH (7.35-7.45) ABG pCO2 55 H 57 H (35-45) mmHg ABG pO2 72 L 68 L (83-108) mmHg ABG HCO3 32 H 33 H (21-25) mmol/L ABG Total CO2 34 H 35 H (19-24) mmol/L ABG O2 Saturation 93.4 L (94-97) % Sodium (137-145) mmol/L Potassium (3.5-5.1) mmol/L Chloride (98-107) mmol/L Carbon Dioxide (22-30) mmol/L BUN (9-20) mg/dL Creatinine (0.66-1.25) mg/dL Glucose (74-99) mg/dL POC Glucose (mg/dL) 299 H (75-99) mg/dL Plasma Lactic Acid Jerrell (0.7-2.0) mmol/L Magnesium (1.6-2.3) mg/dL AST (17-59) U/L ALT (4-49) U/L Alkaline Phosphatase (38-126) U/L Creatine Kinase (55-170) U/L CK-MB (CK-2) (0.0-2.4) ng/mL Troponin I (0.000-0.034) ng/mL Total Protein (6.3-8.2) g/dL Albumin (3.5-5.0) g/dL 12/26/19 Range/Units 11:37 WBC (3.8-10.6) k/uL RBC (4.30-5.90) m/uL Hgb (13.0-17.5) gm/dL Hct (39.0-53.0) % MCHC (31.0-37.0) g/dL Neutrophils # (1.3-7.7) k/uL Lymphocytes # (1.0-4.8) k/uL PT (9.0-12.0) sec INR (<1.2) APTT (22.0-30.0) sec ABG pH 7.20 L (7.35-7.45) ABG pCO2 89 H* (35-45) mmHg ABG pO2 61 L (83-108) mmHg ABG HCO3 34 H (21-25) mmol/L ABG Total CO2 37 H (19-24) mmol/L ABG O2 Saturation 83.8 L (94-97) % Sodium (137-145) mmol/L Potassium (3.5-5.1) mmol/L Chloride (98-107) mmol/L Carbon Dioxide (22-30) mmol/L BUN (9-20) mg/dL Creatinine (0.66-1.25) mg/dL Glucose (74-99) mg/dL POC Glucose (mg/dL) (75-99) mg/dL Plasma Lactic Acid Jerrell (0.7-2.0) mmol/L Magnesium (1.6-2.3) mg/dL AST (17-59) U/L ALT (4-49) U/L Alkaline Phosphatase (38-126) U/L Creatine Kinase (55-170) U/L CK-MB (CK-2) (0.0-2.4) ng/mL Troponin I (0.000-0.034) ng/mL Total Protein (6.3-8.2) g/dL Albumin (3.5-5.0) g/dL Microbiology - Last 24 Hours (Table) 12/26/19 00:01 Gram Stain - Preliminary Sputum Sputum Culture - Preliminary Assessment and Plan Plan: Status post cardio pulmonary arrest etiology of cardio pulmonary arrest is not clear. May be cardiac arrhythmia -Acute hypoxic respiratory failure status post cardio pulmonary arrest and secondary to cardiopulmonary arrest with aspiration pneumonia -Recent epidural abscess -History of cervical radiculopathy -Acute renal failure -8 sleep apnea -COPD -Type 2 diabetes mellitus -Hypertension -Depression Patient was terminally weaned subsequently . Please refer to nursing documentation for executive of
[2019-12-26] MEDS ORDERED: VANCOMYCIN 2,000 MG in SODIUM CHLORIDE 0.9% 500 ML 500 ML IVPB SCH (21:00)
--- NOTE | 2019-12-30 11:54 | CDI ---
Documentation Clarification Form Date: 12/30/2019 11:29:39 AM From: Huong Plascencia CCS, CCDS Admit Date: 12/25/2019 09:03:00 PM Patient Name: Sergio Martini Visit Number: [id number] Discharge Date: 12/26/2019 04:35:00 PM ATTENTION: The Clinical Documentation Specialists (CDI) and [facility] Coding Staff appreciate your assistance in clarifying documentation. Please respond to the clarification below the line at the bottom and electronically sign. The CDI & [facility] Coding staff will review the response and follow-up if needed. Please note: Queries are made part of the Legal Health Record. If you have any questions, please contact the author of this message via ITS. Dr. Abby Muñoz: Per the 12/24 ED Note under History of Present Illness: "Patient was just discharged from the hospital. "Patient was admitted for acute non-Q-wave myocardial infarction to be managed conservatively." Patient History/Risk Factors: Smoker, Recent epidural abscess, Cervical Radiculopathy status post Cervical Fusion, Obstructive Sleep Apnea, COPD, DM II with neuropathy, Hypertension. Clinical Indicators: Patient arrived to ED on 12/24 in Cardiac Arrest which developed in route to Subacute Rehab after being hospitalized & treated for a cervical abscess, discharged with a PICC line for antibiotics. Resuscitation effort was made by EMS, intubated in the ED & admitted to ICU, terminally weaned & next day. Per the Cardiology Consult on 12/09: Patient does not follow with a digital design engineer. Consulted for elevated troponin. Evaluated during previous admission (11/10 - 10/31/2019) for chest pain. Cardiac meds include Norvasc, Pravastatin & Metoprolol. Assessment: elevated troponins, may be secondary to infectious process however cannot rule out CAD. Troponin 12/24: 0.035^^. EKG Results 12/24: R 116, Sinus tachycardia, RBBB, Left posterior fascicular block, Bifascicular block, consider inferior ischemia. Treatment 12/24: CPR, Intubation & ventilation, IV Norepinephrine, IV Dextrose, IV Insulin, IV NaBicarb, po Kayexalate, IV Zosyn, IV Calcium Gluconate, IV Vancomycin, Rectal Aspirin, INH Albuterol/Ipratropium. Cardiology Consult 12/25: Status post cardiac arrest, probably mediated by acidosis & hyperkalemia. Repeat ECHO & troponins. In your professional opinion, please clarify the specificity of the documented NSTEMI: NSTEMI ruled out NSTEMI ruled in: Please clarify if a NSTEMI occurred during the previous admission (include the specific date if known): Please clarify if a NSTEMI occurred during the current admission (12/24- 12/26/2019) Unable to determine Other Condition, please specify (Last Revision: December 2016) MTDD
--- NOTE | 2020-01-04 07:50 | CDI ---
Documentation Clarification Form Date: 12/30/2019 11:29:00 AM From: Huong Plascencia CCS, CCDS Admit Date: 12/25/2019 09:03:00 PM Patient Name: Sergio Martini Visit Number: [id number] Discharge Date: 12/26/2019 04:35:00 PM ATTENTION: The Clinical Documentation Specialists (CDI) and [facility] Coding Staff appreciate your assistance in clarifying documentation. Please respond to the clarification below the line at the bottom and electronically sign. The CDI & [facility] Coding staff will review the response and follow-up if needed. Please note: Queries are made part of the Legal Health Record. If you have any questions, please contact the author of this message via ITS. Dr. Abby Muñoz: Per the 12/24 ED Note under History of Present Illness: "Patient was just discharged from the hospital." "Patient was admitted for acute non-Q-wave myocardial infarction to be managed conservatively." Patient History/Risk Factors: Smoker, Recent epidural abscess, Cervical Radiculopathy status post Cervical Fusion, Obstructive Sleep Apnea, COPD, DM II with neuropathy, Hypertension. Clinical Indicators: Patient arrived to ED on 12/24 in Cardiac Arrest which developed in route to Subacute Rehab after being hospitalized & treated for a cervical abscess, discharged with a PICC line for antibiotics. Resuscitation effort was made by EMS, intubated in the ED & admitted to ICU, terminally weaned & next day. Per the Cardiology Consult on 12/09: Patient does not follow with a clinical pathologist. Consulted for elevated troponin. Evaluated during previous admission (11/10 - 10/31/2019) for chest pain. Cardiac meds include Norvasc, Pravastatin & Metoprolol. Assessment: elevated troponins, may be secondary to infectious process however cannot rule out CAD. Troponin 12/24: 0.035^^. EKG Results 12/24: R 116, Sinus tachycardia, RBBB, Left posterior fascicular block, Bifascicular block, consider inferior ischemia. Treatment 12/24: CPR, Intubation & ventilation, IV Norepinephrine, IV Dextrose, IV Insulin, IV NaBicarb, po Kayexalate, IV Zosyn, IV Calcium Gluconate, IV Vancomycin, Rectal Aspirin, INH Albuterol/Ipratropium. Cardiology Consult 12/25: Status post cardiac arrest, probably mediated by acidosis & hyperkalemia. Repeat ECHO & troponins. In your professional opinion, please clarify the specificity of the documented NSTEMI: NSTEMI ruled out NSTEMI ruled in: Please clarify if a NSTEMI occurred during the previous admission (include the specific date if known): Please clarify if a NSTEMI occurred during the current admission (12/24- 12/26/2019) Unable to determine Other Condition, please specify (Last Revision: December 2016) Unable to determine MTDD
== END 2019-12-26 16:35 | disposition expired | DRG 308 ==
LOC: EC 19:38 → 2SICU 21:03
PROVIDERS: ADMIT Hospitalist; ATTEND Hospitalist
PROC: 5A1935Z Respiratory Ventilation, Less than 24 Consecutive Hours (ICD-10-PCS; principal; 2019-12-25)
PROC: 4A133B1 Monitoring of Arterial Pressure, Peripheral, Percutaneous Approach (ICD-10-PCS; principal; 2019-12-25)
PROC: 5A12012 Performance of Cardiac Output, Single, Manual (ICD-10-PCS; principal; 2019-12-25)
PROC: 02HV33Z Insertion of Infusion Device into Superior Vena Cava, Percutaneous Approach (ICD-10-PCS; principal; 2019-12-25)
PROC: 0D9670Z Drainage of Stomach with Drainage Device, Via Natural or Artificial Opening (ICD-10-PCS; principal; 2019-12-25)
PROC: 3E033XZ Introduction of Vasopressor into Peripheral Vein, Percutaneous Approach (ICD-10-PCS; principal; 2019-12-25)
PROC: 4A133J1 Monitoring of Arterial Pulse, Peripheral, Percutaneous Approach (ICD-10-PCS; principal; 2019-12-25)
PROC: 03HY32Z Insertion of Monitoring Device into Upper Artery, Percutaneous Approach (ICD-10-PCS; principal; 2019-12-25)
PROC: 0BH17EZ Insertion of Endotracheal Airway into Trachea, Via Natural or Artificial Opening (ICD-10-PCS; principal; 2019-12-25)
DX: R00.1 Bradycardia, unspecified (principal); G93.41 Metabolic encephalopathy; I50.31 Acute diastolic (congestive) heart failure; J96.21 Acute and chronic respiratory failure with hypoxia; J69.0 Pneumonitis due to inhalation of food and vomit; G06.1 Intraspinal abscess and granuloma; E87.2 Acidosis; N17.9 Acute kidney failure, unspecified; G93.1 Anoxic brain damage, not elsewhere classified; E87.5 Hyperkalemia; G47.33 Obstructive sleep apnea (adult) (pediatric); I45.10 Unspecified right bundle-branch block; E11.40 Type 2 diabetes mellitus with diabetic neuropathy, unspecified; K76.0 Fatty (change of) liver, not elsewhere classified; I11.0 Hypertensive heart disease with heart failure; J44.9 Chronic obstructive pulmonary disease, unspecified; F31.9 Bipolar disorder, unspecified; F17.210 Nicotine dependence, cigarettes, uncomplicated; M19.90 Unspecified osteoarthritis, unspecified site; I08.1 Rheumatic disorders of both mitral and tricuspid valves; M54.30 Sciatica, unspecified side; T42.75XA Adverse effect of unspecified antiepileptic and sedative-hypnotic drugs, initial encounter; I46.2 Cardiac arrest due to underlying cardiac condition; G89.29 Other chronic pain; R91.8 Other nonspecific abnormal finding of lung field; F10.11 Alcohol abuse, in remission; F41.9 Anxiety disorder, unspecified; K21.9 Gastro-esophageal reflux disease without esophagitis; Z79.4 Long term (current) use of insulin; Z86.14 Personal history of Methicillin resistant Staphylococcus aureus infection; Z87.01 Personal history of pneumonia (recurrent); Z99.89 Dependence on other enabling machines and devices; Z79.899 Other long term (current) drug therapy; Z90.89 Acquired absence of other organs; Z90.49 Acquired absence of other specified parts of digestive tract; Z98.1 Arthrodesis status; Z88.8 Allergy status to other drugs, medicaments and biological substances; Z82.49 Family history of ischemic heart disease and other diseases of the circulatory system
CPT/HCPCS: 31500; 36415; 36556; 71045; 80048; 80053; 82330; 82550; 82553; 82805; 83605; 83690; 83735; 84132; 84484; 85025; 85610; 85730; 87040; 87070; 87205; 92950; 93005; 94002; 94003; 94640; 96365; 96367; 96368; 96375; 99291; 99292